=== PATIENT | female | born 1975 | race Caucasian/White ===

== ENCOUNTER 2021-12-12 09:52 | Outpatient (CLI) | payer BC, SELFPAY ==
--- OUTSIDE RECORDS SUMMARY | 2021-12-12 09:56 | XMS_ITS | Encounter Summary ---
:1975 Author Organization [facility] Address [address] [place] [address] Care Team Providers Name Role Phone Lee Hannon MD Primary Care Provider Reason for Visit Reason Comments Med Refill Encounter Details Date Type Department Care Team Description 09/10/2020 Refill Lee Berkowitz MD Anxiety [address] [place] [address] [place] [address] [place] [address] (Wo rk) Social History Tobacco Use Types Packs/Day Years Used Date Never Smoker Smokeless Tobacco: Never Used Alcohol Use Standard Drinks/Week Comments Never 0 (1 standard drink = 0.6 oz pure alcoho l) Alcohol Habits Answer Date Recorded How often do you have a drink containing alcohol? Never 02/13/2020 How many drinks containing alcohol do you have on a typical Not asked day when you are drinking? How often do you have six or more drinks on one occasion? No t asked Comment: Not asked Sex Assigned at Date Recorded Female 04/13/2021 4:03 PM BOW STRING MAKER documented as of this encounter Miscellaneous Notes Telephone Encounter - Lee Hannon MD - 09/14/2020 12:40 PM CDT Rx sent Telephone Encounter - Hayley Valadez MA - 09/14/2020 6:04 AM CDT Last visit in provider department: 07/09/2020 Last visit requested medication was discussed: 02/26/20 Upcoming appointment with provider: none Last Rx: 03/11/20, #180, 1 refill Requested Prescriptions Pending Prescriptions Disp Refills ??? venlafaxine XR (EFFEXOR-XR) 150 MG 24 hr capsule [Pharmacy Med Name: VENLAFAXINE HCL ER 150MG CP24] 180 capsule 1 Sig: TAKE ONE CAPSULE BY MOUTH TWICE A DAY WITH FOOD 07/09/20:PHQ-9: 12 / JUAREZ-7: 15 Vitals: BP Readings from Last 2 Encounters: 07/09/20 122/80 03/10/20 128/82 documented in this encounter Plan of Treatment Not on filedocumented as of this encounter Visit Diagnoses Diagnosis Anxiety Anxiety state, unspecified documented in this encounter Care Teams Senior Information Security Consultant Relationship Specialty Start Date End Date Lee Hannon MD PCP - General Family Medicine 02/26/20 03/20/[address] [place] [address] documented as of this encounter
--- OUTSIDE RECORDS SUMMARY | 2021-12-12 09:56 | XMS_ITS | Encounter Summary ---
:1975 Author Organization [facility] Address [address] [place] [address] Care Team Providers Name Role Phone Benito Leonardo MD Primary Care Provider Reason for Visit Reason Comments Med Refill Encounter Details Date Type Department Care Team Description 03/11/2021 Refill [place] Joseph Guevara MD Restless legs [address] [place], [place] [address] [place], [place] [phone] (Wo rk) Social History Tobacco Use Types [...] at Date Recorded Female 04/13/2021 4:03 PM TECHNICAL COMMUNICATOR documented as of this encounter Miscellaneous Notes Telephone Encounter - Hayley Valadez MA - 03/14/2021 6:39 AM TECHNICAL COMMUNICATOR Rx completed on 05/25/20, #90, 3 refills Requested Prescriptions Pending Prescriptions Disp Refills ??? rOPINIRole (REQUIP) 1 MG tablet [Pharmacy Med Name: ROPINIROLE HCL 1MG TABS] 90 tablet 3 Sig: TAKE ONE TABLET BY MOUTH AT NIGHT FOR RESTLESS LEG SYNDROME E-Prescribing Status: Receipt confirmed by pharmacy (05/25/2020 ??5:39 PM CDT) NICAL COMMUNICATOR documented in this encounter Plan of Treatment Not on filedocumented as of this encounter Visit Diagnoses Diagnosis Restless legs Restless legs syndrome (RLS) documented in this encounter Care Teams Licensed Reactor Operator Relationship Specialty Start Date End Date Benito Leonardo MD PCP - General 11/17/[address] [place] [address] documented as of this encounter
--- OUTSIDE RECORDS SUMMARY | 2021-12-12 09:56 | XMS_ITS | Encounter Summary ---
:1975 Author Organization [facility] Address [address] [place] [address] Care Team Providers Name Role Phone Lee Hannon MD Primary Care Provider Reason for Visit Reason Onset Date Comments Ropinirole refill 03/19/2020 Encounter Details Date Type Department Care Team Description 03/19/2020 Telephone [place] None, Pcp Ropinirole refill [address] [place], [place] [address] [place], [place] [phone] Social History Tobacco Use Types Packs/Day Years [...] at Date Recorded Female 04/13/2021 4:03 PM LOGISTIC SPECIALIST documented as of this encounter Miscellaneous Notes Telephone Encounter - Joseph Guevara MD - 03/19/2020 5:27 PM CST I called and talked to Mirella and sent in the RX STIC SPECIALIST Telephone Encounter - Maty Barbour RN - 03/19/2020 4:02 PM CST Please review request, patient has not been seen in [place] since 02/2019, last evaluated in OBGYN. STIC SPECIALIST Telephone Encounter - Trang Ivan - 03/19/2020 3:39 PM CST Pt called stating she had contacted her pharmacy [facility] last week to have her Ropinirole refilled and they have not heard anything back yet. Please call Pt at [phone] to advise. STIC SPECIALIST documented in this encounter Plan of Treatment Not on filedocumented as of this encounter Visit Diagnoses Diagnosis Restless legs Restless legs syndrome (RLS) documented in this encounter Care Teams An/Syq 13 Nav/C2 Operator Relationship Specialty Start Date End Date Lee Hannon MD PCP - General Family Medicine 02/26/20 03/20/[address] [place] [address] documented as of this encounter
--- OUTSIDE RECORDS SUMMARY | 2021-12-12 09:56 | XMS_ITS | Encounter Summary ---
:1975 Author Organization [facility] Address [address] [place] [address] Care Team Providers Name Role Phone Lee Hannon MD Primary Care Provider Encounter Details Date Type Department Care Team Description 05/06/2020 Orders Only Family Med Lee Hannon MD [address] [facility] [address] [place] [address] [place] [phone] [place] [phone] (Wo rk) Social History Tobacco Use Types [...] at Date Recorded Female 04/13/2021 4:03 PM PLAY THERAPIST documented as of this encounter Plan of Treatment Not on filedocumented as of this encounter Visit Diagnoses Not on filedocumented in this encounter Care Teams Boarder Steam Relationship Specialty Start Date End Date Lee Hannon MD PCP - General Family Medicine 02/26/20 03/20/[address] [place] [phone] documented as of this encounter
--- OUTSIDE RECORDS SUMMARY | 2021-12-12 09:56 | XMS_ITS | Encounter Summary ---
:1975 Author Organization [facility] Address [address] [place] [address] Care Team Providers Name Role Phone Lee Hannon MD Primary Care Provider Reason for Visit Reason Onset Date Comments increase dose on the ropinirole 05/25/2020 Encounter Details Date Type Department Care Team Description 05/25/2020 Telephone Joseph Washington increase dose on the [address] [address] MD Elijah ropinirole [place], [place] [address] [place] [address] [place] [address] Social History Tobacco Use Types Packs/Day Years [...] at Date Recorded Female 04/13/2021 4:03 PM SANTA'S HELPER documented as of this encounter Miscellaneous Notes Telephone Encounter - Maty Barbour RN - 05/26/2020 8:05 AM CDT Patient informed. Telephone Encounter - Joseph Guevara MD - 05/25/2020 5:39 PM CDT I have sent in a new prescription for Mirella for the 1 mg pill that she can take 1 at night. Any problems let me know Telephone Encounter - Maty Barbour RN - 05/25/2020 1:31 PM CDT Please advise on request for Requip Rx at a higher dose. Telephone Encounter - Honey Russo - 05/25/2020 1:08 PM CDT Pt calls stating that she has been taking 2 pills of her ropinirole for her restless leg syndrome and she is out now. She is wondering if Dr. Nava would send in a refill for the increased dose to [facility] pharmacy? Please advise. documented in this encounter Plan of Treatment Not on filedocumented as of this encounter Visit Diagnoses Diagnosis Restless legs Restless legs syndrome (RLS) documented in this encounter Care Teams Spring Former Hand Relationship Specialty Start Date End Date Lee Hannon MD PCP - General Family Medicine 02/26/20 03/20/[address] [place] [address] documented as of this encounter
--- OUTSIDE RECORDS SUMMARY | 2021-12-12 09:56 | XMS_ITS | Encounter Summary ---
:1975 Author Organization [facility] Address [address] [place] [address] Care Team Providers Name Role Phone Lee Hannon MD Primary Care Provider Reason for Visit Reason Onset Date Comments med refill 11/24/2020 Encounter Details Date Type Department Care Team Description 11/24/2020 Telephone Joseph Washington MD med refill [address] [place], [place] [address] [place], [place] [phone] (Wo rk) Social History Tobacco Use Types [...] at Date Recorded Female 04/13/2021 4:03 PM EMPLOYEE RELATIONS SPECIALIST documented as of this encounter Miscellaneous Notes Telephone Encounter - Celi Monson LPN - 11/25/2020 9:24 AM CDT Patient informed Telephone Encounter - Joseph Guevara MD - 11/25/2020 8:38 AM CDT Prescription for albuterol inhaler [facility] to [facility] Telephone Encounter - Maty Barbour RN - 11/25/2020 7:56 AM CDT Review request. Telephone Encounter - Lucy Patel - 11/24/2020 4:54 PM CDT Patient needs RX refilled. Albuterol inhaler. She cannot come in right now as she has covid. Diagnosed last week. Coughing a lot on the phone. Please send to [facility] [place] documented in this encounter Plan of Treatment Not on filedocumented as of this encounter Visit Diagnoses Diagnosis Reactive airway disease without complica tion, unspecified asthma severity, unspecified whether persistent documented in this encounter Care Teams Giver Relationship Specialty Start Date End Date Lee Hannon MD PCP - General Family Medicine 02/26/20 03/20/[address] [place] [address] documented as of this encounter
--- OUTSIDE RECORDS SUMMARY | 2021-12-12 09:56 | XMS_ITS | Encounter Summary ---
:1975 Author Organization [facility] Address [address] [place] [address] Care Team Providers Name Role Phone Benito Leonardo MD Primary Care Provider Reason for Visit Reason Comments Med Refill Encounter Details Date Type Department Care Team Description 06/06/2021 Refill [facility] Chelle Jacques MD Palpitations [address] [place] [address] [place] [address] [place] [address] [phone] (Wo rk) Social History Tobacco Use Types [...] at Date Recorded Female 04/13/2021 4:03 PM MEDIA ACCOUNT EXECUTIVE documented as of this encounter Miscellaneous Notes Telephone Encounter - Rossana Villatoro LPN - 06/07/2021 6:01 AM CDT Requested Prescriptions Pending Prescriptions Disp Refills ??? verapamil SR (CALAN-SR) 120 MG CR tablet [Pharmacy Med Name: VERAPAMIL HCL ER 120MG TBCR] 90 tablet 3 Sig: TAKE 1 TABLET BY MOUTH EVERY NIGHT. DO NOT CRUSH OR CHEW Last rx: verapamil SR (CALAN-SR) 120 MG CR tablet [[id number]] ?? Order Details Dose, Route, Frequency: As Directed Dispense Quantity: 100 tablet Refills: 1 ?? Sig: TAKE 1 TABLET BY MOUTH EVERY NIGHT. DO NOT CRUSH OR CHEW ?? Start Date: 03/15/21 End Date: -- Written Date: 03/15/21 Expiration Date: 03/15/22 E-prescribed to requesting pharmacy, [facility] - [place], [place] - [address] [place] [address], E-Prescribing Status: Receipt confirmed by pharmacy (03/15/2021 ??2:13 PM MEDIA ACCOUNT EXECUTIVE) Refill available at requesting pharmacy. Pharmacy notified. documented in this encounter Plan of Treatment Not on filedocumented as of this encounter Visit Diagnoses Diagnosis Palpitations documented in this encounter Care Teams Hand Method Lasting Machine Operator Relationship Specialty Start Date End Date Benito Leonardo MD PCP - General 11/17/[address] [place] [address] documented as of this encounter
--- OUTSIDE RECORDS SUMMARY | 2021-12-12 09:56 | XMS_ITS | Encounter Summary ---
:[address] [facility] Address [address] [place] [address] Care Team Providers Name Role Phone Lee Hannon MD Primary Care Provider Reason for Visit Reason Onset Date Comments RX 05/12/2020 Encounter Details Date Type Department Care Team Description 05/12/2020 Telephone Joseph Washington MD RX [address] [facility] [address] [place], [place] [address] [place], [place] [phone] (Wo rk) Social History Tobacco Use Types [...] at Date Recorded Female 04/13/2021 4:03 PM TELEPATHIST documented as of this encounter Miscellaneous Notes Telephone Encounter - Maty Barbour RN - 05/12/2020 1:57 PM CDT Patient informed. Telephone Encounter - Joseph Guevara MD - 05/12/2020 12:32 PM CDT I reviewed Nando's notations and did not see nothing specific other than the fact that she does haveseasonal allergies. However I did send him to [facility] for Medrol Dosepak and 1 refill. Call Mirella let her know that I sent in for the Medrol Dosepak. The Medrol Dosepak a course is for 6 days starting at 6 pills a day going down to 1 pill a day. If she had a different form of prednisone that she prefers let me know. Telephone Encounter - Maty Barbour RN - 05/12/2020 11:24 AM CDT Please review request, previous Nando patient. Telephone Encounter - Marleen Bond - 05/12/2020 10:57 AM CDT Patient is requesting RX for prednisone sent to [facility] for her allergies. Please advise. documented in this encounter Plan of Treatment Not on filedocumented as of this encounter Visit Diagnoses Diagnosis Seasonal allergies - Primary Allergic rhinitis, cause unspecified documented in this encounter Care Teams Gas Utility Worker Relationship Specialty Start Date End Date Lee Hannon MD PCP - General Family Medicine 02/26/20 03/20/[address] [place] [address] documented as of this encounter
--- OUTSIDE RECORDS SUMMARY | 2021-12-12 09:56 | XMS_ITS | Encounter Summary ---
:1975 Author Organization [facility] Address [address] [place] [address] Care Team Providers Name Role Phone Lee Hannon MD Primary Care Provider Reason for Visit Reason Onset Date Comments Med Refill 03/10/2020 Encounter Details Date Type Department Care Team Description 03/10/2020 Refill [facility] Virtual Assistant [address] [place] [address] [place] [address] [place], [place] [address] [phone] Social History Tobacco Use Types Packs/Day Years [...] at Date Recorded Female 04/13/2021 4:03 PM CRIMINAL JUDGE documented as of this encounter Miscellaneous Notes Telephone Encounter - Maty Barbour RN - 03/11/2020 11:13 AM CST Please review request patient used to see Katty Rojas. INAL JUDGE Telephone Encounter - Marleen Bond - 03/11/2020 10:57 AM CST Patient is requesting this today please. She is out. INAL JUDGE Telephone Encounter - Vania Ramos LPN - 03/10/2020 3:40 PM CRIMINAL JUDGE Last visit in provider department: 02/26/2020 Last visit requested medication was discussed:02/26/20 Upcoming appointment with provider: Visit date not found Last Rx: 02/13/19 #180 with 3 refills Requested Prescriptions Pending Prescriptions Disp Refills ??? venlafaxine XR (EFFEXOR-XR) 150 MG 24 hr capsule 180 capsule 3 Sig: Take 1 capsule (150 mg total) by mouth 2 (two) times a day Take with food. 02/13/20 PHQ9- 10 GAD7- 15 INAL JUDGE documented in this encounter Plan of Treatment Not on filedocumented as of this encounter Visit Diagnoses Diagnosis Anxiety Anxiety state, unspecified documented in this encounter Care Teams Scoop Machine Operator Relationship Specialty Start Date End Date Lee Hannon MD PCP - General Family Medicine 02/26/20 03/20/[address] [place] [address] documented as of this encounter
--- OUTSIDE RECORDS SUMMARY | 2021-12-12 09:56 | XMS_ITS | Encounter Summary ---
:1975 Author Organization [facility] Address [address] [place] [address] Care Team Providers Name Role Phone Benito Leonardo MD Primary Care Provider Reason for Visit Reason Onset Date Comments venlafaxine XR (EFFEXOR-XR) 150 MG 24 hr capsule 11/22/2021 Encounter Details Date Type Department Care Team Description 11/22/2021 Telephone [place] Aguirre MD venlafaxine XR [address] [place] [address] (EFFEXOR-XR) 150 MG [address] [place] [address] Drive [address] hr capsule [phone] [place] [address] Social History Tobacco Use Types Packs/Day Years [...] at Date Recorded Female 04/13/2021 4:03 PM SUBSTANCE ABUSE COUNSELOR documented as of this encounter Miscellaneous Notes Telephone Encounter - Rachael Rene MA - 11/28/2021 5:22 AM CDT PA approved from 11/26/2021 - 11/26/2022. Pharmacy notified. ANH # [id number]. Telephone Encounter - Malgorzata Lu LPN - 11/22/2021 2:42 PM CDT venlafaxine XR (EFFEXOR-XR) 150 MG 24 hr capsule BIN: [id number] PCN: [facility]: PLAN: BCBS of [place] Medicaid PHONE: [phone] ID: [id number] PA completed per [facility], sent to insurance plan [place]: [id number] - [place] - Rx #: [id number] documented in this encounter Plan of Treatment Not on filedocumented as of this encounter Visit Diagnoses Not on filedocumented in this encounter Care Teams Scrap Materials Buyer Relationship Specialty Start Date End Date Benito Leonardo MD PCP - General 11/17/[address] [place] [address] documented as of this encounter
--- OUTSIDE RECORDS SUMMARY | 2021-12-12 09:56 | XMS_ITS | Encounter Summary ---
:[address] [facility] Address [address] [place] [address] Care Team Providers Name Role Phone Lee Hannon MD Primary Care Provider Reason for Visit Reason Onset Date Comments Med Refill 03/14/2021 Encounter Details Date Type Department Care Team Description 03/14/2021 Refill Lee Berkowitz MD Anxiety [address] [place] [address] [place] [address] [place] [address] (Wo rk) Social History [...] at Date Recorded Female 04/13/2021 4:03 PM FOOD PREPARER documented as of this encounter Miscellaneous Notes Telephone Encounter - Lee Hannon MD - 03/15/2021 2:20 PM CST Rx sent. See other rx request message PREPARER Telephone Encounter - Vania Ramos LPN - 03/14/2021 1:34 PM FOOD PREPARER Last visit in provider department: 02/26/20 Last visit requested medication was discussed: 02/26/20 Upcoming appointment with provider: Visit date not found Last Rx: 12/13/20 #180 no refills Requested Prescriptions Pending Prescriptions Disp Refills ??? venlafaxine XR (EFFEXOR-XR) 150 MG 24 hr capsule 180 capsule 0 Sig: TAKE ONE CAPSULE BY MOUTH TWICE A DAY WITH FOOD Labs: 03/05/20 Vitals: BP Readings from Last 2 Encounters: 07/09/20 122/80 03/10/20 128/82 Patient is due for CP appointment. PSR/Nurse: Please contact patient to assist with scheduling. PREPARER documented in this encounter Plan of Treatment Not on filedocumented as of this encounter Visit Diagnoses Diagnosis Anxiety Anxiety state, unspecified documented in this encounter Care Teams Flatwork Washer Relationship Specialty Start Date End Date Lee Hannon MD PCP - General Family Medicine 02/26/20 03/20/[address] [place] [address] documented as of this encounter
--- OUTSIDE RECORDS SUMMARY | 2021-12-12 09:56 | XMS_ITS | Clinical Summary ---
:1975 Author Organization [facility] Address [address] [place] [address] Care Team Providers Name Role Phone Benito Leonardo MD Primary Care Provider Allergies Active Allergy Reactions Severity Noted Date Comments Codeine Other (see comments) 05/09/2000 general ized disorientation Per patient: Ca nnot remember anything, out o f it, drunk-like Environmental 02/13/2019 Seasonal 02/13/2019 Medications Medication Sig Dispensed Refills Start Date End Date Status levonorgestrel 1 Device by 0 02/23/2017 Ac tive (MIRENA) 20 MCG/24HR Intrauterine route IUD rOPINIRole (REQUIP) Take ONE at night 90 tablet 3 05/25/2020 Active 1 MG for RESTLESS LEG tabletIndications: SYNDROME Restless legs albuterol HFA Inhale 2 puffs 8.5 g 11 11/25/2020 Active (ProAir HFA) 108 (90 every 4 (four) Base) MCG/ACT hours if needed inhalerIndications: for wheezing or Reactive airway shortness of disease without breath complication, unspecified asthma severity, unspecified whether persistent verapamil SR TAKE 1 TABLET BY 100 tablet 1 03/15/2021 Active (CALAN-SR) 120 MG CR MOUTH EVERY NIGHT. tabletIndications: DO NOT CRUSH OR Palpitations CHEW venlafaxine XR TAKE ONE CAPSULE 100 capsule 1 03/15/2021 Active (EFFEXOR-XR) 150 MG BY MOUTH TWICE A 24 hr DAY WITH FOOD capsuleIndications: Anxiety Active Problems Problem Noted Date COVID-19 11/21/2020 Overview: 11/16/20 Elevated blood-pressure reading without diagnosis of h ypertension 03/10/2020 Stress 03/10/2020 Abnormal EKG 03/09/2020 Palpitations 03/09/2020 Abnormal uterine bleeding 12/01/2019 Menorrhagia with irregular cycle 12/01/2019 Class 3 severe obesity in adult 12/01/2019 S/P laparoscopic sleeve gastrectomy 09/26/2017 Anxiety Encounters Date Type Specialty Care Team Description 11/22/2021 Telephone Family Medicine Lee Hannon MD venamarjit axine XR (EFFEXOR-XR) 15 0 MG 24 hr capsule 11/18/2021 Telephone Family Medicine Benito Leonardo MD from Last 3 Months Immunizations Name Administration Dates Next Due H1N1 Inj Preservative Free 03/17/2009 Hepatitis B 05/27/1996, 04/23/1996 INFLUENZA QUADRIVALENT MDV (IM) 11/26/2018 Influenza 6mo-49yrs Quad Preservative 11/30/2017 Free IM Influenza TIV (IM) 11/30/2017, 11/27/2016, 12/03/2013, 12/04/2012, 12/05/2011, 12/20/2010, 01/26/2009 Influenza, Unspecified 11/26/2018, 12/06/2015, 12/02/2014, 12/03/2013, 12/04/2012, 12/05/2011, 12/20/2010, 01/26/2009 TD Preservative Free 04/11/2006 Tdap 09/20/2017 Tetanus 04/11/2006 Family History Relation Status Comments Brother 1 Alive Brother 2 Alive Father Alive Mother Alive Sister Alive Son 1 Alive Son 2 Alive Son 3 Alive Social History Tobacco Use Types Packs/Day Years [...] at Date Recorded Female 04/13/2021 4:03 PM PUBLICATIONS DISTRIBUTION CLERK Last Filed Vital Signs Vital Sign Reading Time Taken Comments Blood Pressure 122/80 07/09/2020 3:47 PM CDT Pulse 92 07/09/2020 3:47 PM CDT Temperature 36.8 ??C (98.2 ??F) 07/09/2020 3:47 PM CDT Respiratory Rate 16 07/09/2020 3:47 PM CDT Oxygen Saturation 95% 07/09/2020 3:47 PM CDT Inhaled Oxygen Concentration - - Weight 128 kg (281 lb 9.6 oz) 07/09/2020 3:47 PM CDT Height 160 cm (5' 3) 07/09/2020 3:47 PM CDT Body Mass Index 49.88 07/09/2020 3:47 PM CDT Plan of Treatment Health Maintenance Due Date Last Done Comments CT Colonography 1975 Colonoscopy 1975 Colorectal Cancer Screening 1975 FIT-DNA 1975 Mammogram 1975 Sigmoidoscopy 1975 iFOBT 1975 COVID-19 Vaccine (#1) 02/10/1976 Asthma Action Plan 08/09/1980 Asthma Control Test 11/18/2022 11/18/2021, 11/18/2021 Pap Smear 11/30/2022 12/01/2019, 05/05/2015 HPV Vaccines Aged Out No longer eligib le based on patient's age to complete this to pic Pneumococcal Vaccine: Aged Out No longer eligible based Pediatrics (0 to 5 Years) and on patient's age to At-Risk Patients (6 to 64 comple te this topic Years) Insurance Payer Benefit Plan / Subscriber ID Effective Dates Phone Addre ss Type Group BCBS OF BCBS OF [id number] [place] [id number] [place] [address] Care Teams Information Technology Auditor Relationship Specialty Start Date End Date Benito Leonardo MD PCP - General 11/17/[address] [place] [address]
--- OUTSIDE RECORDS SUMMARY | 2021-12-12 09:56 | XMS_ITS | Encounter Summary ---
:[address] [facility] Address [address] [place] [address] Care Team Providers Name Role Phone Benito Leonardo MD Primary Care Provider Reason for Visit Reason Onset Date Comments Med Refill 12/10/2020 Encounter Details Date Type Department Care Team Description 12/10/2020 Refill [facility] Women's Health Lee Hernández MD [facility] Aquatics Director [address] [place] [phone] [place], [place] [address] [phone] Social History Tobacco Use Types Packs/Day Years [...] at Date Recorded Female 04/13/2021 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 AMATIC MECHANIC Telephone Encounter - Gabby Patiño - 12/13/2020 4:11 PM CST [facility] pt AMATIC MECHANIC Telephone Encounter - Lee Hannon MD - 12/13/2020 1:02 PM CST Call for mood, BP follow up visit AMATIC MECHANIC Telephone Encounter - Donna Hood MA - 12/10/2020 1:21 PM CDT Last visit in provider department: 02/26/2020 Last visit requested medication was discussed: 02/26/2020 Upcoming appointment with provider: None Last Rx: venlafaxine XR (EFFEXOR-XR) 150 MG 24 hr capsule, #180 with no refills 09/14/2020 Requested Prescriptions Pending Prescriptions Disp Refills ??? venlafaxine XR (EFFEXOR-XR) 150 MG 24 hr capsule 180 capsule 0 Sig: TAKE ONE CAPSULE BY MOUTH TWICE A DAY WITH FOOD Most Recent Value 06/14/2020 - 12/11/2020 PHQ-9 Total Score 12 07/09/2020 Most Recent Value 06/14/2020 - 12/11/2020 JUAREZ-7 Total Score 15 07/09/2020 Vitals: BP Readings from Last 2 Encounters: 07/09/20 122/80 03/10/20 128/82 Patient is due for an appointment. PSR/Nurse: Please contact patient to assist with scheduling. documented in this encounter Plan of Treatment Not on filedocumented as of this encounter Visit Diagnoses Diagnosis Anxiety Anxiety state, unspecified documented in this encounter Care Teams Junior Media Buyer Relationship Specialty Start Date End Date Benito Leonardo MD PCP - General 11/17/[address] [place] [address] documented as of this encounter
--- OUTSIDE RECORDS SUMMARY | 2021-12-12 09:56 | XMS_ITS | Encounter Summary ---
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 Pt has established care outside of [facility]. TEMPERER Telephone Encounter - Gabby Patiño - 03/18/2021 4:12 PM CST LMTC at [phone] TEMPERER Telephone Encounter - Gabby Patiño - 03/16/2021 9:13 AM CST TC at [phone] TEMPERER Telephone Encounter - Lee Hannon MD - 03/15/2021 2:13 PM CST Rx sent Due for annual visit- follow up of hypertension and bariatric surgery labs. Please assist with scheduling. If she is in agreement, I will order previsit labs, please return message to me for orders. Of note- I saw her in [facility] (not in [place]) but she lives in [place] and had [facility] [place] [facility] locations for follow [facility]. TEMPERER Telephone Encounter - Rossana Villatoro LPN - 03/14/2021 6:36 AM CST Last visit in provider department: 07/09/2020 Last visit requested medication was discussed: med/dx has not been reviewed in the last year Upcoming appointment with provider: Visit date not found Last Rx: #90, 3 refills 05/13/2020 Request for next cycle Requested Prescriptions Pending Prescriptions Disp Refills ??? verapamil SR (CALAN-SR) 120 MG CR tablet [Pharmacy Med Name: VERAPAMIL HCL ER 120MG TBCR] 90 tablet 3 Sig: TAKE 1 TABLET BY MOUTH EVERY NIGHT. DO NOT CRUSH OR CHEW Labs: Results > one year old. No pending labs. Lab Results Component Value Date CREATININE 0.6 03/05/2020 BUN 14 03/05/2020 NA 135 03/05/2020 K 3.7 03/05/2020 CL 102 03/05/2020 CO2 25 03/05/2020 Vitals: BP Readings from Last 2 Encounters: 07/09/20 122/80 03/10/20 128/82 Patient is due for CP appointment. PSR/Nurse: Please contact patient to assist with scheduling. TEMPERER documented in this encounter Plan of Treatment Not on filedocumented as of this encounter Visit Diagnoses Diagnosis Palpitations documented in this encounter Care Teams Livestock Haulier Relationship Specialty Start Date End Date Benito Leonardo MD PCP - General 11/17/21 [address] [place] [address] documented as of this encounter
--- OUTSIDE RECORDS SUMMARY | 2021-12-12 09:56 | XMS_ITS | Encounter Summary ---
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 documented as of this encounter Last Filed Vital Signs Vital Sign Reading Time Taken Comments Blood Pressure 128/94 03/05/2020 1:18 PM STAFF AIR TACTICAL OFFICER Pulse - - Temperature - - Respiratory Rate - - Oxygen Saturation - - Inhaled Oxygen Concentration - - Weight - - Height - - Body Mass Index - - documented in this encounter Plan of Treatment Not on filedocumented as of this encounter Visit Diagnoses Not on filedocumented in this encounter Care Teams Reel Cutter Relationship Specialty Start Date End Date Lee Hannon MD PCP - General Family Medicine 02/26/20 03/20/[address] [place] [address] documented as of this encounter
--- OUTSIDE RECORDS SUMMARY | 2021-12-12 09:56 | XMS_ITS | Encounter Summary ---
:1975 Author Organization [facility] Address [address] [place] [address] Care Team Providers Name Role Phone Lee Hannon MD Primary Care Provider Reason for Visit Reason Comments Advice Only Consultation (Routine) - Closed Specialty Diagnoses / Procedures Referred By Contact Refer red To Contact Cardiology Diagnoses Right bundle branch block (RBBB) determined by electrocardiography Ashely Peterson, Cardiology [address] [place] [address] [address] [place] [address] [place], [place] Phone: [phone] Fax: Referral ID Status Reason Start Date Expiration Date Visits V isits Requested Authorized [id number] Closed Specialty 02/13/2020 02/12/2021 1 1 Services Required Encounter Details Date Type Department Care Team Description 03/10/2020 Consult [facility] Chelle Jacques, Palpitations (Primary Dx); [address] [place] [address] Abnormal EKG; [place] [address] [place] [address] Class 3 severe obesity without serious c omorbidity with body mass index (BMI) of 40.0 to 44.9 in adult, unspecified obesity type (HCC); [phone] [place], [place] [address] Elevated blood-pressure reading without diagnosis of hypertension; [phone] (Wo rk) Anxiety; Stress Social History Tobacco Use Types Packs/Day Years [...] at Date Recorded Female 04/13/2021 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 documented as of this encounter Last Filed Vital Signs Vital Sign Reading Time Taken Comments Blood Pressure 128/82 03/10/2020 8:42 AM CEMETERY WORKER Pulse 89 03/10/2020 8:42 AM CEMETERY WORKER Temperature 36.7 ??C (98 ??F) 03/10/2020 8:42 AM CEMETERY WORKER Respiratory Rate 16 03/10/2020 8:42 AM CEMETERY WORKER Oxygen Saturation 98% 03/10/2020 8:42 AM CEMETERY WORKER Inhaled Oxygen Concentration - - Weight 116 kg (256 lb 3.2 oz) 03/10/2020 8:42 AM CEMETERY WORKER Height - - Body Mass Index 45.38 02/26/2020 4:04 PM CEMETERY WORKER documented in this encounter Patient Instructions Patient InstructionsChelle Jacques MD - 03/10/2020 8:40 AM CST 1. Discontinue short acting verapamil 2. Start taking long-acting verapamil 180 mg every night 3. Purchase appropriate blood pressure cuff (not wrist one) 4. Check blood pressure and heart rate once daily and record 5. Consider checking blood pressure and heart rate when you feel that your heart racing and record 6. Contact Dr. Jacques in 1 to 2 weeks with an update on your symptoms as well as your blood pressure and heart rate readings TERY WORKER documented in this encounter Progress Notes Chelle Jacques MD - 03/10/2020 8:40 AM CST Images from the original note were not included. CARDIOLOGY OUTPATIENT CONSULTATION NOTE REQUESTING PROVIDER Ashely Peterson MD [address] [place] [phone] PRIMARY CARE PROVIDER Lee Hannon MD CHIEF COMPLAINT/REASON FOR VISIT Palpitations and abnormal ECG HISTORY OF PRESENT ILLNESS Mirella Edwards is a very pleasant 44-year-old woman who was referred for palpitations and an abnormal ECG. She has no known cardiovascular history. Ms. Edwards states that she has been feeling her heart racing and/or pounding since last summer. She reports that she usually feels her heart racing while at rest such as sitting at her desk at work, watching TV, or eating dinner. She occasionally feels her heart racing while she is in bed and sometimes her heart races with activity. Her heart racing episodes can last anywhere between 2 minutes to 2 hours and tend to occur several times weekly. Her heart racing episodes start all of a sudden and resolve gradually over the course of approximately 5 minutes. During her heart racing episodes, she tendsto feel slightly woozy and a little bit short of breath. She denies syncope. She has had no peripheral edema. In addition to the racing heart episodes, she also sometimes feels like her heart is pounding. She particularly notices this while she is in bed or at her desk at work. She has checked her smart watch several times while her heart was racing and her heart rate reading was reportedly normal. Ms. Edwards is wondering if her symptoms may be due to, at least in part, to stress and anxiety. She reports that she has felt extremely anxious during the Covid-19 pandemic. She has had many panic attacks. 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 Ms. Edwards also reports stress and anxiety about fairly constant uterine bleeding. She reports that she underwent bariatric surgery (gastric sleeve) in 2018. She successfully lost weight with a low-carb diet. The low-carb diet, however, resulted in constant uterine bleeding. She then tried a keto diet, but this was unsuccessful in terms of weight loss. She recently saw her land use planner who prescribednorethindrone to address her uterine bleeding. Ms. Edwards states that she has a history of elevated blood pressures, but does not carry a history of hypertension. She was checking her blood pressure with a blood pressure wrist cuff at home, but recently learned that her blood pressure readings taken with a wrist cuff were inaccurate. She has askedher to purchase an arm blood pressure cuff so that she can monitor her blood pressure. Ms. Edwards is currently taking short acting verapamil 80 mg daily for treatment of headaches. She takes the medication at night. She is wondering if her blood pressure is elevated during the day because the verapamil is short acting and she takes the medication at night. Due to Ms. Edwards's reported palpitations, her land use planner ordered an ECG. The ECG report listed several abnormalities, prompting this referral. The following portions of the patient's history were reviewed and updated as appropriate: allergies,current medications, family history, medical history, social history, surgical history and problem list. ALLERGIES Allergies Allergen Reactions ??? Codeine Other (see comments) generalized disorientation Per patient: Cannot remember anything, out of it, drunk-like ??? Environmental ??? Seasonal HOME MEDICATIONS Current Outpatient Medications Medication Instructions ??? albuterol HFA (PROAIR HFA) 108 (90 Base) MCG/ACT inhaler 2 puffs, Inhalation, Every 4 hours PRN ??? levonorgestrel (MIRENA) 20 MCG/24HR IUD 1 Device, Intrauterine ??? norethindrone (AYGESTIN) 5 mg, Oral, Daily ??? rOPINIRole (REQUIP) 0.5 mg, Oral, Daily ??? venlafaxine XR (EFFEXOR-XR) 150 mg, Oral, 2 times daily, Take with food. ??? verapamil SR (CALAN SR) 120 mg, Oral, Nightly, Do not crush or chew. PAST MEDICAL HISTORY/CARDIAC HISTORY 1. Elevated blood pressure 2. Palpitations 3. Anxiety 4. Obesity status post bariatric surgery (sleeve gastrectomy) in 2018 with residual obesity 5. Abnormal uterine bleeding 6. Menorrhagia 7. Asthma 8. Gastroesophageal reflux disease 9. Allergic rhinitis 10. Eczema 11. Migraine headaches 12. Status post sinus surgery 13. Status post tubal ligation 14. Status post spine surgery OBSTETRIC HISTORY Three pregnancies, all spontaneous vaginal delivery. No complications. SOCIAL HISTORY . 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 Has never smoked or use smokeless tobacco. Does not drink alcohol or use illicit drugs. FAMILY HISTORY Maternal grandmother of a thoracic aortic aneurysm in her 60s Paternal grandmother had several strokes and myocardial infarctions at an older age PHYSICAL EXAMINATION Visit Vitals BP 128/82 (BP Location: Left arm, Patient Position: Sitting) Pulse 89 Temp 36.7 ??C (98 ??F) Resp 16 Wt 116 kg (256 lb 3.2 oz) SpO2 98% BMI 45.38 kg/m?? OB Status IUD Smoking Status Never Smoker BSA 2.27 m?? GENERAL: Very pleasant obese woman who appears somewhat anxious EYES: Anicteric sclera. No xanthelasmas. NECK: No palpable masses. VESSELS: Carotid uptake normal bilaterally. No carotid, subclavian or abdominal bruits. Radial and pedal pulses full and symmetrical. LUNGS: Clear to auscultation bilaterally. No accessory muscle use. HEART: Regular rate and rhythm. Normal S1 and S2. No murmurs appreciated. PMI nondisplaced. JVP flat. ABDOMEN: Soft, nontender, nondistended. Bowel sounds present. EXTREMITIES: No peripheral edema. SKIN: No rashes. DIAGNOSTICS Lab Results Component Value Date WBC 6.6 03/05/2020 HGB 12.7 03/05/2020 HCT 38.8 03/05/2020 MCV 91.5 03/05/2020 PLT 364 03/05/2020 Chemistry Component Value Date/Time NA 135 03/05/2020 1325 K 3.7 03/05/2020 1325 CL 102 03/05/2020 1325 CO2 25 03/05/2020 1325 BUN 14 03/05/2020 1325 CREATININE 0.6 03/05/2020 1325 Component Value Date/Time CALCIUM 9.4 03/05/2020 1325 ALKPHOS 87 03/05/2020 1325 AST 25 03/05/2020 1325 ALT 24 03/05/2020 1325 BILITOT <0.7 03/05/2020 1325 CGFR Date Value Ref Range Status 03/05/2020 >60 Final AAGFR Date Value Ref Range Status 03/05/2020 >60 Final Comment: GFR calculated from serum creatinine value Chronic Kidney Disease less than 60 mL/min/1.73 m2 Kidney Failure less than 15 mL/min/1.73 m2 Note: effective 06/20/06 IDMS-Traceable MDRD Study Equation used. Lab Results Component Value Date ALT 24 03/05/2020 AST 25 03/05/2020 ALKPHOS 87 03/05/2020 BILITOT <0.7 03/05/2020 Lab Results Component Value Date CHOL 239 (H) 03/05/2020 TRIG 75 03/05/2020 HDL 51 03/05/2020 LDLCALC 173 (H) 03/05/2020 Lab Results Component Value Date TSH 0.83 03/05/2020 No results found for: INR, PROTIME ECG: February 13, 2020 per my independent review: Normal sinus rhythm. Left axis deviation. CHEST X-RAY: None 48-HOUR HOLTER MONITOR: None TRANSTHORACIC ECHOCARDIOGRAM: None VISIT DIAGNOSES 1. Palpitations 2. Abnormal EKG 3. Class 3 severe obesity without serious comorbidity with body mass index (BMI) of 40.0 to 44.9 in adult, unspecified obesity type (HCC) 4. Elevated blood-pressure reading without diagnosis of hypertension 5. Anxiety ASSESSMENT / PLAN #1 Palpitations #2 Abnormal ECG #3 Elevated blood pressure #4 Anxiety #5 Stress #6 Class 3 obesity, BMI 46.4 Ms. Edwards and I had a lengthy conversation regarding her symptoms and possible etiologies. I advised Ms. Edwards that her palpitations are likely benign and I agree with her assessment that stress and anxiety are the likely causes for her symptoms. I suggested that she wear a 30-day event monitor to record her heart rhythm during her heart racing/pounding episodes, but she deferred. Instead, we agreed upon the following plan: 1. Discontinue short acting verapamil 2. Start taking long-acting verapamil 180 mg every night 3. Purchase an appropriate blood pressure cuff (not wrist one) 4. Check blood pressure and heart rate once daily and record 5. Consider checking blood pressure and heart rate when she feels that her heart is racing or pounding and record 6. Contact Dr. Jacques in 1 to 2 weeks with an update on her symptoms as well as her blood pressure and heart rate readings MARGIN CODE Total time: 45 minutes, 25 minutes counseling. TERY WORKER Lee Hannon MD - 03/10/2020 8:40 AM CST Note reviewed, thank you. TERY WORKER documented in this encounter Plan of Treatment Not on filedocumented as of this encounter Visit Diagnoses Diagnosis Palpitations - Primary Abnormal EKG Nonspecific abnormal electrocardiogram ( ECG) (EKG) Class 3 severe obesity without serious c omorbidity with body mass index (BMI) of 40.0 to 44.9 in adult, unspecified obesity ty pe (HCC) Elevated blood-pressure reading without diagnosis of hypertension Elevated blood pressure reading without diagnosis of hypertension Anxiety Anxiety state, unspecified Stress Other psychological or physical stress, not elsewhere classified documented in this encounter Care Teams Punchboard Inserter Relationship Specialty Start Date End Date Lee Hannon MD PCP - General Family Medicine 02/26/[address] [place] [address] documented as of this encounter
--- OUTSIDE RECORDS SUMMARY | 2021-12-12 09:56 | XMS_ITS | Clinical Summary ---
:1975 Author Organization [facility] [place] [address] Care Team Providers Name Role Phone Katty Rojas RETAIL MANAGER IN TRAINING Primary Care Provider Unavailable Benito Galvez MD Unavailable [phone] Zoie Burrell RN Unavailable Allergies Active Allergy Reactions Severity Noted Date Comments Codeine Other - Describe In 02/23/2017 Per wilberto ent: Cannot Comment Field remember anyth ing, out of it, jorje perez Medications Medication Sig Dispensed Refills Start Date End Date Status rOPINIRole (REQUIP) Take 1 tablet by 0 02/23/2017 Active 0.25 mg tablet mouth. 0.25-0.50 mg prn venlafaxine (EFFEXOR) Take 300 mg by 0 02/23/2017 Active 100 mg tablet mouth once daily in the afternoon. levonorgestrel Inject 1 Device 1 Device 0 02/23/2017 Active intrauterine device intrauterine one (MIRENA) 20 mcg/24 hr time for 1 dose. (5 years) IUD albuterol HFA Inhale 2 Puffs by 0 02/23/2017 Active (VENTOLIN HFA) 90 mouth every 4 hours mcg/actuation inhaler if needed. verapamil (CALAN) 40 Take 1 tablet by 60 tablet 0 09/26/2017 Active mg tabletIndications: mouth twice daily S/P laparoscopic sleeve gastrectomy Active Problems Patient Care Coordination Note Formatting of this note is different fro m the original. Weight Management - Adult Surgical Progr am Initial Consult 03/15/2017 Dr. Domingo Arce dsen Intake:299 Wt Readings from Last 1 Encounters: 03/15/17 135.8 kg (299 lb 6.4 oz) lbs Planned Operation undecided Payor: BLUE CROSS / Plan: BLUE CROSS [facility] / Product Type: *No Product type* / Est. Pgm Completion: October, Procedure Location: [facility] Co-morbidities: To be determined Orders: Labs Yes okay Imaging N/A. GB out in 1998 Pre-Surgery Program Consults: - Registered Dietitian 6 03/15/17 04/13/17 05/14/17 06/13/17 - Psychological Evaluation: Alka hughes 04/23/17 and 05/21/17 Referrals: Problem Noted Date Morbid obesity 03/28/2018 S/P laparoscopic sleeve gastrectomy 09/26/2017 Overview: Dr. Galvez Hypertension 03/15/2017 Hyperlipidemia 03/15/2017 Resolved Problems Problem Noted Date Resolved Date Morbid obesity with BMI of 50.0-59.9, adult 03/15/2017 03/28/2018 Family History Medical History Relation Name Comments Hyperlipidemia Maternal Grandfather Hypertension Maternal Grandfather Obesity Maternal Grandfather Hyperlipidemia Maternal Grandmother Hypertension Maternal Grandmother Stroke Maternal Grandmother Diabetes Mother Hyperlipidemia Mother Hypertension Mother Obesity Mother Relation Name Status Comments Brother Alive Father Alive Maternal Grandfather Maternal Grandmother Alive Mother Alive Paternal Grandmother Sister Alive Social History Tobacco Use Types Packs/Day Years Used Date Never Smoker Smokeless Tobacco: Never Used Tobacco Cessation: Counseling Given: No Alcohol Use Standard Drinks/Week Comments No 0 (1 standard drink = 0.6 oz pure alcoho l) rarely Alcohol Habits Answer Date Recorded How often do you have a drink containing alcohol? Not asked How many drinks containing alcohol do you have on a typical Not asked day when you are drinking? How often do you have six or more drinks on one occasion? 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 ENAMEL LABORER Oxygen Saturation 100% 09/27/2017 7:30 AM CDT Inhaled Oxygen Concentration - - Weight 112.5 kg (248 lb) 09/26/2019 12:00 PM CDT Height 160 cm (5' 2.99) 09/26/2019 12:00 PM CDT Body Mass Index 43.94 09/26/2019 12:00 PM CDT Plan of Treatment Health Maintenance Due Date Last Done Comments COVID-19 vaccine series (#1) 02/10/1976 Tdap 08/09/1986 Depression screening for age 12+ 1987 Hepatitis C screening for age 0708/09/1993 18-79 Tetanus booster 1995 Pap test for age 21-65 08/09/1996 Colonoscopy through age 75 08/09/2020 Lipids for age 45-75 08/09/2020 Mammogram for age 45-75 08/09/2020 BMI (ht and wt on same day) for 09/25/2020 09/26/2019, 07/2018, age 18+ 10/11/2018, Additional history exists Influenza for age 9-49 10/06/2021 Medical Devices Implanted Type Area Traffic Rate Computer Device Shelf Model / Identifier Expiration Serial / Date Lot Mesh Ventral 60 Seamguard [place] Flex - [id number] N/A: Irene Escamilla And 04/04/2020 [id number] / Implanted: Qty: 5 on 09/26/2017 by Benito Marin MD at [facility] [employer] / [id number] Results Not on filefrom Last 3 Months Insurance Payer Benefit Plan / Subscriber ID Effective Dates Phone Addre ss Type Group BLUE CROSS BLUE CROSS OF [id number] 2017-Present [address] [place] [address] Advance Directives Latest Code Status on File Code Status Date Activated Date Inactivated Comments Full Code 09/26/2017 9:08 AM 09/27/2017 4:26 PM Care Teams Consumer Affairs Specialist Relationship Specialty Start Date End Date Katty Rojas NP PCP - General Emergency Medicine 03/15/17 [address] [place] [address] Benito Galvez, Consulting Physician Surgery - General 07/07 07/23 [address] [phone] Zoie Burrell RN Nurse Clinician 07/31/17 [address] [place] [phone]
--- OUTSIDE RECORDS SUMMARY | 2021-12-12 09:56 | XMS_ITS | Encounter Summary ---
:1975 Author Organization [facility] Address [address] [place] [address] Care Team Providers Name Role Phone Lee Hannon MD Primary Care Provider Reason for Visit Reason Comments Foot Injury left foot, fell going down c amper steps 5-6 weeks ago, worsening Encounter Details Date Type Department Care Team Description 07/09/2020 Office Visit [place] Benito Leonardo, Left ankle pain, [address] unspecified chronicity [place], [place] [address] [place] ([place]x) [id number] [place], [place] [phone] [id number] Social History Tobacco Use Types Packs/Day Years [...] at Date Recorded Female 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 female. Chief Complaint Patient presents with ??? Foot Injury left foot, fell going down camper steps 5-6 weeks ago, worsening HPI Patient reports about 5 weeks ago she slipped on left foot going down a few steps then fell onto buttocks and left elbow. She does not recall the exact mechanism of what her foot did. In fact she did not really notice pain in that foot initially and was more focused on the pain in her buttocks and left elbow which have resolved. She has had continued left lateral ankle pain. Has not really tried anything for the pain yet. Pain is exacerbated with walking since step off motion. Pain is worse at the end of the day and after activity. The following portions of the patient's chart were reviewed in this encounter and updated as appropriate: Tobacco Allergies Meds Med Hx Surg Hx Fam Hx Soc Hx ROS ROS done as noted in HPI Objective Visit Vitals BP 122/80 (BP Location: Left arm, Patient Position: Sitting, BP Cuff Size: Large adult) Pulse 92 Temp 36.8 ??C (98.2 ??F) (Temporal) Resp 16 Ht 1.6 m (5' 3) Wt 128 kg (281 lb 9.6 oz) SpO2 95% BMI 49.88 kg/m?? OB Status IUD Smoking Status Never Smoker BSA 2.39 m?? Physical Exam GEN: well appearing, no acute distress, vital signs reviewed MSK: Left midfoot pain anterior to the left lateral medialis with mild swelling and no erythema. Ankle joint is stable with no laxity. Able to bear weight on left foot. CVS: Dorsalis pedis 2+ on right Assessment/Plan Diagnosis Plan 1. Left ankle pain, unspecified chronicity Diclofenac Sodium 1 % gel Patient probably sustained a left lateral ankle sprain. No indication for x-ray at this time. We will trial an ankle support brace. I suggested physical therapy however patient would like to try on herown first. I instructed her on a couple of exercises she can try couple times a day. I also instructed her to use the anti-inflammatory diclofenac gel as needed (avoiding oral NSAIDs due to history of gastric sleeve surgery). If she is not improving over the next few weeks on her own, I highly recommend she sees a physical therapist as these injuries can linger without appropriate therapy and exercise guidance. Return if symptoms worsen or fail to improve. Note created using voice dictation software. documented in this encounter Plan of Treatment Not on filedocumented as of this encounter Visit Diagnoses Diagnosis Left ankle pain, unspecified chronicity - Primary documented in this encounter Care Teams Domestic Cleaner Relationship Specialty Start Date End Date Lee Hannon MD PCP - General Family Medicine 02/26/20 03/20/[address] [place] [address] documented as of this encounter
--- OUTSIDE RECORDS SUMMARY | 2021-12-12 09:57 | XMS_ITS | Encounter Summary ---
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
--- OUTSIDE RECORDS SUMMARY | 2021-12-12 09:57 | XMS_ITS | Encounter Summary ---
:[address] [facility] Address [address] [place] [id number] Care Team Providers Name Role Phone None, Pcp Primary Care Provider Unavailable Reason for Visit Reason Comments Vaginal Bleeding Encounter Details Date Type Department Care Team Description 12/01/[address] [facility]'s [facility] [place], Anila jeffers with irregular cycle (Primary Dx); [facility] MD Roberta Abnormal u terine bleeding; Seam Checker Class 3 severe obesity witho ut serious comorbidity with body mass index (BMI) of 40.0 to 44.9 in adult, unspecified obesity type (HCC); [address] 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 Vaginal Bleeding Patient ID: Mirella Johnson is a 44 y.o. female HPI Mirella Johnson is a 44 y.o. who presents today for a problem visit regarding abnormal vaginal bleeding and menorrhagia despite Mirena IUD placement in 2015. She has a history of morbid obesity with current BMI of 41. She reports she did have a tubal ligation in the past for contraception, and a Mirena IUD was placed in 2010, again in 2015 for heavy vaginal bleeding presumed to be secondary tothe perimenopausal transition. She never underwent an endometrial biopsy. She was amenorrehic on this method. She underwent bariatric surgery in 2018, but did experience persistent vaginal bleeding daily after surgery. She reports her bleeding seemed to be dependent on her diet -- when she eats high pr otein, low carb options, she has heavy bleeding. She has no bleeding when she eats normally, with balanced options, but when she returns to a high protein diet, she has persistent vaginal bleeding. She admits more stress in the past 6 months with COVID, gained 35 lbs (and stopped bleeding), switched to Keto and has lost 15lbs -- but is now bleeding again. She admits feeling bloated with night sweats -- no clear hot flashes, but does feel overheated sometimes. She did experience this before her IUD was placed. She has never had an endometrial biopsy in the past. No LMP recorded. (Menstrual status: IUD). Sexually active: Yes Current contraception: IUD and BTL History of STI: No Review of Systems Constitutional: Negative for chills and fever. Eyes: Negative for visual disturbance. Respiratory: Negative for cough and shortness of breath. Cardiovascular: Negative for chest pain and palpitations. Gastrointestinal: Negative for abdominal pain, constipation, diarrhea, nausea and vomiting. Genitourinary: Positive for vaginal bleeding. Negative for dysuria, menstrual problem and pelvic pain. Neurological: Negative for dizziness, light-headedness and headaches. Past Medical History: Diagnosis Date ??? Allergic ??? Allergic rhinitis ??? Anxiety ??? Asthma ??? Bronchitis ??? Eczema ??? GERD (gastroesophageal reflux disease) ??? Headache ??? Hypertension ??? Pneumonia ??? Strep throat ??? Urinary tract infection ??? Varicella ??? Visual impairment Past Surgical History: Procedure Laterality Date ??? GASTROSTOMY GASTRIC SLEEVE ??? SINUS SURGERY ??? SPINE SURGERY ??? TUBAL LIGATION OB History 3 Para 3 Term 3 0 AB 0 Living 0 SAB 0 TAB 0 Ectopic 0 Multiple 0 Live Births 0 No family history on file. Current Outpatient Medications on File Prior to Visit Medication Sig Dispense Refill ??? albuterol HFA (PROAIR HFA) 108 (90 Base) MCG/ACT inhaler Inhale 2 puffs every 4 (four) hours if needed for wheezing or shortness of breath 8.5 g 11 ??? levonorgestrel (MIRENA) 20 MCG/24HR IUD 1 Device by Intrauterine route ??? rOPINIRole (REQUIP) 0.5 MG tablet Take 1 tablet (0.5 mg total) by mouth 1 (one) time each day 90tablet 3 ??? venlafaxine XR (EFFEXOR-XR) 150 MG 24 hr capsule Take 1 capsule (150 mg total) by mouth 2 (two) times a day Take with food. 180 capsule 3 ??? verapamil (CALAN) 80 MG tablet Take 1 tablet (80 mg total) by mouth 1 (one) time each day 90 tablet 3 No current facility-administered medications on file prior to visit. Allergies Allergen Reactions ??? Codeine Other (see comments) generalized disorientation Per patient: Cannot remember anything, out of it, drunk-like ??? Environmental ??? Seasonal Objective PHYSICAL EXAM Visit Vitals BP (!) 142/91 Pulse 104 Ht 1.62 m (5' 3.78) Wt 110 kg (242 lb 8.1 oz) BMI 41.91 kg/m?? OB Status IUD Smoking Status Never Smoker BSA 2.22 m?? Healthy ambulatory female. NAD. Affect appropriate. Face shield, no mask. Skin: warm and dry, no obvious lesions. Neuro: A&Ox3, no focal deficits. Cardiac: Regular rate, rhythm, no murmurs Lungs: Clear to auscultation bilaterally Abdomen: Soft, non-tender, no masses, rebound or guarding. Extremities: Normal pulses, appear normal, no edema. Varicosities: none. Pelvic: External Genitalia: no lesions or well estrogenized Vagina: normal mucosa, no discharge, no lesions Pelvic Supports: mild rectocele and cystocele Cervix: normal appearance, IUD strings visualized Uterus: Enlarged approximately 10w size, mobile, anteverted, non-tender Adnexa: normal adnexa or no mass, fullness, tenderness Anus and Perineum: defer exam Rectum: Deferred. Pap was collected today The following procedures were completed today; please see separate procedure notes: 1. IUD removal 2. Endometrial biopsy 3. Mirena IUD replacement Assessment/Plan Diagnoses and all orders for this visit: Menorrhagia with irregular cycle - Endometrial biopsy - levonorgestrel (MIRENA) 20 MCG/24HR IUD 20 mcg Abnormal uterine bleeding - Pap Smear - HPV High Risk DNA Detection with Genotyping - Endometrial biopsy Class 3 severe obesity without serious comorbidity with body mass index (BMI) of 40.0 to 44.9 in adult, unspecified obesity type (HCC) S/P bariatric surgery Screening for cervical cancer - Pap Smear - HPV High Risk DNA Detection with Genotyping 44 y.o. with a medical history of morbid obesity s/p gastric sleeve, here as a new patient to our office to discuss chronic abnormal vaginal bleeding for the past two years. We reviewed together the pathophysiology of perimenopausal bleeding, including impact of possible uterine pathology inclu ding fibroids, adenomyosis, or polyps, as well as occurrence of anovulatory bleeding in some women which can prolong or intensify flow with a new cycle. We reviewed rationale for evaluation of the uterine lining to exclude endometrial hyperplasia, to which she is at elevatged risk given her history ofpersistent abnormal bleeding and elevated BMI. She has not had a pelvic ultrasound previously. Otherwise, we reviewed management options for heavy regular menses in the decade preceding menopauseincluding medical management via oral agents such as Provera/Aygestin or Lysteda, injectable agents such as Depo-Provera, and the Mirena IUD for local progestin effect. We also reviewed management options including ovarian suppression via Lupron which may provide temporary relief of significantly heavy bleeding, though with a substantial side effect profile, as well as endometrial ablation and/or hysterectomy. She has had a Mirena IUD for the past 4.5 years, and we reviewed I am not familiar with bleeding that seems to be prompted by dietary changes (such as high-protein effect). We discussed that the progestin effect of a Mirena may subtly decrease for some women after 5 years of use, and malpositioning ofthe device can lead to breakthrough bleeding, as well. The decision was made today to remove her current IUD, perform an endometrial biopsy, and replace the IUD with a new device. A pap was also collected today given her abnormal bleeding, as well as need for cervical cancer screening. She will returnin 6 weeks to review bleeding profile. If continued abnormal bleeding and benign endometrial biopsy,will plan for pelvic ultrasound to evaluate for structural lesions within the uterus, and discussionof either hysteroscopy D&C or further medical management options. The patient understands that she will receive written or verbal confirmation of results and should not assume a normal study if no communication is made. The patient was instructed to call my office toobtain results from myself or my staff if she has not had follow-up w/ in 3-4 weeks time. All questions were answered to the best of my ability. Anila Hernández MD Anila Hernández MD - 12/01/2019 9:20 AM CDT Estab Patient Visit Procedure Note Date of Procedure: 12/01/19 Surgeon: Anila Hernández MD Preoperative diagnosis: Problem List Items Addressed This Visit Digestive Class 3 severe obesity in adult (HCC) Genitourinary Abnormal uterine bleeding Relevant Orders Pap Smear HPV High Risk DNA Detection with Genotyping Endometrial biopsy Menorrhagia with irregular cycle - Primary Relevant Medications levonorgestrel (MIRENA) 20 MCG/24HR IUD 20 mcg (Completed) (Start on 12/01/2019 11:00 AM) Other Relevant Orders Endometrial biopsy Other Visit Diagnoses S/P bariatric surgery Screening for cervical cancer Relevant Orders Pap Smear HPV High Risk DNA Detection with Genotyping Procedure: 1. Levonorgestrel-releasing intrauterine contraceptive system, 52mg, 5 year duration Mirena removal 2. Endometrial biopsy 3. Levonorgestrel-releasing intrauterine contraceptive system, 52mg, 5 year duration Mirena replacement Postoperative diagnosis: Problem List Items Addressed This Visit Digestive Class 3 severe obesity in adult (HCC) Genitourinary Abnormal uterine bleeding Relevant Orders Pap Smear HPV High Risk DNA Detection with Genotyping Endometrial biopsy Menorrhagia with irregular cycle - Primary Relevant Medications levonorgestrel (MIRENA) 20 MCG/24HR IUD 20 mcg (Completed) (Start on 12/01/2019 11:00 AM) Other Relevant Orders Endometrial biopsy Other Visit Diagnoses S/P bariatric surgery Screening for cervical cancer Relevant Orders Pap Smear HPV High Risk DNA Detection with Genotyping Narrative: Informed consent was obtained from patient. We discussed the necessity of other members of the healthcare team, both male and female, participating in the procedure if needed. We also discussed risks benefits and alternatives including uterine perforation. All questions answered and both verbal and written consent given. Patient was assessed for and instructed on pre-procedure and post procedure pain. Patient instructed she may experience mild uterine cramping postprocedure. Discussed analgesia and its use. Postprocedure warning signs reviewed with patient. She stated her understanding and desire to proceed. IUD removal: Bimanual exam completed, see exam documented on separate note. Speculum placed. Pap collected. Mirena IUD strings were visualized, grasped with ring forceps, and IUD removed without difficulty, shown to patient and discarded. Endometrial Biopsy: Cervix prepped with Betadine ??3. Tenaculum was then placed on anterior aspect of the cervix. Endometrial pipelle was inserted through the cervical os to the uterine fundus, which sounded to approximately 8cm. Two passes were used to collect a moderate amount of endometrial tissue, sent to pathology. IUD Placement: Attention then turned to IUD placement. Uterus felt to be anteverted on previous bimanual exam. Uterus sounded to 8cm via aforementioned pipelle. Intrauterine device placed without difficulties per standard procedure, ensuring placement to the level of the uterine fundus. Intrauterine device strings were cut approximately 2 cm from the external cervical os. Lot number: See medical record. Removal date: 2024. Patient education: Ready to learn, no apparent learning barriers were identified. Explained diagnosis and treatment plans; patient expressed understanding of the content. Return appointment for intrauterine device surveillance was made in 6 weeks. Anila Hernández MD documented in this encounter Plan of Treatment Not on filedocumented as of this encounter Procedures Procedure Name Priority Date/Time Associated Diagnosis Comme nts HPV HIGH RISK DNA Routine 12/01/2019 10:11 Abnormal uterine Re sults for this DETECTION WITH AM CDT bleeding procedure are in GENOTYPING Screening for the results cervical cancer section. PATHOLOGY Routine 12/01/2019 10:11 Menorrhagia with Results for this AM CDT irregular cycle procedure are in Abnormal uterine the results bleeding section. PAP TEST Routine 12/01/2019 10:11 Abnormal uterine Results for this AM CDT bleeding procedure are in Screening for the results cervical cancer section. documented in this encounter Results Endometrial biopsy (12/01/2019 10:11 AM CDT) Specimen (Source) Anatomical Collection Method Collection Time Re ceived Time Location / / Volume Laterality Endometrial biopsy 12/01/2019 10:11 11/30 1:46 AM CDT PM CDT Narrative [facility] - 11/06 1:21 PM CDT ? [facility] ? [address] ?[place] [address] ? Patient: ?MIRELLA JOHNSON ?Procedure: ? 12/01/2019 10:11 /Age/Sex: ??1975, 44 Y, F ?Received: ?12/01/2019 13:46 ? Accession #: ?? [id number] Billing: ?[id number] ? Patient Location: [facility] SUPER[employer]OR Clinc Ordered by: ?? ANILA HERNÁNDEZ MD ? Attending: ? ANILA HERNÁNDEZ MD ?S URGICAL PATHOLOGY FINAL REPORT SPECIMEN: (A) ENDOMETRIAL BIOPSY CLINICAL INFORMATION: Abnormal uterine bleeding despite IUD pl acement. GROSS DESCRIPTION: The specimen is labeled endometrial biop sy. ??The labels match on the requisition form and bottle. ??Received in formalin are multiple pink, red fragments of tissue measuring 2.5 x 2.0 x 0.3 cm in aggregat e. ??The specimen is completely submitted in block A1. Artem ROCKWELL, (ASCP)cm DIAGNOSIS: Endometrium, biopsy: -Inactive endometrial glands and stroma with exogenous hormone effect. -Neither hyperplasia nor neoplasia ident ified. This case received prospective peer revi ew with concurrence. <Sign Out DrDevyn Signature> CHINO ADAMS, (Electronically Signed) Reported: ??12/03/2019 ??13:21 ? Page 1 of 1 Anila Hernández MD LAB PATHOLOGY ORDERABLES Performing Organization Address City/State/ZIP Code Phon e Number [facility] [address] [place] [address] HPV High Risk DNA Detection with Genotyping (12/01/2019 10:11 AM CDT) [facility] Method Time Signature Source Cervical 12/03/2019 [facility] 5:18 PM CDT LABORATORIES HPV Type 16 Negative Negative 12/03/2019 [facility] 5:18 PM CDT LABORATORIES HPV Type 18 Negative Negative 12/03/2019 [facility] 5:18 PM CDT LABORATORIES HPV non-Type Negative Negative 12/03/2019 [facility] 16 or 18 5:18 PM CDT LABORATORIES Comment: The following Other High Risk HPV types were not detected: 31, 33, 35, 39, 45, 51, 52, 56, 58, 59, 66, and 68 ADDITIONAL INFORMATIO N This test has been modified from the man ufacturer's instructions. Its performance characteri stics were determined by [facility] in a manner co nsistent with CLIA requirements. This test has not been leobardo ared or approved by the U.S. Food and Drug Administration. Test Performed by: [facility] - [address] [address] [employer] Administrator: Anson Powell M.D. Ph. D.; CLIA# [id number] Specimen (Source) Anatomical Collection Method Collection Time Re ceived Time Location / / Volume Laterality Pap collection 12/01/2019 10:11 0 1:35 bottle AM CDT PM CDT Anila Hernández MD LAB CYTOLOGY ORDERABLES Performing Organization Address City/State/ZIP Code Phon e Number [facility] see result attachment for specific address Pap Smear (12/01/2019 10:11 AM CDT) Specimen Anatomical Collection Method Collection Time Receive d Time (Source) Location / / Volume Laterality Sure [facility] PAP, 12/01/2019 10:11 0 3:11 screen AM CDT PM CDT Narrative [facility] - 11/06 3:57 PM CDT ? [facility] ? [address] ?[place] [address] ? Patient: ?MIRELLA JOHNSON ? Procedure: ? 12/01/2019 10:11 /Age/Sex: ??1975, 44 Y, F ? Received: ?12/01/2019 15:11 ?Accession #: ?? [id number] Billing: ?[id number] ?Patient Location: [facility] Ordered by: ?? ANILA HERNÁNDEZ MD ?Attending: ? ANILA HERNÁNDEZ MD ? [employer] CYTOLOGY FINAL REPORT SPECIMEN: (A) SURE PATH PAP, SCREEN SPECIMEN DESCRIPTION: Cervical Received bloody specimen in [facility] via l. CLINICAL INFORMATION: LMP: 11/15/2019 ?? Prev.normal: 2016 ??SPECIMEN ADEQUACY: Satisfactory for Evaluation. ??Endocervi eda cells/transformation zone component present. GENERAL CATEGORIZATION: Negative for Intraepithelial Lesion or M alignancy PAP Test Disclaimer Cervical cytology is a screening test pr imarily for squamous cancer and its precursors and has associated false-nega tive and false-positive results. Regular sampling and follow-up of unexplained cl inical signs and symptoms are recommended to minimize the impact of false negative and false positive results. Screened By: Signed By: ARJUN PALENCIA(ASCP) <Sign Out Dr. Richardson> Reported: ??12/04/2019 ? Page 1 of 1 Anila Hernández MD LAB CYTOLOGY ORDERABLES Performing Organization Address City/State/ZIP Code Phon e Number [facility] [address] [place] [address] documented in this encounter Visit Diagnoses Diagnosis Menorrhagia with irregular cycle - Prima ry Abnormal uterine bleeding Unspecified disorder of menstruation and other abnormal bleeding from female genital tract Class 3 severe obesity without serious c omorbidity with body mass index (BMI) of 40.0 to 44.9 in adult, unspecified obesity ty pe (HCC) S/P bariatric surgery Screening for cervical cancer Screening for malignant neoplasm of the cervix documented in this encounter Administered Medications Inactive Administered Medications - up to 3 most recent administrations Medication Order MAR Action Action Date Dose Rate Site levonorgestrel (MIRENA) 20 Given 12/01/2019 10:14 AM CDT 20 mcg MCG/24HR IUD 20 mcg 20 mcg (1 Intra Uterine Device), Intrauterine, Once, On 12/01/19 at 1100, For 1 dose, NIOSH Class 2: ? ? Unit dose tablet: wear single pair gloves (ASTM). ? ? Intrauterine device: wear double pair gloves (ASTM). ? ? Topical: wear double pair gloves (ASTM), chemo gown. If there is potential for inhalation, respiratory protection is recommended. ? ? Oral solution/feeding tube administration/potential for vomit or spit up: wear double gloves (ASTM), chemo gown, mask, eye protection. ? ? Injection solution: wear double gloves (ASTM), mask, eye protection. Wear chemo gown if liquid could splash. ? ? Avoid contact during /while nursing. documented in this encounter Care Teams Customer Sales Specialist Relationship Specialty Start Date End Date None, Pcp PCP - General Professor Of Kinesiology 12/01/19 02/25/[address] [place] [place] [address] documented as of this encounter
--- OUTSIDE RECORDS SUMMARY | 2021-12-12 09:57 | XMS_ITS | Encounter Summary ---
:[address] [facility] Address [address] [place] [address] Care Team Providers Name Role Phone Katty Rojas APRN, HERBERT Primary Care Provider [phone] Reason for Visit Reason Onset Date Comments prescription questions 05/23/2018 Encounter Details Date Type Department Care Team Description 05/23/2018 Telephone Katty Chao, prescription questions [address] [place], [place] [address] [facility] [address] [place] [address] Social History Tobacco Use Types Packs/Day Years Used Date Never Assessed Alcohol Habits Answer Date Recorded How often do you have a drink containing alcohol? Never 02/13/2020 How many drinks containing alcohol do you have on a typical Not asked day when you are drinking? How often do you have six or more drinks on one occasion? 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 prescribed Wellbutrin extended release 300 mg capsule daily, quantity 90 capsules,for 90 days with 3 refills. Telephone Encounter - Shannan Rodrigues MA - 05/23/2018 4:09 PM CDT Venlafaxine Adriana states patient usually takes 2 tab a day not one. If 2 times a day med will need aPA and Adriana will send it over. Please advise if you would like the patient to take once a day or twice a day. Telephone Encounter - Odessa Sutherland - 05/23/2018 3:59 PM CDT Adriana would like to speak with a nurse regarding instructions on an Rx. documented in this encounter Plan of Treatment Not on filedocumented as of this encounter Visit Diagnoses Not on filedocumented in this encounter Care Teams Product Management Specialist Relationship Specialty Start Date End Date Katty Rojas APRN, GARMENT MANUFACTURER PCP - General 09/11/17 10/13/19 [address] [facility] [place] [address] documented as of this encounter
--- OUTSIDE RECORDS SUMMARY | 2021-12-12 09:57 | XMS_ITS | Encounter Summary ---
:1975 Author Organization [facility] Address [address] [place] [address] Care Team Providers Name Role Phone Katty Rojas APRN, SUPERVISOR ASBESTOS REMOVAL Primary Care Provider [phone] Reason for Visit Reason Comments Follow-up Medication visit Encounter Details Date Type Department Care Team Description 02/13/2019 Office Visit [place] Essential hypertension (Prim foreign Dx); [address] [place], [place] Anxiety; [place] [address] Restless legs; [address] [place], [place] Hyperlipidemia, unspecified hyperlipidemia type; [phone] Reactive airway disease without complica tion, unspecified asthma severity, unspecified whether persistent; [phone] S/P laparoscopi c sleeve gastrectomy; (Work) Morbid obesity (HCC) Social History Tobacco Use Types Packs/Day Years [...] at Date Recorded Female 04/13/2021 4:03 PM TWISTING OPERATOR documented as of this encounter Last Filed Vital Signs Vital Sign Reading Time Taken Comments Blood Pressure 110/82 02/13/2019 3:42 PM TWISTING OPERATOR Pulse 97 02/13/2019 3:42 PM TWISTING OPERATOR Temperature 35.9 ??C (96.7 ??F) 02/13/2019 3:42 PM TWISTING OPERATOR Respiratory Rate 18 02/13/2019 3:42 PM TWISTING OPERATOR Oxygen Saturation 94% 02/13/2019 3:42 PM TWISTING OPERATOR Inhaled Oxygen Concentration - - Weight 110 kg (242 lb 8.1 oz) 02/13/2019 3:42 PM TWISTING OPERATOR Height 160 cm (5' 3) 02/13/2019 3:42 PM TWISTING OPERATOR Body Mass Index 42.96 02/13/2019 3:42 PM TWISTING OPERATOR documented in this encounter Patient Instructions Patient InstructionsChjoshua Rojas APRN, CNP - 02/13/2019 3:40 PM TWISTING OPERATOR Will call with the lab results No medication changes TING OPERATOR documented in this encounter Progress Notes Katty Rojas APRN, CNP - 02/13/2019 3:40 PM CST Estab Patient Visit Subjective Patient ID: Mirella Edwards is a 43 y.o. female presenting for the following concerns. Chief Complaint Patient presents with ??? Follow-up Medication visit HPI: SUBJECTIVE: The patient is a pleasant 43-year-old female presenting ambulatory to the clinical setting today for medication review. The patient's past medical history includes restless legs, allergic rhinitis, hyperlipidemia, hypertension, reactive airway disease likely induced from seasonal allergies, degenerative disk disease, depression, general anxiety disorder, PTSD, agoraphobic, obesity status post gastric bypass sleeve, and seasonal allergies. The patient is requesting to have labs completed for her gastric bypass sleeve to be faxed to the bariatric center. The patient has hyperlipidemia, was previously on Lipitor which she did not tolerate, and has since discontinued. The patient is not on medication for her lumbar degenerative disk disease. The patient reports she fell 8 years ago, fracturing L4-L5, exploding a disc on February 22, and did not have surgery until June 03. The patient has a history of hypertension, was previously on hydrochlorothiazide and lisinopril, which were discontinued, after she started experiencing dizziness and lightheadedness, secondary to weight loss from her gastric bypass sleeve. The patient was started on verapamil 80 mg daily for migraine headache prevention in January,, which has been effective in controlling her migraine headaches, as she has not had any headaches since started this medication. The patienthas general anxiety disorder, PTSD, agoraphobia, and to a lesser extent depression. The patient is currently on Effexor 150 mg extended release tablet, 1 tablet twice daily; twice daily because of her gastric bypass sleeve, which has been effective in controlling her symptoms to a certain extent. The patient reports she is able to do things with family and friends, and her family supports her. She does not want to change medication at this point. The patient filled out a PHQ-9 and JUAREZ-7 form today. The patient takes Requip 0.25 mg tablets, 1-2 tablets at bedtime as needed for restless legs, which certainly is controlling her symptoms. She reports she does not take the medication, she does not sleep. The patient had a Mirena IUD placed in 2015 for perimenopausal symptoms, as she had a tubal ligation for contraception purposes. The patient had a normal Pap smear on 05/05/15, with HPV co-testing, and will be due in 2020. The patient does not take medication for her seasonal allergies, as the medications are ineffective and cause sedation. The patient reports her seasonal allergies typically flare in the spring and fall. The patient feels her reactive airway disease flares, when her allergy symptoms flare, and she uses the albuterol inhaler with good control of those symptoms. REVIEW OF SYSTEMS: MANAGER HOUSE: See HPI. The patient had the Mirena IUD placed in 2015, at which time she had a normal Pap smear with HPV co-testing, which will be due in 2020. She did not have a menses for 6 months following the IUD placement, but is starting to develop an irregular menstrual pattern. CARDIOVASCULAR: See HPI. The patient has hyperlipidemia and was previously on atorvastatin 20 mg daily. The patient has a history of hypertension, was on medication for period of time, which was discontinued after losing weight from her gastric bypass. RESPIRATORY: See HPI. The patient feels her reactive airway disease flares, when her allergy symptoms flare, and she uses the albuterol inhaler with good control of those symptoms. MUSCULOSKELETAL: See HPI. The patient has degenerative disk disease in her lower back and is not currently on pain medication. NEUROLOGICAL: See HPI. The patient has a history of restless leg syndrome, is on Requip as needed, and feels her symptoms are controlled at present and without medication. The patient has migraine headaches controlled with verapamil 80 mg daily. PSYCHIATRIC: See HPI. The patient has a history of mild depression, general anxiety disorder, PTSD, and agoraphobia. She is currently on Effexor extended release 150 mg twice daily which helps decreaseher anxiety. The following portions of the patient's chart were reviewed in this encounter and updated as appropriate: Tobacco Allergies Meds Problems Med Hx Surg Hx Fam Hx Soc Hx Current Outpatient Medications: ??? levonorgestrel (MIRENA) 20 MCG/24HR IUD, 1 Device by Intrauterine route, Disp: , Rfl: ??? rOPINIRole (REQUIP) 0.5 MG tablet, Take 1 tablet (0.5 mg total) by mouth 1 (one) time each day, Disp: 90 tablet, Rfl: 3 ??? verapamil (CALAN) 80 MG tablet, Take 1 tablet (80 mg total) by mouth 1 (one) time each day, Disp: 90 tablet, Rfl: 3 ??? albuterol HFA (PROAIR HFA) 108 (90 Base) MCG/ACT inhaler, Inhale 2 puffs every 4 (four) hours ifneeded for wheezing or shortness of breath, Disp: 8.5 g, Rfl: 11 ??? venlafaxine XR (EFFEXOR-XR) 150 MG 24 hr capsule, Take 1 capsule (150 mg total) by mouth 2 (two)times a day Take with food., Disp: 180 capsule, Rfl: 3 Objective Visit Vitals BP 110/82 (BP Location: Left arm, Patient Position: Sitting) Pulse 97 Temp (!) 35.9 ??C (96.7 ??F) (Temporal) Resp 18 Ht 1.6 m (5' 3) Wt 110 kg (242 lb 8.1 oz) SpO2 94% BMI 42.96 kg/m?? Smoking Status Never Smoker BSA 2.21 m?? GENERAL: The patient is alert, orientated, and in no apparent distress. RESPIRATORY: Lungs are clear bilaterally. No wheezing. CARDIOVASCULAR: Normal heart rate and rhythm. No murmur. PSYCHIATRIC: The patient makes eye contact. She is dressed nicely. She is insightful and is able to expresses her thoughts and feelings. The patient???s JUAREZ-7 score was 9 and PHQ-9 score was 8 today. DIAGNOSTICS: Lipid panel, insulin, vitamin B12, vitamin B6, vitamin A, thiamine, iron, folic acid, ferritin, vitamin D, comprehensive metabolic panel, and CBC with differential. Lab on 02/13/2019 Component Date Value Ref Range Status ??? Vitamin D, Total 02/13/2019 37.9 ng/mL Final ??? Ferritin 02/13/2019 42 6 - 137 ng/mL Final ? ? Folate 02/13/2019 11.6 >=2.8 ng/mL Final ??? Iron (FE) 02/13/2019 136 37 - 170 mcg/dL Final ??? Thiamin (Vitamin B1) 02/13/2019 119 70 - 180 nmol/L Final ??? Free Retinol (Vit A) 02/13/2019 54.8 32.5 - 78.0 mcg/dL Final ??? Pyridoxal 5-Phosphate 02/13/2019 3* 5 - 50 mcg/L Final ??? Insulin 02/13/2019 8.2 2.6 - 24.9 mcIU/mL Final ??? Cholesterol 02/13/2019 276* 0 - 199 mg/dL Final ??? Triglycerides 02/13/2019 74 0 - 149 mg/dL Final ??? HDL 02/13/2019 58 40 - 60 mg/dL Final ??? LDL Calculated 02/13/2019 203* 0 - 99 mg/dL Final ??? Fasting? 02/13/2019 Yes Final ??? Total Protein 02/13/2019 6.9 6.3 - 8.2 g/dL Final ??? Albumin, Serum 02/13/2019 4.0 3.5 - 5.0 g/dL Final ? ? Total Bilirubin 02/13/2019 <0.7 0.1 - 1.0 mg/dL Final ??? AST 02/13/2019 20 8 - 43 U/L Final ??? Alkaline Phosphatase 02/13/2019 83 38 - 128 U/L Final ??? ALT (SGPT) 02/13/2019 27 0 - 34 U/L Final ??? Sodium 02/13/2019 139 135 - 145 mEq/L Final ??? Potassium 02/13/2019 3.5 3.5 - 5.1 mEq/L Final ??? Chloride 02/13/2019 100 98 - 107 mEq/L Final ??? CO2 02/13/2019 30* 22 - 29 mmol/L Final ??? BUN 02/13/2019 16 5 - 25 mg/dL Final ??? Creatinine 02/13/2019 0.6 0.4 - 1.2 mg/dL Final ??? Glucose 02/13/2019 90 70 - 100 mg/dL Final ??? Calcium, Total,S 02/13/2019 9.7 8.4 - 10.2 mg/dL Final ??? WBC 02/13/2019 6.9 3.5 - 10.5 K/uL Final ??? RBC 02/13/2019 4.43 3.90 - 5.00 M/uL Final ??? Hemoglobin 02/13/2019 13.4 12.0 - 15.5 g/dL Final ??? Hematocrit 02/13/2019 41.0 35.0 - 44.0 % Final ??? Platelets 02/13/2019 397 150 - 450 K/uL Final ??? MCV 02/13/2019 92.6 81.6 - 98.3 fL Final ??? MCH 02/13/2019 30.2 26.0 - 32.0 pg Final ??? MCHC 02/13/2019 32.7 32.0 - 36.0 g/dL Final ??? RDW 02/13/2019 13.2 11.9 - 15.5 % Final ??? Lymphocytes % 02/13/2019 32.7 18.0 - 45.0 % Final ??? Mid-size Cells 02/13/2019 10.0 3.3 - 10.1 % Final ??? Granulocytes/Neutrophils 02/13/2019 57.3 45.8 - 73.7 % Final ??? Lymphocytes Absolute 02/13/2019 2.3 0.9 - 2.9 K/uL Final ??? MIDS Absolute 02/13/2019 0.7 0.2 - 0.8 K/uL Final ??? Granulocytes/Neutrophils Absolute 02/13/2019 3.9 2.1 - 8.7 K/uL Final ??? Vitamin B-12 02/13/2019 477 239 - 931 pg/mL Final ? ? GFR 02/13/2019 >60 Final ? ? GFR 02/13/2019 >60 Final Assessment/Plan Mirella was seen today for follow-up. Diagnoses and all orders for this visit: Essential hypertension (Primary) - verapamil (CALAN) 80 MG tablet; Take 1 tablet (80 mg total) by mouth 1 (one) time each day Anxiety - venlafaxine XR (EFFEXOR-XR) 150 MG 24 hr capsule; Take 1 capsule (150 mg total) by mouth 2 (two) times a day Take with food. Restless legs - rOPINIRole (REQUIP) 0.5 MG tablet; Take 1 tablet (0.5 mg total) by mouth 1 (one) time each day Hyperlipidemia, unspecified hyperlipidemia type - Lipid panel; Future Reactive airway disease without complication, unspecified asthma severity, unspecified whether persistent - albuterol HFA (PROAIR HFA) 108 (90 Base) MCG/ACT inhaler; Inhale 2 puffs every 4 (four) hours if needed for wheezing or shortness of breath S/P laparoscopic sleeve gastrectomy - Vitamin B12; Future - CBC Branch Off w/Diff; Future - Comprehensive metabolic panel; Future - Lipid panel; Future - Insulin, serum; Future - Vitamin B6; Future - Vitamin A; Future - Vitamin B1, whole blood; Future - Iron level; Future - Folate; Future - Ferritin; Future - Vitamin D, Total; Future Morbid obesity (HCC) - Vitamin B12; Future - CBC Branch Off w/Diff; Future - Comprehensive metabolic panel; Future - Lipid panel; Future - Insulin, serum; Future - Vitamin B6; Future - Vitamin A; Future - Vitamin B1, whole blood; Future - Iron level; Future - Folate; Future - Ferritin; Future - Vitamin D, Total; Future Discussed the plan of care with the patient. Renewed verapamil 80 mg daily x 1 year for migraine headache prevention; Ventolin inhaler for her history of reactive disease likely seasonal allergy induced; Requip 0.5 mg tablet, 1 tablet at bedtime for her restless leg syndrome; and Effexor 150 mg extended release tablet, 1 twice daily, as her gastric bypass team recommended twice daily dosing. The patient is not on medication for her hyperlipidemia, will review her lipid panel, and make recommendations. The patient's blood pressure is well controlled without medication and she will continue to monitor. The patient had her labs completed for her morbid obesity and s/p laparoscopic sleeve gastrectomy which will be forwarded to the bariatric center where she receives her cares. The patient will be notified of her lab results. The patient agrees and understands this plan of care. Katty Rojas, LUCAS, SUPERVISOR ASBESTOS REMOVAL TING OPERATOR documented in this encounter Plan of Treatment Not on filedocumented as of this encounter Results Vitamin D, Total (02/13/2019 4:25 PM TWISTING OPERATOR) athologist Signature Vitamin D, 37.9 ng/mL 02/14/2019 [facility] Total 1:17 PM TWISTING OPERATOR [facility] Comment: Deficient ?<20 ? ng/mL Insufficient ? 20-<30 ??ng/mL Sufficient ? 30-100 ??ng/mL Vitamin D2/D3 fractionation is recommend ed at the discretion of the clinician if Total Vitamin D is w ithin deficient or insufficient range. Specimen Anatomical Collection Method Collection Time Receive d Time (Source) Location / / Volume Laterality Blood 02/13/2019 4:25 PM 0 TWISTING OPERATOR 12:16 PM TWISTING OPERATOR Katty Rojas APRN, CNP LAB BLOOD ORDERABLES Performing Organization Address City/State/ZIP Code Phon e Number [facility] [address] [place] [id number] Ferritin (02/13/2019 4:25 PM TWISTING OPERATOR) athologist Signature Ferritin 42 6 - 137 02/14/2019 [facility] ng/mL 2:10 PM TWISTING OPERATOR [facility] Comment: The results from this or any other diagn ostic test should be used and interpreted only in the context of the overall clinical picture. Biotin levels in serum remain elevated f or up to 24 hours after oral or intravenous biotin adminis tration and may interfere with this assay to produce unr eliable results. Heterophilic antibodies in serum or plas ma samples may cause interference in immunoassays. ??Exposure to animal antigens, either in the environment or as part of treatment or imaging procedures, may have circulating anti-an imal antibodies present. These antibodies may interfere with the assay reagents to produce unreliable results. ??Results which are inconsistent with clinical observations indicate the need for additional testing. Specimen Anatomical Collection Method Collection Time Receive d Time (Source) Location / / Volume Laterality Blood (Blood, 02/13/2019 4:25 PM 02/14/19 20 Venous) TWISTING OPERATOR 12:28 PM TWISTING OPERATOR Katty Rojas APRN, CNP LAB BLOOD ORDERABLES Performing Organization Address [facility] Phon e Number [facility] [address] [place] [phone] Folate (02/13/2019 4:25 PM TWISTING OPERATOR) athologist Signature Folate 11.6 >=2.8 ng/mL 02/14/2019 [facility] 2:25 PM TWISTING OPERATOR [facility] Comment: The results from this or any other diagn ostic test should be used and interpreted only in the context of the overall clinical picture. Biotin levels in serum remain elevated f or up to 24 hours after oral or intravenous biotin adminis tration and may interfere with this assay to produce unr eliable results. Exposure to animal antigens, either in t he environment or as part of treatment or imaging procedur es, may have circulating anti-animal antibodies prese nt. These antibodies may interfere with the assay reagents to produce unreliable results. Specimen Anatomical Collection Method Collection Time Receive d Time (Source) Location / / Volume Laterality Blood (Blood, 02/13/2019 4:25 PM 02/14/19 20 Venous) TWISTING OPERATOR 12:28 PM TWISTING OPERATOR Katty Rojas APRN, CNP LAB BLOOD ORDERABLES Performing Organization Address [facility] Phon e Number [facility] [address] [place] [phone] Iron level (02/13/2019 4:25 PM TWISTING OPERATOR) athologist [facility] Iron (FE) 136 37 - 170 02/14/2019 [facility] mcg/dL 1:17 PM TWISTING OPERATOR [facility] Specimen Anatomical Collection Method Collection Time Receive d Time (Source) Location / / Volume Laterality Blood (Blood, 02/13/2019 4:25 PM 02/14/19 20 Venous) TWISTING OPERATOR 12:16 PM TWISTING OPERATOR Katty Rojas APRN, CNP LAB BLOOD ORDERABLES Performing Organization Address [facility] Phon e Number [facility] [address] [place] [phone] Vitamin B1, whole blood (02/13/2019 4:25 PM TWISTING OPERATOR) athologist Signature Thiamin 119 70 - 180 02/18/2019 [facility] (Vitamin B1) nmol/L 12:53 PM TWISTING OPERATOR LABORATORIES Comment: ADDITIONAL INFORMATIO N This test was developed and its performa nce characteristics determined by [facility] in a manner co nsistent with CLIA requirements. This test has not been leobardo ared or approved by the U.S. Food and Drug Administration. Test Performed by: [facility] [employer] [address] [place] [address] [employer] Supervisor: Anson Powell M.D. Ph. D.; CLIA# [id number] Specimen Anatomical Collection Method Collection Time Receive d Time (Source) Location / / Volume Laterality Blood (Blood, 02/13/2019 4:25 PM 02/14/19 20 Venous) TWISTING OPERATOR 12:54 PM TWISTING OPERATOR [facility] - 02/18/2019 1 2:53 PM TWISTING OPERATOR Called to CALL CANCELLED - RESULTS FAXED , , 07:32 02/18/2019 TLR01 Katty Rojas APRN, CNP LAB BLOOD ORDERABLES Performing Organization Address City/State/ZIP Code Phon e Number [facility] see result attachment for specific address Vitamin A (02/13/2019 4:25 PM TWISTING OPERATOR) athologist Signature Free Retinol 54.8 32.5 - 02/18/2019 [facility] (Vit A) 78.0 8:51 AM TWISTING OPERATOR LABORATORIES mcg/dL Comment: ADDITIONAL INFORMATIO N This test was developed and its performa nce characteristics determined by [facility] in a manner co nsistent with CLIA requirements. This test has not been leobardo ared or approved by the U.S. Food and Drug Administration. Test Performed by: [facility] [employer] [address] [place] [address]62 [employer] Supervisor: Anson Powell M.D. Ph. D.; CLIA# [id number] Specimen Anatomical Collection Method Collection Time Receive d Time (Source) Location / / Volume Laterality Blood (Blood, 02/13/2019 4:25 PM 02/14/19 20 Venous) TWISTING OPERATOR 12:54 PM TWISTING OPERATOR Narrative [facility] - 02/18/2019 8 :51 AM TWISTING OPERATOR Called to CALL CANCELLED - RESULTS FAXED , , 07:32 02/18/2019 TLR01 Katty Rojas APRN, CNP LAB BLOOD ORDERABLES Performing Organization Address City/[facility]/ZIP Code Phon e Number [facility] see result attachment for specific address (ABNORMAL) Vitamin B6 (02/13/2019 4:25 PM TWISTING OPERATOR) [facility] Pyridoxal 3 (L) 5 - 50 02/18/2019 [facility] 5-Phosphate mcg/L 1:15 PM TWISTING OPERATOR LABORATORIES Comment: ADDITIONAL INFORMATIO N This test was developed and its performa nce characteristics determined by [facility] in a manner co nsistent with CLIA requirements. This test has not been leobardo ared or approved by the U.S. Food and Drug Administration. Test Performed by: [facility] [address] [place] [address] [employer] Supervisor: Anson Powell M.D. Ph. D.; CLIA# [id number] Specimen Anatomical Collection Method Collection Time Receive d Time (Source) Location / / Volume Laterality Blood (Blood, 02/13/2019 4:25 PM 02/14/19 20 Venous) TWISTING OPERATOR 12:54 PM TWISTING OPERATOR Narrative [facility] - 02/18/2019 1 :15 PM TWISTING OPERATOR Called to CALL CANCELLED - RESULTS FAXED , , 07:32 02/18/2019 TLR01 Katty Rojas APRN, CNP LAB BLOOD ORDERABLES Performing Organization Address City/[facility]/ZIP [facility] [place] [place] Phon e Number [facility] see result attachment for specific address Insulin, serum (02/13/2019 4:25 PM TWISTING OPERATOR) athologist Signature Insulin 8.2 2.6 - 24.9 02/14/2019 [facility] mcIU/mL 7:46 PM TWISTING OPERATOR LABORATORIES Comment: Test Performed by: [facility] [address] [place], [place] [address] [employer] Supervisor: Anson Powell M.D. Ph. D.; IA# [id number] Specimen Anatomical Collection Method Collection Time Receive d Time (Source) Location / / Volume Laterality Blood (Blood, 02/13/2019 4:25 PM 02/14/19 20 Venous) TWISTING OPERATOR 12:54 PM TWISTING OPERATOR Katty Rojas TELEVISION PRODUCTION ASSISTANT, SUPERVISOR ASBESTOS REMOVAL LAB BLOOD ORDERABLES Performing Organization Address City/State/ZIP Code Phon e Number [facility] see result attachment for specific address (ABNORMAL) Lipid panel (02/13/2019 4:25 PM TWISTING OPERATOR) athologist [facility] Cholesterol 276 (A) 0 - 199 02/14/2019 [facility] mg/dL 1:20 PM [facility] Comment: Recommended by National Cholesterol Education Program (ATP III) -------- Cholesterol Ranges -------- <200 ? Desirable 200-239 ? Borderline high >=240 ? High Triglycerides 74 0 - 149 mg/dL 02/14/2019 1:20 PM [facility] Comment: -------- TRIG Ranges -------- <150 ?Normal 150-199 ? Borderline high 200-499 ? High >=500 ? Very high HDL 58 40 - 60 mg/dL 02/14/2019 1:20 PM [facility] Comment: -------- HDL Ranges -------- <40 ?Low 40-59 ?Normal >=60 ? Optimal LDL Calculated 203 (A) 0 - 99 mg/dL 02/14/2019 1:20 PM [facility] Comment: -------- LDL Ranges -------- <100 ? Optimal 100-129 ?Near optimal/above op timal 130-159 ?Borderline high 160-189 ?High >=190 ?Very high Fasting? Yes 02/13/2019 4:32 PM [facility] Specimen Anatomical Collection Method Collection Time Receive d Time (Source) Location / / Volume Laterality Blood 02/13/2019 4:25 PM 0 TWISTING OPERATOR 12:16 PM TWISTING OPERATOR Katty Rojas APRN, SUPERVISOR ASBESTOS REMOVAL LAB BLOOD ORDERABLES Performing Organization Address City/State/ZIP Code Phon e Number [facility] [address] [place] [address] (ABNORMAL) Comprehensive metabolic panel (02/13/2019 4:25 PM TWISTING OPERATOR) Analysis Performed At Patho logist Time Signature Total Protein 6.9 6.3 - 8.2 02/14/2019 [facility] g/dL 1:20 PM [facility] Albumin, Serum 4.0 3.5 - 5.0 02/14/2019 [facility] g/dL 1:20 PM [facility] Total Bilirubin <0.7 0.1 - 1.0 02/14/2019 [facility] mg/dL 1:20 PM [facility] AST 20 8 - 43 U/L 02/14/2019 [facility] 1:20 PM [facility] Alkaline 83 38 - 128 02/14/2019 [facility] Phosphatase U/L 1:20 PM [facility] ALT (SGPT) 27 0 - 34 U/L 02/14/2019 [facility] 1:20 PM [facility] Sodium 139 135 - 145 02/14/2019 [facility] mEq/L 1:20 PM [facility] Potassium 3.5 3.5 - 5.1 02/14/2019 [facility] mEq/L 1:20 PM [facility] Chloride 100 98 - 107 02/14/2019 [facility] mEq/L 1:20 PM [facility] CO2 30 (H) 22 - 29 02/14/2019 [facility] mmol/L 1:20 PM [facility] BUN 16 5 - 25 02/14/2019 [facility] mg/dL 1:20 PM [facility] Creatinine 0.6 0.4 - 1.2 02/14/2019 [facility] mg/dL 1:20 PM [facility] Glucose 90 70 - 100 02/14/2019 [facility] mg/dL 1:20 PM [facility] Calcium, Total,S 9.7 8.4 - 10.2 02/14/2019 [facility] mg/dL 1:20 PM [facility] Specimen Anatomical Collection Method Collection Time Receive d Time (Source) Location / / Volume Laterality Blood 02/13/2019 4:25 PM 0 TWISTING OPERATOR 12:16 PM TWISTING OPERATOR Katty Rojas APRN, CNP LAB BLOOD ORDERABLES Performing Organization Address City/State/ZIP Code Phon e Number [facility] [address] [place] [address] CBC Branch Off w/Diff (02/13/2019 4:25 PM TWISTING OPERATOR) P athologist Signature WBC 6.9 3.5 - 10.5 02/13/2019 [facility] K/uL 4:48 PM TWISTING OPERATOR [place] RBC 4.43 3.90 - 02/13/2019 [facility] 5.00 M/uL 4:48 PM TWISTING OPERATOR [place] Hemoglobin 13.4 12.0 - 02/13/2019 [facility] 15.5 g/dL 4:48 PM TWISTING OPERATOR [place] Hematocrit 41.0 35.0 - 02/13/2019 [facility] 44.0 % 4:48 PM TWISTING OPERATOR [place] Platelets 397 150 - 450 02/13/2019 [facility] K/uL 4:48 PM TWISTING OPERATOR [place] MCV 92.6 81.6 - 02/13/2019 [facility] 98.3 fL 4:48 PM TWISTING OPERATOR [place] MCH 30.2 26.0 - 02/13/2019 [facility] 32.0 pg 4:48 PM TWISTING OPERATOR [place] MCHC 32.7 32.0 - 02/13/2019 [facility] 36.0 g/dL 4:48 PM TWISTING OPERATOR [place] RDW 13.2 11.9 - 02/13/2019 [facility] 15.5 % 4:48 PM TWISTING OPERATOR [place] Lymphocytes % 32.7 18.0 - 02/13/2019 [facility] 45.0 % 4:48 PM TWISTING OPERATOR [place] Mid-size Cells 10.0 3.3 - 10.1 02/13/2019 [facility] % 4:48 PM TWISTING OPERATOR [place] Granulocytes/Percy 57.3 45.8 - 02/13/2019 [facility] [place] trophils 73.7 % 4:48 PM TWISTING OPERATOR [place] Lymphocytes 2.3 0.9 - 2.9 02/13/2019 [facility] Absolute K/uL 4:48 PM TWISTING OPERATOR [place] MIDS Absolute 0.7 0.2 - 0.8 02/13/2019 [facility] K/uL 4:48 PM TWISTING OPERATOR [place] Granulocytes/Percy 3.9 2.1 - 8.7 02/13/2019 [facility] [place] trophils K/uL 4:48 PM TWISTING OPERATOR [place] Absolute Specimen Anatomical Collection Method Collection Time Receive d Time (Source) Location / / Volume Laterality Blood 02/13/2019 4:25 PM 0 4:25 TWISTING OPERATOR PM TWISTING OPERATOR Katty Rojas APRN, CNP LAB BLOOD ORDERABLES Performing Organization Address [facility] Phon e Number [facility] [place] [address] [place] [address] Vitamin B12 (02/13/2019 4:25 PM TWISTING OPERATOR) P athologist Signature Vitamin B-12 411 419 - 998 02/14/2019 [facility] pg/mL 2:25 PM TWISTING OPERATOR CENTER LAB[facility]ORY Comment: The results from this or any other diagn ostic test should be used and interpreted only in the context of the overall clinical picture. Biotin levels in serum remain elevated f or up to 24 hours after oral or intravenous biotin adminis tration and may interfere with this assay to produce unr eliable results. Exposure to animal antigens, either in t environment or as part of treatment or imaging procedur , may have circulating anti-animal antibodies prese nt. These antibodies may interfere with the assay reagents to produce unreliable results. Specimen Anatomical Collection Method Collection Time Receive d Time (Source) Location / / Volume Laterality Blood 02/13/2019 4:25 PM 0 TWISTING OPERATOR 12:28 PM TWISTING OPERATOR Katty Rojas APRN, CNP LAB BLOOD ORDERABLES Performing Organization Address City/[facility]/ZIP Code Phon e Number [facility] [address] [place] [address] documented in this encounter Visit Diagnoses Diagnosis Essential hypertension - Primary Unspecified essential hypertension Anxiety Anxiety state, unspecified Restless legs Restless legs syndrome (RLS) Hyperlipidemia, unspecified hyperlipidem ia type Reactive airway disease without complica tion, unspecified asthma severity, unspecified whether persistent S/P laparoscopic sleeve gastrectomy Morbid obesity (HCC) Morbid obesity S/P laparoscopic sleeve gastrectomy Morbid obesity (HCC) Morbid obesity Hyperlipidemia, unspecified hyperlipidem ia type documented in this encounter Care Teams Film Washer Relationship Specialty Start Date End Date Katty Rojas, TELEVISION PRODUCTION ASSISTANT, SUPERVISOR [employer]BE[employer] REMOVAL PCP - General 09/11/17 10/13/[address] [place] [id number] documented as of this encounter
--- OUTSIDE RECORDS SUMMARY | 2021-12-12 09:57 | XMS_ITS | Encounter Summary ---
:[address] [facility] Address [address] [place] [address] Care Team Providers Name Role Phone Lee Hannon MD Primary Care Provider Encounter Details Date Type Department Care Team Description 03/05/2020 Lab [place] S/P laparoscopic sleeve krista rectomy; [address] Essential [place], [place] [address] Social History Tobacco Use [...] at Date Recorded Female 04/13/2021 4:03 PM HAT LINING BLOCKER documented as of this encounter Plan of Treatment Not on filedocumented as of this encounter Procedures Procedure Name Priority Date/Time Associated Diagnosis Comme nts GLOMERULAR FILTRATION Routine 03/05/2020 1:25 S/P laparoscopic Results for this RATE PM HAT LINING BLOCKER sleeve gastrectomy procedure are in the results section. VITAMIN D, TOTAL Routine 03/05/2020 1:25 S/P laparoscopic Resu lts for this PM HAT LINING BLOCKER sleeve gastrectomy procedure are in the results section. CBC BRANCH OFFICE Routine 03/05/2020 1:25 S/P laparoscopic Res ults for this W/DIFF PM HAT LINING BLOCKER sleeve gastrectomy procedure are in the results section. VITAMIN B1, WHOLE Routine 03/05/2020 1:25 S/P laparoscopic Res ults for this BLOOD PM HAT LINING BLOCKER sleeve gastrectomy procedure are in the results section. VITAMIN A Routine 03/05/2020 1:25 S/P laparoscopic Results for this PM HAT LINING BLOCKER sleeve gastrectomy procedure are in the results section. TSH Routine 03/05/2020 1:25 S/P laparoscopic Results for this PM HAT LINING BLOCKER sleeve gastrectomy procedure are in the results section. PREALBUMIN Routine 03/05/2020 1:25 S/P laparoscopic Results for this PM HAT LINING BLOCKER sleeve gastrectomy procedure are in the results section. PTH, INTACT Routine 03/05/2020 1:25 S/P laparoscopic Results for this PM HAT LINING BLOCKER sleeve gastrectomy procedure are in the results section. FOLATE Routine 03/05/2020 1:25 S/P laparoscopic Results for this PM HAT LINING BLOCKER sleeve gastrectomy procedure are in the results section. FERRITIN Routine 03/05/2020 1:25 S/P laparoscopic Results for this PM HAT LINING BLOCKER sleeve gastrectomy procedure are in the results section. VITAMIN B12 Routine 03/05/2020 1:25 S/P laparoscopic Results for this PM HAT LINING BLOCKER sleeve gastrectomy procedure are in the results section. LIPID PANEL Routine 03/05/2020 1:25 Essential Results for this PM HAT LINING BLOCKER hypertension procedure are in S/P laparoscopic the results sleeve gastrectomy section. COMPREHENSIVE Routine 03/05/2020 1:25 S/P laparoscopic Results for this METABOLIC PANEL PM HAT LINING BLOCKER sleeve gastrectomy proced ure are in the results section. documented in this encounter Results Glomerular filtration rate (GFR) (03/05/2020 1:25 PM HAT LINING BLOCKER) P athologist Signature GFR >60 03/05/2020 [facility] 6:25 PM HAT LINING BLOCKER [facility] >60 03/05/2020 [facility] [place] GFR 6:25 PM HAT LINING BLOCKER [facility] Comment: GFR calculated from serum creatinine v alue Chronic Kidney Disease less than 60 mL/m in/1.73 m2 Kidney Failure less than 15 mL/min/1.73 m2 Note: effective 06/20/06 IDMS-Traceable MDRD Study Equation used. Specimen Anatomical Collection Method Collection Time Receive d Time (Source) Location / / Volume Laterality 03/05/2020 1:25 PM 1:25 HAT LINING BLOCKER PM HAT LINING BLOCKER Lee Hannon MD LAB BLOOD ORDERABLES Performing Organization Address City/State/ZIP Code Phon e Number [facility] [address] [place] [address] CBC Branch Off w/Diff (03/05/2020 1:25 PM HAT LINING BLOCKER) P athologist Signature WBC 6.6 3.5 - 10.5 03/05/2020 [facility] K/uL 1:34 PM HAT LINING BLOCKER [place] RBC 4.24 3.90 - 03/05/2020 [facility] 5.00 M/uL 1:34 PM HAT LINING BLOCKER [place] Hemoglobin 12.7 12.0 - 03/05/2020 [facility] 15.5 g/dL 1:34 PM HAT LINING BLOCKER [place] Hematocrit 38.8 35.0 - 03/05/2020 [facility] 44.0 % 1:34 PM HAT LINING BLOCKER [place] Platelets 364 150 - 450 03/05/2020 [facility] K/uL 1:34 PM HAT LINING BLOCKER [place] MCV 91.5 81.6 - 03/05/2020 [facility] 98.3 fL 1:34 PM HAT LINING BLOCKER [place] MCH 30.0 26.0 - 03/05/2020 [facility] 32.0 pg 1:34 PM HAT LINING BLOCKER [place] MCHC 32.7 32.0 - 03/05/2020 [facility] 36.0 g/dL 1:34 PM HAT LINING BLOCKER [place] RDW 13.7 11.9 - 03/05/2020 [facility] 15.5 % 1:34 PM HAT LINING BLOCKER [place] Lymphocytes % 27.8 % 03/05/2020 [facility] 1:34 PM HAT LINING BLOCKER [place] Mid-size Cells 7.8 % 03/05/2020 [facility] 1:34 PM H[facility] LINING BLOCKER [place] Granulocytes/Percy 64.4 % 03/05/2020 [facility] trophils 1:34 PM HAT LINING BLOCKER [place] Lymphocytes 1.8 0.9 - 2.9 03/05/2020 [facility] Absolute K/uL 1:34 PM HAT LINING BLOCKER [place] MIDS Absolute 0.5 0.4 - 1.5 03/05/2020 [facility] K/uL 1:34 PM HAT LINING BLOCKER [place] Granulocytes/Percy 4.3 1.7 - 7.0 03/05/2020 [facility] trophils K/uL 1:34 PM HAT LINING BLOCKER [place] Absolute Specimen Anatomical Collection Method Collection Time Receive d Time (Source) Location / / Volume Laterality Blood 03/05/2020 1:25 PM 1:33 HAT LINING BLOCKER PM [facility] Lee Hannon MD LAB BLOOD ORDERABLES Performing Organization Address City/State/ZIP Code Phon e Number [facility] CARLITOS TERESA [address] [place] [address] Comprehensive metabolic panel (03/05/2020 1:25 PM [facility]) athologist Signature Total Protein 7.2 6.3 - 8.2 03/05/2020 [facility] g/dL 6:25 PM [facility] Albumin, Serum 4.2 3.5 - 5.0 03/05/2020 [facility] g/dL 6:25 PM [facility] Total Bilirubin <0.7 0.1 - 1.0 03/05/2020 [facility] mg/dL 6:25 PM [facility] AST 25 8 - 43 U/L 03/05/2020 [facility] 6:25 PM [facility] Alkaline 87 38 - 128 03/05/2020 [facility] Phosphatase U/L 6:25 PM [facility] ALT (SGPT) 24 0 - 34 U/L 03/05/2020 [facility] 6:25 PM [facility] Sodium 135 135 - 145 03/05/2020 [facility] mEq/L 6:25 PM [facility] Potassium 3.7 3.5 - 5.1 03/05/2020 [facility] mEq/L 6:25 PM [facility] Chloride 102 98 - 107 03/05/2020 [facility] mEq/L 6:25 PM [facility] CO2 25 22 - 29 03/05/2020 [facility] mmol/L 6:25 PM [facility] BUN 14 5 - 25 03/05/2020 [facility] mg/dL 6:25 PM [facility] Creatinine 0.6 0.4 - 1.2 03/05/2020 [facility] mg/dL 6:25 PM [facility] Glucose 89 70 - 100 03/05/2020 [facility] mg/dL 6:25 PM [facility] Calcium, Total,S 9.4 8.4 - 10.2 03/05/2020 [facility] mg/dL 6:25 PM [facility] Specimen Anatomical Collection Method Collection Time Receive d Time (Source) Location / / Volume Laterality Blood (Blood, 03/05/2020 1:25 PM 03/05/19 21 5:59 Venous) HAT LINING BLOCKER PM HAT LINING BLOCKER Lee Hannon MD LAB BLOOD ORDERABLES Performing Organization Address City/[facility]/ZIP Code Phon e Number [facility] [address] [place] [address] Vitamin A (03/05/2020 1:25 PM HAT LINING BLOCKER) athologist Signature Free Retinol 40.6 32.5 - 03/09/2020 [facility] (Vit A) 78.0 10:50 AM HAT LINING BLOCKER LABORATORIES mcg/dL Comment: ADDITIONAL INFORMATIO N This test was developed and its performa nce characteristics determined by [facility] in a manner co nsistent with CLIA requirements. This test has not been leobardo ared or approved by the U.S. Food and Drug Administration. Test Performed by: [facility] [address] [address] Drip Box Tender: Anson Powell M.D. Ph. D.; CLIA# [id number] Specimen Anatomical Collection Method Collection Time Receive d Time (Source) Location / / Volume Laterality Blood (Blood, 03/05/2020 1:25 PM 03/05/19 21 Venous) HAT LINING BLOCKER 10:46 PM HAT LINING BLOCKER Lee Hannon MD LAB BLOOD ORDERABLES Performing Organization Address City/[facility]/ZIP Code Phon e Number [facility] see result attachment for specific address (ABNORMAL) Vitamin D, Total (03/05/2020 1:25 PM HAT LINING BLOCKER) Analysis Performed At Patho logist Time Signature Vitamin D, 28.0 (A) ng/mL 03/08/2020 [facility] Total 8:11 PM HAT LINING BLOCKER [facility] Comment: Deficient ?<20 ? ng/mL Insufficient ? 20-<30 ??ng/mL Sufficient ? 30-100 ??ng/mL Vitamin D2/D3 fractionation is recommend ed at the discretion of the clinician if Total Vitamin D is w ithin deficient or insufficient range. Specimen Anatomical Collection Method Collection Time Receive d Time (Source) Location / / Volume Laterality Blood 03/05/2020 1:25 PM 5:59 HAT LINING BLOCKER PM HAT LINING BLOCKER Lee Hannon MD LAB BLOOD ORDERABLES Performing Organization Address City/[facility] Code Phon e Number [facility] [address] [place] [address] Ferritin (03/05/2020 1:25 PM HAT LINING BLOCKER) athologist Signature Ferritin 32 6 - 137 03/05/2020 [facility] ng/mL 7:29 PM HAT LINING BLOCKER [facility] Comment: The results from this [...] Location / / Volume Laterality Blood (Blood, 03/05/2020 1:25 PM 03/05/19 21 5:59 Venous) HAT LINING BLOCKER PM HAT LINING BLOCKER Lee Hannon MD LAB BLOOD ORDERABLES Performing Organization Address City/[facility]/ZIP Code Phon e Number [facility] [address] [place] [address] Vitamin B1, whole blood (03/05/2020 1:25 PM HAT LINING BLOCKER) athologist Signature Thiamin 117 70 - 180 03/09/2020 [facility] (Vitamin B1) nmol/L 10:22 AM HAT LINING BLOCKER LABORATORIES Comment: ADDITIONAL INFORMATIO N This test was developed and its performa nce characteristics determined by [facility] in a manner co nsistent with CLIA requirements. This test has not been leobardo ared or approved by the U.S. Food and Drug Administration. Test Performed by: [facility] [address] [place], [place] [address] Drip Box Tender: Anson Powell M.D. Ph. D.; CLIA# [id number] Specimen Anatomical Collection Method Collection Time Receive d Time (Source) Location / / Volume Laterality Blood (Blood, 03/05/2020 1:25 PM 03/05/19 Venous) HAT LINING BLOCKER 10:46 PM HAT LINING BLOCKER Lee Hannon MD LAB BLOOD ORDERABLES Performing Organization Address City/[facility] Phon e Number [facility] see result attachment for specific address Folate (03/05/2020 1:25 PM HAT LINING BLOCKER) athologist Signature Folate 9.5 >=2.8 ng/mL 03/05/2020 [facility] 8:06 PM HAT LINING BLOCKER [facility] Comment: The results from this [...] Location / / Volume Laterality Blood (Blood, 03/05/2020 1:25 PM 03/05/19 5:59 Venous) HAT LINING BLOCKER PM HAT LINING BLOCKER Lee Hannon MD LAB BLOOD ORDERABLES Performing Organization Address City/[facility]/ZIP Code Phon e Number [facility] [address] [place] [address] Vitamin B12 (03/05/2020 1:25 PM HAT LINING BLOCKER) athologist Signature Vitamin B-12 386 239 - 931 03/05/2020 [facility] pg/mL 8:06 PM HAT LINING BLOCKER [facility] Comment: The results from this [...] (Source) Location / / Volume Laterality Blood 03/05/2020 1:25 PM 5:59 HAT LINING BLOCKER PM HAT LINING BLOCKER Lee Hannon MD LAB BLOOD ORDERABLES Performing Organization Address City/[facility]/ZIP Code Phon e Number [facility] [address] [place] [id number] PTH, intact (03/05/2020 1:25 PM HAT LINING BLOCKER) athologist Signature Parathyroid 70.7 10.0 - 03/05/2020 [facility] Hormone 87.0 pg/mL 6:52 PM [facility] Comment: The results from this [...] Location / / Volume Laterality Blood (Blood, 03/05/2020 1:25 PM 03/05/19 5:59 Venous) HAT LINING BLOCKER PM HAT LINING BLOCKER Lee Hannon MD LAB BLOOD ORDERABLES Performing Organization Address City/[facility]/ZIP Code Phon e Number [facility] [address] [place] [address] Prealbumin (03/05/2020 1:25 PM HAT LINING BLOCKER) athologist Signature Prealbumin 20.6 17.6 - 36.0 03/05/2020 [facility] mg/dL 6:42 PM [facility] Specimen Anatomical Collection Method Collection Time Receive d Time (Source) Location / / Volume Laterality Blood (Blood, 03/05/2020 1:25 PM 03/05/19 21 5:59 Venous) HAT LINING BLOCKER PM HAT LINING BLOCKER Lee Hannon MD LAB BLOOD ORDERABLES Performing Organization Address City/State/ZIP Code Phon e Number [facility] [address] [place] [address] (ABNORMAL) Lipid panel (03/05/2020 1:25 PM HAT LINING BLOCKER) athologist Signature Cholesterol 239 (H) 0 - 199 03/05/2020 [facility] mg/dL 6:25 PM [facility] Comment: Recommended by National Cholesterol Education Program (ATP III) -------- Cholesterol Ranges -------- <200 ?Desirable 200-239 ? Borderline high >=240 ? High Triglycerides 75 0 - 149 mg/dL 03/05/2020 6:25 PM [facility] Comment: -------- TRIG Ranges -------- <150 ?Normal 150-199 ? Borderline high 200-499 ? High >=500 ? Very high HDL 51 40 - 250 mg/dL 03/05/2020 6:25 PM [facility] Comment: -------- HDL Ranges -------- <40 ?Low 40-59 ?Normal >=60 ? Optimal LDL Calculated 173 (H) 0 - 99 mg/dL 03/05/2020 6:25 PM [facility] Comment: -------- LDL Ranges -------- <100 ? Optimal 100-129 ?Near optimal/above op timal 130-159 ?Borderline high 160-189 ?High >=190 ?Very high Fasting? Yes 03/05/2020 1:33 PM HAT LINING BLOCKER [facility] Specimen Anatomical Collection Method Collection Time Receive d Time (Source) Location / / Volume Laterality Blood 03/05/2020 1:25 PM 5:59 HAT LINING BLOCKER PM HAT LINING BLOCKER Lee Hannon MD LAB BLOOD ORDERABLES Performing Organization Address City/[facility]/ZIP Code Phon e Number [facility] [address] [place] [address] TSH (03/05/2020 1:25 PM HAT LINING BLOCKER) athologist Signature TSH, Sensitive 0.83 0.46 - 03/05/2020 [facility] 4.68 mIU/L 6:59 PM HAT LINING BLOCKER [facility] Comment: The results from this [...] Location / / Volume Laterality Blood (Blood, 03/05/2020 1:25 PM 03/05/19 21 5:59 Venous) HAT LINING BLOCKER PM HAT LINING BLOCKER Lee Hannon MD LAB BLOOD ORDERABLES Performing Organization Address [facility]/ZIP Code Phon e Number [facility] [address] [place] [address] documented in this encounter Visit Diagnoses Diagnosis S/P laparoscopic sleeve gastrectomy Essential hypertension Unspecified essential hypertension documented in this encounter Care Teams Belt Buckle Maker Relationship Specialty Start Date End Date Lee Hannon MD PCP - General Family Medicine 02/26/20 03/20/[address] [place] [phone] documented as of this encounter
--- OUTSIDE RECORDS SUMMARY | 2021-12-12 09:57 | XMS_ITS | Encounter Summary ---
:1975 Author Organization [facility] Address [address] [place] [address] Care Team Providers Name Role Phone Lee Hannon MD Primary Care Provider Reason for Visit Reason Comments Consult Encounter Details Date Type Department Care Team Description 02/26/2020 Office Visit [facility] Lee Hannon Essent ial hypertension (Primary Dx); [facility] S/P laparoscopic sleeve gastrectomy; Pastry Supervisor [phone] Generalized anxiety disorder [address] [place] [id number] [place] [phone] Social History Tobacco Use Types Packs/Day Years [...] at Date Recorded Female 04/13/2021 4:03 PM RECTIFICATION PRINTER documented as of this encounter Last Filed Vital Signs Vital Sign Reading Time Taken Comments Blood Pressure 152/109 02/26/2020 4:04 PM RECTIFICATION PRINTER Pulse 82 02/26/2020 4:04 PM RECTIFICATION PRINTER Temperature 36.4 ??C (97.6 ??F) 02/26/2020 4:04 PM RECTIFICATION PRINTER Respiratory Rate - - Oxygen Saturation - - Inhaled Oxygen Concentration - - Weight 119 kg (261 lb 14.5 oz) 02/26/2020 4:04 PM RECTIFICATION PRINTER Height 160 cm (5' 3) 02/26/2020 4:04 PM RECTIFICATION PRINTER Body Mass Index 46.39 02/26/2020 4:04 PM RECTIFICATION PRINTER documented in this encounter Patient Instructions Patient InstructionsLee Hannon MD - 02/26/2020 4:00 PM CST Schedule fasting labs in [employer] Hold any biotin-containing supplements for 3 days prior to your blood draw. Bring your blood pressure cuff to [facility] or [place] to check your blood pressure reading with both your cuff and [facility] machine to make sure readings are consistent. Then complete the 7-day monitoring form and send through [employer] to Dr. Hannon. Continue plan for cardiology appointment. IFICATION PRINTER documented in this encounter Progress Notes Lee Hannon MD - 02/26/2020 4:00 PM CST Estab Patient Visit Subjective Patient ID: Mirella Edwards is a 44 y.o. female presenting for the following concerns. Chief Complaint Patient presents with ??? Consult HPI: Establish care- hypertension, generalized anxiety, panic disorder, agoraphobia. Previously followed by Katty Rojas NP. History of hypertension and migraine headaches. On legacy record review, note Verapamil SR 100mg once daily initiated in 2015 following consultation with Neurology for prescribed by daily headaches. Atsome point in 2017 or 2017, therapy was changed to verapamil short-acting 80mg once daily. I cannot find record of a visit when this was discussed. I also note prior therapy with hctz and lisinopril. These were held after developing lightheadedness and dizziness upon rapid weight loss after bariatric surgery. History of obesity, gastric bypass. Underwent sleeve gastrectomy 09/26/17 with Francisco MILLER in [facility]. Peak weight loss 77 lb, recalls that she was down to about 220lb at her lowest weight. Since - pandemic, regained over 30lb. Panic disorder, anxiety, and agoraphobia have been heightened to extreme. Feels unable to wear a mask over her face due to PTSD. Feels socially isolated anddisconnected when she sees other people wearing masks, distressed by being unable to see others' faces. She has struggled with menorrhagia, for which she has sought evaluation with OBGYN, has seen Dr. Peterson on 11/30 and 02/12 recently. She has noted association between reduced carbohydrate intake and heavier bleeding. She has had difficulty adhering to the post-bariatric nutrition recommendations becauseof this. Mirena IUD exchanged. Additional oral norethindrone prescribed; not yet started as she has not experienced vaginal bleeding since last visit on the . Review of Systems Constitutional: Negative for fever. Respiratory: Negative for shortness of breath. Cardiovascular: Negative for chest pain and palpitations. The following portions of the patient's chart were reviewed in this encounter and updated as appropriate: Tobacco Allergies Meds Problems Med Hx Surg Hx OB Status Fam Hx Objective Visit Vitals BP (!) 152/109 Pulse 82 Temp 36.4 ??C (97.6 ??F) (Temporal) Ht 1.6 m (5' 3) Wt 119 kg (261 lb 14.5 oz) BMI 46.39 kg/m?? OB Status IUD Smoking Status Never Smoker BSA 2.3 m?? Physical Exam Vitals signs and nursing note reviewed. Constitutional: General: She is not in acute distress. Appearance: Normal appearance. Pulmonary: Effort: Pulmonary effort is normal. Comments: Able to tolerate face shield only, does not wear a mask for today's encounter. Neurological: Mental Status: She is alert and oriented to person, place, and time. Assessment/Plan Mirella was seen today for consult. Diagnoses and all orders for this visit: Essential hypertension (Primary) - Lipid panel; Future S/P laparoscopic sleeve gastrectomy - [facility] Off w/Diff; Future - Comprehensive metabolic panel; Future - Vitamin A; Future - Vitamin D, Total; Future - Ferritin; Future - Vitamin B1, whole blood; Future - Vitamin B12; Future - Folate; Future - PTH, intact; Future - Prealbumin; Future - Lipid panel; Future - TSH; Future Generalized anxiety disorder Current dosing once daily short acting verapamil 80mg in evening for hypertension and migraine prophylaxis. Strong component of anxiety and white coat syndrome likely contributing to elevated BP. Advised returning to [facility] clinic with BP cuff to ensure consistent measurement. Followed by 7-day home BP monitoring, to decide next warranted therapy. Discussed potential resumption of SR form verapamil, vs TID dosing of short acting verapamil. Discussed non-drug strategies for lowering BP- particularly physical activity, low-salt diet, regular exercise, stress management. Handout given. Continue plan for cardiology consultation, Discussed anxiety. Continue current dose Effexor. Would urge consultation with psychiatry for the severity of her symptoms, if she wished to titrate medication further. Needs new PCP, prefers female, wishes to avoid driving in [place] due to anxiety. Lives in [place] and works in [employer]. Discussed provider options in [facility], and [facility]. Lee Hannon MD IFICATION PRINTER documented in this encounter Plan of Treatment Not on filedocumented as of this encounter Results TSH (03/05/2020 1:25 PM RECTIFICATION PRINTER) athologist Signature TSH, Sensitive 0.83 0.46 - 03/05/2020 [facility] L 4.68 mIU/L 6:59 PM RECT[facility]ICATION [facility] Comment: The results from this [...] (Blood, 03/05/2020 1:25 PM 03/05/19 5:59 Venous) RECTIFICATION PRINTER PM RECTIFICATION PRINTER Lee Hannon MD LAB BLOOD ORDERABLES Performing Organization Address City/State/ZIP Code Phon e Number [facility] [address] [place] [address] (ABNORMAL) Lipid panel (03/05/2020 1:25 PM RECTIFICATION PRINTER) athologist Signature Cholesterol 239 (H) 0 - 199 03/05/2020 [facility] mg/dL 6:25 PM [facility] Comment: Recommended by National Cholesterol Education Program (ATP III) -------- Cholesterol Ranges -------- <200 ?Desirable 200-239 ? Borderline high >=240 ? High Triglycerides 75 0 - 149 mg/dL 03/05/2020 6:25 PM [facility] Comment: -------- TRIG Ranges -------- <150 ?Normal 150-199 ? Borderline high 200-499 ? High >=500 ? Very high HDL 51 40 - 250 mg/dL 03/05/2020 6:25 PM [facility] Comment: -------- HDL Ranges -------- <40 ?Low 40-59 ?Normal >=60 ? Optimal LDL Calculated 173 (H) 0 - 99 mg/dL 03/05/2020 6:25 PM [facility] Comment: -------- LDL Ranges -------- <100 ? Optimal 100-129 ?Near optimal/above op timal 130-159 ?Borderline high 160-189 ?High >=190 ?Very high Fasting? Yes 03/05/2020 1:33 PM [facility] Specimen Anatomical Collection Method Collection Time Receive d Time (Source) Location / / Volume Laterality Blood 03/05/2020 1:25 PM 5:59 RECTIFICATION PRINTER PM RECTIFICATION PRINTER Lee Hannon MD LAB BLOOD ORDERABLES Performing Organization Address City/State/ZIP Code Phon e Number [facility] [address] [place] [address] Prealbumin (03/05/2020 1:25 PM RECTIFICATION PRINTER) athologist [facility] Prealbumin 20.6 17.6 - 36.0 03/05/2020 [facility] mg/dL 6:42 PM RECTIFICATION PRINTER [facility] Specimen Anatomical Collection Method Collection Time Receive d Time (Source) Location / / Volume Laterality Blood (Blood, 03/05/2020 1:25 PM 03/05/19 5:59 Venous) RECTIFICATION PRINTER PM RECTIFICATION PRINTER Lee Hannon MD LAB BLOOD ORDERABLES Performing Organization Address City/[facility] Code Phon e Number [facility] [address] [place] [address] PTH, intact (03/05/2020 1:25 PM RECTIFICATION PRINTER) athologist [facility] Parathyroid 70.7 10.0 - 03/05/2020 [place] Hormone 87.0 pg/mL 6:52 PM [facility] Comment: The results from [...] (Blood, 03/05/2020 1:25 PM 03/05/19 5:59 Venous) RECTIFICATION PRINTER PM RECTIFICATION PRINTER Lee Hannon MD LAB BLOOD ORDERABLES Performing Organization Address City/[facility]/ZIP Code Phon e Number [facility] [address] [place] [address] Folate (03/05/2020 1:25 PM RECTIFICATION PRINTER) athologist [facility] Folate 9.5 >=2.8 ng/mL 03/05/2020 [facility] 8:06 PM RE[facility] Comment: The results from this [...] (Blood, 03/05/2020 1:25 PM 03/05/19 5:59 Venous) RECTIFICATION PRINTER PM RECTIFICATION PRINTER Lee Hannon MD LAB BLOOD ORDERABLES Performing Organization Address City/[facility] e Number [facility] [address] [place] [address] Vitamin B12 (03/05/2020 1:25 PM RECTIFICATION PRINTER) athologist Signature Vitamin B-12 386 239 - 931 03/05/2020 [facility] pg/mL 8:06 PM RECTIFICATION PRINTER [facility] Comment: The results from this [...] Volume Laterality Blood 03/05/2020 1:25 PM 5:59 RECTIFICATION PRINTER PM RECTIFICATION PRINTER Lee Hannon MD LAB BLOOD ORDERABLES Performing Organization Address City/[facility] e Number [facility] [address] [place] [address] Vitamin B1, whole blood (03/05/2020 1:25 PM RECTIFICATION PRINTER) athologist Signature Thiamin 117 70 - 180 03/09/2020 [facility] (Vitamin B1) nmol/L 10:22 AM RECTIFICATION PRINTER [facility] Comment: ADDITIONAL INFORMATIO N This test was developed and its performa nce characteristics determined by [facility] in a manner co nsistent with CLIA requirements. This test has not been leobardo ared or approved by the U.S. Food and Drug Administration. Test Performed by: [facility] [address] [place] [address] Student Services Director: Anson Powell M.D. Ph. D.; CLIA# [id number] Specimen Anatomical Collection Method Collection Time Receive d Time (Source) Location / / Volume Laterality Blood (Blood, 03/05/2020 1:25 PM 03/05/19 Venous) RECTIFICATION PRINTER 10:46 PM RECTIFICATION PRINTER Lee Hannon MD LAB BLOOD ORDERABLES Performing Organization Address City/State/ZIP Code Phon e Number [facility] see result attachment for specific address Ferritin (03/05/2020 1:25 PM RECTIFICATION PRINTER) athologist Signature Ferritin 32 6 - 137 03/05/2020 [facility] ng/mL 7:29 PM RECTIFICATION PRINTER [facility] Comment: The results from this [...] (Blood, 03/05/2020 1:25 PM 03/05/19 5:59 Venous) RECTIFICATION PRINTER PM RECTIFICATION PRINTER Lee Hannon MD LAB BLOOD ORDERABLES Performing Organization Address City/State/ZIP Code Phon e Number [facility] [address] [place] [phone] (ABNORMAL) Vitamin D, Total (03/05/2020 1:25 PM RECTIFICATION PRINTER) Analysis Performed At Patho logist Time Signature Vitamin D, 28.0 (A) ng/mL 03/08/2020 [place] Total 8:11 PM [facility] Comment: Deficient ?<20 ? ng/mL Insufficient ? 20-<30 ??ng/mL Sufficient ? 30-100 ??ng/mL Vitamin D2/D3 fractionation is recommend ed at the discretion of the clinician if Total Vitamin D is w ithin deficient or insufficient range. Specimen Anatomical Collection Method Collection Time Receive d Time (Source) Location / / Volume Laterality Blood 03/05/2020 1:25 PM 5:59 RECTIFICATION PRINTER PM RECTIFICATION PRINTER Lee Hannon MD LAB BLOOD ORDERABLES Performing Organization Address City/State/ZIP Code Phon e Number [facility] [address] [place] [address] Vitamin A (03/05/2020 1:25 PM RECTIFICATION PRINTER) P athologist Signature Free Retinol 40.6 32.5 - 03/09/2020 [facility] (Vit A) 78.0 10:50 AM [facility] mcg/dL Comment: ADDITIONAL INFORMATIO N This test was developed and its performa nce characteristics determined by [facility] in a manner co nsistent with CLIA requirements. This test has not been leobardo ared or approved by the U.S. Food and Drug Administration. Test Performed by: [facility] [address] [place] [address] Student Services Director: Anson Powell M.D. Ph. D.; CLIA# [id number] Specimen Anatomical Collection Method Collection Time Receive d Time (Source) Location / / Volume Laterality Blood (Blood, 03/05/2020 1:25 PM 03/05/19 21 Venous) RECTIFICATION PRINTER 10:46 PM RECTIFICATION PRINTER Lee Hannon MD LAB BLOOD ORDERABLES Performing Organization Address City/State/ZIP Code Phon e Number [facility] see result attachment for specific address Comprehensive metabolic panel (03/05/2020 1:25 PM RECTIFICATION PRINTER) athologist Signature Total Protein 7.2 6.3 - 8.2 03/05/2020 [place] g/dL 6:25 PM [facility] Albumin, Serum 4.2 3.5 - 5.0 03/05/2020 [place] g/dL 6:25 PM [facility] Total Bilirubin <0.7 0.1 - 1.0 03/05/2020 [place] mg/dL 6:25 PM [facility] AST 25 8 - 43 U/L 03/05/2020 [place] 6:25 PM [facility] Alkaline 87 38 - 128 03/05/2020 [place] Phosphatase U/L 6:25 PM [facility] ALT (SGPT) 24 0 - 34 U/L 03/05/2020 [place] 6:25 PM [facility] Sodium 135 135 - 145 03/05/2020 [place] mEq/L 6:25 PM [facility] Potassium 3.7 3.5 - 5.1 03/05/2020 [place] mEq/L 6:25 PM [facility] Chloride 102 98 - 107 03/05/2020 [place] mEq/L 6:25 PM [facility] CO2 25 22 - 29 03/05/2020 [place] mmol/L 6:25 PM [facility] BUN 14 5 - 25 03/05/2020 [place] mg/dL 6:25 PM [facility] Creatinine 0.6 0.4 - 1.2 03/05/2020 [place] mg/dL 6:25 PM [facility] Glucose 89 70 - 100 03/05/2020 [place] mg/dL 6:25 PM [facility] Calcium, Total,S 9.4 8.4 - 10.2 03/05/2020 [place] mg/dL 6:25 PM [facility] Specimen Anatomical Collection Method Collection Time Receive d Time (Source) Location / / Volume Laterality Blood (Blood, 03/05/2020 1:25 PM 03/05/19 5:59 Venous) RECTIFICATION PRINTER PM RECTIFICATION PRINTER Lee Hannon MD LAB BLOOD ORDERABLES Performing Organization Address City/State/ZIP Code Phon e Number [facility] [address] [place] [address] CBC Branch Off w/Diff (03/05/2020 1:25 PM RECTIFICATION PRINTER) P athologist Signature WBC 6.6 3.5 - 10.5 03/05/2020 [facility] K/uL 1:34 PM RECTIFICATION PRINTER FALLS RBC 4.24 3.90 - 03/05/2020 [facility] 5.00 M/uL 1:34 PM RECTIFICATION PRINTER FALLS Hemoglobin 12.7 12.0 - 03/05/2020 [facility] 15.5 g/dL 1:34 PM RECTIFICATION PRINTER FALLS Hematocrit 38.8 35.0 - 03/05/2020 [facility] 44.0 % 1:34 PM RECTIFICATION PRINTER FALLS Platelets 364 150 - 450 03/05/2020 [facility] K/uL 1:34 PM RECTIFICATION PRINTER FALLS MCV 91.5 81.6 - 03/05/2020 [facility] 98.3 fL 1:34 PM RECTIFICATION PRINTER FALLS MCH 30.0 26.0 - 03/05/2020 [facility] 32.0 pg 1:34 PM RECTIFICATION PRINTER FALLS MCHC 32.7 32.0 - 03/05/2020 [facility] 36.0 g/dL 1:34 PM RECTIFICATION PRINTER FALLS RDW 13.7 11.9 - 03/05/2020 [facility] 15.5 % 1:34 PM RECTIFICATION PRINTER FALLS Lymphocytes % 27.8 % 03/05/2020 [facility] 1:34 PM RECTIFICATION PRINTER FALLS Mid-size Cells 7.8 % 03/05/2020 [facility] 1:34 PM RECTIFICATION PRINTER FALLS Granulocytes/Percy 64.4 % 03/05/2020 [facility] trophils 1:34 PM RECTIFICATION PRINTER FALLS Lymphocytes 1.8 0.9 - 2.9 03/05/2020 [facility] Absolute K/uL 1:34 PM RECTIFICATION PRINTER [facility]ALL[facility] MIDS Absolute 0.5 0.4 - 1.5 03/05/2020 [facility] [place] K/uL 1:34 PM RECTIFICATION PRINTER FALLS Granulocytes/Percy 4.3 1.7 - 7.0 03/05/2020 [facility] [place] trophils K/uL 1:34 PM RECTIFICATION PRINTER [place]ALL[place] Absolute Specimen Anatomical Collection Method Collection Time Receive d Time (Source) Location / / Volume Laterality Blood 03/05/2020 1:25 PM 1:33 RECTIFICATION PRINTER PM RECTIFICATION PRINTER Lee Hannon MD LAB BLOOD ORDERABLES Performing Organization Address City/State/ZIP Code Phon e Number [facility] [address] [place] [address] documented in this encounter Visit Diagnoses Diagnosis Essential hypertension - Primary Unspecified essential hypertension S/P laparoscopic sleeve gastrectomy Generalized anxiety disorder documented in this encounter Care Teams Snowboarder Relationship Specialty Start Date End Date Lee Hannon MD PCP - General Family Medicine 02/26/20 03/20/[address] [place] [phone] documented as of this encounter
--- OUTSIDE RECORDS SUMMARY | 2021-12-12 09:57 | XMS_ITS | Encounter Summary ---
:1975 Author Organization [facility] Address [address] [place] [address] Care Team Providers Name Role Phone Katty Rojas LIME FILTER OPERATOR, CAUSTIC PURIFICATION OPERATOR Primary Care Provider [phone] Reason for Visit Reason Comments Med Refill Encounter Details Date Type Department Care Team Description 10/01/2018 Refill [place] Katty Rojas, Restless legs (Primary Dx); [address] [place] ZAVALA Essential hypertension [place], [place] [address] [address] [facility] [address] [phone] [place], [place] [address] Social History Tobacco Use Types Packs/Day Years [...] at Date Recorded Female 04/13/2021 4:03 PM COTA documented as of this encounter Miscellaneous Notes Telephone Encounter - Renetta German MA - 10/04/2018 9:28 AM CDT Last visit in Provider Department: 05/24/2018 Telephone encounter Upcoming appointment with Provider: Visit date not found Last Rx: 05.21.18 Requested Prescriptions Pending Prescriptions Disp Refills ??? verapamil (CALAN) 80 MG tablet [Pharmacy Med Name: VERAPAMIL HCL 80MG TABS] 30 tablet 11 Sig: TAKE ONE TABLET BY MOUTH EVERY DAY ??? rOPINIRole (REQUIP) 0.25 MG tablet [Pharmacy Med Name: ROPINIROLE HCL 0.25MG TABS] 180 tablet 3 Sig: TAKE ONE TO TWO TABLETS (0.25 TO 0.5 MG) AT BEDTIME NEEDED documented in this encounter Plan of Treatment Not on filedocumented as of this encounter Visit Diagnoses Diagnosis Restless legs - Primary Restless legs syndrome (RLS) Essential hypertension Unspecified essential hypertension documented in this encounter Care Teams Lime Trimmer Relationship Specialty Start Date End Date Katty Rojas APRN, CAUSTIC PURIFICATION OPERATOR PCP - General 09/11/17 10/13/[address] [place] [address] documented as of this encounter
--- OUTSIDE RECORDS SUMMARY | 2021-12-12 09:57 | XMS_ITS | Encounter Summary ---
:1975 Author Organization [facility] Address [address] [place] [address] Care Team Providers Name Role Phone Katty Rojas APRN, FIXTURE BUILDER Primary Care Provider [phone] Encounter Details Date Type Department Care Team Description 02/13/2019 Lab [place] S/P laparoscopic sleeve krista rectomy; [address] Morbid obesity (HCC); [place], [place] [address] Hyperlipidemia, unspecified hyperlipidemia type [phone] Social History Tobacco Use Types Packs/Day Years [...] at Date Recorded Female 04/13/2021 4:03 PM OPERATIONS MANAGEMENT TRAINEE documented as of this encounter Plan of Treatment Not on filedocumented as of this encounter Procedures Procedure Name Priority Date/Time Associated Diagnosis Comme nts GLOMERULAR FILTRATION Routine 02/13/2019 4:25 S/P laparoscopic Results for this RATE PM OPERATIONS MANAGEMENT TRAINEE sleeve gastrecto my procedure are in Morbid obesity (HCC) the res ults section. VITAMIN D, TOTAL Routine 02/13/2019 4:25 S/P laparoscopic Resu lts for this PM OPERATIONS MANAGEMENT TRAINEE sleeve gastrecto my procedure are in Morbid obesity (HCC) the res ults section. CBC BRANCH OFFICE Routine 02/13/2019 4:25 S/P laparoscopic Res ults for this W/DIFF PM OPERATIONS MANAGEMENT TRAINEE sleeve gastrecto my procedure are in Morbid obesity (HCC) the res ults section. VITAMIN B1, WHOLE Routine 02/13/2019 4:25 S/P laparoscopic Res ults for this BLOOD PM OPERATIONS MANAGEMENT TRAINEE sleeve gastrecto my procedure are in Morbid obesity (HCC) the res ults section. VITAMIN A Routine 02/13/2019 4:25 S/P laparoscopic Results for this PM OPERATIONS MANAGEMENT TRAINEE sleeve gastrecto my procedure are in Morbid obesity (HCC) the res ults section. INSULIN, SERUM Routine 02/13/2019 4:25 S/P laparoscopic Result s for this PM OPERATIONS MANAGEMENT TRAINEE sleeve gastrecto my procedure are in Morbid obesity (HCC) the res ults section. VITAMIN B6 Routine 02/13/2019 4:25 S/P laparoscopic Results for this PM OPERATIONS MANAGEMENT TRAINEE sleeve gastrecto my procedure are in Morbid obesity (HCC) the res ults section. IRON Routine 02/13/2019 4:25 S/P laparoscopic Results for this PM OPERATIONS MANAGEMENT TRAINEE sleeve gastrecto my procedure are in Morbid obesity (HCC) the res ults section. FOLATE Routine 02/13/2019 4:25 S/P laparoscopic Results for this PM OPERATIONS MANAGEMENT TRAINEE sleeve gastrecto my procedure are in Morbid obesity (HCC) the res ults section. FERRITIN Routine 02/13/2019 4:25 S/P laparoscopic Results for this PM OPERATIONS MANAGEMENT TRAINEE sleeve gastrecto my procedure are in Morbid obesity (HCC) the res ults section. VITAMIN B12 Routine 02/13/2019 4:25 S/P laparoscopic Results for this PM OPERATIONS MANAGEMENT TRAINEE sleeve gastrecto my procedure are in Morbid obesity (HCC) the res ults section. LIPID PANEL Routine 02/13/2019 4:25 Hyperlipidemia, Results f or this PM OPERATIONS MANAGEMENT TRAINEE unspecified procedure are i n hyperlipidemia t ype the results S/P laparoscopic section. sleeve gastrecto my Morbid obesity (HCC) COMPREHENSIVE Routine 02/13/2019 4:25 S/P laparoscopic Results for this METABOLIC PANEL PM OPERATIONS MANAGEMENT TRAINEE sleeve gastrecto my procedure are in Morbid obesity (HCC) the res ults section. documented in this encounter Results Glomerular filtration rate (GFR) (02/13/2019 4:25 PM OPERATIONS MANAGEMENT TRAINEE) P athologist Signature GFR >60 02/14/2019 [facility] 1:20 PM OPERATIONS MANAGEMENT TRAINEE [facility] >60 02/14/2019 [facility] [place] GFR 1:20 PM OPERATIONS MANAGEMENT TRAINEE [facility] Comment: GFR calculated from serum creatinine v alue Chronic Kidney Disease less than 60 mL/m in/1.73 m2 Kidney Failure less than 15 mL/min/1.73 m2 Note: effective 06/20/06 IDMS-Traceable MDRD Study Equation used. Specimen Anatomical Collection Method Collection Time Receive d Time (Source) Location / / Volume Laterality 02/13/2019 4:25 PM 0 4:25 OPERATIONS MANAGEMENT TRAINEE PM OPERATIONS MANAGEMENT TRAINEE Katty Rojas APRN, CNP LAB BLOOD ORDERABLES Performing Organization Address City/State/ZIP Code Phon e Number [facility] [address] [place] [address] Vitamin B12 (02/13/2019 4:25 PM OPERATIONS MANAGEMENT TRAINEE) athologist Signature Vitamin B-12 883 887 - 587 02/14/2019 [facility] pg/mL 2:25 PM OPERATIONS MANAGEMENT TRAINEE [facility]ENTER [facility] Comment: The results from this [...] Volume Laterality Blood 02/13/2019 4:25 PM 0 OPERATIONS MANAGEMENT TRAINEE 12:28 PM OPERATIONS MANAGEMENT TRAINEE Katty Rojas APRN, CNP LAB BLOOD ORDERABLES Performing Organization Address City/State/ZIP Code Phon e Number [facility] [address] [place] [address] CBC Branch Off w/Diff (02/13/2019 4:25 PM OPERATIONS MANAGEMENT TRAINEE) P athologist Signature WBC 6.9 3.5 - 10.5 02/13/2019 [facility] [place] K/uL 4:48 PM OPERATIONS MANAGEMENT TRAINEE [place] RBC 4.43 3.90 - 02/13/2019 [facility] [place] 5.00 M/uL 4:48 PM OPERATIONS MANAGEMENT TRAINEE [place] Hemoglobin 13.4 12.0 - 02/13/2019 [facility] [place] 15.5 g/dL 4:48 PM OPERATIONS MANAGEMENT TRAINEE [place] Hematocrit 41.0 35.0 - 02/13/2019 [facility] [place] 44.0 % 4:48 PM OPERATIONS MANAGEMENT TRAINEE [place] Platelets 397 150 - 450 02/13/2019 [facility] [place] K/uL 4:48 PM OPERATIONS MANAGEMENT TRAINEE [place] MCV 92.6 81.6 - 02/13/2019 [facility] [place] 98.3 fL 4:48 PM OPERATIONS MANAGEMENT TRAINEE [place] MCH 30.2 26.0 - 02/13/2019 [facility] [place] 32.0 pg 4:48 PM OPERATIONS MANAGEMENT TRAINEE [place] MCHC 32.7 32.0 - 02/13/2019 [facility] [place] 36.0 g/dL 4:48 PM OPERATIONS MANAGEMENT TRAINEE [place] RDW 13.2 11.9 - 02/13/2019 [facility] [place] 15.5 % 4:48 PM OPERATIONS MANAGEMENT TRAINEE [place] Lymphocytes % 32.7 18.0 - 02/13/2019 [facility] [place] 45.0 % 4:48 PM OPERATIONS MANAGEMENT TRAINEE [place] Mid-size Cells 10.0 3.3 - 10.1 02/13/2019 [facility] [place] % 4:48 PM OPERATIONS MANAGEMENT TRAINEE [place] Granulocytes/Percy 57.3 45.8 - 02/13/2019 [facility] [place] trophils 73.7 % 4:48 PM OPERATIONS MANAGEMENT TRAINEE [place] Lymphocytes 2.3 0.9 - 2.9 02/13/2019 [facility] [place] Absolute K/uL 4:48 PM OPERATIONS MANAGEMENT TRAINEE [place] MIDS Absolute 0.7 0.2 - 0.8 02/13/2019 [facility] [place] K/uL 4:48 PM OPERATIONS MANAGEMENT TRAINEE [place] Granulocytes/Percy 3.9 2.1 - 8.7 02/13/2019 [facility] [place] trophils K/uL 4:48 PM OPERATIONS MANAGEMENT TRAINEE [place] Absolute Specimen Anatomical Collection Method Collection Time Receive d Time (Source) Location / / Volume Laterality Blood 02/13/2019 4:25 PM 0 4:25 OPERATIONS MANAGEMENT TRAINEE PM OPERATIONS MANAGEMENT TRAINEE Katty Rojas OCCUPATIONAL HEALTH NURSE SUPERVISOR, FIXTURE BUILDER LAB BLOOD ORDERABLES Performing Organization Address City/State/ZIP Code Phon e Number [facility] [place] [address] [place] [address] (ABNORMAL) Comprehensive metabolic panel (02/13/2019 4:25 PM OPERATIONS MANAGEMENT TRAINEE) Analysis Performed At Patho logist Time Signature Total Protein 6.9 6.3 - 8.2 02/14/2019 [facility] g/dL 1:20 PM [facility] Albumin, Serum 4.0 3.5 - 5.0 02/14/2019 [facility] g/dL 1:20 PM [facility] Total Bilirubin <0.7 0.1 - 1.0 02/14/2019 [facility] mg/dL 1:20 PM [facility] AST 20 8 - 43 U/L 02/14/2019 [facility] 1:20 PM [facility] Alkaline 83 38 - 128 02/14/2019 [facility] Phosphatase U/L 1:20 PM [facility] ALT (SGPT) 27 0 - 34 U/L 02/14/2019 [facility] 1:20 PM [facility] Sodium 139 135 - 145 02/14/2019 [facility] mEq/L 1:20 PM [facility] Potassium 3.5 3.5 - 5.1 02/14/2019 [facility] mEq/L 1:20 PM [facility] Chloride 100 98 - 107 02/14/2019 [facility] mEq/L 1:20 PM [facility] CO2 30 (H) 22 - 29 02/14/2019 [facility] mmol/L 1:20 PM [facility] BUN 16 5 - 25 02/14/2019 [facility] mg/dL 1:20 PM [facility] Creatinine 0.6 0.4 - 1.2 02/14/2019 [facility] mg/dL 1:20 PM [facility] Glucose 90 70 - 100 02/14/2019 [facility] mg/dL 1:20 PM [facility] Calcium, Total,S 9.7 8.4 - 10.2 02/14/2019 [facility] mg/dL 1:20 PM [facility] Specimen Anatomical Collection Method Collection Time Receive d Time (Source) Location / / Volume Laterality Blood 02/13/2019 4:25 PM 0 OPERATIONS MANAGEMENT TRAINEE 12:16 PM OPERATIONS MANAGEMENT TRAINEE Katty Rojas APRN, FIXTURE BUILDER LAB BLOOD ORDERABLES Performing Organization Address City/State/ZIP Code Phon e Number [facility] [address] [place] [address] (ABNORMAL) Lipid panel (02/13/2019 4:25 PM OPERATIONS MANAGEMENT TRAINEE) athologist Signature Cholesterol 276 (A) 0 - 199 02/14/2019 [facility] mg/dL 1:[address] [facility] Comment: Recommended by National Cholesterol Education Program (ATP III) -------- Cholesterol Ranges -------- <200 ? Desirable 200-239 ? Borderline high >=240 ? High Triglycerides 74 0 - 149 mg/dL 02/14/2019 1:20 PM [facility] Comment: -------- TRIG Ranges -------- <150 ?Normal 150-199 ? Borderline high 200-499 ? High >=500 ? Very high HDL 58 40 - 60 mg/dL 02/14/2019 1:20 PM [facility] Comment: -------- HDL Ranges -------- <40 ?Low 40-59 ?Normal >=60 ? Optimal LDL Calculated 203 (A) 0 - 99 mg/dL 02/14/2019 1:20 PM [facility] Comment: -------- LDL Ranges -------- <100 ? Optimal 100-129 ?Near optimal/above op timal 130-159 ?Borderline high 160-189 ?High >=190 ?Very high Fasting? Yes 02/13/2019 4:32 PM [facility] Specimen Anatomical Collection Method Collection Time Receive d Time (Source) Location / / Volume Laterality Blood 02/13/2019 4:25 PM 0 OPERATIONS MANAGEMENT TRAINEE 12:16 PM OPERATIONS MANAGEMENT TRAINEE Katty Rojas APRN, FIXTURE BUILDER LAB BLOOD ORDERABLES Performing Organization Address City/State/ZIP Code Phon e Number [facility] [address] [place] [address] Insulin, serum (02/13/2019 4:25 PM OPERATIONS MANAGEMENT TRAINEE) athologist [facility] Insulin 8.2 2.6 - 24.9 02/14/2019 [facility] mcIU/mL 7:46 PM OPERATIONS MANAGEMENT TRAINEE LABORATORIES Comment: Test Performed by: [facility] [place] [address] Upper Cutter Machine: Anson Powell M.D. Ph. D.; CLIA# [id number] Specimen Anatomical Collection Method Collection Time Receive d Time (Source) Location / / Volume Laterality Blood (Blood, 02/13/2019 4:25 PM 02/14/19 20 Venous) OPERATIONS MANAGEMENT TRAINEE 12:54 PM OPERATIONS MANAGEMENT TRAINEE Katty Rojas APRN, CNP LAB BLOOD ORDERABLES Performing Organization Address City/[facility]/ZIP Code Phon e Number [facility] see result attachment for specific address (ABNORMAL) Vitamin B6 (02/13/2019 4:25 PM OPERATIONS MANAGEMENT TRAINEE) athologist [facility] Pyridoxal 3 (L) 5 - 50 02/18/2019 [facility] 5-Phosphate mcg/L 1:15 PM OPERATIONS MANAGEMENT TRAINEE LABORATORIES Comment: ADDITIONAL INFORMATIO N This test was developed and its performa nce characteristics determined by [facility] in a manner co nsistent with CLIA requirements. This test has not been leobardo ared or approved by the U.S. Food and Drug Administration. Test Performed by: [facility] [place] [address] Upper Cutter Machine: Anson Powell M.D. Ph. D.; CLIA# [id number] Specimen Anatomical Collection Method Collection Time Receive d Time (Source) Location / / Volume Laterality Blood (Blood, 02/13/2019 4:25 PM 02/14/19 20 Venous) OPERATIONS MANAGEMENT TRAINEE 12:54 PM OPERATIONS MANAGEMENT TRAINEE Narrative [facility] LABORATORIES - 02/18/2019 1 :15 PM OPERATIONS MANAGEMENT TRAINEE Called to CALL CANCELLED - RESULTS FAXED , , 07:32 02/18/2019 TLR01 Katty Rojas APRN, CNP LAB BLOOD ORDERABLES Performing Organization Address City/State/ZIP Code Phon e Number [facility] [place] see result attachment for specific address Vitamin A (02/13/2019 4:25 PM OPERATIONS MANAGEMENT TRAINEE) athologist Signature Free Retinol 54.8 32.5 - 02/18/2019 [facility] (Vit A) 78.0 8:51 AM OPERATIONS MANAGEMENT TRAINEE LABORATORIES mcg/dL Comment: ADDITIONAL INFORMATIO N This test was developed and its performa nce characteristics determined by [facility] in a manner co nsistent with CLIA requirements. This test has not been leobardo ared or approved by the U.S. Food and Drug Administration. Test Performed by: [email or web address] [address] [place] [address] Upper Cutter Machine: Anson Powell M.D. Ph. D.; CLIA# [id number] Specimen Anatomical Collection Method Collection Time Receive d Time (Source) Location / / Volume Laterality Blood (Blood, 02/13/2019 4:25 PM 02/14/19 20 Venous) OPERATIONS MANAGEMENT TRAINEE 12:54 PM OPERATIONS MANAGEMENT TRAINEE Narrative [facility] - 02/18/2019 8 :51 AM OPERATIONS MANAGEMENT TRAINEE Called to CALL CANCELLED - RESULTS FAXED , , 07:32 02/18/2019 TLR01 Katty Rojas APRN, CNP LAB BLOOD ORDERABLES Performing Organization Address City/State/ZIP Code Phon e Number [facility] see result attachment for specific address Vitamin B1, whole blood (02/13/2019 4:25 PM OPERATIONS MANAGEMENT TRAINEE) athologist Signature Thiamin 119 70 - 180 02/18/2019 [facility] (Vitamin B1) nmol/L 12:53 PM OPERATIONS MANAGEMENT TRAINEE LABORATORIES Comment: ADDITIONAL INFORMATIO N This test was developed and its performa nce characteristics determined by [facility] in a manner co nsistent with CLIA requirements. This test has not been leobardo ared or approved by the U.S. Food and Drug Administration. Test Performed by: [email or web address] [address] [place], [place] [address] Upper Cutter Machine: Anson Powell M.D. Ph. D.; CLIA# [id number] Specimen Anatomical Collection Method Collection Time Receive d Time (Source) Location / / Volume Laterality Blood (Blood, 02/13/2019 4:25 PM 02/14/19 20 Venous) OPERATIONS MANAGEMENT TRAINEE 12:54 PM OPERATIONS MANAGEMENT TRAINEE [facility] - 02/18/2019 1 2:53 PM OPERATIONS MANAGEMENT TRAINEE Called to CALL CANCELLED - RESULTS FAXED , , 07:32 02/18/2019 TLR01 Katty Rojas APRN, CNP LAB BLOOD ORDERABLES Performing Organization Address City/State/ZIP Code Phon e Number [facility] see result attachment for specific address Iron level (02/13/2019 4:25 PM OPERATIONS MANAGEMENT TRAINEE) athologist Signature Iron (FE) 136 37 - 170 02/14/2019 [facility] mcg/dL 1:17 PM OPERATIONS MANAGEMENT TRAINEE [facility] Specimen Anatomical Collection Method Collection Time Receive d Time (Source) Location / / Volume Laterality Blood (Blood, 02/13/2019 4:25 PM 02/14/19 20 Venous) OPERATIONS MANAGEMENT TRAINEE 12:16 PM OPERATIONS MANAGEMENT TRAINEE Katty Rojas APRN, CNP LAB BLOOD ORDERABLES Performing Organization Address City/[facility]/ZIP [facility] Phon e Number [facility] [address] [place], [place] [id number] Folate (02/13/2019 4:25 PM OPERATIONS MANAGEMENT TRAINEE) athologist Signature Folate 11.6 >=2.8 ng/mL 02/14/2019 [facility] 2:25 PM OPERATIONS MANAGEMENT TRAINEE CENTER [facility] Comment: The results from this [...] (Blood, 02/13/2019 4:25 PM 02/14/19 20 Venous) OPERATIONS MANAGEMENT TRAINEE 12:28 PM OPERATIONS MANAGEMENT TRAINEE Katty Rojas APRN, CNP LAB BLOOD ORDERABLES Performing Organization Address [facility] Phon e Number [facility] [address] [place] [phone] Ferritin (02/13/2019 4:25 PM OPERATIONS MANAGEMENT TRAINEE) athologist Signature Ferritin 42 6 - 137 02/14/2019 [facility] ng/mL 2:10 PM OPERATIONS MANAGEMENT TRAINEE [facility]ENTER [facility] Comment: The results from this [...] Laterality Blood (Blood, 02/13/2019 4:25 PM 02/14/19 Venous) OPERATIONS MANAGEMENT TRAINEE 12:28 PM OPERATIONS MANAGEMENT TRAINEE Katty Rojas APRN, CNP LAB BLOOD ORDERABLES Performing Organization Address [facility] Phon e Number [facility] [address] [place] [address] Vitamin D, Total (02/13/2019 4:25 PM OPERATIONS MANAGEMENT TRAINEE) athologist Signature Vitamin D, 37.9 ng/mL 02/14/2019 [facility] Total 1:17 PM OPERATIONS MANAGEMENT TRAINEE [facility]ENTER [facility] Comment: Deficient ?<20 ? ng/mL Insufficient ? 20-<30 ??ng/mL Sufficient ? 30-100 ??ng/mL Vitamin D2/D3 fractionation is recommend ed at the discretion of the clinician if Total Vitamin D is w ithin deficient or insufficient range. Specimen Anatomical Collection Method Collection Time Receive d Time (Source) Location / / Volume Laterality Blood 02/13/2019 4:25 PM 0 OPERATIONS MANAGEMENT TRAINEE 12:16 PM OPERATIONS MANAGEMENT TRAINEE Katty Rojas APRN, FIXTURE BUILDER LAB BLOOD ORDERABLES Performing Organization Address City/State/ZIP Code Phon e Number [facility] [address] [place] [phone] documented in this encounter Visit Diagnoses Diagnosis S/P laparoscopic sleeve gastrectomy Morbid obesity (HCC) Morbid obesity Hyperlipidemia, unspecified hyperlipidem ia type documented in this encounter Care Teams Puppy Trainer Relationship Specialty Start Date End Date Katty Rojas APRN, FIXTURE BUILDER PCP - General 09/11/17 10/13/19 [address] [place] [address] documented as of this encounter
--- OUTSIDE RECORDS SUMMARY | 2021-12-12 09:57 | XMS_ITS | Encounter Summary ---
:1975 Author Organization [facility] Address [address] [place] [address] Care Team Providers Name Role Phone Katty Rojas APRN, FILLER SHREDDING MACHINE LOADER Primary Care Provider [phone] Encounter Details Date Type Department Care Team Description 02/10/2019 Lab [place] Essential hypertension [address] [place], [place] [address] Social History Tobacco Use [...] at Date Recorded Female 04/13/2021 4:03 PM FORK TRUCK OPERATOR documented as of this encounter Plan of Treatment Not on filedocumented as of this encounter Procedures Procedure Name Priority Date/Time Associated Diagnosis Comme nts GLOMERULAR Routine 02/10/2019 3:47 PM Essential Results f or this FILTRATION RATE FORK TRUCK OPERATOR hypertension procedure ar e in the results section. BASIC METABOLIC Routine 02/10/2019 3:47 PM Essential Result s for this PANEL FORK TRUCK OPERATOR hypertension procedure are i n the results section. documented in this encounter Results Glomerular filtration rate (GFR) (02/10/2019 3:47 PM FORK TRUCK OPERATOR) P athologist Signature GFR >60 02/10/2019 [facility] 4:11 PM FORK TRUCK OPERATOR CENTER LAB[facility] >60 02/10/2019 [facility] [place] GFR 4:11 PM FORK TRUCK OPERATOR CENTER [facility] Comment: GFR calculated from serum creatinine v alue Chronic Kidney Disease less than 60 mL/m in/1.73 m2 Kidney Failure less than 15 mL/min/1.73 m2 Note: effective 06/20/06 IDMS-Traceable MDRD Study Equation used. Specimen Anatomical Collection Method Collection Time Receive d Time (Source) Location / / Volume Laterality 02/10/2019 3:47 PM 0 3:47 FORK TRUCK OPERATOR PM FORK TRUCK OPERATOR Katty Rojas APRN, CNP LAB BLOOD ORDERABLES Performing Organization Address City/[facility]/ZIP Code Phon e Number [facility] [address] [place] [address] (ABNORMAL) Basic metabolic panel (02/10/2019 3:47 PM FORK TRUCK OPERATOR) P athologist Signature Sodium 141 135 - 145 02/10/2019 [facility] mmol/L 4:11 PM FORK TRUCK OPERATOR [facility]ALL[facility] Potassium 3.8 3.5 - 5.1 02/10/2019 [facility] mmol/L 4:11 PM FORK TRUCK OPERATOR [facility]ALLS Comment: . Chloride 104 98 - 107 mmol/L 02/10/2019 4:11 PM FORK TRUCK OPERATOR [facility] Comment: . CO2 30 (H) 22 - 29 mmol/L 02/10/2019 4:11 PM FORK TRUCK OPERATOR [facility] Comment: . Creatinine 0.8 0.4 - 1.2 mg/dL 02/10/2019 4:11 PM FORK TRUCK OPERATOR [facility] Comment: . BUN 21 5 - 25 mg/dL 02/10/2019 4:11 PM FORK TRUCK OPERATOR [facility] Comment: . Glucose 105 (H) 70 - 100 mg/dL 02/10/2019 4:11 PM FORK TRUCK OPERATOR [facility] Calcium, Total,S 9.7 8.4 - 10.2 mg/dL 02/10/2019 4:11 PM FORK TRUCK OPERATOR [facility] Comment: . Fasting? No 02/10/2019 3:49 PM FORK TRUCK OPERATOR [facility] Specimen Anatomical Collection Method Collection Time Receive d Time (Source) Location / / Volume Laterality Blood 02/10/2019 3:47 PM 0 3:49 FORK TRUCK OPERATOR PM FORK TRUCK OPERATOR Katty Rojas APRN, CNP LAB BLOOD ORDERABLES Performing Organization Address City/[facility]/ZIP Code Phon e Number [facility] [place] [address] [place] [address] documented in this encounter Visit Diagnoses Diagnosis Essential hypertension Unspecified essential hypertension documented in this encounter Care Teams Freezer Person Relationship Specialty Start Date End Date Katty Rojas, TELEVISION AUDIO ENGINEER, FILLER SHREDDING MACHINE LOADER PCP - General 09/11/17 10/13/19 100 [facility] [place] [facility] [address] documented as of this encounter
--- OUTSIDE RECORDS SUMMARY | 2021-12-12 09:57 | XMS_ITS | Encounter Summary ---
:1975 Author Organization [facility] Address [address] [place] [address] Care Team Providers Name Role Phone Katty Rojas SENIOR ENGINEERING ASSOCIATE, KERFER MACHINE OPERATOR Primary Care Provider [phone] Reason for Visit Reason Onset Date Comments medication prior auth 09/01/2019 Venlafaxine HCl ER 150MG er capsules Encounter Details Date Type Department Care Team Description 09/01/2019 Telephone Mi-Pay Katty Rojas, medication prior auth [address] SENIOR ENGINEERING ASSOCIATEHERBERT Clancy (Venlafaxine HCl ER [place], [place] [address] [address] 150MG er capsules) [phone] [place], [place] [address] Social History Tobacco Use [...] at Date Recorded Female 04/13/2021 4:03 PM GAGE MAKER documented as of this encounter Miscellaneous Notes Telephone Encounter - Donna Hood MA - 09/01/2019 10:17 AM CDT PA is approved from 08/30/2019 - 08/29/2020 Pharmacy was notified. Telephone Encounter - Donna Hood MA - 09/01/2019 8:02 AM CDT Venlafaxine HCl ER 150MG er capsules BIN: [id number] PCN: [facility] GROUP: [id number] PLAN: [employer] [place] PHONE: [phone] ID: [id number] PA has been completed via CMM sent to plan. [place]: [id number] documented in this encounter Plan of Treatment Not on filedocumented as of this encounter Visit Diagnoses Not on filedocumented in this encounter Care Teams Software Recruiter Relationship Specialty Start Date End Date Katty Rojas APRN, KERFER MACHINE OPERATOR PCP - General 09/11/17 10/13/[address] [place] [address] [place] [address] documented as of this encounter
--- OUTSIDE RECORDS SUMMARY | 2021-12-12 09:57 | XMS_ITS | Encounter Summary ---
:1975 Author Organization [facility] Address [address] [place] [address] Care Team Providers Name Role Phone Katty Rojas SUPERVISOR MIRROR FABRICATION, MACHINE COMPOSITOR Primary Care Provider [phone] Reason for Visit Reason Onset Date Comments medication prior auth. 05/24/2018 Venlafaxine HCl E R 150MG er capsules Encounter Details Date Type Department Care Team Description 05/24/2018 Telephone [place] Katty Rojas, medication prior auth. [address] HERBERT ZAVALA (Venlafaxine HCl ER [place], [place] [address] 150MG er capsules) [phone] [place], [place] [address] Social History Tobacco Use [...] at Date Recorded Female 04/13/2021 4:03 PM CASH CLERK documented as of this encounter Miscellaneous Notes Telephone Encounter - Rachael Rene MA - 05/27/2018 7:13 AM CDT PA approved from 05/23/2018 - 05/24/2019. Pharmacy is notified. Case ID: [id number]. Telephone Encounter - Rachael Rene MA - 05/24/2018 9:42 AM CDT Venlafaxine HCl ER 150MG er capsules BIN: [id number] PCN: GROUP: [id number] PLAN: [employer] [place] PHONE: [phone] ID: [id number] PA completed per CMM, sent to plan. [place]: [id number]. documented in this encounter Plan of Treatment Not on filedocumented as of this encounter Visit Diagnoses Not on filedocumented in this encounter Care Teams Benzene Washer Operator Relationship Specialty Start Date End Date Katty Rojas, SUPERVISOR MIRROR FABRICATION, MACHINE COMPOSITOR PCP - General 09/11/17 10/13/19 100 [facility] [place] [address] documented as of this encounter
--- OUTSIDE RECORDS SUMMARY | 2021-12-12 09:57 | XMS_ITS | Encounter Summary ---
:1975 Author Organization [facility] Address [address] [place] [address] Care Team Providers Name Role Phone Katty Rojas APRN, CNP Primary Care Provider [phone] Encounter Details Date Type Department Care Team Description 05/23/2018 Telephone [place] Katty Rojas, [address] HERBERT ZAVALA [place], [place] [address] 100 [facility] [phone] [place], [place] [address] Social History Tobacco Use [...] at Date Recorded Female 04/13/2021 4:03 PM CEMENT PRODUCTION PLANT OPERATOR documented as of this encounter Miscellaneous Notes Telephone Encounter - Katty Rojas APRN, CNP - 05/23/2018 4:29 PM CDT Called in a prescription for Wellbutrin 300 mg capsule, 1 capsule daily, quantity 90 capsules for 90day, with 3 refills, into [facility]. documented in this encounter Plan of Treatment Not on filedocumented as of this encounter Visit Diagnoses Not on filedocumented in this encounter Care Teams Field Agronomist Relationship Specialty Start Date End Date Katty Rojas APRN, CNP PCP - General 09/11/17 10/13/19 [address] [place] [address] documented as of this encounter
--- OUTSIDE RECORDS SUMMARY | 2021-12-12 09:57 | XMS_ITS | Encounter Summary ---
:1975 Author Organization [facility] Address [address] [place] [address] Care Team Providers Name Role Phone Katty Rojas APRN, CNP Primary Care Provider Encounter Details Date Type Department Care Team Description 05/21/2018 Orders Only Katty Chao, Depression, [address] HERBERT ZAVALA unspecified [place] [address] depression type [address] [place] [address] Social History Tobacco Use Types Packs/Day Years [...] at Date Recorded Female 04/13/2021 4:03 PM DYNAMOTOR REPAIRER documented as of this encounter Plan of Treatment Not on filedocumented as of this encounter Visit Diagnoses Diagnosis Depression, unspecified depression type documented in this encounter Care Teams Boiler Riveter Relationship Specialty Start Date End Date Katty Rojas, LUCAS, HERBERT PCP - General 09/11/17 10/13/19 [address] [place] [address] documented as of this encounter
--- OUTSIDE RECORDS SUMMARY | 2021-12-12 09:57 | XMS_ITS | Encounter Summary ---
:1975 Author Organization [facility] Address [address] [place] [address] Care Team Providers Name Role Phone None, Pcp Primary Care Provider Unavailable Encounter Details Date Type Department Care Team Description 02/13/2020 Travel Social History Tobacco Use Types Packs/Day Years [...] at Date Recorded Female 04/13/2021 4:03 PM OUTREACH REP documented as of this encounter Plan of Treatment Not on filedocumented as of this encounter Visit Diagnoses Not on filedocumented in this encounter Care Teams Emergency Veterinary Technician Relationship Specialty Start Date End Date None, Pcp PCP - General Personal Property Assessor 12/01/19 02/25/20 [address] [place] [address] documented as of this encounter
--- OUTSIDE RECORDS SUMMARY | 2021-12-12 09:57 | XMS_ITS | Encounter Summary ---
:1975 Author Organization [facility] Address [address] [place] [address] Care Team Providers Name Role Phone None, Pcp Primary Care Provider Unavailable Encounter Details Date Type Department Care Team Description 12/01/2019 Travel Social History Tobacco Use Types Packs/Day [...] at Date Recorded Female 04/13/2021 4:03 PM PHP PROGRAMMER documented as of this encounter Plan of Treatment Not on filedocumented as of this encounter Visit Diagnoses Not on filedocumented in this encounter Care Teams Guest History Clerk Relationship Specialty Start Date End Date None, Pcp PCP - General Hockey Scout 12/01/19 02/25/[address] [place] [phone] documented as of this encounter
--- OUTSIDE RECORDS SUMMARY | 2021-12-12 09:57 | XMS_ITS | Encounter Summary ---
:1975 Author Organization [facility] Address [address] [place] [address] Care Team Providers Name Role Phone None, Pcp Primary Care Provider Unavailable Encounter Details Date Type Department Care Team Description 02/13/2020 Procedure visit SE Internal Medicine Palpitations [address] [place] [address] Social History Tobacco Use Types Packs/Day Years [...] at Date Recorded Female 04/13/2021 4:03 PM SPORTS PSYCHOLOGIST documented as of this encounter Progress Notes Nirali Shearer LPN - 02/13/2020 11:40 AM CST Nurse Procedure Note Procedures ECG completed ECG transmitted to Cardiology Previous ECG noted 01/12/16 N/S rhythm Pt denies Chest pain, palpitations, SOB today. Code R55 TS PSYCHOLOGIST Ashely Peterson MD - 02/13/2020 11:40 AM CST Please call patient and notify that her EKG result showed a few very minor changes which mean it would be a good idea to meet with a relocation commissioner, especially considering her symptoms of palpitations recently. Referral was placed -- they should be calling her to make an appointment in the next couple weeks. Thanks - CM TS PSYCHOLOGIST Sabiha Duke RN - 02/13/2020 11:40 AM CST Advised and stated understanding. TS PSYCHOLOGIST documented in this encounter Plan of Treatment Not on filedocumented as of this encounter Procedures Procedure Name Priority Date/Time Associated Diagnosis Comme nts ECG 12-LEAD Routine 02/13/2020 12:00 AM SPORTS PSYCHOLOGIST Palpitations documented in this encounter Results ECG 12 lead (02/13/2020 12:00 AM SPORTS PSYCHOLOGIST) Narrative This result has an attachment that is no t available. Ashely Peterson MD ECG ORDERABLES documented in this encounter Visit Diagnoses Diagnosis Palpitations documented in this encounter Care Teams Cleaning And Washing Equipment Operator Relationship Specialty Start Date End Date None, Pcp PCP - General Medical Collector 12/01/19 02/25/[address] [place] [phone] documented as of this encounter
--- OUTSIDE RECORDS SUMMARY | 2021-12-12 09:57 | XMS_ITS | Encounter Summary ---
:1975 Author Organization [facility] Address [address] [place] [address] Care Team Providers Name Role Phone Katty Rojas APRN, CNP Primary Care Provider [phone] Encounter Details Date Type Department Care Team Description 05/23/2018 Orders Only Katty Chao, Depression, [address] HERBERT ZAVALA unspecified [place] [address] [place] [address] [place] [address] Social History Tobacco Use Types Packs/Day Years [...] at Date Recorded Female 04/13/2021 4:03 PM TERRAZZO TILE MAKER documented as of this encounter Plan of Treatment Not on filedocumented as of this encounter Visit Diagnoses Diagnosis Depression, unspecified depression type documented in this encounter Care Teams Ed Educational Aide Relationship Specialty Start Date End Date Katty Rojas, LUCAS, HERBERT PCP - General 09/11/17 10/13/19 [address] [place] [address] documented as of this encounter
--- OUTSIDE RECORDS SUMMARY | 2021-12-12 09:57 | XMS_ITS | Encounter Summary ---
:1975 Author Organization [facility] Address [address] [place] [address] Care Team Providers Name Role Phone Katty Rojas DAIRY EQUIPMENT REPAIRER, PARKING ENFORCEMENT SPECIALIST Primary Care Provider [phone] Reason for Visit Reason Onset Date Comments Hypertension Registry 01/20/2019 Encounter Details Date Type Department Care Team Description 01/20/2019 [place] Hypertension Registry [address] DAIRY EQUIPMENT REPAIRER, PARKING ENFORCEMENT SPECIALIST [place] [address] [address] [facility] [address] [phone] [place], [place] [address] Social History Tobacco Use [...] at Date Recorded Female 04/13/2021 4:03 PM CHIEF RADIOLOGY documented as of this encounter Miscellaneous Notes Telephone Encounter - Marleen Bond - 02/03/2019 3:17 PM CST Patient is scheduled for lab work and appointment. F RADIOLOGY Telephone Encounter - Celi Monson LPN - 01/20/2019 3:36 PM CST The patient is due for a BMP non fasting lab (which is ordered) and a visit with Nando three days later to review Hypertension. F RADIOLOGY documented in this encounter Plan of Treatment Not on filedocumented as of this encounter Visit Diagnoses Not on filedocumented in this encounter Care Teams Underwater Hunter Trapper Relationship Specialty Start Date End Date Katty Rojas APRN, PARKING ENFORCEMENT SPECIALIST PCP - General 09/11/17 10/13/19 100 [facility] [place] [address] documented as of this encounter
--- OUTSIDE RECORDS SUMMARY | 2021-12-12 09:57 | XMS_ITS | Encounter Summary ---
:1975 Author Organization [facility] Address [address] [place] [address] Care Team Providers Name Role Phone Katty Rojas APRN, CNP Primary Care Provider [phone] Encounter Details Date Type Department Care Team Description 05/15/2018 Orders Only Katty Chao, Depression, [address] HERBERT ZAVALA [place] [address] [place] type [address] [place] [address] Social History Tobacco Use Types Packs/Day Years [...] at Date Recorded Female 04/13/2021 4:03 PM VAMP LINER documented as of this encounter Plan of Treatment Not on filedocumented as of this encounter Visit Diagnoses Diagnosis Depression, unspecified depression type documented in this encounter Care Teams Security System Administrator Relationship Specialty Start Date End Date Katty Rojas, LUCAS, HERBERT PCP - General 09/11/17 10/13/19 [address] [place] [address] documented as of this encounter
--- OUTSIDE RECORDS SUMMARY | 2021-12-12 09:57 | XMS_ITS | Encounter Summary ---
:1975 Author Organization [facility] Address [address] [place] [address] Care Team Providers Name Role Phone None, Pcp Primary Care Provider Unavailable Reason for Referral Consultation (Routine) - Closed Specialty Diagnoses / Procedures Referred By Contact Refer red To Contact Cardiology Diagnoses Right bundle branch block (RBBB) determined by electrocardiography Ashely Peterson N[facility] [address] [place] [address] [address] [place] [address] [place], [place] Phone: [phone] Fax: Referral ID Status Reason Start Date Expiration Date Visits V isits Requested Authorized [id number] Closed Specialty 02/13/2020 02/12/2021 1 1 Services Required Scheduling Instructions Please call the Communications Strategist nickie simpson at [phone] ext. [phone] to schedule an appointment. RIALS PLANNING MANAGER Encounter Details Date Type Department Care Team Description 02/13/2020 Orders Only [facility] Women's Health Ashely Peterson Right bundle branch block [facility] MD Roberta (RBBB) det ermined by Dance Artist electrocardiography [address] [facility] (Primary Dx) [place], [place] [id number] Social History Tobacco Use Types Packs/Day Years [...] at Date Recorded Female 04/13/2021 4:03 PM MATERIALS PLANNING MANAGER documented as of this encounter Progress Notes Ashely Peterson MD - 02/13/2020 1:43 PM CST EKG reviewed -- Borderline EKG with possible RBBB. Referral to cardiology placed. Ashely Peterson MD RIALS PLANNING MANAGER documented in this encounter Plan of Treatment Scheduled Referrals Name Type Priority Associated Diagnoses Order S [facility] Ambulatory Outpatient Routine Right bundle branch block Or dered: referral to Referral (RBBB) determined by 021 Cardiology electrocardiography documented as of this encounter Visit Diagnoses Diagnosis Right bundle branch block (RBBB) determi vidal by electrocardiography - Primary documented in this encounter Care Teams Office 365 Consultant Relationship Specialty Start Date End Date None, Pcp PCP - General Chain Carrier 12/01/19 02/25/20 [address] [place] [address] documented as of this encounter
--- OUTSIDE RECORDS SUMMARY | 2021-12-12 09:57 | XMS_ITS | Encounter Summary ---
:1975 Author Organization [facility] Address [address] [place] [address] Care Team Providers Name Role Phone Katty Rojas APRN, SPECTACLE TRUER Primary Care Provider [phone] Encounter Details Date Type Department Care Team Description 02/10/2019 Orders Only [place] Essential hypertension [address] [place], HERBERT ZAVALA (Primary Dx) [place] 100 [facility] [address] [place] [address] Social History Tobacco Use Types Packs/Day Years [...] at Date Recorded Female 04/13/2021 4:03 PM PROTECTION MANAGER documented as of this encounter Plan of Treatment Not on filedocumented as of this encounter Results (ABNORMAL) Basic metabolic panel (02/10/2019 3:47 PM PROTECTION MANAGER) P athologist Signature Sodium 141 135 - 145 02/10/2019 [facility] mmol/L 4:11 PM PROTECTION MANAGER [place] Potassium 3.8 3.5 - 5.1 02/10/2019 [facility] mmol/L 4:11 PM PROTECTION MANAGER [place] Comment: . Chloride 104 98 - 107 mmol/L 02/10/2019 4:11 PM PROTECTION MANAGER [facility] Comment: . CO2 30 (H) 22 - 29 mmol/L 02/10/2019 4:11 PM PROTECTION MANAGER [facility] Comment: . Creatinine 0.8 0.4 - 1.2 mg/dL 02/10/2019 4:11 PM PROTECTION MANAGER [facility] [place] Comment: . BUN 21 5 - 25 mg/dL 02/10/2019 4:11 PM PROTECTION MANAGER [facility] [place] Comment: . Glucose 105 (H) 70 - 100 mg/dL 02/10/2019 4:11 PM PROTECTION MANAGER [facility] [place] Calcium, Total,S 9.7 8.4 - 10.2 mg/dL 02/10/2019 4:11 PM PROTECTION MANAGER [facility] [place] Comment: . Fasting? No 02/10/2019 3:49 PM PROTECTION MANAGER [facility] CAN NON FALLS Specimen Anatomical Collection Method Collection Time Receive d Time (Source) Location / / Volume Laterality Blood 02/10/2019 3:47 PM 0 3:49 PROTECTION MANAGER PM PROTECTION MANAGER Katty Rojas APRN, SPECTACLE TRUER LAB BLOOD ORDERABLES Performing Organization Address City/State/ZIP Code Phon e Number [facility] [address] [place] [address] documented in this encounter Visit Diagnoses Diagnosis Essential hypertension - Primary Unspecified essential hypertension documented in this encounter Care Teams Fruit Tester Relationship Specialty Start Date End Date Katty Rojas APRN, SPECTACLE TRUER PCP - General 09/11/17 10/13/19 100 [facility] [place] [address] documented as of this encounter
--- OUTSIDE RECORDS SUMMARY | 2021-12-12 09:58 | XMS_ITS | Encounter Summary ---
:1975 Author Organization [facility] Address [address] [place] [address] Care Team Providers Name Role Phone Unavailable Primary Care Provider Unavailable Reason for Visit Outpatient (Routine) - Closed Specialty Diagnoses / Procedures Referred By Contact Refer red To Contact Infectious Diseases Diagnoses Pneumonia Due To COVID-19 Rosa Yepez M.D. [facility] Procedures Infectious Diseases - General eConsult [address] [place] [phone] Referral ID Status Reason Start Date Expiration Date Visits Requ ested Visits Authorized [id number] Closed 11/19/2020 11/19/2021 1 1 Encounter Details Date Type Department Care Team Description 11/22/2020 Internal E-Consult Section of Justin Yepez M.D. [address] [place] [phone] Pneumonia Due To Infectious Diseases Jose Sotomayor M.D. [address] [place] [phone] COVID-19 in [place], [place] [address] [place] [phone] Social History Tobacco Use Types Packs/Day Years Used Date Smoking Tobacco: Never Smokeless Tobacco: Never Alcohol Use Standard Drinks/Week Comments Not Currently 0 (1 standard drink = 0.6 oz pure alcoho l) twice a year Alcohol Habits Answer Date Recorded How often do you have a drink containing alcohol? Never 11/19/2020 How many drinks containing alcohol do you have on a typical Not asked day when you are drinking? How often do you have six or more drinks on one occasion? No t asked Sex Assigned at Date Recorded Not on file documented as of this encounter Consult Notes Jose Sotomayor M.D. - 11/22/2020 4:00 PM CDT The patient was not personally interviewed or examined. The history and examination findings are based on the clinical documentation provided and/or discussed with a physician or provider who had personally interviewed and examined the patient. Referring Physician: Rosa Yepez M.D. [facility] ED CHIEF COMPLAINT / REASON FOR VISIT Mirella Edwards is a 45 y.o. female. HISTORY OF PRESENT ILLNESS Ms. Mirella Edwards is a 45-year-old female with history of asthma who was diagnosed with COVID elsewhere November 16, 2020. She apparently presented to [facility] emergency room November 19 complaining of headache, diarrhea and shortness of breath. Evaluation was not performed. Past medical history 1. Anxiety 2. Palpitations 3. History of severe obesity with weight 128 kg more than 30 days ago with BMI greater than 50 4. Hypertension 5. Hyperlipidemia 6. Depression ASSESSMENT / PLAN 1. COVID-19 infection diagnosed November 16, 2020 2. High risk for COVID-19 progression the setting of a BMI 50-59 in asthma Discussion 1. The patient is an excellent candidate for COVID 19 monoclonal antibody therapy 2. I discussed the situation with the convalescent plasma treatment group here: They recommended changing the patient's infection flag to active COVID infection. This should flag the patient for screening COVID-19 monoclonal therapy in summary from that team should reach out to the patient to offer the patient COVID-19 medical antibiotic therapy. Jose Sotomayor MD Infectious Diseases documented in this encounter Plan of Treatment Not on filedocumented as of this encounter Visit Diagnoses Diagnosis Pneumonia Due To COVID-19 documented in this encounter Additional Health Concerns Infection Onset Date Last Indicated Resolved Time COVID19 11/22/2020 11/22/2020 12/12/2020 4:47 AM SHOW OPERATIONS SUPERVISOR Assessment Noted Time PHQ-9 Depression Total Score: 9 06/06/2013 4:40 PM CDT documented as of this encounter
--- OUTSIDE RECORDS SUMMARY | 2021-12-12 09:58 | XMS_ITS | Encounter Summary ---
:1975 Author Organization [facility] Address [address] [place] [address] Care Team Providers Name Role Phone Unavailable Primary Care Provider Unavailable Reason for Visit Reason Comments Patient Education Encounter Details Date Type Department Care Team Description 11/22/2020 Clinical Communication Department of Fatmata De La Paz ent Education Infusion Therapy [place], [place] [address] [place] [address] Social History Tobacco Use Types Packs/Day Years [...] on file documented as of this encounter Plan of Treatment Not on filedocumented as of this encounter Visit Diagnoses Not on filedocumented in this encounter Additional Health Concerns Infection Onset Date Last Indicated Resolved Time COVID19 11/22/2020 11/22/2020 12/12/2020 4:47 AM SORTING COWS WORKER Assessment Noted Time PHQ-9 Depression Total Score: 9 06/06/2013 4:40 PM CDT documented as of this encounter
--- OUTSIDE RECORDS SUMMARY | 2021-12-12 09:58 | XMS_ITS | Encounter Summary ---
:1975 Author Organization [facility] Address [address] [place] [address] Care Team Providers Name Role Phone Katty Rojas APRN, CNP Primary Care Provider [phone] Encounter Details Date Type Department Care Team Description 03/29/2018 Orders Only Katty Chao, Depression, [address] HERBERT ZAVALA unspecified [place] [address] [place] type [id number] [place] [address] (Primary Dx) [phone] Social History Tobacco Use Types Packs/Day Years [...] at Date Recorded Female 04/13/2021 4:03 PM CORE OVEN TENDER documented as of this encounter Progress Notes Katty Rojas APRN, CNP - 03/29/2018 12:54 PM CST Okay let me just pull this up here then OVEN TENDER documented in this encounter Plan of Treatment Not on filedocumented as of this encounter Visit Diagnoses Diagnosis Depression, unspecified depression type - Primary documented in this encounter Care Teams Color Coater Relationship Specialty Start Date End Date Katty Rojas APRN, CNP PCP - General 09/11/17 10/13/[address] [place] [address] documented as of this encounter
--- OUTSIDE RECORDS SUMMARY | 2021-12-12 09:58 | XMS_ITS | Clinical Summary ---
:1975 Author Organization [facility] Address [address] [place] [address] Care Team Providers Name Role Phone Unavailable Primary Care Provider Unavailable Source Comments Patient records contain information from all sites at [facility]. For routine questions regarding patient records, call [phone] during business hours, M-F 8:00 AM - 5:00 PM Central Time. Record requests for emergency care only can be directed to [phone] at any time.[facility] Allergies Active Allergy Reactions Severity Noted Date Comments Codeine Other (see comments) 11/19/2020 Patient doesn't remember things, feel d runk Pollen Extracts Shortness of breath 11/19/2020 Medications Medication Sig Dispensed Refills Start Date End Date Status venlafaxine XR Take 150 mg by 0 Active (EFFEXOR-XR) 150 mg 24 mouth daily with hr capsule breakfast. albuterol 90 Inhale 2 puffs. 0 09/02/2013 Active mcg/actuation inhaler diclofenac sodium Take 1 tablet by 0 09/02/2013 Active (VOLTAREN XR) 100 mg 24 mouth daily. hr tablet norethindrone (AYGESTIN) Take 5 mg by 0 05/13/2020 Active 5 mg tablet mouth. verapamiL (CALAN-SR) 120 Take 120 mg by 0 05/13/2020 Active mg ER tablet mouth. Active Problems Problem Noted Date COVID-19 Infection 11/21/2020 Overview: Formatting of this note might be differe nt from the original. 11/16/20 Anxiety 11/19/2020 Elevated Blood Pressure Without Hypertension Stress 03/10/2020 Abnormal Electrocardiogram 03/09/2020 Palpitations 03/09/2020 Abnormal Uterine And Vaginal Bleeding Unspecified 11/06 Excessive And Frequent Menstruation With Irregular Cyc le 12/01/2019 Morbid Obesity Body Mass Index 45.0-49.9 Adult 020 Hyperlipidemia 03/15/2017 Hypertension 03/15/2017 Depressive Disorder 05/03/2013 Overview: Depressive Disorder, Not Elsewhere Class ified Depressive disorder, not elsewhere class ified Dysthymia 10/03/2010 Overview: Dysthymic Disorder Asthma NOS 04/12/2010 Overview: Asthma, Unspecified no known date of onset Immunizations Name Administration Dates Next Due Influenza, Unspecified 11/26/2018, 12/06/2015, 12/02/2014, 12/03/2013, 12/04/2012, 12/05/2011, 12/20/2010, 01/26/2009 Tetanus Toxoid, Adsorbed 04/11/2006 (discontinued) Family History Medical History Relation Name Comments Stroke Grandmother Relation Name Status Comments Grandmother Social History Tobacco Use Types Packs/Day Years [...] Assigned at Date Recorded Not on file Last Filed Vital Signs Vital Sign Reading Time Taken Comments Blood Pressure 136/85 11/19/2020 6:00 PM CDT Pulse 93 11/19/2020 6:00 PM CDT Temperature 37.1 ??C (98.8 ??F) 11/19/2020 4:00 PM CDT Respiratory Rate 18 11/19/2020 2:33 PM CDT Oxygen Saturation 99% 11/19/2020 6:00 PM CDT Inhaled Oxygen Concentration - - Weight 128 kg (283 lb 1.1 oz) 09/02/2013 10:24 AM CDT Height 161 cm (5' 3.39) 12/27/2015 11:20 AM COMIC ARTIST Body Mass Index 49.53 09/02/2013 10:24 AM CDT Plan of Treatment Health Maintenance Due Date Last Done Comments CT Colonography 1975 Cologuard 1975 Colonoscopy 1975 Colorectal Cancer Screening 1975 Depression Monitoring (PHQ-9) 1975 FIT 1975 HIV Screening 1975 Hepatitis C Screening 1975 Mammogram 1975 Office Visit for Blood Pressure 1975 Check / Re-check COVID-19 Vaccine (#1) 02/10/1976 Pneumococcal vaccine (0-64 years) 08/09/1981 (1 - PCV) Hepatitis B Vaccines (3 of 3 - 19+ 10/27/1996 05/27/1996, 0 04/23/1996 3-dose series) Cervical Cancer Screening 08/17/2014 08/18/2011 Asthma Action Plan 01/04/2020 09/02/2013 Asthma Control Test Questionnaire 01/04/2020 09/02/2013 Lipid (Cholesterol) Screening 03/05/2021 03/05/2020, 2019, 04/11/2018 Influenza Vaccine (#1) 2021 11/26/2018, 11/26/2018, 11/30/2017, Additional history exists Fasting Glucose for Diabetes 11/20/2023 11/19/2020, 021, Screening 06/27/2012, Additional history exists DTaP,Tdap,and Td Vaccines (2 - Td 09/21/2027 09/20/2017, or Tdap) Insurance Payer Benefit Plan Subscriber ID Effective Dates Phone Address Type / Group [employer] [place] [id number] 2017-Presen [phone] [address] [address] PPO BLUE SHIELD t [address] [place] [address] (Home) [place] [id number]
--- OUTSIDE RECORDS SUMMARY | 2021-12-12 09:58 | XMS_ITS | Encounter Summary ---
:1975 Author Organization [facility] Address [address] [place] [address] Care Team Providers Name Role Phone Katty Rojas APRN, MANUFACTURERS AGENT Primary Care Provider [phone] Encounter Details Date Type Department Care Team Description 04/11/2018 Lab [place] Teresa S/P laparoscopic sleeve krista rectomy; [address] Morbid obesity (HCC) [place], [place] [address] Social History Tobacco Use [...] at Date Recorded Female 04/13/2021 4:03 PM PASSENGER SCREENER documented as of this encounter Plan of Treatment Not on filedocumented as of this encounter Procedures Procedure Name Priority Date/Time Associated Diagnosis Comme nts GLOMERULAR FILTRATION Routine 04/11/2018 3:36 S/P laparoscopic Results for this RATE PM PASSENGER SCREENER sleeve gastrecto my procedure are in Morbid obesity (HCC) the res ults section. 25-HYDROXYVITAMIN D2 Routine 04/11/2018 3:36 S/P laparoscopic Results for this AND D3, S PM PASSENGER SCREENER sleeve gastrecto my procedure are in Morbid obesity (HCC) the res ults section. VITAMIN B1, WHOLE Routine 04/11/2018 3:36 S/P laparoscopic Res ults for this BLOOD PM PASSENGER SCREENER sleeve gastrecto my procedure are in Morbid obesity (HCC) the res ults section. VITAMIN A Routine 04/11/2018 3:36 S/P laparoscopic Results for this PM PASSENGER SCREENER sleeve gastrecto my procedure are in Morbid obesity (HCC) the res ults section. INSULIN, SERUM Routine 04/11/2018 3:36 S/P laparoscopic Result s for this PM PASSENGER SCREENER sleeve gastrecto my procedure are in Morbid obesity (HCC) the res ults section. CBC Routine 04/11/2018 3:36 S/P laparoscopic Results for this PM PASSENGER SCREENER sleeve gastrecto my procedure are in Morbid obesity (HCC) the res ults section. VITAMIN B6 Routine 04/11/2018 3:36 S/P laparoscopic Results for this PM PASSENGER SCREENER sleeve gastrecto my procedure are in Morbid obesity (HCC) the res ults section. IRON Routine 04/11/2018 3:36 S/P laparoscopic Results for this PM PASSENGER SCREENER sleeve gastrecto my procedure are in Morbid obesity (HCC) the res ults section. FOLATE Routine 04/11/2018 3:36 S/P laparoscopic Results for this PM PASSENGER SCREENER sleeve gastrecto my procedure are in Morbid obesity (HCC) the res ults section. FERRITIN Routine 04/11/2018 3:36 S/P laparoscopic Results for this PM PASSENGER SCREENER sleeve gastrecto my procedure are in Morbid obesity (HCC) the res ults section. VITAMIN B12 Routine 04/11/2018 3:36 S/P laparoscopic Results for this PM PASSENGER SCREENER sleeve gastrecto my procedure are in Morbid obesity (HCC) the res ults section. LIPID PANEL Routine 04/11/2018 3:36 S/P laparoscopic Results for this PM PASSENGER SCREENER sleeve gastrecto my procedure are in Morbid obesity (HCC) the res ults section. COMPREHENSIVE Routine 04/11/2018 3:36 S/P laparoscopic Results for this METABOLIC PANEL PM PASSENGER SCREENER sleeve gastrecto my procedure are in Morbid obesity (HCC) the res ults section. documented in this encounter Results Glomerular filtration rate (GFR) (04/11/2018 3:36 PM PASSENGER SCREENER) P athologist Signature GFR >60 04/11/2018 [facility] 7:24 PM PASSENGER SCREENER [facility] >60 04/11/2018 [facility] [place] GFR 7:24 PM P[facility]ENGER SCREENER [facility] Comment: GFR calculated from serum creatinine v alue Chronic Kidney Disease less than 60 mL/m in/1.73 m2 Kidney Failure less than 15 mL/min/1.73 m2 Note: effective 06/20/06 IDMS-Traceable MDRD Study Equation used. Specimen Anatomical Collection Method Collection Time Receive d Time (Source) Location / / Volume Laterality 04/11/2018 3:36 PM 9 3:36 PASSENGER SCREENER PM PASSENGER SCREENER Outside Referring Lab Provider LAB BLOOD ORDERABLES Performing Organization Address City/State/ZIP Code Phon e Number [facility] [address] [place] [phone] Insulin, serum (04/11/2018 3:36 PM PASSENGER SCREENER) athologist Signature Insulin 4.9 2.6 - 24.9 04/12/2018 [facility] mcIU/mL 2:55 PM PASSENGER SCREENER LABORATORIES Comment: Test Performed by: [facility] [address] [place], [place] [address] Specimen Anatomical Collection Method Collection Time Receive d Time (Source) Location / / Volume Laterality Blood (Blood, 04/11/2018 3:36 PM 04/12/19 19 Venous) PASSENGER SCREENER 10:13 PM PASSENGER SCREENER Outside Referring Lab Provider LAB BLOOD ORDERABLES Performing Organization Address City/[facility]/ZIP Code Phon e Number [facility] see result attachment for specific address Vitamin B12 (04/11/2018 3:36 PM PASSENGER SCREENER) athologist Signature Vitamin B-12 074 888 - 420 04/11/2018 [facility] pg/mL 8:42 PM PASSENGER SCREENER [facility] Comment: The results from this [...] Location / / Volume Laterality Blood (Blood, 04/11/2018 3:36 PM 04/12/19 19 6:52 Venous) PASSENGER SCREENER PM PASSENGER SCREENER Outside Referring Lab Provider LAB BLOOD ORDERABLES Performing Organization Address City/[facility]/ZIP Code Phon e Number [facility] [address] [place] [phone] Vitamin B6 (04/11/2018 3:36 PM PASSENGER SCREENER) athologist Signature Pyridoxal 6 5 - 50 04/16/2018 [facility] 5-Phosphate mcg/L 1:34 AM CDT LABORATORIES Comment: ADDITIONAL INFORMATIO N This test was developed and its performa nce characteristics determined by [facility] in a manner co nsistent with CLIA requirements. This test has not been leobardo ared or approved by the U.S. Food and Drug Administration. Test Performed by: [facility] [place] [id number] Specimen Anatomical Collection Method Collection Time Receive d Time (Source) Location / / Volume Laterality Blood (Blood, 04/11/2018 3:36 PM 04/12/19 19 9:13 Venous) PASSENGER SCREENER PM PASSENGER SCREENER Outside Referring Lab Provider LAB BLOOD ORDERABLES Performing Organization Address City/[facility] Phon e Number [facility] see result attachment for specific address Vitamin A (04/11/2018 3:36 PM PASSENGER SCREENER) athologist Signature Free Retinol 32.9 32.5 - 04/16/2018 [facility] (Vit A) 78.0 2:30 AM CDT LABORATORIES mcg/dL Comment: ADDITIONAL INFORMATIO N This test was developed and its performa nce characteristics determined by [facility] in a manner co nsistent with CLIA requirements. This test has not been leobardo ared or approved by the U.S. Food and Drug Administration. Test Performed by: [facility] [place] [address] [address] Specimen Anatomical Collection Method Collection Time Receive d Time (Source) Location / / Volume Laterality Blood (Blood, 04/11/2018 3:36 PM 04/12/19 19 9:13 Venous) PASSENGER SCREENER PM PASSENGER SCREENER Outside Referring Lab Provider LAB BLOOD ORDERABLES Performing Organization Address [facility] Code Phon e Number [facility] see result attachment for specific address Vitamin B1, whole blood (04/11/2018 3:36 PM PASSENGER SCREENER) athologist [facility] Thiamin TNP 04/12/2018 [facility] (Vitamin B1) 3:40 PM PASSENGER SCREENER LABORATORIES Comment: Thiamin (Vitamin B1), WB was cancelled o n 04/12/2018 at 15:38; Specimen received refrigerated - must be sent frozen on dry ice. Test Performed by: [facility] [address] [place], [place] [address] Specimen Anatomical Collection Method Collection Time Receive d Time (Source) Location / / Volume Laterality Blood (Blood, 04/11/2018 3:36 PM 04/12/19 19 Venous) PASSENGER SCREENER 10:13 PM PASSENGER SCREENER Outside Referring Lab Provider LAB BLOOD ORDERABLES Performing Organization Address City/[facility]/ZIP Code Phon e Number [facility] see result attachment for specific address Iron (04/11/2018 3:36 PM PASSENGER SCREENER) [facility] Iron (FE) 52 37 - 170 04/11/2018 [facility] mcg/dL 7:27 PM PASSENGER SCREENER [facility] Specimen Anatomical Collection Method Collection Time Receive d Time (Source) Location / / Volume Laterality Blood (Blood, 04/11/2018 3:36 PM 04/12/19 19 6:52 Venous) PASSENGER SCREENER PM PASSENGER SCREENER Outside Referring Lab Provider LAB BLOOD ORDERABLES Performing Organization Address City/[facility]/ZIP Code Phon e Number [facility] [address] [place] [phone] Folate (04/11/2018 3:36 PM PASSENGER SCREENER) athologist [facility] Folate >20.0 >=2.8 ng/mL 04/11/2018 [facility] 8:42 PM PASSENGER SCREENER [facility] Comment: The results from this [...] Location / / Volume Laterality Blood (Blood, 04/11/2018 3:36 PM 04/12/19 19 6:52 Venous) PASSENGER SCREENER PM PASSENGER SCREENER Outside Referring Lab Provider LAB BLOOD ORDERABLES Performing Organization Address [facility] Phon e Number [facility] [address] [place] [address] Ferritin (04/11/2018 3:36 PM PASSENGER SCREENER) athologist Signature Ferritin 47 6 - 137 04/11/2018 [facility] ng/mL 8:41 PM PASSENGER SCREENER [facility] Comment: The results from this [...] Location / / Volume Laterality Blood (Blood, 04/11/2018 3:36 PM 04/12/19 19 6:52 Venous) PASSENGER SCREENER PM PASSENGER SCREENER Outside Referring Lab Provider LAB BLOOD ORDERABLES Performing Organization Address City/[facility] Phon e Number [facility] [address] [place] [address] 25-Hydroxyvitamin D2 and D3, S (VITAD) (04/11/2018 3:36 PM PASSENGER SCREENER) athologist Signature 25-Hydroxy D2 <4.0 ng/mL 04/16/2018 [facility] 2:58 PM CDT LABORATORIES 25-Hydroxy D3 58 ng/mL 04/16/2018 [facility] 2:58 PM CDT LABORATORIES Vit D, 58 ng/mL 04/16/2018 [facility] 25-Hydroxy 2:58 PM CDT LABORATORIES Comment: Interpretation: 51-80 ng/mL (increased r isk of hypercalciuria) REFERENCE VALUE------ 25-HYDROXY D TOTAL (D2+D3) Optimum level s in the healthy population are 20-50, patients with bone disease may benefit from higher levels within this r jesse. ADDITIONAL INFORMATIO N This test was developed and its performa nce characteristics determined by [facility] in a manner co nsistent with CLIA requirements. This test has not been leobardo ared or approved by the U.S. Food and Drug Administration. Test Performed by: [facility] [address] [place], [place] [address] Specimen Anatomical Collection Method Collection Time Receive d Time (Source) Location / / Volume Laterality Blood (Blood, 04/11/2018 3:36 PM 04/12/19 19 9:13 Venous) PASSENGER SCREENER PM PASSENGER SCREENER Outside Referring Lab Provider LAB BLOOD ORDERABLES Performing Organization Address City/State/ZIP Code Phon e Number [facility] see result attachment for specific address (ABNORMAL) Lipid panel (04/11/2018 3:36 PM PASSENGER SCREENER) P athologist Signature Cholesterol 199 0 - 199 04/11/2018 [facility] mg/dL 7:24 PM [facility] Comment: Recommended by National Cholesterol Education Program (ATP III) -------- Cholesterol Ranges -------- <200 ? Desirable 200-239 ? Borderline high >=240 ? High Triglycerides 75 0 - 149 mg/dL 04/11/2018 7:24 PM [facility] Comment: -------- TRIG Ranges -------- <150 ?Normal 150-199 ? Borderline high 200-499 ? High >=500 ? Very high HDL 40 40 - 60 mg/dL 04/11/2018 7:24 PM [facility] Comment: -------- HDL Ranges -------- <40 ?Low 40-59 ?Normal >=60 ? Optimal LDL Calculated 144 (A) 0 - 99 mg/dL 04/11/2018 7:24 PM [facility] Comment: -------- LDL Ranges -------- <100 ? Optimal 100-129 ?Near optimal/above op timal 130-159 ?Borderline high 160-189 ?High >=190 ?Very high Specimen Anatomical Collection Method Collection Time Receive d Time (Source) Location / / Volume Laterality Blood (Blood, 04/11/2018 3:36 PM 04/12/19 19 6:52 Venous) PASSENGER SCREENER PM PASSENGER SCREENER Outside Referring Lab Provider LAB BLOOD ORDERABLES Performing Organization Address City/State/ZIP Code Phon e Number [facility] [address] [place] [phone] Comprehensive metabolic panel (04/11/2018 3:36 PM [facility]) P athologist Signature Total Protein 7.4 6.3 - 8.2 04/11/2018 [facility] g/dL 7:24 PM [facility] Albumin, Serum 4.4 3.5 - 5.0 04/11/2018 [facility] g/dL 7:24 PM [facility] Total Bilirubin <0.7 0.1 - 1.0 04/11/2018 [facility] mg/dL 7:24 PM [facility] AST 21 8 - 43 U/L 04/11/2018 [facility] 7:24 PM [facility] Alkaline 89 38 - 128 04/11/2018 [facility] Phosphatase U/L 7:24 PM [facility] ALT (SGPT) 30 0 - 34 U/L 04/11/2018 [facility] 7:24 PM [facility] Comment: NOTE: Normal range change effective 01/06 Sodium 139 135 - 145 mEq/L 04/11/2018 7:24 PM [facility] Potassium 3.8 3.5 - 5.1 mEq/L 04/11/2018 7:24 PM [facility] Chloride 103 98 - 107 mEq/L 04/11/2018 7:24 PM [facility] CO2 27 22 - 29 mmol/L 04/11/2018 7:24 PM [facility] BUN 15 5 - 25 mg/dL 04/11/2018 7:24 PM [facility] Creatinine 0.7 0.4 - 1.2 mg/dL 04/11/2018 7:24 PM [facility] Glucose 85 70 - 100 mg/dL 04/11/2018 7:24 PM [facility] Calcium, Total,S 9.4 8.4 - 10.2 mg/dL 04/11/2018 7:24 PM [facility] Fasting? Yes 04/11/2018 3:43 PM [facility] Specimen Anatomical Collection Method Collection Time Receive d Time (Source) Location / / Volume Laterality Blood (Blood, 04/11/2018 3:36 PM 04/12/19 19 6:52 Venous) PASSENGER SCREENER PM PASSENGER SCREENER Outside Referring Lab Provider LAB BLOOD ORDERABLES Performing Organization Address City/State/ZIP Code Phon e Number [facility] [address] [place] [phone] CBC ([employer]) (04/11/2018 3:36 PM PASSENGER SCREENER) P athologist Signature WBC 6.4 3.5 - 10.5 04/11/2018 [facility] [place] K/uL 3:59 PM PASSENGER SCREENER [place] RBC 4.24 3.90 - 5.00 04/11/2018 [facility] [place] M/uL 3:59 PM PASSENGER SCREENER [place] Hemoglobin 12.8 12.0 - 15.5 04/11/2018 [facility] [place] g/dL 3:59 PM PASSENGER SCREENER [place] Hematocrit 39.5 35.0 - 44.0 04/11/2018 [facility] [place] % 3:59 PM PASSENGER SCREENER [place] Platelets 383 150 - 450 04/11/2018 [facility] [place] K/uL 3:59 PM PASSENGER SCREENER [place] MCV 93.2 81.6 - 98.3 04/11/2018 [facility] [place] fL 3:59 PM PASSENGER SCREENER [place] MCH 30.2 26.0 - 32.0 04/11/2018 [facility] [place] pg 3:59 PM PASSENGER SCREENER [place] MCHC 32.4 32.0 - 36.0 04/11/2018 [facility] g/dL 3:59 PM PASSENGER SCREENER [place] RDW 13.4 11.9 - 15.5 04/11/2018 [facility] [place] % 3:59 PM PASSENGER SCREENER [place] Specimen Anatomical Collection Method Collection Time Receive d Time (Source) Location / / Volume Laterality Blood (Blood, 04/11/2018 3:36 PM 04/12/19 19 3:43 Venous) PASSENGER SCREENER PM PASSENGER SCREENER Outside Referring Lab Provider LAB BLOOD ORDERABLES Performing Organization Address City/State/ZIP Code Phon e Number [facility] [place] [address] [place] [phone] documented in this encounter Visit Diagnoses Diagnosis S/P laparoscopic sleeve gastrectomy Morbid obesity (HCC) Morbid obesity documented in this encounter Care Teams Lithographed Plate Inspector Relationship Specialty Start Date End Date Katty Rojas, TOOL MECHANIC, MANUFACTURERS AGENT PCP - General 09/11/17 10/13/19 [address] [facility] [place] [address] documented as of this encounter
--- OUTSIDE RECORDS SUMMARY | 2021-12-12 09:58 | XMS_ITS | Encounter Summary ---
:1975 Author Organization [facility] Address [address] [place] [address] Care Team Providers Name Role Phone Katty Rojas APRN, COTTON BAG SEWER Primary Care Provider [phone] Encounter Details Date Type Department Care Team Description 04/01/2018 Orders Only BillingsKatty Ramirez, [address] INSTRUCTION ASSISTANT PRINCIPAL, [place] [address] [address] [facility] [address] [phone] [place] [address] Social History Tobacco Use Types [...] at Date Recorded Female 04/13/2021 4:03 PM POSTAL SORTING OFFICER documented as of this encounter Plan of Treatment Not on filedocumented as of this encounter Visit Diagnoses Not on filedocumented in this encounter Care Teams Log Rafter Relationship Specialty Start Date End Date Katty Rojas, LUCAS, COTTON BAG SEWER PCP - General 09/11/17 10/13/[address] [place] [address] documented as of this encounter
--- OUTSIDE RECORDS SUMMARY | 2021-12-12 09:58 | XMS_ITS | Encounter Summary ---
:1975 Author Organization [facility] Address [address] [place] [address] Care Team Providers Name Role Phone Unavailable Primary Care Provider Unavailable Reason for Referral Outpatient (Routine) - Closed Specialty Diagnoses / Procedures Referred By Contact Refer red To Contact Infectious Diseases Diagnoses Pneumonia Due To COVID-19 Rosa Yepez M.D. [facility] Procedures Infectious Diseases - General eConsult [address] [place] [phone] Referral ID Status Reason Start Date Expiration Date Visits Requ ested Visits Authorized [id number] Closed 11/19/2020 11/19/2021 1 1 Reason for Visit Reason Comments Difficulty Breathing Encounter Details Date Type Department Care Team Description 11/19/2020 Emergency [facility] Rosa Yepez Pneu monia Due To Emergency Department Dave COVID-19 (Primary Dx) [address] [place] [address] [address] [place] [phone] Social History Tobacco Use Types Packs/Day Years [...] on file documented as of this encounter Last Filed Vital Signs Vital Sign Reading Time Taken Comments Blood Pressure 136/85 11/19/2020 6:00 PM CDT Pulse 93 11/19/2020 6:00 PM CDT Temperature 37.1 ??C (98.8 ??F) 11/19/2020 4:00 PM CDT Respiratory Rate 18 11/19/2020 2:33 PM CDT Oxygen Saturation 99% 11/19/2020 6:00 PM CDT Inhaled Oxygen Concentration - - Weight - - Height - - Body Mass Index - - documented in this encounter Discharge Instructions AttachmentsThe following attachments cannot be sent through Care Everywhere. COVID-19 (Monegasque)documented in this encounter Medications at Time of Discharge Medication Sig Dispensed Refills Start Date End Date albuterol 90 mcg/actuation Inhale 2 puffs. 0 08/06 inhaler diclofenac sodium (VOLTAREN Take 1 tablet by 0 XR) 100 mg 24 hr tablet mouth daily. norethindrone (AYGESTIN) 5 Take 5 mg by mouth. 0 05/13/2020 mg tablet venlafaxine XR (EFFEXOR-XR) Take 150 mg by mouth 0 150 mg 24 hr capsule daily with breakfast. verapamiL (CALAN-SR) 120 mg Take 120 mg by 0 09/2020 ER tablet mouth. documented as of this encounter ED Notes Rosa Yepez M.D. - 11/19/2020 5:17 PM CDT SUBJECTIVE CHIEF COMPLAINT/REASON FOR VISIT Difficulty Breathing HISTORY OF PRESENT ILLNESS Patient is a 45-year-old woman who is not COVID vaccinated who comes in with a history of a positiveCOVID test done 3 days ago now with worsening shortness of breath and increasing body aches and fatigue. She does have a history of asthma which is not severe or moderately severe. Manages it only withinhalers. She continues to cough. REVIEW OF SYSTEMS Constitutional: Positive for chills. Negative for fever. HENT: Negative for congestion and sore throat. Eyes: Negative for pain. Respiratory: Positive for cough and shortness of breath. Cardiovascular: Negative for chest pain. Gastrointestinal: Positive for nausea. Negative for abdominal pain, diarrhea and vomiting. Genitourinary: Negative for dysuria and hematuria. Musculoskeletal: Positive for myalgias. Skin: Negative for rash. Neurological: Negative for headaches. OBJECTIVE Initial Vitals Temperature Pulse Rate Heart Rate Resp Rate Blood Pressure SpO2 11/19/20 1216 11/19/20 1216 -- 11/19/20 1216 11/19/20 1216 11/19/20 1216 37.2 ??C 103 20 (!) 150/103 95 % Pain Score 11/19/20 1217 7 PHYSICAL EXAMINATION Constitutional: Nursing note and vitals reviewed. HENT: Nose: Nose normal. Mouth/Throat: Mucous membranes are dry. Eyes: Conjunctivae and EOM are normal. Neck: Neck supple. Cardiovascular: Regular rhythm. Tachycardia present. Capillary refill: takes less than 3 seconds, Pulmonary/Chest: Effort normal. No respiratory distress. She exhibits no retraction. Abdominal: Soft. There is no abdominal tenderness. There is no rebound and no guarding. Musculoskeletal: General: No deformity. Normal range of motion. Cervical back: Normal range of motion and neck supple. Neurological: Alert and oriented to person, place, and time. Skin: Skin is warm and dry. No rash noted. Psychiatric: She has a normal mood and affect. Behavior is normal. ASSESSMENT/PLAN IMPRESSION AND PLAN Patient 45-year-old woman with a history of asthma who comes in now with worsening symptoms and diagnosis of COVID made 3 days ago. In triage she had labs and a chest x-ray which revealed some subtle bilateral opacities consistent with COVID pneumonia. She is doing well from a symptomatic perspective in terms of her saturations. Not significantly tachypneic and keep her saturations above 94% with ambulation. She does get quite tachycardic and does look dry and I suspect need some IV fluids. We will treat her with IV fluids and I am speaking with Medicine to see whether she is a candidate for monoclonal antibody therapy and short visit stay. By criteria her MASS score is actually 0. And she does not meet criteria for remote outpatient monitoring. ED Course as of 11/24/20 1536 SunNov 19, 2020 1550 White Blood Cell Count(!): 3.1 1550 Lymphocytes(!): 0.88 1550 Creatinine, P: 0.64 1551 Comparison with radiograph dated 12/14/2009. Subtle patchy bilateral airspace opacities may represent inflammatory or infectious process including COVID-19 pneumonia. No pneumothorax or pleural effusion. 1551 D-Dimer, P: 391 1551 pH, Venous, POCT, B: 7.41 1551 pCO2, Venous, POCT, B: 42 1551 Glucose, POCT, B: 102 1551 Hematocrit, POCT, B: 44.0 1551 SpO2: 96 % 1551 SpO2: 95 % 1557 Comparison with radiograph dated 12/14/2009. Subtle patchy bilateral airspace opacities may represent inflammatory or infectious process including COVID-19 pneumonia. No pneumothorax or pleural effusion. 1648 We did a quick ambulatory check of patient's saturations in the room. Oxygenation did not drop her heart rate did rise to 120. She is currently getting fluids. 181 I spoke with the MO D and reviewed the monoclonal antibody guidelines and patient does not qualify for this. Plan will be for clear instructions for return and I have asked for an infectious disease e-consult Final Diagnoses: as of 11/24/20 1536 Pneumonia Due To COVID-19 Rosa Yepez M.D. 11/24/20 1536 Trang Jimenez R.N. - 11/19/2020 12:17 PM CDT Patient presented to ER c/o increasing COVID symptoms. Patient tested positive on Sunday. She continues to have a headache, diarrhea and SOB. Patient reports hx of asthma. She took Tylenol at 0900. Patient is here for further evaluation. Trang Jimenez R.N. 11/19/20 1218 documented in this encounter Plan of Treatment Not on filedocumented as of this encounter Procedures Procedure Name Priority Date/Time Associated Comments Diagnosis DX CHEST AP OR PA RAD - Semiurgent 11/19/2020 1:02 Res ults for this AND LATERAL 2 (Fast; most ED PM CDT procedure ar e in VIEWS patients; some the results inpatients) section. VBG & LYTES CG8+, Routine 11/19/2020 12:47 Result s for this POCT, B PM CDT procedure are i n the results section. BLOOD GAS, POCT, STAT 11/19/2020 12:46 Results for this B PM CDT procedure are i n the results section. D-DIMER, P STAT 11/19/2020 12:45 Results for this PM CDT procedure are i n the results section. CBC WITH STAT 11/19/2020 12:45 Results for this DIFFERENTIAL, B PM CDT procedure ar e in the results section. BASIC METABOLIC STAT 11/19/2020 12:45 Results for this PANEL, S/P PM CDT procedure are i n the results section. documented in this encounter Results DX Chest AP or PA and Lateral 2 Views (11/19/2020 1:02 PM CDT) Anatomical Region Laterality Modality Chest, Thoracic RST LOS, Thoracic ARZ LOS, Thoracic N/A Digital Radiography FLA LOS Specimen (Source) Anatomical Collection Method Collection Time Re ceived Time Location / / Volume Laterality 11/19/2020 1:13 PM CDT Impressions 11/19/2020 1:14 PM CDT Comparison with radiograph dated 12/14/2009. Subtle patchy bilateral airspace opacities may represe nt inflammatory or infectious process including COVID-19 pneumonia. No pneumot horax or pleural effusion. Narrative 11/19/2020 1:14 PM CDT EXAM: ??DX CHEST AP OR PA AND LATERAL 2 VIEWS Procedure Note Bhanu Arevalo M.D. - 11/19/2020Fo rmatting of this note might be different from the original. EXAM: DX CHEST AP OR PA AND LATERAL 2 EWS IMPRESSION: Comparison with radiograph dated 010. Subtle patchy bilateral airspace opacities may represe nt inflammatory or infectious process including COVID-19 pneumonia. No pneumot horax or pleural effusion. Rosa [facility] PROCE DURES (ABNORMAL) Venous Blood Gas and Electrolytes CG8+, POCT (11/19/2020 12:47 PM CDT) P athologist Signature Sample Site, Venstick 11/19/2020 PCSM POCT 2:47 PM CDT Comment: ----ADDITIONAL INFORMATION---- Performed at the Point of Care pH, Venous, POCT, B 7.41 7.32 - 7.43 11/19/2020 2:47 PM CDT PCSM Comment: ----ADDITIONAL INFORMATION---- Performed at the Point of Care pCO2, Venous, POCT, B 42 41 - 51 mm Hg 11/19/2020 2:4 7 PM CDT PCSM Comment: ----ADDITIONAL INFORMATION---- Performed at the Point of Care pO2, Venous, POCT, B 29 Not Applicable mm Hg 11/20/19 2:47 PM CDT PCSM Comment: ----ADDITIONAL INFORMATION---- Performed at the Point of Care Base Excess, Venous, POCT, B 2 Not Applicable mmol/L 11/19/2020 2:47 PM CDT PCSM Comment: ----ADDITIONAL INFORMATION---- Performed at the Point of Care HCO3, Venous, POCT, B 27 Not Applicable mmol/L 2020 2:47 PM CDT PCSM Comment: ----ADDITIONAL INFORMATION---- Performed at the Point of Care Sodium, POCT, B 143 135 - 145 mmol/L 11/19/2020 2:47 P M CDT PCSM Comment: ----ADDITIONAL INFORMATION---- Performed at the Point of Care Potassium, POCT, B 3.7 3.6 - 5.2 mmol/L 11/19/2020 2:4 7 PM CDT PCSM Comment: ----ADDITIONAL INFORMATION---- Performed at the Point of Care Calcium, Ionized, POCT, B 4.50 (L) 4.65 - 5.30 mg/dL 2:47 PM CDT PCSM Comment: ----ADDITIONAL INFORMATION---- Performed at the Point of Care Glucose, POCT, B 102 70 - 140 mg/dL 11/19/2020 2:47 PM CDT PCSM Comment: ----ADDITIONAL INFORMATION---- Performed at the Point of Care Hematocrit, POCT, B 44.0 35.5 - 44.9 % 11/19/2020 2:47 PM CDT PCSM Comment: ----ADDITIONAL INFORMATION---- Performed at the Point of Care Specimen Anatomical Collection Method Collection Time Receive d Time (Source) Location / / Volume Laterality Blood 11/19/2020 12:47 11/19/2020 2:47 PM CDT PM CDT Unknown Provider LAB POCT ORDERABLES - DEVICE Performing Organization Address City/[facility]/ZIP Code Phon e Number POC RST [facility] IN[facility]IENT [address] [place], [place] [address] LABS PCSM [facility] [place] [address] [place] POC [address] [facility] Venous Blood Gas and Electrolytes, POCT (11/19/2020 12:46 PM CDT) Analysis Performed At Patho logist Time Signature ABG and Lytes, Collected DEFAULT 11/19/2020 SMLX POCT, B 12:46 PM CDT Specimen Anatomical Collection Method Collection Time Receive d Time (Source) Location / / Volume Laterality Blood (Other, 11/19/2020 12:46 11/19/2020 Specify in PM CDT 12:46 PM CDT Comments) Bhanu Russo M.D. LAB POCT ORDERABLES - DEVICE Performing Organization Address City/[facility]/ZIP Code Phon e Number [facility] - 200 [place], [place] [address] [facility] [place] [address] [facility] [address] [facility] D-Dimer (11/19/2020 12:45 PM CDT) P athologist Signature D-Dimer, P 391 <=500 ng/mL 11/19/2020 [facility] FEU 1:05 PM CDT Comment: ----ADDITIONAL INFORMATION---- D-dimer values less than or equal to 500 ng/mL fibrinogen equivalent units (FEU) may be used in co njunction with clinical pre-test probability to exclude deep vein thrombosis (DVT) and/or pulmonary emboli sm (PE). Specimen Anatomical Collection Method Collection Time Receive d Time (Source) Location / / Volume Laterality Blood (Blood, 11/19/2020 12:45 11/19/2020 Venous) PM CDT 12:52 PM CDT Bhanu Russo M.D. LAB BLOOD ADD-ON Performing Organization Address City/[facility]/ZIP Code Phon e Number [facility] - 200 [place], [place] [address] [facility] [place] [address] [facility] 200 [place] (ABNORMAL) CBC with Differential, Blood (11/19/2020 12:45 PM CDT) [facility] Method Time Signature Hemoglobin 15.0 11.6 - 11/19/2020 [facility] 15.0 g/dL 12:55 PM CDT Hematocrit 44.6 35.5 - 11/19/2020 [facility] 44.9 % 12:55 PM CDT Erythrocytes 4.91 3.92 - 11/19/2020 [facility] 5.13 12:55 PM CDT x10(12)/L MCV 90.8 78.2 - 11/19/2020 [facility] 97.9 fL 12:55 PM CDT RBC Distrib Width 13.8 12.2 - 11/19/2020 [facility] 16.1 % 12:55 PM CDT Platelet Count 191 157 - 371 11/19/2020 [facility] x10(9)/L 12:55 PM CDT Leukocytes 3.1 (L) 3.4 - 9.6 11/19/2020 [facility] x10(9)/L 12:55 PM CDT Neutrophils 2.11 1.56 - 11/19/2020 [facility] 6.45 2:12 PM CDT x10(9)/L Comment: Rechecked Lymphocytes 0.88 (L) 0.95 - 3.07 x10(9)/L 11/19/2020 2:12 P M CDT [facility] Monocytes 0.11 (L) 0.26 - 0.81 x10(9)/L 11/19/2020 2:12 PM CDT [facility] Eosinophils <0.03 0.03 - 0.48 x10(9)/L 11/19/2020 2:12 P M CDT [facility] Basophils <0.03 0.01 - 0.08 x10(9)/L 11/19/2020 2:12 PM CDT [facility] Specimen Anatomical Collection Method Collection Time Receive d Time (Source) Location / / Volume Laterality Blood (Blood, 11/19/2020 12:45 11/19/2020 Venous) PM CDT 12:52 PM CDT Bhanu Russo M.D. LAB BLOOD ADD-ON Performing Organization Address City/State/ZIP Code Phon e Number [facility] - [address] [place], [place] [address] [facility] [place] [address] [facility] 200 [place] Basic Metabolic Panel (11/19/2020 12:45 PM CDT) P athologist Signature Potassium, P 3.8 3.6 - 5.2 11/19/2020 [facility] mmol/L 1:16 PM CDT Comment: Serum used for analysis Sodium, P 139 135 - 145 mmol/L 11/19/2020 1:16 PM CDT [facility] Chloride, P 104 98 - 107 mmol/L 11/19/2020 1:16 PM CDT [facility] Bicarbonate, P 23 22 - 29 mmol/L 11/19/2020 1:16 PM C DT [facility] Anion Gap, P 12 7 - 15 11/19/2020 1:16 PM CDT [facility] BUN (Blood Urea Nitrogen), P 6 6 - 21 mg/dL 11/20/19 21 1:16 PM CDT [facility] Creatinine 0.64 0.59 - 1.04 mg/dL 11/19/2020 1:16 PM CD T [facility] eGFR-Black/ >90 >=60 mL/min/BSA 2020 1:16 PM CDT [facility] Comment: ----ADDITIONAL INFORMATION---- Estimated GFR calculated using the 2009 CKD_EPI creatinine equation. eGFR Non-Black/ >90 >=60 mL/min/BSA 11/19/2020 1:16 PM CDT ST[facility] Comment: ----ADDITIONAL INFORMATION---- Estimated GFR calculated using the 2009 CKD_EPI creatinine equation. Calcium, Total, P 8.7 8.6 - 10.0 mg/dL 11/19/2020 1:16 PM CDT ST[facility] Glucose, P 103 70 - 140 mg/dL 11/19/2020 1:16 PM CDT S TMA Specimen Anatomical Collection Method Collection Time Receive d Time (Source) Location / / Volume Laterality Blood (Blood, 11/19/2020 12:45 11/19/2020 Venous) PM CDT 12:52 PM CDT Bhanu Russo M.D. LAB BLOOD ADD-ON Performing Organization Address City/State/ZIP Code Phon e Number [facility] - [address] [place], [place] [address] [facility] [place] [address] [facility] [address] documented in this encounter Visit Diagnoses Diagnosis Pneumonia Due To COVID-19 - Primary documented in this encounter Administered Medications Inactive Administered Medications - up to 3 most recent administrations Medication Order MAR Action Action Date Dose Rate Site NaCl 0.9 % bolus 1,000 mL New Bag 11/19/2020 4:42 PM CDT 1,000 mL 1000 mL/hr 1,000 mL, intravenous, at 1,000 mL/hr, Administer over 1 Hours, Once, On Sun11/19/20 at 1637, For 1 dose NaCl 0.9 % bolus 1,000 mL New Bag 11/19/2020 6:01 PM CDT 1,000 mL 1000 mL/hr 1,000 mL, intravenous, at 1,000 mL/hr, Administer over 1 Hours, Once, On Sun11/19/20 at 1802, For 1 dose documented in this encounter Active and Recently Administered Medications Times are shown in CDT. Scheduled Medication Order 11/17/2020 11/18/2020 11/19/2020 NaCl 0.9 % bolus 1,000 mL (COMPLETED) 1642 (New Bag - Provider: Garcia Rosario RDevynN.)1741 (Stopped - Provider: Garcia Rosario R.N.) 1,000 mL, intravenous, at 1,000 mL/hr, A dminister over 1 Hours, Once, On Sun11/19/20 at 1637, For 1 dose NaCl 0.9 % bolus 1,000 mL (COMPLETED) 1801 (New Bag - Provider: Garcia Rosario R.N.)1820 (Stopped - Provider: Garcia Rosario RLibby. - Comment: pressure bagged in) 1,000 mL, intravenous, at 1,000 mL/hr, A dminister over 1 Hours, Once, On Sun11/19/20 at 1802, For 1 dose documented in this encounter Additional Health Concerns Infection Onset Date Last Indicated Resolved Time COVID19 Pending 11/19/2020 11/19/2020 11/19/2020 4:03 PM CDT Assessment Noted Time PHQ-9 Depression Total Score: 9 06/06/2013 4:40 PM CDT documented as of this encounter
--- OUTSIDE RECORDS SUMMARY | 2021-12-12 09:58 | XMS_ITS | Encounter Summary ---
:1975 Author Organization [facility] Address [address] [place] [address] Care Team Providers Name Role Phone Unavailable Primary Care Provider Unavailable Encounter Details Date Type Department Care Team Description 01/04/2020 Admin Visit Department of Family Medicine, [facility] [place] in [place], [place] [address] [place] [phone] Social History Tobacco Use Types Packs/Day Years Used Date Smoking Tobacco: Never Sex Assigned at Date Recorded Not on file documented as of this encounter Plan of Treatment Not on filedocumented as of this encounter Visit Diagnoses Not on filedocumented in this encounter Additional Health Concerns Infection Onset Date Last Indicated Resolved Time COVID19 Pending 01/04/2020 01/04/2020 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
--- OUTSIDE RECORDS SUMMARY | 2021-12-12 09:58 | XMS_ITS | Encounter Summary ---
:[address] [facility] Address [address] [place] [address] Care Team Providers Name Role Phone Unavailable Primary Care Provider Unavailable Reason for Visit Reason Comments Patient Education Monoclonal Antibody Infusion Education Encounter Details Date Type Department Care Team Description 11/24/2020 Clinical Department of Юлия Le Educat ion Communication Infusion Therapy Amelia Sy (Monoclonal in [place], Antibody Infus ion [place] ([facility]) Education) [address] [place] [phone] Social History Tobacco Use Types Packs/Day Years [...] on file documented as of this encounter Miscellaneous Notes Telephone Encounter - Adela Le R.N. - 11/24/2020 9:31 AM CDT SUBJECTIVE CHIEF COMPLAINT / REASON FOR CALL Patient Education (Monoclonal Antibody Infusion Education) Patient stated first symptoms were mild congestion, tiredness and feeling of allergies on 11/11/20. Full symptoms began on 11/13/20 with SOB, coughing, weakness, diarrhea, body aches, headache, coughing and exhaustion starting then. Patient is thus not eligible for infusion as her symptom start is outside of the 10 day window for protocol of administration of monoclonal antibodies. [place] notified. Patient today stated the following symptoms: Dry mouth, lips, she does not know the color of her urine, as her toilet water is blue. She has extreme weakness when she stands. It is difficult for her to walk to the bathroom, she becomes hot and sweats at times. It is exhausting to ambulate and she has shortness of breath. She has had diarrhea for9 days. Her diarrhes seemed to end yesterday and she has had no episodes today. She has not eaten today, yet. She had 1/4 cup of mashed potatoes and some gravy yesterday. She has no appetite. She has not eaten much during her COVID illness. She said she is drinking as best as she can, but probably not enough. She is drinking some orange juice in addition to water. She has chest tightness, and it feels like somebody is sitting on it; I get a burning feeling when I cough. She said her Fitbit HR is 101. She is short of breath when she walks to the bathroom, it has worsened a little bit since she was seen in the ED 11/19/20. She said overall I am a little bit worse since then, in terms of all of her symptoms. Patient was advised to be seen in the ER as she does not have a primary care provider, per [facility] Telephone Triage protocols. She agreed to go. Her is available to assist her. Her son is available to drive her and she stated she does not feel well enough to drive. PLAN Disposition/Recommendation: recommended to report to the nearest emergency department. Information/Education: patient/caller able to teach back. Caller agreeable to plan of care: yes. The following references were used: nursing clinical judgement, patient education resources: monoclonal antibodies for COVID-19 and Neri Telephone Triage Protocols for Nurses: Dehydration section. documented in this encounter Plan of Treatment Not on filedocumented as of this encounter Visit Diagnoses Not on filedocumented in this encounter Additional Health Concerns Infection Onset Date Last Indicated Resolved Time COVID19 11/22/2020 11/22/2020 12/12/2020 4:47 AM VALUER Assessment Noted Time PHQ-9 Depression Total Score: 9 06/06/2013 4:40 PM CDT documented as of this encounter
--- OUTSIDE RECORDS SUMMARY | 2021-12-12 09:58 | XMS_ITS | Encounter Summary ---
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 documented as of this encounter Last Filed Vital Signs Vital Sign Reading Time Taken Comments Blood Pressure 133/81 12/20/2017 4:26 PM 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 Pulse 84 12/20/2017 4:26 PM 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 Temperature - - Respiratory Rate - - Oxygen Saturation - - Inhaled Oxygen Concentration - - Weight 111 kg (244 lb 0.8 oz) 12/20/2017 4:26 PM 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
--- OUTSIDE RECORDS SUMMARY | 2021-12-12 09:58 | XMS_ITS | Encounter Summary ---
:1975 Author Organization [facility] Address [address] [place] [address] Care Team Providers Name Role Phone Unavailable Primary Care Provider Unavailable Encounter Details Date Type Department Care Team Description 05/07/2020 Orders Only [facility] PCP TH Sa alyse Miller M.D. [address] [place] [phone] (Wo rk) Social History Tobacco Use Types Packs/Day Years Used Date Smoking Tobacco: Never Sex Assigned at Date Recorded Not on file documented as of this encounter Plan of Treatment Not on filedocumented as of this encounter Visit Diagnoses Not on filedocumented in this encounter Additional Health Concerns Assessment Noted Time PHQ-9 Depression Total Score: 9 06/06/2013 4:40 PM CDT documented as of this encounter
--- OUTSIDE RECORDS SUMMARY | 2021-12-12 09:59 | XMS_ITS | Encounter Summary ---
:1975 Author Organization [facility] Address [address] [place] [address] Care Team Providers Name Role Phone Unavailable Primary Care Provider Unavailable Encounter Details Date Type Department Care Team Description 09/02/[address] [facility] Wyatt Hirsch, N.P. [address] [place] [phone] (Wo rk) Social History Tobacco Use Types Packs/Day Years Used Date Smoking Tobacco: Never Assessed Sex Assigned at Date Recorded Not on file documented as of this encounter Last Filed Vital Signs Vital Sign Reading Time Taken Comments Blood Pressure 152/98 09/02/2013 10:24 AM CDT Pulse 82 09/02/2013 10:24 AM CDT Temperature - - Respiratory Rate 20 09/02/2013 10:24 AM CDT Oxygen Saturation - - Inhaled Oxygen Concentration - - Weight 128 kg (283 lb 1.1 oz) 09/02/2013 10:24 AM CDT Height 161 cm (5' 3.39) 09/02/2013 10:24 AM CDT Body Mass Index 49.53 09/02/2013 10:24 AM CDT documented in this encounter Medications at Time of Discharge Medication Sig Dispensed Refills Start Date End Date albuterol 90 mcg/actuation Inhale 2 puffs. 0 08/06 inhaler diclofenac sodium Take 1 tablet by 0 09/02/2013 (VOLTAREN XR) 100 mg 24 hr mouth daily. tablet documented as of this encounter Progress Notes Giuliano Hirsch, N.P. - 09/02/2013 10:12 AM CDT [id number] CHIEF COMPLAINT/REASON FOR VISIT Medication renewal. HISTORY OF PRESENT ILLNESS Mirella is a 38-year-old female who is here today requesting renewals on her routine medications. She has a history of asthma that is well controlled that she uses on Ventolin sparingly for a period. HerACT score is noted to be 20 today. Her asthma action plan was completed with triggers noted to be pollen, certain odors, exercise, and pet dander. She states that her asthma has been doing well. She isalso requesting refills on her medicine that she takes for restless legs, her fluvoxamine, her diclofenac. She has a history of depression and agoraphobia with panic disorder. She reports her stress levels have been slightly increased recently due to some family issues and is requesting perhaps an increase in her medication. She otherwise denies any concerns today. MEDICATIONS Refills today on: Diclofenac 100 mg once daily. Ventolin inhaler 2 puffs 4 times a day as needed for shortness of breath. Requip 0.25 mg 1 at bedtime as needed for restless legs syndrome. Change today includes fluvoxamine is increased to 150 mg 2 capsules daily. ALLERGIES 1. Codeine. 2. Environmental. PAST MEDICAL/SURGICAL HISTORY Reviewed and unchanged. Please see EMR. VITAL SIGNS Temp 36.6, pulse 82, respirations 20, blood pressure 152/98. PHYSICAL EXAMINATION GENERAL: Mirella is alert, oriented x3. Appears in no acute distress. EARS: Were examined per her request as she had reported some discomfort in her left ear. Bilateral TMs are shiny, ardon, intact, with no erythema effusion present. Canals are clear. IMPRESSION/REPORT/PLAN 1. Asthma. 2. Low back pain. 3. History of depression. 4. Panic disorder with agoraphobia. 5. Dysthymia. PLAN: Refills are provided and medications adjusted as detailed in the medication list. I did increase her fluvoxamine to a total of 300 mg daily, but certainly we could titrate this back down as her stress level improves and she feels as though her symptoms are getting better. Reassured her that her ear looks fine today and suggested that she may have a little bit of eustachian tube dysfunction. That can be treated with a combination of antihistamines, decongestants, or saline spray. Mirella's questions have been addressed and she is agreeable to this plan of care. Mariya Lewis/vanessa Electronically Signed By: GIULIANO HIRSCH DISPATCHER MOTOR VEHICLE On: 09/12/2013 08:47 AM Source: [facility] MHSDOLBEYNONRADSYS Document Id: [id number] documented in this encounter Miscellaneous Notes Miscellaneous - Giuliano Hirsch N.P. - 09/02/2013 10:49 AM CDT Ambulatory Patient Summary [address] [id number] Visit Information Name: MIRELLA JOHNSON [facility] Number: [id number] Current Date: 09/02/2013 10:49:55 Physicians Attending Provider: GIULIANO HIRSCH NP Primary Care Provider: GIULIANO HIRSCH NP MIRELLA JOHNSONLL has been given the following list of follow-up instructions, medication list, and patient education materials: Follow-up Instructions Your Medications Here is a list of your medications. It is important to take your medications as directed. Use a pillbox or chart to help remind you to take your medications. Please let your doctor or nurse know if you have problems taking your medications. Medication/Strength How to Take Indications/Special Instructions/Comments/Notes for Patient Medication Changes/Routing albuterol (Ventolin HFA 90 mcg/inh inhalation aerosol) 2 puff(s), Inhalation, four times a day as needed for Shortness of breath / Wheezing Routed to [facility] [address] [id number] diclofenac (diclofenac sodium 100 mg oral tablet, extended release) 1 Tablet(s), Oral, once a day Routed to [facility] [address] [address] fluvoxaMINE (fluvoxaMINE 150 mg oral capsule, extended release) 2 cap, Oral, once a day (at bedtime)New Routed to [facility] [address] [address] levonorgestrel (Mirena) Implant rOPINIRole (Requip 0.25 mg oral tablet) 1 Tablet(s), Oral, once a day (at bedtime) Routed to [facility] [address] [address] Stop Taking the Following Medications: Medication list as of 09-02-13 10:49 Attention: If you have any medications at home that are not on this list, DO NOT take them until youcontact your provider for clarification. Give a copy of your medication list to your primary care provider. Update your medication list any time medications or doses are changed and carry your medication list at all times in case of emergency. Electronically Signed By: GIULIANO HIRSCH DISPATCHER MOTOR VEHICLE Signed On:02-SEP-2013 10:49:48 Your Allergies & Intolerances Substance Reaction Symptoms Category Comments codeine Drug Other Environmental Environment SEASONAL ALLERGIES Your Problem List Problem Status Onset Comments Asthma, Unspecified Active 10/03/10 no known date of onset Agoraphobia with Panic Disorder Active 10/03/10 noknown date of onset Post-traumatic stress disorder (PTSD) Active 02/05/1994 Dysthymic Disorder Active 1995 Restless legs syndrome Active 02/05/1999 Low back pain* Active 08/09/2009 Allergic Rhinitis Due to Other Allergen Active 11/02/2000 05/03/13 Allergic rhinitis due to other allergen Allergic Rhinitis Due to Pollen Active 11/02/2000 05/03/13 Allergic rhinitis due to pollen Depressive Disorder, Not Elsewhere Classified Active 08/06/2001 05/03/13 Depressive disorder, not elsewhere classified Extrinsic Asthma, Unspecified Active 08/06/2001 05/03/13 Extrinsic asthma, unspecified Obesity, Unspecified Active 04/17/2002 05/03/13 Obesity, unspecified Your Upcoming Appointments Date Time Location Reason Provider No Appointments found Attention: Contact your local Clinic if further appointment detail needed. Your Goals/Additional instructions: Source: [facility] POWERCHART Document Id: [id number] Miscellaneous - Giuliano Hirsch, N.P. - 09/02/2013 10:49 AM CDT Ambulatory Discharge Medication List [address] [place] [id number] Visit Information Name: MIRELLA JOHNSON [facility] Number: [id number] Visit Date: 09/02/2013 10:49:53 Attending Provider: GIULIANO HIRSCH NP Primary Care Provider: GIULIANO HIRSCH DISPATCHER MOTOR VEHICLE MIRELLA JOHNSON has been given the following list of medications: Your Medications It is important to take your medications as directed. Use a pill box or chart to help remind you to take your medications. Please let your doctor or nurse know if you have problems taking your medications. Medication/Strength How to Take Indications/Special Instructions/Comments/Notes for Patient Medication Changes/Routing albuterol (Ventolin HFA 90 mcg/inh inhalation aerosol) 2 puff(s), Inhalation, four times a day as needed for Shortness of breath / Wheezing Routed to [facility] [address] diclofenac (diclofenac sodium 100 mg oral tablet, extended release) 1 Tablet(s), Oral, once a day Routed to [address] [address] fluvoxaMINE (fluvoxaMINE 150 mg oral capsule, extended release) 2 cap, Oral, once a day (at bedtime)New Routed to [address] [address] levonorgestrel (Mirena) Implant rOPINIRole (Requip 0.25 mg oral tablet) 1 Tablet(s), Oral, once a day (at bedtime) Routed to [address] [address] Stop Taking the Following Medications: Medication list as of 09-02-13 10:49 Attention: If you have any medications at home that are not on this list, DO NOT take them until youcontact your provider for clarification. Give a copy of your medication list to your primary care provider. Update your medication list any time medications or doses are changed and carry your medication list at all times in case of emergency. Electronically Signed By: GIULIANO HIRSCH DISPATCHER MOTOR VEHICLE Signed On:02-SEP-2013 10:49:48 Additional Information: Source: [facility] POWERCHART Document Id: [id number] Miscellaneous - Hugo Couch L.PDevynN. - 09/02/2013 10:24 AM CDT Adult Drilling Superintendent Intake/History Adult Drilling Superintendent Intake/History Entered On: 09/02/2013 10:28 CDT Performed On: 09/02/2013 10:24 CDT by HUGO COUCH LPN Intake Chief Complaint : medication renewal. Look in left ear. feels like something is in it. Temperature Core : 36.6 DegC(Converted to: 97.9 DegF) Peripheral Pulse Rate : 82 /min Respiratory Rate : 20 /min Systolic Blood Pressure : 152 mmHg (HI) Diastolic Blood Pressure : 98 mmHg (>HHI) NIBP Mean : 116 mmHg BP Location : Left upper extremity Blood Pressure Cuff Size : Large SpO2 : 96 % Oxygen Therapy : Room air Height : 161 cm(Converted to: 5 ft 3 inch(es), 63 inch(es)) Actual Weight : 128.4 kg(Converted to: 283 lb 1 oz) Weight Source : Standing scale Dosing Weight Clinic : 128.4 kg Clinic BSA : 2.4 Body Mass Index : 49.54 kg/m2 HUGO COUCH METAL COATER OPERATOR - 09/02/2013 10:24 CDT General Info Information Given By : Patient Preferred Communication Mode : Verbal Languages : Zambian HUGO COUCH METAL COATER OPERATOR - 09/02/2013 10:24 CDT Subjective Pain Symptoms : Yes HUGO COUCH LPN - 09/02/2013 10:24 CDT Pain Pain Assessment Grid Pain 1 Location : Ear Laterality : Left HUGO COUCH LPN - 09/02/2013 10:24 CDT Dependent Habits Tobacco Use/Currently Using : No Smoking Status : Never smoker HUGO COUCH LPN - 09/02/2013 10:24 CDT Tobacco Use Grid Last Use : never HUGO COUCH [facility] - 09/02/2013 10:24 CDT Alcohol Use : No HUGO COUCH [facility] - 09/02/2013 10:24 CDT Caffeine Use Grid Caffeine Use : None HUGO COUCH [facility] - 09/02/2013 10:24 CDT Recreational Drug Use Grid Drug Use : None HUGO COUCH [facility] - 09/02/2013 10:24 CDT Source: [facility] Document Id: [id number] CDT!43 documented in this encounter Plan of Treatment Not on filedocumented as of this encounter Visit Diagnoses Not on filedocumented in this encounter Additional Health Concerns Assessment Noted Time PHQ-9 Depression Total Score: 9 06/06/2013 4:40 PM CDT documented as of this encounter
--- OUTSIDE RECORDS SUMMARY | 2021-12-12 09:59 | XMS_ITS | Encounter Summary ---
:1975 Author Organization [facility] Address [address] [place] [address] Care Team Providers Name Role Phone Unavailable Primary Care Provider Unavailable Encounter Details Date Type Department Care Team Description 12/06/2015 Hospital Encounter HX [facility] Nando Flowers, C.N.P. [address] [place] [address] (Wo rk) Social History Tobacco Use Types Packs/Day Years Used Date Smoking Tobacco: Never Assessed Sex Assigned at Date Recorded Not on file documented as of this encounter Medications at Time of Discharge Medication Sig Dispensed Refills Start Date End Date albuterol 90 mcg/actuation Inhale 2 puffs. 0 08/06 inhaler diclofenac sodium Take 1 tablet by 0 09/02/2013 (VOLTAREN XR) 100 mg 24 hr mouth daily. tablet documented as of this encounter Plan of Treatment Not on filedocumented as of this encounter Visit Diagnoses Not on filedocumented in this encounter Additional Health Concerns Assessment Noted Time PHQ-9 Depression Total Score: 9 06/06/2013 4:40 PM CDT documented as of this encounter
--- OUTSIDE RECORDS SUMMARY | 2021-12-12 09:59 | XMS_ITS | Encounter Summary ---
:1975 Author Organization [facility] Address [address] [place] [address] Care Team Providers Name Role Phone Unavailable Primary Care Provider Unavailable Encounter Details Date Type Department Care Team Description 05/14/2012 Hospital Encounter [facility]X [facility] ME Wyatt Hirsch, N.P. [address] [place] [address] (Wo rk) Social History Tobacco Use Types Packs/Day Years Used Date Smoking Tobacco: Never Assessed Sex Assigned at Date Recorded Not on file documented as of this encounter Last Filed Vital Signs Vital Sign Reading Time Taken Comments Blood Pressure 124/88 05/14/2012 9:23 AM CDT Pulse 66 05/14/2012 9:23 AM CDT Temperature - - Respiratory Rate 18 05/14/2012 9:23 AM CDT Oxygen Saturation - - Inhaled Oxygen Concentration - - Weight 122 kg (269 lb 13.5 oz) 05/14/2012 9:23 AM CDT Height 166 cm (5' 5.35) 05/14/2012 9:23 AM CDT Body Mass Index 44.42 05/14/2012 9:23 AM CDT documented in this encounter H&P Notes Nori Hirsch, N.P. - 05/14/2012 9:06 AM CDT [id number] CHIEF COMPLAINT/REASON FOR VISIT Preop exam. HISTORY OF PRESENT ILLNESS Dax is a 36-year-old female who is here today for a preoperative exam. She has surgery scheduled with Dr. Deshaun Beasley at [facility] in [place] on May 23. Planned procedure is a micro diskectomy and L4-L5 secondary to disk herniation. Please see scanned form provided by [facility] in [place]. IMPRESSION/REPORT/PLAN Preoperative exam. PLAN: Dax is medically optimized for surgery. Her REYES risk score is less than 15 with a score of 7. We did get a CBC today that was essentially normal. She is advised to hold all anti-inflammatories 1 week prior to surgery. She denies any history of DVTs. PATIENT EDUCATION: Ready to learn No apparent learning barriers were identified Learning preferences include listening Explained diagnosis and treatment plan Patient/Child/Caregiver expressed understanding of the content Mariya Lewis/danielle Electronically Signed By: NORI HISRCH NP On: 05/20/2012 02:57 PM Source: [facility] MHSDOLBEYNONRADSYS Document Id: [id number] documented in this encounter Miscellaneous Notes Miscellaneous - Nori Hirsch N.P. - 05/14/2012 11:40 AM CDT Ambulatory Patient Summary [address] [id number] Visit Information Name: DAX JOHNSON [facility] Number: [id number] Current Date: 05/14/2012 11:40:08 Physicians Attending Provider: NORI HIRSCH NP Primary Care Provider: NORI HIRSCH NP Your Medications Here is a list of your medications. It is important to take your medications as directed. Use a pillbox or chart to help remind you to take your medications. Please let your doctor or nurse know if you have problems taking your medications. Medication/Strength Dose Route Frequency Indications/Special Instructions/Comments *ibuprofen (ibuprofen 200 mg oral tablet) 800 mg Oral every 6 hours diclofenac (diclofenac sodium 100 mg oral tablet, extended release) 100 mg Oral once a day albuterol (albuterol 90 mcg/inh inhalation aerosol) 2 puff(s) Inhalation four times a day as needed for Shortness of breath / Wheezing rOPINIRole (Requip 0.25 mg oral tablet) 0.25 mg Oral once a day (at bedtime) venlafaxine (venlafaxine 75 mg oral tablet) 2 tablets in the morning and 3 tablets at bedtime Oral as directed levonorgestrel (Mirena) * You have let us know that you are not taking this medication as listed. Please talk with your primary care provider or the health care provider who prescribed the medication as soon as possible. Attention: If you have any medications at home that are not on this list, DO NOT take them until youcontact your provider for clarification. Your Allergies & Intolerances Substance Reaction Symptoms Category Comments codeine confusion Drug Your Problem List Problem Status Onset Comments Asthma, Unspecified Active 10/03/10 no known date of onset Agoraphobia with Panic Disorder Active 10/03/10 noknown date of onset Post-traumatic stress disorder (PTSD) Active 02/05/1994 Dysthymic Disorder Active 1995 Restless legs syndrome Active 02/05/1999 Low back pain* Active 08/09/2009 Your Upcoming Appointments Date Time Location Reason Provider No Appointments found Your Goals/Additional instructions: Source: [facility] POWERCHART Document Id: [id number] Miscellaneous - Nori Hirsch, N.P. - 05/14/2012 11:40 AM CDT Ambulatory Depart Summary [address] [id number] Visit Information Name: MOOSEANN-MARIEDAX [facility] Number: [id number] Visit Date: 05/14/2012 11:40:07 Attending Provider: NORI HIRSCH DREDGE PIPE INSTALLER Primary Care Provider: NORI HIRSCH DREDGE PIPE INSTALLER ELIZABETHDAX BONIFACIO has been given the following list of medications: Your Medications It is important to take your medications as directed. Use a pill box or chart to help remind you to take your medications. Please let your doctor or nurse know if you have problems taking your medications. Medication/Strength Dose Route Frequency Indications/Special Instructions/Comments *ibuprofen (ibuprofen 200 mg oral tablet) 800 mg Oral every 6 hours diclofenac (diclofenac sodium 100 mg oral tablet, extended release) 100 mg Oral once a day albuterol (albuterol 90 mcg/inh inhalation aerosol) 2 puff(s) Inhalation four times a day as needed for Shortness of breath / Wheezing rOPINIRole (Requip 0.25 mg oral tablet) 0.25 mg Oral once a day (at bedtime) venlafaxine (venlafaxine 75 mg oral tablet) 2 tablets in the morning and 3 tablets at bedtime Oral as directed levonorgestrel (Mirena) * You have let us know that you are not taking this medication as listed. Please talk with your primary care provider or the health care provider who prescribed the medication as soon as possible. Attention: If you have any medications at home that are not on this list, DO NOT take them until youcontact your provider for clarification. Additional Information: Source: [facility] MyMosaCHART Document Id: [id number] Jarred - Nori Hirsch, N.P. - 05/14/2012 10:19 AM CDT Quality Measures Quality Measures Entered On: 05/14/2012 10:20 CDT Performed On: 05/14/2012 10:19 CDT by NORI HIRSCH NP Asthma Asthma Control Test (ACT) Score : 21 ED visits past yr for asthma w/o hospital stay : 0 Hospitalizations/Overnight Stays in Past yr for Asthma : 0 Asthma Action Plan Provided/Reviewed : Reviewed with the patient Asthma Action Plan Copy : Scanned into EMR NORI HIRSCH NP - 05/14/2012 10:19 CDT Depression PHQ-9 Score : 10 NORI HIRSCH NP - 05/14/2012 10:19 CDT Source: [facility] MyMosa[facility]ART Document Id: [id number] CDT!9 Jarred - Nori Hirsch N.P. - 05/14/2012 10:12 AM CDT Obstructive Sleep Apnea Obstructive Sleep Apnea Entered On: 05/14/2012 10:14 CDT Performed On: 05/14/2012 10:12 CDT by NORI HIRSCH NP REYES Screening Known Obstructive Sleep Apnea : No - NOT diagnosed with REYES NORI HIRSCH NP - 05/14/2012 10:12 CDT REYES Assessment Do you have high blood pressure or have you been told to take medication for high blood pressure? : No Frequency of Snoring : Never Frequency of Gasping, Choking, Snorting : Rarely (1-2 times per year) Total Number of Historical Features : 0 Neck Circumference (cm) : 44/45 Total Sleep Apnea Clinical Score Calc : 7 NORI HIRSCH NP - 05/14/2012 10:12 CDT Source: [place] Document Id: [id number] CDT!10 Miscellaneous - Vu Wilkes LDevynPDevynNDevyn - 05/14/2012 9:23 AM CDT Adult Locomotive Electrician Intake/History Adult Locomotive Electrician Intake/History Entered On: 05/14/2012 9:27 CDT Performed On: 05/14/2012 9:23 CDT by VU WILKES LPN Intake Chief Complaint : pre-op disc decompression Temperature Core : 37.0 DegC(Converted to: 98.6 DegF) Peripheral Pulse Rate : 66 /min Respiratory Rate : 18 /min Heart Rhythm : Regular Systolic Blood Pressure : 124 mmHg Diastolic Blood Pressure : 88 mmHg NIBP Mean : 100 mmHg BP Location : Left upper extremity Blood Pressure Cuff Size : Large Height : 166 cm(Converted to: 5 ft 5 inch(es), 65.35 inch(es)) Actual Weight : 122.4 kg(Converted to: 269 lb 14 oz) Weight Source : Standing scale Dosing Weight Clinic : 122.4 kg Clinic BSA : 2.38 Body Mass Index : 44.42 kg/m2 VU WILKES LPN - 05/14/2012 9:23 CDT General Info Information Given By : Patient Languages : Turkish VU WILKES [facility] - 05/14/2012 9:23 CDT Subjective Pain Symptoms : Yes VU WILKES [facility] - 05/14/2012 9:23 CDT Pain Pain Assessment Grid Pain 1 Location : Upper leg Laterality : Left Intensity : 5 VU WILKES [facility] - 05/14/2012 9:23 CDT Dependent Habits Tobacco Use/Currently Using : No Tobacco Use/Last 12 months : No Tobacco Use/Advised to Quit : No Smoking Status : Never smoker VU WILKES [facility] - 05/14/2012 9:23 CDT Tobacco Use Grid Last Use : never VU WILKES [facility] - 05/14/2012 9:23 CDT Caffeine Use Grid Caffeine Use : None VU WILKES [facility] - 05/14/2012 9:23 CDT Recreational Drug Use Grid Drug Use : None VU WILKES [facility] - 05/14/2012 9:23 CDT Source: [facility] MyMosaCHART Document Id: [id number] CDT!43 documented in this encounter Plan of Treatment Not on filedocumented as of this encounter Procedures Procedure Name Priority Date/Time Associated Diagnosis Comme nts AUTOMATED Routine 05/14/2012 10:25 AM Results for this DIFFERENTIAL, B CDT procedure ar e in the results section. CBC WITH Routine 05/14/2012 10:25 AM Results for this DIFFERENTIAL, B CDT procedure ar e in the results section. documented in this encounter Results (ABNORMAL) Automated Differential (05/14/2012 10:25 AM CDT) Analysis Performed At Patho logist Time Signature Neutro % 55.5 42.0 - POWERCHART 77.0 Lymphocytes % 30.9 23.0 - POWERCHART 44.0 HX [place] % 6.0 2.0 - 18.0 POWERCHART HX Eos % 6.7 (H) 1.0 - 5.0 POWERCHART HX Baso % 0.9 0.0 - 1.0 POWERCHART Absolute 4.17 1.70 - POWERCHART Neutrophils 7.00 109L Lymphocytes 2.32 0.90 - POWERCHART 2.90 X109L Monocytes 0.45 0.30 - POWERCHART 0.90 X109L Eosinophils 0.50 0.05 - POWERCHART 0.50 X109L Absolute 0.07 0.00 - POWERCHART Basophil 0.30 X109L Specimen Anatomical Collection Method Collection Time Receive d Time (Source) Location / / Volume Laterality Blood 05/14/2012 10:25 05/14/2012 AM CDT 10:25 AM CDT Nori Hirsch N.P. LAB BLOOD ADD-ON Performing Organization Address City/State/ZIP Code Phon e Number POWERCHART CBC with Differential (05/14/2012 10:25 AM CDT) P athologist Signature Leukocytes 7.5 3.4 - 10.5 POWERCHART X109L Erythrocytes 4.64 3.90 - POWERCHART 5.03 [id number] Hemoglobin 13.8 12.0 - POWERCHART 15.5 GDL Hematocrit 41.9 34.9 - POWERCHART 44.5 MCV 90.3 82.0 - POWERCHART 98.0 FL HX RDW 13.2 11.9 - POWERCHART 15.5 Platelet Count 413 150 - 450 POWERCHART X109L HXDifferential? Auto POWERCHART Specimen (Source) Anatomical Collection Method Collection Time Re ceived Time Location / / Volume Laterality Blood 05/14/2012 10:25 AM CDT Nori Hirsch NGenevieve LAB BLOOD ADD-ON Performing Organization Address City/State/[facility] Code Phon e Number POWERCHART documented in this encounter Visit Diagnoses Not on filedocumented in this encounter Additional Health Concerns Assessment Noted Time PHQ-9 Depression Total Score: 7 01/01/2012 2:55 PM HAND OR MACHINE PASTER documented as of this encounter
--- OUTSIDE RECORDS SUMMARY | 2021-12-12 09:59 | XMS_ITS | Encounter Summary ---
:1975 Author Organization [facility] Address [address] [place] [address] Care Team Providers Name Role Phone Unavailable Primary Care Provider Unavailable Encounter Details Date Type Department Care Team Description 02/29/2012 Hospital Encounter HX [facility] Kevin Bray M.D. [address] [place] [address] [phone] (Wo rk) Social History Tobacco Use Types Packs/Day Years Used Date Smoking Tobacco: Never Assessed Sex Assigned at Date Recorded Not on file documented as of this encounter Discharge Summaries Krystal Aquino P.T. - 04/30/2012 12:00 AM CDT [id number] CHIEF COMPLAINT/REASON FOR VISIT The patient was referred to physical therapy by Dr. Bray for low back pain following a fall that she sustained on February 22. She did follow up with Honey Aquino. At the time of the physical therapy visit, the patient did have many red flags that this therapist felt more confident in sending the patient back to the physician for further followup so the patient was only seen for this one physical therapy visit. If patient has questions or concerns or needs further therapy, she could contact therapist. Otherwise patient will be discharged from physical therapy at this time. Krystal Aquino D.P.T./danielle cc: Yassine Bray M.D. Electronically Signed By: RKYSTAL AQUINO DPT On: 05/08/2012 09:43 AM Source: [facility] [id number] Document Id: [id number] documented in this encounter Consult Notes Krystal Aquino P.T. - 02/29/2012 12:00 AM CST [id number] REFERRAL SOURCE/ORDER The patient is referred to physical therapy by Dr. Yassine Bray for low back pain following a fallthat she sustained at work on February 22. CHIEF COMPLAINT/REASON FOR VISIT This is a 36-year-old female who is following up today with low back pain with left radiculopathy. Patient reports that on 02/23/2012 she was getting out of her car and did slip and reports she fell. She had her purse and her keys in her hand and was unable to catch herself and landed in a way that all of the stress went directly through her back. She reports that she was able to go in to work for a few hours but then did need to go home because of significant pain. She did follow up with Honey Aquino on Sunday the and unfortunately was unable to get into therapy until today. She has beenoff work all week reporting that at this time she really has been in bed all day, has a difficult time moving around the house, her children did stay home from school today in order to take care and drive her to the appointment. Patient is currently reporting her pain at 7 out of 10, at worst it is 10 out of 10 or more, at bestit has been 6 out of 10. She reports it that her pain has been constant, dull, weakness, aching, increasing at times, sharp, burning and numbness. It gets worse with moving, walking or sitting, it is better when she is laying low and lying on her right side. Patient is reporting that her current limitations at this time are sitting, reaching, going up and down stairs, self- care, hygiene, standing, walking, squatting, driving, sleeping, lying down, bending, work, home activities and sports and recreation. She is reporting that the only comfort she gets is when she is lying on her right side with knee bent up. Sleeping has not been going well. She reports she has tried to ice but it is difficult forher to keep the ice on there and has not had anyone to be able to help get the ice for her. Reports that she was able to take a shower for the first time today, had to put a folding chair into her shower in order to do this. Patient is reporting that her symptoms today are through that left leg. She really has minimal pain in the actual low back region, however, has pain in her left buttock appearing around the sciatic notch area and going down the leg; is reporting numbness from her knee to her ankle and pain in her glutdown the lateral border of her leg as well as in her left calf. She reports that this is a shooting pain. Really feels that these symptoms have not improved at all and if anything the pain in her leg has gotten worse. It is a constant shooting pain down her left leg. Medications She had been given a Diazepam, Oxycodone with Acetaminophen or Percocet. Reports she also reports that reports she has been taking Ibuprofen. Reports that these Meds do take the edge off, but really they are not masking that pain. 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 She has missed 4.5-days of work at this time. PHYSICAL EXAMINATION Today, patient presents in a wheelchair. She was unable to walk back to therapy. Her son is present with her today. Patient needing min assist to get to the treatment table. Patient is tender through the left glut region and does have muscle spasms through there.Unble to walk without assistance Today with assessment of her flexion, patient's reflexes were normal on the right but unable to elicit any reflexes on her left. She does have decreased strength and sensation on that left side. Her strength tests were limited due to pain but had pain with the knee extension, pain with resistance to flexion, dorsiflexion and plantar flexion appeared to be grossly 3+-4 out of 5, did not assess toe walking. Heel walking today is too difficult for patient just to walk. In general did have positive straight leg raise on her left. With ambulation patient did do better with a front wheeled walker. Discussed that she should call around and see if anyone she knows has a walker. With strength assessment of hip muscles patient felt okay with hip adduction but did have pain with resisted to hip abduction and pain with resistance to right hip flexion, did not look at left hip flexion today. IMPRESSION/REPORT/PLAN Patient presents to physical therapy today following an injury that she did sustain at work, that inwhich she fell on her back and has had left radicular symptoms every since. At this time patient would benefit from skilled physical therapy services initially to help to manage her symptoms and as hersymptoms improve to work towards range of motion, core stabilization, functional mobility and strengthening as tolerated. Today patient's symptoms seem to be causing some of red flags as we are unable to elicit reflexes onher left and she has had no improvement in her symptoms over the last week. Did have conversation with Honey Aquino regarding her MRI and anticipate that she will be to be able to get this MRI in the next few days. INTERVENTIONS THIS SESSION Today, attempted to have patient perform ankle pump for nerve glide, this was painful for her so discontinued this. Also discussed performing glut sets. Did have patient lie on her right side and performed electrical stim for 20 minutes, interferential mode with a heating pad over her piriformis and low back region. She did have relief with this and even just the pressure in the heating pad seem to help, did not seem to last significantly longer than that we had it on but she did seem to tolerate this well, may issue a TENS unit for patient for trial at home at next visit. I also had conversation regarding MRI and got this set up for patient. Anticipate that we will plan to see patient 2 to 3-times a week to help to manage her symptoms and then progress to seeing patient 1 to 2-times per week to work on core stabilization and work to manage her symptoms. GOALS OF PHYSICAL THERAPY In 6-weeks patient will meet the following goals: 1. Patient will report, 3 out of 10 for pain at her worst. 2. Patient will report that her symptoms are staying above her knee indicating a decreased compression on that nerve. 3. Patient will report being able to sleep through the night without pain. 4. Patient will be independent in home exercise program. 5. Patient will report that she is able to perform ADLs, getting dressed, showering, activities around the house without increase in pain. 6. Patient will be independent in home exercise program for range motion and strengthening. PLAN I already listed my plan previously but, plan will be to include range of motion, strengthening, manual therapy, modalities for pain management and patient education in home exercise program as well, gait training and functional mobility. Patient having a difficult time with this. EDUCATIONAL ASSESSMENT #1 Patient Education Ready to learn No apparent learning barriers were identified Learning preferences include listening Explained diagnosis and treatment plan Patient/Child/Caregiver expressed understanding of the content. Krystal Aquino D.P.T./mya cc: Dave Mercado PAC. Kathleen Ingle, F.N.P. Electronically Signed By: KRYSTAL AQUINO DPT On: 03/01/2012 12:00 PM Modified by and Electronically Signed by: KRYSTAL AQUINO DPDonell On: 03/01/2012 12:00 PM Co-Signed By: YASSINE BRAY MD On: 03/04/2012 09:12 AM Co-Signed By: HONEY AQUINO On: 03/05/2012 09:49 AM Source: [facility] MHSDOLBEYNONRADSYS Document Id: [id number] L DESIGNER documented in this encounter Miscellaneous Notes Telephone Encounter - Litzy Adams M.D. - 03/09/2012 5:22 PM CST Out of Valium/Oxycodone Caller is: ( x ) Patient ( ) Mother ( ) Father ( ) Spouse ( ) Daughter ( ) Son ( ) Pharmacy ( ) Other: Physician: Joycelyn Patient Reason for Call: Almost out of oxycodone/valium, no scheduled follow up. No [place] appt yet regarding lumbar disc abnl on MRI Message: Advice/Action: Avoid calling for narcotic refills on weekend. Will refill #50 oxycodone, #@30 valium. MAKE FOLLOW UP APPT. Source used: ( x ) Verbalizes understanding of instructions ( ) Instructed to call back if symptoms worsen or do not resolve ( ) Refused to see provider ( ) Appointment Scheduled ( ) OK to leave message on voice mail ( ) Patient told to expect return call: ( ) today ( ) tomorrow ( ) next work day ( ) Patient's email ( ) Patient told physician out of office, will call upon return call on ( ) ( ) Patient told physician out of office, routed to other physician ( ) Other ( ) Call back telephone number ( ) Call back cell phone number ( ) Electronically Signed By: LITZY ADAMS MD On: 03/09/2012 05:24 PM Source: [facility] [place] Document Id: [id number] L DESIGNER documented in this encounter Plan of Treatment Not on filedocumented as of this encounter Visit Diagnoses Not on filedocumented in this encounter Additional Health Concerns Assessment Noted Time PHQ-9 Depression Total Score: 7 01/01/2012 2:55 PM CIVIL DESIGNER documented as of this encounter
--- OUTSIDE RECORDS SUMMARY | 2021-12-12 09:59 | XMS_ITS | Encounter Summary ---
:1975 Author Organization [facility] Address [address] [place] [address] Care Team Providers Name Role Phone Unavailable Primary Care Provider Unavailable Encounter Details Date Type Department Care Team Description 01/07/2013 Hospital Encounter HX [facility] Wyatt Hirsch, N.P. [address] [place] [address] [phone] (Wo rk) Social History Tobacco Use Types Packs/Day Years Used Date Smoking Tobacco: Never Assessed Sex Assigned at Date Recorded Not on file documented as of this encounter Last Filed Vital Signs Vital Sign Reading Time Taken Comments Blood Pressure 144/95 01/07/2013 2:16 PM BOX OFFICE CLERK Pulse 84 01/07/2013 2:16 PM BOX OFFICE CLERK Temperature - - Respiratory Rate 20 01/07/2013 2:16 PM BOX OFFICE CLERK Oxygen Saturation - - Inhaled Oxygen Concentration - - Weight 127 kg (279 lb 15.8 oz) 01/07/2013 2:16 PM BOX OFFICE CLERK Height - - Body Mass Index 48.99 06/27/2012 1:20 PM CDT documented in this encounter Progress Notes Giuliano Hirsch, N.P. - 01/07/2013 2:05 PM CST [id number] CHIEF COMPLAINT/REASON FOR VISIT Chest cold, difficulty breathing. HISTORY OF PRESENT ILLNESS Mirella is a 37-year-old female who is here today with concerns about not feeling well. She reports that she has been sick the last 3 1/2 week. Her has been sick with similar symptoms as well. She reports that she has had a very frequent cough that sometimes is productive, sometimes is not. She has been slightly short of breath, tight in her chest, having difficulty sleeping. She has had no fever that she has noticed. No sinus congestion. No sore throat. She has been using her Ventolin inhalerquite frequently with only minimal improvement in her symptoms. Sandhya is also wondering if increases could be made in her fluvoxamine. We transitioned her from Effexor to fluvoxamine last month which she reports has been going well. She reports in general her anxiety has improved and is wondering if she could go up higher on this medications. MEDICATIONS Reviewed. Changes today include: The initiation of Augmentin 875 mg 1 tablet twice daily for 10-day. Fluvoxamine is increased to 150 mg extend release capsule once daily. Prednisone 20 mg 2 tablets daily for 3 days with food. Tussionex cough syrup 1 teaspoon every 12 hours as needed for cough. Ventolin inhaler refills were also provided. ALLERGIES Codeine causes confusion. PAST MEDICAL/SURGICAL HISTORY Past medical history is reviewed and unchanged. Please see EMR. VITAL SIGNS Temperature 36.4, pulse 84, respirations 20, blood pressure 144/95, O2 sat is 96% on room air. PHYSICAL EXAMINATION GENERAL: Mirella is alert, oriented times 3, appears in no acute distress. HEENT: Head is normocephalic, atraumatic. Bilateral TMs are shiny, ardon, intact with no erythema or effusion present. Nasal mucosa is slightly erythematous and swollen. No sinus tenderness. Oropharynx is without erythema, exudate or swelling. NECK: Neck is supple. No lymphadenopathy. HEART: Heart rate is regular; S1, S2 is present. No murmur or rub. LUNGS: Clear with the exception of a wheeze noted in her right lower lobe with the very base of thisbeing slightly diminished. IMPRESSION/REPORT/PLAN Bronchitis, history of asthma. PLAN: 1. Discussed with Mirella based on the length of her symptoms, very frequent cough and the tightness in her chest, it would be reasonable to do some prednisone, refill her inhalers, start her on some antibiotics and we will also give her some cough syrup. Fluids are encouraged as well as rest. She is tofollow-up with the clinic if her symptoms are not improving over the next 2 to 3 days as anticipated. 2. Fluvoxamine was increased to a total of 150 mg once daily. Plan will be to recheck her symptoms in the next 1 to 2 months. Mirella's questions have been addressed and she is agreeable to this plan of care. PATIENT EDUCATION: Ready to learn No apparent learning barriers were identified Learning preferences include listening Explained diagnosis and treatment plan Patient/Child/Caregiver expressed understanding of the content Mariya Lewis/danielle Electronically Signed By: GIULIANO HIRSCH PAYROLL ANALYST On: 01/16/2013 05:41 PM Source: [facility] MHSDOLBEYNONRADSYS Document Id: [id number] OFFICE CLERK documented in this encounter Miscellaneous Notes Miscellaneous - Fernando Mcdonald - 11/04/2015 2:23 PM CDT Quality Measures- asthma ([facility]) From: FERNANDO MCDONALD To: VU WILKES LPN; Sent: 11/04/2015 14:23:56 CDT Subject: Quality Measures- asthma ([facility]) Mirella has not been seen or had medications reordered since 09/02/2013. She has not responded to contacts in 2014. Could you please verify if PCP should be changed to elsewhere? Thank you. Source: [facility] POWERCHART Document Id: [id number] Electronically signed by Deana [facility] Senior Materials Scientist [id number] at 07/05/2016 3:10 PM CDT Miscellaneous - Vu Wilkes L.PDevynNDevyn - 06/06/2013 4:40 PM CDT PHQ-9 PHQ-9 Entered On: 06/13/2013 16:41 CDT Performed On: 06/06/2013 16:40 CDT by VU WILKES LPN PHQ-9 Little interest or pleasure in doing things : More than half the days Feeling down, depressed, or hopeless : Not at all Trouble falling or staying asleep, or sleeping too much : Several days Feeling tired or having little energy : Nearly every day Poor appetite or overeating : More than half the days Feeling bad about yourself or that you are a failure : Not at all Trouble concentrating on things : Several days Moving or speaking slowly; restless or fidgety : Not at all Thoughts that you would be better off /hurting self : Not at all PHQ-9 Calculated Score : 9 Problems make work, home, or dealing with others : Somewhat difficult VU WILKES LPN - 06/13/2013 16:40 CDT Source: [facility] [employer] Document Id: [id number] CDT!13 Miscellaneous - Hugo Couch L.P.N. - 01/07/2013 2:16 PM CST Adult Body Service Team Member Intake/History Adult Body Service Team Member Intake/History Entered On: 01/07/2013 14:23 BOX OFFICE CLERK Performed On: 01/07/2013 14:16 BOX OFFICE CLERK by HUGO COUCH LPN Intake Chief Complaint : Chest cold, difficulty breathing, productive cough x3wks Temperature Core : 36.4 DegC(Converted to: 97.5 DegF) (LOW) Peripheral Pulse Rate : 84 /min Respiratory Rate : 20 /min Systolic Blood Pressure : 144 mmHg (HI) Diastolic Blood Pressure : 95 mmHg (>HHI) NIBP Mean : 111 mmHg BP Location : Right upper extremity Blood Pressure Cuff Size : Large SpO2 : 96 % Oxygen Therapy : Room air Actual Weight : 127 kg(Converted to: 280 lb 0 oz) Weight Source : Standing scale Dosing Weight Clinic : 127 kg HUGO COUCH LPN - 01/07/2013 14:16 BOX OFFICE CLERK General Info Information Given By : Patient Preferred Communication Mode : Verbal Languages : Surinamese HUGO COUCH LPN - 01/07/2013 14:16 BOX OFFICE CLERK Subjective Pain Symptoms : Yes HUGO COUCH LPN - 01/07/2013 14:16 BOX OFFICE CLERK Pain Pain Assessment Grid Pain 1 Pain 2 Location : Chest Lower back Intensity : 3 Quality : Tightness HUGO COUCH LPN - 01/07/2013 14:16 BOX OFFICE CLERK HUGO COUCH [facility] - 01/07/2013 14:16 BOX OFFICE CLERK Dependent Habits Tobacco Use/Currently Using : No Smoking Status : Never smoker HUGO COUCH [facility] - 01/07/2013 14:16 BOX OFFICE CLERK Tobacco Use Grid Last Use : never HUGO COUCH [facility] - 01/07/2013 14:16 BOX OFFICE CLERK Alcohol Use : No HUGO COUCH [facility] - 01/07/2013 14:16 BOX OFFICE CLERK Caffeine Use Grid Caffeine Use : None HUGO COUCH [facility] - 01/07/2013 14:16 BOX OFFICE CLERK Recreational Drug Use Grid Drug Use : None HUGO COUCH [facility] - 01/07/2013 14:16 BOX OFFICE CLERK [facility] Document Id: [id number] BOX OFFICE CLERK!43 OFFICE CLERK documented in this encounter Plan of Treatment Not on filedocumented as of this encounter Visit Diagnoses Not on filedocumented in this encounter Additional Health Concerns Assessment Noted Time PHQ-9 Depression Total Score: 9 06/06/2013 4:40 PM CDT documented as of this encounter
--- OUTSIDE RECORDS SUMMARY | 2021-12-12 09:59 | XMS_ITS | Encounter Summary ---
:1975 Author Organization [facility] Address [address] [place] [address] Care Team Providers Name Role Phone Unavailable Primary Care Provider Unavailable Encounter Details Date Type Department Care Team Description 03/01/2012 Hospital Encounter HX NO MAPPING Provider, Historical Social History Tobacco Use Types Packs/Day Years Used Date Smoking Tobacco: Never Assessed Sex Assigned at Date Recorded Not on file documented as of this encounter Plan of Treatment Not on filedocumented as of this encounter Visit Diagnoses Not on filedocumented in this encounter Additional Health Concerns Assessment Noted Time PHQ-9 Depression Total Score: 7 01/01/2012 2:55 PM SALESPERSON BURIAL NEEDS documented as of this encounter
--- OUTSIDE RECORDS SUMMARY | 2021-12-12 09:59 | XMS_ITS | Encounter Summary ---
:1975 Author Organization [facility] Address [address] [place] [address] Care Team Providers Name Role Phone Unavailable Primary Care Provider Unavailable Encounter Details Date Type Department Care Team Description 06/03/2012 - Hospital Encounter HX [facility] Shonda Beasley, 06/04/2012 /ROSEANNE Acosta [address] [place] [address] Social History Tobacco Use Types Packs/Day Years Used Date Smoking Tobacco: Never Assessed Sex Assigned at Date Recorded Not on file documented as of this encounter Last Filed Vital Signs Vital Sign Reading Time Taken Comments Blood Pressure 125/70 06/04/2012 3:32 PM CDT Pulse 88 06/04/2012 3:32 PM CDT Temperature - - Respiratory Rate 16 06/04/2012 3:32 PM CDT Oxygen Saturation - - Inhaled Oxygen Concentration - - Weight 121 kg (266 lb 12.1 oz) 06/03/2012 11:26 AM CDT Height 160 cm (5' 2.99) 06/03/2012 11:26 AM CDT Body Mass Index 47.27 06/03/2012 11:26 AM CDT documented in this encounter Discharge Summaries Hanh Cochran, R.N. - 06/04/2012 7:37 PM CDT Inpatient Discharge Instructions [facility] [address] [place] [address] Patient Discharge Instructions Name: MIRELLA EDWARDS Current Date: 06/04/2012 19:37:57 : 1975 12:00 AM [facility] Number: [id number] Patient Address: [address] [place] [id number] Patient Primary Care Provider: Name: FIDELINA, GIULIANO Lorenza MCNAMARA Discharge Diagnosis: Herniated Lumbar Disc [facility] in [place] would like to thank you for allowing us to assist you with yourhealthcare needs. The following includes patient education materials and information regarding your injury/illness. Comment: MIRELLA EDWARDS has been given the following list of follow-up instructions, medication list andpatient education materials: Follow-up Instructions With: Address: When: SHONDA BEALSEY [address] [place] [id number] [place] (1) 06/10/2012 10:50:00 Comments: Call Dr. Beasley's office with any questions/concerns. Ambulate 3xday, weight bearing as tolerated.May remove dressing on post operative day 3 and shower. Elevate lower extremities and wiggle toes. Medications Medication/Strength Dose Route Frequency Indications/Special Instructions/Comments oxycodone-acetaminophen (oxycodone-acetaminophen 5 mg-325 mg oral tablet) 1 tab(s) Oral every 4 hours as needed for Pain No more than 4,000mg acetaminophen/24hrs diclofenac (diclofenac sodium 100 mg oral tablet, [...] at bedtime Oral as directed levonorgestrel (Mirena) Implant Attention: If you have any medications at home that are not on this list, DO NOT take them until youcontact your provider for clarification. Comment: Electronically Signed By: SHONDA BEASLEY MD Signed On:03-JUN-2012 15:02:37 Your Upcoming Appointments Date Time Location Reason Provider No Appointments found ELIZABETH Maria KAYLA JILL , have received the attached patient education materials/instructions and have verbalized understanding: Patient Signature Date Time Care Provider Signature Date Time 58847 Microdiskectomy During a microdiskectomy, some disk is removed. In most cases, bone must first be removed to expose the damaged disk. The part of the disk outer wall and soft center that presses on the nerve can then be removed. There is usually enough disk remaining to cushion the vertebrae. When to Call Your Doctor Once at home, call your doctor if you have any of the symptoms below: Unusual redness, heat, or drainage at the incision site Increasing pain, numbness, or weakness in your legFever over 101.0??F Before Your Surgery You will most likely arrive at the hospital on the morning of the surgery. Be sure to follow all of your doctors instructions on preparing for surgery. ?? You should stop eating or drinking 10 hours before surgery. ?? If you take a daily medication, ask if you should still take it the morning of surgery. ?? At the hospital, your temperature, pulse, breathing, and blood pressure will be checked. ?? An IV (intravenous) line may be started to provide fluids and medications needed during surgery. During Your Surgery ?? Once in the operating room, youll be given anesthesia. ?? After you are asleep, an incision is made near the center of your low back. Your incision may be 2 to 6 inches long, depending on how many vertebrae are involved. ?? In most cases, bone is removed from the vertebrae above and below the pinched nerve to expose thedamaged disk. Removing bone may also take pressure off the pinched nerve. ?? During microdiskectomy, part of the disk outer wall and soft center that is pressing on the nerveis removed. ?? Once the nerve is free of pressure, the incision is closed with stitches or surgical cristina. After Your Surgery After surgery, youll be sent to the PACU (postanesthesia care unit). When you are fully awake, ana liliabe moved to your room. The nurses will give you medications to ease your pain. You may have a catheter (small tube) in your bladder. Soon, health care providers will help you get up and moving. Ana Lilia also be shown how to clear your lungs. ?? [id number] [employer], [address] [place] [address], [place] [address]. All rights reserved. This information is not intended as a substitute for professional medical care. Always follow your healthcare professional's instructions. [address] [address] Name: MIRELLA EDWARDS Current Date: 06/04/2012 19:37:57 This document has images extracted. Please consider using [employer] for all your patient education needs. Source: [facility] POWERCHART Document Id: [id number] Hanh Cochran R.N. - 06/04/2012 7:37 PM CDT Discharge Medication List [address] [address] Discharge Medication List Name: MIRELLA EDWARDS Current Date: 06/04/2012 19:37:56 : 1975 12:00 AM [facility] Number: [id number] Patient Address: [address] [place] [id number] Patient Primary Care Provider: Name: GIULIANO KITCHEN NP Discharge Diagnosis: Herniated Lumbar Disc [facility] in [place] would like to thank you for allowing us to assist you with yourhealthcare needs. The following includes patient education materials and information regarding your injury/illness. Medications Medication/Strength Dose Route Frequency Indications/Special Instructions/Comments oxycodone-acetaminophen (oxycodone-acetaminophen 5 mg-325 mg oral tablet) 1 tab(s) Oral every 4 hours as needed for Pain No more than 4,000mg acetaminophen/24hrs diclofenac (diclofenac sodium 100 mg oral tablet, [...] at bedtime Oral as directed levonorgestrel (Mirena) Implant Attention: If you have any medications at home that are not on this list, DO NOT take them until youcontact your provider for clarification. Comment: Electronically Signed By: SHONDA BEASLEY MD Signed On:03-JUN-2012 15:02:37 Source: [facility] POWERCHART Document Id: [id number] Conversion, Historical Provider Ser - 06/04/2012 6:15 PM CDT Discharge Summary Discharge Summary Entered On: 06/04/2012 19:37 CDT Performed On: 06/04/2012 18:15 CDT by HANH COCHRAN RN DC Information Special Services and Community Resources : None Mode of Discharge : Wheelchair Discharge Transportation : Private vehicle Accompanied By : Nurse aide, Family Date/Time of Discharge : 06/04/2012 20:30 CDT ANNMARIE MONTERO RN - 06/04/2012 20:17 CDT Discharged to : Home with family care Current Home Treatments : Wound USP Equipment : None Professional Skilled Services : None HANH COCHRAN RN - 06/04/2012 19:36 CDT Valuables/Belongings Valuables/Belongings Grid Valuables at Bedside Clothes, Patient Valuables : Jacket, Pants, Shirt, Shoes, Undergarments Electronic Devices : Cell phone Monetary Items : Purse, Wallet Personal Devices : Glasses HANH COCHRAN RN - 06/04/2012 19:36 CDT Room Orientation/Facility Policy Reviewed : Yes Belongings Sent Home With : Pt. discharged with all belongings Home Medication Disposition : Sent home with family ABDIRAHMANHANH RN - 06/04/2012 19:36 CDT Source: [employer] Document Id: [id number] CDT!21 Ria Mays R.N. - 06/03/2012 4:59 PM CDT Discharge Summary Discharge Summary Entered On: 06/03/2012 17:00 CDT Performed On: 06/03/2012 16:59 CDT by RIA MAYS RN DC Information Discharged to : Home with family care Current Home Treatments : None Home Equipment : None Professional Skilled Services : None Special Services and Community Resources : None Mode of Discharge : Wheelchair Discharge Transportation : Private vehicle Accompanied By : Family RIA MAYS RN - 06/03/2012 16:59 CDT Education General Patient Education [employer] Topics : Plan of care, Postoperative instructions (Comment: Patient alert and [facility]. Rates pain 6/10-percocet given. Able to tolerate fluids. Discharge instructions/medication list/care following anesthesia given and discussed with patient/spouse who verbalized understanding. Belongings will be sent home with patient. Rx given. [RIA MAYS RN - 06/03/2012 16:59 CDT] ) Individuals Taught : Patient, Spouse Barriers to Learning : None evident Teaching Method : Explanation, Printed materials Teaching Evaluation : Verbalizes understanding RIA MAYS RN - 06/03/2012 16:59 CDT Source: [employer] Document Id: [id number] CDT!18 documented in this encounter Progress Notes Conversion, Historical Provider Ser - 06/04/2012 9:47 AM CDT Patient demonstrates independence with bed mobility and gait. Reviewed precautions. Patient had no further questions. Steady with gait, no further need for skilled PT at this time. Will dc to home. Electronically Signed By: SANDRITA FLORES On: 06/04/2012 09:48 AM Source: [facility] [employer] Document Id: [id number] documented in this encounter Procedure Notes Hanh Cochran R.N. - 06/04/2012 2:51 PM CDT Peripheral IV Peripheral IV Entered On: 06/04/2012 14:51 CDT Performed On: 06/04/2012 14:51 CDT by HANH COCHRAN RN Peripheral IV Peripheral IV Assess/Intervention Grid Peripheral IV #1 IV Activity : Discontinue Number of Attempts : 2 Date of Insertion : 06/03/2012 CDT IV Site : Hand Laterality : Left Catheter Size : 18 Catheter Type : Over the needle HANH COCHRAN RN - 06/04/2012 14:51 CDT [facility] Document Id: [id number] CDT!11 Ria Mays R.N. - 06/03/2012 11:26 AM CDT Preprocedure Checklist Document Has Been Updated Preprocedure Checklist Entered On: 06/03/2012 11:29 CDT Performed On: 06/03/2012 11:26 CDT by RIA MAYS RN Checklist Last Fluid Intake : 06/03/2012 8:30 CDT Last Food Intake : 06/02/2012 23:30 CDT Status : Patient denies RIA MAYS RN - 06/03/2012 11:26 CDT Surgery Prep Grid Contacts/Glasses Removed : Yes Dentures Removed : NA Hairpins/Hairpiecies Removed : NA Hearing Aid Removed : NA Home Prep Complete : Yes (Comment: shower [RIA MAYS RN - 06/03/2012 11:26 CDT] ) Jewelry/Piercing Removed : NA Makeup/Nail [place] Removed : NA Oral Hygiene : NA Preop Scrub AM of Surgery : NA Preop Scrub Night Prior to Surgery : NA Prosthesis Removed : NA Surgical Prep Verified : NA Tampon Removed : NA Wearing Patient Gown : Yes Voided on site soil evaluator to procedure : Yes (Comment: [phone] [RIA MAYS RN - 06/03/2012 11:26 CDT] ) RIA MAYS RN - 06/03/2012 11:26 CDT Surgical Preparation : N/A RIA MAYS RN - 06/03/2012 11:26 CDT Patient Rights Grid Blood Consent Signed : NA Surgical/Procedure Consent Signed : Yes RIA MAYS RN - 06/03/2012 11:26 CDT Family Location : [place] [facility] [place] [phone] RIA MAYS RN - 06/03/2012 11:26 CDT Checklist II Patient Safety Grid Allergy Band on and Verified : Yes Anesthesia Consult : Yes Band on for Limb Alert : NA Blood Band on and Verified : NA Current ECG in Medical Record : NA Current H&P in Medical Record : Yes Implants Verified : Yes (Comment: Merana Implant [RIA MAYS RN - 06/03/2012 11:26 CDT] ) Medication Reconciliation on Chart : NA Pacemaker/AICD Verified : NA ID Band on and Verified : Yes Preop Medications Sent With Patient : Yes Relevant Images in Medical Record : Yes Review of Labs : Yes Procedure/Site Verified by Patient/Family : Yes Procedure/Site Verified by RN : Yes Procedure/Site Verified by Physician : Yes Type & Screen/Type & Cross Completed : NA RIA MAYS RN - 06/03/2012 11:26 CDT RN Who Verified Site : RIA MAYS RN Physician Who Verified Site : SHONDA BEASLEY MD, STACIE L RN - 06/03/2012 11:26 CDT REYES Screening Known Obstructive Sleep Apnea : No - NOT diagnosed with REYES RIA MAYS RN - 06/03/2012 11:26 CDT REYES Assessment Do you have high blood pressure or have you been told to take medication for high blood pressure? : No Frequency of Snoring : Never Frequency of Gasping, Choking, Snorting : Never Total Number of Historical Features : 0 Neck Circumference (cm) : 40/41 Total Sleep Apnea Clinical Score Calc : 3 RIA MAYS RN - 06/03/2012 11:26 CDT Valuables/Belongings Valuables/Belongings Grid Valuables at Bedside Clothes, Patient Valuables : Jacket, Pants, Shirt, Shoes, Undergarments Electronic Devices : Cell phone Monetary Items : Purse, Wallet Personal Devices : Glasses RIA MAYS RN - 06/03/2012 11:26 CDT Room Orientation/Facility Policy Reviewed : Yes Home Medication Disposition : Sent home with family IRA MAYS RN - 06/03/2012 11:26 CDT Education Preprocedure Education Grid Procedure Type : Left L4-5 Mircrodiskectomy RIA MAYS RN - 06/03/2012 11:26 CDT Preop Holding Mode of Arrival : Cart Preoperative Orders Complete : Yes RIA MAYS RN - 06/03/2012 11:26 CDT Advance Directive Advanced Directives : No Advance Directive Additional Information : No RIA MAYS RN - 06/03/2012 11:26 CDT Vital Signs Temperature Core : 37.6 DegC(Converted to: 99.7 DegF) Peripheral Pulse Rate : 81 /min Respiratory Rate : 16 /min Systolic Blood Pressure : 139 mmHg Diastolic Blood Pressure : 99 mmHg (>HHI) NIBP Mean : 112 mmHg BP Location : Left upper extremity SpO2 : 97 % Oxygen Therapy : Room air Height : 160 cm(Converted to: 5 ft 3 inch(es)) Actual Weight : 121 kg Actual Weight Conversion to Pounds : 266.2 lb Weight Source : Standing scale Dosing Weight : 121 kg Dosing Weight Conversion to Pounds : 266.2 lb Body Mass Index : 47.27 kg/m2 RIA MAYS RN - 06/03/2012 11:26 CDT Allergy (As Of: 06/03/2012 11:30:01 CDT) Allergies (Active) codeine Estimated Onset Date: Unspecified ; Reactions: confusion ; Created By: LILIANE WHITE RN; Reaction Status: Active ; Category: Drug ; Substance: codeine ; Type: Side Effect ; Severity: Severe ; Updated By: LILIANE WHITE RN; Source: Patient ; Reviewed Date: 06/03/2012 11:15 CDT Source: [facility] POWERCHART Document Id: [id number] CDT!92 documented in this encounter Nursing Notes Conversion, Historical Provider Ser - 06/04/2012 7:25 PM CDT PRN Response PRN Response Entered On: 06/04/2012 20:19 CDT Performed On: 06/04/2012 19:25 CDT by ANNMARIE MONTERO RN PRN Medication Effectiveness Evaluation PRN Medication Effective : Yes ANNMARIE MONTERO RN - 06/04/2012 20:19 CDT FLACC Face FLACC : Occasional grimace or frown, withdrawn, disinterested Legs FLACC : Normal position or relaxed Activity FLACC : Lying quietly, normal position, moves easily Cry FLACC : Moans or whimpers, occasional complaint Consolabillity FLACC : Content, relaxed FLACC Pain Scale Score : 2 ANNMARIE MONTERO RN - 06/04/2012 20:19 CDT Source: [employer] Document Id: [id number] CDT!10 Hanh Cochran R.N. - 06/04/2012 12:00 PM CDT PRN Response PRN Response Entered On: 06/04/2012 15:02 CDT Performed On: 06/04/2012 12:00 CDT by HANH COCHRAN RN PRN Medication Effectiveness Evaluation PRN Medication Effective : Yes HANH COCHRAN RN - 06/04/2012 15:02 CDT Source: [employer] Document Id: [id number] CDT!3 Hanh Cochran R.N. - 06/04/2012 11:38 AM CDT Focused Assessment - Integumentary Focused Assessment - Integumentary Entered On: 06/04/2012 11:40 CDT Performed On: 06/04/2012 11:38 CDT by HANH COCHRAN RN Integumentary Pain Symptoms : Yes HANH COCHRAN RN - 06/04/2012 11:38 CDT Incision/Wound Incision/Wound Care Grid Activity : Dressing changed, Dressing intact Type : Surgical incision Location : Lower back Laterality : Central, Posterior Neurovascular Status : Neurovascular intact distal to injury, Pulses distal to injury palpable, Skindistal to injury warm and pink HANH COCHRAN RN - 06/04/2012 11:38 CDT Pain Pain Assessment Grid Pain 1 Location : Lower back Intensity : 7 Aggravating Factors : Movement Alleviating Factors : Medication, Rest HANH COCHRAN RN - 06/04/2012 11:38 CDT Source: [employer] Document Id: [id number] CDT!18 Lanette Ontiveros R.N. - 06/04/2012 5:05 AM CDT PRN Response PRN Response Entered On: 06/04/2012 5:13 CDT Performed On: 06/04/2012 5:05 CDT by LANETTE ONTIVEROS RN PRN Medication Effectiveness Evaluation PRN Medication Effective : Yes Post Medication Pain Assessment : 4 LANETTE ONTIVEROS RN - 06/04/2012 5:12 CDT Source: [employer] Document Id: [id number] CDT!4 Lanette Ontiveros R.N. - 06/04/2012 2:22 AM CDT PRN Response PRN Response Entered On: 06/04/2012 2:22 CDT Performed On: 06/04/2012 2:22 CDT by LANETTE ONTIVEROS RN PRN Medication Effectiveness Evaluation PRN Medication Effective : Yes LANETTE ONTIVEROS RN - 06/04/2012 2:22 CDT Source: [employer] Document Id: [id number] CDT!3 Geni Chambers R.N. - 06/03/2012 10:17 PM CDT PRN Response PRN Response Entered On: 06/04/2012 6:52 CDT Performed On: 06/03/2012 22:17 CDT by GENI CHAMBERS RN PRN Medication Effectiveness Evaluation PRN Medication Effective : No Post Medication Pain Assessment : 5 GENI CHAMBRES RN - 06/04/2012 6:51 CDT Source: [employer] Document Id: [id number] CDT!4 Donna Donohue R.N. - 06/03/2012 4:32 PM CDT PRN Response PRN Response Entered On: 06/03/2012 16:07 CDT Performed On: 06/03/2012 16:32 CDT by DONNA DONOHUE RN PRN Medication Effectiveness Evaluation PRN Medication Effective : Yes DONNA DONOHUE RN - 06/03/2012 16:07 CDT Source: [employer] Document Id: [id number] CDT!3 Donna Donohue R.N. - 06/03/2012 3:50 PM CDT PRN Response PRN Response Entered On: 06/03/2012 16:07 CDT Performed On: 06/03/2012 15:50 CDT by DONNA DONOHUE RN PRN Medication Effectiveness Evaluation PRN Medication Effective : No DONNA DONOHUE RN - 06/03/2012 16:07 CDT Source: [employer] Document Id: [id number] CDT!3 Donna Donohue R.N. - 06/03/2012 3:45 PM CDT PRN Response PRN Response Entered On: 06/03/2012 16:07 CDT Performed On: 06/03/2012 15:45 CDT by DONNA DONOHUE RN PRN Medication Effectiveness Evaluation PRN Medication Effective : No DONNA DONOHUE RN - 06/03/2012 16:07 CDT Source: [employer] Document Id: [id number] CDT!3 Donna Donohue R.N. - 06/03/2012 3:40 PM CDT PRN Response PRN Response Entered On: 06/03/2012 16:07 CDT Performed On: 06/03/2012 15:40 CDT by DONNA DONOHUE RN PRN Medication Effectiveness Evaluation PRN Medication Effective : No DONNA DONOHUE RN - 06/03/2012 16:06 CDT Source: [employer] Document Id: [id number] CDT!3 Donna Donohue R.N. - 06/03/2012 3:35 PM CDT PRN Response PRN Response Entered On: 06/03/2012 16:06 CDT Performed On: 06/03/2012 15:35 CDT by DONNA DONOHUE RN PRN Medication Effectiveness Evaluation PRN Medication Effective : No DONNA DONOHUE RN - 06/03/2012 16:06 CDT Source: [employer] Document Id: [id number] CDT!3 Donna Donohue R.N. - 06/03/2012 3:30 PM CDT PRN Response PRN Response Entered On: 06/03/2012 16:06 CDT Performed On: 06/03/2012 15:30 CDT by DONNA DONOHUE RN PRN Medication Effectiveness Evaluation PRN Medication Effective : No DONNA DONOHUE RN - 06/03/2012 16:06 CDT Source: [employer] Document Id: [id number] CDT!3 Erica Barnes R.N. - 05/30/2012 9:28 AM CDT Preprocedure Education Preprocedure Education Entered On: 05/30/2012 9:28 CDT Performed On: 05/30/2012 9:28 CDT by ERICA BARNES RN Education Preprocedure Education Grid Procedure Type : 06/03/12 L4-L-5 MICRODISKECTOMY Education Topics : Other: (Comment: NPO protocol Medicine regime per preop guidelines (form #2950DF)Jewelry removal Admission/check-in Anesthesia restrictions (assistance 24 hours after surgery, equipment driver, [address] for children) Hygiene/skin-prep What to bring (insurance cards, meds in cont ainers) [ERICA BARNES RN - 05/30/2012 9:28 CDT] ) Individuals Taught : Patient Barriers to Learning : None evident Teaching Method : Explanation Teaching Evaluation : Verbalizes understanding ERICA BARNES RN - 05/30/2012 9:28 CDT Source: [facility] Document Id: [id number] CDT!10 documented in this encounter OR Notes Op Note - Conversion, Historical Provider Ser - 06/04/2012 7:49 AM CDT [facility] CASE RECORD UPLOAD DATA PATIENT: MIRELLA EDWARDS SURGERY DATE: 06/03/2012 UNIT #: [id number] ROOM: [address] [place] [address] NBR: [id number] STATUS: In Process DATE: 1975 SIGN. STATUS: Unsigned Surgeon Assistants Procedure(s) Shonda Beasley Microscopic Diskectomy SECTION NAME : 1/IntraOp Case Record -- PAGE : OR01A PreOperative Assessment Notes: Comments: Patient Identification: CHART Chart IDBAND Rip Band VERBAL Verbal Date of Procedure / Site Verification: CONSENT Consent form corresponds to plan JAE Site Marked STATE Patient/Parent states procedure TOUCH Patient/Parent touches site Assess Behaviors for Appropriateness to Situation: Y Mental/Emotional Status: ALERT Alert ORT Oriented SECTION NAME : 1/IntraOp Case Record -- PAGE : OR01B PreOperative Assessment Chart Reviewed: HP History and Physical LAB Lab Reports SURG Previous Surgery XRAY X-Rays Comment: PATIENT CHART REVIEWED PRE-OP VIA PACS Notes: SECTION NAME : 1/IntraOp Case Record -- PAGE : OR02A NPO NPO After Midnight?: Y If No, NPO Since: Latex Allergy: NO SECTION NAME : 1/IntraOp Case Record -- PAGE : OR02B Anesthesia Staff Anesthesiologist: Jez Melton MD GREEN CHAIN MARKER: Jose Jenkins CRNA, Michael GREEN CHAIN MARKER SECTION NAME : 1/IntraOp Case Record -- PAGE : OR02C Anesthesia Primary Anes: 1GEN General Addtl Anes: 4LOC Local Comments: Regional Anesthetic Only: SECTION NAME : 1/IntraOp Case Record -- PAGE : OR03A Times In OR Time: 1230 Turn Over to Surgery: Surgery Start Time: 1258 Surgery End Time: 1454 Out of OR Time: 1456 Anesthesia Start Time: 1231 Anesthesia End Time: 1500 SECTION NAME : 1/IntraOp Case Record -- PAGE : OR03B Classifications Classification of Surgical Wound: Y Wound Class: CL Clean ASA Class: 3 CLASS Moderately severe systemic disorder Case Class: 1ELEC Elective Case Classified By: DRE Anesthesiologist Patient Transported to OR Via: CART Cart with Side Rails Up X2 Patient Transported to OR by: RN SECTION NAME : 1/IntraOp Case Record -- PAGE : OR03C Allergy Any Known Drug Allergies?: N Patient Drug Allergies: SECTION NAME : 1/IntraOp Case Record -- PAGE : OR04A PreOperative Assessment Blood (type and screen): NO Creutzfeldt-Henok Disease Screening: NA Pre Existing Interventions: IV IV Comment: Notes: SECTION NAME : 1/IntraOp Case Record -- PAGE : OR04B PreOperative Assessment Personal Items: NONE None Comment: SECTION NAME : 1/Intra Case Record -- PAGE : OR04C PreOperative Assessment Note Patient Sensory Limitations: Y Patient Limitations: NONE None Comment: PreOp Diagnosis: L4-5 DISC HERNIATION SECTION NAME : 1/IntraOp Case Record -- PAGE : OR05 Procedure Time Out TIME OUT: DO NOT PROCEED UNTIL ANY INCONSISTENCIES ARE RESOLVED TIME OUT takes place in the OR room, after the patient is prepped and draped and it involves the ENTIRE TEAM. All team members must verbally agree on: 1. PATIENT NAME AND DATE OF 2. NAME OF PHYSICIAN, PROCEDURE, AND CORRECT SIDE / SITE 3. CORRECT PATIENT NAME ON ANY RADIOGRAPH PRESENT 4. SPECIAL EQUIPMENT AND IMPLANTS ARE AVAILABLE AND PRESENT 5. THE PATIENT IS IN THE CORRECT POSITION FOR THE PROCEDURE 6. APPROPRIATE ANTIOBIOTIC HAS BEEN GIVEN TIME and INITIALS verify that TIME OUT has occured Time Out for Procedure Verification: 1257 Surgery Start Time: 1258 OR Nurse Initials: DEANNA Notes: SECTION NAME : 1/IntraOp Case Record -- PAGE : OR06A Case Personnel Big Data Analytics Lead: Karey Prescott RN Relief Big Data Analytics Lead: SECTION NAME : 1/IntraOp Case Record -- PAGE : ORStephanieB Case Personnel OR Tech: Alicia Garner [facility] OR Tech: SECTION NAME : 1/IntraOp Case Record -- PAGE : ORAdrienne Case Acquisition Cost Estimator: Becky Christiansen [facility] Assist: SECTION NAME : 1/IntraOp Case Record -- PAGE : ORStephanieD Case Personnel Other Name: CRISTINA Otto Role: XRAY X-Ray Technologist Notes: SECTION NAME : 1/IntraOp Case Record -- PAGE : ORRosaA Positioning Apply Safety Devices: Y Safety Strap Applied to: ACROSS CHEST AND ACROSS THIGHS Skin Risk Factors IMMOB Immobility OBES Obesity Comment: INTRA-OP SECTION NAME : 1/IntraOp Case Record -- PAGE : OR07B Positioning Evaluate PreOp Skin: YES PreOp Skin Assessment: INTACT Positioning Devices: KRIS LOAIZA Domenic Frame Comment: SECTION NAME : 1/IntraOp Case Record -- PAGE : OR07C Positioning Positioning Protection: ULNAR Ulnar Protection GEL Gel Pads PILLOW Pillow SCD Sequential Compression Device Comment: BLUE FOAM PADS BILATERALLY UNDER KNEES UNDER LEGS, KNEE SLIGHTLY FLEXED, TOES FREE FROM PRESSURE KNEE HIGH BILATERALLY AND SEQUENCING Notes: SECTION NAME : 1/IntraOp Case Record -- PAGE : OR08A Positioning Position for Surgery: PRONE Prone Comment: Positioned By: VERONICA Registered Nurse TOO Certified Registered Nurse Road Repairer ASSIST Pantry Steward/Stewardess LUIS E Surgeon Comment: SECTION NAME : 1/IntraOp Case Record -- PAGE : OR08B Positioning Arm Position During Surgery: ARMFLEX Arms Flexed at Elbows with Hands Pronated Comment: Notes: SECTION NAME : 1/IntraOp Case Record -- PAGE : OR08C Prep Skin Prep: Y Prep Solution: DURAPREP* Duraprep *Length of Alcohol Prep Dry Time (3 min minimum): 3 Comment: BACK SECTION NAME : 1/IntraOp Case Record -- PAGE : OR09A Prep Skin Condition at Op Site: INTACT Intact Comment: SITE MARKING VISIBLE SECTION NAME : 1/IntraOp Case Record -- PAGE : OR09B Prep Surgical Clippers: N/A By: Area: SECTION NAME : 1/Intra Case Record -- PAGE : JORGE A Specimen Manage specimen handling and disposition: Y Specimen: Y Specimen Sent To: PATH Pathology Specimen Description: L4-5 DISC Notes: SECTION NAME : 1/IntraOp Case Record -- PAGE : OR10B Culture Culture: N Culture Site: Culture Type: SECTION NAME : 1/IntraOp Case Record -- PAGE : OR11A Meds Med/Irrigant/Hemostasis: Dosage: Route: STER Sterile Water ON BACK TABLE IRR NACL Sodium Chloride 0.9% 10ML INJ [id number] 1 ml Epinepherine 1:1000 in 1ML INJ 100 ml NaCl DEPO DepoMedrol (Methylprednisolone) 10ML INJ SENS25 Sensorcaine (Marcaine,Bupivacai 20,000 UNITS HEMO ne) 0.25% THROM Thrombin Medications On/Off Field Labeled: YES Notes: SECTION NAME : 1/IntraOp Case Record -- PAGE : OR11B XRay X-Rays Taken: Y X-Ray Type: SALEEM C-Arm Indication for X-Ray: DISC Disc Level Location Patient Shield: N Other Indication for X-Ray: SECTION NAME : 1/IntraOp Case Record -- PAGE : OR12A Cautery Grounding Pad Applied: Y Cautery Pad Placement: LTHIGH Left Thigh If Other, detail: ESU Number: 11 Cut: 35 Coagulation: 35 Blend: PURE Bipolar: N/A SECTION NAME : 1/IntraOp Case Record -- PAGE : OR12B Special Equipment Special Equipment Used: SALEEM C-Arm NEURO Neuro Microscope Comment: F Notes: Thermal Unit: Temperature: Y ANES Per Anesthesia SECTION NAME : 1/IntraOp Case Record -- PAGE : OR12B Tourniquet 2 Tourniquet #2 Site: NONE None Pressure (mm Hg): Tourniquet Letter: Tourniquet Padded: Tourniquet Applied By: Patient Blood Pressure: #2 Inflated: #2 Deflated: Notify Surgeon After 60 Minutes-Time: After 1 Hour, Notify Surgeon Every 30 Min-Time: SECTION NAME : 1/IntraOp Case Record -- PAGE : OR13A Tourniquet 1 Tourniqet #1 Site NONE None Pressure (mm Hg): Tourniquet Letter: Tourniquet Applied By: Patient Blood Pressure: #1 Inflated: #1 Deflated: Notify Surgeon After 60 Minutes-Time: After 1 Hour, Notify Surgeon Every 30 Min- Time: Notes: SECTION NAME : 1/IntraOp Case Record -- PAGE : OR14A Drains Tube /Drain/ Catheter: Size: Location: NONE None Inserted By (if applicable): OR Drainage Detail: Notes: SECTION NAME : 1/IntraOp Case Record -- PAGE : OR14B Packing Packing: NONE None Site: SECTION NAME : 1/IntraOp Case Record -- PAGE : OR15A Closing PreOp Diagnosis: L4-5 DISC HERNIATION Post Op Diagnosis: Same Operation: LEFT L4-5 MICRODISCECTOMY Notes: SECTION NAME : 1/IntraOp Case Record -- PAGE : OR15B Dressing Evaluate PostOp Skin: Y Post Op Skin Condition: SATISFACTORY; GROUNDING PAD SITE INTACT Dressing: STERI Steri Strips BET Betadine Adaptic 4X4 4 X 4 ABD ABD TAPE Tape Comment: SECTION NAME : 1/IntraOp Case Record -- PAGE : OR16A Count Perform required counts: Y Initial Count Completed Prior to Patient in OR: Y White Board Used to Document Counts: Y Surgicount Used: YES Yes Surgeon Notified of Counts: Y If Counts Unresolved, X-Ray Taken: NA EBL (ml): 250ML Notes: SECTION NAME : 1/[facility] Case Record -- PAGE : OR16B Sponge Count Count Description: Sponge: INITIAL Initial Count Y PRIOR Prior to Closure of Surgical Wound Y SKIN Closing Skin Y SECTION NAME : 1/[facility] Case Record -- PAGE : OR16C Sharp Count Count Description: Sharps: INITIAL Initial Count Y PRIOR Prior to Closure of Surgical Wound Y SKIN Closing Skin Y SECTION NAME : 1/[facility] Case Record -- PAGE : OR16D Instrument Count Count Description: Instruments: INITIAL Initial Count N/A PRIOR Prior to Closure of Surgical Wound N/A SKIN Closing Skin N/A SECTION NAME : 1/IntraOp Case Record -- PAGE : OR16E Patient Discharged To Transport Via: CART Cart with Side Rails Up X2 OR Pt Discharge To: PACU Post Anesthia Care Unit Room: : Time: SECTION NAME : 1/IntraOp Case Record -- PAGE : OR17 Family Notification Provide Status Reports to Family/Support Person: N/A Notification Time: Notes: SECTION NAME : 1/IntraOp Case Record -- PAGE : OR18A New Laser Form 8.15.12 Initials verify that LASER SAFETY CHECKLIST was reviewed and is complete OR Nurse Initials Laser Type: Hertz Setting: Joules Setting: Bowie: Total Pulses: Total Joules: Total Bowie: Total Laser Time: Laser Type 2: Hertz Setting 2: Joules Setting 2: Bowie 2: Total Pulses 2: Total Joules 2: Total Laser Time 2: SECTION NAME : 1/IntraOp Case Record -- PAGE : OR19A Blood Pressure Time: BP_Systolic BP_Diastolic NA NA Is This Case Local? N Notes: SECTION NAME : 1/IntraOp Case Record -- PAGE : OR19B Respiratory_Heart Rate Time: RR: HR: NA NA SECTION NAME : 1/IntraOp Case Record -- PAGE : OR19C Temp_O2Sat Time: Temp: O2sat: NA NA SECTION NAME : 1/IntraOp Case Record -- PAGE : OR20 Implants # Qty: Reference Number: # Qty: Consignment Implant Description/Size # Lot #: Serial #: Reference # Location: # Payroll And Benefits Specialist: Date: Wasted: Notes: SECTION NAME : 1/IntraOp Case Record -- PAGE : OR22A Tissue Log A Hammer Mill Operator From Lab to OR: Tissue Description Tissue Disposition: NONE None Time Implanted: Tissue Type: SECTION NAME : 1/IntraOp Case Record -- PAGE : OR22B Tissue Log B Tissue Package Condition: Package Opened By: Tissue Prepared By: Tissue Prepared According to Package Insert?: Implant Card Completed and Mailed?: SECTION NAME : 1/IntraOp Case Record -- PAGE : OR22C Tissue Log C Rehydrating Solution: Thawing Solution: Time in Solution: Solution Temp Celsius: Duration in Solution: SECTION NAME : 1/IntraOp Case Record -- PAGE : OR21 CSection C Section Called: Heart Tones Prior to Surgery: Uterine Scoring: Delivery Time: Sex: Delivery Assistance: Notes: Source: [facility] ISJPICISSYS Document Id: [id number] Op Note - Shonda Beasley M.D. - 06/03/2012 12:00 AM CDT [id number] DATE: 06/03/2012 PREOPERATIVE DIAGNOSIS Left L4-5 disk herniation. POSTOPERATIVE DIAGNOSIS Left L4-5 disk herniation with BMI of 46. SURGEON Shonda Beasley M.D. HARNESS PLACER Becky Garcia P.A.-C OPERATION Left L4-5 microdiskectomy and hemilaminectomy with operating room microscope, BMI of 46. ESTIMATED BLOOD LOSS: 250 mL. ANESTHESIA: General/local. DRAINS: None. COMPLICATIONS: None. COMPONENTS: None. PLAN: Weightbearing as tolerated. FINDINGS: L4-5 disk protrusion. INDICATION FOR PROCEDURE: Patient is a 36-year-old female with a history of ongoing leg pain into the left leg. MRI scan showed a disk herniation at the L4- 5 level. She is now brought for elective microdiskectomy with operating room microscope. PROCEDURE: After informed consent had been obtained, the patient brought to the operating room and given adequate general anesthesia. The operative site appears to have been marked while the patient was yet awake. She was then rolled onto the Shayne table. It should be noted that this patient took extra time for preparation, extra time for the surgery and extra suture as well as extra instruments due to her large body habitus. The standard prep and drape had been performed. Dissection was carried down through the skin and soft tissue using a scalpel. The lumbar subcutaneous fat was greater than 12 cm in thickness. The electrocautery was used for incision of this area. Numerous retractors were tried - Meyerding retractors, Koros retractor and other long-instrumented retractors due to the patients large size and we elected eventually to use a Shepards crook retractor placed over the facet joint region for retraction of the soft tissue. The electrocautery was used for incision of the lumbar fascia. Periosteal dissection wascarried out over the Garsia elevator starting inferiorly and progressing superiorly. The L4-5 interspace was identified and the intraoperative C-arm image confirmed accessible positioning at the L4-5 interspace. The overlying left side of the L4 lamina was partially removed and this was carried out laterally to give good exposure of the thecal sac. Any ligamentum flavum also was removed for a large area of decompression. The thecal sac was then retracted medially using a nerve retractor. The existing nerve roots were identified. The 4-5 disk space was shown to have a protrusion and this was entered with an 11 blade and the entrance to that without removal then of the disk material. There was some disk material both superiorly and also inferiorly at this level, which was causing impingement. Care was taken to make sure that all loose pieces within the disk space were removed using an angle and upbiting parapituitaries. The hook was placed both superiorly and inferiorly from the level of the disk space in order to maybe verify clear and complete decompression. Bipolar cautery was used for some epidural bleeding. The wound was thoroughly irrigated with orthopedic solution times 3. A fat graft was harvested. A catheter was then placed into the disk space and was irrigated for any other loose disk material, which was then removed. The disk was sent to pathology. The 40 mg of Depo-Medrol were placed over the area of the exposed thecal sac along with a fat pad graft which was obtained from the large amount of subcutaneous fat. The wound was then closed using number 1 Vicryl suture for the lumbar fascia closure, 2-0 Vicryl for subcutaneous tissues with numerous subcutaneous layers placed for closure of any space, the subcutaneous tissues closed using 2-0 Vicryl along with 3-0 Vicryl with steri-strips. Betadine-soaked Adaptic 4 x 4s, ABD and paper tape were then applied. The plan is for the patient to be weightbearing as tolerated. There were no complications. It should be noted again that extra time for patient positioning, movement, retractions and suture materials and instruments were all special for the patients large size. Shonda Beasley M.D./flash Electronically Signed By: SHONDA BEASLEY MD On: 06/07/2012 07:04 AM Source: [facility] MHSDOLBEYNONRADSYS Document Id: [id number] documented in this encounter Miscellaneous Notes Miscellaneous - Jenny Kat RDevynNDevyn - 11/12/2012 2:41 PM CDT Med Management Document Contains Addenda Addendum by JENNY MATAMOROS RN on 12 November 2012 15:19:36 CDT This was called to [place]. Addendum by GIULIANO KITCHEN NP on 12 November 2012 14:47:54 CDT From: GIULIANO KITCHEN NP To: JENNY MATAMOROS RN; Sent: 11/12/2012 14:47:52 CDT Subject: RE:Med Management Approved with modifications: Order:diclofenac (diclofenac sodium 100 mg oral tablet, extended release) 1 tab(s) PO Daily Qty: 90 tab(s) Duration: 90 day(s) Refills: 2 Don't Print - called to pharmacy (Rx) Signed by GIULIANO KITCHEN NP 11/12/2012 14:47:50 From: JENNY MATAMOROS RN To: GIULIANO KITCHEN NP; Sent: 11/12/2012 14:41:58 CDT Subject: Med Management On hold pending signature Order:diclofenac (diclofenac sodium 100 mg oral tablet, extended release) 1 tab(s) PO Daily Qty: 90 tab(s) Duration: 90 day(s) Refills: 3 Don't Print - called to pharmacy (Rx) RN unable to fill due to medication not on refill protocol. HOLLY Source: [facility] POWERCHART Document Id: [id number] Electronically signed by [facility]ana [facility] Community Development Specialist [id number] at 07/05/2016 11:14 AM CDT Miscellaneous - Annmarie Justice, L.P.N. - 06/24/2012 11:07 AM CDT General Message Document Contains Addenda Addendum by ANNMARIE JUSTICE LPN on 24 Jun 2012 15:26:28 CDT spoke to pt. Addendum by GIULIANO KITCHEN NP on 24 Jun 2012 12:39:31 CDT From: GIULIANO KITCHEN NP To: ANNMARIE JUSTICE LPN; Sent: 06/24/2012 12:39:31 CDT Subject: RE: General Message Please request she come in to discuss as this it is difficult to know what the cause of this could be. Thanks. From: ANNMARIE JUSTICE LPN To: GIULIANO KITCHEN NP; Sent: 06/24/2012 11:07:37 CDT Subject: General Message Angely pt. called and shared she is having wt.retention,has gained 8-10 lbs.Is wondering if she should take some more later pills?She is drinking water. She left her number,[phone].She was wondering if had any suggestions.thank you .co Source: [facility] Collarity Document Id: [id number] Electronically signed by Deana [facility] Community Development Specialist [id number] at 07/05/2016 11:14 AM CDT Jarred - Hanh Cochran RDevynNDevyn - 06/04/2012 4:00 PM CDT Adult Activities of Daily Living Adult Activities of Daily Living Entered On: 06/04/2012 16:45 CDT Performed On: 06/04/2012 16:00 CDT by HANH COCHRAN RN ADLs I Activity Status ADL : Up ad jen Activity Assistance : Independent Assistive Device : None Range of Motion LUE : Active Range of Motion RUE : Active Range of Motion LLE : Active Range of Motion RLE : Active HANH COCHRAN RN - 06/04/2012 16:44 CDT ADLs II Standard Safety : Bed in low position, Call device within reach, ID band check, Non-Slip footwear, Rounds every 1 hour, Upper/Half-length side-rails up, Wheels locked HANH COCHRAN RN - 06/04/2012 16:44 CDT Source: [facility] ZadspaceCHART Document Id: [id number] CDT!11 Jarred - Hanh Cochran R.N. - 06/04/2012 3:30 PM CDT Adult Ongoing Assessment Adult Ongoing Assessment Entered On: 06/04/2012 16:50 CDT Performed On: 06/04/2012 15:30 CDT by HANH COCHRAN RN Respiratory Respiratory Patient Stated Symptoms : None Respirations : Unlabored Respiratory Pattern : Regular All Lobes Breath Sounds : Clear, Diminished Cough : None Sputum Amount : None Suction : None Airway : Patent HANH COCHRAN 06/04/2012 16:45 CDT Cardiovascular CV Patient Stated Symptoms : None Nail Bed Color : [place] Capillary Refill : Less than 2 seconds Edema : None HANH COCHRAN 06/04/2012 16:45 CDT Pulses Grid Dorsalis Pedis Pulse, Left : 2+ Normal Dorsalis Pedis Pulse, Right : 2+ Normal HANH COCHRAN 06/04/2012 16:45 CDT Skin Color : Normal for ethnicity Skin Temperature : Warm Activity Tolerance : Without distress HANH COCHRAN 06/04/2012 16:45 CDT Neurological Neuro Patient Stated Symptoms : None Orientation : Oriented x 3 Level of Consciousness : Alert Gait : Steady Swallowing Difficulty/Aspiration Risk : None HANH COCHRAN 06/04/2012 16:45 CDT [place] Coma Eye Opening Response Ernestina : Spontaneously Best Verbal Response [place] : Oriented Best Motor Response [place] : Obeys simple commands Ernestina Coma Score : 15 HANH COCHRAN 06/04/2012 16:45 CDT Psycho/Emotional Affect/Behavior : Calm, Cooperative Pain Symptoms : No HANH COCHRAN 06/04/2012 16:45 CDT FLACC Face FLACC : No particular expression or smile Legs FLACC : Normal position or relaxed Activity FLACC : Lying quietly, normal position, moves easily Cry FLACC : No cry, awake or asleep Consolabillity FLACC : Content, relaxed FLACC Pain Scale Score : 0 HANH COCHRAN 06/04/2012 16:45 CDT Gastrointestinal GI Patient Stated Symptoms : None Abdomen Description : Symmetric Abdomen Palpation : Soft Bowel Sounds All Quadrants : Present Passing Flatus : Yes HANH COCHRAN 06/04/2012 16:45 CDT Genitourinary Patient Stated Symptoms : None Urinary Elimination : Voiding, no difficulties HANH COCHRAN 06/04/2012 16:45 CDT Integumentary Integumentary Patient Stated Symptoms : None Skin Turgor : Elastic Skin Integrity : Not intact Mucous Membrane Color : [place] Mucous Membrane Description : Moist Skin Color : Normal for ethnicity Skin Temperature : Warm HANH COCHRAN 06/04/2012 16:45 CDT Incision/Wound Incision/Wound Care Grid Activity : Assessed, Dressing intact Type : Surgical incision Location : Lower back Laterality : Central, Posterior Neurovascular Status : Neurovascular intact distal to injury, Pulses distal to injury palpable, Skindistal to injury warm and pink HANH COCHRAN A 06/04/2012 16:45 CDT Scott Sensory Perception Scott : No impairment Moisture Scott : Rarely moist Activity Scott : Walks occasionally Mobility Scott : Slightly limited Nutrition Scott : Adequate ABDIRAHMANHANH A 06/04/2012 16:45 CDT Musculoskeletal Musculoskeletal Patient Stated Symptoms : None ABDIRAHMANHANH A 06/04/2012 16:45 CDT Musculoskeletal Strength Grid Left Upper Extremity Right Upper Extremity Left Lower Extremity Right Lower Extremity Strength : Strong to gravity and resistance Strong to gravity and resistance Strong to gravity and resistance Strong to gravity and resistance Dorsiflexion : Strong Strong Plantar/Palmar Flexion : Strong Strong HANH COCHRAN A 06/04/2012 16:45 CDT ABDIRAHMAN HANH A 06/04/2012 16:45 CDT ABDIRAHMAN HANH A 06/04/2012 16:45 CDT ABDIRAHMAN, HANH A 06/04/2012 16:45 CDT Peripheral IV Peripheral IV Assess/Intervention Grid Peripheral IV #1 IV Activity : Discontinue Number of Attempts : 2 Date of Insertion : 06/03/2012 CDT IV Site : Hand Laterality : Left Catheter Size : 18 Catheter Type : Over the needle HANH COCHRAN A 06/04/2012 16:45 CDT Hendrich II Fall Risk Confusion/Disorientation Hendrich : No Depression Fall Risk Hendrich : No Altered Elimination Fall Risk Hendrich : No Dizziness/Vertigo Fall Risk Hendrich : No Gender, Male Fall Risk Hendrich : No Prescribed Antiepileptics Hendrich : No Prescribed Benzodiazepines Hendrich : No Rising From Chair Fall Risk Hendrich : Able to rise in a single movement, no loss of balance with steps Fall Risk Score Hendrich II : 0 HANH COCHRAN RN - 06/04/2012 16:45 CDT Safe Patient Movement Safe Pt Movement Independent : Yes Mobility Status : Independent HANH COCHRAN RN - 06/04/2012 16:45 CDT Source: [employer] Document Id: [id number] CDT!111 Miscellaneous - Hanh Cochran R.N. - 06/04/2012 11:00 AM CDT Adult Activities of Daily Living Adult Activities of Daily Living Entered On: 06/04/2012 15:44 CDT Performed On: 06/04/2012 11:00 CDT by HANH COCHRAN RN ADLs II Hygiene Assistance Grid Bed Bath : Independent Hair Care : Independent Oral Care : Independent Karla Care : Independent HANH COCHRAN RN - 06/04/2012 15:44 CDT Source: [employer] Document Id: [id number] CDT!7 Jarred - Hanh Cochran RDevynNDevyn - 06/04/2012 8:00 AM CDT Adult Activities of Daily Living Adult Activities of Daily Living Entered On: 06/04/2012 9:50 CDT Performed On: 06/04/2012 8:00 CDT by HANH COCHRAN RN ADLs I Patient Position : Sitting in bed Activity Status ADL : Up ad jen Activity Assistance : Stand-by assistance Assistive Device : Gait belt Range of Motion LUE : Active Range of Motion RUE : Active Range of Motion LLE : Active Range of Motion RLE : Active HANH COCHRAN RN - 06/04/2012 9:48 CDT ADLs II Standard Safety : Bed in low position, Call device within reach, Gait belt, ID band check, Non-Slip footwear, Rounds every 1 hour, Upper/Half-length side-rails up, Wheels locked HANH COCHRAN RN - 06/04/2012 9:48 CDT Source: [facility] ZadspaceCHART Document Id: [id number] CDT!12 Miscellaneous - Hanh Cochran R.N. - 06/04/2012 8:00 AM CDT Adult Ongoing Assessment Adult Ongoing Assessment Entered On: 06/04/2012 9:53 CDT Performed On: 06/04/2012 8:00 CDT by HANH COCHRAN RN Respiratory Respiratory Patient Stated Symptoms : None Respirations : Unlabored Respiratory Pattern : Regular All Lobes Breath Sounds : Clear, Diminished Cough : None Sputum Amount : None Suction : None Airway : Patent HANH COCHRAN RN - 06/04/2012 9:51 CDT Cardiovascular CV Patient Stated Symptoms : None Nail Bed Color : [place] Capillary Refill : Less than 2 seconds Edema : Other: feet puffy bilat HANH COCHRAN RN - 06/04/2012 9:51 CDT Pulses Grid Dorsalis Pedis Pulse, Left : 2+ Normal Dorsalis Pedis Pulse, Right : 2+ Normal HANH COCHRAN - 06/04/2012 9:51 CDT Skin Color : Normal for ethnicity Skin Temperature : Warm Activity Tolerance : Without distress HANH COCHRAN RN - 06/04/2012 9:51 CDT Neurological Neuro Patient Stated Symptoms : None Orientation : Oriented x 3 Level of Consciousness : Alert Gait : Steady Swallowing Difficulty/Aspiration Risk : None HANH COCHRAN 06/04/2012 9:58 CDT Ernestina Coma Eye Opening Response Ernestina : Spontaneously Best Verbal Response [place] : Oriented Best Motor Response Ernestina : Obeys simple commands [place] Coma Score : 15 HANH COCHRAN 06/04/2012 9:58 CDT Psycho/Emotional Affect/Behavior : Calm, Cooperative Pain Symptoms : No HANH COCHRAN 06/04/2012 9:58 CDT FLACC Face FLACC : No particular expression or smile Legs FLACC : Normal position or relaxed Activity FLACC : Lying quietly, normal position, moves easily Cry FLACC : No cry, awake or asleep Consolabillity FLACC : Content, relaxed FLACC Pain Scale Score : 0 HANH COCHRAN Tien 06/04/2012 9:58 CDT Gastrointestinal GI Patient Stated Symptoms : None Abdomen Description : Obese, Symmetric Abdomen Palpation : Soft Bowel Sounds All Quadrants : Present Passing Flatus : No ABDIRAHMAN HANH A 06/04/2012 9:58 CDT Genitourinary Patient Stated Symptoms : None Urinary Elimination : Voiding, no difficulties ABDIRAHMAN, HANH A 06/04/2012 9:58 CDT Integumentary Integumentary Patient Stated Symptoms : None Skin Turgor : Elastic Skin Integrity : Not intact Mucous Membrane Color : [place] Mucous Membrane Description : Moist Skin Color : Normal for ethnicity Skin Temperature : Warm ABDIRAHMAN HANH A 06/04/2012 9:58 CDT Incision/Wound Incision/Wound Care Grid Activity : Dressing intact Type : Surgical incision Location : Lower back Laterality : Central, Posterior Neurovascular Status : Neurovascular intact distal to injury, Pulses distal to injury palpable, Skindistal to injury warm and pink ABDIRAHMAN HANH A 06/04/2012 9:58 CDT Scott Sensory Perception Scott : No impairment Moisture Scott : Rarely moist Activity Scott : Walks occasionally Mobility Scott : Slightly limited Nutrition Scott : Adequate ABDIRAHMAN HANH A 06/04/2012 9:58 CDT Musculoskeletal Musculoskeletal Patient Stated Symptoms : None ABDIRAHMAN HANH A 06/04/2012 9:58 CDT Musculoskeletal Strength Grid Left Upper Extremity Right Upper Extremity Left Lower Extremity Right Lower Extremity Strength : Strong to gravity and resistance Strong to gravity and resistance Strong to gravity and resistance Strong to gravity and resistance Dorsiflexion : Strong Strong Plantar/Palmar Flexion : Strong Strong ABDIRAHMAN HANH A 06/04/2012 9:58 CDT HANH COCHRAN 06/04/2012 9:58 CDT HANH COCHRAN 06/04/2012 9:58 CDT HANH COCHRAN 06/04/2012 9:58 CDT Peripheral IV Peripheral IV Assess/Intervention Grid Peripheral IV #1 IV Activity : Assessment Number of Attempts : 2 Date of Insertion : 06/03/2012 CDT IV Site : Hand Laterality : Left Catheter Size : 18 Catheter Type : Over the needle HANH COCHRAN RN - 06/04/2012 9:58 CDT Hendrich II Fall Risk Confusion/Disorientation Hendrich : No Depression Fall Risk Hendrich : No Altered Elimination Fall Risk Hendrich : No Dizziness/Vertigo Fall Risk Hendrich : No Gender, Male Fall Risk Hendrich : No Prescribed Antiepileptics Hendrich : No Prescribed Benzodiazepines Hendrich : No Rising From Chair Fall Risk Hendrich : Able to rise in a single movement, no loss of balance with steps Fall Risk Score Hendrich II : 0 HANH COCHRAN RN - 06/04/2012 9:58 CDT Safe Patient Movement Safe Pt Movement Independent : Yes Mobility Status : Supervision/Minimal Assistance HNAH COCHRAN RN - 06/04/2012 10:20 CDT Source: [employer] Document Id: [id number] CDT!111 Jarred - Dalia Biswas RDevynNDevyn - 06/04/2012 4:15 AM CDT Rapid Response Follow up Rapid Response Follow up Entered On: 06/04/2012 4:17 CDT Performed On: 06/04/2012 4:15 CDT by DALIA BISWAS RN Follow up RR Follow up Note 1 Date/Time : 06/04/2012 1:00 CDT Rapid Response Follow up Note 1 : Heart rate 100. Resting better and is not anxious. Pt nurse sates that pt expects to go home today. DALIA BISWAS RN - 06/04/2012 4:15 CDT Source: [employer] Document Id: [id number] CDT!4 Lanette Kilpatrick R.N. - 06/04/2012 1:51 AM CDT Adult Activities of Daily Living Adult Activities of Daily Living Entered On: 06/04/2012 1:52 CDT Performed On: 06/04/2012 1:51 CDT by LANETTE ONTIVEROS RN ADLs I Patient Position : Elevate head of bed 30 degrees, Lying on right side Activity Status ADL : Bathroom privileges, HOB elevated intermittently, Reposition every 2 hours Activity Assistance : Moderate 1 person assistance Assistive Device : Gait belt Repositioning/Pressure Reducing Devices : Pillow Range of Motion LUE : Active Range of Motion RUE : Active Range of Motion LLE : Active Range of Motion RLE : Active Ambulation Patient Effort : Good LANETTE ONTIVEROS RN - 06/04/2012 1:51 CDT ADLs II Hygiene Assistance Grid Karla Care : Independent LANETTE ONTIVEROS RN - 06/04/2012 1:51 CDT Elimination Assistance Offered Q2H : Offered/Performed Standard Safety : Bed in low position, Call device within reach, Gait belt, ID band check, Night light, Non-Slip footwear, Rounds every 1 hour, Upper/Half- length side-rails up, Wheels locked LANETTE ONTIVEROS RN - 06/04/2012 1:51 CDT Source: [employer] Document Id: [id number] CDT!17 Miscellaneous - Lanette Ontiveros RDevynNDevyn - 06/04/2012 12:05 AM CDT Adult Ongoing Assessment Adult Ongoing Assessment Entered On: 06/04/2012 1:51 CDT Performed On: 06/04/2012 0:05 CDT by LANETTE ONTIVEROS RN Respiratory Respiratory Patient Stated Symptoms : None Respirations : Unlabored Respiratory Pattern : Regular All Lobes Breath Sounds : Clear Cough and Deep Breathe : Done Cough : None, Able to clear secretions Sputum Amount : None Suction : None Airway : Patent LANETTE ONTIVEROS RN - 06/04/2012 1:40 CDT Cardiovascular CV Patient Stated Symptoms : None Heart Rhythm : Regular Heart Sounds ICU : S1S2 Nail Bed Color : [place] Capillary Refill : Less than 2 seconds Edema : None Tevin's Sign : Negative LANETTE ONTIVEROS RN 06/04/2012 1:40 CDT Pulses Grid Radial Pulse, Left : 2+ Normal Radial Pulse, Right : 2+ Normal Dorsalis Pedis Pulse, Left : 2+ Normal Dorsalis Pedis Pulse, Right : 2+ Normal Posttibial Pulse, Left : 2+ Normal Posttibial Pulse, Right : 2+ Normal LANETTE ONTIVEROS 06/04/2012 1:40 CDT Skin Color : Normal for ethnicity Skin Description : Dry Skin Temperature : Warm Activity Tolerance : Without distress LANETTE ONTIVREOS 06/04/2012 1:40 CDT Neurological Neuro Patient Stated Symptoms : Tingling, Other: pt c/o tingling in left foot, pt reports pre-op hadtingling also Orientation : Oriented x 3 Level of Consciousness : Alert Gait : Steady Swallowing Difficulty/Aspiration Risk : None LANETTE ONTIVEROS 06/04/2012 1:40 CDT [place] Coma Eye Opening Response [place] : Spontaneously Best Verbal Response Ernestina : Oriented Best Motor Response Ernestina : Obeys simple commands [place] Coma Score : 15 LANETTE ONTIVEROS 06/04/2012 1:40 CDT Psycho/Emotional Affect/Behavior : Anxious Pain Symptoms : No Feels Rested : Yes LANETTE ONTIVEROS 06/04/2012 1:40 CDT Coping Grid Stable mood with appropriate affect : No (Comment: anxiety at times [LANETTE ONTIVEROS 06/04/2012 1:40 CDT] ) LANETTE ONTIVEROS [facility] 06/04/2012 1:40 CDT Safety Grid Vision, Hearing, Mobility Adequate to Meet Safety Needs : Yes LANETTE ONTIVEROS 06/04/2012 1:40 CDT Gastrointestinal GI Patient Stated Symptoms : None Abdomen Description : Obese, Symmetric Abdomen Palpation : Soft Bowel Sounds All Quadrants : Present LANETTE ONTIVEROS 06/04/2012 1:40 CDT Genitourinary Patient Stated Symptoms : None Urinary Elimination : Voiding, no difficulties Urine Color : Yellow Urine Description : Clear Bladder Distention : Absent LANETTE ONTIVEROS 06/04/2012 1:40 CDT Integumentary Integumentary Patient Stated Symptoms : None Skin Turgor : Elastic Skin Integrity : Not intact Mucous Membrane Color : [place] Mucous Membrane Description : Moist Skin Color : Normal for ethnicity Skin Description : Dry Skin Temperature : Warm LANETTE ONTIVEROS RN - 06/04/2012 1:40 CDT Incision/Wound Incision/Wound Care Grid Activity : Assessed, Dressing intact Type : Surgical incision Location : Lower back Laterality : Central, Posterior Drainage : None Neurovascular Status : Neurovascular intact distal to injury, Pulses distal to injury palpable, Skindistal to injury warm and pink LANETTE ONTIVEROS RN - 06/04/2012 1:40 CDT Scott Sensory Perception Scott : Slightly limited Moisture Scott : Rarely moist Activity Scott : Walks occasionally Mobility Scott : Slightly limited Nutrition Scott : Adequate Friction and Shear Scott : Potential problem Scott Score : 18 LANETTE ONTIVEROS RN - 06/04/2012 1:40 CDT Musculoskeletal Activity Tolerance : Without distress LANETTE ONTIVEROS - 06/04/2012 1:40 CDT Musculoskeletal Strength Grid Left Upper Extremity Right Upper Extremity Left Lower Extremity Right Lower Extremity Strength : Strong to gravity and resistance Strong to gravity and resistance Strong to gravity and resistance Strong to gravity and resistance Dorsiflexion : Strong Strong Toe Extension : Strong Strong Plantar/Palmar Flexion : Strong Strong Sensation : Intact Intact Tingling Intact LANETTE ONTIVEROS RN - 06/04/2012 1:40 CDT LANETTE ONTIVEROS RN - 06/04/2012 1:40 CDT LANETTE ONTIVEROS - 06/04/2012 1:40 CDT LANETTE ONTIVEROS - 06/04/2012 1:40 CDT Peripheral IV Peripheral IV Assess/Intervention Grid Peripheral IV #1 IV Activity : Assessment Number of Attempts : 2 Date of Insertion : 06/03/2012 CDT IV Site : Hand Laterality : Left Catheter Size : 18 Catheter Type : Over the needle Infiltration Score : 0 Phlebitis Score : 0 LANETTE ONTIVEROS RN - 06/04/2012 1:40 CDT Hendrich II Fall Risk Confusion/Disorientation Hendrich : No Depression Fall Risk Hendrich : No Altered Elimination Fall Risk Hendrich : No Dizziness/Vertigo Fall Risk Hendrich : No Gender, Male Fall Risk Hendrich : No Prescribed Antiepileptics Hendrich : No Prescribed Benzodiazepines Hendrich : Yes Rising From Chair Fall Risk Hendrich : Pushes up, successful in one attempt Fall Risk Score Hendrich II : 2 LANETTE ONTIVEROS RN - 06/04/2012 1:40 CDT Safe Patient Movement Safe Pt Movement Independent : No Safe Pt Movement Supervision/Minimal Assistance : No Safe Pt Movement Moderate Assistance : Yes Mobility Status : Moderate assistance LANETTE ONTIVEROS RN - 06/04/2012 1:40 CDT Education General Patient Education [employer] Topics : Activity limitations/expectations, Equipment, Medication dosage, route, scheduling, Medication generic/brand names, purpose, action, Nutrition/Diet, Plan of care, Treatments/Procedures/Tests, Turn/Cough/Deep breathing, Use of pain scale(s) Individuals Taught : Patient Barriers to Learning : None evident Teaching Method : Explanation Teaching Evaluation : Verbalizes understanding LANETTE ONTIVEROS RN - 06/04/2012 1:40 CDT Source: [employer] Document Id: [id number] CDT!142 Miscellaneous - Dalia Biswas R.N. 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 She was to go home but had continuedpain. Called to room for hypertension and increased heart rate. Rapid Response Assessment : Pt crying and anxious when I arrived. Pt warm and dry. Color pink. I asked pt nurse to step out of room. Pt requests that she not have a male nurse. Rapid Response Recommendations : I taked with 2MS lead nurse. Pt nurse changed to a female. Pt heartrate decreased to 95 and BP 150/110. DALIA BISWAS RN - 06/03/2012 23:28 CDT Source: [employer] Document Id: [id number] CDT!20 Miscellaneous - Geni Chambers R.N. - 06/03/2012 10:40 PM CDT Adult Postprocedure Assessment Adult Postprocedure Assessment Entered On: 06/04/2012 4:21 CDT Performed On: 06/03/2012 22:40 CDT by GENI CHAMBERS RN Vital Signs Peripheral Pulse Rate : 105 /min (HI) Respiratory Rate : 18 /min Systolic Blood Pressure : 145 mmHg (HI) Diastolic Blood Pressure : 100 mmHg (>HHI) NIBP Mean : 115 mmHg BP Location : Left upper extremity SpO2 : 94 % Oxygen Saturation Monitoring Frequency : Intermittent Oxygen Therapy : Room air GENI CHAMBERS RN - 06/04/2012 4:20 CDT General Pain Symptoms : Yes GENI CHAMBERS RN - 06/04/2012 4:20 CDT Pain Pain Assessment Grid Pain 1 Location : Lower back Intensity : 5 Interventions : Medications, Repositioning, Rest GENI CHAMBERS RN - 06/04/2012 4:20 CDT Barrera Barrera Agitation Sedation Scale (RASS) : Alert and calm RASS Score : 0 GENI CHAMBERS RN - 06/04/2012 4:20 CDT Source: [employer] Document Id: [id number] CDT!22 Miscellaneous - Geni Chambers RDevynNDevyn - 06/03/2012 9:40 PM CDT Adult Postprocedure Assessment Adult Postprocedure Assessment Entered On: 06/04/2012 4:17 CDT Performed On: 06/03/2012 21:40 CDT by GENI CHAMBERS RN Vital Signs Temperature Core : 36.2 DegC(Converted to: 97.2 DegF) (LOW) Peripheral Pulse Rate : 108 /min (HI) Respiratory Rate : 20 /min Systolic Blood Pressure : 154 mmHg (HI) Diastolic Blood Pressure : 20 mmHg (<LLOW) NIBP Mean : 65 mmHg BP Location : Left upper extremity SpO2 : 95 % Oxygen Saturation Monitoring Frequency : Intermittent Oxygen Therapy : Room air GENI CHAMBERS RN - 06/04/2012 4:12 CDT General Pain Symptoms : Yes GENI CHAMBERS RN - 06/04/2012 4:12 CDT Pain Pain Assessment Grid Pain 1 Location : Lower back Intensity : 6 Interventions : Medications, Repositioning, Rest GENI CHAMBERS RN - 06/04/2012 4:12 CDT Barrera Barrera Agitation Sedation Scale (RASS) : Alert and calm RASS Score : 0 GENI CHAMBERS RN - 06/04/2012 4:12 CDT Source: [employer] Document Id: [id number] CDT!23 Miscellaneous - Geni Chambers RDevynNDevyn - 06/03/2012 8:40 PM CDT Adult Postprocedure Assessment Adult Postprocedure Assessment Entered On: 06/04/2012 4:12 CDT Performed On: 06/03/2012 20:40 CDT by GENI CHAMBERS RN Vital Signs Temperature Core : 36.4 DegC(Converted to: 97.5 DegF) (LOW) Peripheral Pulse Rate : 104 /min (HI) Respiratory Rate : 18 /min Systolic Blood Pressure : 134 mmHg Diastolic Blood Pressure : 78 mmHg NIBP Mean : 97 mmHg BP Location : Left upper extremity SpO2 : 96 % Oxygen Saturation Monitoring Frequency : Intermittent Oxygen Therapy : Room air GENI CHAMBERS RN - 06/04/2012 4:11 CDT Barrera Barrera Agitation Sedation Scale (RASS) : Alert and calm RASS Score : 0 GENI CHAMBERS RN - 06/04/2012 4:11 CDT Source: [facility] [employer] Document Id: [id number] CDT!15 Miscellaneous - Geni Chambers R.N. - 06/03/2012 7:40 PM CDT Adult Postprocedure Assessment Adult Postprocedure Assessment Entered On: 06/04/2012 3:35 CDT Performed On: 06/03/2012 19:40 CDT by GENI CHAMBERS RN Vital Signs Temperature Core : 36.4 DegC(Converted to: 97.5 DegF) (LOW) Peripheral Pulse Rate : 95 /min Respiratory Rate : 20 /min Systolic Blood Pressure : 134 mmHg Diastolic Blood Pressure : 77 mmHg NIBP Mean : 96 mmHg BP Location : Left upper extremity SpO2 : 93 % (LOW) Oxygen Saturation Monitoring Frequency : Intermittent Oxygen Therapy : Room air GENI CHAMBERS RN - 06/04/2012 3:25 CDT General Pain Symptoms : Yes GENI CHAMBERS RN - 06/04/2012 3:25 CDT Pain Pain Assessment Grid Pain 1 Location : Lower back Intensity : 5 Interventions : Medications, Repositioning, Rest GENI CHAMBERS RN - 06/04/2012 4:05 CDT Cardiovascular Heart Rhythm : Irregular Edema : Generalized Heart Sounds : S1S2 GENI CHAMBERS RN - 06/04/2012 4:05 CDT Respiratory Airway Type : None Respiratory Pattern : Regular Respirations : Unlabored All Lobes Breath Sounds : Clear GENI CHAMBERS RN - 06/04/2012 4:05 CDT GI/ Passing Flatus : No Bowel Sounds All Quadrants : Hypoactive GENI CHAMBERS RN - 06/04/2012 4:05 CDT Integumentary Integumentary Patient Stated Symptoms : None Skin Turgor : Tight Skin Integrity : Not intact Mucous Membrane Color : [place] Mucous Membrane Description : Moist GENI CHAMBERS RN - 06/04/2012 4:05 CDT Incision/Wound Incision/Wound Care Grid Activity : Assessed, Dressing intact Type : Surgical incision Location : Lower back Laterality : Central, Posterior Comment : no shadowing GENI CHAMBERS RN - 06/04/2012 4:05 CDT Peripheral IV Peripheral IV Assess/Intervention Grid Peripheral IV #1 IV Activity : Assessment Number of Attempts : 2 Date of Insertion : 06/03/2012 CDT IV Site : Hand Laterality : Left Catheter Size : 18 Catheter Type : Over the needle Site Condition : No complications Drainage Description : None Infiltration Score : 0 Phlebitis Score : 0 Dressing/ Activity : Dry, Intact, Transparent Flow/ Patency : No complications GENI CHAMBERS RN - 06/04/2012 4:05 CDT Neurologic Swallowing Difficulty/Aspiration Risk : None Extremity Movement : Equal GENI CHAMBERS RN - 06/04/2012 4:05 CDT Lower Extremity Nail Bed Color Feet Grid Left Foot : [place] Right Foot : [place] GENI CHAMBERS RN - 06/04/2012 4:05 CDT Capillary Refill Feet Grid Left Foot : < 2 seconds Right Foot : < 2 seconds GENI CHAMBERS RN - 06/04/2012 4:05 CDT Lower Extremity Peripheral Pulses Grid Posttibial Pulse, Left : 2+ Normal Posttibial Pulse, Right : 2+ Normal Dorsalis Pedis Pulse, Left : 2+ Normal Dorsalis Pedis Pulse, Right : 2+ Normal GENI CHAMBERS RN - 06/04/2012 4:05 CDT Lower Extremity Strength NV Grid Plantar Flexion Left Foot : Good 4 Plantar Flexion Right Foot : Good 4 Dorsiflex Foot/Extend Toes Left : Good 4 Dorsiflex Foot/Extend Toes Right : Good 4 GENI CHAMBERS RN - 06/04/2012 4:05 CDT Activity Patient Position : Elevate head of bed 30 degrees Activity Status ADL : Ambulating in room Activity Assistance : Stand-by assistance Assistive Device : None GENI CHAMBERS RN - 06/04/2012 4:05 CDT Barrera Barrera Agitation Sedation Scale (RASS) : Alert and calm RASS Score : 0 GENI CHAMBERS RN - 06/04/2012 4:05 CDT Scott Sensory Perception Scott : No impairment Moisture Scott : Rarely moist Activity Scott : Walks frequently Mobility Scott : No limitations Nutrition Scott : Adequate Friction and Shear Scott : No apparent problem Scott Score : 22 GENI CHAMBERS RN - 06/04/2012 4:05 CDT Hendrich II Fall Risk Confusion/Disorientation Hendrich : No Depression Fall Risk Hendrich : Yes Altered Elimination Fall Risk Hendrich : No Dizziness/Vertigo Fall Risk Hendrich : No Gender, Male Fall Risk Hendrich : No Prescribed Antiepileptics Hendrich : No Prescribed Benzodiazepines Hendrich : No Rising From Chair Fall Risk Hendrich : Pushes up, successful in one attempt Fall Risk Score Hendrich II : 3 GENI CHAMBERS RN - 06/04/2012 4:05 CDT Education General Patient Education Power[employer] Topics : Activity limitations/expectations, Medication dosage, route, scheduling, Medication generic/brand names, purpose, action, Plan of care, Unit procedures, Use of pain scale(s), When to call health care provider Individuals Taught : Patient Barriers to Learning : None evident Teaching Method : Explanation Teaching Evaluation : Needs further teaching, Needs reinforcement GENI CHAMBERS RN - 06/04/2012 4:05 CDT Source: [employer] Document Id: [id number] CDT!116 Miscellaneous - Ria Mays R.N. - 06/03/2012 6:32 PM CDT Adult Postprocedure Assessment Adult Postprocedure Assessment Entered On: 06/03/2012 18:33 CDT Performed On: 06/03/2012 18:32 CDT by RIA MAYS RN Vital Signs Peripheral Pulse Rate : 107 /min (HI) Respiratory Rate : 16 /min Systolic Blood Pressure : 131 mmHg Diastolic Blood Pressure : 83 mmHg NIBP Mean : 99 mmHg BP Location : Left upper extremity SpO2 : 93 % (LOW) Oxygen Therapy : Room air RIA MAYS RN - 06/03/2012 18:32 CDT General Pain Symptoms : Yes RIA MAYS RN - 06/03/2012 18:32 CDT Pain Pain Assessment Grid Pain 1 Location : Lower back Laterality : Left Intensity : 5 Interventions : Rest RIA MAYS RN - 06/03/2012 18:32 CDT Barrera Barrera Agitation Sedation Scale (RASS) : Alert and calm RASS Score : 0 RIA MAYS RN - 06/03/2012 18:32 CDT Source: [employer] Document Id: [id number] CDT!22 Jarred - Ria Mays R.N. - 06/03/2012 6:10 PM CDT Adult Postprocedure Assessment Adult Postprocedure Assessment Entered On: 06/03/2012 18:11 CDT Performed On: 06/03/2012 18:10 CDT by RIA MAYS RN Vital Signs Peripheral Pulse Rate : 103 /min (HI) Respiratory Rate : 16 /min Systolic Blood Pressure : 139 mmHg Diastolic Blood Pressure : 87 mmHg NIBP Mean : 104 mmHg BP Location : Left upper extremity SpO2 : 93 % (LOW) Oxygen Therapy : Room air RIA MAYS RN - 06/03/2012 18:10 CDT General Pain Symptoms : Yes RIA MAYS RN - 06/03/2012 18:10 CDT Pain Pain Assessment Grid Pain 1 Location : Lower back Laterality : Left Intensity : 6 Interventions : Repositioning, Rest RIA MAYS RN - 06/03/2012 18:10 CDT Barrera Barrera Agitation Sedation Scale (RASS) : Alert and calm RASS Score : 0 RIA MAYS RN - 06/03/2012 18:10 CDT Source: [employer] Document Id: [id number] CDT!22 Jarred - Ria Mays R.N. - 06/03/2012 5:40 PM CDT Adult Postprocedure Assessment Adult Postprocedure Assessment Entered On: 06/03/2012 17:41 CDT Performed On: 06/03/2012 17:40 CDT by RIA MAYS RN Vital Signs Peripheral Pulse Rate : 104 /min (HI) Respiratory Rate : 16 /min Systolic Blood Pressure : 149 mmHg (HI) Diastolic Blood Pressure : 85 mmHg NIBP Mean : 106 mmHg BP Location : Left upper extremity SpO2 : 95 % Oxygen Therapy : Room air RIA MAYS RN - 06/03/2012 17:40 CDT General Pain Symptoms : Yes RIA MAYS RN - 06/03/2012 17:40 CDT Pain Pain Assessment Grid Pain 1 Location : Lower back Intensity : 6 Interventions : Rest RIA MAYS RN - 06/03/2012 17:40 CDT Barrera Barrera Agitation Sedation Scale (RASS) : Alert and calm RASS Score : 0 RIA MAYS RN - 06/03/2012 17:40 CDT Source: [employer] Document Id: [id number] CDT!21 Miscellaneous - Ria Mays R.N. - 06/03/2012 5:24 PM CDT Adult Postprocedure Assessment Adult Postprocedure Assessment Entered On: 06/03/2012 17:25 CDT Performed On: 06/03/2012 17:24 CDT by RIA MAYS RN Vital Signs Peripheral Pulse Rate : 106 /min (HI) Respiratory Rate : 16 /min Systolic Blood Pressure : 138 mmHg Diastolic Blood Pressure : 94 mmHg (>HHI) NIBP Mean : 109 mmHg BP Location : Left upper extremity SpO2 : 94 % Oxygen Therapy : Room air RIA MAYS RN - 06/03/2012 17:24 CDT General Pain Symptoms : Yes RIA MAYS RN - 06/03/2012 17:24 CDT Pain Pain Assessment Grid Pain 1 Location : Lower back Laterality : Left Intensity : 6 Interventions : Rest RIA MAYS RN - 06/03/2012 17:24 CDT Barrera Barrera Agitation Sedation Scale (RASS) : Alert and calm RASS Score : 0 RIA MAYS RN - 06/03/2012 17:24 CDT Source: [employer] Document Id: [id number] CDT!22 Jarred - Ria Mays R.N. - 06/03/2012 5:09 PM CDT Adult Postprocedure Assessment Adult Postprocedure Assessment Entered On: 06/03/2012 17:09 CDT Performed On: 06/03/2012 17:09 CDT by RIA MAYS RN Vital Signs Peripheral Pulse Rate : 100 /min Systolic Blood Pressure : 142 mmHg (HI) Diastolic Blood Pressure : 83 mmHg NIBP Mean : 103 mmHg BP Location : Right upper extremity SpO2 : 93 % (LOW) Oxygen Therapy : Room air RIA MAYS RN - 06/03/2012 17:09 CDT General Pain Symptoms : Yes RIA MAYS RN - 06/03/2012 17:09 CDT Pain Pain Assessment Grid Pain 1 Location : Lower back Laterality : Left Intensity : 6 Interventions : Medications, Rest RIA MAYS RN - 06/03/2012 17:09 CDT Barrera Barrera Agitation Sedation Scale (RASS) : Alert and calm RASS Score : 0 RIA MAYS RN - 06/03/2012 17:09 CDT Source: [employer] Document Id: [id number] CDT!21 Jarred - Ria Mays R.N. - 06/03/2012 4:59 PM CDT Valuables/Belongings Valuables/Belongings Entered On: 06/03/2012 16:59 CDT Performed On: 06/03/2012 16:59 CDT by RIA MAYS RN Valuables/Belongings Valuables/Belongings Grid Valuables at Bedside Clothes, Patient Valuables : Jacket, Pants, Shirt, Shoes, Undergarments Electronic Devices : Cell phone Monetary Items : Purse, Wallet Personal Devices : Glasses RIA MAYS RN - 06/03/2012 16:59 CDT Room Orientation/Facility Policy Reviewed : Yes Home Medication Disposition : Sent home with family RIA MAYS RN - 06/03/2012 16:59 CDT [facility] Document Id: [id number] CDT!10 Miscellaneous - Ria Mays R.N. - 06/03/2012 4:54 PM CDT Adult Postprocedure Assessment Adult Postprocedure Assessment Entered On: 06/03/2012 16:54 CDT Performed On: 06/03/2012 16:54 CDT by RIA MAYS RN Vital Signs Peripheral Pulse Rate : 106 /min (HI) Respiratory Rate : 16 /min Systolic Blood Pressure : 137 mmHg Diastolic Blood Pressure : 83 mmHg NIBP Mean : 101 mmHg BP Location : Left upper extremity SpO2 : 95 % Oxygen Therapy : Room air RIA MAYS RN - 06/03/2012 16:54 CDT General Pain Symptoms : Yes RIA MAYS RN - 06/03/2012 16:54 CDT Pain Pain Assessment Grid Pain 1 Location : Lower back Laterality : Left Intensity : 6 Interventions : Rest RIA MAYS RN - 06/03/2012 16:54 CDT Barrera Barrera Agitation Sedation Scale (RASS) : Alert and calm RASS Score : 0 RIA MAYS RN - 06/03/2012 16:54 CDT [facility] Document Id: [id number] CDT!22 Miscellaneous - Ria Mays R.N. - 06/03/2012 4:39 PM CDT Adult Postprocedure Assessment Adult Postprocedure Assessment Entered On: 06/03/2012 16:41 CDT Performed On: 06/03/2012 16:39 CDT by RIA MAYS RN Vital Signs Temperature Core : 36.8 DegC(Converted to: 98.2 DegF) Peripheral Pulse Rate : 105 /min (HI) Respiratory Rate : 16 /min Systolic Blood Pressure : 131 mmHg Diastolic Blood Pressure : 79 mmHg NIBP Mean : 96 mmHg BP Location : Left upper extremity SpO2 : 94 % Oxygen Therapy : Room air DAVON RIADARSHANA Mancera RN - 06/03/2012 16:39 CDT General Level of Consciousness : Alert Orientation : Oriented x 3 Skin Color : Normal for ethnicity Skin Description : Dry Skin Temperature : Warm Pain Symptoms : Yes JONLUZMAANAISRIADARSHANA Mancera RN - 06/03/2012 16:39 CDT Pain Pain Assessment Grid Pain 1 Location : Lower back Laterality : Left Intensity : 6 Interventions : Repositioning, Rest RIA MAYS RN - 06/03/2012 16:39 CDT Cardiovascular Heart Rhythm : Regular RIA MAYS RN - 06/03/2012 16:39 CDT Respiratory Respiratory Pattern : Regular Respirations : Unlabored RIA MAYS RN - 06/03/2012 16:39 CDT Integumentary Skin Integrity : Not intact Skin Color : Normal for ethnicity Skin Description : Dry Skin Temperature : Warm RIA MAYS RN - 06/03/2012 16:39 CDT Incision/Wound Incision/Wound Care Grid Activity : Assessed Type : Surgical incision Location : Lower back Wound Dressing : Gauze bandage RIA MAYS RN - 06/03/2012 16:39 CDT Peripheral IV Peripheral IV Assess/Intervention Grid Peripheral IV #1 IV Activity : Assessment Number of Attempts : 2 Date of Insertion : 06/03/2012 CDT IV Site : Hand Laterality : Left Catheter Size : 18 Catheter Type : Over the needle RIA MAYS RN - 06/03/2012 16:39 CDT Barrera Barrera Agitation Sedation Scale (RASS) : Alert and calm RASS Score : 0 RIA MAYS - 06/03/2012 16:39 CDT [facility] Document Id: [id number] CDT!55 Miscellaneous - Conversion, Historical Provider Ser - 06/03/2012 3:51 PM CDT Inpatient Patient Education The following Patient Education Materials have been given to the patient: Patient Education Materials: No instructions were provided. No instructions were provided. Source: [facility] Collarity Document Id: [id number] Miscellaneous - Erica Barnes RDevynN. - 06/03/2012 11:32 AM CDT Adult Admission History Document Has Been Updated Adult Admission History Entered On: 05/30/2012 9:20 CDT Performed On: 06/03/2012 11:32 CDT by ERICA BARNES RN General Info Mode of Arrival : Ambulatory RIA MAYS RN - 06/03/2012 11:32 CDT Preferred Name : MIRELLA Accompanied By : Spouse Preferred Communication Mode : Verbal Information Given By : Patient Languages : Guinean Status : Patient denies ERICA BARNES RN - 05/30/2012 9:18 CDT Allergy (As Of: 05/30/2012 09:28:00 CDT) Allergies (Active) codeine Estimated Onset Date: Unspecified ; Reactions: confusion ; Created By: LILIANE WHITE RN; Reaction Status: Active ; Category: Drug ; Substance: codeine ; Type: Side Effect ; Severity: Severe ; Updated By: LILIANE WHITE RN; Source: Patient ; Reviewed Date: 05/20/2012 12:45 CDT Problem List/Diagnoses (As Of: 05/30/2012 09:28:00 CDT) Problems(Active) Agoraphobia with Panic Disorder (ICD-9-CM :300.21 ) Name of Problem: Agoraphobia with Panic Disorder; Recorder: ANNMARIE JUSTICE LPN; Confirmation: Confirmed ; Classification: Nursing ; Code: 300.21 ; Contributor System: Spotivate ; Last Updated: 10/03/2010 8:15 CDT ; Life Cycle Date: 04/12/2010 ; Life Cycle Status: Active ; Responsible Provider: ANNMARIE JUSTICE LPN; Vocabulary: ICD-9-CM ; Comments: 10/03/2010 8:15 - LILIANE PEDERSON LPN noknown date of onset Asthma, Unspecified (ICD-9-CM :493.90 ) Name of Problem: Asthma, Unspecified ; Recorder: ANNMARIE JUSTICE LPN; Confirmation: Confirmed ; Classification: Nursing ; Code: 493.90 ; Contributor System: PowerChart ; Last Updated: 04/12/2010 13:48 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 ; Life Cycle Date: 04/12/2010 ; Life Cycle Status: Active ; Responsible Provider: ANNMARIE JUSTICE LPN; Vocabulary: ICD-9-CM ; Comments: 10/03/2010 8:15 - LILIANE PEDERSON CHARI no known date of onset Dysthymic Disorder (ICD-9-CM :300.4 ) Name of Problem: Dysthymic Disorder ; Onset Date: 1995 ; Recorder: GIULIANO KITCHEN NP; Confirmation: Confirmed ; Classification: Medical ; Code: 300.4 ; Contributor System: PowerChart ; Last Updated: 10/03/2010 9:00 CDT ; Life Cycle Date: 10/03/2010 ; Life CycleStatus: Active ; Responsible Provider: GIULIANO KITCHEN NP; Vocabulary: ICD-9-CM Low back pain* (ICD-9-CM :724.2 ) Name of Problem: Low back pain* ; Onset Date: 2009 ; Recorder: GIULIANO KITCHEN NP; Confirmation: Confirmed ; Classification: Medical ; Code: 724.2 ; Contributor System: PowerChart ; Last Updated: 08/18/2011 9:00 CDT ; Life Cycle Date: 08/18/2011 ; Life Cycle Status:Active ; Responsible Provider: GIULIANO KITCHEN NP; Vocabulary: ICD-9-CM Post-traumatic stress disorder (PTSD) (ICD-9-CM :309.81 ) Name of Problem: Post- traumatic stress disorder (PTSD) ; Onset Date: 1994 ; Recorder: ANNMARIE JUSTICE LPN; Confirmation: Confirmed ; Classification: Nursing ; Code: 309.81 ; Contributor System: PowerChart ; Last Updated: 10/03/2010 8:15 CDT ;Life Cycle Date: 04/12/2010 ; Life Cycle Status: Active ; Responsible Provider: ANNMARIE JUSTICE LPN; Vocabulary: ICD-9-CM Restless legs syndrome (ICD-9-CM :333.94 ) Name of Problem: Restless legs syndrome ; Onset Date: 1999 ; Recorder: GIULIANO KITCHEN NP; Confirmation: Confirmed ; Classification: Medical ; Code: 333.94 ; Contributor System: PowerChart ; Last Updated: 11/03/2011 13:18 CDT ; Life Cycle Date: 02/10/2011 ; Life Cycle Status: Active ; Responsible Provider: GIULIANO KITCHEN NP; Vocabulary: ICD-9-CM Anesth/Transfusion Anesthesia/Transfusions : Prior anesthesia, Prior anesthesia reaction Anesthesia Reaction : Other: felt not breathing well states she used her inhaler and felt better after.She will use prior to coming in and have it with her on admit ERICA BARNES RN - 05/30/2012 9:18 CDT ID Screen Drug Resistant Organism : No ERICA BARNES RN - 05/30/2012 9:18 CDT Nutrition Nutrition Risk Factors by History Adult : None Home Diet : Regular ERICA BARNES RN - 05/30/2012 9:18 CDT Home Environment Current Daily Living Assistance : None Living Situation : Home with family USP Equipment : None Sensory Deficits : None Mobility Assistance Prior to Admission : Independent Current Home Treatments : None Professional Skilled Services : None Special Services and Community Resources : None ERICA BARNES RN - 05/30/2012 9:18 CDT Dependent Habits Tobacco Use/Currently Using : No Smoking Status : Never smoker ERICA BARNES RN - 05/30/2012 9:18 CDT Tobacco Use Grid Last Use : never ERICA BARNES RN - 05/30/2012 9:18 CDT Alcohol Use : No ERICA BARNES RN - 05/30/2012 9:18 CDT Caffeine Use Grid Caffeine Use : None ERICA BARNES RN - 05/30/2012 9:18 CDT Recreational Drug Use Grid Drug Use : None ERICA BARNES RN - 05/30/2012 9:18 CDT Psychosocial Adult Domestic Abuse Concerns : None Concerns About Family Members at Home : No Emotional Support Available : Yes Chronic/Terminal Illness Freq Visits : No Financial Concerns Regarding Hospitalization/Discharge : No Coping : Effective ERICA BARNES RN - 05/30/2012 9:18 CDT Advance Directive Advanced Directives : No Advance Directive Additional Information : No ERICA BARNES RN - 05/30/2012 9:18 CDT Educ Needs Patient/Family Education Needs : Activity limitations/expectations, Equipment, Exercise, Hygiene, Medications, Nutrition/Diet, Pain management, Plan of care, Postoperative instructions ERICA BARNES RN - 05/30/2012 9:18 CDT Learning Style Preference Adult Grid Patient : Printed materials, Verbal explanation Family : Printed materials, Verbal explanation (Comment: TWIN [ERICA BARNES Alina RN - 05/30/2012 9:27 CDT] ) ERICA BARNES RN - 05/30/2012 9:18 CDT Source: [facility] Collarity Document Id: [id number] CDT!3 Miscellaneous - Ria Mays R.N. - 06/03/2012 11:30 AM CDT Adult Admission Assessment Adult Admission Assessment Entered On: 06/03/2012 11:31 CDT Performed On: 06/03/2012 11:30 CDT by RIA MAYS RN Respiratory Respiratory Patient Stated Symptoms : None Respirations : Unlabored Respiratory Pattern : Regular All Lobes Breath Sounds : Clear Cough : None RIA MAYS RN - 06/03/2012 11:30 CDT Cardiovascular Heart Rhythm : Regular Antiembolism Device : Sequential Compression Device Antiembolism Device Laterality : Bilateral RIA MAYS RN - 06/03/2012 11:30 CDT Neurological Neuro Patient Stated Symptoms : None Orientation : Oriented x 3 Level of Consciousness : Alert Gait : Steady Swallowing Difficulty/Aspiration Risk : None RIA MAYS RN - 06/03/2012 11:30 CDT Psycho/Emotional Pain Symptoms : Yes Affect/Behavior : Calm, Cooperative, Appropriate Feels Rested : Yes RIA MAYS RN - 06/03/2012 11:30 CDT Coping Grid Family supportive and involved in care : Yes RIA MAYS RN - 06/03/2012 11:30 CDT Safety Grid Vision, Hearing, Mobility Adequate to Meet Safety Needs : Yes RIA MAYS RN - 06/03/2012 11:30 CDT Pain Pain Assessment Grid Pain 1 Location : Lower back Laterality : Left Intensity : 3 Pain Radiation : Yes Radiation Characteristics : down left leg RIA MAYS RN - 06/03/2012 11:30 CDT Gastrointestinal GI Patient Stated Symptoms : None RIA MAYS RN - 06/03/2012 11:30 CDT Genitourinary Patient Stated Symptoms : None RIA MAYS RN - 06/03/2012 11:30 CDT Integumentary Skin Integrity : Intact Skin Color : Normal for ethnicity Skin Description : Dry Skin Temperature : Warm RIA MAYS RN - 06/03/2012 11:30 CDT Scott Sensory Perception Scott : No impairment Moisture Scott : Rarely moist Activity Scott : Walks frequently Mobility Scott : No limitations Nutrition Scott : Excellent Friction and Shear Scott : No apparent problem Scott Score : 23 RIA MAYS RN - 06/03/2012 11:30 CDT Musculoskeletal Musculoskeletal Patient Stated Symptoms : Other: pain RIA MAYS Teri RN - 06/03/2012 11:30 CDT Peripheral IV Peripheral IV Assess/Intervention Grid Peripheral IV #1 IV Activity : Start Number of Attempts : 2 RIA MAYS Teri RN - 06/03/2012 11:55 CDT Date of Insertion : 06/03/2012 CDT IV Site : Hand RIA MAYS Teri RN - 06/03/2012 11:55 CDT Laterality : Left RIA MAYS Teri RN - 06/03/2012 11:55 CDT Catheter Size : 18 RIA MAYS - 06/03/2012 11:55 CDT Catheter Type : Over the needle Site Condition : No complications Dressing/ Activity : Dry, Intact, Transparent RIA MAYS Teri RN - 06/03/2012 11:30 CDT Source: [employer] Document Id: [id number] CDT!8 documented in this encounter Plan of Treatment Not on filedocumented as of this encounter Procedures Procedure Name Priority Date/Time Associated Diagnosis Comme nts SURGICAL PATHOLOGY Routine 06/03/2012 4:26 PM Res ults for this CDT procedure are i n the results section. DX SPINE 1 VIEW Routine 06/03/2012 1:12 PM Result s for this CDT procedure are i n the results section. documented in this encounter Results Pathology Surgical Pathology (06/03/2012 4:26 PM CDT) Specimen (Source) Anatomical Collection Method Collection Time Re ceived Time Location / / Volume Laterality 06/03/2012 4:26 PM CDT Narrative [facility] LAB - 06/04/2012 10:09 AM CDT [facility] [place] [address] [place] [address] Patient Name: MIRELLA EDWARDS Patient ID #: [id number] Collected: 06/03/2012 Address: [facility]/State/Zip: [address] [place] [address] ??[phone] Received: Reported: 06/03/2012 06/04/2012 Soc. Sec. #: ?/Age/Sex 1975 (Age: 36) ??F Physician(s): SAIDA BEASLEY MD Copy To: ? [facility] IN [facility] ??[id number] [address] [place] [address], ??[place] ??[id number] SURGICAL PATHOLOGY REPORT FINAL DIAGNOSIS: SOFT TISSUE, L4-5: --- DEGENERATING FIBROCARTILAGE. Signed Copy in Chart pap/06/04/2012 MICHELLE GARCIA M.D. SPECIMEN(S) RECEIVED: L4-5 DISC GROSS DESCRIPTION: Submitted as L4-5 disc are pink white fr agments aggregating to 2 x 1 x 0.3 cm. ESB, one cassette. ([id number]) EAE/BRIGETTE/06/03/2012 MICROSCOPIC DESCRIPTION: Reviewed by Michelle Garcia M.D.; Pathol ogist BRIGETTE/06/04/2012 Shonda Beasley M.D. LAB SURG PATH ORDERABLES Performing Organization Address [facility]/ZIP Code Phon e Number LCM LAB Dx Spine 1 View (06/03/2012 1:12 PM CDT) Anatomical Region Laterality Modality Spine N/A Radiographic Imaging Specimen (Source) Anatomical Collection Method Collection Time Re ceived Time Location / / Volume Laterality 06/03/2012 1:12 PM CDT Addenda Addendum by Provider, Dave Arce 06/03/2012 1:12 PM CDT RAD^^^MA XR Lumbar Spine 1 view portable 06/03/2012 13:12:00 Narrative 06/03/2012 1:35 PM CDT Technique: Fluoroscopic assistance provi ded for laminectomy. No prior studies are available for emelina rison. Findings/impression: Hardware projects o mag the posterior L4-S1 region. Please followup operative report for details. Total fluoroscopic time was 2 seconds. Procedure Note Feliz Judd M.D. / Provider, Jalyn mancera M.D. - 06/23/2016 Technique: Fluoroscopic assistance provi ded for laminectomy. No prior studies are available for emelina rison. Findings/impression: Hardware projects o mag the posterior L4-S1 region. Please followup operative report for details. Total fluoroscopic time was 2 seconds. 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
--- OUTSIDE RECORDS SUMMARY | 2021-12-12 09:59 | XMS_ITS | Encounter Summary ---
:1975 Author Organization [facility] Address [address] [place] [address] Care Team Providers Name Role Phone Unavailable Primary Care Provider Unavailable Encounter Details Date Type Department Care Team Description 03/01/2012 Hospital Encounter HX [facility] XRAY Provider, Histori eda Social History Tobacco Use Types Packs/Day Years Used Date Smoking Tobacco: Never Assessed Sex Assigned at Date Recorded Not on file documented as of this encounter Plan of Treatment Not on filedocumented as of this encounter Visit Diagnoses Not on filedocumented in this encounter Additional Health Concerns Assessment Noted Time PHQ-9 Depression Total Score: 7 01/01/2012 2: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
--- OUTSIDE RECORDS SUMMARY | 2021-12-12 09:59 | XMS_ITS | Encounter Summary ---
:1975 Author Organization [facility] Address [address] [place] [address] Care Team Providers Name Role Phone Unavailable Primary Care Provider Unavailable Encounter Details Date Type Department Care Team Description 07/26/2012 Hospital Encounter HX [facility] Wyatt Hirsch, N.P. [address] [place] [phone] (Wo rk) Social History Tobacco Use Types Packs/Day Years Used Date Smoking Tobacco: Never Assessed Sex Assigned at Date Recorded Not on file documented as of this encounter Consult Notes Conversion, Historical Provider Ser - 07/26/2012 4:47 PM CDT [id number] CHIEF COMPLAINT/REASON FOR VISIT Initial wellness coaching visit around the area of depression/anxiety. HISTORY OF PRESENT ILLNESS In today's first consult with patient for her wellness coaching visit, she is interested in working around the areas of depression and anxiety along with weight loss. She currently takes Effexor daily and has also realized that she had anxiety about 15 years ago. She feels that she needs to work on social settings, both small and large in going out. She is uncomfortable around people that she does not know. She also struggles with panic attacks and also anticipatory anxiety, possible posttraumatic stress and agoraphobia. In addition to this, she is interested in losing weight. She would like to lose at least 100 pounds and her is very supportive in her weight loss goal but is also considered to be her safe person but does not fully understand her anxiety or depression. She also shares that she used to be angry about her anxiety and depression but now she is more open and does tell peopleabout her areas of struggle which has been a huge relief for her. We did talk about my area of scope with wellness coaching and what I would be able to help her with and also what the role of a therapist or psychologist would be in helping her move through some of these behavioral health issues. Patient is interested in getting onto Barb's calendar to work on her anxiety and depression issues and together we can work together to implement goals and strategies that and Barb come up with in their sessions together. Objective information: She rates her stress level 5 out of 10, her mood a 7 out of 10. Her sleep a 5out of 10 and her movement is 3 to 5 times weekly for a 30- minute walk. She also indicates that her sleep trouble is due to back surgery that is an issue for her ongoing. IMPRESSION/REPORT/PLAN New goals set: 1. A goal setting worksheet that she will complete. She rates this 10 out of 10 for level of importance, 10 out of 10 for confidence level and she is in the area of contemplation as far as her stage of change. I have added her to Barb's calendar of people for her to contact when she isready to see patients as the patient is very interested in meeting with her as well. PLAN: Will see Mirella as she desires moving forward to create a wellness vision for her and also working collaboratively with Barb around the area of anxiety, stress and depression. 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
--- OUTSIDE RECORDS SUMMARY | 2021-12-12 09:59 | XMS_ITS | Encounter Summary ---
:1975 Author Organization [facility] Address [address] [place] [address] Care Team Providers Name Role Phone Unavailable Primary Care Provider Unavailable Encounter Details Date Type Department Care Team Description 11/01/2011 Hospital Encounter [facility]X [facility] [place]onda [place].N. [address] [id number] Social History Tobacco Use Types Packs/Day Years Used Date Smoking Tobacco: Never Assessed Sex Assigned at Date Recorded Not on file documented as of this encounter Miscellaneous Notes Telephone Encounter - Suri Carpenter R.N. - 11/01/2011 12:00 AM CDT [id number] Patient calling stating she is have back pain again. She sees Dr. Browne and would like a spine injection. She last had one in June. She would like appt today , preferably this AM . Pain started on Sunday. Nurse reviewed schedules and called down to ortho. The soonest appt available to see orthopedi cs for back problems would be Nov 19, with Hollie or Jeevan, or on the with Dr. Le. Dr. Browne and Jeevan both go to [facility]. Dr. Browne will be in [facility] on Sunday this Week nurse encouraged pt to call there. Pt was in tears. Nurse encouraged this pt that if she is unable to get in with DR. Browneon Sunday , to make an appt with her pcp until she can get in to address her pain. Pt stated her PCPis on Maternity leave. Nurse Informed pt if her PCP is on maternity leave they should have a provider willing to see her patients while out of clinic or nurse offered an appt with this clinic in [place] to address pain until pt is seen in ortho. Pt has no emergent symptoms per protocol Telephone Triage protocols for nurses by Olga Neri 4th addition pg [id number]. Back Pain. Pt refused an appt in [place] for today. Nurse again encouraged pt to call [facility] to discuss scheduling an appt for Sunday or their next available. Nurse then called over to to discuss with Ortho /specialty dept who stated theycould get pt in on Nov 06 . They will call pt to offer an appt for Nov [address] Browne. Source: [facility] Document Id: [id number] Electronically signed by Conversion, [facility] Stem Threshing Machine Operator [id number] at 07/08/2016 5:03 PM CDT documented in this encounter Plan of Treatment Not on filedocumented as of this encounter Visit Diagnoses Not on filedocumented in this encounter
--- OUTSIDE RECORDS SUMMARY | 2021-12-12 09:59 | XMS_ITS | Encounter Summary ---
:1975 Author Organization [facility] Address [address] [place] [address] Care Team Providers Name Role Phone Unavailable Primary Care Provider Unavailable Encounter Details Date Type Department Care Team Description 02/26/2012 Hospital Encounter HX [facility] Berny Bray M.D. [address] [place] [address] [phone] (Wo rk) Social History Tobacco Use Types Packs/Day Years Used Date Smoking Tobacco: Never Assessed Sex Assigned at Date Recorded Not on file documented as of this encounter Last Filed Vital Signs Vital Sign Reading Time Taken Comments Blood Pressure 152/105 02/26/2012 11:19 AM [facility] [employer] Pulse - - Temperature - - Respiratory Rate 20 02/26/2012 11:01 AM [employer] Oxygen Saturation - - Inhaled Oxygen Concentration - - Weight 124 kg (273 lb 13 oz) 02/26/2012 9:16 AM [employer] Height 160 cm (5' 2.99) 02/26/2012 9:16 AM [employer] Body Mass Index 48.52 02/26/2012 9:16 AM [employer] documented in this encounter Discharge Summaries Ascencion Silvestre R.N. - 02/26/2012 11:21 AM CST ED Discharge Instructions [address] [address] Name: DAX EDWARDS Date of : 1975 12:00 AM Visit Date: 02/26/2012 9:03 AM [facility] Number: [id number] Address: [address] [place] [phone] Primary Care Provider: NORI HIRSCH NP IMPORTANT: [facility] [place] would like to thank you for allowing us to assist you with your healthcare needs. The following includes patient education materials and informationregarding your injury/illness. Chief Complaint: Fall; Fall; Back injury; Back injury; fell at work/pinched nerve Follow-Up Instructions: With: Address: When: [facility] [place] [facility], [address] [place] [address], [id number] Business (1) 03/04/2012 11:00:00 Comments: Physical Therapy is Scheduled with Martha PT: Please fill out Patient History & Information, and required forms with signatures needed With: Address: When: NORI HIRSCH [address] [place] [phone] Business (1) 02/27/2012 10:30:00 Comments: Follow Up Fall/back pain- Work Status Patient Education Materials: [id number] BACK SPRAIN or STRAIN You have injured the muscles (strain) or ligaments (sprain) around the spine. This may occur after asudden forceful twisting or bending force (such as in a car accident), after a simple awkward movement, or after lifting something heavy with poor body positioning. In either case, muscle spasm is often present and adds to the pain. A back sprain or muscle strain usually gets better in 1-2 weeks. Unless you had a forceful physical injury (for example, a car accident or fall), X-rays are usually not ordered for the initial evaluation of a back sprain or strain. If pain continues and dose not respond to medical treatment, x-rays and other tests may be performed at a later time. HOME CARE: 1. You may need to stay in bed the first few days. But, as soon as possible, begin sitting or walking to avoid problems with prolonged bed rest (muscle weakness, worsening back stiffness and pain, blood clots in the legs). 2. When in bed, try to find a position of comfort. A firm mattress is best. Try lying flat on your back with pillows under your knees. You can also try lying on your side with your knees bent up towards your chest and a pillow between your knees. 3. Avoid prolonged sitting. This puts more stress on the lower back than standing or walking. 4. During the first two days after injury, apply an ICE PACK to the painful area for 20 minutes every 2-4 hours. This will reduce swelling and pain. HEAT (hot shower, hot bath or heating pad) works well for muscle spasm. You can start with ice, then switch to heat after two days. Some patients feel best alternating ice and heat treatments. Use the one method that feels the best to you. 5. You may use acetaminophen (Tylenol) or ibuprofen (Motrin, Advil) to control pain, unless another pain medicine was prescribed. [NOTE: If you have chronic liver or kidney disease or ever had a stomach ulcer or GI bleeding, talk with your doctor before using these medicines.] 6. Be aware of safe lifting methods and do not lift anything over 15 pounds until all the pain is gone. FOLLOW UP with your doctor or this facility if your symptoms do not start to improve after one week.Physical therapy or further tests may be needed. [NOTE: If X-rays were taken, they will be reviewed by a radiologist. You will be notified of any newfindings that may affect your care.] GET PROMPT MEDICAL ATTENTION if any of the following occur: ?? Pain becomes worse or spreads to your arms or legs ?? Weakness or numbness in one or both arms or legs ?? Loss of bowel or bladder control Numbness in the groin or genital area ?? [id number] [employer], [address] [place] [address], [place] [address]. All rights reserved. This information is not intended as a substitute for professional medical care. Always follow your healthcare professional's instructions. [id number] EXERCISES TO STRENGTHEN YOUR LOWER BACK Strong lower-back and abdominal muscles work together to support your spine. These exercises will help strengthen the muscles of the lower back. It is important that you begin exercising slowly and increase levels gradually. Always begin any exercise program with stretching. If you feel pain while doing any of these exercises, stop and talk to your doctor about a more specific exercise program that suits your condition better. LOW BACK STRETCH ?? Lie on your back with your knees bent and both feet on the ground. ?? Slowly raise your left knee to your chest as you flatten your lower back against the floor. Hold for 5 seconds. ?? Relax and repeat the exercise with your right knee. ?? Do 10 of these exercises for each leg. ?? Repeat hugging both knees to your chest at the same time. BUILDING LOWER BACK STRENGTH 1. Kneeling Lumbar Extension: Begin on your hands and knees. Simultaneously raise and straighten your right arm and left leg until they are parallel to the ground. Hold for 2 seconds and come back slowly to a starting position. Repeat with left arm and right leg, alternating 10 times. 2. Prone Lumbar Extension: Lie face down, arms extended overhead, palms on the floor. Simultaneouslyraise your right arm and left leg as high as comfortably possible. Hold for 10 seconds and slowly return to start. Repeat with left arm and right leg, alternating 10 times. Gradually build up to 20 times. (Advanced: Repeat this exercise raising both arms and both legs a few inches off the floor at thesame time. Hold for 5 seconds and release.) 3. Pelvic Tilt: Lie on the floor on your back with your knees bent at 90 degrees. Your feet should be flat on the floor. Inhale, exhale, then slowly contract your abdominal muscles bringing your navel toward your spine. Let your pelvis rock back until your lower back is flat on the floor. Hold for 10 seconds while breathing smoothly. Abdominal Crunch: Perform a Pelvic Tilt (above) flattening your lower back against the floor. Holding the tension in your abdominal muscles, take another breath and raise your shoulder blades off the ground (this is not a full sit- up). Keep your head in line with your body (dont bend your neck forward). Hold for 2 seconds, then slowly lower. ?? [id number] [employer], [address] [place] [address], [place] [address]. All rights reserved. This information is not intended as a substitute for professional medical care. Always follow your healthcare professional's instructions. [id number] SCIATICA Sciatica (Lumbar Radiculopathy) causes a pain that spreads from the lower back down into the buttock, hip and leg. Sometimes leg pain can occur without any back pain. Sciatica is due to irritation orpressure on a spinal nerve as it comes out of the spinal canal. This is most often due to a bulge orrupture of a nearby spinal disk (the cartilage cushion between each spinal bone), which presses on anearby nerve. Other causes include spinal stenosis (narrowing of the spinal canal) and spasm of the pyriform muscle (a muscle in the buttocks that the sciatic nerve passes through). Sciatica may begin after a sudden twisting/bending force (such as in a car accident), or sometimes after a simple awkward movement. In either case, muscle spasm is commonly present and contributes to the pain. The diagnosis of sciatica is made from the symptoms and physical exam. Unless you had a physical injury (such as a car accident or fall), X-rays are usually not ordered for the initial evaluation of sciatica because the nerves and disks cannot be seen on an x-ray. If signs of a compressed nerve are present (for example, loss of tendon reflex or strength in the leg), an MRI (magnetic resonance imaging) scan will need to be scheduled as an outpatient. Most sciatica (80-90%) gets better with medicine, exercise, physical therapy. If symptoms continue after at least three months of medical treatment, surgery may be considered. HOME CARE: 1. You may need to stay in bed the first few days. But, as soon as possible, begin sitting or walking to avoid problems with prolonged bed rest. 2. When in bed, try to find a position of comfort. A firm mattress is best. Try lying flat on your back with pillows under your knees. You can also try lying on your side with your knees bent up towards your chest and a pillow between your knees. 3. Avoid prolonged sitting. This puts more stress on the lower back than standing or walking. 4. Some persons find relief with heat (hot shower, hot bath or heating pad) and massage, while others prefer cold packs (crushed or cubed ice in a plastic bag, wrapped in a towel). Try both and use themethod that feels best for 20 minutes several times a day. 5. You may use acetaminophen (Tylenol) or ibuprofen (Motrin, Advil) to control pain, unless another pain medicine was prescribed. [ NOTE: If you have chronic liver or kidney disease or ever had a stomach ulcer or GI bleeding, talk with your doctor before using these medicines.] 6. Be aware of safe lifting methods and do not lift anything over 15 pounds until all the pain is gone. FOLLOW UP with your doctor or this facility if your symptoms do not start to improve after one week.Physical therapy or further testing may be needed. [NOTE: If X-rays were taken, they will be reviewed by a radiologist. You will be notified of any newfindings that may affect your care.] GET PROMPT MEDICAL ATTENTION if any of the following occur: ?? Pain becomes worse, not controlled by the prescribed medicine ?? Weakness or numbness in one or both legs ?? Numbness in the groin, genital area Loss of bowel or bladder control ?? [id number] [employer], [address] [place] [address]. All rights reserved. This information is not intended as a substitute for professional medical care. Always follow your healthcare professional's instructions. ED Tests and Procedures: Order Status Drug Abuse Survey Urine-Gilbert IDOAU Ordered XR Lumbar Spine 2 or 3 views Completed Urine Drug Screen Medical. Canceled Discharge Prescriptions & Home Medications: Medication/Strength Dose Route Frequency Indications/Special Instructions/Comments cell Misc Prescription (Work Excuse) See Instructions No work 02/25 though 02/28/2012 oxycodone-acetaminophen (Percocet 5/325 oral tablet) 2 tab(s) Oral every 6 hours as needed for Pain No more than 4,000mg acetaminophen/24hrs diazepam (diazepam 5 mg oral tablet) 5 mg Oral three times a day for 3 Days diazepam (diazepam 5 mg oral tablet) 5 mg Oral four times a day for 3 Days ibuprofen (ibuprofen 200 mg oral tablet) 800 mg [...] at bedtime Oral as directed levonorgestrel (Mirena) Comment: Attention: If you have any medications at home not on this list, DO NOT take them until you contact your provider for clarification. Medication Reconciliation: Reconciliation is a process of identifying the most accurate list of all medications a patient is taking - including name, dosage, frequency, and route - and using this list to provide to the patient information about how to take those medications. DAX EDWARDS or oneidaee has reviewed the home medications you have listed with us. Review the following instructions: You have NOT received any prescriptions and you have told us you are not currently taking any home medications You have NOT received any prescriptions. You have been provided a discharge medications list and you may CONTINUE taking your medications as previously prescribed by your regular providers. You have received the listed prescriptions and BEGIN all listed prescriptions as directed. Since you have listed no home medications, please check with your family doctor if you are taking any other medications. You have received the listed prescriptions and BEGIN all listed prescriptions as directed. Youhave been provided a discharge medications list and you may CONTINUE all home medications as previously prescribed by your regular providers. You have received the listed prescriptions and BEGIN all listed prescriptions as directed. Youhave been provided a discharge medications list. The following CHANGES have been made to your medication list; Otherwise, CONTINUE all home medications as previously prescribed by your regular provider. IMPORTANT: We examined and treated you today on an emergency basis only. This was not a substitute for, or an effort to provide, complete medical care. In most cases, you must let your doctor check youagain. Tell your doctor about any new or lasting problems. We cannot recognize and treat all injuries or illnesses in one Emergency Department visit. If you had special tests, such as EKG's or X- rays, we will review them again within 24 hours. We will call you if there are any new suggestions. Please follow the instructions above carefully. If you are being transferred to another facility your followup plan of care will be determined by the receiving facility. If you are a patient that is being discharged from the Emergency Department after receiving narcotics or other medications that may impair your judgment you may be a risk to yourself or others if you operate a motor vehicle. We recommend that you arrange a ride home with a responsible green party. IELIZABETH KAYLA JILL , or responsible green party have received this information and my questions have been answered. I have discussed any challenges I see with this plan with the nurse or physician. Patient Signature or Responsible Constitution Party/Relationship Date Time Provider Signature Date Time Medication Reconciliation: Reconciliation is a process of identifying the most accurate list of all medications a patient is taking - including name, dosage, frequency, and route - and using this list to provide to the patient information about how to take those medications. DAX EDWARDS or trisha has reviewed the home medications you have listed with us. Review the following instructions: You have NOT received any prescriptions and you have told us you are not currently taking any home medications You have NOT received any prescriptions. You have been provided a discharge medications list and you may CONTINUE taking your medications as previously prescribed by your regular providers. You have received the listed prescriptions and BEGIN all listed prescriptions as directed. Since you have listed no home medications, please check with your family doctor if you are taking any other medications. You have received the listed prescriptions and BEGIN all listed prescriptions as directed. Youhave been provided a discharge medications list and you may CONTINUE all home medications as previously prescribed by your regular providers. You have received the listed prescriptions and BEGIN all listed prescriptions as directed. Youhave been provided a discharge medications list. The following CHANGES have been made to your medication list; Otherwise, CONTINUE all home medications as previously prescribed by your regular provider. IMPORTANT: We examined and treated you today on an emergency basis only. This was not a substitute for, or an effort to provide, complete medical care. In most cases, you must let your doctor check youagain. Tell your doctor about any new or lasting problems. We cannot recognize and treat all injuries or illnesses in one Emergency Department visit. If you had special tests, such as EKG's or X- rays, we will review them again within 24 hours. We will call you if there are any new suggestions. Please follow the instructions above carefully. If you are being transferred to another facility your followup plan of care will be determined by the receiving facility. If you are a patient that is being discharged from the Emergency Department after receiving narcotics or other medications that may impair your judgment you may be a risk to yourself or others if you operate a motor vehicle. We recommend that you arrange a ride home with a responsible green party. I, DAX EDWARDS , or responsible green party have received this information and my questions have been answered. I have discussed any challenges I see with this plan with the nurse or physician. Patient Signature or Responsible Constitution Party/Relationship Date Time Provider Signature Date Time This document has images extracted. Please consider using [employer] for all your patient education needs. Source: [facility] UplogixCHART Document Id: [id number] [employer] Ascencion Silvestre R.N. - 02/26/2012 11:21 AM CST ED Depart Summary [facility] Emergency Department Clinical Discharge Summary PERSON INFORMATION Name DAX EDWARDS Age 36 Years 1975 12:00 AM Sex Female Language Eritrean PCP NORI HIRSCH NP Marital Status N [id number] Visit Id Visit Reason Fall; Fall; Back injury; Back injury; fell at work/pinched nerve Specialty Enc Type Emergency Med Service Emergency Medicine Referred by Track Group [facility] ED Discharge 02/26/2012 11:21 AM Tracking Id [id number] Checkout 02/26/2012 11:21 AM Checkin 02/26/2012 9:03 AM Acuity 3 -Urgent Dispo Type * Discharged to Home or Self Care Arrival 02/26/2012 9:03 AM Reg Status Complete LOS 000 02:18 Address: [address] [place] [phone] Comment: PROVIDER INFORMATION Provider Role Provider Contact Time ASCENCION SILVESTRE RADIO INTERFERENCE SUPERVISOR Nurse 02/26/12 09:30 DIAGNOSIS Lumbar strain 847.2 Comment: PATIENT EDUCATION INFORMATION Instructions: BACK SPRAIN/STRAIN; BACK EXERCISES, Lumbar; BACK PAIN w/ SCIATICA Follow up: With: Address: When: [facility] [place] [facility], [id number] Business (1) 03/04/2012 11:00:00 Comments: Physical Therapy is Scheduled with Martha PT: Please fill out Patient History & Information, and required forms with signatures needed With: Address: When: NORI HIRSCH [address] [place] [phone] [place] (1) 02/27/2012 10:30:00 Comments: Follow Up Fall/back pain- Work Status Source: [employer] Document Id: [id number] [employer] documented in this encounter Nursing Notes Ascencion Silvestre R.N. - 02/26/2012 11:20 AM CST ED Pain Assessment ED Pain Assessment Entered On: 02/26/2012 11:20 [employer] Performed On: 02/26/2012 11:20 [employer] by ASCENCION SILVESTRE RN Pain Assessment Pain Symptoms : Yes ASCENCION SILVESTRE RN - 02/26/2012 11:20 [employer] Pain Pain Assessment Grid Pain 1 Location : Lower back Intensity : 7 ASCENCION SILVESTRE RN - 02/26/2012 11:20 [employer] [facility]: [facility] Document Id: [id number] [employer] Ascencion Silvestre R.N. - 02/26/2012 9:45 AM CST Workers Compensation Patient is accompanied by her boss at [employer]. Nirali Hawkins was present during the exam and patient did not wish to have Nirali step out during her assessment/ subjective nor objective assessment. Electronically Signed By: ASCENCION SILVESTRE RN On: 02/26/2012 10:16 AM Source: [facility] POWERCHART Document Id: [id number] [employer] Ascencion Silvestre R.N. - 02/26/2012 9:24 AM CST ED Primary Assessment ED Primary Assessment Entered On: 02/26/2012 9:27 [employer] Performed On: 02/26/2012 9:24 [employer] by ASCENCION SILVESTRE RN Reason For Visit Problems(Active) Agoraphobia with Panic Disorder Name of Problem: Agoraphobia with Panic Disorder ; Recorder: EDY JUSTICE LPN; Confirmation: Confirmed ; Classification: Nursing ; Code: 1231 ; Contributor System: Smart Checkout ; Last Updated: 10/03/2010 8:15 CDT ; Life Cycle Date: 04/12/2010 ; Life Cycle Status: Active ; Responsible Provider: EDY JUSTICE LPN; Vocabulary: ICD-9-CM ; Comments: 10/03/2010 8:15 LILIANE CORNELL LPN noknown date of onset Asthma, Unspecified Name of Problem: Asthma, Unspecified ; Recorder: EDY JUSTICE LPN; Confirmation: Confirmed ; Classification: Nursing ; Code: 1231 ; Contributor System: Smart Checkout ; Last Updated: 04/12/2010 13:48 [employer] ; Life Cycle Date: 04/12/2010 ; Life Cycle Status: Active ; Responsible Provider: EDY JUSTICE LPN; Vocabulary: ICD-9-CM ; Comments: 10/03/2010 8:15 - LILIANE PEDERSON LPN no known date of onset Dysthymic Disorder Name of Problem: Dysthymic Disorder ; Onset Date: 1995 ; Recorder: NORI HIRSCH NP; Confirmation: Confirmed ; Classification: Medical ; Code: 1231 ; Contributor System: [email or web address] ; Last Updated: 10/03/2010 9:00 CDT ; Life Cycle Date: 10/03/2010 ; Life Cycle Status: Active ; Responsible Provider: NORI HIRSCH NP; Vocabulary: ICD-9-CM Low back pain* Name of Problem: Low back pain* ; Onset Date: 2009 ; Recorder: NORI HIRSCH NP; Confirmation: Confirmed ; Classification: Medical ; Code: 1231 ; Contributor System: [email or web address] ; Last Updated: 08/18/2011 9:00 CDT ; Life Cycle Date: 08/18/2011 ; Life Cycle Status: Active ; Responsible Provider: NORI HIRSCH NP; Vocabulary: ICD-9-CM Post-traumatic stress disorder (PTSD) Name of Problem: Post-traumatic stress disorder (PTSD) ; OnsetDate: 1994 ; Recorder: EDY JUSTICE LPN; Confirmation: Confirmed ; Classification: Nursing ; Code: 1231 ; Contributor System: PowerChart ; Last Updated: 10/03/2010 8:15 CDT ; Life Cycle Date: 04/12 ; Life Cycle Status: Active ; Responsible Provider: EDY UJSTICE LPN; Vocabulary: ICD-9-CM Restless legs syndrome Name of Problem: Restless legs syndrome ; Onset Date: 1999 ; Recorder: NORI HIRSCH NP; Confirmation: Confirmed ; Classification: Medical ; Code: 1231 ; Contributor System: PowerChart ; Last Updated: 11/03/2011 13:18 CDT ; Life Cycle Date: 02/10/2011 ; Life Cycle Status: Active ; Responsible Provider: NORI HIRSCH NP; Vocabulary: ICD-9-CM Diagnoses(Active) Back injury Date: 02/26/2012 ; Diagnosis Type: Reason For Visit ; Confirmation: Complaint of ; Clinical Dx: Back injury ; Classification: Medical ; Clinical Service: Emergency medicine ; Code: SNOMED CT ; Probability: 0 ; Diagnosis Code: [id number] Fall Date: 02/26/2012 ; Diagnosis Type: Reason For Visit ; Confirmation: Complaint of ; Clinical Dx:Fall ; Classification: Medical ; Clinical Service: Emergency medicine ; Code: SNOMED CT ; Probability: 0 ; Diagnosis Code: [id number] Triage Chief Complaint Description : Injury occured Sunday02/23/12 at 0755- patient has been resting this weekend at home but pain in lower back has since worsened, patient also stated that she noted numbnessin left lower extremity. Patient is limited on ambulation due to pain. Information Given By : Patient Accompanied By : Son, Other: Steven- Shruthi Mode of Arrival ED : Private vehicle Track : Medical Languages : Eritrean Patient Informed of Triage Location : Emergency department GCS Assessed : Yes Treatments Prior to Arrival : Other: Ibuprofen at 0730 800 mg ASCENCION SILVESTRE RN - 02/26/2012 9:24 [employer] ARCHITECT Ernestina Coma Eye Opening Response Ernestina : Spontaneously Best Verbal Response Ernestina : Oriented Best Motor Response [place] : Obeys simple commands Ernestina Coma Score : 15 ASCENCION SILVESTRE RN - 02/26/2012 9:24 [employer] [employer] [facility] ARCHITECT Pain Assessment Pain Symptoms : Yes ASCENCION SILVESTRE RN - 02/26/2012 9:24 [employer] [place] ARCHIT[employer] Pain Pain Assessment Grid Pain 1 Location : Lower back ASCENCION SILVESTRE RN - 02/26/2012 9:24 [facility] [place] ARCHITECT ED Physician Notification Time ED Physician Notification Time : 02/26/2012 9:23 [facility] [place] ARCHITECT ASCENCION SILVESTRE RN - 02/26/2012 9:24 [facility] [place] ARCHITECT EDGARD EDGARD Level 1 : No EDGARD Level 2 : No EDGARD Level 3 : Many Vital Signs EDGARD : Danger zone (HR > 100, RR > 20, SaO2 < 92%) ASCENCION SILVESTRE RN - 02/26/2012 9:24 [facility] [place] ARCHITECT DCP GENERIC CODE Tracking Acuity : 3 -Urgent Tracking Group : [facility] ASCENCION SILVESTRE RN - 02/26/2012 9:24 [facility] ARCHIT[employer] Allergy Allergies (Active) codeine Estimated Onset Date: Unspecified ; Reactions: confusion ; Created By: NORI HIRSCH NP;Reaction Status: Active ; Category: Drug ; Substance: codeine ; Type: Allergy ; Updated By: NORI HIRSCH NP; Reviewed Date: 02/26/2012 9:26 [facility] ARCHIT[facility] Immunizations Immunizations Current : Yes Last Tetanus : > 5 years Pneumovac : None Influenza : This year ASCENCION SILVESTRE RN - 02/26/2012 9:24 [employer] [place] ARCHITECT Respiratory Airway : Patent Respirations : Unlabored Respiratory Pattern : Regular Oxygen Therapy : Room air ASCENCION SILVESTRE RN - 02/26/2012 9:24 [employer] [place] ARCHITECT Cardiovascular Heart Rhythm : Regular Skin Color : Normal for ethnicity Skin Description : Dry Skin Temperature : Warm ASCENCION SILVESTRE RN - 02/26/2012 9:24 [employer] [place] ARCHITECT Neurological Last Well Time Known : Not applicable Level of Consciousness : Alert Orientation : Oriented x 3 Characteristics of Speech : Appropriate for age Neuro Patient Stated Symptoms : None Gait : Unsteady Swallowing Difficulty/Aspiration Risk : None Loss of Consciousness : No SACENCION SILVESTRE RN - 02/26/2012 9:24 [facility] [place] ARCHITECT ED Psychosocial Affect/Behavior : Calm, Cooperative, Appropriate Domestic Abuse Concerns : None Emotional Support Available : Yes ASCENCION SILVESTRE RN - 02/26/2012 9:24 [employer] [place] ARCHITECT Gastrointestinal Nutrition ED : Adequate ASCENCION SILVESTRE RN - 02/26/2012 9:24 [employer] [place] ARCHITECT /OB Assessment Patient Stated Symptoms : None ASCENCION SILVESTRE RN - 02/26/2012 9:24 [employer] [place] ARCHITECT Integumentary Integumentary Patient Stated Symptoms : None Skin Turgor : Elastic Mucous Membrane Color : Hiram Mucous Membrane Description : Moist Skin Color : Normal for ethnicity Skin Description : Dry Skin Temperature : Warm ASCENCION SILVESTRE RN - 02/26/2012 9:24 [employer] [employer] [place] ARCHITECT Musculoskeletal Fall Prevention Education Provided : ASCENCION NANCE RN - 02/26/2012 9:24 [employer] [place] ARCHITECT Social Habits Tobacco Use/Currently Using : No Tobacco Use/Last 12 months : No Smoking Status : Never smoker ASCENCION SILVESTRE RN - 02/26/2012 9:24 [employer] [facility] [place] ARCHITECT Tobacco Use Grid Last Use : never ASCENCION SILVESTRE RN - 02/26/2012 9:24 [facility] [facility] [place] ARCHITECT Alcohol Use Grid Alcohol Use : No ASCENCION SILVESTRE RN - 02/26/2012 9:24 [employer] [facility] [place] ARCHITECT Recreational Drug Use Grid Drug Use : None ASCENCION SILVESTRE RN - 02/26/2012 9:24 [employer] [place] ARCHITECT Source: [facility] POWERCHART Document Id: [id number] [facility] [place] ARCHITECT documented in this encounter ED Notes Ascencion Silvestre R.N. - 02/26/2012 10:46 AM CST ED Disposition Summary ED Disposition Summary Entered On: 02/26/2012 10:47 [facility] ARCH[employer] Performed On: 02/26/2012 10:46 [employer] [place] ARCHITECT by ASCENCION SILVESTRE RN ED Disposition Summary Accompanied By : Son, Other: Sourav Ross Mode of Discharge : Wheelchair Transportation : Private vehicle Discharge From ED With : Home Med List Printed Discharge Instructions Given to Patient : Yes Patient Status at Discharge from ED : Improved ASCENCION SILVESTRE RN - 02/26/2012 10:46 [employer] [place] ARCHITECT [facility] POWERCHART Document Id: [id number] [facility] [place] ARCHITECT Ascencion Silvestre R.N. - 02/26/2012 10:43 AM CST ED Nurse Reassess ED Nurse Reassess Entered On: 02/26/2012 10:46 [employer] [facility] ARCHITECT Performed On: 02/26/2012 10:43 [employer] [place] ARCHITECT by ASCENCION SILVESTRE RN Pain Assessment Pain Symptoms : Yes ASCENCION SILVESTRE RN - 02/26/2012 10:43 [employer] [place] ARCHITECT Pain Pain Assessment Grid Pain 1 Location : Lower back Laterality : Bilateral Intensity : 8 Time Pattern : Constant Onset : Gradual Duration : 02/23/12 Quality : Burning, Sharp Pain Radiation : Yes (Comment: left lower extremity [ASCENCION SILVESTRE RN - 02/26/2012 10:43 [employer] [facility] ARCHITECT] ) Aggravating Factors : Movement Alleviating Factors : Repositioning Associated Symptoms : Nausea Interventions : Medications ASCENCION SILVESTRE RN - 02/26/2012 10:43 [employer] [place] ARCHITECT Resp Reassess Respiratory Patient Stated Symptoms : None Distress : None Airway : Patent Respiratory Pattern : Regular Respirations : Unlabored Cough : None ASCENCION SILVESTRE RN - 02/26/2012 10:43 [employer] [place] ARCHITECT CV Reassess CV Patient Stated Symptoms : None Skin Color : Normal for ethnicity Skin Description : Dry Skin Temperature : Warm Nail Bed Color : Hiram Capillary Refill : Less than 2 seconds Heart Rhythm : Regular ASCENCION SILVESTRE RN - 02/26/2012 10:43 [employer] [place] ARCHITECT Neuro Reassess Last Well Time Known : Not applicable Orientation : Oriented x 3 Characteristics of Speech : Appropriate for age Level of Consciousness : Alert Neuro Patient Stated Symptoms : None Gait : Other: Unsteady/ limping due to back pain ASCENCION SILVESTRE RN - 02/26/2012 10:43 [employer] [place] ARCHITECT Ernestina Coma Eye Opening Response Ernestina : Spontaneously Best Verbal Response [place] : Oriented Best Motor Response Ernestina : Obeys simple commands Ernestina Coma Score : 15 ASCENCION SILVESTRE Russell RN - 02/26/2012 10:43 [employer] [place] ARCHITECT Behavioral Health Screen/Safety Reassmt Affect/Behavior : Calm, Cooperative, Appropriate ASCENCION SILVESTRE RN - 02/26/2012 10:43 [employer] [facility] [place] ARCHITECT GI Reassess GI Patient Stated Symptoms : None ASCENCION SILVESTRE RN - 02/26/2012 10:43 [employer] [facility] [place] ARCHITECT /OB Reassess Patient Stated Symptoms : None ASCENCION SILVESTRE RN - 02/26/2012 10:43 [facility] [place] ARCHITECT Integumentary Integumentary Patient Stated Symptoms : None ASCENCION SILVESTRE RN - 02/26/2012 10:43 [employer] [place] ARCHITECT Source: [facility] [employer] Document Id: [id number] [employer] [facility] [place] ARCHITECT Reyes Bray M.D. - 02/26/2012 9:58 AM CST Fall *ED Patient: DAX EDWARDS Age: 36 years Sex: Female : 1975 Author: REYES BRAY MD Attachments: None Associated Diagnosis: Lumbar strain 847.2 Basic Information Time seen: Date 02/26/2012, Immediately upon arrival. History source: Patient, significant other, family. Arrival mode: Private vehicle, walking. History limitation: None. Additional information: Patient's physician(s): FELL WHILE exitting privite vehicle on work property, leg slipped on ice and patient well flat onto back 02/23/12. Next day experienced radiculat pain into Left lower leg., Chief Complaint from Nursing Triage Note : Chief Complaint Description. 02/26/2012 9:24 [employer] [facility] [facility] ARCHITECT Chief Complaint Description Injury occured Sunday02/23/12 at 0755- patient has been resting this weekend at home but pain in lower back has since worsened, patient also stated that she noted numbness in left lower extremity. Patient is limited on ambulation due to pain. 02/26/2012 9:16 [employer] [facility] [facility] ARCHITECT Chief Complaint Description 36 year old female presents to the ED after falling in the parking lot of her work ([employer]) which occured when she slipped on ice. Patient has a history of bulging discs in he back and since injury has occured she has had worsened lower back pain/leg numb History of Present Illness The patient presents following fall. The onset was 4 days ago. The occurrence was single episode. The fall was described as slipped, lost balance, fell from ground level. The location where the incident occurred was at work. Location: Left anterior lateral lower extremity. The character of symptoms ispain, tingling, numbness andalong L-3 dermatome : lateral along left thigh and anterior into upper ann- numb sensation and periodic weakness. The degree at present is 7 /10. There are exacerbating factors including changing position, movement and standing. The relieving factor is rest. Risk factors consist of marked obesity. Therapy today: none. Preceding symptoms none. Associated symptoms: denies chest pain, denies dizziness, denies syncope, denies headache and denies shortness of breath. Review of Systems Constitutional symptoms: No fever, no chills, no sweats or no weakness. Skin symptoms: No jaundice, no rash or no pruritus. Eye symptoms: No recent vision problems. ENMT symptoms: No ear pain or no sore throat. Respiratory symptoms: No hemoptysis or no stridor. Cardiovascular symptoms: No chest pain, no palpitations, no tachycardia or no diaphoresis. Gastrointestinal symptoms: No abdominal pain, no nausea, no vomiting or no diarrhea. Genitourinary symptoms: No dysuria. Musculoskeletal symptoms: Back pain and history of flares of chronic lower back pain. MRI done last year show disc disease. Neurologic symptoms: No altered level of consciousness or no tingling. Endocrine symptoms: No polyuria or no polyphagia. Hematologic/Lymphatic symptoms: Bleeding tendency negative or no swollen nodes. Allergy/immunologic symptoms: No impaired immunity. Additional review of systems information: All other systems reviewed and otherwise negative. Health Status Allergies: . Allergic Reactions (Selected) Severity Not Documented Codeine- Confusion. Medications: (Selected). Prescriptions Ordered Requip 0.25 mg oral tablet: 0.25 mg, 1 tab(s), PO, Bedtime, tab(s), 90 day(s) albuterol 90 mcg/inh inhalation aerosol: 2 puff(s), Inhalation, 4xDay, 2 units, PRN: Shortness of breath / Wheezing diclofenac sodium 100 mg oral tablet, extended release: 100 mg, 1 tab(s), PO, Daily, 90 tab(s) venlafaxine 75 mg oral tablet: 2 tablets in the morning and 3 tablets at bedtime, PO, As Directed, 450 each Documented Medications Ordered Mirena: ibuprofen 200 mg oral tablet: 800 mg, 4 tab(s), PO, q6hr Immunizations: Include Immunizations. Previous tetanus toxoid: Ad hoc dose () 04/11/2006 [facility] ARCHITECT. influenza virus vaccine: Ad hoc dose () 01/26/2009 [employer] [facility] ARCHITECT, Ad hoc dose () 12/20/2010 [facility] ARCHITECT. Future No future immunizations have been selected or recorded. history: not currently . Past Medical/ Family/ Social History Medical history: . No active or resolved past medical history items have been selected or recorded. Surgical history: . Tubal ligation ([id number]) in 2000 at 24 Years. Cholecystectomy; (07853) in 1997 at 22 Years. Comments: 04/12/2010 13:56 - EDY JUSTICE LPN sinus surgery FESS - Functional endoscopic sinus surgery ([id number]) in 1990 at 15 Years. Family history: . Stroke Grandmother Social history: Negative. Problem list: . All Problems Asthma, Unspecified / 493.90 / Confirmed Agoraphobia with Panic Disorder / 300.21 / Confirmed Post-traumatic stress disorder (PTSD) / 309.81 / Confirmed Dysthymic Disorder / 300.4 / Confirmed Restless legs syndrome / 333.94 / Confirmed Low back pain* / 724.2 / Confirmed Canceled: Depression / 311 Canceled: Sore Throat Acute / 462 Physical Examination Vital Signs Vital Signs. 02/26/2012 9:16 [facility] ARCHITECT Temperature Core 36.6 C Apical Heart Rate 117 /min HI Respiratory Rate 20 /min SpO2 99 % Systolic Blood Pressure 163 mmHg >HHI Diastolic Blood Pressure 110 mmHg >HHI Mean Arterial Pressure 128 mmHg BP Location Left upper Measurements. 02/26/2012 9:16 [facility] ARCHITECT Height 160 cm Height Source Stated Dosing Weight 124.2 kg Actual Weight 124.2 kg Weight Source Standing scale Body Mass Index 48.52 kg/m2 SpO2. 02/26/2012 9:16 [facility] ARCHITECT SpO2 99 % General: Alert, mild distress and anxious. Skin: Warm, dry, intact and no pallor. Head: Normocephalic and atraumatic. Neck: Trachea midline and no tenderness. Eye: Pupils are equal, round and reactive to light, extraocular movements are intact and vision grossly normal. Ears, nose, mouth and throat: Oral mucosa moist and no pharyngeal erythema or exudate. Cardiovascular: Regular rate and rhythm, No murmur and Normal peripheral perfusion. Respiratory: Respirations are non-labored, breath sounds are equal and Symmetrical chest wall expansion. Chest wall: No tenderness and No deformity. Back: Nontender. Musculoskeletal: No swelling. no deformity. Gastrointestinal: Soft, Nontender, Normal bowel sounds and No organomegaly. Genitourinary Neurological: Alert and oriented to person, place, time, and situation, CN II- XII intact, normal speech observed and + SLR on Left and brisk 3/4 DTRn RT patellar, 0/4 DTR on Left. Lymphatics: No lymphadenopathy. Psychiatric: Cooperative, appropriate mood & affect, normal judgment and non-suicidal. . Medical Decision Making Differential Diagnosis:Fall, contusion, sprain, closed fracture, spinal cord injury, lumbar disc disease. Documents reviewed:Prior records. OrdersLaunch Orders, Radiology: XR Lumbar Spine 2 or 3 views (Order Processing): 02/26/2012 10:00 [employer] [facility] ARCHITECT, FALL, Stat, Patient Bed, Once, WORK COMP, [facility] EDLaunch Orders. Pharmacy: Toradol (Order Processing): 60 mg, IM, Once Results review:All Results : Results. 02/26/2012 10:27 [facility] ARCHITECT XR Lumbar Spine 2 or 3 views Report 02/26/2012 9:45 [employer] [facility] [facility] ARCHITECT Progress Note-Nurse 02/26/2012 9:24 [facility] ARCHITECT ED Nursing Note 02/26/2012 9:16 [facility] ARCHITECT ED Triage Note - Text 02/26/2012 10:11 [facility] ARCHITECT ketorolac 60 mg mg 02/26/2012 9:24 [facility] ARCHITECT Pain Symptoms Yes Pain 1 Location Lower back Heart Rhythm Regular Respirations Unlabored Respiratory Pattern Regular Airway Patent Oxygen Therapy Room air Integumentary Patient Stated Symptoms None Skin Color Normal for ethnicity Skin Color Normal for ethnicity Skin Temperature Warm Skin Temperature Warm Skin Description Dry Skin Description Dry Skin Turgor Elastic Mucous Membrane Color Hiram Mucous Membrane Description Moist Neuro Patient Stated Symptoms None Gait Unsteady Swallowing Difficulty None Characteristics of Speech Appropriate for age Level of Consciousness Alert Loss of Consciousness No Last Well Time Known Not applicable Eye Opening Response Ernestina Spontaneously Best Motor Response [place] Obeys simple commands Best Verbal Response [place] Oriented Ernestina Coma Score 15 Affect/Behavior Calm, Cooperative, Appropriate Orientation Oriented x 3 Domestic Abuse Concerns None Emotional Support Available Yes Nutrition ED Adequate Patient Stated Symptoms None Tracking Acuity 3 -Urgent Tracking Group [facility] ED Tobacco Use/Currently Using No Tobacco Use/Last 12 months No Tobacco Use Grid Tobacco Use Grid Alcohol Use Grid Alcohol Use Grid Recreational Drug Use Grid Recreational Drug Use Grid Chief Complaint Description Injury occured Sunday02/23/12 at 0755- patient has been resting this weekend at home but pain in lower back has since worsened, patient also stated that she noted numbness in left lower extremity. Patient is limited on ambulation due to pain. Mode of Arrival ED Private vehicle Track Medical Accompanied by Son, Other: Alexandria Hawkins Information Given by Patient Immunizations Current Yes Last Tetanus > 5 years Pneumovac None Influenza This year Languages [place] Treatments Prior to Arrival Other: Ibuprofen at 0730 800 mg ED Physician Notification Time 02/26/2012 9:23 EDGARD Level 1 No EDGARD Level 2 No EDGARD Level 3 Many Vital Signs EDGARD Danger zone (HR > 100, RR > 20, SaO2 < 92%) GCS Assessed Yes 02/26/2012 9:16 [facility] ARCHITECT Height 160 cm Height Source Stated Dosing Weight 124.2 kg Actual Weight 124.2 kg Weight Source Standing scale Body Mass Index 48.52 kg/m2 Temperature Core 36.6 C Apical Heart Rate 117 /min HI Respiratory Rate 20 /min SpO2 99 % Systolic Blood Pressure 163 mmHg >HHI Diastolic Blood Pressure 110 mmHg >HHI Mean Arterial Pressure 128 mmHg BP Location Left upper Pain Symptoms Yes Pain 1 Location Lower back Pain 1 Laterality Bilateral Pain 1 Intensity 6 Pain 1 Time Pattern Constant Pain 1 Onset Gradual Pain 1 Duration Injury Occured 02/23/12 Pain 1 Quality Burning, Sharp Pain 1 Radiation Yes Pain 1 Aggravating Factors Movement, Other: Ambulation Pain 1 Alleviating Factors Repositioning Pain 1 Associated Symptoms None Pain 1 Interventions MD notified Pain 2 Associated Symptoms Nausea Oxygen Therapy Room air Eye Opening Response Ernestina Spontaneously Best Motor Response [place] Obeys simple commands Best Verbal Response [place] Oriented [place] Coma Score 15 Tracking Acuity 3 -Urgent Tracking Group [facility] ED Chief Complaint Description 36 year old female presents to the ED after falling in the parking lot of her work ([employer]) which occured when she slipped on ice. Patient has a history of bulging discs inhe back and since injury has occured she has had worsened lower back pain/leg numb Mode of Arrival ED Private vehicle Track Medical Accompanied by Other: Alexandria Hawkins Information Given by Patient Immunizations Current Yes Last Tetanus Unknown Pneumovac None Influenza This year Languages [place] Treatments Prior to Arrival Other: Ibuprofen at 0730- 800 mg ED Physician Notification Time 02/26/2012 9:23 EDGARD Level 1 No EDGARD Level 2 No EDGARD Level 3 Many Vital Signs EDGARD Danger zone (HR > 100, RR > 20, SaO2 < 92%) Vital Signs Assessed Yes GCS Assessed Yes ED Triage Assessment Adult ([facility]) Form ED Triage Assessment Adult ([facility]) Form Radiology results:Reviewed radiologist's report, reveals no acute disease process, reveals no changefrom previous. Reexamination/ Reevaluation Vital signs results included from flowsheet : Vital Signs 02/26/2012 9:16 [facility] ARCHITECT Temperature Core 36.6 C Apical Heart Rate 117 /min HI Respiratory Rate 20 /min SpO2 99 % Systolic Blood Pressure 163 mmHg >HHI Diastolic Blood Pressure 110 mmHg >HHI Mean Arterial Pressure 128 mmHg BP Location Left upper Course: improving, not well controlled. Pain status: decreased. Assessment: exam improved. Interventions: PowerOrders. Pharmacy: diazepam (Order Processing): 5 mg, PO, Once Impression and Plan Diagnosis Lumbar strain 847.2 (Discharge, Emergency medicine, Medical) Diagnosis sciatica Plan Condition: Improved. Disposition: Discharged: to home. [id number] was given the following educational materials: BACK SPRAIN/STRAIN, BACK EXERCISES, Lumbar, BACK PAIN w/ SCIATICA. Limitations: No work, For 3 days. Follow up with: Primary Care Physician, In: 3 day(s), as needed. Counseled: Patient, Friend, Regarding diagnosis, Regarding diagnostic results, Regarding treatment plan, Regarding prescription. Electronically Signed By: REYES BRAY MD On: 02/28/2012 01:03 AM This document has images extracted. Source: [facility] POWERCHART Document Id: [id number]} Ascencion Scott R.N. - 02/26/2012 9:16 AM CST ED Triage Assessment ED Triage Assessment Entered On: 02/26/2012 9:24 [facility] ARCHITECT Performed On: 02/26/2012 9:16 [facility] [place] ARCHITECT by ASCENCION SILVESTRE RN Reason For Visit Problems(Active) Agoraphobia with Panic Disorder Name of Problem: Agoraphobia with Panic Disorder ; Recorder: EDY JUSTICE LPN; Confirmation: Confirmed ; Classification: Nursing ; Code: 1231 ; Contributor System: PowerChart ; Last Updated: 10/03/2010 8:15 CDT ; Life Cycle Date: 04/12/2010 ; Life Cycle Status: Active ; Responsible Provider: EDY JUSTICE LPN; Vocabulary: ICD-9-CM ; Comments: 10/03/2010 8:15 -LILIANE PEDERSON LPN noknown date of onset Asthma, Unspecified Name of Problem: Asthma, Unspecified ; Recorder: EDY JUSTICE LPN; Confirmation: Confirmed ; Classification: Nursing ; Code: 1231 ; Contributor System: PowerChart ; Last Updated: 04/12/2010 13:48 [facility] ARCHITECT ; Life Cycle Date: 04/12/2010 ; Life Cycle Status: Active ; Responsible Provider: EDY JUSTICE LPN; Vocabulary: ICD-9-CM ; Comments: 10/03/2010 8:15 - LILIANE PEDERSON LPN no known date of onset Dysthymic Disorder Name of Problem: Dysthymic Disorder ; Onset Date: 1995 ; Recorder: NORI HIRSCH NP; Confirmation: Confirmed ; Classification: Medical ; Code: 1231 ; Contributor System: PowerChart ; Last Updated: 10/03/2010 9:00 CDT ; Life Cycle Date: 10/03/2010 ; Life Cycle Status: Active ; Responsible Provider: NORI HIRSCH NP; Vocabulary: ICD-9-CM Low back pain* Name of Problem: Low back pain* ; Onset Date: 2009 ; Recorder: NORI HIRSCH NP; Confirmation: Confirmed ; Classification: Medical ; Code: 1231 ; Contributor System: PowerChart ; Last Updated: 08/18/2011 9:00 CDT ; Life Cycle Date: 08/18/2011 ; Life Cycle Status: Active ; Responsible Provider: NORI HIRSCH NP; Vocabulary: ICD-9-CM Post-traumatic stress disorder (PTSD) Name of Problem: Post-traumatic stress disorder (PTSD) ; OnsetDate: 1994 ; Recorder: EDY JUSTICE LPN; Confirmation: Confirmed ; Classification: Nursing ; Code: 1231 ; Contributor System: Smart Checkout ; Last Updated: 10/03/2010 8:15 CDT ; Life Cycle Date: 04/12 ; Life Cycle Status: Active ; Responsible Provider: EDY JUSTICE LPN; Vocabulary: ICD-9-CM Restless legs syndrome Name of Problem: Restless legs syndrome ; Onset Date: 1999 ; Recorder: NORI HIRSCH NP; Confirmation: Confirmed ; Classification: Medical ; Code: 1231 ; Contributor System: [email or web address] ; Last Updated: 11/03/2011 13:18 CDT ; Life Cycle Date: 02/10/2011 ; Life Cycle Status: Active ; Responsible Provider: NORI HIRSCH NP; Vocabulary: ICD-9-CM Diagnoses(Active) Back injury Date: 02/26/2012 ; Diagnosis Type: Reason For Visit ; Confirmation: Complaint of ; Clinical Dx: Back injury ; Classification: Medical ; Clinical Service: Emergency medicine ; Code: SNOMED CT ; Probability: 0 ; Diagnosis Code: [id number] Fall Date: 02/26/2012 ; Diagnosis Type: Reason For Visit ; Confirmation: Complaint of ; Clinical Dx:Fall ; Classification: Medical ; Clinical Service: Emergency medicine ; Code: SNOMED CT ; Probability: 0 ; Diagnosis Code: [id number] Triage Chief Complaint Description : 36 year old female presents to the ED after falling [place] the [place]of her work ([employer] which occured when she slipped on ice. Patient has a history of bulging discs in he back and since injury has occured she has had worsened lower back pain/leg numb Information Given By : Patient Accompanied By : Other: Alexandria Hawkins Mode of Arrival ED : Private vehicle Track : Medical Languages : Eritrean Patient Informed of Triage Location : Emergency department Vital Signs Assessed : Yes GCS Assessed : Yes Treatments Prior to Arrival : Other: Ibuprofen at 0730- 800 mg ASCENCION SILVESTRE RN - 02/26/2012 9:16 [employer] ARCHITECT Vital Signs Temperature Core : 36.6C(Converted to: 97.9DegF) Apical Heart Rate : 117/min (HI) Respiratory Rate : 20/min Systolic Blood Pressure : 163mmHg (>HHI) Diastolic Blood Pressure : 110mmHg (>HHI) NIBP Mean : 128mmHg BP Location : Left upper extremity SpO2 : 99% Oxygen Therapy : Room air Height : 160cm(Converted to: 5ft 3inch(es)) Actual Weight : 124.2kg Actual Weight Conversion to Pounds : 273.240lb Weight Source : Standing scale Dosing Weight : 124.2kg Dosing Weight Conversion to Pounds : 273.240lb Height Source : Stated Body Mass Index : 48.52kg/m2 ASCENCION SILVESTRE RN - 02/26/2012 9:16 [employer]ACLE FUS[employer]LE[employer] ARCHITECT [place] Coma Eye Opening Response [place] : Spontaneously Best Verbal Response Ernestina : Oriented Best Motor Response [place] : Obeys simple commands Ernestina Coma Score : 15 ASCENCION SILVESTRE RN - 02/26/2012 9:16 [employer] F[employer] ARCHITECT Pain Assessment Pain Symptoms : Yes ASCENCION SILVESTRE RN - 02/26/2012 9:16 [employer] F[employer] ARCHITECT Pain Pain Assessment Grid Pain 1 Pain 2 Location : Lower back Laterality : Bilateral Intensity : 6 Time Pattern : Constant Onset : Gradual Duration : Injury Occured 02/23/12 Quality : Burning, Sharp Pain Radiation : Yes (Comment: down left leg [ASCENCION SILVESTRE RN - 02/26/2012 9:16 [employer] F[employer]DLE[employer] ARCHITECT] ) Aggravating Factors : Movement, Other: Ambulation Alleviating Factors : Repositioning Associated Symptoms : None Nausea Interventions : MD notified ASCENCION SILVESTRE RN - 02/26/2012 9:16 [employer] ARCHITECT ASCENCION SILVESTRE RN - 02/26/2012 9:16 [employer] F[employer] ARCHITECT ED Physician Notification Time ED Physician Notification Time : 02/26/2012 9:23 [employer] ARCHITECT ASCENCION SILVESTRE RN - 02/26/2012 9:16 [employer] F[employer] ARCHITECT EDGARD EDGARD Level 1 : No EDGARD Level 2 : No EDGARD Level 3 : Many Vital Signs EDGARD : Danger zone (HR > 100, RR > 20, SaO2 < 92%) ASCENCION SLIVESTRE RN - 02/26/2012 9:16 [employer] F[employer] ARCHITECT DCP GENERIC CODE Tracking Acuity : 3 -Urgent Tracking Group : [facility] ASCENCION SILVESTRE RN - 02/26/2012 9:16 [employer] F[employer] ARCHITECT Allergy Allergies (Active) codeine Estimated Onset Date: Unspecified ; Reactions: confusion ; Created By: NORI HIRSCH NP;Reaction Status: Active ; Category: Drug ; Substance: codeine ; Type: Allergy ; Updated By: NORI HIRSCH NP; Reviewed Date: 02/26/2012 9:23 [employer] F[employer] ARCHITECT Immunizations Immunizations Current : Yes Last Tetanus : Unknown Pneumovac : None Influenza : This year ASCENCION SILVESTRE RN - 02/26/2012 9:16 [employer] F[employer] ARCHITECT Source: [employer] Document Id: [id number] LE FUSION MIDDLEWARE ARCHITECT documented in this encounter Miscellaneous Notes Jarred - Ascencion Silvestre R.N. - 02/26/2012 11:19 AM CST Discharge Vital Signs Form Discharge Vital Signs Form Entered On: 02/26/2012 11:20 [employer] ARCHITECT Performed On: 02/26/2012 11:19 [employer] ARCHITECT by ASCENCION SILVESTRE RN Vital Signs Apical Heart Rate : 103/min (HI) Systolic Blood Pressure : 152mmHg (HI) Diastolic Blood Pressure : 105mmHg (>HHI) NIBP Mean : 121mmHg BP Location : Left upper extremity SpO2 : 96% Oxygen Saturation Monitoring Frequency : Continuous ASCENCION SILVESTRE RN - 02/26/2012 11:19 [employer] ARCHITECT [facility] Document Id: [id number] LE FUSION [employer]DLE[employer] ARCHITECT Miscellaneous - Ascencion Silvestre R.N. - 02/26/2012 11:01 AM CST Discharge Vital Signs Form Discharge Vital Signs Form Entered On: 02/26/2012 11:02 [employer] ARCHITECT Performed On: 02/26/2012 11:01 [employer] ARCHITECT by ASCENCION SILVESTRE RN Vital Signs Temperature Core : 36.2C(Converted to: 97.2DegF) (LOW) Apical Heart Rate : 101/min (HI) Respiratory Rate : 20/min Systolic Blood Pressure : 154mmHg (HI) Diastolic Blood Pressure : 106mmHg (>HHI) NIBP Mean : 122mmHg BP Location : Left upper extremity SpO2 : 97% Oxygen Therapy : Room air ASCENCION SILVESTRE RN - 02/26/2012 11:01 [employer] F[employer] ARCHITECT Source: [employer] Document Id: [id number] LE F[employer] ARCHITECT Jarred - Ascencion Silvestre R.N. - 02/26/2012 10:47 AM CST Valuables/Belongings Valuables/Belongings Entered On: 02/26/2012 10:47 [employer] ARCHITECT Performed On: 02/26/2012 10:47 [employer] ARCHITECT by ASCENCION SILVESTRE RN Valuables/Belongings Valuables/Belongings Grid Valuables with Patient Clothes, Patient Valuables : Jacket, Pants, Shirt, Shoes, Undergarments Monetary Items : Purse ASCENCION SILVESTRE RN - 02/26/2012 10:47 [employer] ARCHITECT Home Medication Disposition : None brought in with patient ASCENCION SILVESTRE RN - 02/26/2012 10:47 [employer] F[employer] ARCHITECT Source: [employer] Document Id: [id number] LE F[employer]ION [employer] ARCHITECT Jarred - Ascencion Silvestre RLawrence - 02/26/2012 9:03 AM CST Facility Charge Ticket Facility Charge Ticket Entered On: 02/26/2012 10:48 [employer] ARCHITECT Performed On: 02/26/2012 9:03 [employer] F[employer] ARCHITECT by ASCENCION SILVESTRE RN Facility Charge TVL Level for Facility Charge Ticket : Level 3 [place] Total Points with Diagnosis Control : 7 [facility] Visit Level : 86176 Level 3 [place] - 03/01/2012 12:48 [employer] F[employer] ARCHITECT Mode of Arrival ED : Private vehicle [facility] Mode of Arrival Interpreted : Standard [facility] Process Management : None [facility] Order Management : Lab tests, Xray - plain films 30 Minutes Critical Care : No [facility] Nursing Assessment : Triage and 1-2 nursing assessments [facility] Disposition : Discharge Treatments Prior to Arrival : Other: Ibuprofen at 0730 800 mg ASCENCION SILVESTRE RN - 02/26/2012 10:47 [employer] ARCHITECT Chief Complaint 8.50.02 Reason For Visit Category : Trauma ED Chief Complaint Trauma 8.5 : Back - lumbar spine injury - minor TVL Calc : 8 TVL for Facility Charge Ticket Dx : Level 3 ASCENCION SILVESTRE RN - 02/26/2012 10:47 [employer] F[employer] ARCHITECT Source: [facility] POWERCHART Document Id: [id number] Electronically signed by Conversion, [facility] [employer] [id number] at 07/05/2016 1:30 AM CDT documented in this encounter Plan of Treatment Not on filedocumented as of this encounter Procedures Procedure Name Priority Date/Time Associated Comments Diagnosis DRUG ABUSE SURVEY, U Routine 02/26/2012 11:13 Res ults for this AM [employer] ARCHITECT procedure are i n the results section. ADULTERANTS SURVEY, U Routine 02/26/2012 11:13 Re sults for this AM [employer] ARCHITECT procedure are i n the results section. documented in this encounter Results Adulterants Survey, Urine (02/26/2012 11:13 AM [employer] ARCHITECT) P athologist Signature HX U Adlt Sv 185.4 MGDL POWERCHART Creat-Gilbert Specific 1.025 POWERCHART [place], POCT, U HX U Adlt Sv 7.0 POWERCHART -Gilbert HX U Adlt Sv Negative POWERCHART Oxid-Gilbert Comment: Test Performed by: [address] [address] Node Js Developer: Tommy kimball III, M.D. Specimen Anatomical Collection Method Collection Time Receive d Time (Source) Location / / Volume Laterality Urine 02/26/2012 11:13 02/26/2012 8:13 AM [employer] F[employer] ARCHITECT PM [employer] ARCHITECT Historical Provider LAB URINE ORDERABLES Performing Organization Address City/State/ZIP Code Phon e Number POWERCHART Drug Abuse Survey, Urine (02/26/2012 11:13 AM [employer] ARCHITECT) Component Value Ref [facility] Method Time Signature Alcohol Negative Cutoff: POWERCHART 30 MGDL HXU AMES Amphe-White Negative Cutoff: POWERCHART 500 NGML Barbiturates Negative Cutoff: POWERCHART 200 NGML HX U AMES Benzo-White Negative Cutoff: POWERCHART 200 NGML Cocaine Negative Cutoff: POWERCHART 150 NGML HXU Opiates-White Negative Cutoff: POWERCHART 300 NGML HX U Phency-White Negative Cutoff: POWERCHART 25 NGML Tetrahydrocannabinol Negative Cutoff: POWERCHAR T 20 NGML Comment: The drugs listed above are detected by i mmunoassay. ??Call the lab to initiate confirmatory testing if needed. Specimens are retained in the laboratory for two weeks. This test is not intended for use in emp loyment-related testing. Test Performed by: [place] [address] Node Js Developer: Tommy kimball III, M.D. Specimen (Source) Anatomical Collection Method Collection Time Re ceived Time Location / / Volume Laterality Urine 02/26/2012 11:13 AM [employer] F[employer] ARCHITECT Nori Hirsch N.P. LAB URINE ORDERABLES Performing Organization Address City/State/ZIP Code Phon e Number POWERCHART documented in this encounter Visit Diagnoses Not on filedocumented in this encounter Additional Health Concerns Assessment Noted Time PHQ-9 Depression Total Score: 7 01/01/2012 2:55 PM [employer] F[employer] ARCHITECT documented as of this encounter
--- OUTSIDE RECORDS SUMMARY | 2021-12-12 09:59 | XMS_ITS | Encounter Summary ---
:1975 Author Organization [facility] Address [address] [place] [address] Care Team Providers Name Role Phone Unavailable Primary Care Provider Unavailable Encounter Details Date Type Department Care Team Description 08/16/2012 Hospital Encounter HX [facility] Wyatt Hirsch N.P. [address] [place] [address] (Wo rk) Social History Tobacco Use Types Packs/Day Years Used Date Smoking Tobacco: Never Assessed Sex Assigned at Date Recorded Not on file documented as of this encounter Progress Notes Conversion, Historical Provider Ser - 08/16/2012 4:45 PM CDT [id number] HEALTH & WELLNESS COACHING Referring Physician: Felix LewisN.Yves CHIEF COMPLAINT/REASON FOR VISIT Follow-up wellness coaching visit around weight loss and stress. SESSION REVIEW Patient was 100% successful in achieving her goal of completing her worksheet goal setting. She cameup with 2 areas in which she would like to work on. The first goal would be around the area of weight loss. The second goal is the area of anxiety and coping skills. Goal #1: For her area of weight loss of goal would be to move every day doing 20 wall push-ups 5 days a week. Goal #2: Would be to manage her anxiety by writing down any time she experiences anxiety, her trigger and her belief of around what is causing it. She will keep this notebook with her and continue to journal around that. She also reports that her anxiety level is much better this week. She did over the last few weeks stop taking her Effexor and then started taking again at her full dose which has been really helpful. She also feels better after meeting and having a path for her life. She feels like she has got a purpose and a way that she can move forward towards her goals. We discussed in detail her seeing Barb, our Psychologist on staff and she is making an appointment today to schedule in with for her initial consult with her. She also reports that she feels really comfortable meeting with me today as she was very nervous during her first session. She also reports a success of being down a total of 9 pounds inher weight loss goal. She is interested in making slow and steady progress rather than a quick fix that will not stay. She is also using little small goals to get there. She is celebrating each weight as she steps towards her goal and remembering different times that she was at that weight before and happy times during that period. FOLLOW-UP PLAN We will continue to see Mirella at a 2-week frequency and she will also start seeing our therapist on staff, Barb as well. Nirali Boothe Electronically Signed By: NIRALI MONTEJO On: 08/19/2012 09:47 AM Source: [facility] MHSDOLBEYNONRADSYS Document Id: [id number] documented in this encounter Plan of Treatment Not on filedocumented as of this encounter Visit Diagnoses Not on filedocumented in this encounter Additional Health Concerns Assessment Noted Time PHQ-9 Depression Total Score: 7 01/01/2012 2:55 PM COMPUTING ARCHITECT documented as of this encounter
--- OUTSIDE RECORDS SUMMARY | 2021-12-12 09:59 | XMS_ITS | Encounter Summary ---
:1975 Author Organization [facility] Address [address] [place] [address] Care Team Providers Name Role Phone Unavailable Primary Care Provider Unavailable Encounter Details Date Type Department Care Team Description 11/07/2011 Hospital Encounter HX NO MAPPING Vlad Browne M.D. [address], [place] [phone] (Wo rk) Social History Tobacco Use Types Packs/Day Years Used Date Smoking Tobacco: Never Assessed Sex Assigned at Date Recorded Not on file documented as of this encounter Plan of Treatment Not on filedocumented as of this encounter Visit Diagnoses Not on filedocumented in this encounter
--- OUTSIDE RECORDS SUMMARY | 2021-12-12 09:59 | XMS_ITS | Encounter Summary ---
:1975 Author Organization [facility] Address [address] [place] [address] Care Team Providers Name Role Phone Unavailable Primary Care Provider Unavailable Encounter Details Date Type Department Care Team Description 03/01/2012 Hospital Encounter HX [facility] Provider, Histori eda Social History Tobacco Use Types Packs/Day Years Used Date Smoking Tobacco: Never Assessed Sex Assigned at Date Recorded Not on file documented as of this encounter Plan of Treatment Not on filedocumented as of this encounter Visit Diagnoses Not on filedocumented in this encounter Additional Health Concerns Assessment Noted Time PHQ-9 Depression Total Score: 7 01/01/2012 2:55 PM LEASE BUYER documented as of this encounter
--- OUTSIDE RECORDS SUMMARY | 2021-12-12 09:59 | XMS_ITS | Encounter Summary ---
:1975 Author Organization [facility] Address [address] [place] [address] Care Team Providers Name Role Phone Unavailable Primary Care Provider Unavailable Encounter Details Date Type Department Care Team Description 12/05/2011 Hospital Encounter HX [facility] Provider, Historic al Social History Tobacco Use Types Packs/Day Years Used Date Smoking Tobacco: Never Assessed Sex Assigned at Date Recorded Not on file documented as of this encounter Miscellaneous Notes Miscellaneous - Conversion, Historical Provider Ser - 12/05/2011 4:45 PM CDT [id number] [facility] [address] [place], [place] [id number] 12/06/2011 Mirella Edwards [address] [facility] [id number] Dear Mirella: Thank you for allowing me to participate in your care. I have reviewed your recent test results and below are the results of your test. Your results are provided below for your review Your cholesterol results CHOL 295 12/05/2011 Desired total cholesterol is less than 200 Non fasting. Please share this results with your PCP to discuss any further testing. Thank you for choosing [facility]. If you have any further questions, problems, or toschedule an appointment, please call [facility] in [place] at . Sincerely, Ame Hurst MD [facility] [address] [place] [id number] Source[facility] Document Id: [id number] documented in this encounter Plan of Treatment Not on filedocumented as of this encounter Procedures Procedure Name Priority Date/Time Associated Diagnosis Comme nts CHOLESTEROL, TOTAL, Routine 12/06/2011 9:31 AM Re sults for this S CDT procedure are i n the results section. documented in this encounter Results Cholesterol, Total (12/06/2011 9:31 AM CDT) P athologist Signature Cholestanol 295 MGDL [facility] Specimen (Source) Anatomical Collection Method Collection Time Re ceived Time Location / / Volume Laterality 12/06/2011 9:31 AM CDT Narrative [facility] - 04/06/19 14 8:56 AM COMPLAINT INVESTIGATOR LDL Cholesterol is the primary guide to therapy. The NCEP recommends further evaluation o f: patients with cholesterol greater than 200 mg/dL if additional risk factor s are present, cholesterol greater than 240 mg/dL, triglycerides greater than 15 0 mg/dL, or HDL less than 40 mg/dL. Historical Provider LAB BLOOD ADD-ON Performing Organization Address City/State/ZIP Code Phon e Number [facility] documented in this encounter Visit Diagnoses Not on filedocumented in this encounter
--- OUTSIDE RECORDS SUMMARY | 2021-12-12 09:59 | XMS_ITS | Encounter Summary ---
:1975 Author Organization [facility] Address [address] [place] [address] Care Team Providers Name Role Phone Unavailable Primary Care Provider Unavailable Encounter Details Date Type Department Care Team Description 02/27/2012 Hospital Encounter HX NO MAPPING Provider, Historical [...] Depression Total Score: 7 01/01/2012 2:55 PM REGISTERED PHLEBOTOMIST PART TIME documented as of this encounter
--- OUTSIDE RECORDS SUMMARY | 2021-12-12 09:59 | XMS_ITS | Encounter Summary ---
:1975 Author Organization [facility] Address [address] [place] [address] Care Team Providers Name Role Phone Unavailable Primary Care Provider Unavailable Encounter Details Date Type Department Care Team Description 06/27/2012 Hospital Encounter HX [facility] ME Wyatt Hirsch, N.P. [address] [place] [address] [id number] (Wo rk) Social History Tobacco Use Types Packs/Day Years Used Date Smoking Tobacco: Never Assessed Sex Assigned at Date Recorded Not on file documented as of this encounter Last Filed Vital Signs Vital Sign Reading Time Taken Comments Blood Pressure 132/88 06/27/2012 1:20 PM CDT Pulse 88 06/27/2012 1:20 PM CDT Temperature - - Respiratory Rate 18 06/27/2012 1:20 PM CDT Oxygen Saturation - - Inhaled Oxygen Concentration - - Weight 127 kg (280 lb 3.3 oz) 06/27/2012 1:20 PM CDT Height 161 cm (5' 3.39) 06/27/2012 1:20 PM CDT Body Mass Index 49.03 06/27/2012 1:20 PM CDT documented in this encounter Progress Notes Giuliano Hirsch, N.P. - 06/27/2012 1:10 PM CDT [id number] CHIEF COMPLAINT/REASON FOR VISIT Water retention in legs, weight gain. HISTORY OF PRESENT ILLNESS Mirella is a 36-year-old female who is here today with concerns about fluid buildup in her lower extremities. She states for the past 2 to 3 weeks she has noticed some swelling in her lower extremities and she actually feels this is extended up into her abdomen as her clothes are feeling tighter. She states that in the morning it is not so bad but as the day goes on it definitely gets worse. She has gained according to her scale approximately 13 pounds. She has never had an issue like this before. Shenotes that she has been more thirsty than normal. She has tried to eliminate certain foods from her diet such as sweets and salts and hasn't noted much improvement in her symptoms. She has noted that she is urinating more frequently. As far as her medications, she has stopped taking the diclofenac prior to her surgery and just actually started back on it this week. She thought this could be helpful related to her recent back surgery which happened on June 03. She stopped her Effexor as she reports that she was having a hard time remembering to take it before her back surgery and really has not been on this medication as it was prescribed for quite some time. She feels as though her mood is doing okay. She denies any difficulty with shortness of breath. She does note that she has asthma symptoms induced by allergies which have been acting up a little bit this spring. She also notes that she has had increased restless leg symptoms. She has been taking her Requip 2 tablets typically when only 1 tablet was necessary. CURRENT MEDICATIONS Changes today include discontinuing the Effexor. ALLERGIES Codeine causes confusion. PAST MEDICAL/SURGICAL HISTORY Past medical history is reviewed and unchanged. Please see EMR. VITAL SIGNS Temperature 36.6, pulse 88, respirations 18, blood pressure 132/88, O2 sat is 98% on room air. Weight is 127 kg which is up 6 kg from 4 weeks ago. PHYSICAL EXAMINATION GENERAL: Mirella is alert, oriented times 3, appears in no acute distress. CARDIOVASCULAR: Heart rate is regular; S1, S2 is present. No murmur or rub. LUNGS: Clear to auscultation. EXTREMITIES: Lower extremities are examined. She does have 1 to 2 plus edema in her lower extremities, but it is worse around the feet and the ankles and gets better as you move up her lower extremities. There is no redness or warmth noted. DIAGNOSTICS: CBC, CMP, BNP and urinalysis are pending at time of dictation. IMPRESSION/REPORT/PLAN Edema. PLAN: Reviewed briefly the Mirella the possible causes of her symptoms. At this time we will start with some basic lab work to try to determine the cause. We will contact her by phone regarding the results once they are available to determine further treatment. Mirella's questions have been addressed and she is agreeable to this plan of care. PATIENT EDUCATION: Ready to learn No apparent learning barriers were identified Learning preferences include listening Explained diagnosis and treatment plan Patient/Child/Caregiver expressed understanding of the content Mariya Lewis/danielle Electronically Signed By: GIULIANO HIRSCH NP On: 07/08/2012 07:55 AM Source: [facility] [id number] Document Id: [id number] documented in this encounter Miscellaneous Notes Miscellaneous - Giuliano Hirsch N.P. - 06/27/2012 1:48 PM CDT Ambulatory Patient Summary [address] [address] Visit Information Name: MIRELLA JOHNSON [facility] Number: [id number] Current Date: 06/27/2012 13:48:43 Physicians Attending Provider: GIULIANO HIRSCH NP Primary Care Provider: GIULIANO HIRSCH NP Your Medications Here is a list of your medications. It is important to take your medications as directed. Use a pillbox or chart to help remind you to take your medications. Please let your doctor or nurse know if you have problems taking your medications. Medication/Strength Dose Route Frequency Indications/Special Instructions/Comments diclofenac (diclofenac sodium 100 mg oral tablet, [...] Substance Reaction Symptoms Category Comments codeine Drug Your Problem List Problem Status Onset Comments Asthma, Unspecified Active 10/03/10 no known date of onset Agoraphobia with Panic Disorder Active 10/03/10 noknown date of onset Post-traumatic stress disorder (PTSD) Active 02/05/1994 Dysthymic Disorder Active 1995 Restless legs syndrome Active 02/05/1999 Low back pain* Active 08/09/2009 Your Upcoming Appointments Date Time Location Reason Provider 07/26/2012 16:45 [facility] Family [facility] Health Waist Pleater Your Goals/Additional instructions: Source: [facility] VNG Document Id: [id number] Miscellaneous - Giuliano Hirsch, N.P. - 06/27/2012 1:48 PM CDT Ambulatory Depart Summary [place] [id number] Visit Information Name: ELIZABETH MIRELLAWESTLEY VALDOVINOS [facility] Number: [id number] Visit Date: 06/27/2012 13:48:42 Attending Provider: GIULIANO HIRSCH NP Primary Care Provider: GIULIANO HIRSCH NP MIRELLA JOHNSON has been given the following list of medications: Your Medications It is important to take your medications as directed. Use a pill box or chart to help remind you to take your medications. Please let your doctor or nurse know if you have problems taking your medications. Medication/Strength Dose Route Frequency Indications/Special Instructions/Comments diclofenac (diclofenac sodium 100 mg oral tablet, [...] your provider for clarification. Additional Information: Source: [facility] POWERCHART Document Id: [id number] Miscellaneous - Annmarie Ludwig L.P.N. - 06/27/2012 1:20 PM CDT Adult Filler Leaf Cutter Long Intake/History Adult Filler Leaf Cutter Long Intake/History Entered On: 06/27/2012 13:26 CDT Performed On: 06/27/2012 13:20 CDT by ANNMARIE LUDWIG LPN Intake Chief Complaint : retention fluid , legs, feet ,abd,about 13 lbs up Onset of Symptoms : 2-3 weeks ago Temperature Core : 36.6 DegC(Converted to: 97.9 DegF) Peripheral Pulse Rate : 88 /min Respiratory Rate : 18 /min Heart Rhythm : Regular Systolic Blood Pressure : 132 mmHg Diastolic Blood Pressure : 88 mmHg NIBP Mean : 103 mmHg BP Location : Right upper extremity Blood Pressure Cuff Size : Large SpO2 : 98 % Oxygen Therapy : Room air Height : 161 cm(Converted to: 5 ft 3 inch(es), 63.39 inch(es)) Actual Weight : 127.1 kg(Converted to: 280 lb 3 oz) Weight Source : Standing scale Dosing Weight Clinic : 127.1 kg Clinic BSA : 2.38 Body Mass Index : 49.03 kg/m2 ANNMARIE LUDWIG LPN - 06/27/2012 13:20 CDT General Info Information Given By : Patient Languages : Yoruba ANNMARIE LUDWIG LPN - 06/27/2012 13:20 CDT Subjective Pain Symptoms : No ANNMARIE LUDWIG LPN - 06/27/2012 13:20 CDT Dependent Habits Tobacco Use/Currently Using : No Smoking Status : Never smoker ANNMARIE LUDWIG LPN - 06/27/2012 13:20 CDT Tobacco Use Grid Last Use : never ANNMARIE LUDWIG LPN - 06/27/2012 13:20 CDT Alcohol Use : No ANNMARIE LUDWIG Alina [facility] - 06/27/2012 13:20 CDT Caffeine Use Grid Caffeine Use : None VINH ANNMARIE Fuller [facility] - 06/27/2012 13:20 CDT Recreational Drug Use Grid Drug Use : None ANNMARIE LUDWIG Alina [facility] - 06/27/2012 13:20 CDT Source: [facility] POWERCHART Document Id: [id number] documented in this encounter Plan of Treatment Not on filedocumented as of this encounter Procedures Procedure Name Priority Date/Time Associated Comments Diagnosis URINALYSIS, ROUTINE Routine 06/27/2012 2:06 PM Re sults for this CDT procedure are i n the results section. AUTOMATED Routine 06/27/2012 2:05 PM Results f or this DIFFERENTIAL, B CDT procedure ar e in the results section. NT-PRO B-TYPE Routine 06/27/2012 2:05 PM Results for this NATRIURETIC PEPTIDE CDT procedur e are in (BNP), S the results section. CBC WITH DIFFERENTIAL, Routine 06/27/2012 2:05 PM Results for this B CDT procedure are i n the results section. COMPREHENSIVE Routine 06/27/2012 2:05 PM Results for this METABOLIC PANEL, S/P CDT procedu re are in the results section. documented in this encounter Results Urinalysis, Routine (06/27/2012 2:06 PM CDT) [facility] gist Method Time Signature HXUr Color Yellow Yellow POWERCHART Appearance Clear Clear POWERCHART Glucose Negative Negative POWERCHART HXBILIRUBIN Negative Negative POWERCHART Ketones, QL(U) Negative Negative POWERCHART Specific 1.025 1.000 - POWERCHART [place], POCT, U 1.030 pH, POCT, Urine 7.0 5.0 - 8.0 POWERCHART Protein, Ur, Dip Negative Negative POWERCHART Urobilinogen 0.2 POWERCHART HXNITRITE Negative Negative POWERCHART HXBLOOD Negative Negative POWERCHART Leukocyte Negative Negative POWERCHART Esterase Source Clean Void POWERCHART Urine Specimen (Source) Anatomical Collection Method Collection Time Re ceived Time Location / / Volume Laterality Urine 06/27/2012 2:06 PM CDT Giuliano Hirsch N.P. LAB URINE ORDERABLES Performing Organization Address City/State/ZIP Code Phon e Number POWERCHART (ABNORMAL) Automated Differential (06/27/2012 2:05 PM CDT) [facility] Method Time Signature Neutro % 43.7 42.0 - POWERCHART 77.0 Lymphocytes % 35.3 23.0 - POWERCHART 44.0 HX [place] % 8.1 2.0 - 18.0 POWERCHART HX Eos % 12.0 (H) 1.0 - 5.0 POWERCHART HX Baso % 0.9 0.0 - 1.0 POWERCHART Absolute 2.98 1.70 - POWERCHART Neutrophils 7.00 109L Lymphocytes 2.41 0.90 - POWERCHART 2.90 X109L Monocytes 0.55 0.30 - POWERCHART 0.90 X109L Eosinophils 0.82 (H) 0.05 - POWERCHART 0.50 X109L Absolute 0.06 0.00 - POWERCHART Basophil 0.30 X109L Specimen Anatomical Collection Method Collection Time Receive d Time (Source) Location / / Volume Laterality Blood 06/27/2012 2:05 PM 3 2:05 CDT PM CDT Giuliano Hirsch N.P. LAB BLOOD ADD-ON Performing Organization Address City/[facility] Code Phon e Number POWERCHART (ABNORMAL) CBC with Differential (06/27/2012 2:05 PM CDT) [facility] Method Time Signature Leukocytes 6.8 3.4 - 10.5 POWERCHART X109L Erythrocytes 3.96 3.90 - POWERCHART 5.03 [id number] Hemoglobin 11.9 (L) 12.0 - POWERCHART 15.5 GDL Hematocrit 36.5 34.9 - POWERCHART 44.5 MCV 92.2 82.0 - POWERCHART 98.0 FL HX RDW 13.9 11.9 - POWERCHART 15.5 Platelet Count 388 150 - 450 POWERCHART X109L HXDifferential? Auto POWERCHART Specimen (Source) Anatomical Collection Method Collection Time Re ceived Time Location / / Volume Laterality Blood 06/27/2012 2:05 PM CDT Giuliano Hirsch N.P. LAB BLOOD ADD-ON Performing Organization Address City/State/ZIP Code Phon e Number POWERCHART NT-Pro B-Type Natriuretic Peptide (BNP) (06/27/2012 2:05 PM CDT) P athologist Signature B-Type 25 5 - 200 POWERCHART Natriuretic PGML Peptide (BNP) Comment: BNP is used as an aid in the diagnosis o f congestive heart failure (CHF) 101- 200 pg/mL likely compensated CHF 200 - 400 pg/mL likely moderate CHF >400 pg/mL likely moderate to severe CHF Specimen (Source) Anatomical Collection Method Collection Time Re ceived Time Location / / Volume Laterality Blood 06/27/2012 2:05 PM CDT Giuliano Hirsch N.P. LAB BLOOD ADD-ON Performing Organization Address City/State/ZIP Code Phon e Number POWERCHART (ABNORMAL) CMP (Comprehensive Metabolic Panel) (06/27/2012 2:05 PM CDT) Patholo gist Method Time Signature Alanine 21 15 - 37 POWERCHART Amniotransferase, LD UL Albumin, S 4.2 3.5 - 5.0 POWERCHART GDL Alkaline 63 37 - 98 POWERCHART Phosphatase, S UL Aspartate 15 12 - 31 POWERCHART Aminotransferase UL (AST), S Sodium, S 137.2 135.0 - POWERCHART 145.0 MML Potassium, S 3.9 3.6 - 4.8 POWERCHART MMOLL Chloride, S 105 100 - 108 POWERCHART MMOLL CO2 Total 27.4 23.0 - POWERCHART 29.0 MMOLL BUN (Blood Urea 10 7 - 18 POWERCHART Nitrogen), S MGDL Creatinine 0.64 0.60 - POWERCHART 1.30 MGDL Calcium, Total, S 9.1 8.6 - POWERCHART 10.0 MGDL Anion Gap 5 (L) 10 - 20 POWERCHART MMOLL HXeGFR (MDRD) >60 >=60 POWERCHART [id number] Comment: A GFR of <60 mL/min is indicative of chr onic kidney disease. (MDRD calculation valid on patients 18-7 0 years.) eGFR Black/ >60 >=60 [id number] POWERCHART Bilirubin, Total, S 0.1 0.1 - 1.0 MGDL POWER CHART Total Protein, S 7.0 6.3 - 7.9 GDL POWERCHAR T Glucose 86 70 - 139 MGDL POWERCHART Specimen (Source) Anatomical Collection Method Collection Time Re ceived Time Location / / Volume Laterality Blood 06/27/2012 2:05 PM CDT Giuliano Hirsch N.P. LAB BLOOD ADD-ON Performing Organization Address City/State/ZIP Code Phon e Number POWERCHART documented in this encounter Visit Diagnoses Not on filedocumented in this encounter Additional Health Concerns Assessment Noted Time PHQ-9 Depression Total Score: 7 01/01/2012 2:55 PM [facility] documented as of this encounter
--- OUTSIDE RECORDS SUMMARY | 2021-12-12 09:59 | XMS_ITS | Encounter Summary ---
:1975 Author Organization [facility] Address [address] [place] [address] Care Team Providers Name Role Phone Unavailable Primary Care Provider Unavailable Encounter Details Date Type Department Care Team Description 12/27/2015 Hospital Encounter HX [facility] Maximiliano Ferrara M.D. [address] [place], [place] [phone] (Wo rk) Social History Tobacco Use Types Packs/Day Years Used Date Smoking Tobacco: Never Assessed Sex Assigned at Date Recorded Not on file documented as of this encounter Last Filed Vital Signs Vital Sign Reading Time Taken Comments Blood Pressure 139/83 12/27/2015 11:20 AM HEALTH INFORMATION TECHNICIAN Pulse 96 12/27/2015 11:20 AM HEALTH INFORMATION TECHNICIAN Temperature - - Respiratory Rate - - Oxygen Saturation - - Inhaled Oxygen Concentration - - Weight - - Height 161 cm (5' 3.39) 12/27/2015 11:20 AM HEALTH INFORMATION TECHNICIAN Body Mass Index - - documented in this encounter Medications at Time of Discharge Medication Sig Dispensed Refills Start Date End Date albuterol 90 mcg/actuation Inhale 2 puffs. 0 08/06 inhaler diclofenac sodium Take 1 tablet by 0 09/02/2013 (VOLTAREN XR) 100 mg 24 hr mouth daily. tablet documented as of this encounter Consult Notes Ie, Herminio - 12/27/2015 1:24 PM CST Mirella is a very pleasant 40-year-old female. CHIEF COMPLAINT/REASON FOR VISIT Headache. Consult at the request of Nando Rojas. HISTORY OF PRESENT ILLNESS Headache. Mirella presents with 5 week history of sudden onset headaches. She describes symptoms as dull pain with occasional stabbing that localizes to the frontal/temporal regions bilaterally, occasionally occipital involvement. Symptoms are always bilateral. Rates the pain between 3-9/10 as they can f luctuate. Currently she rates the pain a 3/10. Symptoms have been on and off, but more present than not over the past 5 weeks. Associated photophobia, visual disturbance when watching moving objects, and phonophobia. Few times over the past weeks, she has felt transient dizziness when rolling over in bed. Feels the room is spinning, last about 5 minutes. Was recently treated for sinusitis with two round of Azithromycin with no relief. Has taken Ibuprofen, Toradol, and Oxycodone with little relief. Denies diplopia, lasting vision changes, nausea, vomiting, tinnitus, ear pressure/pain, hearing loss, nasal congestion, nasal drainage, sinus pain, sinus pressure, postnasal drip, fever, and changes in sm ell/taste. Does not tolerate nasal spray or sinus rinse. History of sinus surgery [place] [address] scan done on 12/06/2015 was reviewed and appreciated with the patient and Dr. Ferrara. PAST ENT HISTORY Sinus surgery 2000 REVIEW OF SYSTEMS Denies fever and cough. PAST MEDICAL HISTORY Obesity, Unspecified Depressive Disorder, Not Elsewhere Classified Allergic Rhinitis Due to Other Allergen Post-traumatic stress disorder (PTSD) Asthma, Unspecified FAMILY HISTORY No history of early hearing loss, bleeding disorders, or anesthesia problems. SOCIAL HISTORY Denies alcohol, tobacco, and illicit drug use. NEW PATIENT QUESTIONNAIRE: Reviewed including 10 system review, past medical, surgical, family and social history, medications, and allergies. Please refer to scanned report. PHYSICAL EXAMINATION VITAL SIGNS: Noted. GENERAL: Appears well. RESPIRATORY: Quiet respirations. VOICE: Normal. FACE: No syndromic features apparent, facial movement normal and symmetric. EXTERNAL EARS: Pinnae reveal no suspicious lesions bilaterally. No periauricular discomfort noted. OTOSCOPIC: Canals normal, no erythema or edema. TMs: LEFT - Translucent, healthy with normal mobility. RIGHT - Translucent, healthy with normal mobility. EXTERNAL NOSE: Normal INTRANASAL: Mild leftward septal deviation. Patent, healthy mucosa. No discharge or crusting. ORAL: Mucous membranes pink and moist. No oral lesions. Dentition good. OROPHARYNX: Normal PROCEDURE: Flexible nasolaryngoscopy. See Dr. Ferrara's note for findings. NECK: No lymphadenopathy, no masses, no thyroid or salivary gland enlargement. NEUROLOGIC: Grossly normal. CN II-XII grossly intact. IMPRESSION/REPORT/PLAN 1. Headache. Reassured patient that symptoms are unlikely related to ongoing sinus disease as her CTscan reveals no acute infection and findings on flexible nasolaryngoscopy should not contribute to headache symptoms. Advised that she return to her primary care provider to seek out other possibilities such as neurologic origin. Offered MRI to rule out malignancy, patient opted to follow up with primary care first. 2. Nasal polyposis. Suggested that patient try nasal steroid spray and/or saline rinse to treat nasal polyps. She does not tolerate nasal sprays and opted against use at this time. Patient expressed understanding, denied additional questions, and is in agreement with today's plan. Follow up for additional ENT concerns as needed. Electronically Signed By: HERMINIO THAO On: 01/14/2016 11:34 AM Modified by and Electronically Signed by: HERMINIO THAO On: 12/27/2015 01:41 PM Co-Signed By: MAXIMILIANO FERRARA MD On: 01/24/2016 12:15 PM Source: [employer] Document Id: [id number] TH INFORMATION TECHNICIAN Maximiliano Ferrara M.D. - 12/27/2015 10:32 AM CST [id number] Ms. Edwards is a pleasant, 40-year-old woman. CHIEF COMPLAINT/REASON FOR VISIT Headaches, dizziness. REFERRAL SOURCE Consult requested by Katty Rojas. Please see Herminio Thao's note for additional details. Patient has a 5-week history of headaches, fairly sudden onset. She has no associated sinonasal symptoms. She has had sinus surgery by Dr. Manriquez in 2000. CT report and images reviewed, from 2015December 05, demonstrating surgical maxillary antrostomies with some mucosal thickening around the remaining ostiomeatal unit. Mild polypoid change. There is some mild mucosal thickening floor of the maxillary sinus, right more than left. There is mild mucosal th ickening remaining uncinate process. PROCEDURE NASAL ENDOSCOPY, 2.4 MM, FLEXIBLE: Surgical antrostomy is visible. Maxillary sinuses show no sign ofpurulence or mucostasis. No erythema. Mild polypoid change, area of the middle meatus. Middle turbinates partially resected. Nasopharynx, hypopharynx and larynx are unremarkable. I interviewed and examined the patient personally with Eliana Matson. I reviewed her note, please see her note for additional details. I agree with her findings, assessment and plan/recommendations. IMPRESSION/REPORT/PLAN 1. Headaches-very unlikely related to any sinonasal disease. Recommended follow up with primary provider. Discussed option of MRI to evaluate headache etiology. She would like to defer to revisiting her primary provider, Katty Rojas. Given associated visual symptoms and dizziness, consider migraines and migrainous vestibulopathy. 2. Nasal polyposis-minimal. Encouraged fluticasone and saline irrigations. She declined at this timedue to aversion to these treatments. Follow up as needed. Maximiliano Ferrara M.D./vanessa cc: Katty Rojas, HOUSE FATHER [address] [place] [address] w/Herminio Vizcarra 12/27/15 report Electronically Signed By: MAXIMILIANO FERRARA MD On: 01/24/2016 06:12 AM Source: [facility] MHSDOLBEYNONRADSYS Document Id: [id number] TH INFORMATION TECHNICIAN documented in this encounter Miscellaneous Notes Miscellaneous - Fernando Wheat LDevynPDevynN. - 12/27/2015 11:20 AM CST Adult Stone And Plate Preparer Apprentice Intake/History Adult Stone And Plate Preparer Apprentice Intake/History Entered On: 12/27/2015 11:21 HEALTH INFORMATION TECHNICIAN Performed On: 12/27/2015 11:20 HEALTH INFORMATION TECHNICIAN by FERNANDO WHEAT LPN Intake Chief Complaint : New pt - here for dizziness and headaches Temperature Core : 36.7 DegC(Converted to: 98.1 DegF) Peripheral Pulse Rate : 96 /min Systolic Blood Pressure : 139 mmHg Diastolic Blood Pressure : 83 mmHg NIBP Mean : 102 mmHg BP Location : Left upper extremity Blood Pressure Cuff Size : Large Height : 161 cm(Converted to: 5 ft 3 inch(es), 63 inch(es)) FERNANDO WHEAT LPN - 12/27/2015 11:20 HEALTH INFORMATION TECHNICIAN General Info Information Given By : Patient Languages : Montserratian Is Patient Female and 13-50 no hysterectomy : Yes Status : Patient denies Are you ? : No FERNANDO WHEAT LPN - 12/27/2015 11:20 HEALTH INFORMATION TECHNICIAN Subjective Pain Symptoms : No FERNANDO WHEAT WAGON DRIVER SALESPERSON - 12/27/2015 11:20 HEALTH INFORMATION TECHNICIAN Dependent Habits Smoking Status : Never smoker Tobacco 2A : No Tobacco Use/Currently Using : No Tobacco Use/Last 30 Days : No Tobacco Use/Last 12 months : No FERNANDO WHEAT WAGON DRIVER SALESPERSON - 12/27/2015 11:20 HEALTH INFORMATION TECHNICIAN Caffeine Use Grid Caffeine Use : None FERNANDO WHEAT LPN - 12/27/2015 11:20 HEALTH INFORMATION TECHNICIAN Recreational Drug Use Grid Drug Use : None FERNANDO WHEAT WAGON DRIVER SALESPERSON - 12/27/2015 11:20 HEALTH INFORMATION TECHNICIAN Source: [facility] [employer] Document Id: [id number] HEALTH INFORMATION TECHNICIAN!31 TH INFORMATION TECHNICIAN Telephone Encounter - Conversion, Historical Provider Ser - 12/27/2015 8:10 AM CST *Phone Message From: CORNELL FULLER ( [facility] [employer]) To: Ears/Nose/Throat Nurse; Sent: 12/27/2015 08:10:00 HEALTH INFORMATION TECHNICIAN Subject: *Phone Message Caller is: ( X ) Patient ( ) Mother ( ) Father ( ) Spouse ( ) Daughter ( ) Son ( ) Pharmacy ( ) Other: Physician: Tenisha Patient Reason for Call: Asking to be put on cancellation list for sooner appt Message: Advice/Action: Source used: ( ) Verbalizes understanding of instructions ( ) [...] Call back cell phone number ( ) Source: [facility] POWERCHART Document Id: [id number] documented in this encounter Plan of Treatment Not on filedocumented as of this encounter Visit Diagnoses Not on filedocumented in this encounter Additional Health Concerns Assessment Noted Time PHQ-9 Depression Total Score: 9 06/06/2013 4:40 PM CDT documented as of this encounter
--- OUTSIDE RECORDS SUMMARY | 2021-12-12 09:59 | XMS_ITS | Encounter Summary ---
:[address] [facility] Address [address] [place] [address] Care Team Providers Name Role Phone Unavailable Primary Care Provider Unavailable Encounter Details Date Type Department Care Team Description 12/06/2015 Hospital Encounter HX [facility] Nando Flowers, C.N.P. [address] [place] [address] (Wo rk) Social History Tobacco Use Types Packs/Day Years Used Date Smoking Tobacco: Never Assessed Sex Assigned at Date Recorded Not on file documented as of this encounter Last Filed Vital Signs Vital Sign Reading Time Taken Comments Blood Pressure - - Pulse - - Temperature - - Respiratory Rate - - Oxygen Saturation - - Inhaled Oxygen Concentration - - Weight - - Height 161 cm (5' 3.39) 12/06/2015 7:56 AM CDT Body Mass Index - - documented in this encounter Medications at Time of Discharge Medication Sig Dispensed Refills Start Date End Date albuterol 90 mcg/actuation Inhale 2 puffs. 0 08/06 inhaler diclofenac sodium Take 1 tablet by 0 09/02/2013 (VOLTAREN XR) 100 mg 24 hr mouth daily. tablet documented as of this encounter Miscellaneous Notes Miscellaneous - Conversion, Historical Provider Ser - 12/06/2015 11:59 PM CDT Coding Summary-Paper Based CODING DATE: 12/13/2015 FINAL [place] [facility] STATUS: * Discharged to Home or Self Care PAYOR: Commercial Insurance ADMIT DX: REASON FOR VISIT DX: FINAL DX: PRINCIPAL: R51 Headache SECONDARY: J34.89 Other specified disorders of nose and nasal sinuses Z98.890 Other specified postprocedural states PROCEDURES DOCTOR NAME DATE NOTE: The code number assigned matches the documented diagnosis and / or procedure in the patient's chart. However, the narrative phrase printed from the coding software may appear abbreviated, or result in slightly different terminology. Revised Coded By: GENI GRIGGS Revised Date Saved: 12/13/2015 12:54 pm [facility] Document Id: [id number] documented in this encounter Plan of Treatment Not on filedocumented as of this encounter Visit Diagnoses Not on filedocumented in this encounter Additional Health Concerns Assessment Noted Time PHQ-9 Depression Total Score: 9 06/06/2013 4:40 PM CDT documented as of this encounter
--- OUTSIDE RECORDS SUMMARY | 2021-12-12 09:59 | XMS_ITS | Encounter Summary ---
:1975 Author Organization [facility] Address [address] [place] [address] Care Team Providers Name Role Phone Unavailable Primary Care Provider Unavailable Encounter Details Date Type Department Care Team Description 01/01/2012 Hospital Encounter HX [facility] Wyatt Hirsch N.P. [address] [place] [phone] (Wo rk) Social History Tobacco Use Types Packs/Day Years Used Date Smoking Tobacco: Never Assessed Sex Assigned at Date Recorded Not on file documented as of this encounter Last Filed Vital Signs Vital Sign Reading Time Taken Comments Blood Pressure - - Pulse 103 01/01/2012 11:54 AM SOOT BLOWER Temperature - - Respiratory Rate 18 01/01/2012 11:54 AM SOOT BLOWER Oxygen Saturation - - Inhaled Oxygen Concentration - - Weight - - Height - - Body Mass Index - - documented in this encounter Progress Notes Giuliano Hirsch, N.P. - 01/01/2012 11:38 AM CST [id number] CHIEF COMPLAINT/REASON FOR VISIT Lump under her belly button HISTORY OF PRESENT ILLNESS Mirella is a 36-year-old female who is here today with concerns about pain she has been experiencing in her abdomen. She states that it started about three days ago and she actually noticed it when she was sleeping after being out shopping for [employer]. She noticed the pain was around her belly button and that when she would push on it, it felt kind of lumpy and possibly even a hernia. It has been continually sore since that time and uncomfortable. She reports that her pants rubbing on it makes itseem worse. She has had no fever. No nausea or vomiting. No diarrhea or constipation. No drainage has been coming from her belly button. CURRENT MEDICATIONS Reviewed. New prescription today is Keflex 500 mg one three times daily x10 days. ALLERGIES Codeine causes confusion. PAST MEDICAL/SURGICAL HISTORY Reviewed and unchanged. Please see EMR. VITAL SIGNS Temperature 36.5. Pulse 103. Respirations 18. Blood pressure 142/102. Oxygen saturation is 97% on room air. PHYSICAL EXAMINATION GENERAL: Mirella is alert and oriented x3. She appears in no acute distress. HEENT: Head is normocephalic, atraumatic. HEART: Heart rate is regular. S1, S2 is present. No murmur or rub. LUNGS: Clear to auscultation. ABDOMEN: Soft, nondistended. Bowel sounds are present x4. Normoactive. Abdomen is palpated. She doesreport tenderness with palpation of deep within her belly button. There is an area of firmness notedalthough there is no fluctuance and no particular discreteness about it. Engagement of the abdominalmuscles does not produce any type of hernia. IMPRESSION/REPORT/PLAN Abdominal pain, possible skin infection. PLAN 1. Discussed with Mirella that she may be having some type of an internal skin infection happening andthis would be the cause of her symptoms. At this time we opted to go ahead and put her on some Keflex 500 mg one three times daily x10 days. I also suggested the use of warm compresses. We discussed that if her symptoms are worsening or if she develops fever or any drainage from her belly button this would certainly require follow-up. 2. I also was discussing with Mirella her blood pressure being elevated when she happened to mention that she wanted to talk about weight loss methods as this is probably what is making her nervous and elevating her blood pressure. She states that recently she has lost approximately 12 pounds and then plateaued and then gained it all back and is wanting to guidance on this. We discussed the importance of eating three meals with snacks in between, high protein, as well as increasing her physical activity levels, even starting with something as simple as a pedometer. She was appreciative of this information and will follow- up in this regard in the next several weeks. Patient Education Ready to learn No apparent learning barriers were identified Learning preferences include listening Explained diagnosis and treatment plan Patient/Child/Caregiver expressed understanding of the content Mariya Lewis/carmen Electronically Signed By: GIULIANO HIRSCH NP On: 01/08/2012 08:55 AM Source: [facility] MHSDOLBEYNONRADSYS Document Id: [id number] BLOWER documented in this encounter Miscellaneous Notes Miscellaneous - Annmarie Ludwig L.P.N. - 01/01/2012 2:56 PM CST Quality Measures Quality Measures Entered On: 01/01/2012 14:56 SOOT BLOWER Performed On: 01/01/2012 14:56 SOOT BLOWER by ANNMARIE LUDWIG LPN Depression PHQ-9 Score : 7 ANNMARIE LUDWIG LPN - 01/01/2012 14:56 SOOT BLOWER Source: [facility] POWERCHART Document Id: [id number] BLOWER Miscellaneous - Annmarie Ludwig L.PDevynNDevyn - 01/01/2012 2:55 PM CST PHQ-9 PHQ-9 Entered On: 01/01/2012 14:56 SOOT BLOWER Performed On: 01/01/2012 14:55 SOOT BLOWER by ANNMARIE LUDWIG LPN PHQ-9 Little interest or pleasure in doing things : Several days Feeling down, depressed, or hopeless : Not at all Trouble falling or staying asleep, or sleeping too much : More than half the days Feeling tired or having little energy : Nearly every day Poor appetite or overeating : Several days Feeling bad about yourself or that you are a failure : Not at all Trouble concentrating on things : Not at all Moving or speaking slowly; restless or fidgety : Not at all Thoughts that you would be better off /hurting self : Not at all PHQ-9 Calculated Score : 7 Problems make work, home, or dealing with others : Somewhat difficult ANNMARIE LUDWIG LPN - 01/01/2012 14:55 SOOT BLOWER Source: [facility] POWERCHART Document Id: [id number] BLOWER Miscellaneous - Giuliano Hirsch NDevynP. - 01/01/2012 1:20 PM CST Ambulatory Patient Summary [address] [address] Visit Information Name: MIRELLA JOHNSON [facility] Number: [id number] Current Date: 01/01/2012 13:20:40 Physicians Attending Provider: GIULIANO HIRSCH NP Primary Care Provider: GIULIANO HIRSCH NP Your Medications Here is a list of your medications. It is important to take your medications as directed. Use a pillbox or chart to help remind you to take your medications. Please let your doctor or nurse know if you have problems taking your medications. Medication/Strength Dose Route Frequency Indications/Special Instructions/Comments cephalexin (Keflex 500 mg oral capsule) 500 mg Oral three times a day for 10 Days diclofenac (diclofenac sodium 100 mg oral tablet, [...] at bedtime Oral as directed levonorgestrel (Mirena) Attention: If you have any medications at [...] No Appointments found Your Goals/Additional instructions: Source: [facility] [employer] Document Id: [id number] BLOWER Miscellaneous - Giuliano Hirsch N.P. - 01/01/2012 1:20 PM CST Ambulatory Depart Summary [place] [address] [place] [address] Visit Information Name: ELIZABETH MIRELLAWESTLEY VALDOVINOS [facility] Number: [id number] Visit Date: 01/01/2012 13:20:39 Attending Provider: GIULIANO HIRSCH NP Primary Care [...] medications. Medication/Strength Dose Route Frequency Indications/Special Instructions/Comments cephalexin (Keflex 500 mg oral capsule) 500 mg Oral three times a day for 10 Days diclofenac (diclofenac sodium 100 mg oral tablet, [...] at bedtime Oral as directed levonorgestrel (Mirena) Attention: If you have any medications at home that are not on this list, DO NOT take them until youcontact your provider for clarification. Additional Information: Source: [facility] [employer] Document Id: [id number] BLOWER Miscellaneous - Giuliano Hirsch NDevynP. - 01/01/2012 1:20 PM CST Quality Measures Quality Measures Entered On: 01/01/2012 13:20 SOOT BLOWER Performed On: 01/01/2012 13:20 SOOT BLOWER by GIULIANO HIRSCH NP Depression PHQ-9 Score : 7 GIULIANO HIRSCH DEICER REPAIRER PNEUMATIC - 01/01/2012 13:20 SOOT BLOWER Source: [facility] [employer] Document Id: [id number] BLOWER Jarred - Annmarie Ludwig L.PDevynN. - 01/01/2012 12:00 PM CST Health Assessment Health Assessment Entered On: 01/01/2012 12:00 SOOT BLOWER Performed On: 01/01/2012 12:00 SOOT BLOWER by ANNMARIE LUDWIG LPN Health Assessment Complete Health Assessment Complete or Modified : Annual Health Assessment Annual Health Assessment Completed : Yes ANNMARIE LUDWIG LPN - 01/01/2012 12:00 SOOT BLOWER Nutrition Nutrition Risk Factors by History Adult : None ANNMARIE LUDWIG LPN - 01/01/2012 12:00 SOOT BLOWER Functional Current Daily Living Assistance : None ANNMARIE LUDWIG LPN - 01/01/2012 12:00 SOOT BLOWER Dependent Habits Tobacco Use/Currently Using : No Smoking Status : Never smoker ANNMARIE LUDWIG LPN - 01/01/2012 12:00 SOOT BLOWER Tobacco Use Grid Last Use : never ANNMARIE LUDWIG LPN - 01/01/2012 12:00 SOOT BLOWER Caffeine Use Grid Caffeine Use : None ANNMARIE LUDWIG LPN - 01/01/2012 12:00 SOOT BLOWER Recreational Drug Use Grid Drug Use : None ANNMARIE LUDWIG LPN - 01/01/2012 12:00 SOOT BLOWER Psychosocial Domestic Abuse Concerns : None ANNMARIE LUDWIG LPN - 01/01/2012 12:00 SOOT BLOWER Advance Directive Advanced Directives : No ANNMARIE LUDWIG LPN - 01/01/2012 12:00 SOOT BLOWER Educ Needs Learning Style Preference Adult Grid Patient : None Family : None ANNMARIE LUDWIG LPN - 01/01/2012 12:00 SOOT BLOWER Source: [facility] [employer] Document Id: [id number] BLOWER Miscellaneous - Annmarie Luwdig L.PDevynNDevyn - 01/01/2012 11:54 AM CST Adult Technology Specialist Intake/History Adult Technology Specialist Intake/History Entered On: 01/01/2012 11:59 SOOT BLOWER Performed On: 01/01/2012 11:54 SOOT BLOWER by ANNMARIE LUDWIG LPN Intake Chief Complaint : has lump on near her umbil,to the right Onset of Symptoms : sun afternoon Temperature Core : 36.5C(Converted to: 97.7DegF) Peripheral Pulse Rate : 103/min (HI) Respiratory Rate : 18/min Heart Rhythm : Regular BP Location : Left upper extremity Blood Pressure Cuff Size : Large SpO2 : 97% Oxygen Therapy : Room air Weight Source : Other: no wt taken ANNMARIE LUDWIG LPN - 01/01/2012 11:54 SOOT BLOWER Subjective Pain Symptoms : Yes ANNMARIE LUDWIG LPN - 01/01/2012 11:54 SOOT BLOWER Pain Pain Assessment Grid Pain 1 Location : Abdomen (Comment: umbilical area, right [ANNMARIE LUDWIG LPN - 01/01/2012 11:54 SOOT BLOWER] ) Intensity : 4 ANNMARIE LUDWIG LPN - 01/01/2012 11:54 SOOT BLOWER Dependent Habits Tobacco Use/Currently Using : No Smoking Status : Never smoker ANNMARIE LUDWIG LPN - 01/01/2012 11:54 SOOT BLOWER Tobacco Use Grid Last Use : never ANNMARIE LUDWIG LPN - 01/01/2012 11:54 SOOT BLOWER Alcohol Use : No ANNMARIE LUDWIG LPN - 01/01/2012 11:54 SOOT BLOWER Caffeine Use Grid Caffeine Use : None ANNMARIE LUDWIG LPN - 01/01/2012 11:54 SOOT BLOWER Recreational Drug Use Grid Drug Use : None ANNMARIE LUDWIG LPN - 01/01/2012 11:54 SOOT BLOWER Allergy Allergies (Active) codeine Estimated Onset Date: Unspecified ; Reactions: confusion ; Created By: FIDELINA, GIULIANO R DEICER REPAIRER PNEUMATIC;Reaction Status: Active ; Category: Drug ; Substance: codeine ; Type: Allergy ; Updated By: GIULIANO HIRSCH NP; Reviewed Date: 01/01/2012 11:53 SOOT BLOWER Source: [facility] [employer] Document Id: [id number] BLOWER documented in this encounter Plan of Treatment Not on filedocumented as of this encounter Visit Diagnoses Not on filedocumented in this encounter Additional Health Concerns Assessment Noted Time PHQ-9 Depression Total Score: 7 01/01/2012 2:55 PM SOOT BLOWER documented as of this encounter
--- OUTSIDE RECORDS SUMMARY | 2021-12-12 09:59 | XMS_ITS | Encounter Summary ---
:1975 Author Organization [facility] Address [address] [place] [address] Care Team Providers Name Role Phone Unavailable Primary Care Provider Unavailable Encounter Details Date Type Department Care Team Description 03/01/2012 Hospital Encounter HX [facility] MAIJ Mali Shah M.D. [address] [place] [phone] (Wo rk) Social History Tobacco Use Types Packs/Day Years Used Date Smoking Tobacco: Never Assessed Sex Assigned at Date Recorded Not on file documented as of this encounter Plan of Treatment Not on filedocumented as of this encounter Visit Diagnoses Not on filedocumented in this encounter Additional Health Concerns Assessment Noted Time PHQ-9 Depression Total Score: 7 01/01/2012 2:55 PM FOREST FIRE MANAGEMENT OFFICER documented as of this encounter
--- OUTSIDE RECORDS SUMMARY | 2021-12-12 09:59 | XMS_ITS | Encounter Summary ---
:1975 Author Organization [facility] Address [address] [place] [address] Care Team Providers Name Role Phone Unavailable Primary Care Provider Unavailable Encounter Details Date Type Department Care Team Description 03/04/2012 Hospital Encounter HX [facility] Wyatt Hirsch, N.P. [address] [place] [address] (Wo rk) Social History Tobacco Use Types Packs/Day Years Used Date Smoking Tobacco: Never Assessed Sex Assigned at Date Recorded Not on file documented as of this encounter Last Filed Vital Signs Vital Sign Reading Time Taken Comments Blood Pressure 128/94 03/04/2012 8:56 AM TENTMAKER Pulse 106 03/04/2012 8:56 AM TENTMAKER Temperature - - Respiratory Rate 20 03/04/2012 8:56 AM TENTMAKER Oxygen Saturation - - Inhaled Oxygen Concentration - - Weight - - Height - - Body Mass Index - - documented in this encounter Progress Notes Nori Hirsch, N.P. - 03/04/2012 8:45 AM CST [id number] CHIEF COMPLAINT/REASON FOR VISIT Follow-up on back injury. HISTORY OF PRESENT ILLNESS Dax is a 36-year-old female who is here today for follow-up on her back injury. She was in her work parking lot on February 23, 2012, when she fell and slipped. Initially she had some pain in her lower back but then gradually developed some pain and numbness into her left lower extremity. She has subs equently been seen in our clinic and referred to physical therapy. Due to some findings last week bythe physical therapist such as decreased reflexes and also a positive straight leg raise by Honey Le she was referred for MRI imaging. Dax is here this morning to review her MRI results. Shereports that she does not have pain in her back any longer but she has significant pain as well as numbness into her left lower extremity. She states that the symptoms seem to occur on the front part of her leg and extend all the way down to her ankle and foot. She has not had any bowel or bladder incontinence but has noted a decreased sense of needing to urinate. The pain that she is experiencing inher leg is sharp and shooting at times. She reports her mobility has been significantly limited due to these symptoms. Dax has been using Percocet and diazepam which seem to help with her symptoms but does not totally alleviate them. CURRENT MEDICATIONS Reviewed. Unchanged. Please see EMR. ALLERGIES Codeine causes confusion. PAST MEDICAL/SURGICAL HISTORY Reviewed and unchanged. Please see EMR. VITAL SIGNS Temperature 36.5. Pulse 106. Respirations 20. Blood pressure 128/94. Oxygen saturation is 96% on room air. PHYSICAL EXAMINATION For the most part is deferred today. Dax is sitting in a wheelchair. DIAGNOSTICS: MRI of lumbar spine is reviewed. Significant findings include some degenerative disc disease at L3-L4, but more notably at L4-L5. She has a large central and left central extruded disc migrating superiorly on the left causing moderate central stenosis and impingement on the left L4 nerve root. Degenerative disc disease also is noted at L5-S1. IMPRESSION/REPORT/PLAN 1. Lumbar radiculopathy. 2. Disc herniation. PLAN: Reviewed the MRI findings with Dax and her , Twin. At this time I would like to referon to a excel specialist for further evaluation and treatment of her symptoms. I have also written anote taking her off of work for the time being. We discussed that if her symptoms were to worsen or that she would develop any bowel or bladder incontinence this would require follow-up sooner. Otherwise, we will work through our referral process. She is referred to [facility] spine specialists. Dax's questions have been addressed and she is agreeable to this plan of care. Patient Education Ready to learn No apparent learning barriers were identified Learning preferences include listening Explained diagnosis and treatment plan Patient/Child/Caregiver expressed understanding of the content Mariya Lewis/[facility] Electronically Signed By: NORI HIRSCH NP On: 03/05/2012 03:10 PM Source: [facility] NANDO Document Id: [id number] MAKER documented in this encounter Miscellaneous Notes Miscellaneous - Vu Wilkes L.PDevynN. - 03/21/2012 1:27 PM CST Med Management Document Contains Addenda Addendum by VU WILKES LPN on 21 March 2012 13:34:58 TENTMAKER patient notified Rx's ready to pickup at front end architect Addendum by NORI HIRSCH NP on 21 March 2012 13:28:58 TENTMAKER From: NORI HIRSCH NP To: VU WILKES LPN Sent: 03/21/2012 13:28:58 TENTMAKER Subject: RE:Med Management Approved Order Order: diazepam (Valium 5 mg oral tablet) 1 tab(s) PO 3xDay Qty: 30 tab(s) Refills: 0 Substitutions Allowed Muscle spasm Print - [id number] Signed by NORI HIRSCH NP 03/21/2012 13:28:40 Approved Order Order: oxycodone (oxycodone 5 mg oral tablet) 2 tab(s) PO q6hr Qty: 50 tab(s) Refills: 0 Substitutions Allowed pain Print - [id number] Signed by NORI HIRSCH NP 03/21/2012 13:28:40 From: VU WILKES LPN To: NORI HIRSCH NP; VU WILKES LPN; Cc: HALIMA DOWNS V; Sent: 03/21/2012 13:27:55 TENTMAKER Subject: Med Management On hold pending signature Order Order: diazepam (Valium 5 mg oral tablet) 1 tab(s) PO 3xDay Qty: 30 tab(s) Refills: 0 Substitutions Allowed Muscle spasm Print - [id number] On hold pending signature Order Order: oxycodone (oxycodone 5 mg oral tablet) 2 tab(s) PO q6hr Qty: 50 tab(s) Refills: 0 Substitutions Allowed pain Print - [id number] WOULD LIKE TO DATACAP DEVELOPER RX TODAY HE IS LEAVING TOWN AND PATIENT CANNOT DRIVE Source: [employer] Document Id: [id number] Electronically signed by Conversion, [facility] Obstetrician And Gynaecologist [id number] at 07/05/2016 9:05 PM CDT Miscellaneous - Conversion, Historical Provider Ser - 03/13/2012 2:39 PM TENTMAKER General Message Document Contains Addenda Addendum by NORI HIRSCH NP on 14 March 2012 07:53:06 TENTMAKER Message noted. From: LILIANE PEDERSON LPN To: NORI HIRSCH NP; Sent: 03/13/2012 14:39:14 TENTMAKER Subject: General Message FYI - I called [facility], they would not be able to see Dax until June or July. She is on a wait list. I talked with Dax today, she said her was trying to get an appt for her with [facility] [place]. They know a spine surgeon who works there. I'm having radiology do a CD of her L-spine x-rays and her MRI of L-spine for pt to picking supervisor and take to her appt.She said there is nothing more that I need to do for her now. MB Source: [employer] Document Id: [id number] Miscellaneous - Nori Hirsch, N.P. - 03/04/2012 10:05 AM CST Ambulatory Patient Summary [address] [place] [address] Visit Information Name: DAX JOHNSON [facility] Number: [id number] Current Date: 03/04/2012 10:05:16 Physicians Attending Provider: NORI HIRSCH NP Primary Care Provider: NORI HIRSCH NP Your Medications Here is a list of your medications. It is important to take your medications as directed. Use a pillbox or chart to help remind you to take your medications. Please let your doctor or nurse know if you have problems taking your medications. Medication/Strength Dose Route Frequency Indications/Special Instructions/Comments diazepam (diazepam 5 mg oral tablet) 5 mg Oral three times a day as needed for Muscle spasm oxycodone-acetaminophen (Percocet 5/325 oral tablet) 1 to 2 tablets Oral every 6 hours as needed forPain No more than 4,000mg acetaminophen/24hrs ibuprofen (ibuprofen 200 mg oral tablet) 800 [...] Appointments found Your Goals/Additional instructions: Source: [facility] POWERCHART Document Id: [id number] MAKER Miscellaneous - Nori Hirsch NDevynP. - 03/04/2012 10:05 AM CST Ambulatory Depart Summary [address] [place] [address] Visit Information Name: ELIZABETH DAXWESTLEY VALDOVINOS [facility] Number: [id number] Visit Date: 03/04/2012 10:05:15 Attending Provider: NORI HIRSCH ASSOCIATE PROFESSOR OF RADIOLOGY Primary Care Provider: NORI HIRSCH ASSOCIATE PROFESSOR OF RADIOLOGY ELIZABETH DAXWESTLEY VALDOVINOS has been given the following list of medications: Your Medications It is important to take your medications as directed. Use a pill box or chart to help remind you to take your medications. Please let your doctor or nurse know if you have problems taking your medications. Medication/Strength Dose Route Frequency Indications/Special Instructions/Comments diazepam (diazepam 5 mg oral tablet) 5 mg Oral three times a day as needed for Muscle spasm oxycodone-acetaminophen (Percocet 5/325 oral tablet) 1 to 2 tablets Oral every 6 hours as needed forPain No more than 4,000mg acetaminophen/24hrs ibuprofen (ibuprofen 200 mg oral tablet) 800 [...] provider for clarification. Additional Information: Source: [facility] POWERCHART Document Id: [id number] MAKER Miscellaneous - Nori Hirsch NDevynP. - 03/04/2012 9:25 AM CST School or Work Excuse School or Work Excuse Entered On: 03/04/2012 9:25 TENTMAKER Performed On: 03/04/2012 9:25 TENTMAKER by NORI HIRSCH NP School or Work Excuse Date Patient Seen : 03/04/2012 TENTMAKER Comment : Dax is unable to return to work at this time. NORI HIRSCH ASSOCIATE PROFESSOR OF RADIOLOGY - 03/04/2012 9:25 TENTMAKER Source: [facility] [employer] Document Id: [id number] MAKER Miscellaneous - Annmarie Ludwig L.P.N. - 03/04/2012 8:56 AM CST Adult Gas Turbine Assembler Intake/History Adult Gas Turbine Assembler Intake/History Entered On: 03/04/2012 9:02 TENTMAKER Performed On: 03/04/2012 8:56 TENTMAKER by ANNMARIE LUDWIG LPN Intake Chief Complaint : follow up and over the Mri results,needs also a work slip Temperature Core : 36.5C(Converted to: 97.7DegF) Peripheral Pulse Rate : 106/min (HI) Respiratory Rate : 20/min Heart Rhythm : Regular Systolic Blood Pressure : 128mmHg Diastolic Blood Pressure : 94mmHg (>HHI) NIBP Mean : 105mmHg BP Location : Right upper extremity Blood Pressure Cuff Size : Large SpO2 : 96% Oxygen Therapy : Room air Weight Source : Other: no wt taken ANNMARIE LUDWIG LPN - 03/04/2012 8:56 TENTMAKER Subjective Pain Symptoms : Yes ANNMARIE LUDWIG LPN - 03/04/2012 8:56 TENTMAKER Pain Pain Assessment Grid Pain 1 Location : Pelvic (Comment: and left leg [ANNMARIE LUDWIG LPN - 03/04/2012 8:56 TENTMAKER] ) Laterality : Left Intensity : 6 ANNMARIE LUDWIG [facility] - 03/04/2012 8:56 TENTMAKER Dependent Habits Tobacco Use/Currently Using : No Smoking Status : Never smoker ANNMARIE LUDWIG [facility] - 03/04/2012 8:56 TENTMAKER Tobacco Use Grid Last Use : never ANNMARIE LUDWIG [facility] 03/04/2012 8:56 TENTMAKER Alcohol Use : No MELBA LUDWIGCONCEPCION Fuller [facility] - 03/04/2012 8:56 TENTMAKER Caffeine Use Grid Caffeine Use : None MELBA LUDWIGCONCEPCION Fuller [facility] - 03/04/2012 8:56 TENTMAKER Recreational Drug Use Grid Drug Use : None ANNMARIE LUDWIG [facility] 03/04/2012 8:56 TENTMAKER Allergy Allergies (Active) codeine Estimated Onset Date: Unspecified ; Reactions: confusion ; Created By: NORI HIRSCH NP;Reaction Status: Active ; Category: Drug ; Substance: codeine ; Type: Allergy ; Updated By: NORI HIRSCH NP; Reviewed Date: 03/04/2012 8:56 TENTMAKER Source: [facility] [employer] Document Id: [id number] MAKER documented in this encounter Plan of Treatment Not on filedocumented as of this encounter Visit Diagnoses Not on filedocumented in this encounter Additional Health Concerns Assessment Noted Time PHQ-9 Depression Total Score: 7 01/01/2012 2:55 PM TENTMAKER documented as of this encounter
--- OUTSIDE RECORDS SUMMARY | 2021-12-12 09:59 | XMS_ITS | Encounter Summary ---
:1975 Author Organization [facility] Address [address] [place] [address] Care Team Providers Name Role Phone Unavailable Primary Care Provider Unavailable Encounter Details Date Type Department Care Team Description 02/27/2012 Hospital Encounter HX [facility] Wyatt Hirsch, N.P. [address] [place] [address] (Wo rk) Social History Tobacco Use Types Packs/Day Years Used Date Smoking Tobacco: Never Assessed Sex Assigned at Date Recorded Not on file documented as of this encounter Last Filed Vital Signs Vital Sign Reading Time Taken Comments Blood Pressure 122/90 02/27/2012 10:47 AM TEXTILE DESIGNS SALES REPRESENTATIVE Pulse 96 02/27/2012 10:47 AM TEXTILE DESIGNS SALES REPRESENTATIVE Temperature - - Respiratory Rate - - Oxygen Saturation - - Inhaled Oxygen Concentration - - Weight - - Height - - Body Mass Index - - documented in this encounter Progress Notes Honey Le - 02/27/2012 10:36 AM CST [id number] CHIEF COMPLAINT/REASON FOR VISIT This is a 36-year-old female following up today with low back pain with left leg radiculopathy. She has a history of some back issues. She states that she has had 3 bulging discs in the past. She chronically sees Dr. Browne and has had low back injections. However, she had an acute injury that happened about 4 days ago. She slipped on the ice while at work landed straight on her back. She ended up going to the Emergency Room yesterday and is here today for follow-up of that visit. She states that she really does not have that much pain in her back, it is located mostly down her left leg. She has pain going down the entire leg to her foot as well as some numbness and tingling feelings. It starts inher left buttock and goes down that way. She states it seems like it has gone down further in her leg today than it was yesterday when she was in the Emergency Department. It is worse in her calf today. She describes it as a constant pain shooting down her left leg. It gets worse with any sort of movement, especially walking. Seems to be a little bit better if she is able to lie in her right side. She was given a prescription for pain medications and Diazepam the ER yesterday. She states that is helping a little bit. She was also given a note to be off work through tomorrow, but does not see how she could possibly go back to work in the near future. She states that she does have physical therapy ap pointment scheduled for Sunday the . CURRENT MEDICATIONS PAST MEDICAL/SURGICAL HISTORY Reviewed in the EMR. ALLERGIES To CODEINE. VITAL SIGNS Temperature is 36.4-degrees Centigrade. Heart rate 96. Blood pressure is 122/90. PHYSICAL EXAMINATION IN GENERAL: She is alert, interactive and cooperative. Appears to be well- nourished, well hydrated, in no acute distress MUSCULOSKELETAL: On inspection of her back there is no sign of ecchymosis, swelling or deformity. She is really nontender to palpation through her lumbar spine. Tenderness to palpation starts in the sciatic distribution through her left buttock extending down her whole left leg. Please see Dr. Bray's dermatome picture here in her ER note from yesterday. She has limited range ofmotion in her back. She is able to forward flex it okay but does have significant difficulty with backward extension and side bending. She is in too much pain to attempt to toe walking or heel walking. Straight leg raise is positive on the left side, and strength and sensation is decreased on the leftleg. IMPRESSION/REPORT/PLAN Mild low back discomfort with significant left leg radiculopathy. I offered to try to get her an appointment in physical therapy sooner than Sunday. She states that she will actually call and try to get that scheduled if possible. In the meantime she will continue taking her Percocet and Diazepam. I did give her a note to be off of work through the rest of this week, give her time to rest and get into therapy. I did state that she should be able to return to work on March 04. If she is unable to do this she will need to return for reassessment and possibly consideration of returning to work with light duty. She will return for any other questions or concerns. Honey Le P.A.-C./mya Electronically Signed By: HONEY LE On: 02/29/2012 09:08 AM Source: [facility] [employer]OLBEYNON[employer]SYS Document Id: [id number] ILE DESIGNS SALES REPRESENTATIVE documented in this encounter Miscellaneous Notes Miscellaneous - Giuliano Hirsch, N.P. - 02/29/2012 1:20 PM CST refill Rxs From: GIULIANO HIRSCH LEARNING STRATEGIST To: GIULIANO HIRSCH NP; Sent: 02/29/2012 13:20:49 TEXTILE DESIGNS SALES REPRESENTATIVE Subject: refill Rxs Mirella is here for PT today. Requesting refill on pain medication and diazepam. Refills provided on diazepam and percocet. Rxs given to Mirella in PT. Recommed F/U in clinic early next week. Source: [facility] POWERCHART Document Id: [id number] Miscellaneous - Honey Le - 02/27/2012 5:08 PM CST Ambulatory Depart Summary [address] [address] Visit Information Name: MIRELLA JOHNSON [facility] Number: [id number] Visit Date: 02/27/2012 17:08:00 Attending Provider: GIULIANO HIRSCH NP Primary Care [...] medications. Medication/Strength Dose Route Frequency Indications/Special Instructions/Comments [facility] [place] Excuse) See Instructions No work [...] your provider for clarification. Additional Information: Source: [facility] POWERCHART Document Id: [id number] ILE DESIGNS SALES REPRESENTATIVE Miscellaneous - Honey Le K - 02/27/2012 5:08 PM CST Ambulatory Patient Summary [address] [address] Visit Information Name: ELIZABETH MIRELLATien VALDOVINOS [facility] Number: [id number] Current Date: 02/27/2012 17:08:01 Physicians Attending Provider: GIULIANO HIRSCH NP Primary Care Provider: GIULIANO HIRSCH LEARNING STRATEGIST Your Medications Here is a list of your medications. It is important to take your medications as directed. Use a pillbox or chart to help remind you to take your medications. Please let your doctor or nurse know if you have problems taking your medications. Medication/Strength Dose Route Frequency Indications/Special Instructions/Comments Misc Prescription (Work Excuse) See Instructions No [...] Upcoming Appointments Date Time Location Reason Provider 02/29/2012 12:45 [facility] PT/OT Back injury, work comp, Injury date, Krystal Le Your Goals/Additional instructions: Source: [facility] POWERCHART Document Id: [id number] ILE DESIGNS SALES REPRESENTATIVE Miscellaneous - Honey Le - 02/27/2012 11:27 AM CST School or Work Excuse School or Work Excuse Entered On: 02/27/2012 11:29 TEXTILE DESIGNS SALES REPRESENTATIVE Performed On: 02/27/2012 11:27 TEXTILE DESIGNS SALES REPRESENTATIVE by HONEY LE School or Work Excuse Date Patient Seen : 02/27/2012 TEXTILE DESIGNS SALES REPRESENTATIVE Date of Return to School/Work Without Restrictions : 03/04/2012 TEXTILE DESIGNS SALES REPRESENTATIVE Comment : Mirella was seen in the clinic today and will be off work until next Sunday. HONEY LE - 02/27/2012 11:27 TEXTILE DESIGNS SALES REPRESENTATIVE [facility] Document Id: [id number] ILE DESIGNS SALES REPRESENTATIVE Miscellaneous - Jessy Atkinson L.PLawrence - 02/27/2012 10:47 AM CST Adult Door Repairman Intake/History Adult Door Repairman Intake/History Entered On: 02/27/2012 10:50 TEXTILE DESIGNS SALES REPRESENTATIVE Performed On: 02/27/2012 10:47 TEXTILE DESIGNS SALES REPRESENTATIVE by JESSY ATKINSON Intake Chief Complaint : left leg pain W/C follow up ER visit 02/26/12 Temperature Core : 36.4C(Converted to: 97.5DegF) (LOW) Peripheral Pulse Rate : 96/min Heart Rhythm : Regular Systolic Blood Pressure : 122mmHg Diastolic Blood Pressure : 90mmHg (HI) NIBP Mean : 101mmHg BP Location : Right upper extremity Blood Pressure Cuff Size : Large JESSY ATKINSON - 02/27/2012 10:47 TEXTILE DESIGNS SALES REPRESENTATIVE Subjective Pain Symptoms : Yes JESSY ATKINSON - 02/27/2012 10:47 TEXTILE DESIGNS SALES REPRESENTATIVE Pain Pain Assessment Grid Pain 1 Location : Other: left leg Intensity : 8 JESSY ATKINSON - 02/27/2012 10:47 TEXTILE DESIGNS SALES REPRESENTATIVE Dependent Habits Tobacco Use/Currently Using : No Smoking Status : Never smoker JESSY ATKINSON - 02/27/2012 10:47 TEXTILE DESIGNS SALES REPRESENTATIVE Tobacco Use Grid Last Use : never JESSY ATKINSON - 02/27/2012 10:47 TEXTILE DESIGNS SALES REPRESENTATIVE Caffeine Use Grid Caffeine Use : None JESSY ATKINSON - 02/27/2012 10:47 TEXTILE DESIGNS SALES REPRESENTATIVE Recreational Drug Use Grid Drug Use : None JESSY ATKINSON - 02/27/2012 10:47 TEXTILE DESIGNS SALES REPRESENTATIVE Allergy Allergies (Active) codeine Estimated Onset Date: Unspecified ; Reactions: confusion ; Created By: GIULIANO HIRSCH NP;Reaction Status: Active ; Category: Drug ; Substance: codeine ; Type: Allergy ; Updated By: GIULIANO HIRSCH NP; Reviewed Date: 02/27/2012 10:46 TEXTILE DESIGNS SALES REPRESENTATIVE Source: [facility] [employer] Document Id: [id number] ILE DESIGNS SALES REPRESENTATIVE documented in this encounter Plan of Treatment Not on filedocumented as of this encounter Visit Diagnoses Not on filedocumented in this encounter Additional Health Concerns Assessment Noted Time PHQ-9 Depression Total Score: 7 01/01/2012 2:55 PM TEXTILE DESIGNS SALES REPRESENTATIVE documented as of this encounter
--- OUTSIDE RECORDS SUMMARY | 2021-12-12 10:00 | XMS_ITS | Encounter Summary ---
:1975 Author Organization [facility] Address [address] [place] [address] Care Team Providers Name Role Phone Unavailable Primary Care Provider Unavailable Encounter Details Date Type Department Care Team Description 04/12/2010 Hospital Encounter HX [facility] Wyatt Hirsch NDevynP. [address] [place] [phone] (Wo rk) Social History Tobacco Use Types Packs/Day Years Used Date Smoking Tobacco: Never Assessed Sex Assigned at Date Recorded Not on file documented as of this encounter Progress Notes Giuliano Hirsch, N.P. - 04/12/2010 12:00 AM CST [id number] CHIEF COMPLAINT/REASON FOR VISIT 1. Back pain. 2. Asthma. HISTORY OF PRESENT ILLNESS Mirella is a 34-year-old female who is here today with concerns about her back. She reports that she has actually had intermittent problems with her back for approximately 15 years. She denies any known or previous injury. She states that throughout the past 15 years one to several times a year she will have episodes where her back goes out. Her most recent episode started approximately six days ago and was triggered by her rolling over in her bed. She states that her episodes of back pain typically are fairly severe, first few days are very debilitating where she has significant enough pain that it alters her ability to work and do other activities. Her pain in the back will usually improve over a week's time. She has never had any radiculopathy numbness or tingling, loss of bowel or bladder control. 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 Prior to this episode her last flare of back pain was in the spring of 2009 where she saw a chiropractor for a certain amount time she is unsure of whether this helped or not. Mirella presently rates her back pain as approximately a five on a 0-10 scale. She states that it is gradually improved since the onset six days ago. She is just concerned because it seems she is having more frequent episodes of her back pain and would like some further evaluation of this. Mirella does have a history of asthma. I have asked that we go ahead and talk about her asthma today. We did fill out her ACT score which is 20. We reviewed her asthma action plan and will have a copy scanned into the EMR. We did review her triggers as well. We are coming up on the time of the year where Karinas asthma seems to have worsened so I will prescribe her a Flovent inhaler to use for her symptoms when they are getting worse. She has been on Advair in the past but is unable to afford this any more but is willing to try the Flovent to see if this will help at all. She has had no hospitalizations visits in the past related to her asthma. CURRENT MEDICATIONS 1. Reviewed. Please see EMR ALLERGIES 1. Codeine. PAST MEDICAL/SURGICAL HISTORY Past medical history 1. Panic disorder 2. Asthma. 3. Depression. 4. PTSD. VITAL SIGNS: Temperature 36.2 pulse 80, respirations 20, blood pressure 128/78 PHYSICAL EXAMINATION GENERAL Mirella is alert. She is oriented x3. She appears in no acute distress. She is obese. HEART rate is regular S1-S2 is present. There is no murmur or rub. LUNGS: Clear to auscultation. BACK is examined. She does report some bony point tenderness noted over her lower lumbar spine. The pain does radiate slightly to her left lumbar paraspinal muscles. Straight leg raise is negative bilaterally. Lower extremity strength is 5/5 and equal. Patellar reflexes are 2+ and equal dorsiflexion of toes is normal. Gait is appropriate. IMPRESSION/REPORT/PLAN 1. Low back pain with concern for disc issue. 2. Asthma. Plan 1. We will go ahead and order an MRI of Mirella's back due to the fact that her symptoms seem to worsening and occurring more frequently. I will contact her by phone with the results when they become available. 2. As stated above. We did review her asthma action plan and added Flovent to this. She is to follow up with me as needed in regards to this especially as we head into spring and this seems to be a more difficult time of the year with her asthma. 3. She can continue to use anti-inflammatories as needed for her back pain and I have also scheduled her an appointment to see orthopedics. Her questions and concerns have been addressed and she is agreeable to this plan of care. #1 Patient Education Ready to learn No apparent learning barriers were identified Learning preferences include listening Explained diagnosis and treatment plan Patient expressed understanding of the content Giuliano Hirsch N.P. /jose Electronically Signed By: GIULIANO HIRSCH NP On: 04/15/2010 08:27 Source: [facility] MHSDOLBEYNONRADSYS Document Id: [id number] AL SERVICE MAIL PROCESSOR documented in this encounter Miscellaneous Notes Miscellaneous - Giuliano Hirsch N.P. - 04/12/2010 3:43 PM CST Ambulatory Patient Summary [facility] - [address] [address] Visit Information Name: MIRELLA JHONSON Current Date: 04/12/2010 15:43:22 Primary Care Provider: GIULIANO HIRSCH NP Your Medications Here is a list of your medications. It is important to take your medications as directed. Use a pillbox or chart to help remind you to take your medications. Please let your doctor or nurse know if you have problems taking your medications. Medication/Strength Dose Route Frequency Indications/Special Instructions/Comments fluticasone (Flovent HFA 44 mcg/inh) 2 puff(s) Inhalation two times a day venlafaxine (Effexor) 75 mg Oral 2 tabs in am and 3 tabs in pm levonorgestrel (Mirena) albuterol (albuterol) 2 puff(s) Inhalation Your Allergies & Intolerances Substance Reaction Symptoms Category Comments codeine Drug Your Problem List Problem Status Onset Comments Asthma, Unspecified Active Agoraphobia with Panic Disorder Active Post-traumatic stress disorder (PTSD) Active Depression Active Your Recommendations We want to make sure you get the tests, immunizations, and guidance you need to stay healthy. Here is a customized list of recommendations, based on information we have in your medical record. Your doctor may have additional recommendations for you, based on your personal medical history and risk factors. You can help us by calling us to make an appointment when you are due for your tests. Additional information regarding recommendations: Test/Treatment Last Done Next Due Additional Information Asthma Control Test every 1 year 04/12/2010 Asthma Action Plan every 1 year 04/12/2010 Depression: PHQ-9 every 6 months 04/12/2010 Screening Pap Smear every 3 years Women 21-65 04/12/2010 Checks for signs of cancer of the cervix. Lipid Panel every 5 years Age 20-75 04/12/2010 Checks blood for good (HDL) and bad (LDL) cholesterol. Know your numbers, they are one indicator of your risk for heart attack and stroke. Vaccine: Flu every 1 year 01/26/2009 01/26/2010 Immunization to help prevent you from getting the flu strain expected to be a problem for that year's flu season. Vaccine: Tetanus every 10 years 04/11/2006 04/08/2016 Immunization to help prevent you from getting the serious disease Tetanus (Lockjaw). Your Upcoming Appointments Date Time Location Reason Provider No Appointments found Your Goals/Additional instructions: Source: [facility] POWERCHART Document Id: [id number] Electronically signed by Deana [facility] Director Information [id number] at 07/09/2016 6:38 PM CDT Miscellaneous - Giuliano Hirsch, N.P. - 04/12/2010 3:43 PM CST Ambulatory Depart Summary [facility] - [address] [address] Visit Information Name: MIRELLA JOHNSON Current Date: 04/12/2010 15:43:22 Primary Care Provider: GIULIANO HIRSCH ENGINEERING SECRETARY MIRELLA JOHNSON has been given the following list of medications: Your Medications It is important to take your medications as directed. Use a pill box or chart to help remind you to take your medications. Please let your doctor or nurse know if you have problems taking your medications. Medication/Strength Dose Route Frequency Indications/Special Instructions/Comments fluticasone (Flovent HFA 44 mcg/inh) 2 puff(s) Inhalation two times a day venlafaxine (Effexor) 75 mg Oral 2 tabs in am and 3 tabs in pm levonorgestrel (Mirena) albuterol (albuterol) 2 puff(s) Inhalation Additional Information: Yes - Current list of reconciled medications is provided and explained to the patient and/or family, guardian/caregiver. Source: [facility] Docphin Document Id: [id number] Miscellaneous - Annmarie Ludwig, L.P.N. - 04/12/2010 3:06 PM CST Health Assessment Health Assessment Entered On: 04/12/2010 15:07 POSTAL SERVICE MAIL PROCESSOR Performed On: 04/12/2010 15:06 POSTAL SERVICE MAIL PROCESSOR by ANNMARIE LUDWIG LPN Nutrition Nutrition Risk Factors by History Adult: None ANNMARIE LUDWIG LPN - 04/12/2010 15:06 POSTAL SERVICE MAIL PROCESSOR Functional Current Daily Living Assistance: None ANNMARIE LUDWIG LPN - 04/12/2010 15:06 POSTAL SERVICE MAIL PROCESSOR Dependent Habits Tobacco Use/Currently Using: No ANNMARIE LUDWIG LPN - 04/12/2010 15:06 POSTAL SERVICE MAIL PROCESSOR Psychosocial Domestic Concerns: None ANNMARIE LUDWIG LPN - 04/12/2010 15:06 POSTAL SERVICE MAIL PROCESSOR Advance Directive Advanced Directives: No ANNMARIE LUDWIG LPN - 04/12/2010 15:06 POSTAL SERVICE MAIL PROCESSOR Educ Needs Learning Style Preference Adult Grid Patient: Demonstration, Verbal explanation Family: Demonstration, Verbal explanation ANNMARIE LUDWIG LPN - 04/12/2010 15:06 POSTAL SERVICE MAIL PROCESSOR Source: [facility] Docphin Document Id: [id number] POSTAL SERVICE MAIL PROCESSOR!15 AL SERVICE MAIL PROCESSOR Miscellaneous - Annmarie Ludwig L.P.N. - 04/12/2010 3:00 PM CST Adult Lurer Intake/History Adult Lurer Intake/History Entered On: 04/12/2010 15:05 POSTAL SERVICE MAIL PROCESSOR Performed On: 04/12/2010 15:00 POSTAL SERVICE MAIL PROCESSOR by ANNMARIE LUDWIG LPN Intake Chief Complaint: back pain Onset of Symptoms: am april 07 Temperature Core: 36.2C(Converted to: 97.2DegF) (LOW) Peripheral Pulse Rate: 80/min Respiratory Rate: 20/min Systolic Blood Pressure: 128mmHg Diastolic Blood Pressure: 78mmHg NIBP Mean: 95mmHg BP Location: Right upper extremity Heart Rhythm: Regular Height: 161.00cm(Converted to: 5ft 3in, 63.39in) Actual Weight: 121.100kg(Converted to: 267lb 0oz) Weight Source: Standing scale Dosing Weight Clinic: 121.10kg Clinic BSA: 2.33 Body Mass Index: 47kg/m2 ANNMARIE LUDWIG LPN - 04/12/2010 15:00 POSTAL SERVICE MAIL PROCESSOR Subjective Pain Symptoms: Yes ANNMARIE LUDWIG LPN - 04/12/2010 15:00 POSTAL SERVICE MAIL PROCESSOR Pain Pain Assessment Grid Pain 1 Location: Lower back Intensity: 5 ANNMARIE LUDWIG LPN - 04/12/2010 15:00 POSTAL SERVICE MAIL PROCESSOR Dependent Habits Tobacco Use/Currently Using: No Alcohol Use: No ANNMARIE LUDWIG LPN - 04/12/2010 15:00 POSTAL SERVICE MAIL PROCESSOR Allergies Allergies (Active) codeine Estimated Onset Date: Unspecified ; Created By: ANNMARIE LUDWIG LPN; Reaction Status: Active ; Category: Drug ; Substance: codeine ; Type: Allergy ; Updated By: ANNMARIE LUDWIG LPN; Reviewed Date: 04/12/2010 14:58 POSTAL SERVICE MAIL PROCESSOR [facility] Document Id: [id number] POSTAL SERVICE MAIL PROCESSOR!28 AL SERVICE MAIL PROCESSOR Miscellaneous - Giuliano Hirsch NDevynPDevyn - 04/12/2010 7:57 AM CST Quality Measures Quality Measures Entered On: 04/13/2010 7:57 POSTAL SERVICE MAIL PROCESSOR Performed On: 04/12/2010 7:57 POSTAL SERVICE MAIL PROCESSOR by GIULIANO HIRSCH NP Asthma Asthma Control Test (ACT) Score: 20 ED visits past yr for asthma w/o hospital stay: 0 Hospitalizations/Overnight Stays in Past yr for Asthma: 0 Asthma Action Plan Provided/Reviewed: Provided to the patient Asthma Action Plan Copy: Scanned into EMR GIULIANO HIRSCH ENGINEERING SECRETARY - 04/13/2010 7:57 POSTAL SERVICE MAIL PROCESSOR Source: [facility] POWERCHART Document Id: [id number] POSTAL SERVICE MAIL PROCESSOR!7 AL SERVICE MAIL PROCESSOR documented in this encounter Plan of Treatment Not on filedocumented as of this encounter Visit Diagnoses Not on filedocumented in this encounter
--- OUTSIDE RECORDS SUMMARY | 2021-12-12 10:00 | XMS_ITS | Encounter Summary ---
:1975 Author Organization [facility] Address [address] [place] [address] Care Team Providers Name Role Phone Unavailable Primary Care Provider Unavailable Encounter Details Date Type Department Care Team Description 12/14/2009 Hospital Encounter [facility]X [facility] IN[facility]OBS[facility] Ignacia Hirsch, N.P. [address] [place] [phone] (Wo rk) Social History Tobacco Use Types Packs/Day Years Used Date Smoking Tobacco: Never Assessed Sex Assigned at Date Recorded Not on file documented as of this encounter Plan of Treatment Not on filedocumented as of this encounter Visit Diagnoses Not on filedocumented in this encounter
--- OUTSIDE RECORDS SUMMARY | 2021-12-12 10:00 | XMS_ITS | Encounter Summary ---
:1975 Author Organization [facility] Address [address] [place] [address] Care Team Providers Name Role Phone Unavailable Primary Care Provider Unavailable Encounter Details Date Type Department Care Team Description 02/04/2004 Hospital [facility] Ra jesse Caicedo, P.A.-C. [address] [place] [address] (Wo rk) Social History Tobacco Use Types Packs/Day Years Used Date Smoking Tobacco: Never Assessed Sex Assigned at Date Recorded Not on file documented as of this encounter Miscellaneous Notes Telephone Encounter - Conversion, Historical Provider Ser - 02/04/2004 12:00 AM CST [id number] >> EMELYATIYA MAE Mila Feb 04, 2004 9:12 AM She is out of Lexapro and doesn't do very well with out.Said you usually give her samples. [facility] Document Id: [id number] documented in this encounter Plan of Treatment Not on filedocumented as of this encounter Visit Diagnoses Not on filedocumented in this encounter
--- OUTSIDE RECORDS SUMMARY | 2021-12-12 10:00 | XMS_ITS | Encounter Summary ---
:1975 Author Organization [facility] Address [address] [place] [address] Care Team Providers Name Role Phone Unavailable Primary Care Provider Unavailable Encounter Details Date Type Department Care Team Description 01/28/2004 Hospital [facility] jesse Caicedo, P.A.-C. [address] [place] [address] (Wo rk) Social History Tobacco Use Types Packs/Day Years Used Date Smoking Tobacco: Never Assessed Sex Assigned at Date Recorded Not on file documented as of this encounter Miscellaneous Notes Telephone Encounter - Conversion, Historical Provider Ser - 01/28/2004 12:00 AM CST [id number] Addended by: MAXINE CAICEDO on: 02/02/2004 10:47:08 AM Comment: This patient needs appointment Addended by: SUZI DAVIDSON on: 02/02/2004 9:29:39 AM Comment: LEft message on machine to return phone call. Addended by: MELIA RICCI on: 02/02/2004 8:36:56 AM Comment: call back >> MAXINE CAICEDO SunJan 28, 2004 2:43 PM She has not been seen for at least 1 year and needs to be seen in clinic to discuss this. >> MELIA RICCI SunJan 28, 2004 10:17 AM Encounter initiated. PLease call and tell pt. that appt. needs to be made. Source: [facility] Document Id: [id number] documented in this encounter Plan of Treatment Not on filedocumented as of this encounter Visit Diagnoses Not on filedocumented in this encounter
--- OUTSIDE RECORDS SUMMARY | 2021-12-12 10:00 | XMS_ITS | Encounter Summary ---
:1975 Author Organization [facility] Address [address] [place] [address] Care Team Providers Name Role Phone Unavailable Primary Care Provider Unavailable Encounter Details Date Type Department Care Team Description 08/25/2008 Hospital Encounter [facility]X [facility] INPT/OBSRV Nia Ball M.D. [address] [place], [place] [address] (Wo rk) Social History Tobacco Use Types Packs/Day Years Used Date Smoking Tobacco: Never Assessed Sex Assigned at Date Recorded Not on file documented as of this encounter Plan of Treatment Not on filedocumented as of this encounter Visit Diagnoses Not on filedocumented in this encounter
--- OUTSIDE RECORDS SUMMARY | 2021-12-12 10:00 | XMS_ITS | Encounter Summary ---
:1975 Author Organization [facility] Address [address] [place] [address] Care Team Providers Name Role Phone Unavailable Primary Care Provider Unavailable Encounter Details Date Type Department Care Team Description 05/03/2010 Hospital Encounter HX NO MAPPING Vlad Browne M.D. [address] [place], [place] [phone] (Wo rk) Social History Tobacco Use Types Packs/Day Years Used Date Smoking Tobacco: Never Assessed Sex Assigned at Date Recorded Not on file documented as of this encounter Consult Notes Ismael Browne M.D. - 05/03/2010 12:00 AM CDT [id number] IMPRESSION/REPORT/PLAN Mirella is a 34-year-old woman who is dealing with significant disc degeneration at three levels as well as disc bulges. My suggestion is to start with conservative measures such as antiinflammatories as well as a physical therapy program. We will start her out on diclofenac to take once a day with food probably during breakfast. We will also her work with physical therapy to work on abdominal and back strengthening exercises. I will plan to see her back in approximately six weeks to see if she has made any substantial improvement in regards to her symptoms. The patient's visit today was greater than 25 minutes long with more than 50% of it in counseling in regards to treatment options for her lumbar spine pain. CHIEF COMPLAINT/REASON FOR VISIT Mirella is a 34-year-old woman who is regards to her back. HISTORY OF PRESENT ILLNESS She has had ongoing troubles with her back for a very long period of time. She had no specific injury to it but this gave her pain dating back even into the teenage years. Recent MRI had been obtained and she had tried treating this with antiinflammatories such as ibuprofen on an as needed basis but otherwise had really very little in regards to treatment. PHYSICAL EXAM On examination of her lower extremities, her deep tendon reflexes are symmetric and straight leg raise is negative bilaterally. She has pain in the paraspinous regions of her lower lumbar spine around L5-S1 and L4-L5. RADIOGRAPHS: X-rays of her back previously obtained are reviewed which demonstrate some early degenerative changes in her lower lumbar spine, but no dramatic findings are seen. MRI of her lumbar spine recently obtained demonstrates disc degeneration at L3-L4, L4- L5, and L5-S2. There is also some disc bulging at these levels as well. Ismael Browne M.D. / Electronically Signed By: ISMAEL BROWNE MD On: 05/13/2010 01:01 Source: [facility] MHSDOLBEYNONRADSYS Document Id: [id number] documented in this encounter Miscellaneous Notes Miscellaneous - Carly Aquino RLibby. - 05/03/2010 11:06 AM CDT Adult Manager Desktop Intake/History Adult Manager Desktop Intake/History Entered On: 05/03/2010 11:14 CDT Performed On: 05/03/2010 11:06 CDT by CARLY AQUINO warehouse operator Chief Complaint: low back pain -- had MRI Temperature Oral: 37.2C(Converted to: 99.0DegF) Peripheral Pulse Rate: 72/min Respiratory Rate: 16/min Systolic Blood Pressure: 128mmHg Diastolic Blood Pressure: 88mmHg NIBP Mean: 101mmHg BP Location: Right upper extremity Heart Rhythm: Regular CARLY AQUINO RN - 05/03/2010 11:06 CDT Subjective Pain Symptoms: Yes CARLY AQUINO RN - 05/03/2010 11:06 CDT Pain Pain Assessment Grid Pain 1 Location: Lower back Laterality: Bilateral Time Pattern: Chronic, Intermittent Onset: Sudden Quality: Aching, Cramping, Heavy, Radiating, Throbbing, Tightness Pain Radiation: Yes Aggravating Factors: Movement Alleviating Factors: None Associated Symptoms: Nausea, Shortness of breath, Sweating Interventions: Rest CARLY AQUINO RN - 05/03/2010 11:06 CDT Effects of Pain Grid Appetite: Moderate Concentration: Moderate Daily Life: Severe Emotions: Moderate Relationships: None Sleep: Severe Work/School: Severe CARLY AQUINO RN - 05/03/2010 11:06 CDT Dependent Habits Tobacco Use/Currently Using: No Alcohol Use: No CARLY AQUINO RN - 05/03/2010 11:06 CDT Caffeine Use Grid Caffeine Use: None CARLY AQUINO RN - 05/03/2010 11:06 CDT Allergies Allergies (Active) codeine Estimated Onset Date: Unspecified ; Created By: EDY JUSTICE LPN; Reaction Status: Active ; Category: Drug ; Substance: codeine ; Type: Allergy ; Updated By: EDY JUSTICE LPN; Reviewed Date: 05/03/2010 11:05 CDT Source: [employer] Document Id: [id number]!40 documented in this encounter Plan of Treatment Not on filedocumented as of this encounter Visit Diagnoses Not on filedocumented in this encounter
--- OUTSIDE RECORDS SUMMARY | 2021-12-12 10:00 | XMS_ITS | Encounter Summary ---
:1975 Author Organization [facility] Address [address] [place] [address] Care Team Providers Name Role Phone Unavailable Primary Care Provider Unavailable Encounter Details Date Type Department Care Team Description 10/20/2008 Hospital Encounter [facility] INPT/OBSRV Nia Ball M.D. [address] [place], [place] [address] (Wo rk) Social History Tobacco Use Types Packs/Day Years Used Date Smoking Tobacco: Never Assessed Sex Assigned at Date Recorded Not on file documented as of this encounter Plan of Treatment Not on filedocumented as of this encounter Visit Diagnoses Not on filedocumented in this encounter
--- OUTSIDE RECORDS SUMMARY | 2021-12-12 10:00 | XMS_ITS | Encounter Summary ---
:1975 Author Organization [facility] Address [address] [place] [address] Care Team Providers Name Role Phone Unavailable Primary Care Provider Unavailable Encounter Details Date Type Department Care Team Description 10/28/2007 Hospital Encounter [facility] INPT/OBSRV Sandhya Park M.D. Social History Tobacco Use Types Packs/Day Years Used Date Smoking Tobacco: Never Assessed Sex Assigned at Date Recorded Not on file documented as of this encounter Plan of Treatment Not on filedocumented as of this encounter Visit Diagnoses Not on filedocumented in this encounter
--- OUTSIDE RECORDS SUMMARY | 2021-12-12 10:00 | XMS_ITS | Encounter Summary ---
:1975 Author Organization [facility] Address [address] [place] [address] Care Team Providers Name Role Phone Unavailable Primary Care Provider Unavailable Encounter Details Date Type Department Care Team Description 08/24/2008 [facility] IN[facility]BS[facility] Nia Ball M.D. [address] [place], [place] [address] (Wo rk) Social History Tobacco Use Types Packs/Day Years Used Date Smoking Tobacco: Never Assessed Sex Assigned at Date Recorded Not on file documented as of this encounter Plan of Treatment Not on filedocumented as of this encounter Visit Diagnoses Not on filedocumented in this encounter
--- OUTSIDE RECORDS SUMMARY | 2021-12-12 10:00 | XMS_ITS | Encounter Summary ---
:1975 [address] [facility] Address [address] [place] [address] Care Team Providers Name Role Phone Unavailable Primary Care Provider Unavailable Encounter Details Date Type Department Care Team Description 07/01/2010 Hospital Encounter HX NO MAPPING Vlad Browne M.D. [address], [place] [phone] (Wo rk) Social History Tobacco Use Types Packs/Day Years Used Date Smoking Tobacco: Never Assessed Sex Assigned at Date Recorded Not on file documented as of this encounter Consult Notes Ismael Browne M.D. 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 At this point in time, she is having significant radiculopathy. My suggestion would be to try an epidural injection and see if that makes substantial improvement in her symptoms. If it does not, we could further evaluate with a new MRI. PROCEDURE: patient was taken to the procedure room and back was prepped and draped in a sterile fashion. Under fluoroscopic guidance, a needle was placed in the epidural space at L5-S1. An injection of 1 cc of 80 mg methylprednisolone and lidocaine were placed. Patient tolerated the procedure well. Will plan to see her back if things do not improve. Total time: greater than 15 minutes with more than 50% of this in counseling in regards to treatment options for her lumbar spine. HISTORY OF PRESENT ILLNESS This 34-year-old woman is here in regards to her back. She has been having some trouble with back pain. We have tried treatment of this with diclofenac as well as physical therapy. She did make substantial improvement but this past Sunday had the onset of severe pain in the back and slightly going up the left side and very low in the lumbar spine. PHYSICAL EXAMINATION EXTREMITIES: on examination of the lower extremities, DTRs are symmetric. Straight leg raise is positive bilaterally. Strength is 5/5 in all major muscle groups. IMAGING: old MRI of her lumbar spine is reviewed which demonstrates disk degeneration in her 3 lowest lumbar levels and L5-S1 appears to have the most substantial stenosis on the left side. Ismael Browne M.D. / Electronically Signed By: ISMAEL BROWNE MD On: 07/26/2010 05:11 PM Source: [facility] MHSDOLBEYNONRADSYS Document Id: [id number] documented in this encounter Miscellaneous Notes Miscellaneous - Carly Aquino, R.N. - 07/01/2010 8:09 AM CDT Adult Nut Grinder Intake/History Adult Nut Grinder Intake/History Entered On: 07/01/2010 8:13 CDT Performed On: 07/01/2010 8:09 CDT by CARLY AQUINO winter sports manager Chief Complaint: f/u low back pain which continues to get worse Temperature Oral: 37.2C(Converted to: 99.0DegF) Peripheral Pulse Rate: 88/min Respiratory Rate: 18/min Systolic Blood Pressure: 138mmHg Diastolic Blood Pressure: 98mmHg (>HHI) NIBP Mean: 111mmHg BP Location: Left upper extremity Heart Rhythm: Regular CARLY AQUINO RN - 07/01/2010 8:09 CDT Subjective Pain Symptoms: Yes CARLY AQUINO RN - 07/01/2010 8:09 CDT Pain Pain Assessment Grid Pain 1 Location: Lower back Laterality: Left Time Pattern: Chronic, Intermittent Onset: Gradual Quality: Aching Pain Radiation: No Aggravating Factors: Movement Alleviating Factors: Repositioning, Rest CARLY AQUINO RN - 07/01/2010 8:09 CDT Dependent Habits Tobacco Use/Currently Using: No Alcohol Use: No CARLY AQUINO RN - 07/01/2010 8:09 CDT Caffeine Use Grid Caffeine Use: None CARLY AQUINO RN - 07/01/2010 8:09 CDT Allergy Allergies (Active) codeine Estimated Onset Date: Unspecified ; Created By: EDY JUSTICE LPN; Reaction Status: Active ; Category: Drug ; Substance: codeine ; Type: Allergy ; Updated By: EDY JUSTICE LPN; Reviewed Date: 07/01/2010 8:08 CDT Source: [employer] Document Id: [id number] documented in this encounter Plan of Treatment Not on filedocumented as of this encounter Visit Diagnoses Not on filedocumented in this encounter
--- OUTSIDE RECORDS SUMMARY | 2021-12-12 10:00 | XMS_ITS | Encounter Summary ---
:1975 Author Organization [facility] Address [address] [place] [address] Care Team Providers Name Role Phone Unavailable Primary Care Provider Unavailable Encounter Details Date Type Department Care Team Description 02/10/2011 Hospital Encounter HX [facility] Wyatt Hirsch, [address] [place] [phone] (Wo rk) Social History Tobacco Use Types Packs/Day Years Used Date Smoking Tobacco: Never Assessed Sex Assigned at Date Recorded Not on file documented as of this encounter Plan of Treatment Not on filedocumented as of this encounter Visit Diagnoses Not on filedocumented in this encounter
--- OUTSIDE RECORDS SUMMARY | 2021-12-12 10:00 | XMS_ITS | Encounter Summary ---
:1975 Author Organization [facility] Address [address] [place] [address] Care Team Providers Name Role Phone Unavailable Primary Care Provider Unavailable Encounter Details Date Type Department Care Team Description 01/25/2004 Hospital Encounter HX [facility] Provider, Jason caputo Social History Tobacco Use Types Packs/Day Years Used Date Smoking Tobacco: Never Assessed Sex Assigned at Date Recorded Not on file documented as of this encounter Miscellaneous Notes Telephone Encounter - Conversion, Historical Provider Ser - 01/25/2004 12:00 AM CST [id number] >> ADALBERTO HILL Mon Jan 25, 2004 3:05 PM Unable to approve medication per the RN refill protocol due to: - No recent office visit. Last visit in August of 2002.with Dr Diggs Her PCP comes up Dr Smith ?? >> MADONNA HUTSON Mon Jan 25, 2004 2:25 PM Accepting this Rx will FAX it directly to the pharmacy. [facility] Document Id: [id number] documented in this encounter Plan of Treatment Not on filedocumented as of this encounter Visit Diagnoses Not on filedocumented in this encounter
--- OUTSIDE RECORDS SUMMARY | 2021-12-12 10:00 | XMS_ITS | Encounter Summary ---
:1975 Author Organization [facility] Address [address] [place] [address] Care Team Providers Name Role Phone Unavailable Primary Care Provider Unavailable Encounter Details Date Type Department Care Team Description 05/08/2008 Hospital Encounter HX [facility] IN[facility]/OBS[facility] Nia Ball M.D. [address] [place], [place] [address] (Wo rk) Social History Tobacco Use Types Packs/Day Years Used Date Smoking Tobacco: Never Assessed Sex Assigned at Date Recorded Not on file documented as of this encounter Plan of Treatment Not on filedocumented as of this encounter Visit Diagnoses Not on filedocumented in this encounter
--- OUTSIDE RECORDS SUMMARY | 2021-12-12 10:00 | XMS_ITS | Encounter Summary ---
:1975 Author Organization [facility] Address [address] [place] [address] Care Team Providers Name Role Phone Unavailable Primary Care Provider Unavailable Encounter Details Date Type Department Care Team Description 01/14/2004 Hospital Encounter HX [facility] Provider, Jason caputo Social History Tobacco Use Types Packs/Day Years Used Date Smoking Tobacco: Never Assessed Sex Assigned at Date Recorded Not on file documented as of this encounter Miscellaneous Notes Telephone Encounter - Conversion, Historical Provider Ser - 01/14/2004 12:00 AM CST [id number] >> MAINOR GAYTAN Mila Jan 14, 2004 1:47 PM PT CALLED FOR SAMPLES OF LEXAPRO 10 MG, WE HAVE 2 WEEKS WORTH THAT THE PT;Andi AG WILL CRM DYNAMICS DEVELOPER TOD AY. SHE MAY WANT TO INCREASE HER DOSE, SHE WILL CALL BACK NEXT WEEK SAMPLES TO THE CHIEF MAINTENANCE SUPERVISOR Source[facility] Document Id: [id number] documented in this encounter Plan of Treatment Not on filedocumented as of this encounter Visit Diagnoses Not on filedocumented in this encounter
--- OUTSIDE RECORDS SUMMARY | 2021-12-12 10:00 | XMS_ITS | Encounter Summary ---
:1975 Author Organization [facility] Address [address] [place] [address] Care Team Providers Name Role Phone Unavailable Primary Care Provider Unavailable Encounter Details Date Type Department Care Team Description 11/12/2003 Hospital Encounter HX [facility] Ra jesse Light, P.A.-C. [address] [place] [phone] (Wo rk) Social History Tobacco Use Types Packs/Day Years Used Date Smoking Tobacco: Never Assessed Sex Assigned at Date Recorded Not on file documented as of this encounter Miscellaneous Notes Telephone Encounter - Conversion, Historical Provider Ser - 11/12/2003 12:00 AM CDT [id number] >> MAXINE ORDOÑEZ [facility] Nov 12, 2003 2:00 PM Ya know, I don't see any prescribing physician other than a refill I did back in September. I think lily ireland should be seen in clinic by a PCP to better monitor this prescription and I would decline sampling her at this time until she comes to clinic. >> LAILA BENITEZ [facility] Nov 12, 2003 9:52 AM Patient calls requesting samples of lexapro, which she states she has been waiting for a long time. We have 7 weeks worth of samples available at this time. OK with you? Source: [facility] Document Id: [id number] documented in this encounter Plan of Treatment Not on filedocumented as of this encounter Visit Diagnoses Not on filedocumented in this encounter
--- OUTSIDE RECORDS SUMMARY | 2021-12-12 10:00 | XMS_ITS | Encounter Summary ---
:1975 Author Organization [facility] Address [address] [place] [address] Care Team Providers Name Role Phone Unavailable Primary Care Provider Unavailable Encounter Details Date Type Department Care Team Description 02/10/2011 Hospital Encounter HX [facility] Wyatt Hirsch N.P. [address] [place] [address] [phone] (Wo rk) Social History Tobacco Use Types Packs/Day Years Used Date Smoking Tobacco: Never Assessed Sex Assigned at Date Recorded Not on file documented as of this encounter Last Filed Vital Signs Vital Sign Reading Time Taken Comments Blood Pressure 128/80 02/10/2011 8:09 AM OVEN DAUBER Pulse - - Temperature - - Respiratory Rate - - Oxygen Saturation - - Inhaled Oxygen Concentration - - Weight - - Height - - Body Mass Index - - documented in this encounter Progress Notes Nori Hirsch N.P. - 02/21/2011 10:08 AM CST results/RLS PC to Dax to discuss lab results. No correctable cause of RLS identified. Will go ahead and treatwith requip 0.25mg 1-3 hours before bedtime. Instructed on how to increase dose. F/U in 1 month. Electronically Signed By: NORI HIRSCH VICE PRESIDENT SALES On: 02/21/2011 10:10 AM Source: [facility] POWERCHART Document Id: [id number] DAUBER Nori Hirsch N.P. - 02/10/2011 12:00 AM CST [id number] CHIEF COMPLAINT/REASON FOR VISIT 1) Sore throat, fatigue, cough. 2) Restless leg syndrome. HISTORY OF PRESENT ILLNESS Dax is 35-year-old female who is here today with concerns about not feeling well for the past two weeks. She states initially she had what she thought was the stomach flu and eventually evolved into upper respiratory symptoms including sinus congestion, sore throat, ear pain and a cough. Dax states that she has not had any nausea or vomiting for the past week but that her cold symptoms really have intensified over the last seven days. She denies having any fever. She has felt very tired. Both of her children have been sick but seem to be getting over what ever it is the house has had. Dax states she has not been wheezing, her for cough has been mildly productive. Dax is also concerned about a longstanding history of restless leg syndrome. She reports that she has had restless leg for long as she can remember even dating back to high school. She has never really had any treatment for this but does report it has been getting worse over the past several months. She states it is difficult for her rest because she feels like she has a constant urge to move her legs. She is wondering what her options for treatment could be. She denies any numbness or tingling. No back injury. CURRENT MEDICATIONS Medications reviewed. NEW MEDICATIONS TODAY Include: 1) A Z-Roc, to use as directed. ALLERGIES 1) CODEINE. PAST MEDICAL HISTORY Is reviewed. No change. Please see EMR. VITAL SIGNS Temperature: 36.6-degrees Centigrade. Blood pressure: 120/80. PHYSICAL EXAMINATION IN GENERAL: Dax is alert, oriented x3. She appears somewhat ill. HEENT: Head is normocephalic, atraumatic. Right TM is slightly cloudy. No erythema is noted. Left TM is shiny, ardon and intact. No erythema or effusion present. Nasal mucosa is swollen. She denies any sinus tenderness to palpation. Oropharynx is moderately erythematous, worse on the right when compared to left. No tonsillar exudate or swelling. NECK: Is supple. Bilateral anterior cervical lymphadenopathy is appreciated. HEART: Heart rate is regular. S1, S2 is present. No murmur or rub. LUNGS: Clear but slightly diminished in the bases. DIAGNOSTICS 1. Rapid Strep is negative. 2. CBC, BMP, B-12, magnesium level and Ferritin and Folate levels are pending at time of dictation. IMPRESSION/REPORT/PLAN IMPRESSION 1. URI. 2. Restless leg syndrome. PLAN 1. In regards to Karinas URI symptoms we discussed that most likely it is a virus that is causing her symptoms. Dax is concerned about the length of her symptoms, requesting antibiotic treatment. I did go ahead prescribe her a Z-Roc to use as directed. I did talk with her that if it is a viral illness that she is suffering from that the antibiotic will not make any significant improvement in her symptoms. She is aware of this. I have encouraged her increase her fluids and get some rest. Work note was written excusing her from work today. 2. Lab work is pending to rule out any possible correctable causes of Dax's restless legs. When these results are available I will contact her by phone and we will determine further plan of care at that point time. In the meantime, I discussed with Dax that she could try some tonic water for before bed. Education handout was provided on restless legs from [employer]. Dax's questions have been addressed. We will follow up by phone regarding her lab results. PATIENT EDU #1 Patient Education Ready to learn No apparent learning barriers were identified Learning preferences include listening Explained diagnosis and treatment plan Patient/Child/Caregiver expressed understanding of the content. Nori Hirsch N.P. /mya Electronically Signed By: NORI HIRSCH VICE PRESIDENT SALES On: 02/20/2011 01:17 PM Source: [facility] MHSDOLBEYNONRADSYS Document Id: [id number] DAUBER documented in this encounter Miscellaneous Notes Miscellaneous - Nori Hirsch NGenevieve - 02/10/2011 8:38 AM CST Ambulatory Patient Summary [address] [address] Visit Information Name: DAX JOHNSON Current Date: 02/10/2011 08:38:17 Primary Care Provider: NORI HIRSCH NP Your Medications Here is a list of your medications. It is important to take your medications as directed. Use a pillbox or chart to help remind you to take your medications. Please let your doctor or nurse know if you have problems taking your medications. Medication/Strength Dose Route Frequency Indications/Special Instructions/Comments azithromycin (Zithromax Z-Roc 250 mg oral tablet) 2 tablets on day 1, then 1 tablet on days 2-5 Oralas directed for 5 Days diclofenac (diclofenac sodium 100 mg oral tablet, extended release) 100 mg Oral once a day venlafaxine (venlafaxine 75 mg oral tablet) 2 tablets in the morning and 3 tablets at bedtime Oral as directed levonorgestrel (Mirena) albuterol (albuterol) 2 puff(s) Inhalation Your Allergies & Intolerances Substance Reaction Symptoms Category Comments codeine Drug Your Problem List Problem Status Onset Comments Asthma, Unspecified Active no known date of onset Agoraphobia with Panic Disorder Active noknown date of onset Post-traumatic stress disorder (PTSD) Active 02/05/1994 Dysthymic Disorder Active 1995 Sore Throat Acute Active Your Recommendations We want to make [...] Asthma Control Test every 1 year 04/12/2010 04/12/2011 Asthma Action Plan every 1 year 04/12/2010 04/12/2011 Depression: PHQ-9 every 6 months 10/03/2010 04/04/2011 Health Assessment every 1 year 02/10/2011 02/10/2012 Screening Pap Smear every 3 years Women 21-65 02/10/2011 Checks for signs of cancer of the cervix. Lipid Panel every 5 years Age 20-75 02/10/2011 Checks blood for good (HDL) and bad (LDL) cholesterol. Know your numbers, they are one indicator of your risk for heart attack and stroke. Vaccine: Flu every 1 year 12/20/2010 12/20/2011 Immunization to help prevent you from getting the flu strain expected to be a problem for that year's flu season. Vaccine: Tetanus every 10 years 04/11/2006 04/08/2016 Immunization to help prevent you from getting the serious disease Tetanus (Lockjaw). Your Upcoming Appointments Date Time Location Reason Provider No Appointments found Your Goals/Additional instructions: Source: [facility] Incap Document Id: [id number] DAUBER Miscellaneous - Nori Hirsch N.P. - 02/10/2011 8:38 AM CST Ambulatory Depart Summary [address] [id number] Visit Information Name: DAX JOHNSON Current Date: 02/10/2011 08:38:16 Physicians Attending Physician: NORI HIRSCH VICE PRESIDENT SALES Primary Care Provider: NORI HIRSCH VICE PRESIDENT SALES DAX JOHNSON has been given the following list of medications: Your Medications It is important to take your medications as directed. Use a pill box or chart to help remind you to take your medications. Please let your doctor or nurse know if you have problems taking your medications. Medication/Strength Dose Route Frequency Indications/Special Instructions/Comments azithromycin (Zithromax Z-Roc 250 mg oral tablet) 2 tablets on day 1, then 1 tablet on days 2-5 Oralas directed for 5 Days diclofenac (diclofenac sodium 100 mg oral tablet, extended release) 100 mg Oral once a day venlafaxine (venlafaxine 75 mg oral tablet) 2 tablets in the morning and 3 tablets at bedtime Oral as directed levonorgestrel (Mirena) albuterol (albuterol) 2 puff(s) Inhalation Additional Information: Yes - Current list of reconciled medications is provided and explained to the patient and/or family, guardian/caregiver. Source: [facility] Incap Document Id: [id number] DAUBER Miscellaneous - Nori Hirsch N.P. - 02/10/2011 8:38 AM CST School or Work Excuse School or Work Excuse Entered On: 02/10/2011 8:38 OVEN DAUBER Performed On: 02/10/2011 8:38 OVEN DAUBER by NORI HIRSCH NP School or Work Excuse Date Patient Seen : 02/10/2011 OVEN DAUBER Date of Return to School/Work Without Restrictions : 02/13/2011 OVEN DAUBER NORI HIRSCH VICE PRESIDENT SALES - 02/10/2011 8:38 OVEN DAUBER Source: [facility] Incap Document Id: [id number] OVEN DAUBER!4 DAUBER Jarred - Vu Wilkes L.P.NDevyn - 02/10/2011 8:12 AM CST Health Assessment Health Assessment Entered On: 02/10/2011 8:13 OVEN DAUBER Performed On: 02/10/2011 8:12 OVEN DAUBER by VU WILKES LPN Health Assessment Complete Health Assessment Complete or Modified : Annual Health Assessment Annual Health Assessment Completed : Yes VU WILKES LPN - 02/10/2011 8:12 OVEN DAUBER Nutrition Nutrition Risk Factors by History Adult : None VU WILKES LPN - 02/10/2011 8:12 OVEN DAUBER Functional Current Daily Living Assistance : None VU WILKES LPN - 02/10/2011 8:12 OVEN DAUBER Dependent Habits Tobacco Use/Currently Using : No Tobacco Use/Last 12 months : No Tobacco Use/Advised to Quit : No Smoking Status : Never smoker VU WILKES LPN - 02/10/2011 8:12 OVEN DAUBER Caffeine Use Grid Caffeine Use : None VU WILKES LPN - 02/10/2011 8:12 OVEN DAUBER Psychosocial Domestic Abuse Concerns : None VU WILKES LPN - 02/10/2011 8:12 OVEN DAUBER Advance Directive Advanced Directives : No VU WILKES LPN - 02/10/2011 8:12 OVEN DAUBER Educ Needs Learning Style Preference Adult Grid Patient : None Family : None VU WILKES LPN - 02/10/2011 8:12 OVEN DAUBER Source: [employer] Document Id: [id number] OVEN DAUBER!24 DAUBER Miscellaneous - Vu Wilkes L.P.NDevyn - 02/10/2011 8:09 AM CST Adult Contact Worker Intake/History Adult Contact Worker Intake/History Entered On: 02/10/2011 8:12 OVEN DAUBER Performed On: 02/10/2011 8:09 OVEN DAUBER by VU WILKES LPN Intake Chief Complaint : ST for 2 weeks tired cough non productive Onset of Symptoms : 2 weeks Temperature Core : 36.6C(Converted to: 97.9DegF) Systolic Blood Pressure : 128mmHg Diastolic Blood Pressure : 80mmHg NIBP Mean : 96mmHg BP Location : Right upper extremity Blood Pressure Cuff Size : Regular VU WILKES LPN - 02/10/2011 8:09 OVEN DAUBER Subjective Pain Symptoms : Yes VU WILKES LPN - 02/10/2011 8:09 OVEN DAUBER Pain Pain Assessment Grid Pain 1 Location : Throat Laterality : Bilateral Intensity : 6 VU WILKES LPN - 02/10/2011 8:09 OVEN DAUBER Dependent Habits Tobacco Use/Currently Using : No Tobacco Use/Last 12 months : No Tobacco Use/Advised to Quit : No Smoking Status : Never smoker Alcohol Use : No VU WILKES LPN - 02/10/2011 8:09 OVEN DAUBER Caffeine Use Grid Caffeine Use : None VU WILKES LPN - 02/10/2011 8:09 OVEN DAUBER Allergy Allergies (Active) codeine Estimated Onset Date: Unspecified ; Created By: EDY JUSTICE LPN; Reaction Status: Active ; Category: Drug ; Substance: codeine ; Type: Allergy ; Updated By: EDY JUSTICE LPN; Reviewed Date: 10/03/2010 8:13 CDT [facility] [employer] Document Id: [id number] OVEN DAUBER!27 DAUBER documented in this encounter Plan of Treatment Not on filedocumented as of this encounter Procedures Procedure Name Priority Date/Time Associated Diagnosis Comme nts AUTOMATED Routine 02/10/2011 9:00 AM Results f or this DIFFERENTIAL, B OVEN DAUBER procedure ar e in the results section. CBC WITH Routine 02/10/2011 9:00 AM Results f or this DIFFERENTIAL, B OVEN DAUBER procedure ar e in the results section. MAGNESIUM, S Routine 02/10/2011 9:00 AM Results f or this OVEN DAUBER procedure are i n the results section. FOLATE, S Routine 02/10/2011 9:00 AM Results f or this OVEN DAUBER procedure are i n the results section. FERRITIN, S Routine 02/10/2011 9:00 AM Results f or this OVEN DAUBER procedure are i n the results section. VITAMIN B12 ASSAY, Routine 02/10/2011 9:00 AM Res ults for this S OVEN DAUBER procedure are i n the results section. BASIC METABOLIC Routine 02/10/2011 9:00 AM Result s for this PANEL, S/P OVEN DAUBER procedure are i n the results section. RAPID STREP A Routine 02/10/2011 8:20 AM Results for this SCREEN OVEN DAUBER procedure are i n the results section. RAPID STREP A Routine 02/10/2011 8:19 AM Results for this SCREEN OVEN DAUBER procedure are i n the results section. documented in this encounter Results Automated Differential (02/10/2011 9:00 AM OVEN DAUBER) P athologist Signature Neutro % 66.6 42.0 - POWERCHART 77.0 Lymphocytes % 25.3 23.0 - POWERCHART 44.0 HX [place] % 5.4 2.0 - 11.0 POWERCHART HX Eos % 2.3 1.0 - 5.0 POWERCHART HX Baso % 0.4 0.0 - 1.0 POWERCHART Absolute 5.58 1.70 - POWERCHART Neutrophils 7.00 109L Lymphocytes 2.12 0.90 - POWERCHART 2.90 X109L Monocytes 0.45 0.20 - POWERCHART 0.80 X109L Eosinophils 0.19 0.04 - POWERCHART 0.40 X109L Absolute 0.03 0.02 - POWERCHART Basophil 0.10 X109L Specimen Anatomical Collection Method Collection Time Receive d Time (Source) Location / / Volume Laterality Blood 02/10/2011 9:00 AM 01/06/201 2 9:00 OVEN DAUBER AM OVEN DAUBER Nori Hirsch N.P. LAB BLOOD ADD-ON Performing Organization Address City/State/ZIP Code Phon e Number POWERCHART CBC with Differential (02/10/2011 9:00 AM OVEN DAUBER) P athologist Signature Leukocytes 8.4 4.8 - 10.8 POWERCHART X109L Erythrocytes 4.64 4.20 - POWERCHART 5.40 X109L Hemoglobin 13.7 12.0 - POWERCHART 15.5 GDL Hematocrit 40.9 37.0 - POWERCHART 47.0 MCV 88 81 - 99 [place] POWERCHART HX RDW 12.9 11.5 - POWERCHART 14.5 Platelet Count 369 150 - 450 POWERCHART X109L HXDifferential? Auto POWERCHART Specimen (Source) Anatomical Collection Method Collection Time Re ceived Time Location / / Volume Laterality Blood 02/10/2011 9:00 AM OVEN DAUBER Nori Hirsch N.P. LAB BLOOD ADD-ON Performing Organization Address City/State/ZIP Code Phon e Number POWERCHART (ABNORMAL) BMP (Basic Metabolic Panel) (02/10/2011 9:00 AM OVEN DAUBER) Analysis Performed At Patho logist Time Signature Sodium, S 136.2 135.0 - POWERCHART 145.0 MML Potassium, S 3.9 3.6 - 4.8 POWERCHART MML Chloride, S 102 100 - 108 POWERCHART MML CO2 Total 29.4 (H) 23.0 - POWERCHART 29.0 MMOLL BUN (Blood Urea 8 7 - 18 POWERCHART Nitrogen), S MGDL Creatinine 0.69 0.60 - POWERCHART 1.30 MGDL Calcium, Total, 9.1 8.5 - 10.1 POWERCHART S MGDL BUN/Creatinine 11.0 10.0 - POWERCHART Ratio 20.0 Anion Gap 5 (L) 10 - 20 POWERCHART MMOLL HXeGFR (MDRD) >60 (H) <=61 POWERCHART [id number] Comment: A GFR of <60 mL/min is indicative of chr onic kidney disease. (MDRD calculation valid on patients 18 - 70 years.) eGFR Black/ >60 MLMIN PO WERCHART Glucose 89 70 - 139 MGDL POWERCHART Specimen (Source) Anatomical Collection Method Collection Time Re ceived Time Location / / Volume Laterality Blood 02/10/2011 9:00 AM OVEN DAUBER Nori R Joycelyn N.P. LAB BLOOD ADD-ON Performing Organization Address City/State/ZIP Code Phon e Number POWERCHART Magnesium (02/10/2011 9:00 AM OVEN DAUBER) P athologist Signature Magnesium, S 2.1 1.7 - 2.1 POWERCHART MGDL Specimen (Source) Anatomical Collection Method Collection Time Re ceived Time Location / / Volume Laterality Blood 02/10/2011 9:00 AM OVEN DAUBER Nori R Joycelyn N.P. LAB BLOOD ADD-ON Performing Organization Address City/State/ZIP Code Phon e Number POWERCHART Vitamin B12 Assay (02/10/2011 9:00 AM OVEN DAUBER) P athologist Signature Vitamin B12 518 180 - 914 POWERCHART Assay, S NGL Comment: Test Performed by: [facility] Dpt of Lab Med and Pathology [address] [place] [address] Supervisor Personnel Clerks: Tommy kimball III, M.D. Specimen (Source) Anatomical Collection Method Collection Time Re ceived Time Location / / Volume Laterality Blood 02/10/2011 9:00 AM OVEN DAUBER Nori Hirsch NMaurilio. LAB BLOOD ADD-ON Performing Organization Address [facility] Phon e Number POWERCHART Folate (02/10/2011 9:00 AM OVEN DAUBER) P athologist Signature Folate, S 12.7 >=3.5 MCGL POWERCHART Comment: Test Performed by: [facility] Dpt of Lab Med and Pathology [address] [place] [address] Supervisor Personnel Clerks: Tommy kimball III, M.D. Specimen (Source) Anatomical Collection Method Collection Time Re ceived Time Location / / Volume Laterality Blood 02/10/2011 9:00 AM OVEN DAUBER Nori R Joycelyn N.P. LAB BLOOD ADD-ON Performing Organization Address City/[facility] Code Phon e Number POWERCHART Ferritin (02/10/2011 9:00 AM OVEN DAUBER) P athologist Signature Ferritin, S 43 11 - 307 POWERCHART MCGL Comment: Test Performed by: [facility] Dpt of Lab Med and Pathology [address] [place] [address] Supervisor Personnel Clerks: Tommy kimball III, M.D. Specimen (Source) Anatomical Collection Method Collection Time Re ceived Time Location / / Volume Laterality Blood 02/10/2011 9:00 AM OVEN DAUBER Nori Hirsch N.P. LAB BLOOD ADD-ON Performing Organization Address City/[facility] Phon e Number POWERCHART Rapid Strep A Screen (02/10/2011 8:20 AM OVEN DAUBER) Patholo gist Method Time Signature HXRapid Strep POWERCHART Confirmation HXPre Negative for POWERCHART Group A Strep by culture. HXFinal Negative for POWERCHART Group A Strep by culture. Specimen Anatomical Collection Method Collection Time Receive d Time (Source) Location / / Volume Laterality Throat 02/10/2011 8:20 AM 2 8:20 OVEN DAUBER AM OVEN DAUBER Nori Hirsch N.P. LAB MICROBIOLOGY - GENERAL O RDERABLES Performing Organization Address City/[facility] Phon e Number POWERCHART Rapid Strep A Screen (02/10/2011 8:19 AM OVEN DAUBER) Patholo Cryptonator Method Time Signature HXStrep A POWERCHART Screen Rapid HXFinal Negative for POWERCHART Strep Group A by rapid screen. HXFinal Culture POWERCHART confirmation to follow. Specimen (Source) Anatomical Collection Method Collection Time Re ceived Time Location / / Volume Laterality Throat 02/10/2011 8:19 AM OVEN DAUBER Nori Hirsch N.P. LAB MICROBIOLOGY - GENERAL O RDERABLES Performing Organization Address City/[facility] Phon e Number POWERCHART documented in this encounter Visit Diagnoses Not on filedocumented in this encounter
--- OUTSIDE RECORDS SUMMARY | 2021-12-12 10:00 | XMS_ITS | Encounter Summary ---
:1975 [facility] Address [address] [place] [address] Care Team Providers Name Role Phone Unavailable Primary Care Provider Unavailable Encounter Details Date Type Department Care Team Description 08/18/2011 Hospital Encounter HX [facility] Wyatt Hirsch, N.P. [address] [place] [address] 7701 (Wo rk) Social History Tobacco Use Types Packs/Day Years Used Date Smoking Tobacco: Never Assessed Sex Assigned at Date Recorded Not on file documented as of this encounter Last Filed Vital Signs Vital Sign Reading Time Taken Comments Blood Pressure 110/70 08/18/2011 8:09 AM CDT Pulse 76 08/18/2011 8:09 AM CDT Temperature - - Respiratory Rate 16 08/18/2011 8:09 AM CDT Oxygen Saturation - - Inhaled Oxygen Concentration - - Weight 121 kg (266 lb 12.1 oz) 08/18/2011 8:09 AM CDT Height 161 cm (5' 3.39) 08/18/2011 8:09 AM CDT Body Mass Index 46.68 08/18/2011 8:09 AM CDT documented in this encounter H&P Notes Giuliano Hirsch, N.P. - 08/18/2011 12:00 AM CDT [id number] CHIEF COMPLAINT/REASON FOR VISIT: Annual exam medication renewal. HISTORY OF PRESENT ILLNESS: Mirella is a 36-year-old female who is here today for her annual exam. She states that she is well and healthy today and denies any acute concerns. However, she is requesting refills on her medications. Mirella does have a history of agoraphobia, dysthymic disorder, and post-traumatic stress disorder that is currently well managed with her current regimen of Effexor. She also has a history of chronic back pain dating back 10-15 years secondary to degenerative disc disease and disc bulging that is well managed with diclofenac once daily. She has a history of asthma as well which she is currently up-to-date on her asthma measures and is managed just with an as needed albuterol inhaler. CURRENT MEDICATIONS: 1. Diclofenac 100 mg extended release one tablet daily. 2. Requip 0.25 mg at bedtime for restless leg. 3. Effexor 75 mg tablet, two tablets in the morning and three tablets at bedtime. 4. Albuterol inhaler as needed for asthma symptoms. 5. Mirena IUD placed in 2008. ALLERGIES: Codeine. PAST MEDICAL HISTORY 1. Agoraphobia with panic disorder. 2. Asthma. 3. Dysthymic disorder. 4. Post-traumatic stress disorder. 5. Restless leg. PAST SURGICAL HISTORY 1. Cholecystectomy. 2. Sinus surgery. 3. Tubal ligation. REVIEW OF PREVENTATIVE SERVICES We will go ahead and get a Pap smear today as her last one was in 2007. She denies any history of abnormals. She gets her lipids screened annually through her employer and states that they have been within normal limits in the past. She is otherwise up-to-date on her PHQ-9 and asthma measures. SOCIAL HISTORY: Mirella is . She is employed. She has three children. She does not smoke or use alcohol. VITAL SIGNS: Temperature 37.4. Pulse 76. Respirations 16. Blood pressure 110/70. Height is 161 cm. Weight 121 kg. BMI is 46. PHYSICAL EXAMINATION: GENERAL: Mirella is alert and oriented x3. She appears in no acute distress. HEENT: Head is normocephalic, atraumatic. Bilateral tympanic membranes are shiny ardon, intact with no erythema or effusion present. Pupils equal, round, and reactive to light and accommodation. Extraocular movements intact. Nares are patent. Oropharynx is without erythema, exudate or swelling. NECK: Supple with no lymphadenopathy. No carotid bruit or thyromegaly. HEART: Heart rate is regular. S1, S2 is present. No murmur or rub. LUNGS: Clear to auscultation. BREASTS: Breast exam yields no masses or nodules. No axillary lymphadenopathy. ABDOMEN: Soft, nondistended. Bowel sounds are present x4 and normoactive. : External genitalia normal. Speculum exam reveals normal appearing cervix with IUD strings intact. Bimanual exam yields no adnexal mass or tenderness. DIAGNOSTICS Pap smear obtained and pending at time of dictation. IMPRESSION/REPORT/PLAN: 1. Annual exam with screening for cervical cancer. 2. History of dysthymic disorder, post-traumatic stress disorder, and agoraphobia. 3. Restless leg. PLAN 1. Health preventative services were reviewed with Mirella today. She is up-to-date as far as these with getting her Pap smear today. 2. Medication refills were provided on her Requip, Effexor, and diclofenac. Her last kidney function check was in February of 2011 which we will need to update this yearly to be able to continue her medicines.. Mirella's questions have been addressed and she is agreeable to this plan of care. Patient Education Ready to learn No apparent learning barriers were identified Learning preferences include listening Explained diagnosis and treatment plan Patient/Child/Caregiver expressed understanding of the content Mariya Lewis/carmen Electronically Signed By: GIULIANO HIRSCH CANARY BREEDER On: 08/22/2011 09:39 AM Source: [facility] MHSDOLBEYNONRADSYS Document Id: [id number] documented in this encounter Miscellaneous Notes Miscellaneous - Jessy Atkinson L.P.N. 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 Intake/History Entered On: 08/18/2011 8:12 CDT Performed On: 08/18/2011 8:09 CDT by JESSY ATKINSON Intake Chief Complaint : cpe with pap and medication refill Temperature Core : 37.4C(Converted to: 99.3DegF) Peripheral Pulse Rate : 76/min Respiratory Rate : 16/min Heart Rhythm : Regular Systolic Blood Pressure : 110mmHg Diastolic Blood Pressure : 70mmHg NIBP Mean : 83mmHg BP Location : Left upper extremity Blood Pressure Cuff Size : Large Height : 161cm(Converted to: 5ft 3inch(es), 63.39inch(es)) Actual Weight : 121kg(Converted to: 266lb 12oz) Dosing Weight Clinic : 121.00kg Clinic BSA : 2.33 Body Mass Index : 46.68kg/m2 JESSY ATKINSON - 08/18/2011 8:09 CDT Subjective Pain Symptoms : No JESSY ATKINSON - 08/18/2011 8:09 CDT Dependent Habits Tobacco Use/Currently Using : No Smoking Status : Never smoker JESSY ATKINSON - 08/18/2011 8:09 CDT Tobacco Use Grid Last Use : never JESSY ATKINSON 08/18/2011 8:09 CDT Caffeine Use Grid Caffeine Use : None JESSY ATKINSON 08/18/2011 8:09 CDT Allergy Allergies (Active) codeine Estimated Onset Date: Unspecified ; Created By: ANNMARIE JUSTICE LPN; Reaction Status: Active ; Category: Drug ; Substance: codeine ; Type: Allergy ; Updated By: ANNMARIE JUSTICE LPN; Reviewed Date: 02/10/2011 8:13 PRINCIPAL IOS DEVELOPER [facility] Document Id: [id number] documented in this encounter Plan of Treatment Not on filedocumented as of this encounter Procedures Procedure Name Priority Date/Time Associated Diagnosis Comme nts HXPHYS INTERP OF Routine 08/18/2011 9:15 AM Resul ts for this THIN PREP, PAP CDT procedure are in the results section. THINPREP SCREEN HPV Routine 08/18/2011 9:15 AM Re sults for this REFLEX CDT procedure are i n the results section. documented in this encounter Results HXPHYS INTERP OF THIN PREP, PAP (08/18/2011 9:15 AM CDT) [facility] Method Time Signature Interpretation Performed POWERCHART Comment: Test Performed by: [address] [address] Payroll Analyst: Tommy kimball III, M.D. Specimen Anatomical Collection Method Collection Time Receive d Time (Source) Location / / Volume Laterality Cervix/Endocervi 08/18/2011 9:15 AM 08/20 x CDT 10:36 AM CDT Historical Provider LAB HISTORICAL ORDERS Performing Organization Address [facility] Code Phon e Number POWERCHART Pathology ThinPrep Screen HPV Reflex (08/18/2011 9:15 AM CDT) [facility] Method Time Signature Interpretation [id number] POWERCHART HXThPrep Scrn See Comment POWERCHART [facility] Comment: A. ??ThinPrep Pap Test Screen (Cervical/ Endocervical HPV Reflex): Satisfactory for evaluation. Negative for intraepithelial lesion or m alignancy. Reactive/Reparative squamous cells prese nt. HXThPrep Scrn [facility] See Comment [facility] Comment: RESULT: Annmarie Lindsay, CT( ASCP) HXThPrep Scrn [facility] See Comment [facility] Comment: RESULT: 08/25/2011 12:49 Interpreted by: Yassine Pleitez M.D., PhD. Report electronically signed by Yassine Pleitez M.D., PhD. Transcribed by: [facility] ??08/25/2011 12:07:5 3 HX Spec [facility] See Comment POWERCHART Comment: A. ??ThinPrep Pap Test Screen (Cervical/ Endocervical HPV Reflex): Received cloudy specimen in ThinPrep via l. Test Performed by: [address] [address] Payroll Analyst: Tommy kimball III, M.D. Specimen (Source) Anatomical Collection Method Collection Time Re ceived Time Location / / Volume Laterality Cervix/Endocervix 08/18/2011 9:15 AM CDT Giuliano Hirsch N.P. LAB PAP PATHDX ORDERABLES Performing Organization Address [facility] Phon e Number POWERCHART documented in this encounter Visit Diagnoses Not on filedocumented in this encounter
--- OUTSIDE RECORDS SUMMARY | 2021-12-12 10:00 | XMS_ITS | Encounter Summary ---
:1975 Author Organization [facility] Address [address] [place] [address] Care Team Providers Name Role Phone Unavailable Primary Care Provider Unavailable Encounter Details Date Type Department Care Team Description 05/09/2010 - Hospital Encounter HX [facility] Ismael Browne, 08/25/2010 [facility] [place] [address] [place] [address] Social History Tobacco Use Types Packs/Day Years Used Date Smoking Tobacco: Never Assessed Sex Assigned at Date Recorded Not on file documented as of this encounter Discharge Summaries Mainor Draper P.T. - 06/13/2010 12:00 AM CDT [id number] IMPRESSION/REPORT/PLAN Patient was evaluated and treated under the referral of Dr. Browne for a lumbar disc degeneration. She was seen times two treatment sessions. Plan of care included patient education, home exercise program, and stabilization exercises. Patient progressed towards goals, was able to demonstrate independent home exercise program. She chose to work on program independently and was safe to do this. Therefore, patient will be discharged into independent home exercise program at patient choice. Mainor Draper M.P.T. /mya Electronically Signed By: MAINOR DRAPER On: 06/14/2010 01:30 Source: [facility] MHSDOLBEYNONRADSYS Document Id: [id number] documented in this encounter Progress Notes Mainor Draper P.T. - 05/16/2010 12:00 AM CDT [id number] IMPRESSION/REPORT/PLAN We performed posterior pelvic tilts, dynamic lumbar stabilization with lower extremity knee extension, dynamic lumbar stabilization of lower extremity leg raises and bridging. We also gave patient a progression or alternative program to work on as well including new exercises today of quadruped with upper and lower extremity extension, neutral pelvic positioning with upper and lower extremity elevation and dynamic lumbar stabilization with lower extremity leg raises with upper extremity elevation as well 3-times, 10-repetitions once every other day. Patient will alternate programs. Patient tolerated treatment well. She was given a written handout with illustrations. PATIENT EDU #1 Patient Education Ready to learn. No apparent learning barriers were identified. Learning preferences include listening. Explained diagnosis and treatment plan. Patient/Child/Caregiver expressed understanding of the content. Verbalized understanding. PLAN Plan to have patient work on independent home exercise program per patient wish. Patient will contact us with any questions, difficulties or when she needs a progression. CHIEF COMPLAINT/REASON FOR VISIT Patient reports things are going well with the program. She is feeling comfortable with them. Jr De Leon. /mya Electronically Signed By: MAINOR DRAPER On: 05/16/2010 02:18 Source: [facility] MHSDOLBEYNONRADSYS Document Id: [id number] Mainor Draper P.T. - 05/09/2010 12:00 AM CDT [id number] REFERRAL SOURCE / ORDER Patient is referred to physical therapy by Dr. Browne for a lumbar disc degeneration. HISTORY OF CONDITION Patient reports that she has had intermittent back pain. She has flare ups and then they go away with each flare up seeming to get worse than the last. She does report a history of disc bulges at three levels. Her goal of therapy is to learn how to strengthen her back and stomach muscles. She was unsure of what caused her last flare up but it has been significantly improving. The flare ups began back in 1990. She has not had surgery. She has had X-Rays and MRIs performed. Her pain at present is a 0 out 10 but could reach a 10 out of 10 or greater with her flare ups which often consist of muscle spasms. She describes her symptoms when she has them as constant, aching, throbbing, sharp, and burning. She denies any radicular symptoms and her symptoms always seem to better with lying down. Currently she has no limitations. MEDICATIONS She is on Mirena, Albuterol and Effexor. She is not taking anything for pain. PAST MEDICAL HISTORY She identifies chronic headaches and migraines which are addressed. Back pain. Asthma which she has an inhaler for. Depression and anxiety for which she has medications for. She also has an ALLERGY TO CODEINE. In the past few months patient denies any fever or chills, nausea, vomiting, numbness in the genital or anal area, dizziness or fainting, unexplained weakness, unexplained weight change, night sweats, problems with vision, hearing or speech or difficulty with bowel or bladder function. She does have pain at times. She rates her over-all health as average. She does exercise three times per week. She enjoys walking and swimming. General stress level is moderate. She does not smoke, does not drink caffeinated beverages and denies any difficulty with communication. 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 Most of her job is consisted of sitting activities. PHYSICAL EXAMINATION Patient did complete the ambulatory fall assessment. She has not had any falls within the last year. She is able to pass the Tug test without difficulty. Trunk range of motion is within normal limits. Pain and discomfort noted on extension. Heel and toe walking is negative. Straight leg raise is negative. Reflexes are intact and equal bilaterally in the lower extremities. Manual muscle testing of the lower extremities is a 5 out of 5 in strength. Patient will be treated for back pain. IMPRESSION/REPORT/PLAN We initiated a home exercise program including posterior pelvic tilt, dynamic lumbar stabilization with lower extremity knee extension, dynamic lumbar stabilization with lower extremity straight leg raise and bridging at 3-times, 10-repetitions once a day. Patient demonstrated independence with the exercises, was given a written handout with illustrations and verbalized understanding. She was also provided patient education regarding body mechanics, body mechanics with common activities, body mechanics with lifting, posture and proper sitting, standing and transfers with spinal precautions. Patient tolerated treatment well. GOALS Patient goals to include: 1) Patient will safely and independently perform home exercise program in one to two treatment sessions. 2) Patient will be able to independently progress program in two to three weeks. REHAB POTENTIAL Patient has good rehab potential to achieve goals. PLAN OF CARE To include patient education, home exercise program, stabilization exercises. PLAN The plan is to see patient once a week for up to four weeks. Patient is in agreement this current plan of care. Willie De Leon Co-Signature: Ismael Browne M.D. /mya Electronically Signed By: MAINOR DRAPER On: 05/10/2010 09:45 Modified by and Electronically Signed by: MAINOR DRAPER On: 05/10/2010 09:45 AM Co-Signed By: ISMAEL BROWNE MD On: 06/14/2010 03:07 PM Source: [facility] MHSDOLBEYNONRADSYS Document Id: [id number] documented in this encounter Plan of Treatment Not on filedocumented as of this encounter Visit Diagnoses Not on filedocumented in this encounter
--- OUTSIDE RECORDS SUMMARY | 2021-12-12 10:00 | XMS_ITS | Encounter Summary ---
:1975 Author Organization [facility] Address [address] [place] [address] Care Team Providers Name Role Phone Unavailable Primary Care Provider Unavailable Encounter Details Date Type Department Care Team Description 08/16/2011 Hospital Encounter HX [facility] Ellen Berger M.D. [address] [place], [place] [phone] (Wo rk) Social History Tobacco Use Types Packs/Day Years Used Date Smoking Tobacco: Never Assessed Sex Assigned at Date Recorded Not on file documented as of this encounter Plan of Treatment Not on filedocumented as of this encounter Visit Diagnoses Not on filedocumented in this encounter
--- OUTSIDE RECORDS SUMMARY | 2021-12-12 10:00 | XMS_ITS | Encounter Summary ---
:1975 Author Organization [facility] Address [address] [place] [address] Care Team Providers Name Role Phone Unavailable Primary Care Provider Unavailable Encounter Details Date Type Department Care Team Description 11/27/[address] [facility] INPT/OBSRV Sandhya Park M.D. Social History Tobacco Use Types Packs/Day Years Used Date Smoking Tobacco: Never Assessed Sex Assigned at Date Recorded Not on file documented as of this encounter Plan of Treatment Not on filedocumented as of this encounter Visit Diagnoses Not on filedocumented in this encounter
--- OUTSIDE RECORDS SUMMARY | 2021-12-12 10:00 | XMS_ITS | Encounter Summary ---
:1975 Author Organization [facility] Address [address] [place] [address] Care Team Providers Name Role Phone Unavailable Primary Care Provider Unavailable Encounter Details Date Type Department Care Team Description 05/03/2010 Hospital Encounter HX NO MAPPING Vlad Browne M.D. [address] [place], [place] [phone] (Wo rk) Social History Tobacco Use Types Packs/Day Years Used Date Smoking Tobacco: Never Assessed Sex Assigned at Date Recorded Not on file documented as of this encounter Plan of Treatment Not on filedocumented as of this encounter Visit Diagnoses Not on filedocumented in this encounter
--- OUTSIDE RECORDS SUMMARY | 2021-12-12 10:00 | XMS_ITS | Encounter Summary ---
:1975 Author Organization [facility] Address [address] [place] [address] Care Team Providers Name Role Phone Unavailable Primary Care Provider Unavailable Encounter Details Date Type Department Care Team Description 10/03/2010 Hospital Encounter H[facility] Wyatt Hirsch NDevynP. [address] [place] [phone] (Wo rk) Social History Tobacco Use Types Packs/Day Years Used Date Smoking Tobacco: Never Assessed Sex Assigned at Date Recorded Not on file documented as of this encounter Progress Notes Giuliano Hirsch, N.P. - 10/03/2010 12:00 AM CDT [id number] CHIEF COMPLAINT/REASON FOR VISIT Insect bites. HISTORY OF PRESENT ILLNESS Mirella is a 35-year-old female who is here today with concerns about insect bites. She reports she was camping all last week in [place] and got multiple insect bites. She reports that the insect bites have been very itchy and slightly red. Some of them have been slightly oozing. She is concerned because she has also had a little bit of fatigue and some slight fever and some sore muscles. She states she also has a history of allergies and had a runny nose and cough. She is to return to work today and is just concerned about returning with this significance of her insect bites and has also heard there were some measles cases happening in her area. She would just like to make sure that her insect bites truly are insect bites and do not appear like measles. She denies any known fever, although she has had subjective fevers. She has had no headache. She denies any other rash with the exception of the insect bites. Mirella denies any abdominal complaints and any known exposures. She does have a history of being fully immunized, although she reports she had mumps when she was little. CURRENT MEDICATIONS Reviewed. No change. Please see EMR. ALLERGIES 1. Codeine. PAST MEDICAL/SURGICAL HISTORY Past medical history is reviewed. No change. Please see EMR. VITAL SIGNS Temperature 36.9, pulse 92, respirations 20, blood pressure 118/76. PHYSICAL EXAMINATION GENERAL: Mirella is alert, oriented x3, appears in no acute distress. HEENT: Head is normocephalic, atraumatic. Bilateral TMs are shiny, ardon, intact with no erythema or effusion present. Nares are patent. Oropharynx is without erythema, exudate, or swelling. No lesions are noted on the oral mucosa. NECK: Neck is supple with no lymphadenopathy. HEART: Heart rate is regular; S1-S2 is present. No murmur or rub. LUNGS: Clear to auscultation. SKIN: Upper and lower extremities as well as anterior and posterior trunk are examined. Multiple single macular papular erythematous lesions are noted that look very much like insect bites. There is no confluence noted with these. IMPRESSION/REPORT/PLAN 1. Insect bites. PLAN: 1. Reassured Mirella that her insect bites looked very typical for insect bites and had very low concern about measles. I did provide her with a handout regarding the symptoms and diagnosis of measles. We did review the most common symptoms found with measles and it was reassuring that Mirella has had very few of these. 2. A work note was written stating that Mirella could return to work today. She certainly may use an antihistamine as needed to help with the itching and/or use an over the counter topical steroid cream for symptomatic relief. 3. Mirella's questions have been addressed and she is agreeable to this plan of care and will follow up as needed. PATIENT EDUCATION: Ready to learn No apparent learning barriers were identified Learning preferences include listening Explained diagnosis and treatment plan Patient/Child/Caregiver expressed understanding of the content Giuliano Hirsch N.P. /danielle Electronically Signed By: GIULIANO HIRSCH NP On: 10/03/2010 04:10 PM Source: [facility] Document Id: [id number] documented in this encounter Miscellaneous Notes Miscellaneous - Giuliano Hirsch N.P. - 10/03/2010 9:01 AM CDT Ambulatory Patient Summary [address] [address] Visit Information Name: MIRELLA JOHNSON Current Date: 10/03/2010 09:01:10 Primary Care Provider: GIULIANO HIRSCH SERVICENOW ADMINISTRATOR Your Medications Here is a list of [...] 100 mg Oral once a day venlafaxine (Effexor) 75 mg Oral [...] (PTSD) Active 02/05/1994 Dysthymic Disorder Active 1995 Your Recommendations We want to make sure [...] Depression: PHQ-9 every 6 months 10/03/2010 04/04/2011 Screening Pap Smear every 3 years Women 21-65 10/03/2010 Checks for signs of cancer of the cervix. Lipid Panel every 5 years Age 20-75 10/03/2010 Checks blood for good (HDL) and bad [...] No Appointments found Your Goals/Additional instructions: [facility]: [facility] Document Id: [id number] Electronically signed by Deana [facility] Double End Production Grinder [id number] at 07/09/2016 11:39 PM CDT Miscellaneous - Giuliano Hirsch, N.P. - 10/03/2010 9:01 AM CDT Ambulatory Depart Summary [address] [address] Visit Information Name: MRIELLA JOHNSON Current Date: 10/03/2010 09:01:10 Primary Care Provider: GIULIANO HIRSCH SERVICENOW ADMINISTRATOR MIRELLA JOHNSON has been given the following [...] 100 mg Oral once a day venlafaxine (Effexor) 75 mg Oral 2 tabs in am and 3 tabs in pm levonorgestrel (Mirena) albuterol (albuterol) 2 puff(s) Inhalation Additional Information: Yes - Current list of reconciled medications is provided and explained to the patient and/or family, guardian/caregiver. Source: [employer] Document Id: [id number] Electronically signed by [facility]ana [facility] Double End Production Grinder [id number] at 07/09/2016 11:39 PM CDT Miscellaneous - Giuliano Hirsch N.P. - 10/03/2010 9:00 AM CDT Quality Measures Quality Measures Entered On: 10/03/2010 9:01 CDT Performed On: 10/03/2010 9:00 CDT by GIULIANO HIRSCH NP Depression PHQ-9 Score: 9 GIULIANO HIRSCH NP - 10/03/2010 9:00 CDT Source: [facility] HealthEquityCHART Document Id: [id number] CDT!3 Miscellaneous - Giuliano Hirsch N.PDevyn - 10/03/2010 8:32 AM CDT School or Work Excuse School or Work Excuse Entered On: 10/03/2010 8:32 CDT Performed On: 10/03/2010 8:32 CDT by GIULIANO HIRSCH NP School or Work Excuse Date Patient Seen: 10/03/2010 CDT School or Work Restrictions: No Restrictions Date of Return to School/Work Without Restrictions: 10/03/2010 CDT GIULIANO HIRSCH NP - 10/03/2010 8:32 CDT [facility]: [facility] Document Id: [id number] CDT!5 Miscellaneous - Deana, [facility] Provider Ser - 10/03/2010 8:05 AM CDT Adult Health Occupations Instructor Intake/History Adult Health Occupations Instructor Intake/History Entered On: 10/03/2010 8:13 CDT Performed On: 10/03/2010 8:05 CDT by LILIANE PEDERSON LPN Intake Chief Complaint: c/obites all over body Onset of Symptoms: been camping all week - started on Sat. Temperature Core: 36.9C(Converted to: 98.4DegF) Peripheral Pulse Rate: 92/min Respiratory Rate: 20/min Systolic Blood Pressure: 118mmHg Diastolic Blood Pressure: 76mmHg NIBP Mean: 90mmHg BP Location: Right upper extremity Heart Rhythm: Regular Actual Weight: 118.200kg(Converted to: 260lb 9oz) Weight Source: Standing scale Dosing Weight Clinic: 118.20kg LILIANE PEDERSON CHARI - 10/03/2010 8:05 CDT Subjective Pain Symptoms: No LILIANE PEDERSON CHARI - 10/03/2010 8:05 CDT Dependent Habits Tobacco Use/Currently Using: No Alcohol Use: No LILIANE PEDERSON CHARI - 10/03/2010 8:05 CDT Caffeine Use Grid Caffeine Use: None LILIANE PEDERSON CHARI - 10/03/2010 8:05 CDT Allergy Allergies (Active) codeine Estimated Onset Date: Unspecified ; Created By: EDY JUSTICE LPN; Reaction Status: Active ; Category: Drug ; Substance: codeine ; Type: Allergy ; Updated By: EDY JUSTICE LPN; Reviewed Date: 07/01/2010 8:08 CDT Source: [facility] Squirrly Document Id: [id number] CDT!23 documented in this encounter Plan of Treatment Not on filedocumented as of this encounter Visit Diagnoses Not on filedocumented in this encounter
--- OUTSIDE RECORDS SUMMARY | 2021-12-12 10:01 | XMS_ITS | Encounter Summary ---
:1975 Author Organization [facility] Address [address] [place] [address] Care Team Providers Name Role Phone Unavailable Primary Care Provider Unavailable Encounter Details Date Type Department Care Team Description 08/22/2002 Hospital Encounter [facility] Nirali Valentine M.D. [address] [place] [address] (Wo rk) Social History Tobacco Use Types Packs/Day Years Used Date Smoking Tobacco: Never Assessed Sex Assigned at Date Recorded Not on file documented as of this encounter Progress Notes Conversion, Historical Provider Ser - 08/22/2002 10:00 AM CDT [id number] SUBJECTIVE: Mirella is a 27 year old female who presents to recheck weight issues. She has taken Fast in for 3 months and also using weight waatchers food counting system adn was exercising until she breanne t her back. She has lost 12 lbs in 4 months. She would like to continue the Fastin. She did not se e Nutrition and states she spoke with a friend's Mom who is a Nutrionist. She states her insurance h as been vague about covering Eating disorder therapy. Review of Systems:Constitutional: negative except weight loss.Respiratory: negativeCardiovascular: negativeGastrointestinal: negativePsycho logical: admits to a poor relationship with food. OBJECTIVE: Vitals as noted. Patient is alert an d oriented and in NAD. No further exam done. ASSESSMENT/PLAN: 278.00 OBESITY NOS (primary encount er diagnosis)Note: Plan: Will refill Fastin for 3 more months and then she will continue with healt hy habits. She will have insurance call me to try to get her into eating d/o counseling. Call or re turn to clinic prn if these symptoms worsen or fail to improve as anticipated. Source: [facility] RWHXTRANSXSYS Document Id: [id number] documented in this encounter Plan of Treatment Not on filedocumented as of this encounter Visit Diagnoses Not on filedocumented in this encounter
--- OUTSIDE RECORDS SUMMARY | 2021-12-12 10:01 | XMS_ITS | Encounter Summary ---
:1975 Author Organization [facility] Address [address] [place] [address] Care Team Providers Name Role Phone Unavailable Primary Care Provider Unavailable Encounter Details Date Type Department Care Team Description 12/17/2001 Hospital Encounter HX [facility] Provider, [facility] Social History Tobacco Use Types Packs/Day Years Used Date Smoking Tobacco: Never Assessed Sex Assigned at Date Recorded Not on file documented as of this encounter Progress Notes Conversion, Historical Provider Ser - 12/17/2001 11:00 AM CST [id number] S: Mirella is a 26 year old female presenting for follow up on her depression medication. She was star won on Paxil in August and has had great improvement in her depression/anxiety symptoms. Her complaint is the sexual side effects of the Paxil. She is unable to obtain orgasm, and this was not a problem prior to starting the Paxil. Her is a truck mechanic apprentice and is on the road a lot and this has be come frustrating for both of them when he is home and they want to be romantic. She has not had any other problems with side effects. She still feels in the mood. No problems with arousal. Her insur ance does not cover mental health prescriptions so she has been trying to get samples or paying out o f pocket. She has about a week left on her current prescription. She had nasal surgery recently a nd forgot to take her Paxil while recooperating. She did feel the depression symptoms coming back on . She also noticed when she went about 3-4 days in a row without the medication, she would feel a li ttle dizzy.Medications are reviewed and as noted. Patient is compliant and denies side effect. O : Patient is alert and oriented and in no acute distress.Mental status: alert, appears in good spir its, cooperative, oriented X 3 and pleasantotherwise not examinedA: Depression with medication alessia e effectP: We discussed the different options to counteract this side effect: drug holiday for 2-3 days when her will be in town, adding another agent such as Wellbutrin or switching her meds completly. Because of the insurance issue, we agreed that adding another medication wouldn't be the best option. We discussed Paxil CR possibly having less side effect and that this sampled more often now than the regular Paxil. She was given 25 mg tabs and instructed to cut these in 1/2 and take da stacey. She can finish out her current tablets of the regular Paxil and then switch to the Paxil CR. S he could also try the drug holiday occasionally, just making sure that she starts the medication agai n if she gets the dizzy symptoms. Patient to follow up with how things are going by phone or an offi ce visit in 1-2 months. Total visit time with patient 15 minutes Source: [facility] RWHXTRANSXSYS Document Id: [id number] documented in this encounter Plan of Treatment Not on filedocumented as of this encounter Visit Diagnoses Not on filedocumented in this encounter
--- OUTSIDE RECORDS SUMMARY | 2021-12-12 10:01 | XMS_ITS | Encounter Summary ---
:1975 Author Organization [facility] Address [address] [place] [address] Care Team Providers Name Role Phone Unavailable Primary Care Provider Unavailable Encounter Details Date Type Department Care Team Description 02/06/2003 Hospital Encounter [facility] M.D. [address] [place] [address] (Wo rk) Social History Tobacco Use Types Packs/Day Years Used Date Smoking Tobacco: Never Assessed Sex Assigned at Date Recorded Not on file documented as of this encounter Miscellaneous Notes Telephone Encounter - Conversion, Historical Provider Ser - 02/06/2003 12:00 AM CST [id number] >> NIRALI VELIZ Fri Feb 06, 2003 2:07 PM Patient's request for a refill has been approved. Order entered - it has been faxed to pharmacy. >> BRIDGET BOATENG Fri Feb 06, 2003 1:54 PM >> CALL RECEIVED. Contact: fax/Phuc Sanz/MAL Accepting this rx will be faxed directly to pharmacy. Source: [facility] Document Id: [id number] documented in this encounter Plan of Treatment Not on filedocumented as of this encounter Visit Diagnoses Not on filedocumented in this encounter
--- OUTSIDE RECORDS SUMMARY | 2021-12-12 10:01 | XMS_ITS | Encounter Summary ---
:1975 Author Organization [facility] Address [address] [place] [address] Care Team Providers Name Role Phone Unavailable Primary Care Provider Unavailable Encounter Details Date Type Department Care Team Description 09/30/2001 Hospital Encounter [facility] Nirali Valentine M.D. [address] [place] [address] (Wo rk) Social History Tobacco Use Types Packs/Day Years Used Date Smoking Tobacco: Never Assessed Sex Assigned at Date Recorded Not on file documented as of this encounter Progress Notes Conversion, Historical Provider Ser - 09/30/2001 10:45 AM CDT [id number] SUBJECTIVE: Mirella is a 26 year old female who presents complains of depressive symptoms. .fnamel cont inues to notice decreased appetite and weight loss. Denies depressed mood, anhedonia, insomnia, hype rsomnia, easily tearful and poor concentration. No suicidal ideation. Patient does have supportive f riends and family. To date, Paxil has worked best for this patient. Psychologist: none. Meds as o f 09/30/2001:MINNIE 60 MG OR CAPS, 1 caps twice daily, D: 60, R: 5ADVAIR DISKUS 250-50 MCG/DOSE IN MISC, 1 puff BID, D: 1, R: 11PAXIL 20 MG OR TABS, 1 TABLET EVERY MORNING, D: 30, R: 0TYLENOL 325 MG OR TABS, 2 TABLETS EVERY 4 HOURS NEEDED, D: 100, R: 0ALBUTEROL-IPRATROPIUM 103-18 MCG/ACT IN AER O, 2 puffs prn, D: 1, R: 5OBJECTIVE: Vitals as noted. Patient is alert and oriented and in NAD. Psych: normal affect and mood. Patient answers questions appropriately. Patient is not tearful. A & O x 3. ASSESSMENT: Depression without signs of suicidal risk.PLAN: Medication changes tanvir rders. Continue other therapy modes. Follow up in 6 months or sooner prn. Crisis plan discussed. 15 minutes spent [id number] with the patient. Source: [facility] Document Id: [id number] documented in this encounter Plan of Treatment Not on filedocumented as of this encounter Visit Diagnoses Not on filedocumented in this encounter
--- OUTSIDE RECORDS SUMMARY | 2021-12-12 10:01 | XMS_ITS | Encounter Summary ---
:1975 Author Organization [facility] Address [address] [place] [address] Care Team Providers Name Role Phone Unavailable Primary Care Provider Unavailable Encounter Details Date Type Department Care Team Description 11/02/2000 Hospital Encounter HX NO MAPPING Provider, Historical Social History Tobacco Use Types Packs/Day Years Used Date Smoking Tobacco: Never Assessed Sex Assigned at Date Recorded Not on file documented as of this encounter Plan of Treatment Not on filedocumented as of this encounter Visit Diagnoses Not on filedocumented in this encounter
--- OUTSIDE RECORDS SUMMARY | 2021-12-12 10:01 | XMS_ITS | Encounter Summary ---
:1975 Author Organization [facility] Address [address] [place] [address] Care Team Providers Name Role Phone Unavailable Primary Care Provider Unavailable Encounter Details Date Type Department Care Team Description 10/29/2001 Hospital Encounter [facility]X [facility] Nirali Valentine M.D. [address] [place] [address] (Wo rk) Social History Tobacco Use Types Packs/Day Years Used Date Smoking Tobacco: Never Assessed Sex Assigned at Date Recorded Not on file documented as of this encounter Progress Notes Conversion, Historical Provider Ser - 10/29/2001 4:00 PM CDT [id number] see letter template for preopPreop to be faxed to [phone] Source: [facility] Document Id: [id number] documented in this encounter Miscellaneous Notes Miscellaneous - Nirali Burrell M.D. - 10/29/2001 4:00 PM CDT [id number] . HISTORY & PHYSICAL Mirella Edwards : 1975 HPI: Mirella is a 26 year old female I have been asked to see in consult from Dr. Rolan Manriquez [facility] for pre-anesthesia evaluation for upcoming nasal polypectomy due to her history of asthma. NASAL POLYPS: Noted 2 weeks ago by exam and f/u CT showed several bilateral polyps. No other chronicor recurrent sinus problems or epistaxis. No pain associated with it. ASTHMA: Mirella notes the following symptoms: negative for cough and wheezing. The symptoms have been stable for several month(s). Currently uses albuterol and advair inhalers and antihistamine. Albuterol use averages <1-2 times daily. Patient does not use tobacco. PMH: Review of patient's past medical history indicates: RW RESPIRATORY (ABSTRACTED) Comment: Hx of mild asthma CHRONIC RHINITIS PSH: Review of patient's past surgical history indicates: LAPAROSCOPY, SURGICAL; CHOLECYSTECTOMY 01/11/98 Comment: Lap. cholecystectomy; final dx: Biliary colic, IUP at 21.5 wks LIGATE FALLOPIAN TUBE 05/07/00 Comment: [place] tubal ligation MEDS: Current prescriptions: FLONASE INHA 50 MCG/DOSE NA, 2 sprays each nostril once daily, D: 1, R: 5 ZYRTEC 10 MG OR TABS, ? dose, D: 30, R: 0 PAXIL 20 MG OR TABS, 1 TABLET EVERY MORNING, D: 30, R: 6 ADVAIR DISKUS 250-50 MCG/DOSE IN MISC, 1 puff BID, D: 1, R: 11 TYLENOL 325 MG OR TABS, 2 TABLETS EVERY 4 HOURS NEEDED, D: 100, R: 0 ALBUTEROL-IPRATROPIUM 103-18 MCG/ACT IN AERO, 2 puffs prn, D: 1, R: 5 ALLERGIES: Codeine, Seasonal Allergies SOCIAL HISTORY: Tobacco Use: Never Alcohol Use: Yes FAMILY HISTORY: Review of patient's family history indicates: Anesthesia No family hx of Blood Disease No family hx of Cancer No family hx of Comment: breast or colon Review of Systems: Constitutional: negative Eyes: contacts ENT: as above Resp: asthma and allergies CV: negative GI: negative : negative Musc-Skel: negative Skin: negative Hem/Lymph: negative anemia or bleeding disorder Neuro: negative Endo: negative Psych: depression Medical record reviewed and summarized above. OBJECTIVE: Vitals as noted. Patient is alert and oriented and in NAD. Eyes: PERRLA. EOMI. Normal funduscopic exam. ENT: Normal TMs and external auditory canals. Oropharynx without erythema or exudates.Moist. Nares patent. Neck: Thyroid not enlarged and without nodules. Supple. No carotid bruits. No carotid bruits. Lungs: normal respiratory effort. CTA bilaterally. Cardiac: RRR, normal S1, S2 withoutmurmurs, gallops or rubs. No edema, cyanosis. GI: Active bowel sounds. Soft, NT/ND. No HSM, bruits or palpable masses. Lymphatics: No cervical, supraclavicular, inguinal or axillary adenopathy. Neuro: Cranial nerves II-XII grossly intact. 2+ DTRs, 5/5 motor strength. Sensation intact. No focal deficits . Skin: Warm, dry, intact without lesions. EKG: not done CXR: not done Labs: INR 0.99 10/29/2001 PT 11.1 10/29/2001 PTT 32.3 10/29/2001 WBC 8.10 10/29/2001 HGB 12.5 10/29/2001 normal female 12-16, normal male 13-18 HCT 36.5 10/29/2001 NA 140 10/29/2001 normal sodium 136-148 POTASSIUM 4.1 10/29/2001 normal potassium 3.5-5.2 CHLORIDE 103 10/29/2001 normal chloride 94-109 CO2 29 10/29/2001 normal CO2 20-32 BUN 9 10/29/2001 normal BUN 5-24 GLC 91 10/29/2001 normal glucose 60-115 (fasting) CR 0.9 10/29/2001 normal cr(kidney) 0.8-1.5 CACHORRO 8.8 10/29/2001 normal calcium 8.5-10.4 A: 471.0 POLYP OF NASAL CAVITY (primary encounter diagnosis) 493.00 ASTHMA W/O STAT ASTHMATICUS P: ASA class I No evidence of functionally compromising cardiac or pulmonary status Clear for anesthesia and surgery I recommend pre-op and post-op albuterol unit kourtney Burrell M.D. October 29, 2001 Source: [facility] Document Id: [id number] documented in this encounter Plan of Treatment Not on filedocumented as of this encounter Visit Diagnoses Not on filedocumented in this encounter
--- OUTSIDE RECORDS SUMMARY | 2021-12-12 10:01 | XMS_ITS | Encounter Summary ---
:1975 Author Organization [facility] Address [address] [place] [address] Care Team Providers Name Role Phone Unavailable Primary Care Provider Unavailable Encounter Details Date Type Department Care Team Description 06/12/2000 Hospital Encounter [facility] Deshaun Ayala M.D. Social History Tobacco Use Types Packs/Day Years Used Date Smoking Tobacco: Never Assessed Sex Assigned at Date Recorded Not on file documented as of this encounter Plan of Treatment Not on filedocumented as of this encounter Visit Diagnoses Not on filedocumented in this encounter
--- OUTSIDE RECORDS SUMMARY | 2021-12-12 10:01 | XMS_ITS | Encounter Summary ---
:1975 Author Organization [facility] Address [address] [place] [address] Care Team Providers Name Role Phone Unavailable Primary Care Provider Unavailable Encounter Details Date Type Department Care Team Description 06/18/2000 Hospital [facility] Deshaun Ayala M.D. Social History Tobacco Use Types Packs/Day Years Used Date Smoking Tobacco: Never Assessed Sex Assigned at Date Recorded Not on file documented as of this encounter Plan of Treatment Not on filedocumented as of this encounter Visit Diagnoses Not on filedocumented in this encounter
--- OUTSIDE RECORDS SUMMARY | 2021-12-12 10:01 | XMS_ITS | Encounter Summary ---
:1975 Author Organization [facility] Address [address] [place] [address] Care Team Providers Name Role Phone Unavailable Primary Care Provider Unavailable Encounter Details Date Type Department Care Team Description 05/09/2000 Hospital Encounter HX [facility] Arlin Gonzalez M.D. [address] [place] [address] (Wo rk) Social History Tobacco Use Types Packs/Day Years Used Date Smoking Tobacco: Never Assessed Sex Assigned at Date Recorded Not on file documented as of this encounter Progress Notes Conversion, Historical Provider Ser - 05/09/2000 1:20 PM CDT [id number] Mirella Edwards is post- day 3 with complaints of possible blood in urine but no dysuria or freq uency. Also perineal itching.OBJECTIVE: Pelvic:External genitalia with erythema. Vagina with wh ite discharge. Cervix not friable. Perineum healing well with no discharge or erythema. Uterus at U/ 2 and nontender.Wet prep: yeastASSESSMENT:Vaginitis - monilial vulvo- vaginitisPLAN:1) Diflu can2) Recheck if symptoms persist, worsen, or new symptoms develop.PE: Discussed vaginitis, modes of transmission, and rationale for treatment. UA: Unremarkable with probable contaimination - stewart l culture. Source: [facility] Document Id: [id number] documented in this encounter Plan of Treatment Not on filedocumented as of this encounter Visit Diagnoses Not on filedocumented in this encounter
--- OUTSIDE RECORDS SUMMARY | 2021-12-12 10:01 | XMS_ITS | Encounter Summary ---
:1975 Author Organization [facility] Address [address] [place] [address] Care Team Providers Name Role Phone Unavailable Primary Care Provider Unavailable Encounter Details Date Type Department Care Team Description 11/02/2000 Hospital Encounter HX [facility] Nirali Valentine M.D. [address] [place] [address] (Wo rk) Social History Tobacco Use Types Packs/Day Years Used Date Smoking Tobacco: Never Assessed Sex Assigned at Date Recorded Not on file documented as of this encounter Progress Notes Conversion, Historical Provider Ser - 11/02/2000 4:30 PM CDT [id number] SUBJECTIVE: Mirella is a 25 year old female who presents complaining of the following allergy symptoms: clear nasal drainage, post nasal drainage, itchy, watery eyes, sneezing and wheezing. These sympto ms are noted to occur primarily all year round. Patient has tried Claritin, Gayathri and Zyrtec. Kamila ruckersupriya has history of asthma. Patient does not smoke cigarettes.Also complains of left ankle pain sin ce twisting it 4 months ago. Initially had an abrasion which is well healed. OBJECTIVE: Vitals as noted. Patient is alert and oriented and in NAD. Eyes: normal. Nose: clear rhinorrhea. Ears: TM's clear bilaterally. Oropharynx: No erythema or exudates. Neck: No adenopathy. Lungs: clear to as cultation all valdez. Skin: No rashes or lesions. ASSESSMENT: Allergic Rhinnitis.Left foot erika mere and strain.PLAN: Discussed avoidance of triggers. Start Claritin, albuterol on a prn basis. Follow up prn. If symptoms are not controlled, will consult User Interface Developer. Reassurance regarding ankle a nd will continue rehab. Source: [facility] RWHXTRANSXSYS Document Id: [id number] documented in this encounter Plan of Treatment Not on filedocumented as of this encounter Visit Diagnoses Not on filedocumented in this encounter
--- OUTSIDE RECORDS SUMMARY | 2021-12-12 10:01 | XMS_ITS | Encounter Summary ---
:1975 Author Organization [facility] Address [address] [place] [address] Care Team Providers Name Role Phone Unavailable Primary Care Provider Unavailable Encounter Details Date Type Department Care Team Description 10/01/2003 Hospital Encounter HX [facility] Ra jesse Light, P.A.-C. [address] [place] [address] (Wo rk) Social History Tobacco Use Types Packs/Day Years Used Date Smoking Tobacco: Never Assessed Sex Assigned at Date Recorded Not on file documented as of this encounter Miscellaneous Notes Telephone Encounter - Conversion, Historical Provider Ser - 10/01/2003 12:00 AM CDT [id number] >> MAXINE Zaragoza Oct 01, 2003 2:51 PM >> CALL RECEIVED. Contact: Source[facility] Document Id: [id number] documented in this encounter Plan of Treatment Not on filedocumented as of this encounter Visit Diagnoses Not on filedocumented in this encounter
--- OUTSIDE RECORDS SUMMARY | 2021-12-12 10:01 | XMS_ITS | Encounter Summary ---
:1975 Author Organization [facility] Address [address] [place] [address] Care Team Providers Name Role Phone Unavailable Primary Care Provider Unavailable Encounter Details Date Type Department Care Team Description 07/01/2002 Hospital Encounter HX [facility] Nirali Valentine M.D. [address] [place] [address] (Wo rk) Social History Tobacco Use Types Packs/Day Years Used Date Smoking Tobacco: Never Assessed Sex Assigned at Date Recorded Not on file documented as of this encounter Miscellaneous Notes Telephone Encounter - Conversion, Historical Provider Ser - 07/01/2002 12:00 AM CDT [id number] >> ADALBERTO HILL SunJuly 01, 2002 11:52 AM >> COMPLETED ON SunJuly 01, 2002 11:55 AM Accepting this rx will be faxed directly to pharmacy.Pt calling and needing refill of allergy med could you assist in Dr Dennis winslow , she states she uses [facility] Source: [facility] Document Id: [id number] documented in this encounter Plan of Treatment Not on filedocumented as of this encounter Visit Diagnoses Not on filedocumented in this encounter
--- OUTSIDE RECORDS SUMMARY | 2021-12-12 10:01 | XMS_ITS | Encounter Summary ---
:1975 Author Organization [facility] Address [address] [place] [address] Care Team Providers Name Role Phone Unavailable Primary Care Provider Unavailable Encounter Details Date Type Department Care Team Description 05/06/2000 - Hospital Encounter HX NO MAPPING Deshaun Goins, 05/08/2000 Dave Social History Tobacco Use Types Packs/Day Years Used Date Smoking Tobacco: Never Assessed Sex Assigned at Date Recorded Not on file documented as of this encounter Plan of Treatment Not on filedocumented as of this encounter Visit Diagnoses Not on filedocumented in this encounter
--- OUTSIDE RECORDS SUMMARY | 2021-12-12 10:01 | XMS_ITS | Encounter Summary ---
:1975 Author Organization [facility] Address [address] [place] [address] Care Team Providers Name Role Phone Unavailable Primary Care Provider Unavailable Encounter Details Date Type Department Care Team Description 04/17/2002 Hospital Encounter HX [facility] Nirali Valentine M.D. [address] [place] [address] (Wo rk) Social History Tobacco Use Types Packs/Day Years Used Date Smoking Tobacco: Never Assessed Sex Assigned at Date Recorded Not on file documented as of this encounter Progress Notes Conversion, Historical Provider Ser - 04/17/2002 2:45 PM CST [id number] SUBJECTIVE: Mirella is a 26 year old female who presents to discuss weight issues. WEIGHT CONCERNS: Bhargav bella is concerned about her weight gain of 60+ lbs over the years since having her children. She att ributes it to having kids, not eating in moderation and on/off exercise. She states I'm addicted to food. She does not follow a healthy, reasonable diet. Exercise: +/-. Also notes fatigue. Denie s sleep problems, bowel changes, skin changes and palpitations. Inquires about Fastin options. She h as used Xenical, Dexatrim, and Metabolife in addition to diets.OBJECTIVE: Vitals as noted. Patient is alert and oriented and in NAD. Pleasant female of large habitus. No further exam done today. SESSMENT/PLAN: 278.00 OBESITY NOS (primary encounter diagnosis)Note: She does not think her insura nce will pay for Eating disorder counseling.Plan: CONSULT TO NUTRITION (RW) Try 3 months of Fa stin and she will work on eating habits and exercise. Discussed side effects and patient has already looked them up. F/u in 3 months to readdress. 20 minutes spent in counseling. Source: [facility] RWHXTRANSXSYS Document Id: [id number] documented in this encounter Plan of Treatment Not on filedocumented as of this encounter Visit Diagnoses Not on filedocumented in this encounter
[2021-12-12 13:57] LABS: Basophils Absolute Auto 0.05 K/uL (0.00-0.30); Basophils Percent Auto 0.6 % (0.0-3.0); Eosinophils Absolute Auto 0.24 K/uL (0.00-0.50); Eosinophils Percent Auto 2.9 % (0.0-7.0); Hematocrit 43.5 % (33.0-51.0); Hemoglobin* 14.1 gm/dL (12.0-16.0); Immature Granulocytes Abs Auto 0.01 K/uL (0.00-0.30); Immature Granulocytes Pct Auto 0.1 %; Lymphocytes Absolute Auto 1.92 K/uL (0.90-2.90); Lymphocytes Percent Auto 23.3 % (20-44); Mean Corpuscular HGB Conc 32 gm/dL (32-36); Mean Corpuscular Hemoglobin 30 pg (26-34); Mean Corpuscular Volume 92 fL (80-100); Monocytes Percent Auto 6.5 % (0.0-11.0); Neutrophils Absolute Auto 5.49 K/uL (1.7-7.0); Neutrophils Percent Auto 66.6 % (42.0-72.0); Platelet Count* 374 K/uL (140-440); Red Blood Count 4.72 m/uL (4.00-5.20); White Blood Count* 8.25 K/uL (4.50-11.00)
[2021-12-12 14:01] LABS: Slide Review Reflex No
== END 2021-12-12 09:53 | disposition home or self-care (01) ==
PROVIDERS: PCP Nurse Practitioner Family; Visit Provider Nurse Practitioner Family
DX: N93.8 Other specified abnormal uterine and vaginal bleeding (principal)
CPT/HCPCS: 36415; 84443; 85025; 87086; 87624; 88175

== ENCOUNTER 2021-12-21 09:41 | Outpatient (CLI) | payer BC, SELFPAY ==
--- NOTE | 2021-12-21 09:45 | CRLHL7_ITS ---
For Patients: As a result of the Century Cures Act, medical imaging exams and procedure reports are released immediately into your electronic medical record. You may view this report before your referring provider. If you have questions, please contact your health care provider. INDICATION: ABNORMAL UTERINE BLEEDING COMPARISON: none TECHNIQUE: 2D ardon scale and color Doppler images were acquired of the pelvis using a transabdominal and transvaginal approach. FINDINGS: Sonographic images demonstrate a normal size and smooth outer contour of the uterus. Uterus measures 10.5 cm in length by 4.2 cm in AP diameter by 5.4 cm in transverse dimension. The myometrium has a normal uniform echotexture. Intrauterine device is located within the endometrial canal. The endometrium is heterogeneous and thickened with mildly increased vascularity, measuring up to 2.1 cm. The right ovary measures 5.7 x 1.3 x 2.6 cm in size and the left ovary measures 3.7 x 1.8 x 2.9 cm. The ovaries demonstrate normal arterial and venous blood flow on color Doppler analysis. 1.5 cm hypoechoic nodule right ovary. There are no suspicious fluid collections within the cul-de-sac. IMPRESSION: IUD in good position within the endometrial canal. The adjacent endometrium is thickened and heterogeneous with mildly increased vascularity. The endometrium measures up to 2.1 cm. Hypoechoic nodule arising from the right ovary measuring 1.5 cm. This may simply represent a small hemorrhagic cyst. Follow-up in 2-3 months suggested. Dictated by Maurice Contreras MD @ 12/21/2021 11:11:49 AM (Electronically Signed)
== END 2021-12-21 09:42 | disposition home or self-care (01) ==
LOC: US 09:42
PROVIDERS: PCP Nurse Practitioner Family; Visit Provider Nurse Practitioner Family
DX: N93.8 Other specified abnormal uterine and vaginal bleeding (principal); R93.89 Abnormal findings on diagnostic imaging of other specified body structures
CPT/HCPCS: 76830; 76856

== ENCOUNTER 2022-01-12 16:22 | Outpatient (CLI) | payer BC, SELFPAY ==
--- OUTSIDE RECORDS SUMMARY | 2022-01-12 16:24 | XMS_ITS | Encounter Summary ---
:1975 Author Organization [facility] Address [address] [place] [address] Care Team Providers Name Role Phone Lee Hannon MD Primary Care Provider Encounter Details Date Type Department Care Team Description 05/06/2020 Orders Only Family Med Lee Hannon MD [address] [facility] [address] [place] [address] [place] [phone] [place] [address] (Wo rk) Social History Tobacco Use Types Packs/Day Years Used Date Smoking Tobacco: Never Smokeless Tobacco: Never Alcohol Use Standard Drinks/Week Comments Never 0 [...] t asked Sex Assigned at Date Recorded Female 04/13/2021 4:03 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
--- OUTSIDE RECORDS SUMMARY | 2022-01-12 16:24 | XMS_ITS | Encounter Summary ---
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 rOPINIRole (REQUIP) 1 MG tablet [Pharmacy Med Name: ROPINIROLE HCL 1MG TABS] 90 tablet 3 Sig: TAKE ONE TABLET BY MOUTH AT NIGHT FOR RESTLESS LEG SYNDROME E-Prescribing Status: Receipt confirmed by pharmacy (05/25/2020 ??5:39 PM CDT) OGRAPHIC PHOTOGRAPHER APPRENTICE documented in this encounter Plan of Treatment Not on filedocumented as of this encounter Visit Diagnoses Diagnosis Restless legs Restless legs syndrome (RLS) documented in this encounter Care Teams Fire Alarm Dispatcher Relationship Specialty Start Date End Date Benito Leonardo MD PCP - General 11/17/[address] [place] [address] documented as of this encounter
--- OUTSIDE RECORDS SUMMARY | 2022-01-12 16:24 | XMS_ITS | Encounter Summary ---
:[address] 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
--- OUTSIDE RECORDS SUMMARY | 2022-01-12 16:24 | XMS_ITS | Encounter Summary ---
:1975 Author Organization [facility] Address [address] [place] [address] Care Team Providers Name Role Phone Lee Hannon MD Primary Care Provider Reason for Visit Reason Onset Date Comments RX 05/12/2020 Encounter Details Date Type Department Care Team Description 05/12/2020 Telephone JenkinsJoseph Ash MD RX [address] [place], [place] [address] [place], [place] [phone] [address] (Wo rk) Social History Tobacco Use Types [...] at Date Recorded Female 04/13/2021 4:03 PM HARM REDUCTION WORKER documented as of this encounter Miscellaneous Notes Telephone Encounter - Maty Barbour RN - 05/12/2020 1:57 PM CDT Patient informed. Telephone Encounter - Joseph Guevara MD - 05/12/2020 12:32 PM CDT I reviewed Nando's notations and did not see nothing specific other than the fact that she does haveseasonal allergies. However I did send him to [facility] for Medrol Dosepak and 1 refill. [...] is requesting RX for prednisone sent to [facility] for her allergies. Please advise. documented in this encounter Plan of Treatment Not on filedocumented as of this encounter Visit Diagnoses Diagnosis Seasonal allergies - Primary Allergic rhinitis, cause unspecified documented in this encounter Care Teams Registry Np Relationship Specialty Start Date End Date Lee Hannon MD PCP - General Family Medicine 02/26/20 03/20/[address] [place] [address] documented as of this encounter
--- OUTSIDE RECORDS SUMMARY | 2022-01-12 16:24 | XMS_ITS | Clinical Summary ---
:1975 Author Organization [facility] Address [address] [place] [address] Care Team Providers Name Role Phone Benito [...] 11/22/2021 Telephone Family Medicine Lee Hannon MD venlaf axine XR (EFFEXOR-XR) 15 0 MG 24 [...] at Date Recorded Female 04/13/2021 4:03 PM ENGINEERING CONSULTANT Last Filed Vital Signs Vital Sign Reading [...] 1975 iFOBT 1975 COVID-19 Vaccine (#1) 02/10/1976 Pap Smear 11/30/2022 12/01/2019, 05/05/2015 DTaP,Tdap,and Td Vaccines (2 - 09/21/2027 09/20/2017, Td or Tdap) 04/11/2006 HPV Vaccines Aged Out No longer eligib le based on patient's age to complete this to pic Pneumococcal Vaccine: Aged Out No longer eligible based Pediatrics (0 to 5 Years) and on patient's age to At-Risk Patients (6 to 64 comple te this topic Years) Insurance Payer Benefit Plan / Subscriber ID Effective Dates Phone Addre ss Type Group BCBS OF BCBS OF [id number] 2017[place] [address] [place] [address] Care Teams Franchise Sales Manager Relationship Specialty Start Date End Date Benito Leonardo MD PCP - General 11/17/[address] [place] [address]
--- OUTSIDE RECORDS SUMMARY | 2022-01-12 16:24 | XMS_ITS | Encounter Summary ---
:1975 Author Organization [facility] Address [address] [place] [address] Care Team Providers Name Role Phone Benito Leonardo MD Primary Care Provider Reason for Visit Reason Onset Date Comments venlafaxine XR (EFFEXOR-XR) 150 MG 24 hr capsule 11/22/2021 Encounter Details Date Type Department Care Team Description 11/22/2021 Telephone RichieLee Aguirre MD venlafaxine XR [address] [place] [address] (EFFEXOR-XR) 150 MG [address] [place] [address] Drive [address] hr capsule [phone] [place] [address] Social History Tobacco Use Types [...] at Date Recorded Female 04/13/2021 4:03 PM SUPERVISOR CORDUROY CUTTING documented as of this encounter Miscellaneous Notes Telephone Encounter - Rachael Rene MA - 11/28/2021 5:22 AM CDT PA approved from 11/26/2021 - 11/26/2022. Pharmacy notified. ANH # [id number]. Telephone Encounter - Malgorzata Lu LPN - 11/22/2021 2:42 PM CDT venlafaxine XR (EFFEXOR-XR) 150 MG 24 hr capsule BIN: [id number] PCN: [facility]: PLAN: [place] Medicaid PHONE: [phone] ID: [id number] PA completed per CM, sent to insurance plan [place]: [id number] - [place] - Rx #: [id number] documented in this encounter Plan of Treatment Not on filedocumented as of this encounter Visit Diagnoses Not on filedocumented in this encounter Care Teams Nutritionalist Relationship Specialty Start Date End Date Benito Leonardo MD PCP - General 11/17/[address] [place] [address] documented as of this encounter
--- OUTSIDE RECORDS SUMMARY | 2022-01-12 16:24 | XMS_ITS | Encounter Summary ---
:1975 Author Organization [facility] Address [address] [place] [address] Care Team Providers Name Role Phone Lee Hannon MD Primary Care Provider Reason for Visit Reason Onset Date Comments Med Refill 03/10/2020 Encounter Details Date Type Department Care Team Description 03/10/2020 Refill [facility] Derrick Car Operator [address] [place] [address] [place] [address] [place], [place] [address] [phone] Social History Tobacco Use Types Packs/Day Years [...] at Date Recorded Female 04/13/2021 4:03 PM COMPENSATION COORDINATOR documented as of this encounter Miscellaneous Notes Telephone Encounter - Maty Barbour RN - 03/11/2020 11:13 AM CST Please review request patient used to see Katty Rojas. ENSATION COORDINATOR Telephone Encounter - Marleen Bond - 03/11/2020 10:57 AM CST Patient is requesting this today please. She is out. ENSATION COORDINATOR Telephone Encounter - Vania Ramos LPN - 03/10/2020 3:40 PM COMPENSATION COORDINATOR Last visit in provider department: 02/26/2020 Last [...] with food. 02/13/20 PHQ9- 10 GAD7- 15 ENSATION COORDINATOR documented in this encounter Plan of Treatment Not on filedocumented as of this encounter Visit Diagnoses Diagnosis Anxiety Anxiety state, unspecified documented in this encounter Care Teams Procurement Technician Relationship Specialty Start Date End Date Lee Hannon MD PCP - General Family Medicine 02/26/20 03/20/[address] [place] [address] documented as of this encounter
--- OUTSIDE RECORDS SUMMARY | 2022-01-12 16:24 | XMS_ITS | Encounter Summary ---
:[address] [facility] Address [address] [place] [address] Care Team Providers Name Role Phone Lee Hannon MD Primary Care Provider Reason for Visit Reason Onset Date Comments Ropinirole refill 03/19/2020 Encounter Details Date Type Department Care Team Description 03/19/2020 Telephone [place] None, Pcp Ropinirole refill [address] [place], [place] [address] [place], [place] [phone] [address] Social History Tobacco Use Types Packs/Day [...] at Date Recorded Female 04/13/2021 4:03 PM INSERTING MACHINE OPERATOR documented as of this encounter Miscellaneous Notes Telephone Encounter - Joseph Guevara MD - 03/19/2020 5:27 PM CST I called and talked to Mirella and sent in the RX RTING MACHINE OPERATOR Telephone Encounter - Maty Barbour RN - 03/19/2020 4:02 PM CST Please review request, patient has not been seen in [place] since 02/2019, last evaluated in OBGYN. RTING MACHINE OPERATOR Telephone Encounter - Trang Ivan - 03/19/2020 3:39 PM CST Pt called stating she had contacted her pharmacy [facility] last week to have her Ropinirole refilled and they have not heard anything back yet. Please call Pt at [phone] to advise. RTING MACHINE OPERATOR documented in this encounter Plan of Treatment Not on filedocumented as of this encounter Visit Diagnoses Diagnosis Restless legs Restless legs syndrome (RLS) documented in this encounter Care Teams Green Chain Operator Relationship Specialty Start Date End Date Lee Hannon MD PCP - General Family Medicine 02/26/20 03/20/[address] [place] [address] documented as of this encounter
--- OUTSIDE RECORDS SUMMARY | 2022-01-12 16:24 | XMS_ITS | Encounter Summary ---
:1975 Author Organization [facility] Address [address] [place] [address] Care Team Providers Name Role Phone Benito Leonardo MD Primary Care Provider Reason for Visit Reason Comments Med Refill Encounter Details Date Type Department Care Team Description 06/06/2021 Refill [facility] Chelle Jacques MD Palpitations [address] [place] [address] [place] [address] [place] [address] [phone] (Wo rk) Social History Tobacco Use Types [...] at Date Recorded Female 04/13/2021 4:03 PM FARM TRACTOR MECHANIC documented as of this encounter Miscellaneous [...] verapamil SR (CALAN-SR) 120 MG CR tablet [[id number]] ?? Order Details Dose, Route, Frequency: As Directed Dispense Quantity: 100 tablet Refills: 1 ?? Sig: TAKE 1 TABLET BY MOUTH EVERY NIGHT. DO NOT CRUSH OR CHEW ?? Start Date: 03/15/21 End Date: -- Written Date: 03/15/21 Expiration Date: 03/15/22 E-prescribed to requesting pharmacy, [facility] - [place], [place] - [address] [place] [address], E-Prescribing Status: Receipt confirmed by pharmacy (03/15/2021 ??2:13 PM FARM TRACTOR MECHANIC) Refill available at requesting pharmacy. Pharmacy notified. documented in this encounter Plan of Treatment Not on filedocumented as of this encounter Visit Diagnoses Diagnosis Palpitations documented in this encounter Care Teams Syrup Maker Relationship Specialty Start Date End Date Benito Leonardo MD PCP - General 11/17/[address] [place] [address] documented as of this encounter
--- OUTSIDE RECORDS SUMMARY | 2022-01-12 16:24 | XMS_ITS | Encounter Summary ---
:1975 Author Organization [facility] Address [address] [place] [address] Care Team Providers Name Role Phone Lee Hannon MD Primary Care Provider Reason for Visit Reason Onset Date Comments increase dose on the ropinirole 05/25/2020 Encounter Details Date Type Department Care Team Description 05/25/2020 Telephone Joseph Washington increase dose on the [address] [address] MD Elijah ropinirole [place], [place] [id number] [place] [address] [place] [address] Social History Tobacco Use Types Packs/Day Years [...] at Date Recorded Female 04/13/2021 4:03 PM DEVIL DOG documented as of this encounter Miscellaneous Notes [...] a refill for the increased dose to [facility] pharmacy? Please advise. documented in this encounter Plan of Treatment Not on filedocumented as of this encounter Visit Diagnoses Diagnosis Restless legs Restless legs syndrome (RLS) documented in this encounter Care Teams Valve Setter Relationship Specialty Start Date End Date Lee Hannon MD PCP - General Family Medicine 02/26/[address] [place] [address] documented as of this encounter
--- OUTSIDE RECORDS SUMMARY | 2022-01-12 16:24 | XMS_ITS | Clinical Summary ---
:1975 Author Organization [facility] [place] [address] Care Team Providers Name Role Phone Katty Rojas RECEPTION INTERVIEWER Primary Care Provider Unavailable Benito Galvez MD Unavailable [phone] Zoie Burrell RN Unavailable Allergies Active [...] Payor: BLUE CROSS / Plan: BLUE CROSS [facility] / Product Type: *No Product type* / Est. Pgm Completion: October, Procedure Location: [facility] Co-morbidities: To be determined Orders: Labs Yes [...] with BMI of 50.0-59.9, adult 03/15/2017 03/28/2018 Encounters Date Type Specialty Care Team Description 01/03/2022 Lab Requisition Aleena De Souza MD 12/13/2021 Lab Requisition Katty Rojas NP from Last 3 Months Family History Medical History Relation Name Comments [...] CDT Respiratory Rate 18 03/28/2018 9:00 AM GAS METER CHECKER Oxygen Saturation 100% 09/27/2017 7:30 AM CDT Inhaled Oxygen Concentration - - Weight 112.5 kg (248 lb) 09/26/2019 12:00 PM CDT Height 160 cm (5' 2.99) 09/26/2019 12:00 PM CDT Body Mass Index 43.94 09/26/2019 12:00 PM CDT Plan of Treatment Health Maintenance Due Date Last Done Comments COVID-19 vaccine series (#1) 02/10/1976 Tdap 08/09/1986 Depression screening for age 12+ 1987 HIV for age 15-65 08/09/1990 Hepatitis C screening for age 0708/09/1993 18-79 Tetanus booster 1995 Pap test for age 21-65 08/09/1996 12/12/2021, 12/12/2021 Colonoscopy through age 75 08/09/2020 Lipids for age 45-75 08/09/2020 Mammogram for age 45-75 08/09/2020 BMI (ht and wt on same day) for 09/25/2020 09/26/2019, 07/2018, age 18+ 10/11/2018, Additional history exists Influenza for age 9-49 10/06/2021 Medical Devices Implanted Type Area Annual Campaign Manager Device Shelf Model / Identifier Expiration Serial / Date Lot Mesh Ventral 60 Seamguard [place] Flex - [id number] N/A: W.Teri Aniwa And 04/04/2020 [id number] / Implanted: Qty: 5 on 09/26/2017 by Benito Marin MD at [facility] / [id number] Procedures Procedure Name Priority Date/Time Associated Diagnosis Comme nts LAB TRACKING EVENT Routine 01/02/2022 3:59 PM GAS METER CHECKER PATH TISSUE EXAM Routine 01/02/2022 3:59 PM Resul ts for this GAS METER CHECKER procedure are i n the results section. LAB TRACKING EVENT Routine 12/12/2021 10:07 AM GAS METER CHECKER SERVICES REP THIN PREP PAP Routine 12/12/2021 10:07 AM Res ults for this SCREEN IMAGED GAS METER CHECKER procedure are in the results section. HPV THIN PREP Routine 12/12/2021 10:07 AM Results for this GAS METER CHECKER procedure are i n the results section. from Last 3 Months Results LAB TRACKING EVENT (01/02/2022 3:59 PM GAS METER CHECKER)Only the most recent of2 results within the time period is included. Specimen Anatomical Collection Method Collection Time Receive d Time (Source) Location / / Volume Laterality Other (Other) Client Collect / 01/02/2022 3:59 PM 12/07 5:42 Unknown GAS METER CHECKER PM GAS METER CHECKER Aleena De Souza MD LAB BILL ONLY Performing Organization Address City/State/ZIP Code Phon e Number [facility] [address] [place] [address] LABORATORY-CENTRAL 2000 LABORATORY PATH TISSUE EXAM (01/02/2022 3:59 PM GAS METER CHECKER) Component Value Ref Test Analysis Performed At [facility] gist Range Method Time Signature Case Report Pathology Report ?Case: [id number] ? 01/05/2022 CAN Authorizing Provider: ??Unkn own, Doctor ?Collected: ? 01/02/2022 1559 ? 11:26 AM HEAL TH Ordering Location: ? [facility] CENTRAL LAB ?Received: ?01/03/20222110 ? GAS METER CHECKER ANNE CROOKS-C Pathologist: ? Malvin Farrar MD ? ENTRAL Specimen: ?Uterine ? LABORATORY Final A) ENDOMETRIUM, CURETTAGE: 01/05/2022 DANIEL AVILA Electronically Diagnosis 1. Inactive endometrium with pseudodecidual changes 11:26 AM HEALTH signed by Charan, 2. Negative for hyperplasia, atypia and malignancy GAS METER CHECKER LABORATORY-C WENDIE Fisher MD on 01/05 LABORATORY at 11:26 AM Clinical 46-year-old G3, 01/05/2022 [facility] Information P3 with 11:26 AM HEALTH menorrhagia and GAS METER CHECKER LABORATORY-C pelvic organ ENTRAL prolapse. BMI LABORATORY 45.9. Hysteroscopy with dilatation and curettage. Gross A) Received in formalin, lab eled with the patient's name and intrauterine, is a 1.7 x 0.8 x 0.2 cm aggregate of brown mucosa admixed with clotted blood. The specimen is entirely submitted in 1 cassette. 01/05/2022 [facility] Description 11:26 AM HEALTH LH 01/03/2022 GAS METER CHECKER LABORATORY-C ENTRAL LABORATORY Microscopic The final 01/05/2022 [facility] Description diagnosis is 11:26 AM HEALTH based on GAS METER CHECKER LABORATORY-C microscopic ENTRAL examination of LABORATORY appropriate sections of all specimens. Additional 01/05/2022 [facility] Information Interpreted at [facility], Central Laboratory - [address], [place] [address] 11:26 AM [facility] GAS METER CHECKER LABORATORY-C ENTRAL LABORATORY Specimen Anatomical Collection Method Collection Time Receive d Time (Source) Location / / Volume Laterality Other SPECIMEN FROM 01/02/2022 3:59 PM 01/04/20 22 9:11 UTERINE CERVIX / GAS METER CHECKER PM GAS METER CHECKER Unknown Aleena De Souza MD PATHOLOGY/CYTOLOGY Performing Organization Address City/State/ZIP Code Phon e Number [facility] [address] [place] [address] LABORATORY-CENTRAL 2000 LABORATORY SERVICES REP THIN PREP PAP SCREEN IMAGED (12/12/2021 10:07 AM GAS METER CHECKER) Component Value Ref Test Analysis Performed At [facility] gist Range Method Time Signature Case Report Gynecologic Cytology Report ? Case: [id number] ? 01/05/2022 CAN Authorizing Provider: ??Russ sam, Katty Fuller RECEPTION INTERVIEWER ?Collected: ? 12/12/2021 1007 ? 3:36 PM HEALTH Ordering Location: ? [facility] CENTRAL LAB ?Received: ?12/13/2021 0937 ? GAS METER CHECKER LA BORATORY-C First Screen: ? Sussy Mckinney ? ENTRAL Specimen: ?SERVICES REP ThinPrep Vial Screening, Cervical/Vaginal ? LABORATORY INTERPRETATION NEGATIVE FOR (none) 01/05/2022 [facility] E lectronically /RESULT INTRAEPITHELIAL 3:36 PM HEALTH sign ed by LESION OR GAS METER CHECKER LABORATORY-C Sussy Mckinney on MALIGNANCY (NIL) ENTRAL 01/05/2022 at LABORATORY 3:36 PM SPECIMEN Satisfactory for evaluation 01/05/2022 [facility] ADEQUACY Endocervical component present 3:36 PM HEALTH GAS METER CHECKER LABORATORY-C ENTRAL LABORATORY HPV REQUEST HPV and PAP 01/05/2022 [facility] 3:36 PM HEALTH GAS METER CHECKER LABORATORY-C ENTRAL LABORATORY Additional 01/05/2022 [facility] Information 3:36 PM HEALTH GAS METER CHECKER LABORATORY-C ENTRAL LABORATORY Comment: Interpreted at [facility], Central Laboratory - [address], [place] [address] Automated Review Successful 01/05/2022 3:36 PM GAS METER CHECKER [facility] LABORATORY-CENTRAL L ABORATORY Comment: Specimen processed successfully by automated telecom specialist device, ThinPrep Imaging System, [employer] ANCILLARY TESTING HPV Ordered, 01/05/2022 3:36 PM [facility] REP Please see GAS METER CHECKER LABORATORY-CENTRAL separate report LABORATORY Note The pap test is a 01/05/2022 3:36 PM [facility] screening GAS METER CHECKER LABORATORY-CENTRAL technique, not a LABORATORY diagnostic procedure. It is used primarily to screen for squamous cancers and precursor lesions. Published studies have shown that it is subject to both false negative and false positive results. The pap test should not be used as the sole means to diagnose or exclude pre-malignant and malignant lesions. Specimen Anatomical Collection Method Collection Time Receive d Time (Source) Location / / Volume Laterality Other 12/12/2021 10:07 12/13/2021 9:37 (Cervical/Vagina AM GAS METER CHECKER AM GAS METER CHECKER l) Katty Rojas NP PATHOLOGY/CYTOLOGY Performing Organization Address [facility] Phon e Number [facility] [address] [place] [address] LABORATORY-CENTRAL 2000 LABORATORY HPV HIGH RISK (12/12/2021 10:07 AM GAS METER CHECKER) Analysis Performed At Patho logist Time Signature TYPE 16 Negative Negative 12/14/2021 [facility] 2:06 PM GAS METER CHECKER LABORATORY-[place] TRAL LABORATORY TYPE 18 Negative Negative 12/14/2021 [facility] 2:06 PM GAS METER CHECKER LABORATORY-[place] TRAL LABORATORY OTHER HIGH Negative Negative 12/14/2021 [facility] RISK TYPES 2:06 PM GAS METER CHECKER LABORATORY-[place] TRAL LABORATORY Specimen Anatomical Collection Method Collection Time Receive d Time (Source) Location / / Volume Laterality Other 12/12/2021 10:07 12/13/2021 9:37 (Cervical/Vagina AM GAS METER CHECKER AM GAS METER CHECKER l) Narrative [facility] LABORATORY-CENTRAL LABORAT ORY - 12/14/2021 2:06 PM GAS METER CHECKER HPV types 16, 18, 31, 33, 35, 39, 45, 51, 52, 56, 58, 59, 66 and 68 DNA were undetectable or below the pre-set threshold. Methodology: [employer] Amadou 4800 HPV Test Katty Rojas NP MICROBIOLOGY Performing Organization Address [facility] Phon e Number [facility] [address] [place] [address] LABORATORY-CENTRAL 2000 LABORATORY from Last 3 Months Insurance Payer Benefit Plan / Subscriber ID Effective Dates Phone Addre ss Type Group BLUE CROSS BLUE CROSS OF [id number] 2017-Present [address] [facility] [place] [phone] Advance Directives Latest Code Status on File Code Status Date Activated Date Inactivated Comments Full Code 09/26/2017 9:08 AM 09/27/2017 4:26 PM Care Teams Steam Shovel Operating Engineer Relationship Specialty Start Date End Date Katty Rojas NP PCP - General Emergency Medicine 03/15/17 [address] [place] [address] Benito Galvez, Consulting Physician Surgery - General 07/07 07/23 MD [address] [address] Zoie Burrell, RN Nurse Clinician 07/31/17 [address] [address]
--- OUTSIDE RECORDS SUMMARY | 2022-01-12 16:24 | XMS_ITS | Encounter Summary ---
:1975 Author Organization [facility] Address [address] [place] [address] Care Team Providers Name Role Phone Lee Hannon MD Primary Care Provider Reason for Visit Reason Comments Med Refill Encounter Details Date Type Department Care Team Description 09/15/2020 Refill [place] Joseph Guevara MD Anxiety [address] [place], [place] [address] [place], [place] [phone] (Wo rk) Social History Tobacco Use Types [...] Date Recorded Female 04/13/2021 4:03 PM BOW MAKER MACHINE TENDER documented as of this encounter Miscellaneous Notes Telephone Encounter - Donna Owen MA - 09/21/2020 8:00 AM CDT Patient doesn???t need a refill, she needs a PA. Per Rosa Chong on 09/16/2020, a PA was submitted E-Prescribing Status: Receipt confirmed by pharmacy (09/14/2020 12:41 PM CDT) Telephone Encounter - Rosa Chong - 09/16/2020 1:45 PM CDT Prior auth submitted. Telephone Encounter - Celi Hicks RN - 09/16/2020 12:06 PM CDT . Telephone Encounter - Maty Barbour RN - 09/16/2020 10:04 AM CDT Patient called stating that a PA will need to be started for insurance coverage of the patients Venlafaxine. She stated that she takes two tablets once daily at night. She does not take one tablet twice daily. [facility] stated they would be sending the PA forms to the ordering provider. Telephone Encounter - Marleen Bond - 09/16/2020 9:47 AM CDT Patient would like to speak to a nurse about this refill. Please call her at [phone]. documented in this encounter Plan of Treatment Not on filedocumented as of this encounter Visit Diagnoses Diagnosis Anxiety Anxiety state, unspecified documented in this encounter Care Teams Services Host Relationship Specialty Start Date End Date Lee Hannon MD PCP - General Family Medicine 02/26/20 03/20/[address] [facility] [place] [address] documented as of this encounter
--- OUTSIDE RECORDS SUMMARY | 2022-01-12 16:24 | XMS_ITS | Encounter Summary ---
:1975 Author Organization [facility] Address [address] [place] [address] Care Team Providers Name Role Phone Lee Hannon MD Primary Care Provider Reason for Visit Reason Comments Advice Only Consultation (Routine) - Closed Specialty Diagnoses / Procedures Referred By Contact Refer red To Contact Cardiology Diagnoses Right bundle branch block (RBBB) determined by electrocardiography Ashely Peterson [facility] [address] [place] [address] [address] [place] [address] [place], [place] Phone: [phone] Fax: Referral ID Status Reason Start Date Expiration Date Visits V isits Requested Authorized [id number] Closed Specialty 02/13/2020 02/12/2021 1 1 Services Required Encounter Details Date Type Department Care Team Description 03/10/2020 Consult [facility] Chelle Jacques, Palpitations (Primary Dx); [address] [place] [address] Abnormal EKG; [place] [address] [place] [address] Class 3 severe obesity without serious c omorbidity with body mass index (BMI) of 40.0 to 44.9 in adult, unspecified obesity type (HCC); [phone] [place], [place] [address] Elevated blood-pressure reading without diagnosis of hypertension; [phone] (Wo rk) Anxiety; Stress Social History Tobacco [...] at Date Recorded Female 04/13/2021 4:03 PM ELEMENTARY EDUCATION TEACHER documented as of this encounter Last Filed Vital Signs Vital Sign Reading Time Taken Comments Blood Pressure 128/82 03/10/2020 8:42 AM ELEMENTARY EDUCATION TEACHER Pulse 89 03/10/2020 8:42 AM ELEMENTARY EDUCATION TEACHER Temperature 36.7 ??C (98 ??F) 03/10/2020 8:42 AM ELEMENTARY EDUCATION TEACHER Respiratory Rate 16 03/10/2020 8:42 AM ELEMENTARY EDUCATION TEACHER Oxygen Saturation 98% 03/10/2020 8:42 AM ELEMENTARY EDUCATION TEACHER Inhaled Oxygen Concentration - - Weight 116 kg (256 lb 3.2 oz) 03/10/2020 8:42 AM ELEMENTARY EDUCATION TEACHER Height - - Body Mass Index 45.38 02/26/2020 4:04 PM ELEMENTARY EDUCATION TEACHER documented in this encounter Patient Instructions Patient [...] your blood pressure and heart rate readings ENTARY EDUCATION TEACHER documented in this encounter Progress Notes Chelle Jacques MD - 03/10/2020 8:40 AM CST Images from the original note were not included. CARDIOLOGY OUTPATIENT CONSULTATION NOTE REQUESTING PROVIDER Ashely Peterson MD [address] [place] [phone] PRIMARY CARE PROVIDER Lee Hannon MD CHIEF [...] report to work in person rather than recreation worker. Ms. Edwards also reports stress and anxiety about fairly constant uterine bleeding. She reports that she underwent bariatric surgery (gastric sleeve) in 2018. She successfully lost weight with a low-carb diet. The low-carb diet, however, resulted in constant uterine bleeding. She then tried a keto diet, but this was unsuccessful in terms of weight loss. She recently saw her salvage worker who prescribednorethindrone to address her uterine bleeding. [...] Due to Ms. Edwards's reported palpitations, her salvage worker ordered an ECG. The ECG report listed [...] complications. SOCIAL HISTORY . 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 Has never smoked or use smokeless tobacco. [...] Total time: 45 minutes, 25 minutes counseling. ENTARY EDUCATION TEACHER Lee Hannon MD - 03/10/2020 8:40 AM CST Note reviewed, thank you. ENTARY EDUCATION TEACHER documented in this encounter Plan of Treatment [...] classified documented in this encounter Care Teams Can Filling And Closing Machine Tender Relationship Specialty Start Date End Date Lee Hannon MD PCP - General Family Medicine 02/26/[address] [place] [address] documented as of this encounter
--- OUTSIDE RECORDS SUMMARY | 2022-01-12 16:24 | XMS_ITS | Encounter Summary ---
:1975 Author Organization [facility] Address [address] [place] [address] Care Team Providers Name Role Phone Lee Hannon MD Primary Care Provider Reason for Visit Reason Comments Foot Injury left foot, fell going down c amper steps 5-6 weeks ago, worsening Encounter Details Date Type Department Care Team Description 07/09/2020 Office Visit Benito Gordon, Left ankle pain, [address] unspecified chronicity [place], [place] [address] (Primary Dx) [address] [place], [place] [phone] [address] Social History Tobacco Use Types Packs/Day Years [...] at Date Recorded Female 04/13/2021 4:03 PM TURFGRASS MANAGEMENT PROFESSOR documented as of this encounter Last Filed [...] Primary documented in this encounter Care Teams Certified Dental Assistant Relationship Specialty Start Date End Date Lee Hannon MD PCP - General Family Medicine 02/26/20 03/20/21 [address] [place] [address] documented as of this encounter
--- OUTSIDE RECORDS SUMMARY | 2022-01-12 16:24 | XMS_ITS | Encounter Summary ---
:1975 Author Organization [facility] Address [address] [place] [address] Care Team Providers Name Role Phone Benito Leonardo MD Primary Care Provider Reason for Visit Reason Comments Med Refill Encounter Details Date Type Department Care Team Description 03/11/2021 Refill Lee Berkowitz MD Palpitations [address] [place] [address] [place] [address] [place] [address] (Wo rk) Social History [...] at Date Recorded Female 04/13/2021 4:03 PM ARTIFACTS CONSERVATOR documented as of this encounter Miscellaneous Notes Telephone Encounter - Gabby Patiño - 03/21/2021 3:07 PM CST Pt contacted. Pt has established care outside of [facility]. FACTS CONSERVATOR Telephone Encounter - Gabby Patiño - 03/18/2021 4:12 PM CST LMTC at [phone] FACTS CONSERVATOR Telephone Encounter - Gabby Patiño - 03/16/2021 9:13 AM CST TC at [phone] FACTS CONSERVATOR Telephone Encounter - Lee Hannon MD - 03/15/2021 2:13 PM CST Rx sent Due for annual visit- follow up of hypertension and bariatric surgery labs. Please assist with scheduling. If she is in agreement, I will order previsit labs, please return message to me for orders. Of note- I [facility] her [facility] (not in [place]) but she lives in [place] and had [facility] locations [facility] follow up. FACTS CONSERVATOR Telephone Encounter - Rossana Villatoro LPN - [...] Please contact patient to assist with scheduling. FACTS CONSERVATOR documented in this encounter Plan of Treatment Not on filedocumented as of this encounter Visit Diagnoses Diagnosis Palpitations documented in this encounter Care Teams Crematory Attendant Relationship Specialty Start Date End Date Benito Leonardo MD PCP - General 11/17/[address] [place] [address] documented as of this encounter
--- OUTSIDE RECORDS SUMMARY | 2022-01-12 16:24 | XMS_ITS | Encounter Summary ---
:1975 Author Organization [facility] Address [address] [place] [address] Care Team Providers Name Role Phone Lee Hannon MD Primary Care Provider Reason for Visit Reason Comments Med Refill Encounter Details Date Type Department Care Team Description 09/10/2020 Refill Lee Berkowitz MD Anxiety [address] [place] [address] [place] [address] [place] [address] (Wo rk) Social History [...] at Date Recorded Female 04/13/2021 4:03 PM FABRICATION DEPARTMENT SUPERVISOR documented as of this encounter Miscellaneous Notes [...] unspecified documented in this encounter Care Teams Carbon Blocks Press Operator Relationship Specialty Start Date End Date Lee Hannon MD PCP - General Family Medicine 02/26/20 03/20/[address] [place] [address] documented as of this encounter
--- OUTSIDE RECORDS SUMMARY | 2022-01-12 16:25 | XMS_ITS | Encounter Summary ---
:[address] [facility] Address [address] [place] [address] Care Team Providers Name Role Phone None, Pcp Primary Care Provider Unavailable Reason for Referral Consultation (Routine) - Closed Specialty Diagnoses / Procedures Referred By Contact Refer red To Contact Cardiology Diagnoses Right bundle branch block (RBBB) determined by electrocardiography Ashely Peterson [facility] [address] [place] [address] [address] [place] [address] [place], [place] Phone: [phone] Fax: Referral ID Status Reason Start Date Expiration Date Visits V isits Requested Authorized [id number] Closed Specialty 02/13/2020 02/12/2021 1 1 Services Required Scheduling Instructions Please call the Chief Technician X Ray nickie simpson at [phone]. [phone] to schedule an appointment. Y AND FOOD LABORATORY ASSISTANT Encounter Details Date Type Department Care Team Description 02/13/2020 Orders Only [facility] Women's Health Ashely Peterson Right bundle branch block [place] Samira Granados MD (RBBB) det ermined by Rock Loader electrocardiography [address] [facility] (Primary Dx) [place], [place] [address] Social History Tobacco Use Types Packs/Day Years [...] at Date Recorded Female 04/13/2021 4:03 PM DAIRY AND FOOD LABORATORY ASSISTANT documented as of this encounter Progress Notes Ashely Peterson MD - 02/13/2020 1:43 PM CST EKG reviewed -- Borderline EKG with possible RBBB. Referral to cardiology placed. Ashely Peterson MD Y AND FOOD LABORATORY ASSISTANT documented in this encounter Plan of Treatment Scheduled Referrals Name Type Priority Associated Diagnoses Order S [facility] Ambulatory Outpatient Routine Right bundle branch block Or dered: referral to Referral (RBBB) determined by 021 Cardiology electrocardiography documented as of this encounter Visit Diagnoses Diagnosis Right bundle branch block (RBBB) determi vidal by electrocardiography - Primary documented in this encounter Care Teams Full Service Supervisor Relationship Specialty Start Date End Date None, Pcp PCP - General Stem Roller 12/01/19 02/25/[address] [place] [phone] documented as of this encounter
--- OUTSIDE RECORDS SUMMARY | 2022-01-12 16:25 | XMS_ITS | Encounter Summary ---
:1975 Author Organization [facility] Address [address] [place] [address] Care Team Providers Name Role Phone Katty Rojas APRN, CNP Primary Care Provider [phone] Encounter Details Date Type Department Care Team Description 02/10/2019 Orders Only [place] Essential hypertension [address] M, HERBERT ZAVALA (Primary Dx) [place], [place] 100 [facility] [address] [place] [address] Social History Tobacco Use Types Packs/Day Years Used Date Smoking Tobacco: Never Assessed Alcohol Habits Answer Date Recorded How often do you have a drink containing alcohol? Never 02/13/2020 How many drinks containing alcohol do you have on a typical Not asked day when you are drinking? How often do you have six or more drinks on one occasion? No t asked Sex Assigned at Date Recorded Female 04/13/2021 4:03 PM WASTEWATER [employer]ATMENT PLANT SUPERVISOR documented as of this encounter Plan of Treatment Not on filedocumented as of this encounter Results (ABNORMAL) Basic metabolic panel (02/10/2019 3:47 PM WASTEWATER [employer]AT[employer] PLANT SUPERVISOR) P athologist Signature Sodium 141 135 - 145 02/10/2019 [facility] mmol/L 4:11 PM [employer]EWATER [employer]AT[employer] PLANT SUPERVISOR [place] Potassium 3.8 3.5 - 5.1 02/10/2019 [facility] mmol/L 4:11 PM [employer]EW[employer]AT[employer] SUPERVISOR [place] Comment: . Chloride 104 98 - 107 mmol/L 02/10/2019 4:11 PM WASTEWATER [employer]REATMENT PLANT SUPERVISOR [facility] Comment: . CO2 30 (H) 22 - 29 mmol/L 02/10/2019 4:11 PM WASTEWATER TREATMENT PLANT SUPERVISOR [facility] [place] Comment: . Creatinine 0.8 0.4 - 1.2 mg/dL 02/10/2019 4:11 PM WASTEWATER TREATMENT PLANT SUPERVISOR [facility] [place] Comment: . BUN 21 5 - 25 mg/dL 02/10/2019 4:11 PM WASTEWATER TREATMENT PLANT SUPERVISOR [facility] [place] Comment: . Glucose 105 (H) 70 - 100 mg/dL 02/10/2019 4:11 PM WASTEWATER T[employer]ATMENT PLANT SUPERVISOR [facility] Calcium, Total,S 9.7 8.4 - 10.2 mg/dL 02/10/2019 4:11 PM WASTEWATER [employer]AT[employer] PLANT SUPERVISOR [facility] [place] Comment: . Fasting? No 02/10/2019 3:49 PM WASTEWATER TREATMENT PLANT SUPERVISOR [facility] CAN NON [place] Specimen Anatomical Collection Method Collection Time Receive d Time (Source) Location / / Volume Laterality Blood 02/10/2019 3:47 PM 0 3:49 [employer] SUPERVISOR PM [employer]EWATER [employer]ATMENT PLANT SUPERVISOR Katty Rojas APRN, NOTCHING MACHINE OPERATOR LAB BLOOD ORDERABLES Performing Organization Address City/State/ZIP Code Phon e Number [facility] [place] [address] [place] [address] documented in this encounter Visit Diagnoses Diagnosis Essential hypertension - Primary Unspecified essential hypertension documented in this encounter Care Teams Cath Lab Technologist Relationship Specialty Start Date End Date Katty Rojas APRN, NOTCHING MACHINE OPERATOR PCP - General 09/11/17 10/13/19 100 [facility] [place] [address] documented as of this encounter
--- OUTSIDE RECORDS SUMMARY | 2022-01-12 16:25 | XMS_ITS | Encounter Summary ---
:1975 Author Organization [facility] Address [address] [place] [address] Care Team Providers Name Role Phone Katty Rojas APRN, SOCIAL WORK MANAGER Primary Care Provider [phone] Reason for Visit Reason Onset Date Comments medication prior auth. 05/24/2018 Venlafaxine HCl E R 150MG er capsules Encounter Details Date Type Department Care Team Description 05/24/2018 Telephone [place] Katty Rojas, medication prior auth. 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 Pharmacy is notified. Case ID: [id number]. Telephone Encounter - Rachael Rene MA - 05/24/2018 9:42 AM CDT Venlafaxine HCl ER 150MG er capsules BIN: [id number] PCN: GROUP: [id number] PLAN: [employer] [place] PHONE: [phone] ID: [id number] PA completed per CMM, sent to plan. [place]: [id number]. documented in this encounter Plan of Treatment Not on filedocumented as of this encounter Visit Diagnoses Not on filedocumented in this encounter Care Teams Support Specialist Relationship Specialty Start Date End Date Katty Rojas, CALL CENTER ANALYST, SOCIAL WORK MANAGER PCP - General 09/11/17 10/13/[address] [place] [address] [place] [address] documented as of this encounter
--- OUTSIDE RECORDS SUMMARY | 2022-01-12 16:25 | XMS_ITS | Encounter Summary ---
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 VITAMIN D, TOTAL Routine 03/05/2020 1:25 S/P laparoscopic Resu lts for this PM BOX SPRING UPHOLSTERER sleeve gastrectomy procedure are in the results section. CBC BRANCH OFFICE Routine 03/05/2020 1:25 S/P laparoscopic Res ults for this W/DIFF PM BOX SPRING UPHOLSTERER sleeve gastrectomy procedure are in the results section. VITAMIN B1, WHOLE Routine 03/05/2020 1:25 S/P laparoscopic Res ults for this BLOOD PM BOX SPRING UPHOLSTERER sleeve gastrectomy procedure are in the results section. VITAMIN A Routine 03/05/2020 1:25 S/P laparoscopic Results for this PM BOX SPRING UPHOLSTERER sleeve gastrectomy procedure are in the results section. TSH Routine 03/05/2020 1:25 S/P laparoscopic Results for this PM BOX SPRING UPHOLSTERER sleeve gastrectomy procedure are in the results section. PREALBUMIN Routine 03/05/2020 1:25 S/P laparoscopic Results for this PM BOX SPRING UPHOLSTERER sleeve gastrectomy procedure are in the results section. PTH, INTACT Routine 03/05/2020 1:25 S/P laparoscopic Results for this PM BOX SPRING UPHOLSTERER sleeve gastrectomy procedure are in the results section. FOLATE Routine 03/05/2020 1:25 S/P laparoscopic Results for this PM BOX SPRING UPHOLSTERER sleeve gastrectomy procedure are in the results section. FERRITIN Routine 03/05/2020 1:25 S/P laparoscopic Results for this PM BOX SPRING UPHOLSTERER sleeve gastrectomy procedure are in the results section. VITAMIN B12 Routine 03/05/2020 1:25 S/P laparoscopic Results for this PM BOX SPRING UPHOLSTERER sleeve gastrectomy procedure are in the results section. LIPID PANEL Routine 03/05/2020 1:25 Essential Results for this PM BOX SPRING UPHOLSTERER hypertension procedure are in S/P laparoscopic the results sleeve gastrectomy section. COMPREHENSIVE Routine 03/05/2020 1:25 S/P laparoscopic Results for this METABOLIC PANEL PM BOX SPRING UPHOLSTERER sleeve gastrectomy proced ure are in the results section. documented in this encounter Results Glomerular filtration rate (GFR) (03/05/2020 1:25 PM BOX SPRING UPHOLSTERER) P athologist Signature GFR >60 03/05/2020 [facility] 6:25 PM BOX SPRING UPHOLSTERER CENTER [facility] >60 03/05/2020 [facility] Citizen [place] GFR 6:25 PM [facility] Comment: GFR calculated from serum creatinine v alue Chronic Kidney Disease less than 60 mL/m in/1.73 m2 Kidney Failure less than 15 mL/min/1.73 m2 Note: effective 06/20/06 IDMS-Traceable MDRD Study Equation used. Specimen Anatomical Collection Method Collection Time Receive d Time (Source) Location / / Volume Laterality 03/05/2020 1:25 PM 1:25 BOX SPRING UPHOLSTERER PM BOX SPRING UPHOLSTERER Lee Hannon MD LAB BLOOD ORDERABLES Performing Organization Address City/State/ZIP Code Phon e Number [facility] [address] [place] [phone] CBC Branch Off w/Diff (03/05/2020 1:25 PM BOX SPRING UPHOLSTERER) P athologist Signature WBC 6.6 3.5 - 10.5 03/05/2020 [facility] K/uL 1:34 PM BOX SPRING UPHOLSTERER [place] RBC 4.24 3.90 - 03/05/2020 [facility] 5.00 M/uL 1:34 PM BOX SPRING UPHOLSTERER [place] Hemoglobin 12.7 12.0 - 03/05/2020 [facility] 15.5 g/dL 1:34 PM BOX SPRING UPHOLSTERER [place] Hematocrit 38.8 35.0 - 03/05/2020 [facility] 44.0 % 1:34 PM BOX SPRING UPHOLSTERER [place] Platelets 364 150 - 450 03/05/2020 [facility] K/uL 1:34 PM BOX SPRING UPHOLSTERER [place] MCV 91.5 81.6 - 03/05/2020 [facility] 98.3 fL 1:34 PM BOX SPRING UPHOLSTERER [place] MCH 30.0 26.0 - 03/05/2020 [facility] 32.0 pg 1:34 PM BOX SPRING UPHOLSTERER [place] MCHC 32.7 32.0 - 03/05/2020 [facility] 36.0 g/dL 1:34 PM BOX SPRING UPHOLSTERER [place] RDW 13.7 11.9 - 03/05/2020 [facility] 15.5 % 1:34 PM B[place]ING UPHOLSTERER [place] Lymphocytes % 27.8 % 03/05/2020 [facility] 1:34 PM B[place] SPRING UPHOLSTERER [place] Mid-size Cells 7.8 % 03/05/2020 [facility] 1:34 PM [place] UPHOLSTERER [place] Granulocytes/Percy 64.4 % 03/05/2020 [facility] trophils 1:34 PM [employer] SPRING UPHOLSTERER [place] Lymphocytes 1.8 0.9 - 2.9 03/05/2020 [facility] Absolute K/uL 1:34 PM B[place] SPRING UPHOLSTERER [place] MIDS Absolute 0.5 0.4 - 1.5 03/05/2020 [facility] K/uL 1:34 PM B[place]ING UPHOLSTERER [place] Granulocytes/Percy 4.3 1.7 - 7.0 03/05/2020 [facility] trophils K/uL 1:34 PM BOX SPRING UPHOLSTERER [place] Absolute Specimen Anatomical Collection Method Collection Time Receive d Time (Source) Location / / Volume Laterality Blood 03/05/2020 1:25 PM 1:33 BOX SPRING UPHOLSTERER PM BOX SPRING UPHOLSTERER Lee Hannon MD LAB BLOOD ORDERABLES Performing Organization Address City/State/ZIP Code Phon e Number [facility] [address] [place] [address] Comprehensive metabolic panel (03/05/2020 1:25 PM BOX SPRING UPHOLSTERER) P athologist Signature Total Protein 7.2 6.3 - 8.2 03/05/2020 [facility] g/dL 6:25 PM [facility] Albumin, Serum 4.2 3.5 - 5.0 03/05/2020 [facility] g/dL 6:25 PM [facility] Total Bilirubin <0.7 0.1 - 1.0 03/05/2020 [facility] mg/dL 6:25 PM [facility] AST 25 8 - 43 U/L 03/05/2020 [facility] 6:25 PM [facility] Alkaline 87 38 - 128 03/05/2020 [facility] Phosphatase U/L 6:25 PM [facility] ALT (SGPT) 24 0 - 34 U/L 03/05/2020 [facility] 6:25 PM [facility] Sodium 135 135 - 145 03/05/2020 [facility] mEq/L 6:25 PM [facility] Potassium 3.7 3.5 - 5.1 03/05/2020 [facility] mEq/L 6:25 PM [facility] Chloride 102 98 - 107 03/05/2020 [facility] mEq/L 6:25 PM [facility] CO2 25 22 - 29 03/05/2020 [facility] mmol/L 6:25 PM [facility] BUN 14 5 - 25 03/05/2020 [facility] mg/dL 6:25 PM [facility] Creatinine 0.6 0.4 - 1.2 03/05/2020 [facility] mg/dL 6:25 PM [facility] Glucose 89 70 - 100 03/05/2020 [facility] mg/dL 6:25 PM [facility] Calcium, Total,S 9.4 8.4 - 10.2 03/05/2020 [facility] mg/dL 6:25 PM [facility] Specimen Anatomical Collection Method Collection Time Receive d Time (Source) Location / / Volume Laterality Blood (Blood, 03/05/2020 1:25 PM 03/05/19 21 5:59 Venous) BOX SPRING UPHOLSTERER PM BOX SPRING UPHOLSTERER Lee Hannon MD LAB BLOOD ORDERABLES Performing Organization Address City/[facility]/ZIP Code Phon e Number [facility] [address] [place] [address] Vitamin A (03/05/2020 1:25 PM BOX SPRING UPHOLSTERER) athologist Signature Free Retinol 40.6 32.5 - 03/09/2020 [facility] (Vit A) 78.0 10:50 AM [facility] SPRING UPHOLSTERER LAB[facility]ATORIES mcg/dL Comment: ADDITIONAL INFORMATIO N This test was developed and its performa nce characteristics determined by [facility] in a manner co nsistent with CLIA requirements. This test has not been leobardo ared or approved by the U.S. Food and Drug Administration. Test Performed by: [facility] [address] [id number] Tie Buyer: Anson Powell M.D. Ph. D.; CLIA# [id number] Specimen Anatomical Collection Method Collection Time Receive d Time (Source) Location / / Volume Laterality Blood (Blood, 03/05/2020 1:25 PM 03/05/19 21 Venous) BOX SPRING UPHOLSTERER 10:46 PM BOX SPRING UPHOLSTERER Lee Hannon MD LAB BLOOD ORDERABLES Performing Organization Address City/[facility]/ZIP Code Phon e Number [facility] see result attachment for specific address (ABNORMAL) Vitamin D, Total (03/05/2020 1:25 PM BOX SPRING UPHOLSTERER) Analysis Performed At Patho logist Time Signature Vitamin D, 28.0 (A) ng/mL 03/08/2020 [place] [place] Total 8:11 PM BOX SPRING UPHOLSTERER [facility] Comment: Deficient ?<20 ? ng/mL Insufficient ? 20-<30 ??ng/mL Sufficient ? 30-100 ??ng/mL Vitamin D2/D3 fractionation is recommend ed at the discretion of the clinician if Total Vitamin D is w ithin deficient or insufficient range. Specimen Anatomical Collection Method Collection Time Receive d Time (Source) Location / / Volume Laterality Blood 03/05/2020 1:25 PM 5:59 BOX SPRING UPHOLSTERER PM BOX SPRING UPHOLSTERER Lee Hannon MD LAB BLOOD ORDERABLES Performing Organization Address City/[facility]/ZIP Code Phon e Number [facility] [address] [place] [address] Ferritin (03/05/2020 1:25 PM BOX SPRING UPHOLSTERER) athologist Signature Ferritin 32 6 - 137 03/05/2020 [facility] ng/mL 7:29 PM BOX SPRING UPHOLSTERER [facility] Comment: The results from this [...] 03/05/2020 1:25 PM 03/05/19 21 5:59 Venous) BOX SPRING UPHOLSTERER PM BOX SPRING UPHOLSTERER Lee Hannon MD LAB BLOOD ORDERABLES Performing Organization Address City/[facility]/ZIP Code Phon e Number [facility] [address] [place] [address] Vitamin B1, whole blood (03/05/2020 1:25 PM BOX SPRING UPHOLSTERER) athologist Signature Thiamin 117 70 - 180 03/09/2020 [facility] (Vitamin B1) nmol/L 10:22 AM [facility] Comment: ADDITIONAL INFORMATIO N This test was developed and its performa nce characteristics determined by [facility] in a manner co nsistent with CLIA requirements. This test has not been leobardo ared or approved by the U.S. Food and Drug Administration. Test Performed by: [facility] [address] [place], [place] [address] Tie Buyer: Anson Powell M.D. Ph. D.; CLIA# [id number] Specimen Anatomical Collection Method Collection Time Receive d Time (Source) Location / / Volume Laterality Blood (Blood, 03/05/2020 1:25 PM 03/05/19 Venous) BOX SPRING UPHOLSTERER 10:46 PM BOX SPRING UPHOLSTERER Lee Hannon MD LAB BLOOD ORDERABLES Performing Organization Address City/[facility]/ZIP Code Phon e Number [facility] see result attachment for specific address Folate (03/05/2020 1:25 PM BOX SPRING UPHOLSTERER) athologist [facility] Folate 9.5 >=2.8 ng/mL 03/05/2020 [facility] 8:06 PM [facility] SPR[facility] UPHOLSTERER [facility] Comment: The results from this [...] (Blood, 03/05/2020 1:25 PM 03/05/19 5:59 Venous) BOX SPRING UPHOLSTERER PM BOX SPRING UPHOLSTERER Lee Hannon MD LAB BLOOD ORDERABLES Performing Organization Address City/[facility]/ZIP Code Phon e Number [facility] [address] [place] [address] Vitamin B12 (03/05/2020 1:25 PM BOX SPRING UPHOLSTERER) athologist Signature Vitamin B-12 386 239 - 931 03/05/2020 [facility] pg/mL 8:06 PM BOX SPRING UPHOLSTERER [facility] Comment: The results from this [...] Volume Laterality Blood 03/05/2020 1:25 PM 5:59 BOX SPRING UPHOLSTERER PM BOX SPRING UPHOLSTERER Lee Hannon MD LAB BLOOD ORDERABLES Performing Organization Address City/[facility]/ZIP Code Phon e Number [facility] [address] [place] [address] PTH, intact (03/05/2020 1:25 PM BOX SPRING UPHOLSTERER) athologist Signature Parathyroid 70.7 10.0 - 03/05/2020 [facility] Hormone 87.0 pg/mL 6:52 PM [facility] Comment: The results from [...] (Blood, 03/05/2020 1:25 PM 03/05/19 5:59 Venous) BOX SPRING UPHOLSTERER PM BOX SPRING UPHOLSTERER Lee Hannon MD LAB BLOOD ORDERABLES Performing Organization Address City/[facility]/ZIP Code Phon e Number [facility] [address] [place] [address] Prealbumin (03/05/2020 1:25 PM BOX SPRING UPHOLSTERER) athologist Signature Prealbumin 20.6 17.6 - 36.0 03/05/2020 [facility] mg/dL 6:42 PM [facility] Specimen Anatomical Collection Method Collection Time Receive d Time (Source) Location / / Volume Laterality Blood (Blood, 03/05/2020 1:25 PM 03/05/19 21 5:59 Venous) BOX SPRING UPHOLSTERER PM BOX SPRING UPHOLSTERER Lee Hannon MD LAB BLOOD ORDERABLES Performing Organization Address City/State/ZIP Code Phon e Number [facility] [address] [place] [address] (ABNORMAL) Lipid panel (03/05/2020 1:25 PM BOX SPRING UPHOLSTERER) athologist Signature Cholesterol 239 (H) 0 - 199 03/05/2020 [facility] mg/dL 6:25 PM [facility] Comment: Recommended by National Cholesterol Education Program (ATP III) -------- Cholesterol Ranges -------- <200 ?Desirable 200-239 ? Borderline high >=240 ? High Triglycerides 75 0 - 149 mg/dL 03/05/2020 6:25 PM [facility] Comment: -------- TRIG Ranges -------- <150 ?Normal 150-199 ? Borderline high 200-499 ? High >=500 ? Very high HDL 51 40 - 250 mg/dL 03/05/2020 6:25 PM [facility] Comment: -------- HDL Ranges -------- <40 ?Low 40-59 ?Normal >=60 ? Optimal LDL Calculated 173 (H) 0 - 99 mg/dL 03/05/2020 6:25 PM [facility] Comment: -------- LDL Ranges -------- <100 ? Optimal 100-129 ?Near optimal/above op timal 130-159 ?Borderline high 160-189 ?High >=190 ?Very high Fasting? Yes 03/05/2020 1:33 PM BOX SPRING UPHOLSTERER [facility] Specimen Anatomical Collection Method Collection Time Receive d Time (Source) Location / / Volume Laterality Blood 03/05/2020 1:25 PM 5:59 BOX SPRING UPHOLSTERER PM BOX SPRING UPHOLSTERER Lee Hannon MD LAB BLOOD ORDERABLES Performing Organization Address [facility]/ZIP Code Phon e Number [facility] [address] [place] [address] TSH (03/05/2020 1:25 PM BOX SPRING UPHOLSTERER) athologist Signature TSH, Sensitive 0.83 0.46 - 03/05/2020 [facility] 4.68 mIU/L 6:59 PM [facility]PH[facility] Comment: The results from this [...] 03/05/2020 1:25 PM 03/05/19 21 5:59 Venous) BOX SPRING UPHOLSTERER PM [facility] SPRING UPHOLSTERER Lee Hannon MD LAB BLOOD ORDERABLES Performing Organization Address [facility]/ZIP Code Phon e Number [facility] [address] [place] [address] documented in this encounter Visit Diagnoses Diagnosis S/P laparoscopic sleeve gastrectomy Essential hypertension Unspecified essential hypertension documented in this encounter Care Teams Towel Sorter Relationship Specialty Start Date End Date Lee Hannon MD PCP - General Family Medicine 02/26/20 03/20/[address] [place] [address] documented as of this encounter
--- OUTSIDE RECORDS SUMMARY | 2022-01-12 16:25 | XMS_ITS | Encounter Summary ---
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
--- OUTSIDE RECORDS SUMMARY | 2022-01-12 16:25 | XMS_ITS | Encounter Summary ---
:1975 Author Organization [facility] Address [address] [place] [address] Care Team Providers Name Role Phone Katty Rojas APRN, WEATHER FORCASTER Primary Care Provider [phone] Encounter Details Date Type Department Care Team Description 02/13/2019 Lab David Teresa S/P laparoscopic sleeve krista rectomy; [address] Morbid obesity (HCC); [place], [place] [address] Hyperlipidemia, unspecified hyperlipidemia type [phone] Social History Tobacco Use Types Packs/Day Years [...] at Date Recorded Female 04/13/2021 4:03 PM PROTOTYPE FABRICATOR documented as of this encounter Plan of Treatment Not on filedocumented as of this encounter Procedures Procedure Name Priority Date/Time Associated Diagnosis Comme nts GLOMERULAR FILTRATION Routine 02/13/2019 4:25 S/P laparoscopic Results for this RATE PM PROTOTYPE FABRICATOR sleeve gastrecto my procedure are in Morbid obesity (HCC) the res ults section. VITAMIN D, TOTAL Routine 02/13/2019 4:25 S/P laparoscopic Resu lts for this PM PROTOTYPE FABRICATOR sleeve gastrecto my procedure are in Morbid obesity (HCC) the res ults section. CBC BRANCH OFFICE Routine 02/13/2019 4:25 S/P laparoscopic Res ults for this W/DIFF PM PROTOTYPE FABRICATOR sleeve gastrecto my procedure are in Morbid obesity (HCC) the res ults section. VITAMIN B1, WHOLE Routine 02/13/2019 4:25 S/P laparoscopic Res ults for this BLOOD PM PROTOTYPE FABRICATOR sleeve gastrecto my procedure are in Morbid obesity (HCC) the res ults section. VITAMIN A Routine 02/13/2019 4:25 S/P laparoscopic Results for this PM PROTOTYPE FABRICATOR sleeve gastrecto my procedure are in Morbid obesity (HCC) the res ults section. INSULIN, SERUM Routine 02/13/2019 4:25 S/P laparoscopic Result s for this PM PROTOTYPE FABRICATOR sleeve gastrecto my procedure are in Morbid obesity (HCC) the res ults section. VITAMIN B6 Routine 02/13/2019 4:25 S/P laparoscopic Results for this PM PROTOTYPE FABRICATOR sleeve gastrecto my procedure are in Morbid obesity (HCC) the res ults section. IRON Routine 02/13/2019 4:25 S/P laparoscopic Results for this PM PROTOTYPE FABRICATOR sleeve gastrecto my procedure are in Morbid obesity (HCC) the res ults section. FOLATE Routine 02/13/2019 4:25 S/P laparoscopic Results for this PM PROTOTYPE FABRICATOR sleeve gastrecto my procedure are in Morbid obesity (HCC) the res ults section. FERRITIN Routine 02/13/2019 4:25 S/P laparoscopic Results for this PM PROTOTYPE FABRICATOR sleeve gastrecto my procedure are in Morbid obesity (HCC) the res ults section. VITAMIN B12 Routine 02/13/2019 4:25 S/P laparoscopic Results for this PM PROTOTYPE FABRICATOR sleeve gastrecto my procedure are in Morbid obesity (HCC) the res ults section. LIPID PANEL Routine 02/13/2019 4:25 Hyperlipidemia, Results f or this PM PROTOTYPE FABRICATOR unspecified procedure are i n hyperlipidemia t ype the results S/P laparoscopic section. sleeve gastrecto my Morbid obesity (HCC) COMPREHENSIVE Routine 02/13/2019 4:25 S/P laparoscopic Results for this METABOLIC PANEL PM PROTOTYPE FABRICATOR sleeve gastrecto my procedure are in Morbid obesity (HCC) the res ults section. documented in this encounter Results Glomerular filtration rate (GFR) (02/13/2019 4:25 PM PROTOTYPE FABRICATOR) P athologist Signature GFR >60 02/14/2019 [facility] 1:20 PM PROTOTYPE FABRICATOR [facility] >60 02/14/2019 [facility] Montenegrin GFR 1:20 PM PROTOTYPE FABRICATOR [facility] Comment: GFR calculated from serum creatinine v alue Chronic Kidney Disease less than 60 mL/m in/1.73 m2 Kidney Failure less than 15 mL/min/1.73 m2 Note: effective 06/20/06 IDMS-Traceable MDRD Study Equation used. Specimen Anatomical Collection Method Collection Time Receive d Time (Source) Location / / Volume Laterality 02/13/2019 4:25 PM 0 4:25 PROTOTYPE FABRICATOR PM PROTOTYPE FABRICATOR Katty Rojas APRN, CNP LAB BLOOD ORDERABLES Performing Organization Address City/[facility]/ZIP Code Phon e Number [facility] [address] [place] [address] Vitamin B12 (02/13/2019 4:25 PM PROTOTYPE FABRICATOR) athologist Signature Vitamin B-12 050 445 - 302 02/14/2019 [facility] pg/mL 2:25 PM PROTOTYPE FABRICATOR [facility] Comment: The results from this [...] Volume Laterality Blood 02/13/2019 4:25 PM 0 PROTOTYPE FABRICATOR 12:28 PM PROTOTYPE FABRICATOR Katty Rojas APRN, CNP LAB BLOOD ORDERABLES Performing Organization Address City/State/ZIP Code Phon e Number [facility] [address] [place] [address] CBC Branch Off w/Diff (02/13/2019 4:25 PM PROTOTYPE FABRICATOR) athologist Signature WBC 6.9 3.5 - 10.5 02/13/2019 [facility] K/uL 4:48 PM PROTOTYPE FABRICATOR [place] RBC 4.43 3.90 - 02/13/2019 [facility] 5.00 M/uL 4:48 PM PROTOTYPE FABRICATOR [place] Hemoglobin 13.4 12.0 - 02/13/2019 [facility] 15.5 g/dL 4:48 PM PROTOTYPE FABRICATOR [place] Hematocrit 41.0 35.0 - 02/13/2019 [facility] [place] 44.0 % 4:48 PM PROTOTYPE FABRICATOR [place] Platelets 397 150 - 450 02/13/2019 [facility] K/uL 4:48 PM PROTOTYPE FABRICATOR [place] MCV 92.6 81.6 - 02/13/2019 [facility] 98.3 fL 4:48 PM PROTOTYPE FABRICATOR [place] MCH 30.2 26.0 - 02/13/2019 [facility] [place] 32.0 pg 4:48 PM PROTOTYPE FABRICATOR [place] MCHC 32.7 32.0 - 02/13/2019 [facility] [place] 36.0 g/dL 4:48 PM PROTOTYPE FABRICATOR [place] RDW 13.2 11.9 - 02/13/2019 [facility] 15.5 % 4:48 PM PROTOTYPE FABRICATOR [place] Lymphocytes % 32.7 18.0 - 02/13/2019 [facility] 45.0 % 4:48 PM PROTOTYPE FABRICATOR [place] Mid-size Cells 10.0 3.3 - 10.1 02/13/2019 [facility] % 4:48 PM PROTOTYPE FABRICATOR [place] Granulocytes/Percy 57.3 45.8 - 02/13/2019 [facility] trophils 73.7 % 4:48 PM PROTOTYPE FABRICATOR [place] Lymphocytes 2.3 0.9 - 2.9 02/13/2019 [facility] Absolute K/uL 4:48 PM PROTOTYPE FABRICATOR [place] MIDS Absolute 0.7 0.2 - 0.8 02/13/2019 [facility] K/uL 4:48 PM PROTOTYPE FABRICATOR [place] Granulocytes/Percy 3.9 2.1 - 8.7 02/13/2019 [facility] trophils K/uL 4:48 PM PROTOTYPE FABRICATOR [place] Absolute Specimen Anatomical Collection Method Collection Time Receive d Time (Source) Location / / Volume Laterality Blood 02/13/2019 4:25 PM 0 4:25 PROTOTYPE FABRICATOR PM PROTOTYPE FABRICATOR Katty Rojas APRN, WEATHER FORCASTER LAB BLOOD ORDERABLES Performing Organization Address City/State/ZIP Code Phon e Number [facility] [place] [place] [address] [place] [address] (ABNORMAL) Comprehensive metabolic panel (02/13/2019 4:25 PM PROTOTYPE FABRICATOR) Analysis Performed At Patho logist Time Signature Total Protein 6.9 6.3 - 8.2 02/14/2019 [facility] g/dL 1:20 PM [facility] Albumin, Serum 4.0 3.5 - 5.0 02/14/2019 [facility] g/dL 1:20 PM [facility] Total Bilirubin <0.7 0.1 - 1.0 02/14/2019 [facility] mg/dL 1:20 PM [facility] AST 20 8 - 43 U/L 02/14/2019 [facility] 1:20 PM [facility] Alkaline 83 38 - 128 02/14/2019 [facility] Phosphatase U/L 1:20 PM [facility] ALT (SGPT) 27 0 - 34 U/L 02/14/2019 [facility] 1:20 PM [facility] Sodium 139 135 - 145 02/14/2019 [facility] mEq/L 1:20 PM [facility] Potassium 3.5 3.5 - 5.1 02/14/2019 [facility] mEq/L 1:20 PM [facility] Chloride 100 98 - 107 02/14/2019 [facility] mEq/L 1:20 PM [facility] CO2 30 (H) 22 - 29 02/14/2019 [facility] mmol/L 1:20 PM [facility] BUN 16 5 - 25 02/14/2019 [facility] mg/dL 1:20 PM [facility] Creatinine 0.6 0.4 - 1.2 02/14/2019 [facility] mg/dL 1:20 PM [facility] Glucose 90 70 - 100 02/14/2019 [facility] mg/dL 1:20 PM [facility] Calcium, Total,S 9.7 8.4 - 10.2 02/14/2019 [facility] mg/dL 1:20 PM [facility] Specimen Anatomical Collection Method Collection Time Receive d Time (Source) Location / / Volume Laterality Blood 02/13/2019 4:25 PM 0 PROTOTYPE FABRICATOR 12:16 PM PROTOTYPE FABRICATOR Katty Rojas APRN, WEATHER FORCASTER LAB BLOOD ORDERABLES Performing Organization Address City/State/ZIP Code Phon e Number [facility] [address] [place] [address] (ABNORMAL) Lipid panel (02/13/2019 4:25 PM PROTOTYPE FABRICATOR) athologist Signature Cholesterol 276 (A) 0 - 199 02/14/2019 [facility] mg/dL 1:20 PM [facility] Comment: Recommended by National Cholesterol Education Program (ATP III) -------- Cholesterol Ranges -------- <200 ? Desirable 200-239 ? Borderline high >=240 ? High Triglycerides 74 0 - 149 mg/dL 02/14/2019 1:20 PM [facility] Comment: -------- TRIG Ranges -------- <150 ?Normal 150-199 ? Borderline high 200-499 ? High >=500 ? Very high HDL 58 40 - 60 mg/dL 02/14/2019 1:20 PM [facility] Comment: -------- HDL Ranges -------- <40 ?Low 40-59 ?Normal >=60 ? Optimal LDL Calculated 203 (A) 0 - 99 mg/dL 02/14/2019 1:20 PM [facility] Comment: -------- LDL Ranges -------- <100 ? Optimal 100-129 ?Near optimal/above op timal 130-159 ?Borderline high 160-189 ?High >=190 ?Very high Fasting? Yes 02/13/2019 4:32 PM [facility] Specimen Anatomical Collection Method Collection Time Receive d Time (Source) Location / / Volume Laterality Blood 02/13/2019 4:25 PM 0 PROTOTYPE FABRICATOR 12:16 PM PROTOTYPE FABRICATOR Katty Rojas APRN, WEATHER FORCASTER LAB BLOOD ORDERABLES Performing Organization Address City/State/ZIP Code Phon e Number [facility] [address] [place] [address] Insulin, serum (02/13/2019 4:25 PM PROTOTYPE FABRICATOR) athologist Signature Insulin 8.2 2.6 - 24.9 02/14/2019 [facility] mcIU/mL 7:46 PM PROTOTYPE FABRICATOR LABORATORIES Comment: Test Performed by: [facility] [address] [place] [address] Geophysical Prospecting Permit Agent: Anson Powell M.D. Ph. D.; CLIA# [id number] Specimen Anatomical Collection Method Collection Time Receive d Time (Source) Location / / Volume Laterality Blood (Blood, 02/13/2019 4:25 PM 02/14/19 20 Venous) PROTOTYPE FABRICATOR 12:54 PM PROTOTYPE FABRICATOR Katty Rojas APRN, CNP LAB BLOOD ORDERABLES Performing Organization Address City/[facility]/ZIP Code Phon e Number [facility] see result attachment for specific address (ABNORMAL) Vitamin B6 (02/13/2019 4:25 PM PROTOTYPE FABRICATOR) athologist Signature Pyridoxal 3 (L) 5 - 50 02/18/2019 [facility] 5-Phosphate mcg/L 1:15 PM PROTOTYPE FABRICATOR LABORATORIES Comment: ADDITIONAL INFORMATIO N This test was developed and its performa nce characteristics determined by [facility] in a manner co nsistent with CLIA requirements. This test has not been leobardo ared or approved by the U.S. Food and Drug Administration. Test Performed by: [facility] [place] [address] Geophysical Prospecting Permit Agent: Anson Powell M.D. Ph. D.; CLIA# [id number] Specimen Anatomical Collection Method Collection Time Receive d Time (Source) Location / / Volume Laterality Blood (Blood, 02/13/2019 4:25 PM 02/14/19 20 Venous) PROTOTYPE FABRICATOR 12:54 PM PROTOTYPE FABRICATOR Narrative [facility] - 02/18/2019 1 :15 PM PROTOTYPE FABRICATOR Called to CALL CANCELLED - RESULTS FAXED , , 07:32 02/18/2019 TLR01 Katty Rojas APRN, CNP LAB BLOOD ORDERABLES Performing Organization Address City/State/ZIP Code Phon e Number [facility] see result attachment for specific address Vitamin A (02/13/2019 4:25 PM PROTOTYPE FABRICATOR) athologist Signature Free Retinol 54.8 32.5 - 02/18/2019 [facility] (Vit A) 78.0 8:51 AM PROTOTYPE FABRICATOR LABORATORIES mcg/dL Comment: ADDITIONAL INFORMATIO N This test was developed and its performa nce characteristics determined by [facility] in a manner co nsistent with CLIA requirements. This test has not been leobardo ared or approved by the U.S. Food and Drug Administration. Test Performed by: [facility] [address] [place] [address] Geophysical Prospecting Permit Agent: Anson Powell M.D. Ph. D.; CLIA# [id number] Specimen Anatomical Collection Method Collection Time Receive d Time (Source) Location / / Volume Laterality Blood (Blood, 02/13/2019 4:25 PM 02/14/19 20 Venous) PROTOTYPE FABRICATOR 12:54 PM PROTOTYPE FABRICATOR Narrative [facility] - 02/18/2019 8 :51 AM PROTOTYPE FABRICATOR Called to CALL CANCELLED - RESULTS FAXED , , 07:32 02/18/2019 TLR01 Katty Rojas APRN, CNP LAB BLOOD ORDERABLES Performing Organization Address City/State/ZIP Code Phon e Number [facility] see result attachment for specific address Vitamin B1, whole blood (02/13/2019 4:25 PM PROTOTYPE FABRICATOR) athologist Signature Thiamin 119 70 - 180 02/18/2019 [facility] (Vitamin B1) nmol/L 12:53 PM PROTOTYPE FABRICATOR LABORATORIES Comment: ADDITIONAL INFORMATIO N This test was developed and its performa nce characteristics determined by [facility] in a manner co nsistent with CLIA requirements. This test has not been leobardo ared or approved by the U.S. Food and Drug Administration. Test Performed by: [facility] [employer] [address] [place] [phone] Geophysical Prospecting Permit Agent: Anson Powell M.D. Ph. D.; CLIA# [id number] Specimen Anatomical Collection Method Collection Time Receive d Time (Source) Location / / Volume Laterality Blood (Blood, 02/13/2019 4:25 PM 02/14/19 20 Venous) PROTOTYPE FABRICATOR 12:54 PM PROTOTYPE FABRICATOR [facility] - 02/18/2019 1 2:53 PM PROTOTYPE FABRICATOR Called to CALL CANCELLED - RESULTS FAXED , , 07:32 02/18/2019 TLR01 Katty Rojas APRN, CNP LAB BLOOD ORDERABLES Performing Organization Address City/State/ZIP Code Phon e Number [facility] see result attachment for specific address Iron level (02/13/2019 4:25 PM PROTOTYPE FABRICATOR) athologist [facility] Iron (FE) 136 37 - 170 02/14/2019 [facility] mcg/dL 1:17 PM PROTOTYPE FABRICATOR [facility] Specimen Anatomical Collection Method Collection Time Receive d Time (Source) Location / / Volume Laterality Blood (Blood, 02/13/2019 4:25 PM 02/14/19 20 Venous) PROTOTYPE FABRICATOR 12:16 PM PROTOTYPE FABRICATOR Katty Rojas APRN, CNP LAB BLOOD ORDERABLES Performing Organization Address City/[facility]/ZIP Code Phon e Number [facility] [address] [place] [phone] Folate (02/13/2019 4:25 PM PROTOTYPE FABRICATOR) athologist Signature Folate 11.6 >=2.8 ng/mL 02/14/2019 [facility] 2:25 PM PROTOTYPE FABRICATOR [facility] Comment: The results from this [...] (Blood, 02/13/2019 4:25 PM 02/14/19 20 Venous) PROTOTYPE FABRICATOR 12:28 PM PROTOTYPE FABRICATOR Katty Rojas APRN, CNP LAB BLOOD ORDERABLES Performing Organization Address [facility] Phon e Number [facility] [address] [place] [phone] Ferritin (02/13/2019 4:25 PM PROTOTYPE FABRICATOR) athologist [facility] Ferritin 42 6 - 137 02/14/2019 [facility] ng/mL 2:10 PM PROTOTYPE FABRICATOR [facility] Comment: The results from this [...] (Blood, 02/13/2019 4:25 PM 02/14/19 20 Venous) PROTOTYPE FABRICATOR 12:28 PM PROTOTYPE FABRICATOR Katty Rojas APRN, CNP LAB BLOOD ORDERABLES Performing Organization Address [facility] Phon e Number [facility] [address] [place] [phone] Vitamin D, Total (02/13/2019 4:25 PM PROTOTYPE FABRICATOR) athologist [facility] Vitamin D, 37.9 ng/mL 02/14/2019 [facility] Total 1:17 PM PROTOTYPE FABRICATOR [facility] Comment: Deficient ?<20 ? ng/mL Insufficient ? 20-<30 ??ng/mL Sufficient ? 30-100 ??ng/mL Vitamin D2/D3 fractionation is recommend ed at the discretion of the clinician if Total Vitamin D is w ithin deficient or insufficient range. Specimen Anatomical Collection Method Collection Time Receive d Time (Source) Location / / Volume Laterality Blood 02/13/2019 4:25 PM 0 PROTOTYPE FABRICATOR 12:16 PM PROTOTYPE FABRICATOR Katty Rojas APRN, WEATHER FORCASTER LAB BLOOD ORDERABLES Performing Organization Address City/State/ZIP Code Phon e Number [facility] [address] [place] [phone] documented in this encounter Visit Diagnoses Diagnosis S/P laparoscopic sleeve gastrectomy Morbid obesity (HCC) Morbid obesity Hyperlipidemia, unspecified hyperlipidem ia type documented in this encounter Care Teams Controls Operator Molded Goods Relationship Specialty Start Date End Date Katty Rojas APRN, WEATHER FORCASTER PCP - General 09/11/17 10/13/19 [address] [place] [address] documented as of this encounter
--- OUTSIDE RECORDS SUMMARY | 2022-01-12 16:25 | XMS_ITS | Encounter Summary ---
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 [facility] ? [address] ?[place] [address] ? Patient: ?MIRELLA JOHNSON ?Procedure: ? 12/01/2019 10:11 /Age/Sex: ??1975, 44 Y, F ?Received: ?12/01/2019 13:46 ? Accession #: ?? [id number] Billing: ?[id number] ? Patient Location: [facility] Ordered by: ?? ANILA HERNÁNDEZ MD [...] Organization Address City/State/ZIP Code Phon e Number [facility] [address] [place] [address] HPV High Risk DNA Detection with Genotyping (12/01/2019 10:11 AM CDT) [facility] Method Time Signature Source Cervical 12/03/2019 [facility] 5:18 PM CDT LABORATORIES HPV Type 16 Negative Negative 12/03/2019 [facility] 5:18 PM CDT LABORATORIES HPV Type 18 Negative Negative 12/03/2019 [facility] 5:18 PM CDT LABORATORIES HPV non-Type Negative Negative 12/03/2019 [facility] 16 or 18 5:18 PM CDT LABORATORIES Comment: The following Other High Risk HPV types were not detected: 31, 33, 35, 39, 45, 51, 52, 56, 58, 59, 66, and 68 ADDITIONAL INFORMATIO N This test has been modified from the man ufacturer's instructions. Its performance characteri stics were determined by [facility] in a manner co nsistent with CLIA requirements. This test has not been leobardo ared or approved by the U.S. Food and Drug Administration. Test Performed by: [facility] - [address] [address] Hotel [employer] Motel Cleaning Supervisor: Anson Powell M.D. Ph. D.; CLIA# [id number] Specimen (Source) Anatomical Collection Method Collection Time Re ceived Time Location / / Volume Laterality Pap collection 12/01/2019 10:11 0 1:35 bottle AM CDT PM CDT Anila Hernández MD LAB CYTOLOGY ORDERABLES Performing Organization Address City/State/ZIP Code Phon e Number [facility] see result attachment for specific address Pap Smear (12/01/2019 10:11 AM CDT) Specimen Anatomical Collection Method Collection Time Receive d Time (Source) Location / / Volume Laterality Sure Path PAP, 12/01/2019 10:11 0 3:11 screen AM CDT PM CDT Narrative [facility] - 11/06 3:57 PM CDT ? [facility] ? [address] ?[place] [address] ? Patient: ?MIRELLA JOHNSON ? Procedure: ? 12/01/2019 10:11 /Age/Sex: ??1975, 44 Y, F ? Received: ?12/01/2019 15:11 ?Accession #: ?? [id number] Billing: ?[id number] ?Patient Location: [facility] Ordered by: ?? ANILA HERNÁNDEZ MD ?Attending: ? ANILA HERNÁNDEZ MD ? AUTOMOTIVE PARTS COORDINATOR CYTOLOGY FINAL REPORT SPECIMEN: (A) SURE PATH [...] Organization Address City/State/ZIP Code Phon e Number [facility] [address] [place] [address] documented in this encounter Visit Diagnoses Diagnosis [...] nursing. documented in this encounter Care Teams Alpine Guide Relationship Specialty Start Date End Date None, Pcp PCP - General Electrical Tests Supervisor 12/01/19 02/25/[address] [place] [address] documented as of this encounter
--- OUTSIDE RECORDS SUMMARY | 2022-01-12 16:25 | XMS_ITS | Encounter Summary ---
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 MANAGER documented as of this encounter Last Filed Vital Signs Vital Sign Reading Time Taken Comments Blood Pressure 128/94 03/05/2020 1:18 PM CHANGE RELEASE MANAGER Pulse - - Temperature - - Respiratory Rate - - Oxygen Saturation - - Inhaled Oxygen Concentration - - Weight - - Height - - Body Mass Index - - documented in this encounter Plan of Treatment Not on filedocumented as of this encounter Visit Diagnoses Not on filedocumented in this encounter Care Teams Pay Clerk Relationship Specialty Start Date End Date Lee Hannon MD PCP - General Family Medicine 02/26/20 03/20/[address] [place] [address] documented as of this encounter
--- OUTSIDE RECORDS SUMMARY | 2022-01-12 16:25 | XMS_ITS | Encounter Summary ---
:1975 Author Organization [facility] Address [address] [place] [address] Care Team Providers Name Role Phone Katty Rojas APRN, EQUIPMENT PLANNER Primary Care Provider [phone] Encounter Details Date Type Department Care Team Description 02/10/2019 Lab [place] Essential hypertension [address] [place], [place] [address] Social History Tobacco Use [...] at Date Recorded Female 04/13/2021 4:03 PM ASSORTER documented as of this encounter Plan of Treatment Not on filedocumented as of this encounter Procedures Procedure Name Priority Date/Time Associated Diagnosis Comme nts GLOMERULAR Routine 02/10/2019 3:47 PM Essential Results f or this FILTRATION RATE ASSORTER hypertension procedure ar e in the results section. BASIC METABOLIC Routine 02/10/2019 3:47 PM Essential Result s for this PANEL ASSORTER hypertension procedure are i n the results section. documented in this encounter Results Glomerular filtration rate (GFR) (02/10/2019 3:47 PM ASSORTER) P athologist Signature GFR >60 02/10/2019 [facility] 4:11 PM ASSORTER [facility] >60 02/10/2019 [facility] Ivorian GFR 4:11 PM [facility] Comment: GFR calculated from serum creatinine v alue Chronic Kidney Disease less than 60 mL/m in/1.73 m2 Kidney Failure less than 15 mL/min/1.73 m2 Note: effective 06/20/06 IDMS-Traceable MDRD Study Equation used. Specimen Anatomical Collection Method Collection Time Receive d Time (Source) Location / / Volume Laterality 02/10/2019 3:47 PM 0 3:47 ASSORTER PM ASSORTER Katty Rojas APRN, CNP LAB BLOOD ORDERABLES Performing Organization Address City/[facility]/ZIP Code Phon e Number [facility] [address] [place] [phone] (ABNORMAL) Basic metabolic panel (02/10/2019 3:47 PM ASSORTER) P athologist Signature Sodium 141 135 - 145 02/10/2019 [facility] mmol/L 4:11 PM [facility]TER [place] Potassium 3.8 3.5 - 5.1 02/10/2019 [facility] mmol/L 4:11 PM [facility] [place] Comment: . Chloride 104 98 - 107 mmol/L 02/10/2019 4:11 PM ASSORTER [facility] [place] Comment: . CO2 30 (H) 22 - 29 mmol/L 02/10/2019 4:11 PM ASSORTER [facility] [place] Comment: . Creatinine 0.8 0.4 - 1.2 mg/dL 02/10/2019 4:11 PM ASSORTER [facility] Comment: . BUN 21 5 - 25 mg/dL 02/10/2019 4:11 PM ASSORTER [facility] Comment: . Glucose 105 (H) 70 - 100 mg/dL 02/10/2019 4:11 PM ASSORTER [facility] [place] Calcium, Total,S 9.7 8.4 - 10.2 mg/dL 02/10/2019 4:11 PM ASSORTER [facility] Comment: . Fasting? No 02/10/2019 3:49 PM [facility]TER [facility] Specimen Anatomical Collection Method Collection Time Receive d Time (Source) Location / / Volume Laterality Blood 02/10/2019 3:47 PM 0 3:49 ASSORTER PM ASSORTER Katty Rojas APRN, CNP LAB BLOOD ORDERABLES Performing Organization Address City/State/ZIP Code Phon e Number [facility] [place] [address] [place] [address] documented in this encounter Visit Diagnoses Diagnosis Essential hypertension Unspecified essential hypertension documented in this encounter Care Teams Repeat Photocomposing Machine Operator Relationship Specialty Start Date End Date Katty Rojas, AUTOMOBILE BODY WORKER, EQUIPMENT PLANNER PCP - General 09/11/17 10/13/19 100 [facility] [place] [address] documented as of this encounter
--- OUTSIDE RECORDS SUMMARY | 2022-01-12 16:25 | XMS_ITS | Encounter Summary ---
:[address] [facility] Address [address] [place] [address] Care Team Providers Name Role Phone Katty Rojas APRN, HERBERT Primary Care Provider [phone] Reason for Visit Reason Comments Follow-up Medication visit Encounter Details Date Type Department Care Team Description 02/13/2019 Office Visit [place] Katty Rojas Essential hypertension (Prim foreign Dx); [address] [place], HERBERT ZAVALA Anxiety; [place] [address] Restless legs; [address] [place], [place] Hyperlipidemia, unspecified hyperlipidemia type; [phone] Reactive airway disease without complica tion, unspecified asthma severity, unspecified whether persistent; [phone] S/P laparoscopi c sleeve gastrectomy; (Work) Morbid [...] at Date Recorded Female 04/13/2021 4:03 PM CRANE HOIST OR LIFT OPERATOR documented as of this encounter Last Filed Vital Signs Vital Sign Reading Time Taken Comments Blood Pressure 110/82 02/13/2019 3:42 PM CRANE HOIST OR LIFT OPERATOR Pulse 97 02/13/2019 3:42 PM CRANE HOIST OR LIFT OPERATOR Temperature 35.9 ??C (96.7 ??F) 02/13/2019 3:42 PM CRANE HOIST OR LIFT OPERATOR Respiratory Rate 18 02/13/2019 3:42 PM CRANE HOIST OR LIFT OPERATOR Oxygen Saturation 94% 02/13/2019 3:42 PM CRANE HOIST OR LIFT OPERATOR Inhaled Oxygen Concentration - - Weight 110 kg (242 lb 8.1 oz) 02/13/2019 3:42 PM CRANE HOIST OR LIFT OPERATOR Height 160 cm (5' 3) 02/13/2019 3:42 PM CRANE HOIST OR LIFT OPERATOR Body Mass Index 42.96 02/13/2019 3:42 PM CRANE HOIST OR LIFT OPERATOR documented in this encounter Patient Instructions Patient InstructionsChjoshua Rojas APRN, CNP - 02/13/2019 3:40 PM CRANE HOIST OR LIFT OPERATOR Will call with the lab results No medication changes E HOIST OR LIFT OPERATOR documented in this encounter Progress Notes [...] control of those symptoms. REVIEW OF SYSTEMS: CRYOGENICS REPAIRER: See HPI. The patient had the Mirena [...] and understands this plan of care. Katty Rojas APRN, CHARTER COORDINATOR E HOIST OR LIFT OPERATOR documented in this encounter Plan of Treatment Not on filedocumented as of this encounter Results Vitamin D, Total (02/13/2019 4:25 PM CRANE HOIST OR LIFT OPERATOR) athologist Signature Vitamin D, 37.9 ng/mL 02/14/2019 [facility] Total 1:17 PM CRANE HOIST OR LIFT OPERATOR [facility] Comment: Deficient ?<20 ? ng/mL Insufficient ? 20-<30 ??ng/mL Sufficient ? 30-100 ??ng/mL Vitamin D2/D3 fractionation is recommend ed at the discretion of the clinician if Total Vitamin D is w ithin deficient or insufficient range. Specimen Anatomical Collection Method Collection Time Receive d Time (Source) Location / / Volume Laterality Blood 02/13/2019 4:25 PM 0 CRANE HOIST OR LIFT OPERATOR 12:16 PM CRANE HOIST OR LIFT OPERATOR Katty Rojas APRN, CNP LAB BLOOD ORDERABLES Performing Organization Address City/State/ZIP Code Phon e Number [facility] [address] [place] [address] Ferritin (02/13/2019 4:25 PM CRANE HOIST OR LIFT OPERATOR) athologist Signature Ferritin 42 6 - 137 02/14/2019 [facility] ng/mL 2:10 PM CRANE HOIST OR LIFT OPERATOR [facility] Comment: The results from [...] (Blood, 02/13/2019 4:25 PM 02/14/19 20 Venous) CRANE HOIST OR LIFT OPERATOR 12:28 PM CRANE HOIST OR LIFT OPERATOR Katty Rojas APRN, CNP LAB BLOOD ORDERABLES Performing Organization Address [facility] Phon e Number [facility] [address] [place] [phone] Folate (02/13/2019 4:25 PM CRANE HOIST OR LIFT OPERATOR) athologist Signature Folate 11.6 >=2.8 ng/mL 02/14/2019 [facility] 2:25 PM CRANE HOIST OR LIFT OPERATOR [facility] Comment: The results from [...] (Blood, 02/13/2019 4:25 PM 02/14/19 20 Venous) CRANE HOIST OR LIFT OPERATOR 12:28 PM CRANE HOIST OR LIFT OPERATOR Katty Rojas APRN, CNP LAB BLOOD ORDERABLES Performing Organization Address [facility] Phon e Number [facility] [address] [place] [phone] Iron level (02/13/2019 4:25 PM CRANE HOIST OR LIFT OPERATOR) athologist [facility] Iron (FE) 136 37 - 170 02/14/2019 [facility] mcg/dL 1:17 PM CRANE HOIST OR LIFT OPERATOR [facility] Specimen Anatomical Collection Method Collection Time Receive d Time (Source) Location / / Volume Laterality Blood (Blood, 02/13/2019 4:25 PM 02/14/19 20 Venous) CRANE HOIST OR LIFT OPERATOR 12:16 PM CRANE HOIST OR LIFT OPERATOR Katty Rojas APRN, CNP LAB BLOOD ORDERABLES Performing Organization Address [facility] Phon e Number [facility] [address] [place] [phone] Vitamin B1, whole blood (02/13/2019 4:25 PM CRANE HOIST OR LIFT OPERATOR) athologist Signature Thiamin 119 70 - 180 02/18/2019 [facility] (Vitamin B1) nmol/L 12:53 PM CRANE HOIST OR LIFT OPERATOR LABORATORIES Comment: ADDITIONAL INFORMATIO N This test was developed and its performa nce characteristics determined by [facility] in a manner co nsistent with CLIA requirements. This test has not been leobardo ared or approved by the U.S. Food and Drug Administration. Test Performed by: [facility] [place] [address] Livestock Exhibitor: Anson Powell M.D. Ph. D.; CLIA# [id number] Specimen Anatomical Collection Method Collection Time Receive d Time (Source) Location / / Volume Laterality Blood (Blood, 02/13/2019 4:25 PM 02/14/19 20 Venous) CRANE HOIST OR LIFT OPERATOR 12:54 PM CRANE HOIST OR LIFT OPERATOR Narrative [facility] - 02/18/2019 1 2:53 PM CRANE HOIST OR LIFT OPERATOR Called to CALL CANCELLED - RESULTS FAXED , , 07:32 02/18/2019 TLR01 Katty Rojas APRN, CNP LAB BLOOD ORDERABLES Performing Organization Address City/State/ZIP Code Phon e Number [facility] see result attachment for specific address Vitamin A (02/13/2019 4:25 PM CRANE HOIST OR LIFT OPERATOR) athologist Signature Free Retinol 54.8 32.5 - 02/18/2019 [facility] (Vit A) 78.0 8:51 AM CRANE HOIST OR LIFT OPERATOR LABORATORIES mcg/dL Comment: ADDITIONAL INFORMATIO N This test was developed and its performa nce characteristics determined by [facility] in a manner co nsistent with CLIA requirements. This test has not been leobardo ared or approved by the U.S. Food and Drug Administration. Test Performed by: [facility] - [facility] [employer] [address] [place] [address] Livestock Exhibitor: Anson Powell M.D. Ph. D.; CLIA# [id number] Specimen Anatomical Collection Method Collection Time Receive d Time (Source) Location / / Volume Laterality Blood (Blood, 02/13/2019 4:25 PM 02/14/19 20 Venous) CRANE HOIST OR LIFT OPERATOR 12:54 PM CRANE HOIST OR LIFT OPERATOR Narrative [facility] - 02/18/2019 8 :51 AM CRANE HOIST OR LIFT OPERATOR Called to CALL CANCELLED - RESULTS FAXED , , 07:32 02/18/2019 TLR01 Katty Rojas APRN, CNP LAB BLOOD ORDERABLES Performing Organization Address City/[facility]/ZIP Code Phon e Number [facility] see result attachment for specific address (ABNORMAL) Vitamin B6 (02/13/2019 4:25 PM CRANE HOIST OR LIFT OPERATOR) [facility] Tol[facility]ologist [facility] Pyridoxal 3 (L) 5 - 50 02/18/2019 [facility] 5-Phosphate mcg/L 1:15 PM CRANE HOIST OR LIFT OPERATOR LABORATORIES Comment: ADDITIONAL INFORMATIO N This test was developed and its performa nce characteristics determined by [facility] in a manner co nsistent with CLIA requirements. This test has not been leobardo ared or approved by the U.S. Food and Drug Administration. Test Performed by: [facility] [address] [place] [address] Livestock Exhibitor: Anson Powell M.D. Ph. D.; CLIA# [id number] Specimen Anatomical Collection Method Collection Time Receive d Time (Source) Location / / Volume Laterality Blood (Blood, 02/13/2019 4:25 PM 02/14/19 20 Venous) CRANE HOIST OR LIFT OPERATOR 12:54 PM CRANE HOIST OR LIFT OPERATOR Narrative [facility] - 02/18/2019 1 :15 PM CRANE HOIST OR LIFT OPERATOR Called to CALL CANCELLED - RESULTS FAXED , , 07:32 02/18/2019 TLR01 Katty Rojas APRN, CNP LAB BLOOD ORDERABLES Performing Organization Address City/[facility]/ZIP Code Phon e Number [facility] see result attachment for specific address Insulin, serum (02/13/2019 4:25 PM CRANE HOIST OR LIFT OPERATOR) athologist [facility] Insulin 8.2 2.6 - 24.9 02/14/2019 [facility] mcIU/mL 7:46 PM CRANE HOIST OR LIFT OPERATOR LABORATORIES Comment: Test Performed by: [facility] [address] [place] [address] Livestock Exhibitor: Anson Powell M.D. Ph. D.; IA# [id number] Specimen Anatomical Collection Method Collection Time Receive d Time (Source) Location / / Volume Laterality Blood (Blood, 02/13/2019 4:25 PM 02/14/19 20 Venous) CRANE HOIST OR LIFT OPERATOR 12:54 PM CRANE HOIST OR LIFT OPERATOR Katty Rojas STUCCO APPLICATOR, CHARTER COORDINATOR LAB BLOOD ORDERABLES Performing Organization Address City/State/ZIP Code Phon e Number [facility] see result attachment for specific address (ABNORMAL) Lipid panel (02/13/2019 4:25 PM CRANE HOIST OR LIFT OPERATOR) athologist [facility] Cholesterol 276 (A) 0 - 199 02/14/2019 [facility] mg/dL 1:20 PM [facility] Comment: Recommended by National Cholesterol Education Program (ATP III) -------- Cholesterol Ranges -------- <200 ? Desirable 200-239 ? Borderline high >=240 ? High Triglycerides 74 0 - 149 mg/dL 02/14/2019 1:20 PM [facility] Comment: -------- TRIG Ranges -------- <150 ?Normal 150-199 ? Borderline high 200-499 ? High >=500 ? Very high HDL 58 40 - 60 mg/dL 02/14/2019 1:20 PM [facility] Comment: -------- HDL Ranges -------- <40 ?Low 40-59 ?Normal >=60 ? Optimal LDL Calculated 203 (A) 0 - 99 mg/dL 02/14/2019 1:20 PM [facility] Comment: -------- LDL Ranges -------- <100 ? Optimal 100-129 ?Near optimal/above op timal 130-159 ?Borderline high 160-189 ?High >=190 ?Very high Fasting? Yes 02/13/2019 4:32 PM [facility] Specimen Anatomical Collection Method Collection Time Receive d Time (Source) Location / / Volume Laterality Blood 02/13/2019 4:25 PM 0 CRANE HOIST OR LIFT OPERATOR 12:16 PM CRANE HOIST OR LIFT OPERATOR Katty Rojas APRN, CHARTER COORDINATOR LAB BLOOD ORDERABLES Performing Organization Address City/State/ZIP Code Phon e Number [facility] [address] [place] [address] (ABNORMAL) Comprehensive metabolic panel (02/13/2019 4:25 PM CRANE HOIST OR LIFT OPERATOR) Analysis Performed At Patho logist Time Signature Total Protein 6.9 6.3 - 8.2 02/14/2019 [facility] g/dL 1:20 PM [facility] Albumin, Serum 4.0 3.5 - 5.0 02/14/2019 [facility] g/dL 1:20 PM [facility] Total Bilirubin <0.7 0.1 - 1.0 02/14/2019 [facility] mg/dL 1:20 PM [facility] AST 20 8 - 43 U/L 02/14/2019 [facility] 1:20 PM [facility] Alkaline 83 38 - 128 02/14/2019 [facility] Phosphatase U/L 1:20 PM [facility] ALT (SGPT) 27 0 - 34 U/L 02/14/2019 [facility] 1:20 PM [facility] Sodium 139 135 - 145 02/14/2019 [facility] mEq/L 1:20 PM [facility] Potassium 3.5 3.5 - 5.1 02/14/2019 [facility] mEq/L 1:20 PM [facility] Chloride 100 98 - 107 02/14/2019 [facility] mEq/L 1:20 PM [facility] CO2 30 (H) 22 - 29 02/14/2019 [facility] mmol/L 1:20 PM [facility] BUN 16 5 - 25 02/14/2019 [facility] mg/dL 1:20 PM [facility] Creatinine 0.6 0.4 - 1.2 02/14/2019 [facility] mg/dL 1:20 PM [facility] Glucose 90 70 - 100 02/14/2019 [facility] mg/dL 1:20 PM [facility] Calcium, Total,S 9.7 8.4 - 10.2 02/14/2019 [facility] mg/dL 1:20 PM [facility] Specimen Anatomical Collection Method Collection Time Receive d Time (Source) Location / / Volume Laterality Blood 02/13/2019 4:25 PM 0 CRANE HOIST OR LIFT OPERATOR 12:16 PM CRANE HOIST OR LIFT OPERATOR Ktaty Rojas APRN, CNP LAB BLOOD ORDERABLES Performing Organization Address City/State/ZIP Code Phon e Number [facility] [address] [place] [address] CBC Branch Off w/Diff (02/13/2019 4:25 PM CRANE HOIST OR LIFT OPERATOR) P athologist Signature WBC 6.9 3.5 - 10.5 02/13/2019 [facility] K/uL 4:48 PM CRANE HOIST OR LIFT OPERATOR [place] RBC 4.43 3.90 - 02/13/2019 [facility] 5.00 M/uL 4:48 PM CRANE HOIST OR LIFT OPERATOR [place] Hemoglobin 13.4 12.0 - 02/13/2019 [facility] 15.5 g/dL 4:48 PM CRANE HOIST OR LIFT OPERATOR [place] Hematocrit 41.0 35.0 - 02/13/2019 [facility] 44.0 % 4:48 PM CRANE HOIST OR LIFT OPERATOR [place] Platelets 397 150 - 450 02/13/2019 [facility] K/uL 4:48 PM CRANE HOIST OR LIFT OPERATOR [place] MCV 92.6 81.6 - 02/13/2019 [facility] 98.3 fL 4:48 PM CRANE HOIST OR LIFT OPERATOR [place] MCH 30.2 26.0 - 02/13/2019 [facility] 32.0 pg 4:48 PM CRANE HOIST OR LIFT OPERATOR [place] MCHC 32.7 32.0 - 02/13/2019 [facility] 36.0 g/dL 4:48 PM CRANE HOIST OR LIFT OPERATOR [place] RDW 13.2 11.9 - 02/13/2019 [facility] 15.5 % 4:48 PM CRANE HOIST OR LIFT OPERATOR [place] Lymphocytes % 32.7 18.0 - 02/13/2019 [facility] 45.0 % 4:48 PM CRANE HOIST OR LIFT OPERATOR [place] Mid-size Cells 10.0 3.3 - 10.1 02/13/2019 [facility] % 4:48 PM CRANE HOIST OR LIFT OPERATOR [place] Granulocytes/Percy 57.3 45.8 - 02/13/2019 [facility] trophils 73.7 % 4:48 PM CRANE HOIST OR LIFT OPERATOR [place] Lymphocytes 2.3 0.9 - 2.9 02/13/2019 [facility] Absolute K/uL 4:48 PM CRANE HOIST OR LIFT OPERATOR [place] MIDS Absolute 0.7 0.2 - 0.8 02/13/2019 [facility] K/uL 4:48 PM CRANE HOIST OR LIFT OPERATOR [place] Granulocytes/Percy 3.9 2.1 - 8.7 02/13/2019 [facility] trophils K/uL 4:48 PM CRANE HOIST OR LIFT OPERATOR [place] Absolute Specimen Anatomical Collection Method Collection Time Receive d Time (Source) Location / / Volume Laterality Blood 02/13/2019 4:25 PM 0 4:25 CRANE HOIST OR LIFT OPERATOR PM CRANE HOIST OR LIFT OPERATOR Katty Rojas APRN, CNP LAB BLOOD ORDERABLES Performing Organization Address [facility] Phon e Number [facility] [place] [address] [place] [address] Vitamin B12 (02/13/2019 4:25 PM CRANE HOIST OR LIFT OPERATOR) P athologist Signature Vitamin B-12 848 227 - 278 02/14/2019 [facility] pg/mL 2:25 PM CRANE HOIST OR LIFT OPERATOR [facility] Comment: The results from [...] Volume Laterality Blood 02/13/2019 4:25 PM 0 CRANE HOIST OR LIFT OPERATOR 12:28 PM CRANE HOIST OR LIFT OPERATOR Katty Rojas APRN, CNP LAB BLOOD ORDERABLES Performing Organization Address City/[facility]/ZIP Code Phon e Number [facility] [address] [place] [address] documented in this encounter Visit Diagnoses Diagnosis [...] type documented in this encounter Care Teams Melt Room Operator Relationship Specialty Start Date End Date Katty Rojas APRN, CHARTER COORDINATOR PCP - General 09/11/17 10/13/[address] [place] [id number] documented as of this encounter
--- OUTSIDE RECORDS SUMMARY | 2022-01-12 16:25 | XMS_ITS | Encounter Summary ---
:1975 Author Organization [facility] Address [address] [place] [address] Care Team Providers Name Role Phone Katty Rojas APRN, HERBERT Primary Care Provider [phone] Reason for Visit Reason Onset Date Comments prescription questions 05/23/2018 Encounter Details Date Type Department Care Team Description 05/23/2018 [place]phone [place], prescription questions [address] [place]AV[place], [place] 100 [facility] [address] [place] [address] Social History Tobacco Use Types Packs/Day Years [...] at Date Recorded Female 04/13/2021 4:03 PM SENIOR CAREGIVER documented as of this encounter Miscellaneous Notes [...] on filedocumented in this encounter Care Teams Patient Safety Coordinator Relationship Specialty Start Date End Date Katty Rojas APRN, XEROX MACHINE ASSEMBLER PCP - General 09/11/17 10/13/[address] [place] [address] [place] [address] documented as of this encounter
--- OUTSIDE RECORDS SUMMARY | 2022-01-12 16:25 | XMS_ITS | Encounter Summary ---
:1975 Author Organization [facility] Address [address] [place] [address] Care Team Providers Name Role Phone Katty Rojas APRN, CNP Primary Care Provider [phone] Encounter Details Date Type Department Care Team Description 05/21/2018 Orders Only [place], Depression, [address] [place] [address] depression type [id number] [place] [id number] Social History Tobacco Use Types Packs/Day Years [...] at Date Recorded Female 04/13/2021 4:03 PM PRESS BREAKER documented as of this encounter Plan of Treatment Not on filedocumented as of this encounter Visit Diagnoses Diagnosis Depression, unspecified depression type documented in this encounter Care Teams Assessment Technician Relationship Specialty Start Date End Date Katty Rojas APRN, HERBERT PCP - General 09/11/17 10/13/19 [address] [place] [id number] documented as of this encounter
--- OUTSIDE RECORDS SUMMARY | 2022-01-12 16:25 | XMS_ITS | Encounter Summary ---
:1975 Author Organization [facility] Address [address] [place] [address] Care Team Providers Name Role Phone None, Pcp Primary Care Provider Unavailable Encounter Details Date Type Department Care Team Description 02/13/2020 Procedure visit [facility] Palpitations [address] [place] [address] Social History Tobacco Use Types Packs/Day Years [...] at Date Recorded Female 04/13/2021 4:03 PM SUCTION WORKER documented as of this encounter Progress Notes Nirali Shearer LPN - 02/13/2020 11:40 AM CST Nurse Procedure Note Procedures ECG completed ECG transmitted to Cardiology Previous ECG noted 01/12/16 N/S rhythm Pt denies Chest pain, palpitations, SOB today. Code R55 ION WORKER Ashely Peterson MD - 02/13/2020 11:40 AM CST Please call patient and notify that her EKG result showed a few very minor changes which mean it would be a good idea to meet with a die trimmer, especially considering her symptoms of palpitations recently. Referral was placed -- they should be calling her to make an appointment in the next couple weeks. Thanks - CM ION WORKER Sabiha Duke RN - 02/13/2020 11:40 AM CST Advised and stated understanding. ION WORKER documented in this encounter Plan of Treatment Not on filedocumented as of this encounter Procedures Procedure Name Priority Date/Time Associated Diagnosis Comme nts ECG 12-LEAD Routine 02/13/2020 12:00 AM SUCTION WORKER Palpitations documented in this encounter Results ECG 12 lead (02/13/2020 12:00 AM SUCTION WORKER) Narrative This result has an attachment that is no t available. Ashely Peterson MD ECG ORDERABLES documented in this encounter Visit Diagnoses Diagnosis Palpitations documented in this encounter Care Teams Linter Operator Relationship Specialty Start Date End Date None, Pcp PCP - General Classroom Instructional Aide 12/01/19 02/25/20 [address] [place] [address] documented as of this encounter
--- OUTSIDE RECORDS SUMMARY | 2022-01-12 16:25 | XMS_ITS | Encounter Summary ---
:1975 Author Organization [facility] Address [address] [place] [address] Care Team Providers Name Role Phone Lee Hannon MD Primary Care Provider Reason for Visit Reason Comments Consult Encounter Details Date Type Department Care Team Description 02/26/[address] [facility] Women's Health Lee Hannon Essent ial hypertension (Primary Dx); [facility] S/P laparoscopic sleeve gastrectomy; Bladder Blower [address] Generalized anxiety disorder [address] [place], [place] [id number] [place] [phone] Social History Tobacco Use Types Packs/Day Years [...] at Date Recorded Female 04/13/2021 4:03 PM BALLAST CLEANING MACHINE OPERATOR documented as of this encounter Last Filed Vital Signs Vital Sign Reading Time Taken Comments Blood Pressure 152/109 02/26/2020 4:04 PM BALLAST CLEANING MACHINE OPERATOR Pulse 82 02/26/2020 4:04 PM BALLAST CLEANING MACHINE OPERATOR Temperature 36.4 ??C (97.6 ??F) 02/26/2020 4:04 PM BALLAST CLEANING MACHINE OPERATOR Respiratory Rate - - Oxygen Saturation - - Inhaled Oxygen Concentration - - Weight 119 kg (261 lb 14.5 oz) 02/26/2020 4:04 PM BALLAST CLEANING MACHINE OPERATOR Height 160 cm (5' 3) 02/26/2020 4:04 PM BALLAST CLEANING MACHINE OPERATOR Body Mass Index 46.39 02/26/2020 4:04 PM BALLAST CLEANING MACHINE OPERATOR documented in this encounter Patient Instructions Patient InstructionsLee Hannon MD - 02/26/2020 4:00 PM CST Schedule fasting labs in [place] Hold any biotin-containing supplements for 3 days prior to your blood draw. Bring your blood pressure cuff to [facility] [place] or [place] to check your blood pressure reading with both your cuff and [facility] machine to make sure readings are consistent. Then complete the 7-day monitoring form and send through Animated Speech to Dr. Hannon. Continue plan for cardiology appointment. AST CLEANING MACHINE OPERATOR documented in this encounter Progress Notes Lee [...] daily headaches. [place] point in 2017 or 2018, therapy was changed to verapamil short-acting 80mg once daily. I cannot find record of a visit when this was discussed. I also note prior therapy with hctz and lisinopril. These were held after developing lightheadedness and dizziness upon rapid weight loss after bariatric surgery. History of obesity, gastric bypass. Underwent sleeve gastrectomy 09/26/17 with Francisco MILLER in [facility]. Peak weight loss 77 lb, recalls that she was down to about 220lb at her lowest weight. Since COVID- pandemic, regained over 30lb. Panic disorder, anxiety, [...] panel; Future S/P laparoscopic sleeve gastrectomy - [facility] Branch Off w/Diff; Future - [...] contributing to elevated BP. Advised returning to [facility] branch clinic with BP cuff to ensure [...] prefers female, wishes to avoid driving in [place] due to anxiety. Lives in [place] and works in [employer] [place]. Discussed provider options in [facility], and [facility]. Lee Hannon MD AST CLEANING MACHINE OPERATOR documented in this encounter Plan of Treatment Not on filedocumented as of this encounter Results TSH (03/05/2020 1:25 PM BALLAST CLEANING MACHINE OPERATOR) athologist Signature TSH, Sensitive 0.83 0.46 - 03/05/2020 [facility] 4.68 mIU/L 6:59 PM BALLAST CLEANING MACHINE OPERATOR [facility] Comment: The results from [...] (Blood, 03/05/2020 1:25 PM 03/05/19 5:59 Venous) BALLAST CLEANING MACHINE OPERATOR PM BALLAST CLEANING MACHINE OPERATOR Lee Hannon MD LAB BLOOD ORDERABLES Performing Organization Address City/State/ZIP Code Phon e Number [facility] [address] [place] [address] (ABNORMAL) Lipid panel (03/05/2020 1:25 PM BALLAST CLEANING MACHINE OPERATOR) athologist Signature Cholesterol 239 (H) 0 - 199 03/05/2020 [facility] mg/dL 6:25 PM [facility] Comment: Recommended by National Cholesterol Education Program (ATP III) -------- Cholesterol Ranges -------- <200 ?Desirable 200-239 ? Borderline high >=240 ? High Triglycerides 75 0 - 149 mg/dL 03/05/2020 6:25 PM [facility] Comment: -------- TRIG Ranges -------- <150 ?Normal 150-199 ? Borderline high 200-499 ? High >=500 ? Very high HDL 51 40 - 250 mg/dL 03/05/2020 6:25 PM [facility] Comment: -------- HDL Ranges -------- <40 ?Low 40-59 ?Normal >=60 ? Optimal LDL Calculated 173 (H) 0 - 99 mg/dL 03/05/2020 6:25 PM [facility] Comment: -------- LDL Ranges -------- <100 ? Optimal 100-129 ?Near optimal/above op timal 130-159 ?Borderline high 160-189 ?High >=190 ?Very high Fasting? Yes 03/05/2020 1:33 PM [facility] Specimen Anatomical Collection Method Collection Time Receive d Time (Source) Location / / Volume Laterality Blood 03/05/2020 1:25 PM 5:59 BALLAST CLEANING MACHINE OPERATOR PM BALLAST CLEANING MACHINE OPERATOR Lee Hannon MD LAB BLOOD ORDERABLES Performing Organization Address City/State/ZIP Code Phon e Number [facility] [address] [place] [address] Prealbumin (03/05/2020 1:25 PM BALLAST CLEANING MACHINE OPERATOR) athologist [facility] Prealbumin 20.6 17.6 - 36.0 03/05/2020 [facility] mg/dL 6:42 PM BALLAST CLEANING MACHINE OPERATOR [facility] Specimen Anatomical Collection Method Collection Time Receive d Time (Source) Location / / Volume Laterality Blood (Blood, 03/05/2020 1:25 PM 03/05/19 5:59 Venous) BALLAST CLEANING MACHINE OPERATOR PM BALLAST CLEANING MACHINE OPERATOR Lee Hannon MD LAB BLOOD ORDERABLES Performing Organization Address City/[facility] Phon e Number [facility] [address] [place] [address] PTH, intact (03/05/2020 1:25 PM BALLAST CLEANING MACHINE OPERATOR) athologist [facility] Parathyroid 70.7 10.0 - 03/05/2020 [place] Hormone 87.0 pg/mL 6:52 PM BALLAST CLEANING MACHINE OPERATOR [facility] Comment: The results from [...] (Blood, 03/05/2020 1:25 PM 03/05/19 5:59 Venous) BALLAST CLEANING MACHINE OPERATOR PM BALLAST CLEANING MACHINE OPERATOR Lee Hannon MD LAB BLOOD ORDERABLES Performing Organization Address City/[facility]/ZIP [facility] Phon e Number [facility] [address] [place] [address] Folate (03/05/2020 1:25 PM BALLAST CLEANING MACHINE OPERATOR) athologist [facility] Folate 9.5 >=2.8 ng/mL 03/05/2020 [facility] 8:06 PM BALLAST CLEANING MACHINE OPERATOR [facility] Comment: The results from [...] (Blood, 03/05/2020 1:25 PM 03/05/19 5:59 Venous) BALLAST CLEANING MACHINE OPERATOR PM BALLAST CLEANING MACHINE OPERATOR Lee Hannon MD LAB BLOOD ORDERABLES Performing Organization Address City/[facility] e Number [facility] [address] [place], [place] [id number] Vitamin B12 (03/05/2020 1:25 PM BALLAST CLEANING MACHINE OPERATOR) athologist Signature Vitamin B-12 386 239 - 931 03/05/2020 [facility] pg/mL 8:06 PM BALLAST CLEANING MACHINE OPERATOR [facility] Comment: The results from [...] Volume Laterality Blood 03/05/2020 1:25 PM 5:59 BALLAST CLEANING MACHINE OPERATOR PM BALLAST CLEANING MACHINE OPERATOR Lee Hannon MD LAB BLOOD ORDERABLES Performing Organization Address City/[facility] e Number [facility] [address] [place] [address] Vitamin B1, whole blood (03/05/2020 1:25 PM BALLAST CLEANING MACHINE OPERATOR) athologist Signature Thiamin 117 70 - 180 03/09/2020 [facility] (Vitamin B1) nmol/L 10:22 AM BALLAST CLEANING MACHINE OPERATOR [facility] Comment: ADDITIONAL INFORMATIO N This test was developed and its performa nce characteristics determined by [facility] in a manner co nsistent with CLIA requirements. This test has not been leobardo ared or approved by the U.S. Food and Drug Administration. Test Performed by: [facility] [address] [address] Juice Tester: Anson Powell M.D. Ph. D.; CLIA# [id number] Specimen Anatomical Collection Method Collection Time Receive d Time (Source) Location / / Volume Laterality Blood (Blood, 03/05/2020 1:25 PM 03/05/19 Venous) BALLAST CLEANING MACHINE OPERATOR 10:46 PM BALLAST CLEANING MACHINE OPERATOR Lee Hannon MD LAB BLOOD ORDERABLES Performing Organization Address City/State/ZIP Code Phon e Number [facility] see result attachment for specific address Ferritin (03/05/2020 1:25 PM BALLAST CLEANING MACHINE OPERATOR) athologist Signature Ferritin 32 6 - 137 03/05/2020 [facility] ng/mL 7:29 PM BALLAST CLEANING MACHINE OPERATOR [facility] Comment: The results from [...] (Blood, 03/05/2020 1:25 PM 03/05/19 5:59 Venous) BALLAST CLEANING MACHINE OPERATOR PM BALLAST CLEANING MACHINE OPERATOR Lee Hannon MD LAB BLOOD ORDERABLES Performing Organization Address City/State/ZIP Code Phon e Number [facility] [address] [place] [address] (ABNORMAL) Vitamin D, Total (03/05/2020 1:25 PM BALLAST CLEANING MACHINE OPERATOR) Analysis Performed At Patho logist Time Signature Vitamin D, 28.0 (A) ng/mL 03/08/2020 [place] Total 8:11 PM BALLAST CLEANING MACHINE OPERATOR [facility] Comment: Deficient ?<20 ? ng/mL Insufficient ? 20-<30 ??ng/mL Sufficient ? 30-100 ??ng/mL Vitamin D2/D3 fractionation is recommend ed at the discretion of the clinician if Total Vitamin D is w ithin deficient or insufficient range. Specimen Anatomical Collection Method Collection Time Receive d Time (Source) Location / / Volume Laterality Blood 03/05/2020 1:25 PM 5:59 BALLAST CLEANING MACHINE OPERATOR PM BALLAST CLEANING MACHINE OPERATOR Lee Hannon MD LAB BLOOD ORDERABLES Performing Organization Address City/State/ZIP Code Phon e Number [facility] [address] [place] [address] Vitamin A (03/05/2020 1:25 PM BALLAST CLEANING MACHINE OPERATOR) P athologist Signature Free Retinol 40.6 32.5 - 03/09/2020 [facility] (Vit A) 78.0 10:50 AM BALLAST CLEANING MACHINE OPERATOR LABORATORIES mcg/dL Comment: ADDITIONAL INFORMATIO N This test was developed and its performa nce characteristics determined by [facility] in a manner co nsistent with CLIA requirements. This test has not been leobardo ared or approved by the U.S. Food and Drug Administration. Test Performed by: [facility] [address] [place] [address] Juice Tester: Anson Powell M.D. Ph. D.; CLIA# [id number] Specimen Anatomical Collection Method Collection Time Receive d Time (Source) Location / / Volume Laterality Blood (Blood, 03/05/2020 1:25 PM 03/05/19 21 Venous) BALLAST CLEANING MACHINE OPERATOR 10:46 PM BALLAST CLEANING MACHINE OPERATOR Lee Hannon MD LAB BLOOD ORDERABLES Performing Organization Address City/State/ZIP Code Phon e Number [facility] see result attachment for specific address Comprehensive metabolic panel (03/05/2020 1:25 PM BALLAST CLEANING MACHINE OPERATOR) P athologist Signature Total Protein 7.2 6.3 - 8.2 03/05/2020 [facility] g/dL 6:25 PM [facility] Albumin, Serum 4.2 3.5 - 5.0 03/05/2020 [facility] g/dL 6:25 PM [facility] Total Bilirubin <0.7 0.1 - 1.0 03/05/2020 [facility] mg/dL 6:25 PM [facility] AST 25 8 - 43 U/L 03/05/2020 [facility] 6:25 PM [facility] Alkaline 87 38 - 128 03/05/2020 [facility] Phosphatase U/L 6:25 PM [facility] ALT (SGPT) 24 0 - 34 U/L 03/05/2020 [facility] 6:25 PM [facility] Sodium 135 135 - 145 03/05/2020 [facility] mEq/L 6:25 PM [facility] Potassium 3.7 3.5 - 5.1 03/05/2020 [facility] mEq/L 6:25 PM [facility] Chloride 102 98 - 107 03/05/2020 [facility] mEq/L 6:25 PM [facility] CO2 25 22 - 29 03/05/2020 [facility] mmol/L 6:25 PM [facility] BUN 14 5 - 25 03/05/2020 [facility] mg/dL 6:25 PM [facility] Creatinine 0.6 0.4 - 1.2 03/05/2020 [facility] mg/dL 6:25 PM [facility] Glucose 89 70 - 100 03/05/2020 [facility] mg/dL 6:25 PM [facility] Calcium, Total,S 9.4 8.4 - 10.2 03/05/2020 [facility] mg/dL 6:25 PM BALLAST CLEANING MACHINE OPERATOR [facility] Specimen Anatomical Collection Method Collection Time Receive d Time (Source) Location / / Volume Laterality Blood (Blood, 03/05/2020 1:25 PM 03/05/19 21 5:59 Venous) BALLAST CLEANING MACHINE OPERATOR PM BALLAST CLEANING MACHINE OPERATOR Lee Hannon MD LAB BLOOD ORDERABLES Performing Organization Address City/State/ZIP Code Phon e Number [facility] [address] [place] [address] CBC Branch Off w/Diff (03/05/2020 1:25 PM BALLAST CLEANING MACHINE OPERATOR) P athologist Signature WBC 6.6 3.5 - 10.5 03/05/2020 [facility] K/uL 1:34 PM BALLAST CLEANING MACHINE OPERATOR FALLS RBC 4.24 3.90 - 03/05/2020 [facility] 5.00 M/uL 1:34 PM BALLAST CLEANING MACHINE OPERATOR FALLS Hemoglobin 12.7 12.0 - 03/05/2020 [facility] 15.5 g/dL 1:34 PM BALLAST CLEANING MACHINE OPERATOR FALLS Hematocrit 38.8 35.0 - 03/05/2020 [facility] 44.0 % 1:34 PM BALLAST CLEANING MACHINE OPERATOR FALLS Platelets 364 150 - 450 03/05/2020 [facility] K/uL 1:34 PM BALLAST CLEANING MACHINE OPERATOR FALLS MCV 91.5 81.6 - 03/05/2020 [facility] 98.3 fL 1:34 PM BALLAST CLEANING MACHINE OPERATOR FALLS MCH 30.0 26.0 - 03/05/2020 [facility] 32.0 pg 1:34 PM BALLAST CLEANING MACHINE OPERATOR FALLS MCHC 32.7 32.0 - 03/05/2020 [facility] 36.0 g/dL 1:34 PM BALLAST CLEANING MACHINE OPERATOR FALLS RDW 13.7 11.9 - 03/05/2020 [facility] 15.5 % 1:34 PM BALLAST CLEANING MACHINE OPERATOR FALLS Lymphocytes % 27.8 % 03/05/2020 [facility] 1:34 PM BALLAST CLEANING MACHINE OPERATOR FALLS Mid-size Cells 7.8 % 03/05/2020 [facility] 1:34 PM BALLAST CLEANING MACHINE OPERATOR FALLS Granulocytes/Percy 64.4 % 03/05/2020 [facility] trophils 1:34 PM BALLAST CLEANING MACHINE OPERATOR FALLS Lymphocytes 1.8 0.9 - 2.9 03/05/2020 [facility] Absolute K/uL 1:34 PM BALLAST CLEANING MACHINE OPERATOR FALLS MIDS Absolute 0.5 0.4 - 1.5 03/05/2020 [facility] [place] K/uL 1:34 PM BALLAST CLEANING MACHINE OPERATOR FALLS Granulocytes/Percy 4.3 1.7 - 7.0 03/05/2020 [facility] [place] trophils K/uL 1:34 PM BALLAST CLEANING MACHINE OPERATOR FALLS Absolute Specimen Anatomical Collection Method Collection Time Receive d Time (Source) Location / / Volume Laterality Blood 03/05/2020 1:25 PM 1:33 BALLAST CLEANING MACHINE OPERATOR PM BALLAST CLEANING MACHINE OPERATOR Lee Hannon MD LAB BLOOD ORDERABLES Performing Organization Address City/State/ZIP Code Phon e Number [facility] [address] [place] [address] documented in this encounter Visit Diagnoses Diagnosis Essential hypertension - Primary Unspecified essential hypertension S/P laparoscopic sleeve gastrectomy Generalized anxiety disorder documented in this encounter Care Teams Consumer Loan Manager Relationship Specialty Start Date End Date Lee Hannon MD PCP - General Family Medicine 02/26/20 03/20/[address] [place] [phone] documented as of this encounter
--- OUTSIDE RECORDS SUMMARY | 2022-01-12 16:25 | XMS_ITS | Encounter Summary ---
:1975 Author Organization [facility] Address [address] [place] [address] Care Team Providers Name Role Phone None, [...] at Date Recorded Female 04/13/2021 4:03 PM PELLET MACHINE OPERATOR documented as of this encounter Plan of Treatment Not on filedocumented as of this encounter Visit Diagnoses Not on filedocumented in this encounter Care Teams Esthetician/Owner Relationship Specialty Start Date End Date None, Pcp PCP - General Biomedical Technician 12/01/19 02/25/20 [address] [place] [phone] documented as of this encounter
--- OUTSIDE RECORDS SUMMARY | 2022-01-12 16:25 | XMS_ITS | Encounter Summary ---
:1975 Author Organization [facility] Address [address] [place] [address] Care Team Providers Name Role Phone None, [...] at Date Recorded Female 04/13/2021 4:03 PM INTERNET MARKETING DIRECTOR documented as of this encounter Plan of Treatment Not on filedocumented as of this encounter Visit Diagnoses Not on filedocumented in this encounter Care Teams Boat Outfitter Relationship Specialty Start Date End Date None, Pcp PCP - General Equipment Or Machinery Cleaner 12/01/19 02/25/[address] [place] [phone] documented as of this encounter
--- OUTSIDE RECORDS SUMMARY | 2022-01-12 16:25 | XMS_ITS | Encounter Summary ---
:1975 Author Organization [facility] Address [address] [place] [address] Care Team Providers Name Role Phone Katty Rojas APRN, CNP Primary Care Provider Encounter Details Date Type Department Care Team Description 05/23/2018 Orders Only [place], Depression, [address] [place] unspecified [place] [address] depression type [address] [place] [address] Social History Tobacco Use Types Packs/Day Years [...] at Date Recorded Female 04/13/2021 4:03 PM HOSTING ENGINEER documented as of this encounter Plan of Treatment Not on filedocumented as of this encounter Visit Diagnoses Diagnosis Depression, unspecified depression type documented in this encounter Care Teams Forensic Pathologist Relationship Specialty Start Date End Date Katty Rojas APRN, HERBERT PCP - General 09/11/17 10/13/19 [address] [place] [address] documented as of this encounter
--- OUTSIDE RECORDS SUMMARY | 2022-01-12 16:25 | XMS_ITS | Encounter Summary ---
:1975 Author Organization [facility] Address [address] [place] [address] Care Team Providers Name Role Phone Katty Rojas APRN, CNP Primary Care Provider [phone] Encounter Details Date Type Department Care Team Description 05/15/2018 Orders Only [place], Depression, [address] [place] [address] depression type [address] [facility] [place] [address] Social History Tobacco Use Types Packs/Day Years [...] at Date Recorded Female 04/13/2021 4:03 PM COMMANDING OFFICER GARAGE documented as of this encounter Plan of Treatment Not on filedocumented as of this encounter Visit Diagnoses Diagnosis Depression, unspecified depression type documented in this encounter Care Teams Public Utilities Sales Representative Relationship Specialty Start Date End Date Katty Rojas APRN, HERBERT PCP - General 09/11/17 10/13/19 [address] [place] [address] documented as of this encounter
--- OUTSIDE RECORDS SUMMARY | 2022-01-12 16:25 | XMS_ITS | Encounter Summary ---
:1975 Author Organization [facility] Address [address] [place] [address] Care Team Providers Name Role Phone Katty Rojas APRN, CNP Primary Care Provider Encounter Details Date Type Department Care Team Description 02/19/2019 Orders Only [place] Katty Rojas Hyperlipidemia, [address] LUCAS Fuller CNP unspecified [place], [place] [address] hyperlipidemia type [address] [place] [address] (Primary Dx) [phone] Social History Tobacco Use Types Packs/Day Years [...] Date Recorded Female 04/13/2021 4:03 PM PASSENGER SERVICE MANAGER documented as of this encounter Plan of Treatment Not on filedocumented as of this encounter Visit Diagnoses Diagnosis Hyperlipidemia, unspecified hyperlipidem ia type - Primary documented in this encounter Care Teams Conciliator Relationship Specialty Start Date End Date Katty Rojas APRN, CNP PCP - General 09/11/17 10/13/[address] [place] [address] documented as of this encounter
--- OUTSIDE RECORDS SUMMARY | 2022-01-12 16:25 | XMS_ITS | Encounter Summary ---
:[address] [facility] Address [address] [place] [address] Care Team Providers Name Role Phone Katty Rojas BRAKE OPERATOR HELPER, WEBSITE OPTIMIZATION STRATEGIST Primary Care Provider [phone] Reason for Visit Reason Onset Date Comments Hypertension Registry 01/20/2019 Encounter Details Date Type Department Care Team Description 01/20/2019 Telephone [place] Katty Rojas, Hypertension Registry [address] BRAKE OPERATOR HELPER, WEBSITE OPTIMIZATION STRATEGIST [place], [place] [address] [address] [facility] [address] [phone] [place], [place] [address] Social History Tobacco Use [...] at Date Recorded Female 04/13/2021 4:03 PM SOFTWARE CLIENT ARCHITECT documented as of this encounter Miscellaneous Notes Telephone Encounter - Marleen Bond - 02/03/2019 3:17 PM CST Patient is scheduled for lab work and appointment. WARE CLIENT ARCHITECT Telephone Encounter - Celi Monson LPN - 01/20/2019 3:36 PM CST The patient is due for a BMP non fasting lab (which is ordered) and a visit with Nando three days later to review Hypertension. WARE CLIENT ARCHITECT documented in this encounter Plan of Treatment Not on filedocumented as of this encounter Visit Diagnoses Not on filedocumented in this encounter Care Teams Student Services Advisor Relationship Specialty Start Date End Date Katty Rojas APRN, WEBSITE OPTIMIZATION STRATEGIST PCP - General 09/11/17 10/13/19 [address] [facility] [place] [address] documented as of this encounter
--- OUTSIDE RECORDS SUMMARY | 2022-01-12 16:26 | XMS_ITS | Encounter Summary ---
:1975 Author Organization [facility] Address [address] [place] [address] Care Team Providers Name Role Phone Katty Rojas APRN, BREASTER Primary Care Provider [phone] Encounter Details Date Type Department Care Team Description 04/11/2018 Lab [place] S/P laparoscopic sleeve krista rectomy; [address] Morbid obesity (HCC) [place], [place] [address] Social History Tobacco Use [...] at Date Recorded Female 04/13/2021 4:03 PM MEDICAL DOSIMETRIST documented as of this encounter Plan of Treatment Not on filedocumented as of this encounter Procedures Procedure Name Priority Date/Time Associated Diagnosis Comme nts GLOMERULAR FILTRATION Routine 04/11/2018 3:36 S/P laparoscopic Results for this RATE PM MEDICAL DOSIMETRIST sleeve gastrecto my procedure are in Morbid obesity (HCC) the res ults section. 25-HYDROXYVITAMIN D2 Routine 04/11/2018 3:36 S/P laparoscopic Results for this AND D3, S PM MEDICAL DOSIMETRIST sleeve gastrecto my procedure are in Morbid obesity (HCC) the res ults section. VITAMIN B1, WHOLE Routine 04/11/2018 3:36 S/P laparoscopic Res ults for this BLOOD PM MEDICAL DOSIMETRIST sleeve gastrecto my procedure are in Morbid obesity (HCC) the res ults section. VITAMIN A Routine 04/11/2018 3:36 S/P laparoscopic Results for this PM MEDICAL DOSIMETRIST sleeve gastrecto my procedure are in Morbid obesity (HCC) the res ults section. INSULIN, SERUM Routine 04/11/2018 3:36 S/P laparoscopic Result s for this PM MEDICAL DOSIMETRIST sleeve gastrecto my procedure are in Morbid obesity (HCC) the res ults section. CBC Routine 04/11/2018 3:36 S/P laparoscopic Results for this PM MEDICAL DOSIMETRIST sleeve gastrecto my procedure are in Morbid obesity (HCC) the res ults section. VITAMIN B6 Routine 04/11/2018 3:36 S/P laparoscopic Results for this PM MEDICAL DOSIMETRIST sleeve gastrecto my procedure are in Morbid obesity (HCC) the res ults section. IRON Routine 04/11/2018 3:36 S/P laparoscopic Results for this PM MEDICAL DOSIMETRIST sleeve gastrecto my procedure are in Morbid obesity (HCC) the res ults section. FOLATE Routine 04/11/2018 3:36 S/P laparoscopic Results for this PM MEDICAL DOSIMETRIST sleeve gastrecto my procedure are in Morbid obesity (HCC) the res ults section. FERRITIN Routine 04/11/2018 3:36 S/P laparoscopic Results for this PM MEDICAL DOSIMETRIST sleeve gastrecto my procedure are in Morbid obesity (HCC) the res ults section. VITAMIN B12 Routine 04/11/2018 3:36 S/P laparoscopic Results for this PM MEDICAL DOSIMETRIST sleeve gastrecto my procedure are in Morbid obesity (HCC) the res ults section. LIPID PANEL Routine 04/11/2018 3:36 S/P laparoscopic Results for this PM MEDICAL DOSIMETRIST sleeve gastrecto my procedure are in Morbid obesity (HCC) the res ults section. COMPREHENSIVE Routine 04/11/2018 3:36 S/P laparoscopic Results for this METABOLIC PANEL PM MEDICAL DOSIMETRIST sleeve gastrecto my procedure are in Morbid obesity (HCC) the res ults section. documented in this encounter Results Glomerular filtration rate (GFR) (04/11/2018 3:36 PM MEDICAL DOSIMETRIST) athologist Signature GFR >60 04/11/2018 [facility] 7:24 PM [facility]ENTER LAB[facility] >60 04/11/2018 [facility] Brune[place] GFR 7:24 PM [facility] Comment: GFR calculated from serum creatinine v alue Chronic Kidney Disease less than 60 mL/m in/1.73 m2 Kidney Failure less than 15 mL/min/1.73 m2 Note: effective 06/20/06 IDMS-Traceable MDRD Study Equation used. Specimen Anatomical Collection Method Collection Time Receive d Time (Source) Location / / Volume Laterality 04/11/2018 3:36 PM 9 3:36 MEDICAL DOSIMETRIST PM MEDICAL DOSIMETRIST Outside Referring Lab Provider LAB BLOOD ORDERABLES Performing Organization Address City/State/ZIP Code Phon e Number [facility] [address] [place] [address] Insulin, serum (04/11/2018 3:36 PM MEDICAL DOSIMETRIST) athologist Signature Insulin 4.9 2.6 - 24.9 04/12/2018 [facility] mcIU/mL 2:55 PM MEDICAL DOSIMETRIST LABORATORIES Comment: Test Performed by: [facility] [address] [place], [place] [address] Specimen Anatomical Collection Method Collection Time Receive d Time (Source) Location / / Volume Laterality Blood (Blood, 04/11/2018 3:36 PM 04/12/19 19 Venous) MEDICAL DOSIMETRIST 10:13 PM MEDICAL DOSIMETRIST Outside Referring Lab Provider LAB BLOOD ORDERABLES Performing Organization Address City/[facility]/ZIP Code Phon e Number [facility] see result attachment for specific address Vitamin B12 (04/11/2018 3:36 PM MEDICAL DOSIMETRIST) athologist Signature Vitamin B-12 222 781 - 090 04/11/2018 [facility] pg/mL 8:42 PM [facility] CENTER LAB[facility]ORY Comment: The results from this [...] 04/11/2018 3:36 PM 04/12/19 19 6:52 Venous) MEDICAL DOSIMETRIST PM MEDICAL DOSIMETRIST Outside Referring Lab Provider LAB BLOOD ORDERABLES Performing Organization Address City/[facility]/ZIP Code Phon e Number [facility] [address] [place] [phone] Vitamin B6 (04/11/2018 3:36 PM MEDICAL DOSIMETRIST) athologist [facility] Pyridoxal 6 5 - 50 04/16/2018 [facility] 5-Phosphate mcg/L 1:34 AM CDT LABORATORIES Comment: ADDITIONAL INFORMATIO N This test was developed and its performa nce characteristics determined by [facility] in a manner co nsistent with CLIA requirements. This test has not been leobardo ared or approved by the U.S. Food and Drug Administration. Test Performed by: [facility] - [place] [id number] Specimen Anatomical Collection Method Collection Time Receive d Time (Source) Location / / Volume Laterality Blood (Blood, 04/11/2018 3:36 PM 04/12/19 19 9:13 Venous) MEDICAL DOSIMETRIST PM MEDICAL DOSIMETRIST Outside Referring Lab Provider LAB BLOOD ORDERABLES Performing Organization Address City/State/[facility] Code Phon e Number [facility] see result attachment for specific address Vitamin A (04/11/2018 3:36 PM MEDICAL DOSIMETRIST) athologist [facility] Free Retinol 32.9 32.5 - 04/16/2018 [facility] (Vit A) 78.0 2:30 AM CDT LABORATORIES mcg/dL Comment: ADDITIONAL INFORMATIO N This test was developed and its performa nce characteristics determined by [facility] in a manner co nsistent with CLIA requirements. This test has not been leobardo ared or approved by the U.S. Food and Drug Administration. Test Performed by: [facility] - [address] [address] Specimen Anatomical Collection Method Collection Time Receive d Time (Source) Location / / Volume Laterality Blood (Blood, 04/11/2018 3:36 PM 04/12/19 19 9:13 Venous) MEDICAL DOSIMETRIST PM MEDICAL DOSIMETRIST Outside Referring Lab Provider LAB BLOOD ORDERABLES Performing Organization Address City/State/ZIP Code Phon e Number [facility] see result attachment for specific address Vitamin B1, whole blood (04/11/2018 3:36 PM MEDICAL DOSIMETRIST) athologist [facility] Thiamin TNP 04/12/2018 [facility] (Vitamin B1) 3:40 PM [facility]ICAL DOSIMETRIST LABORATORIES Comment: Thiamin (Vitamin B1), WB was cancelled o n 04/12/2018 at 15:38; Specimen received refrigerated - must be sent frozen on dry ice. Test Performed by: [facility] [address] [place], [place] [address] Specimen Anatomical Collection Method Collection Time Receive d Time (Source) Location / / Volume Laterality Blood (Blood, 04/11/2018 3:36 PM 04/12/19 19 Venous) MEDICAL DOSIMETRIST 10:13 PM MEDICAL DOSIMETRIST Outside Referring Lab Provider LAB BLOOD ORDERABLES Performing Organization Address City/[facility]/ZIP Code Phon e Number [facility] see result attachment for specific address Iron (04/11/2018 3:36 PM MEDICAL DOSIMETRIST) athologist [facility] Iron (FE) 52 37 - 170 04/11/2018 [facility] mcg/dL 7:27 PM [facility]ST CENTER LABORATORY Specimen Anatomical Collection Method Collection Time Receive d Time (Source) Location / / Volume Laterality Blood (Blood, 04/11/2018 3:36 PM 04/12/19 19 6:52 Venous) MEDICAL DOSIMETRIST PM MEDICAL DOSIMETRIST Outside Referring Lab Provider LAB BLOOD ORDERABLES Performing Organization Address City/[facility]/ZIP Code Phon e Number [facility] [address] [place] [phone] Folate (04/11/2018 3:36 PM MEDICAL DOSIMETRIST) athologist [facility] Folate >20.0 >=2.8 ng/mL 04/11/2018 [facility] 8:42 PM [facility]ST CENTER LAB[facility]ATORY Comment: The results from this [...] 04/11/2018 3:36 PM 04/12/19 19 6:52 Venous) MEDICAL DOSIMETRIST PM MEDICAL DOSIMETRIST Outside Referring Lab Provider LAB BLOOD ORDERABLES Performing Organization Address [facility] Phon e Number [facility] [address] [place] [address] Ferritin (04/11/2018 3:36 PM MEDICAL DOSIMETRIST) athologist Signature Ferritin 47 6 - 137 04/11/2018 [facility] ng/mL 8:41 PM MEDICAL DOSIMETRIST CENTER LABORATORY Comment: The results from this [...] 04/11/2018 3:36 PM 04/12/19 19 6:52 Venous) MEDICAL DOSIMETRIST PM MEDICAL DOSIMETRIST Outside Referring Lab Provider LAB BLOOD ORDERABLES Performing Organization Address City/[facility] Phon e Number [facility] [address] [place] [address] 25-Hydroxyvitamin D2 and D3, S (VITAD) (04/11/2018 3:36 PM MEDICAL DOSIMETRIST) athologist Signature 25-Hydroxy D2 <4.0 ng/mL 04/16/2018 [facility] 2:58 PM CDT LABORATORIES 25-Hydroxy D3 58 ng/mL 04/16/2018 [facility] 2:58 PM CDT LABORATORIES Vit D, 58 ng/mL 04/16/2018 [facility] 25-Hydroxy 2:58 PM CDT LABORATORIES Comment: Interpretation: 51-80 ng/mL (increased r isk of hypercalciuria) REFERENCE VALUE------ 25-HYDROXY D TOTAL (D2+D3) Optimum level s in the healthy population are 20-50, patients with bone disease may benefit from higher levels within this r jesse. ADDITIONAL INFORMATIO N This test was developed and its performa nce characteristics determined by [facility] in a manner co nsistent with CLIA requirements. This test has not been leobardo ared or approved by the U.S. Food and Drug Administration. Test Performed by: [facility] [address] [place] [id number] Specimen Anatomical Collection Method Collection Time Receive d Time (Source) Location / / Volume Laterality Blood (Blood, 04/11/2018 3:36 PM 04/12/19 19 9:13 Venous) MEDICAL DOSIMETRIST PM MEDICAL DOSIMETRIST Outside Referring Lab Provider LAB BLOOD ORDERABLES Performing Organization Address City/State/ZIP Code Phon e Number [facility] see result attachment for specific address (ABNORMAL) Lipid panel (04/11/2018 3:36 PM MEDICAL DOSIMETRIST) P athologist Signature Cholesterol 199 0 - 199 04/11/2018 [facility] mg/dL 7:24 PM [facility] Comment: Recommended by National Cholesterol Education Program (ATP III) -------- Cholesterol Ranges -------- <200 ? Desirable 200-239 ? Borderline high >=240 ? High Triglycerides 75 0 - 149 mg/dL 04/11/2018 7:24 PM [facility] Comment: -------- TRIG Ranges -------- <150 ?Normal 150-199 ? Borderline high 200-499 ? High >=500 ? Very high HDL 40 40 - 60 mg/dL 04/11/2018 7:24 PM [facility] Comment: -------- HDL Ranges -------- <40 ?Low 40-59 ?Normal >=60 ? Optimal LDL Calculated 144 (A) 0 - 99 mg/dL 04/11/2018 7:24 PM [facility] Comment: -------- LDL Ranges -------- <100 ? Optimal 100-129 ?Near optimal/above op timal 130-159 ?Borderline high 160-189 ?High >=190 ?Very high Specimen Anatomical Collection Method Collection Time Receive d Time (Source) Location / / Volume Laterality Blood (Blood, 04/11/2018 3:36 PM 04/12/19 19 6:52 Venous) MEDICAL DOSIMETRIST PM MEDICAL DOSIMETRIST Outside Referring Lab Provider LAB BLOOD ORDERABLES Performing Organization Address City/State/ZIP Code Phon e Number [facility] [address] [place] [address] Comprehensive metabolic panel (04/11/2018 3:36 PM MEDICAL DOSIMETRIST) P athologist Signature Total Protein 7.4 6.3 - 8.2 04/11/2018 [facility] g/dL 7:24 PM [facility] Albumin, Serum 4.4 3.5 - 5.0 04/11/2018 [facility] g/dL 7:24 PM [facility] Total Bilirubin <0.7 0.1 - 1.0 04/11/2018 [facility] mg/dL 7:24 PM [facility] AST 21 8 - 43 U/L 04/11/2018 [facility] 7:24 PM [facility] Alkaline 89 38 - 128 04/11/2018 [facility] Phosphatase U/L 7:24 PM [facility] ALT (SGPT) 30 0 - 34 U/L 04/11/2018 [facility] 7:24 PM [facility] Comment: NOTE: Normal range change effective 01/06 Sodium 139 135 - 145 mEq/L 04/11/2018 7:24 PM [facility] Potassium 3.8 3.5 - 5.1 mEq/L 04/11/2018 7:24 PM [facility] Chloride 103 98 - 107 mEq/L 04/11/2018 7:24 PM [facility] CO2 27 22 - 29 mmol/L 04/11/2018 7:24 PM [facility] BUN 15 5 - 25 mg/dL 04/11/2018 7:24 PM [facility] Creatinine 0.7 0.4 - 1.2 mg/dL 04/11/2018 7:24 PM [facility] Glucose 85 70 - 100 mg/dL 04/11/2018 7:24 PM [facility] Calcium, Total,S 9.4 8.4 - 10.2 mg/dL 04/11/2018 7:24 PM [facility] Fasting? Yes 04/11/2018 3:43 PM [facility] Specimen Anatomical Collection Method Collection Time Receive d Time (Source) Location / / Volume Laterality Blood (Blood, 04/11/2018 3:36 PM 04/12/19 19 6:52 Venous) MEDICAL DOSIMETRIST PM MEDICAL DOSIMETRIST Outside Referring Lab Provider LAB BLOOD ORDERABLES Performing Organization Address City/State/ZIP Code Phon e Number [facility] [address] [place], [place] [id number] CBC ([employer]) (04/11/2018 3:36 PM MEDICAL DOSIMETRIST) P athologist Signature WBC 6.4 3.5 - 10.5 04/11/2018 [facility] [facility] [place] K/uL 3:59 PM MEDICAL DOSIMETRIST [place] RBC 4.24 3.90 - 5.00 04/11/2018 [facility] [place] M/uL 3:59 PM [place]IMET[place]ST [place] Hemoglobin 12.8 12.0 - 15.5 04/11/2018 [facility] g/dL 3:59 PM [place]ST [place] Hematocrit 39.5 35.0 - 44.0 04/11/2018 [facility] [place] % 3:59 PM MEDICAL DOSIMET[place]ST [place] Platelets 383 150 - 450 04/11/2018 [facility] [place] K/uL 3:59 PM [place] MCV 93.2 81.6 - 98.3 04/11/2018 [facility] [place] fL 3:59 PM [place]IM[place] MCH 30.2 26.0 - 32.0 04/11/2018 [facility] [place] pg 3:59 PM [place] [place]IM[facility]ST [place] MCHC 32.4 32.0 - 36.0 04/11/2018 [facility] [place] g/dL 3:59 PM [place] RDW 13.4 11.9 - 15.5 04/11/2018 [facility] [place] % 3:59 PM [place] [place] Specimen Anatomical Collection Method Collection Time Receive d Time (Source) Location / / Volume Laterality Blood (Blood, 04/11/2018 3:36 PM 04/12/19 19 3:43 Venous) MEDICAL DOSIMETRIST PM MEDICAL DOSIMETRIST Outside Referring Lab Provider LAB BLOOD ORDERABLES Performing Organization Address City/State/ZIP Code Phon e Number [facility] CARLITOS TERESA [address] [place] [address] documented in this encounter Visit Diagnoses Diagnosis S/P laparoscopic sleeve gastrectomy Morbid obesity (HCC) Morbid obesity documented in this encounter Care Teams Denture Contour Wire Specialist Relationship Specialty Start Date End Date Katty Rojas APRN, BREASTER PCP - General 09/11/17 10/13/19 [address] [facility] [place] [address] documented as of this encounter
--- OUTSIDE RECORDS SUMMARY | 2022-01-12 16:26 | XMS_ITS | Encounter Summary ---
:1975 Author Organization [facility] Address [address] [place] [address] Care Team Providers Name Role Phone Katty Rojas APRN, CNP Primary Care Provider [phone] Encounter Details Date Type Department Care Team Description 03/29/2018 Orders Only Katty Chao, Depression, [address] [place] unspecified [place] [address] depression type [address] [place] [address] (Primary Dx) [phone] Social History Tobacco Use Types Packs/Day Years [...] at Date Recorded Female 04/13/2021 4:03 PM DIRECTOR RADIO documented as of this encounter Progress Notes Katty Rojas APRN, CNP - 03/29/2018 12:54 PM CST Okay let me just pull this up here then CTOR RADIO documented in this encounter Plan of Treatment Not on filedocumented as of this encounter Visit Diagnoses Diagnosis Depression, unspecified depression type - Primary documented in this encounter Care Teams Line Closer Relationship Specialty Start Date End Date Katty Rojas APRN, CNP PCP - General 09/11/17 10/13/[address] [place] [address] documented as of this encounter
--- OUTSIDE RECORDS SUMMARY | 2022-01-12 16:26 | XMS_ITS | Encounter Summary ---
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
--- OUTSIDE RECORDS SUMMARY | 2022-01-12 16:26 | XMS_ITS | Encounter Summary ---
:1975 Author Organization [facility] Address [address] [place] [address] Care Team Providers Name Role Phone Katty Rojas APRN, ALTERNATIVE ENERGY ENGINEER Primary Care Provider [phone] Reason for Visit Reason Comments Blood Pressure Check Encounter Details Date Type Department Care Team Description 12/20/2017 Clinical Support [facility] [address] [place], [place] [address] Social History Tobacco Use [...] at Date Recorded Female 04/13/2021 4:[address] CONDUCTOR documented as of this encounter Last Filed Vital Signs Vital Sign Reading Time Taken Comments Blood Pressure 133/81 12/20/2017 4:26 PM STREETCAR CONDUCTOR Pulse 84 12/20/2017 4:26 PM STREETCAR CONDUCTOR Temperature - - Respiratory Rate - - Oxygen Saturation - - Inhaled Oxygen Concentration - - Weight 111 kg (244 lb 0.8 oz) 12/20/2017 4:26 PM STREETCAR CONDUCTOR Height - - Body Mass Index 43.24 10/10/2017 10:17 AM CDT documented in this encounter Progress Notes Celi Monson LPN - 12/20/2017 3:40 PM CST BP: 133/81 P: 84 K.7kg ETCAR CONDUCTOR documented in this encounter Plan of Treatment Not on filedocumented as of this encounter Visit Diagnoses Not on filedocumented in this encounter Care Teams Director Of Psychiatry Relationship Specialty Start Date End Date Katty Rojas APRN, ALTERNATIVE ENERGY ENGINEER PCP - General 09/11/17 10/13/19 [address] [facility] [place] [address] documented as of this encounter
[2022-01-12 22:07] LABS: Chloride* 106 mmol/L (96-114); Potassium* 3.8 mmol/L (3.6-5.1); Sodium* 140 mmol/L (135-149)
[2022-01-12 22:10] LABS: Blood Urea Nitrogen* 16 mg/dL (5-24); Carbon Dioxide* 24 mmol/L (20-32); Creatinine* 0.6 mg/dL (0.5-1.5); Estimated Glomerular Filt Rate 112 ml/min
[2022-01-12 22:11] LABS: Calcium* 9.8 mg/dL (8.4-10.6); Glucose* 86 mg/dL (60-115)
== END 2022-01-12 16:23 | disposition home or self-care (01) ==
LOC: KYNREF 16:23
PROVIDERS: PCP Nurse Practitioner Family; Visit Provider Nurse Practitioner Family
DX: Z09 Encounter for follow-up examination after completed treatment for conditions other than malignant neoplasm (principal)
CPT/HCPCS: 80048

== ENCOUNTER 2022-01-19 08:28 | Outpatient (CLI) | payer BC, SELFPAY ==
[2022-01-19 15:07] LABS: SARS PCR* Negative SARS-CoV-2 (Negative)
== END 2022-01-19 08:29 | disposition home or self-care (01) ==
LOC: KYNREF 08:28
PROVIDERS: PCP Nurse Practitioner Family; Visit Provider Obstetrics & Gynecology
DX: Z20.822 Contact with and (suspected) exposure to COVID-19 (principal)
CPT/HCPCS: 87635

== ENCOUNTER 2022-01-20 06:44 | Day surgery (SDC) | payer BC, SELFPAY ==
[2022-01-20] VITALS (28 sets, daily range): BP systolic 96–146; BP diastolic 55–106; PULSE 71–110; RESP 8–18; TEMP 36.4–37.7; O2SAT 93–100; BMI 46.4
[2022-01-20] MEDS: LACTATED RINGERS 1000 ML 1,000 ML 100 ML IV ×2 (07:30→12:07)
[2022-01-20] MEDS: SODIUM CHLORIDE 0.9 % (FLUSH) 10 ML SYRINGE IVF ×2 (07:32→20:57)
[2022-01-20] MEDS: ETHYL CHLORIDE 1 APPLICATION 1 APPLIC TOPICAL (07:32)
[2022-01-20 07:35] LABS: Hemoglobin* 14.3 gm/dL (12.0-16.0)
[2022-01-20 08:08] LABS: HCG Qualitative Serum* Negative (Negative)
[2022-01-20] MEDS: VASOPRESSIN 20 UNIT/ML INJ INJECTION (12:02)
[2022-01-20] MEDS: ESTROGENS, CONJUGATED VAGINAL 0.625 MG/G CREAM 1 APPLIC TOPICAL (13:07)
--- NOTE | 2022-01-20 13:32 | W.ANESCHARGE ---
Anesthesia Charges Start Date/Time Anesthesia Start Date: 01/20/22 Anesthesia Start Time: 09:36 Stop Date/Time Anesthesia Stop Date: 01/20/22 Anesthesia Stop Time: 13:25 Summary Emergency: No
--- NOTE | 2022-01-20 14:54 | PC.NURSE ---
Pt. c/o feeling like she has a very full bladder and it is uncomfortable. Catheter is draining. Dr. De Souza updated via phone about pt. discomfort. Per MD is it probably her vag. packing, she has a HGB ordered at 1700 after that results, the MD may remove the packing early.
--- NOTE | 2022-01-20 15:28 | P.GYNPRC_ITS ---
Procedure Note Date Seen: 01/20/22 Procedure Details: Preop diagnosis: Abnormal uterine bleeding, pelvic organ prolapse Postop diagnosis: Abnormal uterine bleeding, pelvic organ prolapse Name of procedure: Total vaginal hysterectomy, posterior colporrhaphy, perineorrhaphy, cystoscopy Surgeon: Thomas De Souza MD Outdoor Fitness Trainer: Fuad Gee MD Complications: None EBL: 50 Drains: Valencia catheter Findings: Normal external genitalia, posterior vaginal wall prolapse grade 3, uterine prolapse grade 1, anterior vaginal wall prolapse grade 1. Cervix, multiparous, no gross lesions, IUD strings visualized. Patient on menses with moderate amount of blood in the vagina. Uterus with what felt like adhesion tissue at the left lower uterine segment. Right ovary visualized grossly normal. No fallopian tube tissue identified at the time of surgery, left ovary was not visualized. Cystoscopy: Normal bladder mucosa w/o evidence of suture, gas bubbles seen, bilateral ureteral jets seen at the end of procedure. The patient was seen at the preop area. Risks, benefits, indication, and alternatives of the procedure were reviewed with patient. Informed consent was reviewed and signed. The patient was taken to the OR with IV fluid running and pneumatic compression stockings were applied to the lower extremities. General anesthesia was obtained without difficulty. The patient was placed in the dorsal lithotomy position with Jatin type stirrups. Buttock was positioned slightly over the edge the table. The patient was prepped and draped in normal sterile fashion. Examination under anesthesia revealed the findings as above. Vaelncia catheter was inserted and the bladder was emptied. A weighted speculum was placed into the vagina. The anterior and posterior lip of the cervix grasped with thyroid Emiliano clamps. With outward traction applied on the tenaculum diluted Vasopressin was injected circumferentially into the cervicovaginal junction for hydrodissection purposes. Afterwards a circumferential incision was made with the scalpel at the cervical vaginal junction. Incision was carried down to the para cervical fascia, allowing the cervix to separate from the vagina mucosa. Minimal bleeding encountered. Attention was placed to the posterior vagina, where blunt dissection also utilized until identification of the posterior peritoneum, this was grasped with pickups and entered sharply with [place] scissors with the tip pointing to the uterus. Clear peritoneal fluid was noted. The weighted speculum was removed in a long Yajaira speculum was inserted into the cul-de-sac. Separation of the anterior vaginal mucosa from uterus performed bluntly with moist gauze and performed until peritoneal reflection identified, this was picked up and entered sharply with White scissors. A right angle retractor was inserted into the vesicouterine space. The uterosacral ligaments were clamped with Shanon clamps, cut, and suture ligated. Follow-up were the cardinal ligaments. Great apical support encountered and descent of uterus was progressively noted. The uterine vessels were identified, clamped, and cut and suture ligated. The broad and round ligaments were then clamped, coagulated and cut utilizing LigaSure Impact device. Hemostasis secured. Finally the ovarian ligaments were clamped, coagulated and cut utilizing LigaSure Impact device. On the right side, with the first clamp and coagulation of the ovarian ligament there was slippage of tissue and bleeding was seen, I then proceeded quickly to continue to clamp, coagulate and cut the right ligament and this liberated the uterus from the right side, at this time no further bleeding was noted. The same procedure was performed on the left side and this completed removal of the uterus. The uterus was removed through the vagina. The right pelvis sidewall was further explored at this time, decision was made to proceed inspection vaginally since no bleeding was noted at the time. The bowel was packed for further exploration of the right pelvic sidewall. The right ovary was seen and surrounding pedicles looked hemostatic. Packs were removed and patient was flattened out, no bleeding identified. Patient was again placed in lithotomy position, bowel was packed again, right pelvic sidewall was again explored and no evidence of bleeding identified. Decision was made to proceed with vaginal surgery. Since great apical support was noted throughout surgery, decision was made not to perform apical support procedure. The vaginal cuff was then closed utilizing Vicryl 0 in a series of interrupted figure of 8 stitches. Hemostasis secured. Attention was then placed to posterior vaginal wall. Rectal exam confirmed presence of rectocele/enterocele up to about 1cm below vaginal cuff. Allis clamps utilized to delineate area of dissection. The area of anticipated dissection was injected with dilute vasopressin. A midline incision was made with scalpel from the perineum to the proximal border of the posterior wall defect. Vaginal epithelium was then dissected off of the underlying rectovaginal connective tissue. The rectovaginal fibromuscular layer was then plicated in the midline utilizing Vicryl 2-0, interruptedly. The excess vaginal tissue was trimmed. The midline incision was then closed in a running fashion using Vicryl 2-0. Attention was then placed to the perineum, the hymen was grasped with 2 allis clamps and a sarbjit shape incision was made in the perineal skin with scalpel. This was then trimmed off and the bulbocavernous muscles were plicated in the midline with Vicryl 2-0, followed by the transverse perineal muscles. The midline incision was then closed in a running fashion using Vicryl 2-0. Rectal exam confirmed no injury to the rectum. Cystoscopy was then performed, we had already asked for IV Fluoresce, normal findings as above. Vaginal packing with Premarin was left in place in place.All instruments were removed from the vagina, and all counts were correct x2. The patient was taken to the recovery room in a stable condition.
[2022-01-20 16:55] LABS: Hemoglobin* 12.7 gm/dL (12.0-16.0)
[2022-01-20] MEDS: LACTATED RINGERS 1000 ML 1,000 ML 125 ML IV ×2 (18:00→20:56)
--- NOTE | 2022-01-20 18:03 | P.GYNPN_ITS ---
GREEN BUILDING ENERGY ENGINEER - A/P Postoperative Procedures: Procedures Operation Date: 01/20/22 08:00 Actual Procedure Side Surgeon p Total Vaginal Hysterectomy ,Posterior Repair with perineorrhaphy, Cystoscopy Aleena De Souza MD Postoperative day: 0 Postoperative status: other Postoperative plan: other (To OR for pelvic exam under anesthesia) Time Spent With Patient Time: Total time spent is greater than 50% in coordination of care (as documented) at patient's floor/unit and/or counseling patient: Time with patient: 25 - 35 minutes GREEN BUILDING ENERGY ENGINEER- PN:Subj Post-Op Subjective Date Seen: 01/20/22 Post Operative Details: Post-operative day number 0: status post total vaginal hysterectomy, posterior repair and perineorrhaphy. I came in this afternoon to re assess and see how patient was feeling, her only complain was that of right hand tingling and numbness sensation and feeling like her bladder was full. I repeated a hemoglobin this afternoon and since it was found normal, decision was made to remove vaginal packing and to remove solomon catheter tonight. I came in to remove both and 1 minute after removal she complained of feeling of bleeding per vagina. I checked her and there was bright red bleeding seen. I did a bimanual exam and her vaginal cuff palpates normal, w/o fullness or significant tenderness. Blood seems bright red as if a stitch had been pulled out with removal of the vaginal packing. I am unable to completely assess where bleeding is coming from with a bedside exam and I will proceed to take her to the OR for an EUA. GREEN BUILDING ENERGY ENGINEER-PN: Obj Exam Physical Exam: Vital signs: Temp Pulse Resp BP Pulse Ox O2 Del Method O2 Flow Rate 98.4 F 96 18 120/80 96 0 01/20/22 16:46 01/20/22 17:50 01/20/22 17:50 01/20/22 17:50 01/20/22 17:50 01/20/22 17:50 01/20/22 17:50 Narrative: Solomon catheter was removed with adequate output and clear urine. Pelvis: Perineal repair looks intact, lower third of vagina stitches look intact, I am unable to visualize the upper third of vagina or vaginal cuff. Urinary Catheter Management: Urethral: Cath placed during this visit: yes, but has since been removed by the nurse Reason for continuing: decision to DC catheter Removal date: 01/20/22 Removal time: 17:10 GREEN BUILDING ENERGY ENGINEER - PN: Obj Data Labs Labs: Laboratory Results - last 24 hr 01/20/22 01/20/22 01/20/22 07:26 07:26 16:47 Hgb 14.3 12.7 HCG, Qual Negative
--- NOTE | 2022-01-20 18:40 | PC.NURSE ---
Pt. back to the OR via the bed for vaginal bleeding after MD took the vaginal packing out. Pt requesting no male nurses if possible with her exposed, she states she had an anxiety after an experience with another hospital. She is aware that the circulating nurse is male, Dr. De Souza states she will place the catheter and she states in front of Arturo RN that if she is not awake and not aware she is fine with him performing cares.
--- NOTE | 2022-01-20 19:27 | W.PM.GYNPROC ---
Procedure Note Date Seen: 01/20/22 Procedure Details: Preop diagnosis: Vaginal bleeding after surgery. Postop diagnosis: Bleeding from raw edge of vagina, apex of posterior repair Name of procedure: Pelvic exam under anesthesia, suturing of bleeding from raw edge of vagina, apex of posterior repair Surgeon: Thomas De Souza MD Shipfitter Helper: None Complications: None EBL: 10mL Drains: Valencia catheter Findings: [place] of posterior repair seen to have an exposed raw edge bleeding. Informed consent signed, patient was moved to the OR and GETA was administered w/o difficulty. She was placed in the dorsal lithotomy position utilizing Jatin type stirrups. External genitalia was cleansed in the usual sterile manner. Patient was draped in the usual sterile manner. A Valencia catheter was placed utilizing aseptic techniques. Utilizing a [place] and [place] retractors bleeding site was identified as described above. Utilizing Vicryl 2-0 continuos interlocking sutures placed to achieve hemostasis. To further secure hemostasis of any possible remaining bleeding edge Neema was sprayed to the vaginal cuff and posterior vagina. Again, hemostasis was secured. Procedure ended. All instruments removed from vagina. Patient was transferred stable to her room.
--- NOTE | 2022-01-20 19:43 | W.ANESCHARGE ---
Anesthesia Charges Start Date/Time Anesthesia Start Date: 01/20/22 Anesthesia Start Time: 18:30 Stop Date/Time Anesthesia Stop Date: 01/20/22 Anesthesia Stop Time: 19:40 Summary Emergency: Yes
[2022-01-20] MEDS: KETOROLAC 30 MG/ML inj IVP (20:35)
[2022-01-20] MEDS: ACETAMINOPHEN 325 MG TABLET 1000 MG PO (23:07)
[2022-01-21] VITALS: BP 121/83; PULSE 96; RESP 16; TEMP 36.9; O2SAT 95
[2022-01-21] MEDS: DOCUSATE SODIUM 100 MG CAPSULE PO (00:15)
[2022-01-21 01:00] VITALS: BP 115/80; PULSE 84; RESP 16; TEMP 36.6; O2SAT 95
[2022-01-21] MEDS: KETOROLAC 30 MG/ML inj IVP (02:32)
[2022-01-21] MEDS: SODIUM CHLORIDE 0.9 % (FLUSH) 10 ML SYRINGE IVF (02:33)
[2022-01-21] MEDS: ACETAMINOPHEN 325 MG TABLET 1000 MG PO ×2 (04:56→12:28)
[2022-01-21 05:00] VITALS: BP 122/85; PULSE 65; RESP 16; TEMP 36.5; O2SAT 99
[2022-01-21] MEDS: IBUPROFEN 600 MG TABLET PO (06:39)
[2022-01-21 06:41] LABS: Hemoglobin* 11.4 gm/dL (12.0-16.0)
[2022-01-21 07:01] LABS: Creatinine* 0.6 mg/dL (0.5-1.5); Est. Creatinine Clearance* 96.92; Estimated Glomerular Filt Rate 112 ml/min
[2022-01-21 07:45] VITALS: BP 128/85; PULSE 92; RESP 16; TEMP 36.9; O2SAT 97
[2022-01-21 08:45] VITALS: PULSE 97; RESP 16
--- NOTE | 2022-01-21 09:32 | P.DS_ITS ---
DS: Providers Provider Date Seen: 01/21/22 Date of admission: 01/20/2022 Primary care physician: Katty Rojas APRN, ELEVATOR DISPATCHER Admitting Clinician: Aleena De Souza MD Attending Physician on discharge: Alyse Cassidy MD Date of Discharge: 01/21/22 DS: Diagnosis Discharge Diagnosis (1) Status post vaginal hysterectomy: Status: Acute Problem details: Total vaginal hysterectomy, posterior colporrhaphy, perineorrhaphy, cystoscopy, followed by pelvic exam under anesthesia, suturing of bleeding from raw edge of vagina, apex of posterior repair on POD #0 CAN BANDER OPERATOR-Discharge Summary Hospital Course Hospital Course Narrative: Patient is a 46 year old admitted on 01/20/2022 for surgical managment of abnormal uterine bleeding and pelvic organ prolapse. Indication for surgery: abnormal uterine bleeding and pelvic organ prolapse. Intraoperative findings were notable for posterior vaginal wall prolapse grade 3, uterine prolapse grade 1, anterior vaginal wall prolapse grade 1. She had an uncomplicated surgery. Postoperative course was complicated by vagin al bleeding on POD #0 following removal of foloey catheter and vaginal packing. She was taken back to the operating room for pelvic exam under anesthesia, suturing of bleeding from raw edge of vagina, apex of posterior repair. She had no further vaginal bleeding and the remainder of her postoperative course was unremarkable. Vitals have been stable. She has remained afebrile. Today, on postoperative day 1, she reports the pain is well controlled. She has been able to ambulate Without difficulty. She is tolerating regular diet. She is passing flatus. Valencia catheter has been removed, and she is voiding without difficulty. Time Spent with Patient Time attestation: Total time spent providing and/or coordinating discharge services: Time spent: Less than 30 minutes CAN BANDER OPERATOR - Exam Physical Exam: Vital signs: Temp Pulse Resp BP Pulse Ox O2 Del Method O2 Flow Rate 97.7 F 65 16 122/85 99 1 01/21/22 05:00 01/21/22 05:00 01/21/22 05:00 01/21/22 05:00 01/21/22 05:00 01/21/22 05:00 01/21/22 05:00 Constitutional: Constitutional: no acute distress and cooperative Routine HEENT Exam: Head: Present normal inspection Eye: Present normal appearance Routine Neck Exam: NECK: Present supple Routine Respiratory Exam: Comments: Normal respiratory effort Routine Cardiovascular Exam: Cardiovascular: Present RRR Routine Abdominal Exam: Abdominal: Present normal bowel sounds and soft; Absent tenderness Routine Exam: External: Present normal external exam Routine Extremities Exam: Extremities: Present normal inspection Routine Neurological Exam: Neurological: Present alert and oriented X3 Routine Psychiatric Exam: Psychiatric: Present normal affect CAN BANDER OPERATOR - DS: Data Data Completed and Pending Labs on day of discharge: Labs from last 24 hours 01/21/22 01/21/22 01/20/22 06:20 06:20 16:47 Hgb 11.4 L 12.7 Creatinine 0.6 Estimated Creat Clear 96.92 Estimated GFR 112 Procedures Procedures: Procedures Operation Date: 01/20/22 08:00 Actual Procedure Side Surgeon p Total Vaginal Hysterectomy ,Posterior Repair with perineorrhaphy, Cystoscopy Aleena De Souza MD Operation Date: 01/20/22 18:30 Actual Procedure Side Surgeon p EXAM UNDER ANESTHESIA Not Applicable Aleena De Souza MD Discharge Plan Discharge Disposition: Home, Self-Care Discharge Location: [facility] Discharging Surgeon: Alyse Cassidy Follow-Up Appointment: 2 weeks [facility] with CGM Prescriptions: New docusate sodium 100 mg Capsule 100 mg PO BID PRN (Reason: Constipation) Qty: 30 0RF ibuprofen 600 mg Tablet 600 mg PO Q6H Qty: 30 0RF oxycodone 5 mg Tablet 5 mg PO Q4H PRN (Reason: Moderate Pain) Qty: 15 0RF Continued venlafaxine 150 mg capsule,extended release 24hr 300 mg PO QAM 90 Days Qty: 180 3RF ropinirole 1 mg tablet 2 mg PO QDAY 90 Days Qty: 180 3RF albuterol sulfate 90 mcg/actuation HFA aerosol inhaler 2 inh inhalation Q6-8H PRN (Reason: shortness of breath or wheezing) 30 Days Qty: 8.5 8RF verapamil 180 mg capsule,ext rel. pellets 24 hr 180 mg PO QDAY 30 Days Qty: 30 1RF Discontinued Mirena 20 mcg/24 hours (8 yrs) 52 mg intrauterine device 1 device intrauterine ONCE Rx Instructions: as a single dose peg 3350-electrolytes [Golytely] 236-22.74-6.74 -5.86 gram recon soln 240 ml PO Q10M Qty: 4000 0RF Rx Instructions: until fecal effluent is clear Activity Level: No Weight Bearing Activity Detail: Nothing per vagina for 6-8 weeks, no heavy lifting (15-20 pounds) for 6-8 weeks. Follow up in clinic in 2 weeks. Patient Instructions: Surgical Site Infections (DC) Forms: Work/School Release Follow-up: Aleena De Souza MD [Staff Physician] - Katty Rojas APRN, ELEVATOR DISPATCHER [Primary Care Provider] - Discharge Orders: Discharge Order (Routine); Ordered 01/21/22 Ordered By: Alyse Cassidy
== END 2022-01-21 12:44 | disposition home or self-care (01) ==
LOC: OR 06:45 → OB 06:48
PROVIDERS: PCP Nurse Practitioner Family; Visit Provider Obstetrics & Gynecology
PROC: 0TJB8ZZ Inspection of Bladder, Via Natural or Artificial Opening Endoscopic (ICD-10-PCS; CPT 57260; principal; 2022-01-20 08:00)
PROC: (CPT 58260; principal; 2022-01-20 18:20)
DX: N81.3 Complete uterovaginal prolapse (principal); N93.8 Other specified abnormal uterine and vaginal bleeding; N99.820 Postprocedural hemorrhage of a genitourinary system organ or structure following a genitourinary system procedure
CPT/HCPCS: 58260; 57250; 57200; 36415; 82565; 84703; 85018; 88307; 940; 944; 99140; A9270; J0330; J1100; J1200; J1885; J2405; J2704; J2710; J3010; J3475; J3490; J7120

== ENCOUNTER 2022-02-02 15:56 | Outpatient (CLI) | payer BC, SELFPAY | END 2022-02-02 15:57 | disposition home or self-care (01) | LOC: NFLDREF 16:18 | PROVIDERS: PCP Nurse Practitioner Family; Visit Provider Obstetrics & Gynecology | DX: N89.8 Other specified noninflammatory disorders of vagina (principal); L08.9 Local infection of the skin and subcutaneous tissue, unspecified; T14.8XXA Other injury of unspecified body region, initial encounter | CPT/HCPCS: 87070; 87186 ==

== ENCOUNTER 2022-04-04 09:08 | Outpatient (CLI) | payer BC, SELFPAY ==
--- NOTE | 2022-04-04 09:30 | MR_ITS ---
[facility] [address] [address] Phone:?[phone] Fax:?[phone] Referring Physician Information: Linette Galeana [address] [address] Phone:?[phone] Fax:?[phone] Patient:Erasmo Edwards D.O.B:?1975 Sex:?Female Phone:?[phone] [facility] MRN:?[id number] Exam Date:?04/04/2022 ? EXAM: MRI of the LEFT FOOT, including forefoot and midfoot, without contrast CLINICAL INFORMATION: Female, 46 years old, with left foot pain after a fall. INDICATION: Evaluate foot pain. PRIOR SURGERY: None reported. PLAIN FILMS: None available. COMPARISONS: No prior MRIs available. TECHNICAL INFORMATION: Using a 1.5T MR scanner and a localizing surface coil: sagittals: PD, T2 axials (long-axis): PD, T2, STIR coronals (short-axis): T1, STIR SEDATION: None CONTRAST: None FINDINGS: Osseous structures: Forefoot: No fracture, stress injury or marrow edema/pathology. 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 Midfoot: Mild edema-like signal is present in the lateral aspect cuboid, without fracture (coronal STIR series 5 image 31 and axial STIR series 8 image 19). Tarsal coalition: No calcaneonavicular or cubonavicular coalition. Joints: IP: No arthropathy or pathologic effusion. MTP: Minimal joint space narrowing and osteophytosis of the 1st MTP joint. The 2nd-5th MTP joints are unremarkable. TMT: No arthropathy or pathologic effusion. Tarsal: Mild joint space narrowing and reactive osseous changes of the calcaneocuboid joint (axial STIR series 8 images 15-17). Lisfranc joint ligamentous complex: Lisfranc ligament complex: Dorsal, interosseous and plantar ligaments are intact, without sprain or disruption. TMT/intermetatarsal ligaments: Intact without sprain/disruption. Myotendinous structures: Flexor tendons: Intact, without tendinopathy, tear, or tenosynovitis. Extensor tendons: Intact, without tendinopathy, tear, or tenosynovitis. Plantar aponeurosis: Normal, without ongoing fasciopathy, tear or mass, although its proximal aspect at calcaneus is not included. Intrinsic musculature: Mild edema-like signal is present within the abductor hallucis and flexor digitorum brevis muscle bellies (coronal STIR series 5 images 23-36). No muscle tear. Soft tissues: No demonstrable plantar interdigital neuroma. Moderate subcutaneous soft tissue edema is present throughout the dorsal/lateral aspect of the midfoot and forefoot (coronal STIR series 5 image 18). Mild-moderate 1st and mild 2nd intermetatarsal bursitis (axial STIR series 8 images 17-19). No soft tissue masses or ganglion cysts. IMPRESSION: 1. Focal contusion of the lateral aspect of the cuboid, without fracture. 2. Grade 1 strains of the abductor hallucis and flexor digitorum brevis muscle bellies, without tear. 3. Mild osteoarthritis of the calcaneocuboid joint. 4. Minimal 1st MTP joint osteoarthritis. 5. Mild-moderate 1st and mild 2nd intermetatarsal bursitis with moderate subcutaneous soft tissue edema throughout the dorsal/lateral aspect of the midfoot and forefoot. 6. No ligamentous sprain/tear. 7. No other myotendinous abnormality. BC Electronically signed on 04/04/2022 12:18:00 PM by Steve Ho M.D.
== END 2022-04-04 09:09 | disposition home or self-care (01) ==
LOC: MRI 09:08
PROVIDERS: PCP Nurse Practitioner Family; Visit Provider Nurse Practitioner Family
DX: M79.672 Pain in left foot (principal); S96.112A Strain of muscle and tendon of long extensor muscle of toe at ankle and foot level, left foot, initial encounter; M19.072 Primary osteoarthritis, left ankle and foot; M77.52 Other enthesopathy of left foot and ankle
CPT/HCPCS: 73718

== ENCOUNTER 2022-11-20 06:00 | Day surgery (SDC) | payer BC, SELFPAY ==
[2022-11-20] VITALS (9 sets, daily range): BP systolic 116–151; BP diastolic 70–95; PULSE 72–106; RESP 16; TEMP 36.6–36.8; O2SAT 95–100; BMI 47.2
[2022-11-20] MEDS: LACTATED RINGERS 1000 ML 1,000 ML 100 ML IV (06:40)
[2022-11-20] MEDS: SODIUM CHLORIDE 0.9 % (FLUSH) 10 ML SYRINGE IVF (06:41)
[2022-11-20] MEDS: fentaNYL 100 MCG/2 ML inj IVP (07:11)
[2022-11-20] MEDS: MIDAZOLAM HCL 1 MG/ML inj IVP (07:11)
--- NOTE | 2022-11-20 07:15 | CRLHL7_ITS ---
For Patients: As a result of the Cures Act, medical imaging exams and procedure reports are released immediately into your electronic medical record. You may view this report before your referring provider. If you have questions, please contact your health care provider. Indication: INTRA OP LEFT FOOT DEBRIDEMENT AND FUSION Technique: Two fluoroscopic images of left foot. Fluoroscopic time 11.2 seconds. IMPRESSION: Fluoroscopic guidance for foot surgery. Dictated by Maurice Contreras MD @ 11/20/2022 1:20:54 PM (Electronically Signed)
[2022-11-20] MEDS: CEFAZOLIN 2 GM INJ IVP (07:35)
[2022-11-20] MEDS: BUPIVACAINE 0.5% 30 ML 20 ML INJECTION (07:45)
--- NOTE | 2022-11-20 07:51 | SUR.PREOP ---
TIME?OUT:?0710 PT/RN/MDA?VERIFICATION?OF?SURGICAL?SITE,?PROCEDURE,?AND?CONSENT OBTAINED?PRIOR?TO?INVASIVE?PROCEDURE. all in agreement
--- NOTE | 2022-11-20 07:54 | P.NB_ITS ---
Nerve Block Nerve Block Time Seen by Provider: 07:17 Date Seen: 11/20/22 Type of block requested by surgeon for post-operative analgesia: popliteal Side: left Time out performed: Yes Verification of patient name: Yes Verification of date of : Yes Site marking: site marked Name of person performing procedure: Gary Continuous monitoring Was continuous monitoring of O2 sat, B/P, chief program officer, recorded every 15 minutes?: Yes Procedure Checklist: sterile prep, needles and gloves Ultrasound guided. Images saved: Yes Medications given in 5ml increments after negative aspiration: Ropivicaine %: 0.5 mL: 20 Needle gauge: 22 Patient tolerated procedure well: Yes Additional comments: Needle noted adjacent to nerve Block Charges Block Charge (with Pro Fee): Sciatic Nerve Use of Ultrasound Machine for Block: Yes- US Guidance/pain block
--- NOTE | 2022-11-20 07:55 | W.ANESCHARGE ---
Anesthesia Charges Start Date/Time Anesthesia Start Date: 11/20/22 Anesthesia Start Time: 07:25 Stop Date/Time Anesthesia Stop Date: 11/20/22 Anesthesia Stop Time: 09:05
--- NOTE | 2022-11-20 09:06 | W.ANESCHARGE ---
Anesthesia Charges Start Date/Time Anesthesia Start Date: 11/20/22 Anesthesia Start Time: 07:25 Stop Date/Time Anesthesia Stop Date: 11/20/22 Anesthesia Stop Time: 09:05
--- NOTE | 2022-11-20 09:25 | P.PCN_ITS ---
Procedure Note Date Seen: 11/20/22 Date of procedure: 11/20/22 Will [facility] bill your pro fee for this procedure?: No Pre-op diagnosis: Degenerative joint disease left calcaneocuboid joint Post-op diagnosis: same Procedure: Debridement of calcaneocuboid joint with stabilization left Procedure Description: Hemostasis: Ankle tourniquet 250 mm Hg Complications: None apparent Indication for surgery: Patient seen in clinic for ongoing pain at the calcaneocuboid joint. Palpable bony spurring noted and MRI results indicating cystic formation of the cuboid and bony fragment formation on the calcaneus. She has elected to have surgical intervention. I reviewed the procedure, recovery, expectations potential complications. These include but are not limited to: Poor wound healing, infection, potential need for future surgery, continued pain, it is deep venous thrombosis, pulmonary embolism and possible . She understands risks written consent was obtained. Site was marked. Procedure in detail: Patient was brought in the operating room placed when position operating table. She had a preoperative popliteal block by Anesthesia. She was prepped and draped in a sterile fashion. Standard time-out protocol followed. The left limb was exsanguinated the tourniquet inflated. Linear incision was made over the dorsal lateral aspect of the calcaneocuboid joint. Incision was carried down through skin subcutaneous tissues. Extensor digitorum brevis reflected superiorly. Capsular incision made and capsule reflected away from the joint superior and inferior. Large prominent bony spurring noted to both the calcaneus and cuboid. This was removed with a rongeur and remodeled with a rotary bur. I inspected the navicular cuboid joint and no bony bridging noted. Anterior process the calcaneus showed no evidence of fibrous or bony coalition with the navicular. The overall joint surface of the calcaneocuboid joint was 95% excellent appearing cartilage. The only abnormal cartilage was lateral and anterior and this was removed with the spurred area. 0.062 K-wire was used to fenestrate superior medial aspect of the cuboid and the deep a cystic area was identified and drained of bloody fluid. Wound was thoroughly irrigated with sterile saline. SwiveLock anchor was placed in the cuboid with FiberTape. The calcaneocuboid joint was held in anatomic position and corresponding SwiveLock anchor was then placed in the cuboid tensioning the FiberTape and stabilizing the calcaneocuboid joint. All abnormal motion was corrected. Joint capsule and deep fascia repaired with 3-0 Vicryl. Subcutaneous tissues reapproximated 4-0 Monocryl. Skin closed with 4-0 Prolene. Sterile dressing was applied. Tourniquet was released and normal capillary fill time returned all digits. She was placed in a well-padded cam boot. She was transferred from OR to PACU vital signs stable and vascular status intact. She will be discharged per Anesthesia. She was given oxycodone for pain. Both written and verbal postop instructions given. She will follow-up in 3 days. She is nonweightbearing with crutches or walker. She will be allowed to do heel weight-bearing for transfers. Anesthesia: MAC and regional Surgeon: Anant Reddy DPM ACFAS Estimated blood loss (mL): 2 Pathology: none sent Condition: stable Disposition: same day
== END 2022-11-20 11:26 | disposition home or self-care (01) ==
PROVIDERS: PCP Nurse Practitioner Family; Visit Provider Podiatrist
PROC: (CPT 28740; principal; 2022-11-20 07:15)
DX: M19.072 Primary osteoarthritis, left ankle and foot (principal); M79.672 Pain in left foot; G89.18 Other acute postprocedural pain
CPT/HCPCS: 28740; 28120; 01480; 64445; 73620; 76942; A4580; C1713; J0665; J0690; J1100; J2250; J2405; J2704; J2795; J3010; J3490; J7120

== ENCOUNTER 2023-05-02 18:03 | Outpatient (CLI) | payer BC, SELFPAY ==
--- NOTE | 2023-05-02 18:15 | MR_ITS ---
Patient: DAX JOHNSON Facility:?[facility] Patient ID:?[id number] Site Patient ID:?[id number]. Site :?[id number] Study:?MRI-Spine Cervical W/O-05/02/2023 7:20:48 PM Ordering Physician:?DEANNE GAO Final Report: Indication: Myalgia, cervical disc herniation. Technique: Multisequence multiplanar MRI of the cervical spine without the use of intravenous contrast. Comparison: None available. Findings: Straightening of the normal cervical lordosis with multilevel disc height loss most pronounced C5-C6 and C6-C7. Vertebral body heights are maintained. Bone marrow signal intensity is within normal limits. The cervical spinal cord is normal in signal intensity. The paraspinal soft tissues are unremarkable. C2-C3: No significant spinal canal or right neuroforaminal stenosis. Mild left neural foraminal narrowing resulting from facet joint hypertrophy. C3-C4: Shallow symmetric disc bulge. No significant spinal canal stenosis. Mild bilateral neural foraminal narrowing resulting predominantly from facet joint hypertrophy. C4-C5: Small posterior disc osteophyte complex. No significant spinal canal stenosis. Mild-moderate left neural foraminal narrowing resulting from uncovertebral and facet joint arthrosis. No significant right neural foraminal narrowing. C5-C6: Posterior disc osteophyte complex indenting the ventral thecal sac and resulting in mild spinal canal stenosis. Moderate-severe bilateral neural foraminal narrowing predominantly sequela of uncovertebral arthrosis. C6-C7: Posterior disc osteophyte complex with superimposed central disc protrusion (series 5, image 28) resulting in mild spinal canal stenosis. Moderate right and moderate-severe left neural foraminal narrowing from uncovertebral and facet joint arthrosis. C7-T1: No significant spinal canal stenosis. Mild bilateral neural foraminal narrowing as sequela of facet joint hypertrophy. Impression: 1. Straightening of the cervical lordosis with multilevel disc height loss most pronounced at C5-C6 and C6-C7. 2. Normal signal intensity of the cervical spinal cord. 3. At C4-C5, mild-moderate left neural foraminal narrowing. 4. At C5-C6, mild spinal canal stenosis and moderate-severe bilateral neural foraminal narrowing. 5. At C6-C7, mild spinal canal stenosis resulting from a posterior disc osteophyte complex and superimposed central disc protrusion, moderate right neural foraminal narrowing, and moderate-severe left neural foraminal narrowing. Dictated by Kirby Torrez MD @ 05/03/2023 1:23:16 PM Signed by:?Kirby Torerz MD @05/03/2023 1:23:16 PM (Electronic Signature)
== END 2023-05-02 18:04 | disposition home or self-care (01) ==
LOC: MRI 18:04
PROVIDERS: PCP Nurse Practitioner Family; Visit Provider Nurse Practitioner Family
DX: M54.2 Cervicalgia (principal); M50.221 Other cervical disc displacement at C4-C5 level; M50.222 Other cervical disc displacement at C5-C6 level; M50.223 Other cervical disc displacement at C6-C7 level; M79.18 Myalgia, other site
CPT/HCPCS: 72141

== ENCOUNTER 2023-07-12 09:40 | Outpatient (CLI) | payer BC, SELFPAY ==
[2023-07-12 14:02] LABS: Strep A DNA Probe* DETECTED (Not Detectd)
== END 2023-07-12 09:41 | disposition home or self-care (01) ==
PROVIDERS: PCP Nurse Practitioner Family; Visit Provider Nurse Practitioner Family
DX: J02.9 Acute pharyngitis, unspecified (principal)
CPT/HCPCS: 85025; 86308; 87651

== ENCOUNTER 2023-11-22 09:18 | Outpatient (CLI) | payer BC, SELFPAY ==
--- OUTSIDE RECORDS SUMMARY | 2023-11-22 09:21 | XMS_ITS | Clinical Summary ---
Author Organization [facility] Address [place], [place] [address] Care Team Providers Care Nursery Technician Name Role Phone Katty Rojas NP Primary Care Provider Trini vailable Benito Galvez MD Unavailable Zoie Ramírez RN Unavailable Allergies Active Allergy Reactions Criticality Noted Date Comments Codeine Other - Describe In Comment Field 02/23/2017 Per patient: Cannot remember anything, out of it, drunk-like Medications Medication Sig Dispensed Refills Start Date End Date Status rOPINIRole (REQUIP) 0.25 mg tablet Take 1 tablet by mouth. 0.25-0.50 mg prn 0 02/23/2017 Active venlafaxine (EFFEXOR) 100 mg tablet Take 300 mg by mouth once daily in the afternoon. 0 02/23/2017 Active verapamil (CALAN) 40 mg tabletIndications:S/P laparoscopic sleeve gastrectomy Take 1 tablet by mouth twice daily 60 tablet 09/26/2017 Active oxyCODONE (ROXICODONE) 5 mg immediate release tabletIndications:DJD (degenerative joint disease), ankle and foot, left Take 1-2 Tablets (5-10 mg) by mouth every 4 hours if needed for Pain. 20 Tablet 11/20/2022 Active verapamiL (VERELAN) 240 mg Controlled-Release capsule Take 240 mg by mouth one time. At Bedtime 02/28/2023 Active rOPINIRole (REQUIP) 1 mg tablet Take 1 mg by mouth at bedtime. 05/25/2020 Active venlafaxine (EFFEXOR XR) 150 mg Extended-Release capsule Take 150 mg by mouth once daily with evening meal. 03/15/2021 Active albuterol HFA (Ventolin HFA) 90 mcg/actuation inhaler Inhale 2 Puffs by mouth 4 times daily if needed. Active Active Problems Patient Care Coordination No te Formatting of this note is d ifferent from the original. Weight Management - Adult Surgical Program Initial Consult 03/15/2017 Dr. Domingo Galvez Intake:299 Wt Readings from Last 1 Encounters: 03/15/17 135.8 kg (299 lb 6.4 oz) lbs Planned Operation undecided Payor: [employer] / Plan: [employer] [facility] / Product Type: *No Product type* / Est. Pgm Completion: October, Procedure Location: [facility] Co-morbidities: To be determined Orders: Labs Yes okay Imaging N/A. GB out in 1998 Pre-Surgery Program Consults: - Registered Dietitian 6 03/15/17 04/13/17 05/14/17 06/13/17 - Psychological Evaluation: Alka Merino 04/23/17 and 05/21/17 Referrals: Problem Noted Date Diagnosed Date Morbid obesity 03/28/2018 S/P laparoscopic sleeve gastrectomy 09/26/2017 Overview (09/26/2017): Dr. Galvez Hypertension 03/15/2017 Hyperlipidemia 03/15/2017 Resolved Problems Problem Noted Date Diagnosed Date Resolved Date Morbid obesity with BMI [...] Date Smoking Tobacco: Never Smokeless Tobacco: Never Tobacco Cessation:Counseling Given: Yes Alcohol Use Standard Drinks/Week Comments No 0 (1 standard drink = 0.6 oz pur e alcohol) rarely Social Connections Answer Date Recorded Frequency of Communication with Friends and Fami ly Not on file 02/05/2021 Financial Resource Strain Answer Date R ecorded Difficulty of Paying Living Expenses Not on file 02/05/2021 Difficulty of Paying Living Expenses Not on file 02/05/2021 Sex and Gender Information Value Date Recorded Sex Assigned at Female 10/01/2019 10:58 AM CDT Gender Identity Female 10/01/2019 10:58 AM CDT Sexual Orientation Straight 10/01/2019 10 :58 AM CDT Obstetrics History Last Filed Vital Signs Vital Sign Reading Time Taken Comments Blood Pressure 163/102 05/28/2023 10:01 AM CDT Pulse 88 05/28/2023 10:01 AM CDT Temperature 36.8 ??C (98.2 ??F) 05/28/2023 10:01 AM C DT Respiratory Rate 17 05/28/2023 10:01 AM CDT Oxygen Saturation 95% 05/28/2023 10:01 AM CDT Inhaled Oxygen Concentration - - Weight 116.1 kg (256 lb) 01/04/2023 12:56 PM AUTOMOTIVE QUALITY MANAGER Height 160 cm (5' 2.99) 09/26/2019 12:00 PM CDT Body Mass Index 45.36 09/26/2019 12:00 PM CDT Plan of Treatment Health Maintenance Due Date Last Done Comments Tdap 08/09/1986 Depression screening for age 12+ 1987 HIV for age 15-65 08/09/1990 Hepatitis C screening for age 18-79 08/09/1993 Tetanus booster 1995 Colonoscopy through age 75 08/09/2020 Lipids for age 45-75 08/09/2020 Mammogram for age 45-75 08/09/2020 BMI (ht and wt on same day) for age 18+ 09/25/2020 09/26/2019, 10/11/2018, 10/11/2018, Additional history exists COVID-19 vaccine series (2023- season) 2023 Influenza for age 9-49 10/07/2023 Pap test for age 21-65 12/12/2024 12/12/2021, 2021 Pneumococcal series for age 6-64 Aged Out No longer eligible based on patient's age to complete this topic Medical Devices Implanted Type Area Developer Designer Device Identifier Shelf Expiration Date Model / Serial / Lot Mesh Ventral 60 Seamguard [place] Flex - [id number] Implanted:Qty: 5 on 09/26/2017 by Benito Galvez MD at [facility] N/A: Abdomen [employer] 04/04/2020 [id number] / / [id number] Procedures Procedure Name Priority Date/Time Associated Diagnosis Comments HPV HIGH RISK Routine 12/12/2021 10:07 AM AUTOMOTIVE QUALITY MANAGER from Last 3 Months or Most Recently Relevant to Health Maintenance Results * HPV HIGH RISK (12/12/2021 10:07 AM AUTOMOTIVE QUALITY MANAGER) TYPE 16 Negative Negative 12/14/2021 2:06 PM AUTOMOTIVE QUALITY MANAGER [facility] TYPE 18 Negative Negative 12/14/2021 2:06 PM AUTOMOTIVE QUALITY MANAGER [facility] OTHER HIGH RISK TYPES Negative Negative 12/14/2021 2:06 PM AUTOMOTIVE QUALITY MANAGER [facility] Other (Cervical/Vagina l) 12/12/2021 10:07 AM AUTOMOTIVE QUALITY MANAGER 12/13/2021 9:37 AM AUTOMOTIVE QUALITY MANAGER Narrative [facility] - 12/14/2021 2:06 PM AUTOMOTIVE QUALITY MANAGER HPV types 16, 18, 31, 33, 35, 39, 45, 51, 52, 56, 58, 59, 66 and 68 DNA were undetectable or below the pre-set threshold. Methodology: Jimmy Amadou 4800 HPV Test Katty Rojas NP MICROBIOLOGY [facility] [address] [place] [address], from Last 3 Months or Most Recently Relevant to Health Maintenance Advance Directives * Full Code (Latest Code Status on File) Date Activated Date Inactivated Comments 09/26/2017 9:08 AM 09/27/2017 4:26 PM Care Teams Nursery Technician Relationship Specialty Start Date End Date Katty Rojas HEALTH SAFETY AND ENVIRONMENT MANAGER [address] [place] [address] PCP - General Emergency Medicine 03/15/17 Benito Galvez MD [address] [address] Consulting Physician Surgery - General 07/31/17 Zoie Ramírez RN [address] [address] Nurse Clinician 07/31/17
== END 2023-11-22 09:19 | disposition home or self-care (01) ==
PROVIDERS: PCP Nurse Practitioner Family; Visit Provider Nurse Practitioner Family
DX: I10 Essential (primary) hypertension (principal); E78.5 Hyperlipidemia, unspecified; L65.9 Nonscarring hair loss, unspecified; Z13.0 Encounter for screening for diseases of the blood and blood-forming organs and certain disorders involving the immune mechanism; Z90.3 Acquired absence of stomach [part of]
CPT/HCPCS: 80053; 80061; 82306; 82525; 82607; 83735; 84443; 84446; 84590; 84597; 84630; 85025

== ENCOUNTER 2023-12-21 07:29 | Outpatient (CLI) | payer BC, SELFPAY ==
--- NOTE | 2023-12-21 | CRLHL7_ITS ---
For Patients: As a result of the Cures Act, medical imaging exams and procedure reports are released immediately into your electronic medical record. You may view this report before your referring provider. If you have questions, please contact your health care provider. PLEASE SEE DIGITAL DIAGNOSTIC BILATERAL MAMMOGRAM PERFORMED SAME DAY CRL:[email or web address] hou/Dictated by: Maurice Contreras MD @ 12/21/2023 1:15:00 PM (Electronically Signed)
--- OUTSIDE RECORDS SUMMARY | 2023-12-21 07:31 | XMS_ITS | Clinical Summary ---
Author Organization [facility] Address [place], [place] [address] Care Team Providers Care Tractor Trailer Technician Name Role Phone Katty Rojas NP Primary Care Provider Trini vailable Benito Galvez MD Unavailable Zoie Ramírez RN Unavailable [phone] Allergies Active Allergy Reactions Criticality Noted Date [...] 6.4 oz) lbs Planned Operation undecided Payor: [employer] / Plan: [employer] [facility] / Product Type: *No Product type* / Est. Pgm Completion: October, Procedure Location: [facility] Co-morbidities: To be determined Orders: Labs Yes [...] 116.1 kg (256 lb) 01/04/2023 12:56 PM RENAL SOCIAL WORKER Height 160 cm (5' 2.99) 09/26/2019 12:00 [...] this topic Medical Devices Implanted Type Area Policy Writer Sales Device Identifier Shelf Expiration Date Model / Serial / Lot Mesh Ventral 60 Seamguard [place] Flex - [id number] Implanted:Qty: 5 on 09/26/2017 by Benito Galvez MD at [facility] N/A: Abdomen [employer] [facility] 04/04/2020 [id number] / / [id number] Procedures Procedure Name Priority Date/Time Associated Diagnosis Comments HPV HIGH RISK Routine 12/12/2021 10:07 AM RENAL SOCIAL WORKER from Last 3 Months or Most Recently Relevant to Health Maintenance Results * HPV HIGH RISK (12/12/2021 10:07 AM RENAL SOCIAL WORKER) TYPE 16 Negative Negative 12/14/2021 2:06 PM RENAL SOCIAL WORKER [facility] TYPE 18 Negative Negative 12/14/2021 2:06 PM RENAL SOCIAL WORKER [facility] OTHER HIGH RISK TYPES Negative Negative 12/14/2021 2:06 PM RENAL SOCIAL WORKER [facility] Other (Cervical/Vagina l) 12/12/2021 10:07 AM RENAL SOCIAL WORKER 12/13/2021 9:37 AM RENAL SOCIAL WORKER Narrative [facility] - 12/14/2021 2:06 PM RENAL SOCIAL WORKER HPV types 16, 18, 31, 33, 35, 39, 45, 51, 52, 56, 58, 59, 66 and 68 DNA were undetectable or below the pre-set threshold. Methodology: Jimmy Amadou 4800 HPV Test Katty Rojas NP MICROBIOLOGY [facility] [address] [place] [address], from Last 3 Months or Most Recently Relevant to Health Maintenance Advance Directives * Full Code (Latest Code Status on File) Date Activated Date Inactivated Comments 09/26/2017 9:08 AM 09/27/2017 4:26 PM Care Teams Tractor Trailer Technician Relationship Specialty Start Date End Date Katty Rojas DAIRY FEED WORKER [address] [place] [address] PCP - General Emergency Medicine 03/15/17 Benito Galvez MD [address] [address] Consulting Physician Surgery - General 07/31/17 Zoie Ramírez RN [address] [address] Nurse Clinician 07/31/17
--- NOTE | 2023-12-21 07:45 | CRLHL7_ITS ---
For Patients: As a result of the Century Cures Act, medical imaging exams and procedure reports are released immediately into your electronic medical record. You may view this report before your referring provider. If you have questions, please contact your health care provider. DIGITAL DIAGNOSTIC BILATERAL MAMMOGRAM USING TOMOSYNTHESIS AND COMPUTER-AIDED DETECTION LEFT AXILLARY ULTRASOUND RIGHT BREAST ULTRASOUND CLINICAL HISTORY: LEFT breast axillary lump. COMPARISON: None. TECHNIQUE: Digital BILATERAL mammogram in four projections with computer-aided detection. Tomosynthesis was used in this interpretation. Real-time ultrasound imaging of BILATERAL breast with imaging documentation. Scanning was performed by both the technologist and the radiologist. BREAST COMPOSITION: There are scattered areas of fibroglandular density. FINDINGS: 3D CC/MLO BILATERAL mammogram images submitted. No axillary adenopathy. Possible asymmetric density lateral RIGHT breast 9 cm from the nipple. No suspicious calcifications. Targeted LEFT axillary ultrasound performed. In the area of concern, there is an oblong area of hypoechoic fluid within the epidermal layer measuring 10 x 2 x 13 millimeters. No internal vascularity. No shadowing mass. Targeted RIGHT breast ultrasound performed at 9 o`clock 9 cm from the nipple corresponding with the mammogram demonstrates normal fibroglandular tissue. No discernible mass. IMPRESSION: No suspicious findings. Mildly inflamed sebaceous cyst in the LEFT axillary skin. Normal fibroglandular tissue RIGHT breast. No evidence of malignancy. RECOMMENDATIONS: Routine BILATERAL screening mammography. A lay language report of this examination will be provided to the patient. BI-RADS Category 2: Benign Dictated by Maurice Contreras MD @ 12/21/2023 1:15:28 PM jj/Dictated by: Maurice Contreras MD @ 12/21/2023 1:15:00 PM (Electronically Signed)
--- NOTE | 2023-12-21 08:15 | CRLHL7_ITS ---
For Patients: As a result of the Cures Act, medical imaging exams and procedure reports are released immediately into your electronic medical record. You may view this report before your referring provider. If you have questions, please contact your health care provider. PLEASE SEE DIGITAL DIAGNOSTIC BILATERAL MAMMOGRAM PERFORMED SAME DAY CRL:[email or web address] hou/Dictated by: Maurice Contreras MD @ 12/21/2023 1:51:00 PM (Electronically Signed)
== END 2023-12-21 07:30 | disposition home or self-care (01) ==
LOC: MAMMO 07:30
PROVIDERS: PCP Nurse Practitioner Family; Visit Provider Nurse Practitioner Family
DX: N63.20 Unspecified lump in the left breast, unspecified quadrant (principal); N60.82 Other benign mammary dysplasias of left breast; R22.30 Localized swelling, mass and lump, unspecified upper limb
CPT/HCPCS: 76642; 76882; 77066; G0279

== ENCOUNTER 2024-04-28 18:09 | Outpatient (CLI) | payer BC, SELFPAY ==
--- NOTE | 2024-04-28 18:15 | CRLHL7_ITS ---
For Patients: As a result of the Century Cures Act, medical imaging exams and procedure reports are released immediately into your electronic medical record. You may view this report before your referring provider. If you have questions, please contact your health care provider. CLINICAL INDICATION: Left hip pain. COMPARISON IMAGING STUDIES: Radiographs from 04/17/2024. TECHNICAL: Axial, sagittal and coronal PDFS small field of view images of the left hip. Coronal and axial T1 and PDFS large field of view images of the entire pelvis. 1.5 Aby MR scanner. FINDINGS: LEFT HIP: Advanced degenerative arthrosis left hip. There is prominent proximal femoral osteophyte formation. High-grade, up to full-thickness acetabular and femoral head articular cartilage wear (grade 4).. Degenerative labral tearing. Small hip joint effusion with synovitis. Underlying acetabular dysplasia with superolateral under coverage. RIGHT HIP: Degenerative arthrosis of the right hip. Subchondral cystic change is present within the anterior superior acetabulum and likely indicates that there is full-thickness acetabular articular cartilage loss (grade 4). High-grade femoral head cartilage loss superior medially. Degenerative labral tearing. No hip joint effusion. OSSEOUS STRUCTURES: No acute fracture or avascular necrosis. MUSCULOTENDINOUS STRUCTURES AND BURSAE: There is tendinosis and chronic low-grade partial tearing of the distal gluteus minimus tendons. Spurring of the greater trochanters is present. No trochanteric bursal fluid collection. Bilateral common hamstrings tendinosis. Distal iliopsoas tendons are intact. No iliopsoas bursitis. OTHER FINDINGS: Degenerative changes of the spine and sacroiliac joints. INTRAPELVIC CONTENTS: Prior hysterectomy. No inguinal hernia. IMPRESSION: 1. Advanced degenerative arthrosis of the left hip with full-thickness grade 4 cartilage wear. Degenerative labral tearing. Small hip joint effusion with synovitis. Underlying acetabular dysplasia with superolateral under coverage. 2. Degenerative arthrosis of the right hip with probable grade 4 full-thickness cartilage abnormality anterior superiorly given the presence of subchondral cystic change within the acetabulum. Degenerative labral changes. 3. No fracture or AVN. 4. Tendinosis and chronic low-grade partial tearing of the distal gluteus minimus tendons. 5. Tendinosis of the bilateral common hamstring tendons. 6. Degenerative changes of the spine and sacroiliac joints. Dictated by Bret Aleman MD @ 04/29/2024 10:24:17 AM (Electronically Signed)
== END 2024-04-28 18:10 | disposition home or self-care (01) ==
LOC: MRI 18:09
PROVIDERS: PCP Nurse Practitioner Family; Visit Provider Nurse Practitioner Family
DX: M25.552 Pain in left hip (principal); M16.0 Bilateral primary osteoarthritis of hip; M25.452 Effusion, left hip; M65.88 Other synovitis and tenosynovitis, other site; T14.8XXA Other injury of unspecified body region, initial encounter
CPT/HCPCS: 73721

== ENCOUNTER 2024-05-15 15:54 | Outpatient (CLI) | payer BC, SELFPAY | END 2024-05-15 15:55 | disposition home or self-care (01) | PROVIDERS: PCP Nurse Practitioner Family; Visit Provider Nurse Practitioner Family | DX: E78.5 Hyperlipidemia, unspecified (principal); I10 Essential (primary) hypertension | CPT/HCPCS: 80053; 85025 ==

== ENCOUNTER 2024-08-26 07:30 | Outpatient (RCR) | payer BC, SELFPAY | END 2024-12-24 23:59 | disposition home or self-care (01) | PROVIDERS: PCP Nurse Practitioner Family; Visit Provider Physician Assistant | DX: Z47.1 Aftercare following joint replacement surgery (principal); Z96.642 Presence of left artificial hip joint; M25.552 Pain in left hip; Z51.89 Encounter for other specified aftercare | CPT/HCPCS: 97032; 97110; 97112; 97116; 97140; 97162 ==

== ENCOUNTER 2024-12-16 16:31 | Outpatient (CLI) | payer BC, SELFPAY | END 2024-12-16 16:32 | disposition home or self-care (01) | PROVIDERS: PCP Nurse Practitioner Family; Visit Provider Nurse Practitioner Family | DX: Z01.818 Encounter for other preprocedural examination (principal) | CPT/HCPCS: 80053; 85025 ==